=== PATIENT | male | born 1955 | race Caucasian/White ===

== ENCOUNTER 2023-09-04 07:28 | Emergency (ER) | payer MEDICARE, SELFPAY ==
[2023-09-04] VITALS (7 sets, daily range): BP systolic 115–150; BP diastolic 62–113; PULSE 90–97; RESP 18–28; TEMP 35.6; O2SAT 94–97; BMI 39.8
--- NOTE | 2023-09-04 08:07 | CRLHL7_ITS ---
For Patients: As a result of the Century Cures Act, medical imaging exams and procedure reports are released immediately into your electronic medical record. You may view this report before your referring provider. If you have questions, please contact your health care provider. Indication: Urine and bowel frequency Technique: Volumetric multidetector CT images of the abdomen and pelvis were obtained after the administration of intravenous contrast. 126 cc Isovue 370 low osmolar intravenous contrast Comparison: CT abdomen and pelvis August 05, 2021 Findings: The lung bases are clear. The liver is enlarged with cystic changes similar to previous exam. There is moderate hepatic steatosis. The portal vein is patent. There are calcified gallstones again seen within the gallbladder. There is no pericholecystic fluid or gallbladder wall thickening. There is no significant common biliary ductal dilatation or abrupt cut off. The spleen is normal in enhancement and size. The stomach and duodenum are grossly unremarkable. The pancreas is normal in enhancement without significant atrophy. The adrenal glands are unremarkable. The kidneys demonstrate preserved corticomedullary differentiation without evidence of obstructive uropathy. There is a mild amount of stool seen throughout the colon. There is mild distal colonic diverticulosis. The appendix is unremarkable. Again seen are reactive retroperitoneal and pelvic sidewall lymph nodes slightly increasing in conspicuity from comparison with prominence of the right greater than left pelvic sidewall lymph nodes. No evidence of mesenteric adenopathy. The aorta is nonaneurysmal. There is no significant atherosclerotic disease appreciated. The solid pelvic viscera are grossly unremarkable. There is no free fluid or free air. The anterior abdominal wall is intact without significant hernias. The lumbar vertebral body heights are grossly maintained with minimal endplate Schmorl`s defects and subchondral cystic changes. There is moderate to severe facet arthrosis. Impression: There is again seen a calculus in the distal left ureter measuring 2.3 millimeters just above the ureteropelvic junction similar to previous exam without evidence of definite obstructive uropathy. This finding was present on remote comparison. Stable hepatomegaly and hepatic steatosis with stable cystic changes of the liver. Incidental note made of mildly increased prominence of the right greater than left pelvic sidewall lymph nodes present on prior exam, slightly increased in size which may represent reactive changes. Correlate with history of increased WBC/lymphocyte count if there is persistent clinical concern. No other acute intra-abdominal abnormalities are identified. Please note that all CT scans at this facility use dose modulation, iterative reconstruction, and/or weight-based dosing when appropriate to reduce radiation dose to as low as reasonably achievable. Dictated by Chapin Coles MD @ 09/04/2023 10:23:22 AM (Electronically Signed)
--- NOTE | 2023-09-04 08:08 | ED_ITS ---
HPI - General Adult General Chief complaint: Urogenital Problems, Male Stated complaint: trouble urinating,bowel incontinence Time Seen by Provider: 09/04/23 07:55 History of Present Illness HPI narrative: This 68-year-old male comes in reporting urinary frequency with small amounts over the past couple days. He also has small bowel movements frequently. He does not report any particular abdominal pain. He does not indicate any fevers. A bladder scan was performed soon after arrival here and showed evidence of 31 mL of urine in his bladder. Related Data Home Medications Medication Instructions Recorded Confirmed Victoza 2-Isaac 09/04/23 hydrochlorothiazide 25 mg tablet 25 mg PO BID 09/04/23 09/04/23 insulin glargine 100 unit/mL (3 unit subcut 09/04/23 mL) subcutaneous pen (Lantus Solostar U-100 Insulin) lisinopril 40 mg tablet 40 mg PO DAILY 09/04/23 09/04/23 metformin 500 mg tablet,extended 1,000 mg PO BID 09/04/23 09/04/23 release 24 hr metoprolol tartrate 100 mg tablet 100 mg PO BID 09/04/23 09/04/23 potassium chloride 20 mEq 20 meq PO DAILY 09/04/23 09/04/23 tablet,extended release rosuvastatin 20 mg tablet 20 mg PO QPM 09/04/23 09/04/23 spironolactone 50 mg tablet 50 mg PO DAILY 09/04/23 09/04/23 warfarin 3 mg tablet PO 09/04/23 Previous Rx's Medication Instructions Recorded cephalexin 500 mg capsule 500 mg PO TID 10 days #30 caps 09/04/23 Allergies Allergy/AdvReac Type Severity Reaction Status Date / Time No Known Drug Allergies Allergy Verified 09/04/23 07:41 Review of Systems Status of ROS: Reports: 10 or more systems reviewed and unremarkable except as noted in History and below Narrative: Constitutional: No fevers, no weight gain or loss. Eyes: No discharge. No vision changes. HENT: No congestion, no sore throat, no ear pain. Cardiovascular: No chest pain, no palpitations. Respiratory: No shortness of breath, no wheezes, no cough. Gastrointestinal: No abdominal pain, no vomiting, no diarrhea. Genitourinary: No hematuria. Urinary frequency as described above. Musculoskeletal: Normal range of motion. Skin: No rashes, no pruritis. Neurological: No dizziness, weakness, sensory change, speech change. Endo/Heme/Allergies: No bruising or bleeding. No polydipsia. Pysch: no suicidality, no anxiety, no insomnia. All other systems reviewed and are negative. PFSH PFSH Social History Smoking Status: Former smoker How often do you have a drink containing alcohol: monthly or less How often do you have six or more drinks on one occasion: Never AUDIT-C Alcohol total score: 1 Non-prescribed substance use: denies use Exam Narrative: Exam Narrative: Constitutional: Well-developed, well-nourished, no acute distress. HEENT: Normocephalic, atraumatic. Neck: Normal range of motion. Nontender. Supple. Heart: Regular. No murmurs. Normal rate. Intact distal pulses. Lungs: Clear to auscultation. No chest discomfort. No wheezes, rhonchi, or rales. Abdomen: Normal bowel sounds. Mild diffuse tenderness. No rebound tenderness. Genitalia: Deferred. Back: No midline tenderness. Normal range of motion. Extremities: Normal range of motion. No injury. Skin: Intact. No rash. Warm. No erythema or pallor. Neurologic: No altered sensation. No weakness. Alert and oriented. Psychiatric: No suicidality. No anxiety or depression. No insomnia. Nursing notes and vitals signs are reviewed. Const: Vital Signs, click to edit/add: Vital Signs - 24 hr 09/04/23 07:39 09/04/23 08:53 09/04/23 09:00 Temperature 96.1 F L Pulse Rate Pulse Rate [Pulse Oximeter] 93 97 92 Respiratory Rate 18 28 H 24 Blood Pressure Blood Pressure [Le ft Upper Arm] 150/113 H 136/67 Blood Pressure [Ri ght Upper Arm] 115/68 Pulse Oximetry 96 96 94 Oxygen Delivery Me thod Room Air Room Air Room Air 09/04/23 10:04 09/04/23 10:19 09/04/23 10:30 Temperature Pulse Rate 96 90 Pulse Rate [Pulse Oximeter] 94 Respiratory Rate 20 Blood Pressure Blood Pressure [Le ft Upper Arm] Blood Pressure [Ri ght Upper Arm] 133/62 Pulse Oximetry 95 95 97 Oxygen Delivery Me thod Room Air 09/04/23 10:32 Temperature Pulse Rate 96 Pulse Rate [Pulse Oximeter] Respiratory Rate Blood Pressure 134/73 Blood Pressure [Le ft Upper Arm] Blood Pressure [Ri ght Upper Arm] Pulse Oximetry 96 Oxygen Delivery Me thod Course Vital Signs Vital signs: Initial Vital Signs Temperature 96.1 F L 09/04/23 07:39 Temperature Source Temporal Artery Scan 09/04/23 07:39 Pulse Rate 93 09/04/23 07:39 Respiratory Rate 18 09/04/23 07:39 Blood Pressure 115/68 09/04/23 07:39 Blood Pressure Mean 83 09/04/23 07:39 Blood Pressure Position Sitting 09/04/23 07:39 Pulse Oximetry 96 09/04/23 07:39 Oxygen Delivery Method Room Air 09/04/23 07:39 Vital Signs Temperature 96.1 F L 09/04/23 07:39 Pulse Rate 93 09/04/23 07:39 Respiratory Rate 18 09/04/23 07:39 Blood Pressure 115/68 09/04/23 07:39 Pulse Oximetry 96 09/04/23 07:39 Oxygen Delivery Method Room Air 09/04/23 07:39 Temperature 96.1 F L 09/04/23 07:39 Pulse Rate 96 09/04/23 10:32 Respiratory Rate 20 09/04/23 10:04 Blood Pressure 134/73 09/04/23 10:32 Pulse Oximetry 96 09/04/23 10:32 Oxygen Delivery Method Room Air 09/04/23 10:04 Medications Administered Medications: Discontinued Medications Generic Name Dose Route Start Last Admin Trade Name Freq PRN Reason Stop Dose Admin Sodium Chloride 500 mls @ 500 mls/hr 09/04/23 08:08 09/04/23 10:41 0.9 % Sodium Chloride 500 Ml IV 09/04/23 09:07 Infused .Q1H ONE Infusion Ceftriaxone Sodium 1 gm/ 100 mls @ 200 mls/hr 09/04/23 09:37 09/04/23 10:32 Sodium Chloride IVPB 09/04/23 09:38 Infused ONCE ONE Infusion Phenazopyridine HCl 200 mg 09/04/23 10:40 09/04/23 10:50 Phenazopyridine Hcl 200 Mg Tablet PO 09/04/23 10:41 200 mg ONCE ONE Administration Medical Decision Making MDM Narrative Medical decision making narrative: This patient comes in with frequent urges to void urine occurring about every 5 or 10 minutes. He has just a very small amount that comes out. Urinalysis today shows evidence of infection. CT imaging is also obtained of the abdomen and pelvis. This returns with reassuring findings. The patient did receive an IV dose of Rocephin 1 g and an oral dose of Pyridium for symptomatic relief. He is okay to be discharged home and received a prescription for Keflex 500 mg 3 times daily for 10 days. Lab Data Labs: Lab Results 09/04/23 09/04/23 Range/Units 08:06 08:25 WBC 10.31 (4.50-11.00) K/uL RBC 4.36 (4.30-5.90) m/uL Hgb 12.7 L (13.5-17.5) gm/dL Hct 37.2 (37.0-53.0) % MCV 85 (80-100) fL MCH 29 (26-34) pg MCHC 34 (32-36) gm/dL RDW Coeff of Yunior 15.2 (11.5-15.5) % Plt Count 200 (140-440) K/uL Neut % (Auto) 75.0 H (42.0-72.0) % Lymph % (Auto) 12.1 L (20-44) % [place] % (Auto) 10.8 (0.0-11.0) % Eos % (Auto) 1.1 (0.0-7.0) % Baso % (Auto) 0.5 (0.0-3.0) % Neut # (Auto) 7.70 H (1.7-7.0) K/uL Lymph # (Auto) 1.20 (0.90-2.90) K/uL Assumption # (Auto) 1.10 H (0.00-0.90) K/UL Eos # (Auto) 0.11 (0.00-0.50) K/uL Baso # (Auto) 0.05 (0.00-0.30) K/uL Abs Immat Gran (auto) 0.05 (0.00-0.30) K/uL Imm/Tot Granulo (auto) 0.5 % Sodium 132 L (135-149) mmol/L Potassium 4.7 (3.6-5.1) mmol/L Chloride 101 (96-114) mmol/L Carbon Dioxide 15 L (20-32) mmol/L Anion Gap 16 H (7-15) mEq/L BUN 29 (7-30) mg/dL Creatinine 1.0 (0.5-1.5) mg/dL Estimated Creat Clear 67.94 Estimated GFR 83 ml/min Glucose 477 H* (60-115) mg/dL Calcium 9.7 (8.4-10.6) mg/dL Urine Color Yellow (Yellow) Urine Appearance Cloudy A (Clear) Urine pH 5.5 (5.0-8.5) Ur Specific Carver 1.015 (1.000-1.030) Urine Protein Trace A (Negative) Urine Glucose (UA) 2+ A (Negative) Urine Ketones Negative (Negative) Urine Blood 1+ A (Negative) Urine Nitrite Negative (Negative) Urine Bilirubin Negative (Negative) Urine Urobilinogen 0.2 (0.2-1.0) Ur Leukocyte Esterase Negative (Negative) Urine RBC 0-2 (0-2) Urine WBC >100 A (0-5) Ur Squamous Epith Cells None (None-Few) Urine Bacteria Few A (None) Imaging Data CT scan - abdomen: Radiologist's impression: There is again seen a calculus in the distal left ureter measuring 2.3 millimeters just above the ureteropelvic junction similar to previous exam without evidence of definite obstructive uropathy. This finding was present on remote comparison. Stable hepatomegaly and hepatic steatosis with stable cystic changes of the liver. Incidental note made of mildly increased prominence of the right greater than left pelvic sidewall lymph nodes present on prior exam, slightly increased in size which may represent reactive changes. Correlate with history of increased WBC/lymphocyte count if there is persistent clinical concern. No other acute intra-abdominal abnormalities are identified. Discharge Plan Discharge Clinical Impression: Urinary tract infection Patient Disposition: Home, Self-Care Condition: Stable Additional Instructions: Take medication as prescribed. Use [id number] pyridium (Azo, Uristat, Sandra) also as needed and directed for symptomatic relief. Return if worsening. Prescriptions: New cephalexin 500 mg capsule 500 mg PO TID 10 Days Qty: 30 0RF No Action metoprolol tartrate 100 mg tablet 100 mg PO BID warfarin 3 mg tablet PO hydrochlorothiazide 25 mg tablet 25 mg PO BID lisinopril 40 mg tablet 40 mg PO DAILY metformin 500 mg tablet extended release 24 hr 1,000 mg PO BID spironolactone 50 mg tablet 50 mg PO DAILY rosuvastatin 20 mg tablet 20 mg PO QPM insulin glargine [Lantus Solostar U-100 Insulin] 100 unit/mL (3 mL) insulin pen subcut potassium chloride 20 mEq tablet extended release 20 meq PO DAILY Victoza 2-Isaac Follow Up/Referrals: Opal Richards DO [Primary Care Provider] - Stand [facility]one [facility] Info Inst[facility]
[2023-09-04 08:14] LABS: Appearance Urine Cloudy (Clear); Bilirubin Urine Negative (Negative); Blood Urine 1+ (Negative); Color Urine Yellow (Yellow); Glucose Urine 2+ (Negative); Ketones Urine Negative (Negative); Leukocyte Esterase Urine Negative (Negative); Nitrite Urine Negative (Negative); Protein Urine Trace (Negative); Specific Gravity Urine 1.015 (1.000-1.030); Urobilinogen Urine 0.2 (0.2-1.0); pH Urine 5.5 (5.0-8.5)
[2023-09-04] MEDS: 0.9 % SODIUM CHLORIDE 500 ML 500 ML IV (08:35)
[2023-09-04 08:37] LABS: Basophils Absolute Auto 0.05 K/uL (0.00-0.30); Basophils Percent Auto 0.5 % (0.0-3.0); Eosinophils Absolute Auto 0.11 K/uL (0.00-0.50); Eosinophils Percent Auto 1.1 % (0.0-7.0); Hematocrit 37.2 % (37.0-53.0); Hemoglobin* 12.7 gm/dL (13.5-17.5); Immature Granulocytes Abs Auto 0.05 K/uL (0.00-0.30); Immature Granulocytes Pct Auto 0.5 %; Lymphocytes Percent Auto 12.1 % (20-44); Mean Corpuscular HGB Conc 34 gm/dL (32-36); Mean Corpuscular Hemoglobin 29 pg (26-34); Mean Corpuscular Volume 85 fL (80-100); Monocytes Percent Auto 10.8 % (0.0-11.0); Platelet Count* 200 K/uL (140-440); RDW Coefficient of Variation % 15.2 % (11.5-15.5); Red Blood Count 4.36 m/uL (4.30-5.90); White Blood Count* 10.31 K/uL (4.50-11.00)
[2023-09-04 08:40] LABS: Slide Review Reflex No
[2023-09-04 08:49] LABS: Chloride* 101 mmol/L (96-114)
[2023-09-04 08:50] LABS: Potassium* 4.7 mmol/L (3.6-5.1); Sodium* 132 mmol/L (135-149)
[2023-09-04 08:52] LABS: Est. Creatinine Clearance* 67.94; Estimated Glomerular Filt Rate 83 ml/min
[2023-09-04 08:53] LABS: Anion Gap 16 mEq/L (7-15); Blood Urea Nitrogen* 29 mg/dL (7-30); Calcium* 9.7 mg/dL (8.4-10.6); Carbon Dioxide* 15 mmol/L (20-32)
[2023-09-04 08:54] LABS: Bacteria Urine Few; RBC Urine 0-2 (0-2); WBC Urine >100 (0-5)
[2023-09-04 08:56] LABS: Glucose* 477 mg/dL (60-115)
--- NOTE | 2023-09-04 08:56 | ED.NURSE ---
Pt up to the restroom to urinate. Pt requested assistance while in the restroom due to feeling weak and shaky after urinating, pt needed assist of 1 to walk back to his room. Pt very SOB and shaky with exertion of walking. Vitals rechecked, notified.
--- NOTE | 2023-09-04 09:11 | ED.NURSE ---
Per administrative tech, pt needs IV access higher on arm due to speed of contrast bolus for CT scan. Pt agreeable to 2nd IV start for CT scan to be completed. 2nd IV started in pt L AC.
[2023-09-04] MEDS: cefTRIAXone 1 GM in 0.9 % SODIUM CHLORIDE Mini-bag 100 ML IVPB (10:04)
--- NOTE | 2023-09-04 10:34 | ED.NURSE ---
Pt continues to have urinary frequency and urgency, has been up to the bathroom several times. aware.
[2023-09-04] MEDS: PHENAZOPYRIDINE HCL 200 MG TABLET PO (10:50)
== END 2023-09-04 11:33 | disposition home or self-care (01) ==
PROVIDERS: Emergency Provider Emergency Medicine Emergency Medical Services; PCP Family Medicine
DX: N39.0 Urinary tract infection, site not specified (principal)
CPT/HCPCS: 36415; 51798; 74177; 80048; 81001; 85025; 87086; 87186; 96365; 99283; 99284; 99285; A9270; J0696; J7120; Q9967

== ENCOUNTER 2024-01-16 22:45 | Emergency (ER) | payer MEDICARE, SELFPAY ==
[2024-01-16 22:56] VITALS: BP 114/69; PULSE 81; RESP 28; TEMP 36.4; O2SAT 98
--- NOTE | 2024-01-16 23:07 | ED_ITS ---
HPI - General Adult General Chief complaint: Constipation Stated complaint: stomach pain Time Seen by Provider: 01/16/24 23:06 History of Present Illness HPI narrative: Pt states he can't have a BM , has felt impacted for about a week. Feels weaker than usual. Is also now having trouble urinating. Pt is having substantial pain in his anus. Pt is tachypneic in triage. 68-year-old man presenting to the emergency department with concern of increasing abdominal pain. Feels like he needs to have a bowel movement but can not really accomplish this though he does acknowledge diarrheal stools. Has been experiencing explosive diarrhea over the last week or so aided by stool softeners. Actually had 2 diarrheal bowel movements today. He says feeling though lot of pressure in the anal rectal area he says. Now feeling more weak. No fever. Doesn't feeling like he has been emptying urine now. In later questioning he does acknowledge a history of prostatic abscess Related Data Home Medications ?Medication ?Instructions ?Recorded ?Confirmed Victoza 2-Isaac 1.8 mg SUBQ-VAC DAILY 09/04/23 02/05/24 hydrochlorothiazide 25 mg tablet 50 mg PO DAILY 09/04/23 02/06/24 insulin glargine 100 unit/mL (3 80 unit subcut Q24H 09/04/23 02/06/24 mL) subcutaneous pen (Lantus Solostar U-100 Insulin) lisinopril 40 mg tablet 40 mg PO DAILY 09/04/23 02/05/24 metformin 500 mg tablet,extended 1,000 mg PO BID 09/04/23 02/05/24 release 24 hr metoprolol tartrate 100 mg tablet 100 mg PO BID 09/04/23 02/05/24 potassium chloride 20 mEq 20 meq PO DAILY 09/04/23 02/05/24 tablet,extended release rosuvastatin 20 mg tablet 20 mg PO QPM 09/04/23 02/05/24 spironolactone 50 mg tablet 50 mg PO DAILY 09/04/23 02/05/24 warfarin 3 mg tablet See Rx Instructions PO .COMPLEX 09/04/23 02/06/24 cetirizine 10 mg tablet 10 mg PO DAILY 02/06/24 02/06/24 ferrous sulfate 325 mg (65 mg 325 mg PO DAILY 02/06/24 02/06/24 iron) tablet,delayed release liraglutide 0.6 mg/0.1 mL (18 mg/3 1.8 mg subcut DAILY 02/06/24 02/06/24 mL) subcutaneous pen injector sulfamethoxazole 800 1 tab PO BID 02/06/24 02/06/24 mg-trimethoprim 160 mg tablet (Bactrim DS) Allergies Allergy/AdvReac Type Severity Reaction Status Date / Time No Known Drug Allergies Allergy Verified 02/05/24 21:09 Review of Systems Status of ROS: Reports: 6 or more systems reviewed and unremarkable except as noted in History and below [facility] Medical History (Updated 02/06/24 @ 14:56 by Breezy Gomez MD) Abscess of prostate ?N41.2 - Abscess of prostate (ICD-10) MRSA (methicillin resistant Staphylococcus aureus) ?A49.02 - Methicillin resistant Staphylococcus aureus infection, unspecified site (ICD-10) CKD (chronic kidney disease) stage 2, GFR 60-89 ml/min (01/17/24) ?N18.2 - Chronic kidney disease, stage 2 (mild) (ICD-10) Sleep apnea (03/30/16) ?G47.30 - Sleep apnea, unspecified (ICD-10) Right atrial thrombus (10/08/19) ?I51.3 - Intracardiac thrombosis, not elsewhere classified (ICD-10) Polyp of colon (12/31/17) ?K63.5 - Polyp of colon (ICD-10) Patent foramen ovale (10/09/16) ?Q21.12 - Patent foramen ovale (ICD-10) Obesity, morbid (03/07/23) ?E66.01 - Morbid (severe) obesity due to excess calories (ICD-10) Mixed hyperlipidemia (03/19/17) ?E78.2 - Mixed hyperlipidemia (ICD-10) Melena (12/10/17) ?K92.1 - Melena (ICD-10) Hypertensive urgency (10/16/17) ?I16.0 - Hypertensive urgency (ICD-10) Hypertension (03/30/16) ?I10 - Essential (primary) hypertension (ICD-10) H/O bacterial endocarditis (06/21/18) ?Z86.79 - Personal history of other diseases of the circulatory system (ICD- 10) Fatigue (11/21/18) ?R53.83 - Other fatigue (ICD-10) Edema of lower extremity (11/21/18) ?R60.0 - Localized edema (ICD-10) Type 2 diabetes mellitus (03/03/11) ?E11.9 - Type 2 diabetes mellitus without complications (ICD-10) Cardiomyopathy (07/10/18) ?I42.9 - Cardiomyopathy, unspecified (ICD-10) Ascending aorta dilation (07/02/23) ?I77.810 - Thoracic aortic ectasia (ICD-10) Anticoagulation monitoring, INR range 2-3 (10/09/19) ?Z79.01 - detention (current) use of anticoagulants (ICD-10) Adenomatous colon polyp (01/01/18) ?D12.6 - Benign neoplasm of colon, unspecified (ICD-10) Surgical History (Updated 02/06/24 @ 00:16 by Tyra Brenner MD) H/O cystoscopy ?Z98.890 - Other specified postprocedural states (ICD-10) H/O colonoscopy ?Z98.890 - Other specified postprocedural states (ICD-10) Social History (Updated 02/06/24 @ 00:18 by Tyra Brenner MD) Narrative: Denies tobacco or alcohol use. Wishes to be FULL CODE. What is your current living situation?: I presently have a place to live Problems where you live: no known problems Problems where you live details: no known problem In the past 12 months, utilities in danger of being shut off: no In past 12 months, lack of transportation kept you from medical appts, meetings, work, or getting things needed for daily living: no In the past 12 mos, have been you worried that your food would run out before you had money to buy more?: never true In the past 12 mos, the food you bought just didn't last and you didn't have money to buy more?: never true Smoking Status: Former smoker Do you use any of these nicotine containing products: None Second hand tobacco smoke exposure: No How often do you have a drink containing alcohol: monthly or less How often do you have six or more drinks on one occasion: Never AUDIT-C Alcohol total score: 1 Non-prescribed substance use: denies use Caffeine: Yes (Coffee) How often does anyone, including family, friends and others, physically hurt you : never How often does anyone, including family, friends and others, insult or talk down to you: never How often does anyone, including family, friends and others, threaten you with harm: never How often does anyone, including family, friends and others, scream or curse at you: never service: No Exam Narrative: Exam Narrative: Lying on his left side nearly flat in the bed. Seems generally uncomfortable. Lightly labored in breathing. Lungs are clear. Heart in regular rate and rhythm without murmur or gallop. Abdomen is overweight soft and generally tender will more so with lower abdomen. No peritoneal signs. Digital rectal exam does not reveal any significant stool but is initially tender although palpation of the prostate does not elicit much in the way of a pain response. Is well-perfused. Extremities are without edema. Genitourinary exam noting very small urethral meatus. No inflammatory changes noted. Const: Vital Signs, click to edit/add: Vital Signs - 24 hr 01/16/24 22:56 01/17/24 00:38 01/17/24 01:50 Temperature 97.6 F Pulse Rate 74 Pulse Rate [Pulse Oximeter] 81 73 Respiratory Rate 28 H Blood Pressure 109/67 Blood Pressure [Ri ght Upper Arm] 114/69 Pulse Oximetry 98 95 99 Oxygen Delivery Me thod Room Air Room Air 01/17/24 01:51 01/17/24 02:02 01/17/24 02:20 Temperature Pulse Rate 80 Pulse Rate [Pulse Oximeter] 75 Respiratory Rate 18 16 Blood Pressure 98/54 L Blood Pressure [Ri ght Upper Arm] 109/63 110/68 Pulse Oximetry 97 97 Oxygen Delivery Me thod Room Air 01/17/24 02:20 01/17/24 03:02 01/17/24 03:15 Temperature 98.4 F Pulse Rate 77 83 74 Pulse Rate [Pulse Oximeter] Respiratory Rate 16 Blood Pressure 110/68 123/79 Blood Pressure [Ri ght Upper Arm] Pulse Oximetry 91 97 90 Oxygen Delivery Me thod 01/17/24 03:16 Temperature Pulse Rate Pulse Rate [Pulse Oximeter] Respiratory Rate Blood Pressure Blood Pressure [Ri ght Upper Arm] Pulse Oximetry 96 Oxygen Delivery Me thod Documenting provider has reviewed patient's vital signs: yes Course Vital Signs Vital signs: Initial Vital Signs Temperature 97.6 F 01/16/24 22:56 Temperature Source Oral 01/16/24 22:56 Pulse Rate 81 01/16/24 22:56 Respiratory Rate 28 H 01/16/24 22:56 Blood Pressure 114/69 01/16/24 22:56 Blood Pressure Mean 84 01/16/24 22:56 Blood Pressure Position Standing 01/16/24 22:56 Pulse Oximetry 98 01/16/24 22:56 Oxygen Delivery Method Room Air 01/16/24 22:56 Vital Signs Temperature 97.6 F 01/16/24 22:56 Pulse Rate 81 01/16/24 22:56 Respiratory Rate 28 H 01/16/24 22:56 Blood Pressure 114/69 01/16/24 22:56 Pulse Oximetry 98 01/16/24 22:56 Oxygen Delivery Method Room Air 01/16/24 22:56 Temperature 98.4 F 01/17/24 03:02 Pulse Rate 74 01/17/24 03:15 Respiratory Rate 16 01/17/24 03:02 Blood Pressure 123/79 01/17/24 03:02 Pulse Oximetry 96 01/17/24 03:16 Oxygen Delivery Method Room Air 01/17/24 01:51 Medications Administered Medications: Discontinued Medications Generic Name Dose Route Start Last Admin Trade Name Freq PRN Reason Stop Dose Admin Hydromorphone HCl 0.5 mg 01/17/24 03:15 01/17/24 04:14 Hydromorphone 0.5 Mg/0.5 Ml Inj IVP 0.5 mg ONCE PRN Administration pain Hyoscyamine 0.25 mg 01/17/24 01:11 01/17/24 01:36 Hyoscyamine Sulfate 0.125 Mg Tab SUBLINGUAL 01/17/24 01:12 0.25 mg ONCE ONE Administration Sodium Chloride 500 mls @ 500 mls/hr 01/16/24 23:19 01/17/24 01:08 0.9 % Sodium Chloride 500 Ml IV 01/17/24 00:18 Infused .Q1H ONE Infusion Piperacillin Sod/Tazobactam 100 mls @ 200 mls/hr 01/17/24 02:19 01/17/24 03:12 Sod 3.375 gm/ Sodium Chloride IVPB 01/17/24 02:20 Infused ONCE ONE Infusion Vancomycin HCl 2,000 mg/ 520 mls @ 260 mls/hr 01/17/24 02:19 01/17/24 03:04 Sodium Chloride IVPB 01/17/24 02:20 260 mls/hr ONCE ONE Administration Protocol Sodium Chloride 1,000 mls @ 1,000 mls/hr 01/17/24 02:19 01/17/24 02:41 0.9 % Sodium Chloride 1000 Ml IV 01/17/24 03:18 1,000 mls/hr .Q1H ONE Administration Lidocaine HCl 6 ml 01/17/24 03:12 01/17/24 00:45 Lidocaine Hcl 2 % Jelly (Top) Sterile UR 6 ml ONCE PRN Administration Morphine Sulfate 4 mg 01/17/24 01:11 01/17/24 01:16 Morphine 4 Mg/Ml Inj IVP 01/17/24 01:12 4 mg ONCE ONE Administration Medical Decision Making MDM Narrative Medical decision making narrative: At the same time feels like he does not need anything for pain or nausea I would have concern of recurrence of this prostatic issue/abscess or possibly diverticulitis plus or minus associated abscess. Do not think that he is actually constipated. Probably having some urinary retention. Concern infection is also in the setting of diabetes. Will be imaging abdomen and pelvis. IV fluid bolus. Labs show white count of over 16,000 with a CRP also elevated at 3.5. INR is 2.9. Reviewed events of 2017. Apparently did have admission for sepsis at this time with prostatic abscess and had in endocarditis with atrial? thrombus as well as what sounds like seeding of his spine. Anticoagulated with Coumadin since. He also notes a history of MRSA in this process. Bladder scanned for 300 mL which historically here means more like 450 mL. We did attempt to catheterize but very small urethral meatus it made this difficult and unable to accomplish. CT imaging does not look to show a significantly large bladder but probably in the 400 mL range. By my read looks to have abscessing multiloculated structure in the area of the prostate. There is rim enhancement. Radiology over-read as below Study:?CT-Abdomen/Pelvis w/ 123cc [id number]/8/2024 11:54:12 PM Ordering Physician:?Breezy Gomez Final Report: INDICATION: Abdominal pain, rectal pressure. TECHNIQUE: CT abdomen and pelvis acquired with 123 mL Isovue 370 contrast. COMPARISON: CT abdomen/pelvis dated 09/04/2023. FINDINGS: Lower chest: No focal consolidation. Liver: Multiple cysts and to small to characterize hypodense lesions, not significantly changed. Gallbladder and bile ducts: Cholelithiasis. No secondary signs of acute cholecystitis. Pancreas: Unremarkable. Spleen: Unremarkable. Adrenal glands: Unremarkable. Kidneys: Kidneys enhance symmetrically, without hydronephrosis. Stable punctate nonobstructing calculus in the distal left ureter. Retroperitoneum: Again seen are prominent but subcentimeter retroperitoneal lymph nodes. Bowel and mesentery: Bowel is not obstructed. No significant ascites, no pneumoperitoneum. Bladder: Unremarkable for degree of distention. Reproductive organs: Complex multi-septated collection in the prostate measuring 5.3 x 6.6 x 5.0 cm with peripheral enhancement, likely reflective of a large prostatic abscess. Penile calcifications are noted, unchanged, may reflect component of Peyronie`s disease. Pelvic lymph nodes: Slight interval increase in size of a left pelvic sidewall lymph node, now measuring 1.1 x 1.8 cm. Vessels: Scattered atherosclerotic calcifications. Abdominal wall: No acute abdominal wall abnormality. Bones: Multilevel degenerative changes of the spine. Bones are osteopenic. IMPRESSION: 1. Complex multi-septated collection in the prostate measuring 5.3 x 6.6 x 5.0 cm with peripheral enhancement, worrisome for a large prostatic abscess. 2. Slight interval increase in size of a left pelvic sidewall lymph node. Underlying prostatic neoplasm would be difficult to exclude, recommend correlation with PSA. 3. Additional incidental findings as above. I did initially call to [facility] but they would not consider Mr. [place] active patient. I had hoped to speak with urology. Call to [facility] as he is an [facility] patient and they did have some bed availability. Briefly spoke with Urology on- call who would be happy to consult but beyond that without advice. Spoke with Dr. MONTOYA who is thankfully acccepting pending bed availability; on a wait. With inability to catheterize, I am encouraging small frequent tabs at urination. Is actually able to void. I will be initiating antibiotics. Zosyn and vancomycin. There is this MRSA history that needs to be considered. Blood cultures have been obtained. Does not appear to be septic but I think this has strong possibility of evolving. Urinalysis looks to be infected. Blood pressure is low but stable at around 108 systolic generally. Will be bolusing a L of fluids. Has already received 500 mL. Medical Records Medical records reviewed: Yes I reviewed the patient's medical records Lab Data Lab results reviewed: Yes I reviewed the patient's lab results Labs: Lab Results 01/16/24 01/16/24 01/17/24 Range/Units 23:08 23:26 01:40 WBC 16.02 H (4.50-11.00) K/uL RBC 4.68 (4.30-5.90) m/uL Hgb 13.0 L (13.5-17.5) gm/dL Hct 39.8 (37.0-53.0) % MCV 85 (80-100) fL MCH 28 (26-34) pg MCHC 33 (32-36) gm/dL RDW Coeff of Yunior 13.6 (11.5-15.5) % Plt Count 367 (140-440) K/uL Neut % (Auto) 73.0 H (42.0-72.0) % Lymph % (Auto) 13.1 L (20-44) % [place] % (Auto) 10.1 (0.0-11.0) % Eos % (Auto) 2.0 (0.0-7.0) % Baso % (Auto) 0.2 (0.0-3.0) % Neut # (Auto) 11.70 H (1.7-7.0) K/uL Lymph # (Auto) 2.10 (0.90-2.90) K/uL [place] # (Auto) 1.60 H (0.00-0.90) K/UL Eos # (Auto) 0.30 (0.00-0.50) K/uL Baso # (Auto) 0.00 (0.00-0.30) K/uL Abs Immat Gran (auto) 0.30 (0.00-0.30) K/uL Imm/Tot Granulo (auto) 1.6 % INR 2.90 H (0.91-1.10) Sodium 136 (135-149) mmol/L Potassium 5.4 H (3.6-5.1) mmol/L Chloride 107 (96-114) mmol/L Carbon Dioxide 19 L (20-32) mmol/L Anion Gap 10 (7-15) mEq/L BUN 28 (7-30) mg/dL Creatinine 1.4 (0.5-1.5) mg/dL Estimated GFR 55 ml/min Glucose 161 H (60-115) mg/dL Calcium 10.5 (8.4-10.6) mg/dL Total Bilirubin 0.5 (0.1-1.5) mg/dL Direct Bilirubin 0.2 (0.0-0.5) mg/dL AST 25 (12-35) U/L ALT 27 (4-50) U/L Alkaline Phosphatase 76 (40-150) U/L C-Reactive Protein 3.5 H (0.5-1.0) mg/dL Total Protein 9.5 H (6.0-8.3) g/dL Albumin 4.5 (3.3-5.0) g/dL Urine Color Yellow (Yellow) Urine Appearance Cloudy A (Clear) Urine pH 5.5 (5.0-8.5) Ur Specific [place] <= 1.005 (1.000-1.030) Urine Protein Negative (Negative) Urine Glucose (UA) Negative (Negative) Urine Ketones Negative (Negative) Urine Blood 1+ A (Negative) Urine Nitrite Negative (Negative) Urine Bilirubin Negative (Negative) Urine Urobilinogen 0.2 (0.2-1.0) Ur Leukocyte Esterase 1+ A (Negative) Urine RBC 2-5 A (0-2) Urine WBC 10-25 A (0-5) Ur Squamous Epith Cells Few (None-Few) Amorphous Sediment Few A (None) Urine Bacteria Moderate A (None) POC Creatinine 1.7 H (0.6-1.3) mg/dl ECG Data Attestation: I personally reviewed and interpreted this ECG as follows: (Sinus rhythm. First-degree AV block. Generally low voltage) Discharge Plan Discharge Clinical Impression: Abscess of prostate Patient Disposition: [facility] Condition: Stable Prescriptions: No Action metoprolol tartrate 100 mg tablet 100 mg PO BID warfarin 3 mg tablet See Rx Instructions PO .COMPLEX Rx Instructions: 9 mg every Mon, 6 mg all other days hydrochlorothiazide 25 mg tablet 50 mg PO DAILY lisinopril 40 mg tablet 40 mg PO DAILY metformin 500 mg tablet extended release 24 hr 1,000 mg PO BID spironolactone 50 mg tablet 50 mg PO DAILY rosuvastatin 20 mg tablet 20 mg PO QPM insulin glargine [Lantus Solostar U-100 Insulin] 100 unit/mL (3 mL) insulin pen 80 unit subcut Q24H potassium chloride 20 mEq tablet extended release 20 meq PO DAILY Victoza 2-Isaac 1.8 mg SUBQ-VAC DAILY cetirizine 10 mg tablet 10 mg PO DAILY Rx Instructions: Take 1 Tablet (10 mg) by mouth once daily. ferrous sulfate 325 mg (65 mg iron) tablet,delayed release (DR/EC) 325 mg PO DAILY Rx Instructions: Take 1 Tablet (325 mg) by mouth once daily with a meal. liraglutide 0.6 mg/0.1 mL (18 mg/3 mL) pen injector 1.8 mg SUBCUT DAILY Rx Instructions: Inject 1.8 mg subcutaneous once daily. sulfamethoxazole-trimethoprim [Bactrim DS] 800-160 mg tablet 1 tab PO BID
--- NOTE | 2024-01-16 23:19 | CT_ITS ---
Patient: KEVIN DUNLAP Facility:?[facility] Patient ID:?[id number] Site Patient ID:?[id number]. Site :?[id number] Study:?CT-Abdomen/Pelvis w/ 123cc [id number]/8/2024 11:54:12 PM Ordering Physician:?Breezy Gomez Final Report: INDICATION: Abdominal pain, rectal pressure. TECHNIQUE: CT abdomen and pelvis acquired with 123 mL Isovue 370 contrast. COMPARISON: CT abdomen/pelvis dated 09/04/2023. FINDINGS: Lower chest: No focal consolidation. Liver: Multiple cysts and to small to characterize hypodense lesions, not significantly changed. Gallbladder and bile ducts: Cholelithiasis. No secondary signs of acute cholecystitis. Pancreas: Unremarkable. Spleen: Unremarkable. Adrenal glands: Unremarkable. Kidneys: Kidneys enhance symmetrically, without hydronephrosis. Stable punctate nonobstructing calculus in the distal left ureter. Retroperitoneum: Again seen are prominent but subcentimeter retroperitoneal lymph nodes. Bowel and mesentery: Bowel is not obstructed. No significant ascites, no pneumoperitoneum. Bladder: Unremarkable for degree of distention. Reproductive organs: Complex multi-septated collection in the prostate measuring 5.3 x 6.6 x 5.0 cm with peripheral enhancement, likely reflective of a large prostatic abscess. Penile calcifications are noted, unchanged, may reflect component of Peyronie`s disease. Pelvic lymph nodes: Slight interval increase in size of a left pelvic sidewall lymph node, now measuring 1.1 x 1.8 cm. Vessels: Scattered atherosclerotic calcifications. Abdominal wall: No acute abdominal wall abnormality. Bones: Multilevel degenerative changes of the spine. Bones are osteopenic. IMPRESSION: 1. Complex multi-septated collection in the prostate measuring 5.3 x 6.6 x 5.0 cm with peripheral enhancement, worrisome for a large prostatic abscess. 2. Slight interval increase in size of a left pelvic sidewall lymph node. Underlying prostatic neoplasm would be difficult to exclude, recommend correlation with PSA. 3. Additional incidental findings as above. Please note that all CT scans at this facility use dose modulation, iterative reconstruction, and/or weight-based dosing when appropriate to reduce radiation dose to as low as reasonably achievable. Dictated by Morenita Jeffery MD @ 01/17/2024 12:53:39 AM ----- ADDENDUM ----- Report receipt confirmed with Dr. Gomez at 00:56 on 01/17/2024. Dictated by Morenita Jeffery MD @ Jan 17 2024 2:05AM Signed by:?Morenita Jeffery MD @01/17/2024 12:53:39 AM (Electronic Signature)
[2024-01-16 23:24] LABS: Basophils Percent Auto 0.2 % (0.0-3.0); Hematocrit 39.8 % (37.0-53.0); Immature Granulocytes Pct Auto 1.6 %; Lymphocytes Percent Auto 13.1 % (20-44); Mean Corpuscular HGB Conc 33 gm/dL (32-36); Mean Corpuscular Hemoglobin 28 pg (26-34); Mean Corpuscular Volume 85 fL (80-100); Monocytes Percent Auto 10.1 % (0.0-11.0); Platelet Count* 367 K/uL (140-440); RDW Coefficient of Variation % 13.6 % (11.5-15.5); Red Blood Count 4.68 m/uL (4.30-5.90); White Blood Count* 16.02 K/uL (4.50-11.00)
[2024-01-16 23:29] LABS: Creatinine, Point-of-Care* 1.7 mg/dl (0.6-1.3)
[2024-01-16 23:34] LABS: Slide Review Reflex No
--- OUTSIDE RECORDS SUMMARY | 2024-01-16 23:34 | XMS_ITS | Clinical Summary ---
Author Name Unknown Organization [employer] [facility] [employer] [facility] Address [place], [place] [address] Care Team Providers Care Attendant Sales Name Role Phone Opal Richards DO Primary Care Provider [phone] Allergies Active Allergy Reactions Criticality Noted Date Comments Iodine Hives 10/08/2019 Medications Medication Sig Dispensed Refills Start Date End Date Status aspirin 325 mg tablet Take 325 mg by mouth. Active Vit B Comp & C-Vit E-FA-Kaitlin-Zn 0.4 mg tab Take 1 Tab by mouth. Active Agyze-1-WJL-EPA-Fi sh Oil 1,000 mg (120 mg-180 mg) capIndications:Hyp erlipidemia, unspecified hyperlipidemia type Take 1 capsule by mouth once daily. 90 capsule 3 0 Active bd insulin pen needle uf mini 31 gauge x 11/23Indications:U ncontrolled type 2 diabetes mellitus with hyperglycemia (HC) TO BE USED WITH VICTOZA ONCE DAILY 100 Each 3 2 Active Microlet LancetIndications: Uncontrolled type 2 diabetes mellitus with hyperglycemia (HC) USE TO TEST BLOOD GLUCOSE FOUR TIMES A DAY 400 Each 3 2 Active amLODIPine (NORVASC) 10 mg tabletIndications: Hypertension Take 1 Tablet (10 mg) by mouth once daily. 90 Tablet 3 3 Active blood-glucose meterIndications:U ncontrolled type 2 diabetes mellitus with hyperglycemia (HC) As directed. Dispense meter, test strips, lancets covered by pt ins. E11.65 NIDDM type II, uncontrolled - Test 4 times/day. Reason: High A1C 1 Each 3 Active hydroCHLOROthiazid e (HCTZ) 25 mg tabletIndications: Hypertension Take 2 Tablets (50 mg) by mouth once daily. 180 Tablet 3 3 Active lisinopriL (PRINIVIL; ZESTRIL) 40 mg tabletIndications: Hypertension Take 1 Tablet (40 mg) by mouth once daily. 90 Tablet 3 3 Active potassium chloride (K-TAB) 20 mEq extended-release tabletIndications: Hypokalemia Take 1 Tablet (20 mEq) by mouth once daily with a meal. 90 Tablet 3 3 Active metFORMIN (GLUCOPHAGE XR) 500 mg Extended-Release tabletIndications: Uncontrolled type 2 diabetes mellitus with hyperglycemia (HC) Take 2 Tablets (1,000 mg) by mouth two times daily with meals. 360 Tablet 3 3 Active icosapent ethyL (Vascepa) 1 gram capsuleIndications :Hypertriglyceride ellen Take 2 g by mouth two times daily with meals. 400 Capsule 3 3 Active spironolactone (ALDACTONE) 50 mg tabletIndications: HTN (hypertension) Take 1 Tablet (50 mg) by mouth every morning. 100 Tablet 3 3 Active polyethylene glycol-electrolyte (GOLYTELY) 236-22.74-6.74 -5.86 gram suspensionIndicati ons:Encounter for screening colonoscopy Drink 2 liters the day before the procedure and 2 liters 6 hours prior to procedure. 4000 mL 3 Active blood sugar diagnostic (Accu-Chek Guide test strips) stripIndications:U ncontrolled type 2 diabetes mellitus with hyperglycemia (HC) TEST 4 TIMES PER DAY DIRECTED 400 Each 3 3 Active Dexcom G7 Sensor for continuous blood glucose monitor (CGM)Indications:U ncontrolled type 2 diabetes mellitus with hyperglycemia (HC) To be used to read blood sugars, follow hurricane tracker directions. 9 Each 3 3 Active Dexcom G7 Physics Faculty Member for continuous blood glucose monitor (CGM)Indications:U ncontrolled type 2 diabetes mellitus with hyperglycemia (HC) To be used to read blood sugars follow hurricane tracker directions. 1 Each 3 Active acetaminophen (TylenoL) 325 mg tablet Take by mouth every 4 hours if needed. Max acetaminophen dose: 4000mg in 24 hrs. 0 3 Active rosuvastatin (CRESTOR) 20 mg tabletIndications: Hyperlipidemia, unspecified hyperlipidemia type Take 1 Tablet (20 mg) by mouth at bedtime. 90 Tablet 2 3 Active metoprolol tartrate (LOPRESSOR) 100 mg tabletIndications: Hypertension Take 1 Tablet (100 mg) by mouth two times daily. 180 Tablet 2 4 Active liraglutide (VICTOZA) 0.6 mg/0.1 mL (18 mg/3 mL) subcutaneous pen Inject 1.8 mg subcutaneous once daily. 36 mL 4 Active Insulin [place], Disposable, (Novofine 32) 32 gauge x 1/4 To be used once daily with Victoza 200 Each 2 4 Active ferrous sulfate 325 mg delayed release tabletIndications: Iron deficiency anemia, unspecified iron deficiency anemia type Take 1 Tablet (325 mg) by mouth once daily with a meal. 90 Tablet 4 Active Lantus Solostar U-100 Insulin 100 unit/mL (3 mL) penIndications:Unc ontrolled type 2 diabetes mellitus with hyperglycemia (HC) Inject 80 units subcutaneous before bedtime. 90 mL 4 Active warfarin (COUMADIN) 3 mg tabletIndications: Right atrial thrombus,Patent foramen ovale,Anticoagulat ion monitoring, INR range 2-3,Anticoagulant long-term use Take by mouth 5/6: 6 mg; 01/22: Hold; 01/23: Hold; 01/24: Hold; 01/25: Hold; 01/26: Hold; Otherwise 9 mg every Mon; 6 mg all other days in the evening OR as directed 4 Active enoxaparin (LOVENOX) 120 mg/0.8 mL injectionIndicatio ns:Pre-op examination,Right atrial thrombus,Patent foramen ovale,Anticoagulat ion monitoring, INR range 2-3 Inject 115 mg subcutaneous every 12 hours. Waste a small amount then Inject 115 mg (about 0.77 mL) subcutaneous every 12 hours. Begin the morning of 01-25-2024. Last dose of enoxaparin to be taken no later than 8am in the morning (otherwise hold the dose) of 01-27-2024 4 mL 4 Active enoxaparin (Lovenox) 120 mg/0.8 mL injectionIndicatio ns:Right atrial thrombus,Patent foramen ovale,Anticoagulat ion monitoring, INR range 2-3 Inject 120 mg subcutaneous every 12 hours. 8 mL 1 3 01/14/20 24 Discontinue d(*Medicati on adjustment) Lantus Solostar U-100 Insulin 100 unit/mL (3 mL) penIndications:Unc ontrolled type 2 diabetes mellitus with hyperglycemia (HC) Inject 72 units subcutaneous before bedtime. 90 mL 4 01/14/20 24 Discontinue d(*Medicati on adjustment) warfarin (COUMADIN) 3 mg tabletIndications: Right atrial thrombus,Patent foramen ovale,Anticoagulat ion monitoring, INR range 2-3,Anticoagulant long-term use Take by mouth 4/5: 3 mg; 4/6: 3 mg; 4/8: 6 mg; Otherwise 9 mg every Mon; 6 mg all other days in the evening OR as directed 4 12/20/19 24 Discontinue d(Other - add note to specify (E-cancel not sent)) warfarin (COUMADIN) 3 mg tabletIndications: Right atrial thrombus,Patent foramen ovale,Anticoagulat ion monitoring, INR range 2-3,Anticoagulant long-term use Take by mouth 9 mg (3 mg x 3) every Mon; 6 mg (3 mg x 2) all other days in the evening OR as directed 4 01/14/20 24 Discontinue d(Other - add note to specify (E-cancel not sent)) enoxaparin (LOVENOX) 100 mg/mL injectionIndicatio ns:Pre-op examination,Right atrial thrombus,Patent foramen ovale,Anticoagulat ion monitoring, INR range 2-3 Inject 100 mg subcutaneous every 12 hours. Begin enoxaparin 100 mg subcutaneously (under the skin) every 12 hours, the morning of 01-25-2024. Last dose of enoxaparin to be taken no later than 8am in the morning (otherwise hold the dose) of 01-27-2024 5 mL 4 01/15/20 24 Discontinue d(*Medicati on adjustment) enoxaparin (LOVENOX) 100 mg/mL injectionIndicatio ns:Pre-op examination,Right atrial thrombus,Patent foramen ovale,Anticoagulat ion monitoring, INR range 2-3 Inject 115 mg subcutaneous every 12 hours. Begin enoxaparin 115 mg subcutaneously (under the skin) every 12 hours, the morning of 01-25-2024. Last dose of enoxaparin to be taken no later than 8am in the morning (otherwise hold the dose) of 01-27-2024 7 mL 4 01/15/20 24 Discontinue d(*Medicati on adjustment) Active Problems Problem Noted Date Diagnosed Date Ascending aorta dilation 07/02/2023 Overview: US June 2023: 2.8 cm. Repeat imaging 5 years. Obesity, morbid 03/07/2023 Anticoagulation monitoring, INR range 2-3 2019 Right atrial thrombus 10/08/2019 Edema of lower extremity 11/21/2018 Fatigue 11/21/2018 Cardiomyopathy 07/10/2018 H/O bacterial endocarditis 06/21/2018 Adenomatous colon polyp 01/01/2018 Overview: Colonoscopy 12/2017 polyps, repeat in 3 years Polyp of colon 12/31/2017 Melena 12/10/2017 Hypertensive urgency 10/16/2017 Mixed hyperlipidemia 03/19/2017 Patent foramen ovale 10/09/2016 Hypertension 03/30/2016 Sleep apnea 03/30/2016 Diabetes mellitus, type 2 03/03/2011 Overview: Overview: Diabetes mellitus type II Resolved Problems Problem Noted Date Diagnosed Date Resolved Date Acute bacterial endocarditis 06/26/2019 12/05/2023 Anticoagulant long-term use 07/01/2018 08/07/2023 Obesity 03/19/2017 08/07/2023 Encounters Date Type Department Care Team Description 01/16/2024 Telephone [facility] [address] [place] [address] Opal Richards, DO GI update 01/15/2024 Telephone [facility] [address] [place] [address] Opal Richards, DO Anticoagulation (BPA-Lovenox) 01/15/2024 Telephone [facility] [address] [place] [address] Opal Richards, DO Medication Management (enoxaparin (LOVENOX) 100 mg/mL injection) 01/15/2024 Telephone [facility] [address] [facility] [address] Opal Richards, Medication Management (enoxaparin (LOVENOX) 100 mg/mL injection) 01/15/2024 Orders Only [facility] [address] [facility] [address] Opal Richards, DO <No scans attached> 01/15/2024 Telephone [facility] [address] [place] [address] Opal Richards, Anticoagulation (BPA- LOVENOX) 01/15/2024 Telephone [facility] [address] [place] [address] Opal Richards, Results 01/14/2024 10:25 AM CDT Preop Visit [address] [address] Opal Richards, Pre-Op Exam (Pre op, [facility], dr. lopez 01/27) 01/14/2024 Anticoagulation (warfarin) [address] [address] 1, [facility] Anticoagulation 01/14/[address] [address] Opal Richards, Follow Up 01/14/[address] [address] Opal Richards, Results 01/14/2024 Travel 01/04/2024 Orders Only [address] [address] Opal Richards, DO <No scans attached> 01/03/2024 11:00 AM CDT Orders Only [address] [address] Lab, [facility] Lab 01/03/2024 Anticoagulation (warfarin) [facility] [address] [facility] [address] [facility] 01/03/2024 Travel 12/20/2023 2:15 PM CDT Orders Only [facility] [address] [facility] [address] [facility], [place] [facility] 12/20/2023 Anticoagulation (warfarin) [facility] [address] [facility] [address] 1, [facility] Anticoagulation 12/20/2023 Travel 12/13/2023 11:00 AM CDT Orders Only [facility] [address] [facility] [address] Lab, [place] [facility] 12/13/2023 Anticoagulation (warfarin) [facility] [address] [facility] [address] 1, [facility] Anticoagulation 12/13/2023 Travel 12/06/2023 Telephone [facility] [address] [facility] [address] Opal Richards, DO Medication Management (warfarin (COUMADIN) 3 mg tablet) 12/05/2023 9:35 AM CDT Office Visit [facility] [address] [facility] [address] Opal Richards, DO Diabetes 12/05/2023 9:15 AM CDT Orders Only [facility] [address] [facility] [address] Lab, [place] [facility] 12/05/2023 Anticoagulation (warfarin) [facility] [address] [facility] [address] 1, [facility] Anticoagulation 12/05/2023 Travel 11/28/2023 Telephone [facility] [address] [facility] [address] Opal Richards, Diabetes 11/07/2023 Refill [facility] [address] [place] [address] Opal Richards, DO Refill Request (LANTUS SOLOSTAR 100UNIT/ML) 10/31/2023 9:00 AM PROPERTY MANAGEMENT ASSISTANT Orders Only [facility] [address] [place] [address] Lab, [place] [facility] 10/31/2023 Anticoagulation (warfarin) [facility] [address] [place] [address] 1, [facility] Anticoagulation 10/31/2023 Travel 10/30/2023 Telephone [facility] [address] [place] [address] Demetrio Lopez MD Appointment 10/30/2023 Telephone [facility] [address] [place] [address] Opal Richards, DO Anticoagulation (INR OVERDUE REMINDER #3) 10/25/2023 Telephone [facility] Pres[facility] Assistance [facility] [employer] [address] [place] [address] [id number] [place] [address] Zenaida Mcfadden, PharmD Medication Management ([facility] PRESCRIPTION ASSISTANCE DEPARTMENT- VICTOZA and pen needles/) from Last 3 Months Immunizations Name Administration Dates Next Due AMB Influenza, IIV4 PF (=>6 mos Flulaval,Fluzone Fluarix)(Flu Clinic Only) 06/15/2020 COVID-19 vaccine (Moderna 100mcg/0.5mL) PF, MDV 12/27/2021,11/03/2020,10/06/2020 COVID-19 vaccine (Pfizer-Bio NTech 30mcg/0.3mL) 12YO+ BIVALENT PF, MDV 07/03/2022 Influenza RIV4 (Age 18+ Year s) PRESERV FREE 07/22/2019 Influenza Virus, Unspecified 10/02/2016, 09/28/2016,05/26/2015,2012,06/24/2010 Influenza, High-dose Inactivated 10/02/2016 Influenza, IIV4 07/03/2022, 8,06/26/2017,2016 Influenza, IIV4 (=>6mos) MDV 07/04/2021,05/26/20 15 Pneumococcal Conj 20-valent (Prevnar 20) 04/23/2023 Pneumococcal Poly,23-Valent (Pneumovax) 03/15/2011 Pneumococcal conj 13-Valent (Prevnar 13) 04/07/2016 Td (Age >=7 Years) 12/20/2007 Td, Preservative Free (age > = 7 Years) 12/20/2007 Tdap 03/19/2017 Zoster (Shingrix-RZV, recombinant) 07/03/2022, Social History Tobacco Use Types Packs/Day Years Used Date Smoking Tobacco: Former Cigars Smokeless Tobacco: Never Tobacco Cessation:Counseling Given: No Comments:used to smoke a couple of cigars per week Alcohol Use Standard Drinks/Week Comments Yes 0 (1 standard drink = 0.6 oz pur e alcohol) less than 2 per week PHQ-2 Answer Date Recorded PHQ-2 TOTAL SCORE 1 04/23/2023 Social Connections Answer Date Recorded Frequency of Communication with Friends and Fami ly 0 06/21/2023 Financial Resource Strain Answer Date R ecorded Difficulty of Paying Living Expenses 3 06/21/2023 Difficulty of Paying Living Expenses Not on file 06/21/2023 Food Insecurity Answer Date Recorded Worried About Running Out of Food in the Last Ye ar 1 06/21/2023 Transportation Needs Answer Date Record ed Lack of Transportation (Medical) 1 06/21/2023 Housing Stability Answer Date Recorded Unable to Pay for Housing in the Last Year 1 06/21/2023 Sex and Gender Information Value Date Recorded Sex Assigned at Not on file Gender Identity Not on file Sexual Orientation Not on file Obstetrics History Last Filed Vital Signs Vital Sign Reading Time Taken Comments Blood Pressure 116/79 01/14/2024 10:50 AM CDT Pulse 98 01/14/2024 10:50 AM CDT Temperature 36.3 ??C (97.3 ??F) 01/14/2024 11:37 AM C DT Respiratory Rate - - Oxygen Saturation 98% 01/14/2024 10:50 AM CDT Inhaled Oxygen Concentration - - Weight 113.9 kg (251 lb) 01/14/2024 10:50 AM CDT Height 175.5 cm (5' 9.09) 01/14/2024 10:50 AM C DT Body Mass Index 36.97 01/14/2024 10:50 AM CDT Plan of Treatment Upcoming Encounters Date Type Department Care Team (Late st Contact Info) Description 01/18/2024 10:30 AM CDT Ancillary Procedure [facility] [address] [place] [address] 01/22/2024 1:45 PM CDT Orders Only [facility] [address] [place] [address] [place] 01/22/2024 2:05 PM CDT Office Visit [facility] [address] [place] [address] Arben Sheets DO [address] [place] [address] 01/28/2024 6:30 AM CDT Procedure Only [facility] at [facility] [address] [place] [address] Demetrio Lopez MD [address] [place] [address] Health Maintenance Due Date Last Done Comments Colonoscopy through age 75 12/31/2020 12/31/2017, COVID-19 vaccine series ( season) 2023 07/03/2022, 12/27/2021, 11/03/2020, Additional history exists Medicare Wellness for age 65+ 04/23/2024 04/23/2023 Depression screening for age 12+ 04/27/2024 04/27/2023, 04/24/2023, 04/23/2023, Additional history exists Influenza for age 65+ 05/11/2024 07/03/2022 , 07/04/2021, 06/15/2020, Additional history exists BMI (ht and wt on same day) for age 18+ 01/13/2025 01/14/2024, 04/23/2023, 03/07/2023, Additional history exists Tetanus booster 03/19/2027 03/19/2017, 12/09, 12/20/2007 Lipids for age 45-75 06/19/2028 06/19/2023, 06/19/2023, 03/07/2023, Additional history exists Tdap Completed 03/19/2017 Hepatitis C screening for ag e 18-79 Completed 02/27/2020 Zoster (shingles) series for age 50+ Completed 07/03/2022, 02/22/2022 Pneumococcal series for age 65+ Completed 04/23/2023, 04/07/2016, 03/15/2011 AAA screening age 65-74 Completed 07/02/2023 Procedures Procedure Name Priority Date/Time Associated Diagnosis Comments HEPATIC FUNCTION PANEL Add On 01/14/2024 11:52 AM CDT Abdominal pain, RLQ (right lower quadrant) C-REACTIVE PROTEIN Add On 01/14/2024 11 :52 AM CDT Abdominal pain, RLQ (right lower quadrant) CBC W PLT NO DIFF Routine 01/14/2024 11: 52 AM CDT Pre-op examination BASIC METABOLIC PANEL Add On 01/14/2024 10:40 AM CDT Pre-op examination MAGNESIUM Add On 01/14/2024 10:40 AM CDT Pre-op examination POTASSIUM Routine 01/14/2024 10:40 AM CDT Pre-op examination CREATININE Routine 01/14/2024 10:40 AM CDT Pre-op examination PROTIME-INR STAT 01/14/2024 10:40 AM CDT Right atrial thrombus Patent foramen ovale Anticoagulation monitoring, INR range 2-3 FERRITIN Add On 01/03/2024 11:04 AM CDT Anemia, unspecified type IRON PLUS IRON BINDING CAP Add On 01/03/2024 11:04 AM CDT Anemia, unspecified type CREATININE STAT 01/03/2024 11:04 AM CDT Right atrial thrombus Patent foramen ovale Anticoagulation monitoring, INR range 2-3 CBC W PLT NO DIFF STAT 01/03/2024 11: 04 AM CDT Right atrial thrombus Patent foramen ovale Anticoagulation monitoring, INR range 2-3 PROTIME-INR STAT 01/03/2024 11:04 AM CDT Right atrial thrombus Patent foramen ovale Anticoagulation monitoring, INR range 2-3 INR,POCT Routine 12/20/2023 2:25 PM CDT Right atrial thrombus Patent foramen ovale Anticoagulation monitoring, INR range 2-3 INR,POCT Routine 12/13/2023 11:11 AM CDT Right atrial thrombus Patent foramen ovale Anticoagulation monitoring, INR range 2-3 INR,POCT Routine 12/05/2023 9:22 AM CDT Right atrial thrombus Patent foramen ovale Anticoagulation monitoring, INR range 2-3 HEMOGLOBIN A1C Routine 12/05/2023 9:20 AM CDT Uncontrolled type 2 diabetes mellitus with hyperglycemia (HC) INR,POCT Routine 10/31/2023 9:04 AM PROPERTY MANAGEMENT ASSISTANT Right atrial thrombus Patent foramen ovale Anticoagulation monitoring, INR range 2-3 US ABD AORTA SCREENING Routine 07/02/2023 9:12 AM CDT Screening for AAA (aortic abdominal aneurysm) LIPID PANEL W REFLEX MEASURED LDL Routine 06/19/2023 11:13 AM CDT Hyperlipidemia, unspecified hyperlipidemia type ANTI HCV Routine 02/27/2020 2:02 PM CDT Encounter for hepatitis C screening test for low risk patient SCAN-COLONOSCOPY 12/31/2017 12:0 0 AM CDT from Last 3 Months or Most Recently Relevant to Health Maintenance Results * (ABNORMAL) CBC W PLT NO DIFF (01/14/2024 11:52 AM CDT) Only the most recent of2 resultswithin the time period is included. WHITE BLOOD COUNT 14.1(H) 4.5 - 11.0 thou/cu mm 01/14/2024 11:57 AM CDT [facility] RED BLOOD COUNT 4.71 4.30 - 5.90 mil/cu mm 01/14/2024 11:57 AM CDT [facility] HEMOGLOBIN 13.5 13.5 - 17.5 g/dL 01/14/2024 11:57 AM CDT [facility] HEMATOCRIT 39.4 37.0 - 53.0 % 01/14/2024 11:57 AM CDT [facility] MCV 84 80 - 100 fL 01/14/2024 11:57 AM CDT [facility] MCH 28.7 26.0 - 34.0 pg 01/14/2024 11:57 AM CDT [facility] MCHC 34.3 32.0 - 36.0 g/dL 01/14/2024 11:57 AM CDT [facility] RDW 14.5 11.5 - 15.5 % 01/14/2024 11:57 AM CDT [facility] PLATELET COUNT 344 140 - 440 thou/cu mm 01/14/2024 11:57 AM CDT [facility] MPV 10.3 6.5 - 11.0 fL 01/14/2024 11:57 AM CDT [facility] Blood BLOOD SPECIMEN / Unknown Butterfly / Unknown 01/14/2024 11:52 AM CDT 01/14/2024 11:53 AM CDT Opal Richards DO HEMATOLOGY [facility] [address] [place] [address], * (ABNORMAL) C-REACTIVE PROTEIN (01/14/2024 11:52 AM CDT) Pathologist [facility] C-REACTIVE PROTEIN 3.5(H) <0.5 mg/dL 01/14/2024 10:44 PM CDT [facility] Blood BLOOD SPECIMEN / Unknown Butterfly / Unknown 01/14/2024 11:52 AM CDT 01/14/2024 11:53 AM CDT Opal Richards DO CHEMISTRY Performing Organization Address City/[facility]/ZIP Co de Phone Number [facility] [address] [place] [address], * (ABNORMAL) LIVER PANEL (HEPATIC FUNCTION PANEL) (01/14/2024 11:52 AM CDT) ALBUMIN 4.4 4.0 - 4.9 g/dL 01/14/2024 10:44 PM CDT [facility] PROTEIN,TOTAL 8.7(H) 6.0 - 8.0 g/dL 01/14/2024 10:44 PM CDT [facility] BILIRUBIN,TOTAL 0.4 0.0 - 1.2 mg/dL 01/14/2024 10:44 PM CDT [facility] BILIRUBIN,DIRECT <0.2 0.0 - 0.3 mg/dL 01/14/2024 10:44 PM CDT [facility] BILIRUBIN,INDIRE CT 01/14/2024 10:44 PM CDT [facility] Comment:Unable to calculate, Direct Bili <0.2 ALK PHOSPHATASE 76 40 - 129 IU/L 01/14/2024 10:44 PM CDT [facility] ALT (SGPT) 31 10 - 50 IU/L 01/14/2024 10:44 PM CDT [facility] AST (SGOT) 35 10 - 50 IU/L 01/14/2024 10:44 PM CDT [facility] Blood BLOOD SPECIMEN / Unknown Butterfly / Unknown 01/14/2024 11:52 AM CDT 01/14/2024 11:53 AM CDT Opal Richards DO CHEMISTRY [facility] [address] [place] [address], * (ABNORMAL) POTASSIUM (01/14/2024 10:40 AM CDT) POTASSIUM 5.3(H) 3.5 - 5.1 mmol/L 01/14/2024 6:22 PM CDT [facility] Blood BLOOD SPECIMEN / Unknown Venipuncture / Unknown 01/14/2024 10:40 AM CDT 01/14/2024 10:40 AM CDT Opal Richards DO CHEMISTRY Performing Organization Address [facility] Co de Phone Number [facility] [address] * (ABNORMAL) CREATININE (01/14/2024 10:40 AM CDT) Only the most recent of2 resultswithin the time period is included. eGFR 49(L) >90 mL/min/1.7 3m2 01/14/2024 6:22 PM CDT [facility] Comment:As of 2021, eG FR is calculated by the CKD-EPI creatinine equation without race adjustment. ??eGFR can be influenced by muscle mass, exercise, and diet. ??The reported eGFR is an estimation only and is only applicable if the renal function is stable. CREATININE 1.54(H) 0.70 - 1.20 mg/dL 01/14/2024 6:22 PM CDT [facility] Blood BLOOD SPECIMEN / Unknown Venipuncture / Unknown 01/14/2024 10:40 AM CDT 01/14/2024 10:40 AM CDT Opal Richards DO CHEMISTRY Performing Organization Address [facility]/ZIP Co de Phone Number [facility] [address] [place] [address], * (ABNORMAL) PROTIME-INR (01/14/2024 10:40 AM CDT) Only the most recent of2 resultswithin the time period is included. INR 3.3(H) <1.3 01/14/2024 3:26 PM CDT [facility] PROTIME 35.7(H) 10.3 - 12.3 sec 01/14/2024 3:26 PM CDT [facility] Blood BLOOD SPECIMEN / Unknown Venipuncture / Unknown 01/14/2024 10:40 AM CDT 01/14/2024 10:40 AM CDT Narrative [facility] - 01/14/2024 3:26 PM CDT ?Therapeutic Range 2.0-3.0 for most anticoagulated patients 2.5-3.5 or 4.0 for high risk patients The INR is only used for patients on stable oral anticoagulant therapy. It makes no significant contribution to the diagnosis or treatment of patients whose Protime is prolonged for other reasons. INR results are increased when heparin levels exceed 1.0 U/mL, which corresponds to an aPTT >125 seconds if the patient is on UFH. Opal Richards DO HEMATOLOGY Performing Organization Address [facility] Co de Phone Number [facility] [address] [place] [address], * MAGNESIUM (01/14/2024 10:40 AM CDT) [facility] MAGNESIUM 1.6 1.6 - 2.4 mg/dL 01/14/2024 6:22 PM CDT [facility] Blood BLOOD SPECIMEN / Unknown Venipuncture / Unknown 01/14/2024 10:40 AM CDT 01/14/2024 10:40 AM CDT Opal Richards DO CHEMISTRY Performing Organization Address [facility]/ZIP Co de Phone Number [facility] [address] [place] [address], * (ABNORMAL) BASIC METABOLIC PANEL (01/14/2024 10:40 AM CDT) Pathologist [facility] SODIUM 133(L) 136 - 145 mmol/L 01/14/2024 6:22 PM CDT [facility] POTASSIUM 5.3(H) 3.5 - 5.1 mmol/L 01/14/2024 6:22 PM T [facility] CHLORIDE 99 98 - 107 mmol/L 01/14/2024 6:22 PM T [facility] CO2,TOTAL 18(L) 22 - 29 mmol/L 01/14/2024 6:22 PM T [facility] ANION GAP 16 5 - 18 01/14/2024 6:22 PM T [facility] GLUCOSE 202(H) 70 - 99 mg/dL 01/14/2024 6:22 PM T [facility] CALCIUM 9.7 8.8 - 10.2 mg/dL 01/14/2024 6:22 PM [facility] BUN 27(H) 8 - 23 mg/dL 01/14/2024 6:22 PM [facility] CREATININE 1.54(H) 0.70 - 1.20 mg/dL 01/14/2024 6:22 PM [facility] BUN/CREAT RATIO 18 10 - 20 6:22 PM [facility] eGFR 49(L) >90 mL/min/1.7 3m2 01/14/2024 6:22 PM [facility] Comment:As of 2021, eG FR is calculated by the CKD-EPI creatinine equation without race adjustment. ??eGFR can be influenced by muscle mass, exercise, and diet. ??The reported eGFR is an estimation only and is only applicable if the renal function is stable. Blood BLOOD SPECIMEN / Unknown Venipuncture / Unknown 01/14/2024 10:40 AM CDT 01/14/2024 10:40 AM CDT Opal Richards DO CHEMISTRY [facility] [address] [place] [address], [place] * (ABNORMAL) IRON PLUS IRON BINDING CAP (01/03/2024 11:04 AM CDT) IRON 48(L) 61 - 157 ug/dL 01/03/2024 10:03 PM CDT [facility] UIBC (UNSATURATED) 302 112 - 347 ug/dL 01/03/2024 10:03 PM CDT [facility] IRON BINDING CAPACITY 350 250 - 400 ug/dL 01/03/2024 10:03 PM CDT [facility] IRON,% SATURATION 14 14 - 50 % 01/03/2024 10:03 PM CDT [facility] Blood BLOOD SPECIMEN / Unknown Butterfly / Unknown 01/03/2024 11:04 AM CDT 01/03/2024 11:04 AM CDT Opal Richards CHEMISTRY Performing Organization Address City/[facility]/ZIP Co de Phone Number [facility] [address] [address], [place] * FERRITIN (01/03/2024 11:04 AM CDT) FERRITIN 311.0 30.0 - 400.0 ng/mL 01/03/2024 10:03 PM CDT [facility] Blood BLOOD SPECIMEN / Unknown Butterfly / Unknown 01/03/2024 11:04 AM CDT 01/03/2024 11:04 AM CDT Opal Richards DO CHEMISTRY Performing Organization Address City/[facility]/ZIP Co de Phone Number [facility] [address] [address], [place] * (ABNORMAL) INR,POCT (12/20/2023 2:25 PM CDT) Only the most recent of4 resultswithin the time period is included. INR 2.2(H) <1.3 12/20/2023 2:28 PM CDT [facility] Blood BLOOD SPECIMEN / Unknown 12/20/2023 2:25 PM CDT 12/20/2023 2:28 PM CDT Narrative [facility] - 12/20/2023 2:28 PM CDT ?Therapeutic Range 2.0-3.0 for most anticoagulated patients 2.5-3.5 or 4.0 for high risk patients Opal Richards DO LABORATORY Performing Organization Address [facility] Co de Phone Number [facility] [address] [place] [address], * (ABNORMAL) HEMOGLOBIN A1C MONITORING (POCT) (12/05/2023 9:20 AM CDT) HEMOGLOBIN A1C MONITORING (POCT) 12.5(H) <=6.4 % 12/05/2023 9:46 AM CDT [facility] Blood BLOOD SPECIMEN / Unknown Capillary / Unknown 12/05/2023 9:20 AM CDT 12/05/2023 9:24 AM CDT Narrative [facility] - 12/05/2023 9:46 AM CDT ? (<=6.9%) ? Indicates good control ? (7.0% to 7.9%) ? Indicates fair control ? (>=8.0%) ? Indicates poor control ?? NOTE: ??These thresholds are guidelines and ?individual targets may vary. Falsely low levels may be seen with: Recent Transfusion, Recent Significant Blood Loss, Hemolytic Diseases, or Falsely elevated levels may be seen with: Untreated Anemias, Splenectomy ? Opal Richards DO CHEMISTRY Performing Organization Address [facility] Co de Phone Number [facility] [address] [place] [address], [place] [phone] * US ABD AORTA SCREENING [[id number]] (07/02/2023 9:12 AM CDT) Anatomical Region Laterality Modality Abdomen, AORTA Ultrasound 07/02/2023 10:0 6 AM CDT Narrative 07/02/2023 10:06 AM CDT For Patients: ??As a result of the Cures Act, medical imaging exams and procedure reports are released immediately into your electronic medical record. ??You may view this report before your referring provider. ??If you have questions, please contact your health care provider. Examination: US abdominal aorta Indication: Abdominal aortic aneurysm screening. Technique: Young scale and color Doppler images of the aorta and common iliac arteries are obtained. Comparison: None Findings: Proximal aorta: 2.8 x 2.8 cm Mid aorta: 2.4 x 2.3 cm Distal aorta: 2.4 x 1.9 cm Right common iliac artery: 1.4 x 1.6 cm Left common iliac artery: 1.4 x 1.4 cm Recommended imaging interval for ectatic aorta: 2.5-2.9 cm: 5 years Impression: No abdominal aortic aneurysm. Dictated by Breezy Hooper MD @ Jul 02 2023 10:06AM (Electronically Signed) ?? Procedure Note Breezy Hooper MD - 07/02/2023 For Patients: As a result of the Cures Act, medical imagingexams and procedure reports are released immediately into your electronicmedical record. You may view this report before your referring provider.If you have questions, please contact your health care provider. Examination: US abdominal aorta Indication: Abdominal aortic aneurysm screening. Technique: Young scale and color Doppler images of the aorta and common iliac arteriesare obtained. Comparison: None Findings: Proximal aorta: 2.8 x 2.8 cm Mid aorta: 2.4 x 2.3 cm Distal aorta: 2.4 x 1.9 cm Right common iliac artery: 1.4 x 1.6 cm Left common iliac artery: 1.4 x 1.4 cm Recommended imaging interval for ectatic aorta: 2.5-2.9 cm: 5 years Impression: No abdominal aortic aneurysm. Dictated by Breezy Hooper MD @ Jul 02 2023 10:06AM (Electronically Signed) Radha Prieto MD [place] * (ABNORMAL) LIPID PANEL W REFLEX MEASURED LDL (06/19/2023 11:13 AM CDT) CHOLESTEROL,TOTAL 159 100 - 199 mg/dL 06/20/2023 7:00 AM CDT [facility] Comment: Cholesterol, Total Reference Ranges Desirable <200 mg/dL Borderline 200-239 mg/dL High >=240 mg/dL TRIGLYCERIDES 530(H) <150 mg/dL 06/20/2023 7:00 AM CDT [facility] HDL CHOLESTEROL 30(L) >40 mg/dL 7:00 AM CDT [facility] NON-HDL CHOLESTEROL 129 <145 mg/dl 06/20/2023 7:00 AM CDT [facility] CHOL/HDL RATIO 5.30(H) <4.50 06/20/2023 7:00 AM CDT [facility] LDL CHOLESTEROL 3 7:00 AM T [facility] Comment:Invalid LDL when Tri g >400. VLDL CHOLESTEROL COMMENT 06/20/2023 7:00 AM CDT [facility] Comment:Unable to calculate VLDL. PROVIDER ORDERED STATUS RANDOM 06/20/2023 7:00 AM T [facility] Blood BLOOD SPECIMEN / Unknown Venipuncture / Unknown 06/19/2023 11:13 AM CDT 06/19/2023 11:15 AM CDT Opal Rihcards DO CHEMISTRY [facility] [address] [place] [address], * ANTI HCV (02/27/2020 2:02 PM CDT) HEPATITIS C ANTIBODY Non-React gennaro Non-React gennaro 02/27/2020 8:36 PM CDT [facility] Comment:Antibodies to HCV no t detected; does not exclude the possibility of exposure to HCV. Blood BLOOD SPECIMEN / Unknown Butterfly / Unknown 02/27/2020 2:02 PM CDT 02/27/2020 2:03 PM CDT Radha Prieto MD [facility] [address] [place] [address], [place] * SCAN-COLONOSCOPY (12/31/2017 12:00 AM CDT) Scanner OTHER from Last 3 Months or Most Recently Relevant to Health Maintenance Care Teams Attendant Sales Relationship Specialty Start Date End Date Opal Richards DO [address] [place] [address] PCP - General Family Practice 06/21/23
[2024-01-16 23:40] LABS: Prothrombin Time 32.6 Seconds
[2024-01-16 23:46] LABS: Chloride* 107 mmol/L (96-114); Potassium* 5.4 mmol/L (3.6-5.1); Sodium* 136 mmol/L (135-149)
[2024-01-16 23:47] LABS: Albumin* 4.5 g/dL (3.3-5.0)
[2024-01-16 23:49] LABS: Anion Gap 10 mEq/L (7-15); Blood Urea Nitrogen* 28 mg/dL (7-30); Carbon Dioxide* 19 mmol/L (20-32); Creatinine* 1.4 mg/dL (0.5-1.5); Estimated Glomerular Filt Rate 55 ml/min
[2024-01-16 23:50] LABS: Alkaline Phosphatase* 76 U/L (40-150); Aspartate Amino Transferase* 25 U/L (12-35); Bilirubin Direct* 0.2 mg/dL (0.0-0.5); Bilirubin Total* 0.5 mg/dL (0.1-1.5); Calcium* 10.5 mg/dL (8.4-10.6); Glucose* 161 mg/dL (60-115); Total Protein* 9.5 g/dL (6.0-8.3)
[2024-01-16 23:51] LABS: Alanine Aminotransferase* 27 U/L (4-50)
[2024-01-16 23:53] LABS: C Reactive Protein* 3.5 mg/dL (0.5-1.0)
[2024-01-17] VITALS (8 sets, daily range): BP systolic 98–123; BP diastolic 54–79; PULSE 73–83; RESP 16–18; TEMP 36.9; O2SAT 90–99
[2024-01-17] MEDS: 0.9 % SODIUM CHLORIDE 500 ML 500 ML IV
[2024-01-17] MEDS: lidocaine HCL 2 % JELLY (TOP) STERILE 6 ML UR (00:45)
[2024-01-17] MEDS: MORPHINE 4 MG/ML INJ IVP (01:16)
[2024-01-17] MEDS: HYOSCYAMINE SULFATE 0.125 MG TAB 0.25 MG SUBLINGUAL (01:36)
[2024-01-17 01:47] LABS: Appearance Urine Cloudy (Clear); Bilirubin Urine Negative (Negative); Blood Urine 1+ (Negative); Color Urine Yellow (Yellow); Glucose Urine Negative (Negative); Ketones Urine Negative (Negative); Leukocyte Esterase Urine 1+ (Negative); Nitrite Urine Negative (Negative); Protein Urine Negative (Negative); Specific Gravity Urine <= 1.005 (1.000-1.030); Urobilinogen Urine 0.2 (0.2-1.0); pH Urine 5.5 (5.0-8.5)
[2024-01-17 01:54] LABS: Amorphous Sediment Urine Few; Bacteria Urine Moderate; Squamous Epithelial Cell Urine Few (None-Few)
[2024-01-17] MEDS: PIPERACILLIN/TAZOBACTAM 3.375 GM in 0.9 % SODIUM CHLORIDE Mini-bag 100 ML IVPB (02:41)
[2024-01-17] MEDS: 0.9 % SODIUM CHLORIDE 1000 ml 1,000 ML IV (02:41)
[2024-01-17] MEDS: HYDROmorphone 0.5 mg/0.5 ml inj IVP (04:14)
== END 2024-01-17 04:20 | disposition short-term general hospital (02) ==
PROVIDERS: Emergency Provider Family Medicine; PCP Family Medicine
DX: N41.2 Abscess of prostate (principal)
CPT/HCPCS: 36415; 51798; 74177; 80048; 80076; 81001; 82565; 85025; 85610; 86140; 87040; 87086; 87186; 93005; 94761; 96365; 96366; 96375; 99284; 99285; A9270; J1170; J2270; J2543; J3370; J7030; Q9967

== ENCOUNTER 2024-01-17 04:08 | Outpatient (CLI) | payer MEDICARE, SELFPAY ==
--- OUTSIDE RECORDS SUMMARY | 2024-01-18 14:08 | XMS_ITS | Clinical Summary ---
Author Name Unknown Organization [employer] [facility] Address [place], [place] [address] Care Team Providers Care Sales And Marketing Associate Name Role Phone Opal Richards DO Primary Care Provider [phone] Allergies Active Allergy Reactions Criticality Noted Date Comments Iodine Hives 10/08/2019 Medications Medication Sig Dispensed Refills Start Date End Date Status aspirin 325 mg tablet Take 325 mg by mouth. 024 Discontinued( Pharmacist change per medication history (E-cancel not sent)) Vit B Comp & C-Vit E-FA-Kaitlin-Zn 0.4 mg tab Take 1 Tablet by mouth once daily. 024 Discontinued( Pharmacist change per medication history (E-cancel not sent)) Qbmow-5-ESJ-EPA-Fi sh Oil 1,000 mg (120 mg-180 mg) capIndications:Hyp erlipidemia, unspecified hyperlipidemia type Take 1 capsule by mouth once daily. 90 capsule 3 10/08/19 Suspended Additional Information bd insulin pen needle uf mini 31 gauge x 11/23Indications:U ncontrolled type 2 diabetes mellitus with hyperglycemia (HC) TO BE USED WITH VICTOZA ONCE DAILY 100 Each 3 06/01/20 22 024 Discontinued( Pharmacist change per medication history (E-cancel not sent)) Microlet LancetIndications: Uncontrolled type 2 diabetes mellitus with hyperglycemia (HC) USE TO TEST BLOOD GLUCOSE FOUR TIMES A DAY 400 Each 3 06/09/20 22 Suspended Additional Information amLODIPine (NORVASC) 10 mg tabletIndications: Hypertension Take 1 Tablet (10 mg) by mouth once daily. 90 Tablet 3 03/07/20 23 Suspended Additional Information blood-glucose meterIndications:U ncontrolled type 2 diabetes mellitus with hyperglycemia (HC) As directed. Dispense meter, test strips, lancets covered by pt ins. E11.65 NIDDM type II, uncontrolled - Test 4 times/day. Reason: High A1C 1 Each 03/07/20 Suspended Additional Information hydroCHLOROthiazid e (HCTZ) 25 mg tabletIndications: Hypertension Take 2 Tablets (50 mg) by mouth once daily. 180 Tablet 3 03/07/20 Suspended Additional Information lisinopriL (PRINIVIL; ZESTRIL) 40 mg tabletIndications: Hypertension Take 1 Tablet (40 mg) by mouth once daily. 90 Tablet 3 03/07/20 Suspended Additional Information potassium chloride (K-TAB) 20 mEq extended-release tabletIndications: Hypokalemia Take 1 Tablet (20 mEq) by mouth once daily with a meal. 90 Tablet 3 03/07/20 Suspended Additional Information metFORMIN (GLUCOPHAGE XR) 500 mg Extended-Release tabletIndications: Uncontrolled type 2 diabetes mellitus with hyperglycemia (HC) Take 2 Tablets (1,000 mg) by mouth two times daily with meals. 360 Tablet 3 03/08/20 Suspended Additional Information icosapent ethyL (Vascepa) 1 gram capsuleIndications :Hypertriglyceride ellen Take 2 g by mouth two times daily with meals. 400 Capsule 3 03/08/20 024 Discontinued( Pharmacist change per medication history (E-cancel not sent)) spironolactone (ALDACTONE) 50 mg tabletIndications: HTN (hypertension) Take 1 Tablet (50 mg) by mouth every morning. 100 Tablet 3 04/23/20 Suspended Additional Information polyethylene glycol-electrolyte (GOLYTELY) 236-22.74-6.74 -5.86 gram suspensionIndicati ons:Encounter for screening colonoscopy Drink 2 liters the day before the procedure and 2 liters 6 hours prior to procedure. 4000 mL 04/25/20 024 Discontinued( Pharmacist change per medication history (E-cancel not sent)) blood sugar diagnostic (Accu-Chek Guide test strips) stripIndications:U ncontrolled type 2 diabetes mellitus with hyperglycemia (HC) TEST 4 TIMES PER DAY DIRECTED 400 Each 3 05/22/20 Suspended Additional Information [employer] G7 Sensor for continuous blood glucose monitor (CGM)Indications:U ncontrolled type 2 diabetes mellitus with hyperglycemia (HC) To be used to read blood sugars, follow buckle frame shaper directions. 9 Each 3 06/21/20 Suspended Additional Information [employer] G7 Quill Machine Operator for continuous blood glucose monitor (CGM)Indications:U ncontrolled type 2 diabetes mellitus with hyperglycemia (HC) To be used to read blood sugars follow buckle frame shaper directions. 1 Each 06/21/20 Suspended Additional Information enoxaparin (Lovenox) 120 mg/0.8 mL injectionIndicatio ns:Right atrial thrombus,Patent foramen ovale,Anticoagulat ion monitoring, INR range 2-3 Inject 120 mg subcutaneous every 12 hours. 8 mL 1 07/19/20 23 024 Discontinued( *Medication adjustment) acetaminophen (TYLENOL EXTRA STRGTH) 500 mg tablet Take 500-1,000 mg by mouth every 6 hours if needed for Pain. Max acetaminophen dose: 4000mg in 24 hrs. 0 07/19/20 Suspended rosuvastatin (CRESTOR) 20 mg tabletIndications: Hyperlipidemia, unspecified hyperlipidemia type Take 1 Tablet (20 mg) by mouth at bedtime. 90 Tablet 2 08/10/20 Suspended Additional Information metoprolol tartrate (LOPRESSOR) 100 mg tabletIndications: Hypertension Take 1 Tablet (100 mg) by mouth two times daily. 180 Tablet 2 09/13/19 Suspended Additional Information liraglutide (VICTOZA) 0.6 mg/0.1 mL (18 mg/3 mL) subcutaneous pen Inject 1.8 mg subcutaneous once daily. 36 mL 10/25/19 Suspended Additional Information Insulin [place], Disposable, (Novofine 32) 32 gauge x 1/4 To be used once daily with Victoza 200 Each 2 10/25/19 24 Suspended Additional Information Lantus Solostar U-100 Insulin 100 unit/mL (3 mL) penIndications:Unc ontrolled type 2 diabetes mellitus with hyperglycemia (HC) Inject 72 units subcutaneous before bedtime. 90 mL 12/05/19 24 024 Discontinued( *Medication adjustment) warfarin (COUMADIN) 3 mg tabletIndications: Right atrial thrombus,Patent foramen ovale,Anticoagulat ion monitoring, INR range 2-3,Anticoagulant long-term use Take by mouth 4/5: 3 mg; 4/6: 3 mg; 4/8: 6 mg; Otherwise 9 mg every Mon; 6 mg all other days in the evening OR as directed 12/13/19 24 024 Discontinued( Other - add note to specify (E-cancel not sent)) warfarin (COUMADIN) 3 mg tabletIndications: Right atrial thrombus,Patent foramen ovale,Anticoagulat ion monitoring, INR range 2-3,Anticoagulant long-term use Take by mouth 9 mg (3 mg x 3) every Mon; 6 mg (3 mg x 2) all other days in the evening OR as directed 12/20/19 24 024 Discontinued( Other - add note to specify (E-cancel not sent)) ferrous sulfate 325 mg delayed release tabletIndications: Iron deficiency anemia, unspecified iron deficiency anemia type Take 1 Tablet (325 mg) by mouth once daily with a meal. 90 Tablet 01/04/20 Suspended Additional Information Lantus Solostar U-100 Insulin 100 unit/mL (3 mL) penIndications:Unc ontrolled type 2 diabetes mellitus with hyperglycemia (HC) Inject 80 units subcutaneous before bedtime. 90 mL 01/14/20 Suspended Additional Information warfarin (COUMADIN) 3 mg tabletIndications: Right atrial thrombus,Patent foramen ovale,Anticoagulat ion monitoring, INR range 2-3,Anticoagulant long-term use Take by mouth 5/6: 6 mg; 01/22: Hold; 01/23: Hold; 01/24: Hold; 01/25: Hold; 01/26: Hold; Otherwise 9 mg every Mon; 6 mg all other days in the evening OR as directed 01/14/20 Suspended Additional Information Patient taking differently: Take 3 tablets (9 mg) by mouth on Mondays. Take 2 tablets (6 mg) Tuesdays, Wednesdays, , Fridays, Saturdays, and Sundays.Hold starting 01/22-01/26 for colonoscopy OR as directed., Informant: Patient's Recall, Reported on 01/17/2024 enoxaparin (LOVENOX) 100 mg/mL injectionIndicatio ns:Pre-op examination,Right atrial thrombus,Patent foramen ovale,Anticoagulat ion monitoring, INR range 2-3 Inject 100 mg subcutaneous every 12 hours. Begin enoxaparin 100 mg subcutaneously (under the skin) every 12 hours, the morning of 01-25-2024. Last dose of enoxaparin to be taken no later than 8am in the morning (otherwise hold the dose) of 01-27-2024 5 mL 01/25/20 24 024 Discontinued( *Medication adjustment) enoxaparin (LOVENOX) 100 mg/mL injectionIndicatio ns:Pre-op examination,Right atrial thrombus,Patent foramen ovale,Anticoagulat ion monitoring, INR range 2-3 Inject 115 mg subcutaneous every 12 hours. Begin enoxaparin 115 mg subcutaneously (under the skin) every 12 hours, the morning of 01-25-2024. Last dose of enoxaparin to be taken no later than 8am in the morning (otherwise hold the dose) of 01-27-2024 7 mL 01/25/20 24 024 Discontinued( *Medication adjustment) enoxaparin (LOVENOX) 120 mg/0.8 mL injectionIndicatio ns:Pre-op [...] hold the dose) of 01-27-2024 4 mL 01/25/20 Suspended Additional Information aspirin 325 mg tablet Take 325 mg by mouth once daily with a meal. Suspended multivitamins-mine rals-lutein (Multivitamin 50 Plus) tab tablet Take 1 Tablet by mouth once daily. Suspended Active Problems Problem Noted Date Diagnosed Date Prostate abscess 01/17/2024 Type 2 diabetes mellitus wit h stage 2 chronic kidney disease, with long-term current use of insulin 01/17/2024 Ascending aorta dilation 07/02/2023 Overview: US June [...] Encounters Date Type Department Care Team Description 01/18/2024 10:38 AM CDT Anesthesia Event [facility] [address] [place] [address] Pradeep Tai MD 01/17/2024 5:08 AM CDT - Present Hospital Encounter [facility] [address] [place] [address] [facility], MD [address] Ashley Diane, 01/16/2024 Telephone [facility] [address] [place] [address] Opal Richards, DO GI update 01/15/2024 Telephone [facility] [address] [place] [address] Opal Richards, DO Anticoagulation (BPA-Lovenox) 01/15/2024 Telephone [facility] [address] [place] [address] Opal Richards, DO Medication Management (enoxaparin (LOVENOX) 100 mg/mL injection) 01/15/2024 Telephone [facility] [address] [place] [address] Opal Richards, DO Medication Management (enoxaparin (LOVENOX) 100 mg/mL injection) 01/15/2024 Orders Only [facility] [address] [facility] [id number] Opal Richards, DO <No scans attached> 01/15/2024 Telephone [facility] [address] Opal Richards, DO Anticoagulation (BPA- LOVENOX) 01/15/2024 Telephone [facility] [address] [facility] [address] Opal Richards, DO Results 01/14/2024 10:25 AM CDT [facility] [address] Opal Richards, DO Pre-Op Exam (Pre op, [facility], dr. lopez 01/27) 01/14/2024 Anticoagulation (warfarin) [address] [place] [address] 1, [facility] Anticoagulation 01/14/2024 Telephone [facility] [address] [facility] [place] [address] Opal Richards, DO Follow Up 01/14/2024 Telephone [facility] [address] Opal Richards, DO Results 01/14/2024 Travel 01/04/2024 Orders Only [facility] [place] [address] Opal Richards, DO <No scans attached> 01/03/2024 11:00 AM CDT Orders [place] [address] [place] [address] Lab, [facility] Lab 01/03/2024 Anticoagulation (warfarin) [address] [place] [address] 1, [facility] Anticoagulation 01/03/2024 Travel 12/20/2023 2:15 PM CDT Orders Only [facility] Mary [facility] [place] [address] Lab, [place] [facility] 12/20/2023 Anticoagulation (warfarin) [facility] [address] [facility] [address] [facility], [place] [facility] 12/20/2023 Travel 12/13/2023 11:00 AM CDT Orders Only [facility] [address] [facility] [address] Lab, [place] [facility] 12/13/2023 Anticoagulation (warfarin) [facility] [address] [facility] [place] [address] 1, [place] [facility] Anticoagulation 12/13/2023 Travel 12/06/2023 Telephone [facility] [address] [facility] [place] [address] Opal Richards, Medication Management (warfarin (COUMADIN) 3 mg tablet) 12/05/2023 9:35 AM CDT Office Visit [facility] [address] [facility] [place] [address] Opal Richards, Diabetes 12/05/2023 9:15 AM CDT Orders Only [facility] [address] [facility] [place] [address] Lab, [place] [facility] 12/05/2023 Anticoagulation (warfarin) [facility] [address] [facility] [address] 1, [place] [facility] Anticoagulation 12/05/2023 Travel 11/28/2023 Telephone [facility] [address] [facility] [address] Opal Richards DO Diabetes 11/07/2023 Refill [facility] [address] [facility] [place] [address] Opal Richards, Refill Request (LANTUS SOLOSTAR 100UNIT/ML) 10/31/2023 9:00 AM 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 Orders Only [facility] [address] [facility] [address] [facility], [place] [facility] 10/31/2023 Anticoagulation (warfarin) [facility] [address] [facility] [place] [address] 1, [place] [facility] Anticoagulation 10/31/2023 Travel 10/30/2023 Telephone [facility] [address] [place] [address] Demetrio Lopez MD Appointment 10/30/2023 Telephone [facility] [address] [place] [address] Opal Richards, DO Anticoagulation (INR OVERDUE REMINDER #3) 10/25/2023 Telephone [facility] [employer] Prescription Assistance Program [employer] [address] [place] [address] [id number] [place] [address] Zenaida Mcfadden, PharmD Medication Management ([facility]- VICTOZA and pen needles/) [...] Sign Reading Time Taken Comments Blood Pressure 120/71 01/18/2024 9:17 AM CDT Pulse 85 01/18/2024 9:17 AM CDT Temperature 36 ??C (96.8 ??F) 01/18/2024 9:17 AM CDT Respiratory Rate 18 01/18/2024 9:17 AM CDT Oxygen Saturation 94% 01/18/2024 9:17 AM CDT Inhaled Oxygen Concentration - - Weight 112.9 kg (248 lb 14.4 oz) 01/18/2024 6:39 AM CDT Height 170.2 cm (5' 7) 01/18/2024 9:17 AM CDT Body Mass Index 38.98 01/18/2024 6:39 AM CDT Plan of Treatment Upcoming Encounters Date Type Department Care Team (Late st Contact Info) Description 01/22/2024 1:45 PM CDT Orders Only [facility] [address] [place] [address] [place] 01/22/2024 2:05 PM CDT Office Visit [facility] [address] [place] [address] Arben Sheets DO [address] [place] [address] 01/28/2024 6:30 AM CDT Procedure Only [facility] at [facility] [address] [place] [phone] Demetrio Lopez MD [address] [place] [address] Health Maintenance Due Date Last Done Comments [...] AAA screening age 65-74 Completed 07/02/2023 Procedures The patient is currently admitted. The information in this section might not be complete until the patient is discharged. Procedure Name Priority Date/Time Associated Diagnosis Comments GLUCOSE METER Timed 01/18/2024 11:14 AM CDT GLUCOSE METER Timed 01/18/2024 8:50 AM CDT BASIC METABOLIC PANEL Early AM 01/18/2024 6:16 AM CDT CBC W PLT NO DIFF Early AM 01/18/2024 6:1 6 AM CDT PROTIME-INR Early AM 01/18/2024 6:16 AM CDT GLUCOSE METER Timed 01/17/2024 10:50 PM CDT MRSA/SA PCR Today 01/17/2024 7:28 PM CDT GLUCOSE METER Timed 01/17/2024 5:45 PM CDT WHITE BLOOD COUNT MARIANELA 01/17/2024 1:1 8 PM CDT HEMOGLOBIN STAT 01/17/2024 1:18 PM CDT GLUCOSE METER Timed 01/17/2024 11:34 AM CDT BASIC METABOLIC PANEL MARIANELA 01/17/2024 11:19 AM CDT PROTIME-INR STAT 01/17/2024 11:19 AM CDT GLUCOSE METER Timed 01/17/2024 9:24 AM CDT GLUCOSE METER Timed 01/17/2024 6:48 AM CDT HEPATIC FUNCTION PANEL Add On 01/14/2024 11:52 [...] hyperglycemia (HC) INR,POCT Routine 10/31/2023 9:04 AM 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 GLUCOSE METER 173(H) 65 - 100 mg/dL 01/18/2024 11:15 AM CDT [facility] Blood BLOOD SPECIMEN / Unknown 01/18/2024 11:14 AM CDT 01/18/2024 11:15 AM CDT Michelle Turner DO [facility] [address] [place] [address], * (ABNORMAL) CBC no diff AM (01/18/2024 6:16 AM CDT) Only the most recent of3 resultswithin the time period is included. WHITE BLOOD COUNT 11.2(H) 4.5 - 11.0 thou/cu mm 01/18/2024 6:47 AM CDT [facility] RED BLOOD COUNT 3.91(L) 4.30 - 5.90 mil/cu mm 01/18/2024 6:47 AM CDT [facility] HEMOGLOBIN 11.0(L) 13.5 - 17.5 g/dL 01/18/2024 6:47 AM CDT [facility] HEMATOCRIT 33.5(L) 37.0 - 53.0 % 01/18/2024 6:47 AM CDT [facility] MCV 86 80 - 100 fL 01/18/2024 6:47 AM CDT [facility] MCH 28.1 26.0 - 34.0 pg 01/18/2024 6:47 AM CDT [facility] MCHC 32.8 32.0 - 36.0 g/dL 01/18/2024 6:47 AM CDT [facility] RDW 13.7 11.5 - 15.5 % 01/18/2024 6:47 AM CDT [facility] PLATELET COUNT 228 140 - 440 thou/cu mm 01/18/2024 6:47 AM CDT [facility] MPV 10.0 6.5 - 11.0 fL 01/18/2024 6:47 AM CDT [facility] NRBC 0.0 % 01/18/2024 6:47 AM CDT [facility] ABS NRBC 0.0 thou /cu mm 01/18/2024 6:47 AM T [facility] Blood BLOOD SPECIMEN / Unknown Venipuncture / Unknown 01/18/2024 6:16 AM CDT 01/18/2024 6:32 AM CDT Michelle Turner DO HEMATOLOGY [facility] [address] [address], * (ABNORMAL) Protime - INR (01/18/2024 6:16 AM CDT) Only the most recent of4 resultswithin the time period is included. INR 1.9(H) <1.3 01/18/2024 6:49 AM CDT [facility] PROTIME 21.3(H) 10.3 - 12.3 sec 01/18/2024 6:49 AM CDT [facility] Blood BLOOD SPECIMEN / Unknown Venipuncture / Unknown 01/18/2024 6:16 AM CDT 01/18/2024 6:[address] [facility] - 01/18/2024 6:49 AM CDT ?Therapeutic Range 2.0-3.0 for most anticoagulated [...] seconds if the patient is on UFH. Michelle Turner DO HEMATOLOGY [facility] [address] [address], * (ABNORMAL) BASIC METABOLIC PANEL (01/18/2024 6:16 AM CDT) Only the most recent of3 resultswithin the time period is included. SODIUM 136 136 - 145 mmol/L 01/18/2024 7:23 AM CDT [facility] POTASSIUM 4.7 3.5 - 5.1 mmol/L 01/18/2024 7:23 AM CDT [facility] CHLORIDE 105 98 - 107 mmol/L 01/18/2024 7:23 AM CDT [facility] CO2,TOTAL 21(L) 22 - 29 mmol/L 01/18/2024 7:23 AM T [facility] ANION GAP 10 5 - 18 01/18/2024 7:23 AM T [facility] GLUCOSE 183(H) 70 - 99 mg/dL 01/18/2024 7:23 AM T [facility] CALCIUM 9.4 8.8 - 10.2 mg/dL 01/18/2024 7:23 AM T [facility] BUN 19 8 - 23 mg/dL 01/18/2024 7:23 AM [facility] CREATININE 1.14 0.70 - 1.20 mg/dL 01/18/2024 7:23 AM [facility] BUN/CREAT RATIO 17 10 - 20 7:23 AM [facility] eGFR 71(L) >90 mL/min/1.7 3m2 01/18/2024 7:23 AM T [facility] Comment:As of 2021, eG FR is calculated by the CKD-EPI creatinine equation without race adjustment. ??eGFR can be influenced by muscle mass, exercise, and diet. ??The reported eGFR is an estimation only and is only applicable if the renal function is stable. Blood BLOOD SPECIMEN / Unknown Venipuncture / Unknown 01/18/2024 6:16 AM CDT 01/18/2024 6:32 AM CDT Michelle Turner DO [facility] [address] [place] [address], * (ABNORMAL) MRSA/SA PCR (01/17/2024 7:28 PM CDT) MRSA DNA PCR Positive( A) Negative 01/17/2024 10:52 PM CDT [facility] STAPHYLOCOCCUS AUREUS PCR Positive( A) Negative 01/17/2024 10:52 PM CDT [facility] Other SPECIMEN FROM INTERNAL NOSE / Unknown Non-Blood / Unknown 01/17/2024 7:28 PM CDT 01/17/2024 7:41 PM CDT Narrative [facility] - 01/17/2024 10:52 PM CDT A positive test result does not necessarily indicate the presence of viable organisms. It is, however, presumptive for the presence of Methicillin Resistant Staphylococcus aureus (MRSA) or Staphylococcus aureus. Michelle Turner DO MICROBIOLOGY Performing Organization Address [facility] de Phone Number [facility] [address] [address], * (ABNORMAL) WHITE BLOOD COUNT (01/17/2024 1:18 PM CDT) WHITE BLOOD COUNT 17.8(H) 4.5 - 11.0 thou/cu mm 01/17/2024 1:50 PM CDT [facility] NRBC 0.0 % 01/17/2024 1:50 PM CDT [facility] ABS NRBC 0.0 thou /cu mm 01/17/2024 1:50 PM CDT [facility] Blood BLOOD SPECIMEN / Unknown Butterfly / Unknown 01/17/2024 1:18 PM CDT 01/17/2024 1:30 PM CDT Michelle Turner DO HEMATOLOGY Performing Organization Address [facility] Co de Phone Number [facility] [address] [place] [address], * (ABNORMAL) Hemoglobin AM (01/17/2024 1:18 PM CDT) HEMOGLOBIN 12.2(L) 13.5 - 17.5 g/dL 01/17/2024 1:50 PM CDT [facility] MCV 85 80 - 100 fL 01/17/2024 1:50 PM CDT [facility] Blood BLOOD SPECIMEN / Unknown Butterfly / Unknown 01/17/2024 1:18 PM CDT 01/17/2024 1:30 PM CDT Michelle Turner DO HEMATOLOGY Performing Organization Address City/[facility]/ZIP Co de Phone Number [facility] [address] [place] [address], * (ABNORMAL) C-REACTIVE PROTEIN (01/14/2024 11:52 AM CDT) C-REACTIVE PROTEIN 3.5(H) <0.5 mg/dL 01/14/2024 10:44 PM CDT [facility] Blood BLOOD SPECIMEN / Unknown Butterfly / Unknown 01/14/2024 11:52 AM CDT 01/14/2024 11:53 AM CDT Opal Richards DO CHEMISTRY Performing Organization Address [facility] Co de Phone Number [facility] [address] [place] [address], * (ABNORMAL) LIVER PANEL (HEPATIC FUNCTION PANEL) (01/14/2024 11:52 AM CDT) ALBUMIN 4.4 4.0 - 4.9 g/dL 01/14/2024 10:44 PM CDT [facility] PROTEIN,TOTAL 8.7(H) 6.0 - 8.0 g/dL 01/14/2024 10:44 PM CDT [facility] BILIRUBIN,TOTAL 0.4 0.0 - 1.2 mg/dL 01/14/2024 10:44 PM CDT [facility] BILIRUBIN,DIRECT <0.2 0.0 - 0.3 mg/dL 01/14/2024 10:44 PM CDT [facility] BILIRUBIN,INDIRE CT 01/14/2024 10:44 PM CDT [facility] Comment:Unable to calculate, Direct Bili <0.2 ALK PHOSPHATASE 76 40 - 129 IU/L 01/14/2024 10:44 PM CDT [facility] ALT (SGPT) 31 10 - 50 IU/L 01/14/2024 10:44 PM CDT [facility] AST (SGOT) 35 10 - 50 IU/L 01/14/2024 10:44 PM CDT [facility] Blood BLOOD SPECIMEN / Unknown Butterfly / Unknown 01/14/2024 11:52 AM CDT 01/14/2024 11:53 AM CDT Opal Tavera Maurice MARROQUIN CHEMISTRY Performing Organization Address City/[facility]/ZIP Co de Phone Number [facility] [address] [place] [address], * (ABNORMAL) POTASSIUM (01/14/2024 10:40 AM CDT) POTASSIUM 5.3(H) 3.5 - 5.1 mmol/L 01/14/2024 6:22 PM CDT [facility] Blood BLOOD SPECIMEN / Unknown Venipuncture / Unknown 01/14/2024 10:40 AM CDT 01/14/2024 10:40 AM CDT Opal Lawsonlisseth MARROQUIN CHEMISTRY Performing Organization Address City/[facility]/ZIP Co de Phone Number [facility] LABORATORY [address] [place] [address], * (ABNORMAL) CREATININE (01/14/2024 10:40 AM CDT) Only the most recent of2 resultswithin the time period is included. eGFR 49(L) >90 mL/min/1.7 3m2 01/14/2024 6:22 PM CDT [facility] Comment:As of 2021, eG FR is calculated by the CKD-EPI creatinine equation without race adjustment. ??eGFR can be influenced by muscle mass, exercise, and diet. ??The reported eGFR is an estimation only and is only applicable if the renal function is stable. CREATININE 1.54(H) 0.70 - 1.20 mg/dL 01/14/2024 6:22 PM CDT [facility] Blood BLOOD SPECIMEN / Unknown Venipuncture / Unknown 01/14/2024 10:40 AM CDT 01/14/2024 10:40 AM CDT Opal Richards DO CHEMISTRY Performing Organization Address City/[facility]/ZIP Co de Phone Number [facility] [address] [place] [address], [place] * MAGNESIUM (01/14/2024 10:40 AM CDT) MAGNESIUM 1.6 1.6 - 2.4 mg/dL 01/14/2024 6:22 PM CDT [facility] Blood BLOOD SPECIMEN / Unknown Venipuncture / Unknown 01/14/2024 10:40 AM CDT 01/14/2024 10:40 AM CDT Opal Richards DO CHEMISTRY Performing Organization Address City/[facility]/ZIP Co de Phone Number [facility] [address] [place] [address], [place] * (ABNORMAL) IRON PLUS IRON BINDING CAP (01/03/2024 11:04 AM CDT) IRON 48(L) 61 - 157 ug/dL 01/03/2024 10:03 PM CDT [facility] UIBC (UNSATURATED) 302 112 - 347 ug/dL 01/03/2024 10:03 PM CDT [facility] IRON BINDING CAPACITY 350 250 - 400 ug/dL 01/03/2024 10:03 PM CDT [facility] IRON,% SATURATION 14 14 - 50 % 01/03/2024 10:03 PM CDT [facility] Blood BLOOD SPECIMEN / Unknown Butterfly / Unknown 01/03/2024 11:04 AM CDT 01/03/2024 11:04 AM CDT Opal Richards DO CHEMISTRY [facility] [address] [address], [place] * FERRITIN (01/03/2024 11:04 AM CDT) FERRITIN 311.0 30.0 - 400.0 ng/mL 01/03/2024 10:03 PM CDT [facility] Blood BLOOD SPECIMEN / Unknown Butterfly / Unknown 01/03/2024 11:04 AM CDT 01/03/2024 11:04 AM CDT Opal Richards DO CHEMISTRY [facility] [address] [address], [place] * (ABNORMAL) INR,POCT (12/20/2023 2:25 PM CDT) Only the most recent of4 resultswithin the time period is included. INR 2.2(H) <1.3 12/20/2023 2:28 PM CDT [facility] Blood BLOOD SPECIMEN / Unknown 12/20/2023 2:25 PM CDT 12/20/2023 2:28 PM CDT Narrative [facility] - 12/20/2023 2:28 PM CDT ?Therapeutic Range 2.0-3.0 for most anticoagulated patients 2.5-3.5 or 4.0 for high risk patients Opal Richards DO LABORATORY [facility] [address] [place] [address], [place] [phone] * (ABNORMAL) HEMOGLOBIN A1C MONITORING (POCT) (12/05/2023 9:20 AM CDT) HEMOGLOBIN A1C MONITORING (POCT) 12.5(H) <=6.4 % 12/05/2023 9:46 AM CDT [facility] Blood BLOOD SPECIMEN / Unknown Capillary / Unknown 12/05/2023 9:20 AM CDT 12/05/2023 9:24 AM CDT Narrative [facility] - 12/05/2023 9:46 AM CDT ? (<=6.9%) [...] Anemias, Splenectomy ? Opal Richards DO CHEMISTRY [facility] [address] [place] [address], * [place] ABD AORTA SCREENING [[id number]] (07/02/2023 9:12 AM CDT) Anatomical Region Laterality [...] 100 - 199 mg/dL 06/20/2023 7:00 AM T [facility] [employer] [facility] Comment: Cholesterol, Total Reference Ranges Desirable <200 mg/dL Borderline 200-239 mg/dL High >=240 mg/dL TRIGLYCERIDES 530(H) <150 mg/dL 06/20/2023 7:00 AM T [facility] HDL CHOLESTEROL 30(L) >40 mg/dL 3 7:00 AM T [facility] LAB[facility] NON-HDL CHOLESTEROL 129 <145 mg/dl 06/20/2023 7:00 AM T [facility] CHOL/HDL RATIO 5.30(H) <4.50 06/20/2023 7:00 AM T [facility] LABOR[facility] LDL CHOLESTEROL 3 7:00 AM CDT [facility] Comment:Invalid LDL when Tri g >400. VLDL CHOLESTEROL COMMENT 06/20/2023 7:00 AM CDT [facility] Comment:Unable to calculate VLDL. PROVIDER ORDERED STATUS RANDOM 06/20/2023 7:00 AM CDT [facility] Blood BLOOD SPECIMEN / Unknown Venipuncture / Unknown 06/19/2023 11:13 AM CDT 06/19/2023 11:15 AM CDT Opal Richards DO CHEMISTRY [facility] [address] [place] [address], * ANTI HCV (02/27/2020 2:02 PM CDT) HEPATITIS C ANTIBODY Non-React gennaro Non-React gennaro 02/27/2020 8:36 PM CDT [facility] Comment:Antibodies to HCV no t detected; does not exclude the possibility of exposure to HCV. Blood BLOOD SPECIMEN / Unknown Butterfly / Unknown 02/27/2020 2:02 PM CDT 02/27/2020 2:03 PM CDT Radha Prieto MD SEND OUTS Performing Organization Address City/[facility]/ZIP Co de Phone Number [facility] [address] [place] [address], * SCAN-COLONOSCOPY (12/31/2017 12:00 AM CDT) Scanner OTHER from Last 3 Months or Most Recently Relevant to Health Maintenance Additional Health Concerns Infection Onset Date Last Indicated Resolved Time MRSA Comment:Order Contact Precautions. Nares surveillance cultures needed to clear patient if <12 months since positive culture. If >12 months since positive culture, precautions can be discontinued if patient has no MRSA risk factors. #1 +MRSA 01/17/24 nares; 2017 blood exclusions for contact precaution discontinuation (if > 12 months since positive culture): resides in [place] [facility] care, receiving hemodialysis, has chronic open wounds/skin damage, has long-term percutaneous indwelling medical devices Exclusions for nares collection (if <12 months since positive culture) include all of the previous exclusions plus patients on antibiotics 7 days prior to collection 01/17/2024 01/17/2024 Advance Directives * Full Code (Latest Code Status on File) Date Activated Date Inactivated Comments 01/17/2024 5:28 AM Question Answer Comments Code Status Discussion: Reviewed Preferences Care Teams Sales And Marketing Associate Relationship Specialty Start Date End Date [place] [address] PCP - General Family Practice 06/21/23
== END 2024-01-17 04:09 | disposition home or self-care (01) ==
LOC: AMB 01-18 14:06
PROVIDERS: PCP Family Medicine; Visit Provider Family Medicine
DX: N41.2 Abscess of prostate (principal)
CPT/HCPCS: A0425; A0429

== ENCOUNTER 2024-01-28 14:18 | Emergency (ER) | payer MEDICARE, SELFPAY ==
[2024-01-28 14:29] VITALS: BP 96/61; PULSE 91; RESP 20; TEMP 36.2; O2SAT 95; BMI 39.2
--- NOTE | 2024-01-28 16:34 | ED.NURSE ---
25cc saline drained from breaux balloon. Breaux catheter pulled out w/o difficulty. Balloon intact. Some purulent drainage noted at meatus.
--- OUTSIDE RECORDS SUMMARY | 2024-01-28 16:35 | XMS_ITS | Clinical Summary ---
Author Name Unknown Organization [facility] Address [place], [place] [address] Care Team Providers Care Buffing Wheel Former Machine Name Role Phone Opal Richards DO Primary Care Provider [phone] Allergies Active Allergy Reactions Criticality Noted Date Comments Iodine Hives 10/08/2019 Medications Medication Sig Dispensed Refills Start Date End Date Status Zujec-1-BBM-EPA-Fi sh Oil 1,000 mg (120 mg-180 mg) capIndications:Hyp erlipidemia, unspecified hyperlipidemia type Take 1 capsule by mouth once daily. 90 capsule 3 10/08/19 20 Active Microlet LancetIndications: Uncontrolled type 2 diabetes mellitus with hyperglycemia (HC) USE TO TEST BLOOD GLUCOSE FOUR TIMES A DAY 400 Each 3 06/09/20 22 Active amLODIPine (NORVASC) 10 mg tabletIndications: Hypertension Take 1 Tablet (10 mg) by mouth once daily. 90 Tablet 3 03/07/20 23 Active blood-glucose meterIndications:U ncontrolled type 2 diabetes mellitus with hyperglycemia (HC) As directed. Dispense meter, test strips, lancets covered by pt ins. E11.65 NIDDM type II, uncontrolled - Test 4 times/day. Reason: High A1C 1 Each 03/07/20 23 Active hydroCHLOROthiazid e (HCTZ) 25 mg tabletIndications: Hypertension Take 2 Tablets (50 mg) by mouth once daily. 180 Tablet 3 03/07/20 23 Active lisinopriL (PRINIVIL; ZESTRIL) 40 mg tabletIndications: Hypertension Take 1 Tablet (40 mg) by mouth once daily. 90 Tablet 3 03/07/20 23 Active potassium chloride (K-TAB) 20 mEq extended-release tabletIndications: Hypokalemia Take 1 Tablet (20 mEq) by mouth once daily with a meal. 90 Tablet 3 03/07/20 23 Active metFORMIN (GLUCOPHAGE XR) 500 mg Extended-Release tabletIndications: Uncontrolled type 2 diabetes mellitus with hyperglycemia (HC) Take 2 Tablets (1,000 mg) by mouth two times daily with meals. 360 Tablet 3 03/08/20 23 Active spironolactone (ALDACTONE) 50 mg tabletIndications: HTN (hypertension) Take 1 Tablet (50 mg) by mouth every morning. 100 Tablet 3 04/23/20 23 Active blood sugar diagnostic (Accu-Chek Guide test strips) stripIndications:U ncontrolled type 2 diabetes mellitus with hyperglycemia (HC) TEST 4 TIMES PER DAY DIRECTED 400 Each 3 05/22/20 Active Dexcom G7 Sensor for continuous blood glucose monitor (CGM)Indications:U ncontrolled type 2 diabetes mellitus with hyperglycemia (HC) To be used to read blood sugars, follow bat boy/girl directions. 9 Each 3 06/21/20 Active Dexcom G7 Marketing Community Liaison for continuous blood glucose monitor (CGM)Indications:U ncontrolled type 2 diabetes mellitus with hyperglycemia (HC) To be used to read blood sugars follow bat boy/girl directions. 1 Each 06/21/20 23 Active acetaminophen (TYLENOL EXTRA STRGTH) 500 mg tablet Take 500-1,000 mg by mouth every 6 hours if needed for Pain. Max acetaminophen dose: 4000mg in 24 hrs. 0 07/19/20 23 Active rosuvastatin (CRESTOR) 20 mg tabletIndications: Hyperlipidemia, unspecified hyperlipidemia type Take 1 Tablet (20 mg) by mouth at bedtime. 90 Tablet 2 08/10/20 23 Active metoprolol tartrate (LOPRESSOR) 100 mg tabletIndications: Hypertension Take 1 Tablet (100 mg) by mouth two times daily. 180 Tablet 2 09/13/19 24 Active liraglutide (VICTOZA) 0.6 mg/0.1 mL (18 mg/3 mL) subcutaneous pen Inject 1.8 mg subcutaneous once daily. 36 mL 10/25/19 24 Active Insulin Moseley, Disposable, (Novofine 32) 32 gauge x 1/4 To be used once daily with Victoza 200 Each 2 10/25/19 24 Active ferrous sulfate 325 mg delayed release tabletIndications: Iron deficiency anemia, unspecified iron deficiency anemia type Take 1 Tablet (325 mg) by mouth once daily with a meal. 90 Tablet 01/04/20 24 Active Lantus Solostar U-100 Insulin 100 unit/mL (3 mL) penIndications:Unc ontrolled type 2 diabetes mellitus with hyperglycemia (HC) Inject 80 units subcutaneous before bedtime. 90 mL 01/14/20 24 Active multivitamins-mine rals-lutein (Multivitamin 50 Plus) tab tablet Take 1 Tablet by mouth once daily. Active oxygen-air delivery systems (HOME OXYGEN)Indications :Sleep apnea, unspecified type Oxygen for home use. Liters per minute: 2-3 per nasal cannula. Frequency of use: Nocturnal;. Length of need: 999 Months. 1 Each 01/22/20 24 Active trimethoprim-sulfa methoxazole, 160-800 mg, (BACTRIM DS, SEPTRA DS) tabIndications:Pro state abscess Take 1 Tablet by mouth two times daily. 80 Tablet 01/23/20 24 Active enoxaparin (LOVENOX) 120 mg/0.8 mL injectionIndicatio ns:Pre-op examination,Right atrial thrombus,Patent foramen ovale,Anticoagulat ion monitoring, INR range 2-3 Inject 115 mg subcutaneous every 12 hours. Waste a small amount then Inject 115 mg (about 0.77 mL) subcutaneous every 12 hours until your INR is in therapeutic range. 11.2 mL 01/25/20 24 Active warfarin (COUMADIN) 3 mg tabletIndications: Right atrial thrombus,Patent foramen ovale,Anticoagulat ion monitoring, INR range 2-3,Anticoagulant long-term use Take 6mg daily until your next INR check on 01/24, then take per further instructions based on INR. 01/23/20 24 Active gabapentin (NEURONTIN) 300 mg capsuleIndications :Urethral pain Take 1 Capsule (300 mg) by mouth two times daily for 15 days. 30 Capsule 01/25/20 24 024 Active cetirizine (ZYRTEC) 10 mg tabletIndications: Environmental allergies Take 1 Tablet (10 mg) by mouth once daily. 30 Tablet 01/25/20 24 Active aspirin 325 mg tablet Take 325 mg by mouth. 024 Discontinued(Ph armacist change per medication history (E-cancel not sent)) Vit B Comp & C-Vit E-FA-Kaitlin-Zn 0.4 mg tab Take 1 Tablet by mouth once daily. 024 Discontinued(Ph armacist change per medication history (E-cancel not sent)) bd insulin pen needle uf mini 31 gauge x 11/23Indications:U ncontrolled type 2 diabetes mellitus with hyperglycemia (HC) TO BE USED WITH VICTOZA ONCE DAILY 100 Each 3 06/01/20 22 024 Discontinued(Ph armacist change per medication history (E-cancel not sent)) icosapent ethyL (Vascepa) 1 gram capsuleIndications :Hypertriglyceride ellen Take 2 g by mouth two times daily with meals. 400 Capsule 3 03/08/20 23 024 Discontinued(Ph armacist change per medication history (E-cancel not sent)) polyethylene glycol-electrolyte (GOLYTELY) 236-22.74-6.74 -5.86 gram suspensionIndicati ons:Encounter for screening colonoscopy Drink 2 liters the day before the procedure and 2 liters 6 hours prior to procedure. 4000 mL 04/25/20 23 024 Discontinued(Ph armacist change per medication history (E-cancel not sent)) enoxaparin (Lovenox) 120 mg/0.8 mL injectionIndicatio ns:Right atrial thrombus,Patent foramen ovale,Anticoagulat ion monitoring, INR range 2-3 Inject 120 mg subcutaneous every 12 hours. 8 mL 1 07/19/20 23 024 Discontinued(*M edication adjustment) Lantus Solostar U-100 Insulin 100 unit/mL (3 mL) penIndications:Unc ontrolled type 2 diabetes mellitus with hyperglycemia (HC) Inject 72 units subcutaneous before bedtime. 90 mL 12/05/19 24 024 Discontinued(*M edication adjustment) warfarin (COUMADIN) 3 mg tabletIndications: Right atrial thrombus,Patent foramen ovale,Anticoagulat ion monitoring, INR range 2-3,Anticoagulant long-term use Take by mouth 9 mg (3 mg x 3) every Mon; 6 mg (3 mg x 2) all other days in the evening OR as directed 12/20/19 24 024 Discontinued(Ot her - add note to specify (E-cancel not sent)) warfarin (COUMADIN) 3 mg tabletIndications: Right atrial thrombus,Patent foramen ovale,Anticoagulat ion monitoring, INR range 2-3,Anticoagulant long-term use Take by mouth 5: 6 mg; 01/22: Hold; 01/23: Hold; 01/24: Hold; 01/25: Hold; 01/26: Hold; Otherwise 9 mg every Mon; 6 mg all other days in the evening OR as directed 01/14/20 24 Discontinued enoxaparin (LOVENOX) 100 mg/mL injectionIndicatio ns:Pre-op examination,Right atrial thrombus,Patent foramen ovale,Anticoagulat ion monitoring, INR range 2-3 Inject 100 mg subcutaneous every 12 hours. Begin enoxaparin 100 mg subcutaneously (under the skin) every 12 hours, the morning of 01-25-2024. Last dose of enoxaparin to be taken no later than 8am in the morning (otherwise hold the dose) of 01-27-2024 5 mL 01/25/20 24 024 Discontinued(*M edication adjustment) enoxaparin (LOVENOX) 100 mg/mL injectionIndicatio ns:Pre-op [...] of 01-27-2024 7 mL 01/25/20 24 024 Discontinued(*M edication adjustment) enoxaparin (LOVENOX) 120 mg/0.8 mL injectionIndicatio [...] the dose) of 01-27-2024 4 mL 01/25/20 24 024 Discontinued aspirin 325 mg tablet Take 325 mg by mouth once daily with a meal. 024 Discontinued(*I P Discontinued) trimethoprim-sulfa methoxazole, 160-800 mg, (BACTRIM DS, SEPTRA DS) tabIndications:Pro state abscess Take 1 Tablet by mouth two times daily. 60 Tablet 1 01/22/20 24 024 Discontinued Active Problems Problem Noted Date Diagnosed Date [...] Encounters Date Type Department Care Team Description 01/26/2024 Telephone [facility] [address] [phone] Opal Richards DO Anticoagulation (Unable to contact) 01/25/2024 11:25 AM CDT Office Visit [facility] [address] [place] [address] Arben Sheets DO Hospital F/U (DOD 01/22/2024 - catheter is giving him pain ) 01/25/2024 Travel 01/24/2024 Anticoagulation (warfarin) [facility] [address] [place] [address] 1, [facility] Anticoagulation (Chart update - Colonoscopy cancelled - Post hospital) 01/24/2024 Patient Outreach [facility] [address] [place] [address] Rabia Rodrigues, RN Primary RN Care Management; Hospital F/U (LACE 56) 01/23/2024 Orders Only [facility] [address] [place] [phone] Rony Larson MD <No scans attached> 01/22/2024 Telephone [facility] [address] [place] [address] Demetrio Lopez MD Appointment 01/19/2024 11:10 AM CDT Anesthesia Event [facility] [address] [place] [address] Robi White MD [facility], [facility], [facility] 01/19/2024 10:45 AM CDT - 01/19/2024 12:49 PM CDT Surgery [facility] [address] [place] [address] Glen Chavez MD CYSTOSCOPY, TRANSURETHRAL resection of prostate, UNROOFING OF PROSTATE ABSCESS, dilation of uretheral stricture 01/18/2024 10:38 AM CDT Anesthesia Event [facility] [address] [place] [address] Pradeep Tai MD 01/17/2024 5:08 AM CDT - 01/23/2024 1:39 PM CDT Hospital Encounter [facility] [address] [place] [address] [facility], MD Johnny Lane, DO Amparo Bird Kathryn Ann, MD Sleep apnea, unspecified type (Primary Dx); Prostate abscess; Pre-op examination; Right atrial thrombus; Patent foramen ovale; Anticoagulation monitoring, INR range 2-3; Anticoagulant long-term use Discharge Disposition: Home Self Care 01/16/2024 Telephone [facility] [address] [place] [address] Opal Richards, GI update 01/15/2024 Telephone [facility] [address] [place] [address] Opal Richards, Anticoagulation (BPA-Lovenox) 01/15/2024 Telephone [facility] [address] [place] [address] Opal Richards, Medication Management (enoxaparin (LOVENOX) 100 mg/mL injection) 01/15/[address] [address] Opal Richards, Medication Management (enoxaparin (LOVENOX) 100 mg/mL injection) 01/15/2024 Orders Only [address] [phone] Opal Richards, <No scans attached> 01/15/[address] [address] Opal Richards, Anticoagulation (BPA- LOVENOX) 01/15/[address] [address] Opal Richards, Results 01/14/2024 10:25 AM CDT Preop Visit [address] [address] Opal Richards, Pre-Op Exam (Pre op, [facility], dr. lopez 01/27) 01/14/2024 Anticoagulation (warfarin) [address] [address], [facility] Anticoagulation 01/14/[address] [address] Opal Richards, DO Follow Up 01/14/2024 Telephone [facility] [address] [facility] [address] Opal Richards, DO Results 01/14/2024 Travel 01/04/2024 Orders Only [facility] [address] [place] [address] [address] Opal Richards, DO <No scans attached> 01/03/2024 11:00 AM CDT Orders Only [facility] [address] [facility] [address] Lab, [facility] 01/03/2024 Anticoagulation (warfarin) [facility] [address] [facility] [address] 1, [facility] Anticoagulation 01/03/2024 Travel 12/20/2023 2:15 PM CDT Orders Only [facility] [address] [facility] [address] Lab[facility] [place] 12/20/2023 Anticoagulation (warfarin) [facility] [address] [facility] [address], [facility] Anticoagulation 12/20/2023 Travel 12/13/2023 11:00 AM CDT Orders Only [facility] [address] [place] [address] [address] Lab, [place] 12/13/2023 Anticoagulation (warfarin) [facility] [address] [facility] [address] 1, [facility] Antico[facility] 12/13/2023 Travel 12/06/2023 Telephone [facility] [address] [facility] [address] Opal Richards, DO Medication Management (warfarin (COUMADIN) 3 mg tablet) 12/05/2023 9:35 AM CDT Office Visit [facility] [address] [facility] [address] Opal Richards, DO Diabetes 12/05/2023 9:15 AM CDT Orders Only [facility] [address] [place] [address] Lab, [place] 12/05/2023 Anticoagulation (warfarin) [facility] [address] [place] [address] 1, [facility] Anticoagulation 12/05/2023 Travel 11/28/2023 Telephone [facility] [address] [place] [address] Opal Richards, Diabetes 11/07/2023 Refill [facility] [address] [place] [address] Opal Richards, Refill Request (LANTUS SOLOSTAR 100UNIT/ML) 10/31/2023 9:00 AM DIRECTOR MEDICAL AFFAIRS Orders Only [facility] [address] [place] [address] Lab, [place] 10/31/2023 Anticoagulation (warfarin) [facility] [address] [place] [address] 1, [facility] Anticoagulation 10/31/2023 Travel 10/30/2023 Telephone [facility] [address] [place] [address] Demetrio Lopez MD Appointment 10/30/2023 Telephone [facility] [address] [place] [address] Opal Richards, Anticoagulation (INR OVERDUE REMINDER #3) from Last 3 Months Immunizations Name Administration [...] Cigars Smokeless Tobacco: Never Tobacco Cessation:Counseling Given: Yes Comments:used to smoke a couple of cigars [...] Sign Reading Time Taken Comments Blood Pressure 119/77 01/25/2024 11:35 AM CDT Pulse 85 01/25/2024 11:35 AM CDT Temperature 36.9 ??C (98.4 ??F) 01/23/2024 8:00 AM CD T Respiratory Rate 16 01/23/2024 8:00 AM CDT Oxygen Saturation 97% 01/25/2024 11: 35 AM CDT Inhaled Oxygen Concentration - - Weight 112.9 kg (248 lb 14.4 oz) 01/18/2024 6:39 AM CDT Height 170.2 cm (5' 7) 01/18/2024 9:17 AM CDT Body Mass Index 38.98 01/18/2024 6:39 AM CDT Plan of Treatment Upcoming Encounters Date Type Department Care Team (Late st Contact Info) Description 01/29/2024 11:30 AM CDT Orders Only [facility] [address] [place] [address] [place] 02/26/2024 11:00 AM CDT Office Visit [facility] [address] [facility] [address] [place], [place] [phone] Rony Larson MD [address] [id number] Health Maintenance Due Date Last Done Comments [...] Procedure Name Priority Date/Time Associated Diagnosis Comments SCAN CORRESP-EKG RESULTS 01/23/2024 2:27 PM CDT SCAN CORRESP-LABORATORY RESULTS 01/23/2024 2:27 PM CDT SCAN CORRESP-IMAGING 01/23/2024 2:27 PM CDT GLUCOSE METER Timed 01/23/2024 7:01 AM CDT PROTIME-INR Early AM 01/23/2024 4:35 AM CDT HEMATOCRIT Early AM 01/23/2024 4:31 AM CDT HEMOGLOBIN Early AM 01/23/2024 4:31 AM CDT PLATELET COUNT Early AM 01/23/2024 4:31 AM CDT GLUCOSE METER Timed 01/22/2024 9:27 PM CDT GLUCOSE METER Timed 01/22/2024 5:21 PM CDT GLUCOSE METER Timed 01/22/2024 11:39 AM CDT GLUCOSE METER Timed 01/22/2024 7:12 AM CDT CREATININE Early AM 01/22/2024 5:46 AM CDT POTASSIUM Early AM 01/22/2024 5:46 AM CDT SODIUM Early AM 01/22/2024 5:46 AM CDT PROTIME-INR Early AM 01/22/2024 5:46 AM CDT HEMATOCRIT Early AM 01/22/2024 5:46 AM CDT HEMOGLOBIN Early AM 01/22/2024 5:46 AM CDT PLATELET COUNT Early AM 01/22/2024 5:46 AM CDT GLUCOSE METER Timed 01/21/2024 10:08 PM CDT GLUCOSE METER Timed 01/21/2024 6:08 PM CDT VANCOMYCIN TROUGH Timed 01/21/2024 4:0 9 PM CDT GLUCOSE METER Timed 01/21/2024 11:50 AM CDT SCAN CORRESP-LABORATORY RESULTS 01/21/2024 10:34 AM CDT GLUCOSE METER Timed 01/21/2024 7:04 AM CDT CREATININE Early AM 01/21/2024 6:21 AM CDT ELECTROLYTE PANEL Early AM 01/21/2024 6:2 1 AM CDT PROTIME-INR Early AM 01/21/2024 6:21 AM CDT HEMATOCRIT Early AM 01/21/2024 6:21 AM CDT HEMOGLOBIN Early AM 01/21/2024 6:21 AM CDT PLATELET COUNT Early AM 01/21/2024 6:21 AM CDT SCAN-SLEEP STUDY 01/21/2024 12:00 AM CDT APTT Timed 01/20/2024 9:50 PM CDT GLUCOSE METER Timed 01/20/2024 9:20 PM CDT GLUCOSE METER Timed 01/20/2024 5:16 PM CDT CREATININE MARIANELA 01/20/2024 11:39 AM CDT BUN MARIANELA 01/20/2024 11:39 AM CDT HEMATOCRIT MARIANELA 01/20/2024 11:39 AM CDT HEMOGLOBIN MARIANELA 01/20/2024 11:39 AM CDT PLATELET COUNT MARIANELA 01/20/2024 11:39 AM CDT APTT MARIANELA 01/20/2024 11:39 AM CDT PROTIME-INR MARIANELA 01/20/2024 11:39 AM CDT GLUCOSE METER Timed 01/20/2024 11:29 AM CDT GLUCOSE METER Timed 01/20/2024 6:21 AM CDT HEMOGLOBIN Early AM 01/20/2024 3:00 AM CDT BASIC METABOLIC PANEL Early AM 01/20/2024 3:00 AM CDT PROTIME-INR Early AM 01/20/2024 3:00 AM CDT VANCOMYCIN TROUGH Timed 01/20/2024 3:0 0 AM CDT GLUCOSE METER Timed 01/19/2024 9:12 PM CDT GLUCOSE METER Timed 01/19/2024 4:45 PM CDT GLUCOSE METER Timed 01/19/2024 12:55 PM CDT GLUCOSE METER Timed 01/19/2024 11:51 AM CDT ENDOTRACHEAL TUBE Routine 01/19/2024 11:32 AM CDT ENDOTRACHEAL TUBE Routine 01/19/2024 11:32 AM CDT ENDOTRACHEAL TUBE Routine 01/19/2024 11:32 AM CDT ENDOTRACHEAL TUBE Routine 01/19/2024 11:32 AM CDT CYSTOSCOPY DILATION URETHRA Class E Urgent 01/19/2024 10:53 AM CDT Prostate abscess, urethral stricture Case Notes TUR SET BIPOLAR CYSTOSCOPY RESECTION TRANSURETHRA PROSTATE Class E Urgent 01/19/2024 10:53 AM CDT Prostate abscess, urethral stricture Case Notes TUR SET BIPOLAR GLUCOSE METER Timed 01/19/2024 10:06 AM CDT PROTIME-INR Early AM 01/19/2024 9:19 AM CDT HEMOGLOBIN Early AM 01/19/2024 9:19 AM CDT POTASSIUM Early AM 01/19/2024 9:19 AM CDT GLUCOSE METER Timed 01/19/2024 7:20 AM CDT GLUCOSE METER Timed 01/18/2024 9:35 PM CDT GLUCOSE METER Timed 01/18/2024 5:22 PM CDT SCAN CORRESP-LABORATORY RESULTS 01/18/2024 3:04 PM CDT GLUCOSE METER Timed 01/18/2024 11:14 AM CDT [...] GLUCOSE METER Timed 01/17/2024 6:48 AM CDT SCAN-CARDIAC STRIP 01/17/2024 12:00 AM CDT HEPATIC FUNCTION PANEL Add On 01/14/2024 11:52 AM CDT Abdominal pain, RLQ (right lower quadrant) C-REACTIVE PROTEIN Add On 01/14/2024 11:52 AM CDT Abdominal pain, RLQ (right lower quadrant) CBC W PLT NO DIFF Routine 01/14/2024 11:52 AM CDT Pre-op examination BASIC METABOLIC PANEL [...] CBC W PLT NO DIFF STAT 01/03/2024 11:04 AM CDT Right atrial [...] hyperglycemia (HC) INR,POCT Routine 10/31/2023 9:04 AM DIRECTOR MEDICAL AFFAIRS Right atrial thrombus Patent foramen ovale Anticoagulation monitoring, INR range 2-3 US ABD AORTA SCREENING Routine 07/02/2023 9:12 AM CDT Screening for AAA (aortic abdominal aneurysm) LIPID PANEL W REFLEX MEASURED LDL Routine 06/19/2023 11:13 AM CDT Hyperlipidemia, unspecified hyperlipidemia type ANTI HCV Routine 02/27/2020 2:02 PM CDT Encounter for hepatitis C screening test for low risk patient SCAN-COLONOSCOPY 12/31/2017 12:00 AM CDT from Last 3 Months or Most Recently Relevant to Health Maintenance Results * SCAN CORRESP-LABORATORY RESULTS (01/23/2024 2:27 PM CDT) Only the most recent of3 resultswithin the time period is included. Narrative 01/23/2024 2:27 PM CDT Ordered by an unspecified provider. Other Clinical Staff OTHER * SCAN CORRESP-EKG RESULTS (01/23/2024 2:27 PM CDT) Narrative 01/23/2024 2:27 PM CDT Ordered by an unspecified provider. Other Clinical Staff OTHER * SCAN CORRESP-IMAGING (01/23/2024 2:27 PM CDT) Anatomical Region Laterality Modality Other Narrative 01/23/2024 2:27 PM CDT Ordered by an unspecified provider. Other Clinical Staff OTHER * (ABNORMAL) GLUCOSE METER (01/23/2024 7:01 AM CDT) Only the most recent of28 resultswithin the time period is included. GLUCOSE METER 280(H) 65 - 100 mg/dL 01/23/2024 7:02 AM CDT [facility] Blood BLOOD SPECIMEN / Unknown 01/23/2024 7:01 AM CDT 01/23/2024 7:02 AM CDT Sunni Christensen MD CHEMISTRY Performing Organization Address [facility] Co de Phone Number [facility] [address] [place] [address], * (ABNORMAL) PROTIME-INR (01/23/2024 4:35 AM CDT) Only the most recent of10 resultswithin the time period is included. INR 1.3(H) <1.3 01/23/2024 5:31 AM CDT [facility] PROTIME 14.0(H) 10.3 - 12.3 sec 01/23/2024 5:31 AM CDT [facility] Blood BLOOD SPECIMEN / Unknown Venipuncture / Unknown 01/23/2024 4:35 AM CDT 01/23/2024 5:05 AM CDT Narrative [facility] - 01/23/2024 5:31 AM CDT ?Therapeutic Range 2.0-3.0 for most [...] is on UFH. Michelle Turner DO HEMATOLOGY Performing Organization Address [facility] Co de Phone Number [facility] [address] [place] [address], * PLATELET COUNT (01/23/2024 4:31 AM CDT) Only the most recent of4 resultswithin the time period is included. PLATELET COUNT 234 140 - 440 thou/cu mm 01/23/2024 5:10 AM CDT [facility] MPV 10.2 6.5 - 11.0 fL 01/23/2024 5:10 AM CDT [facility] Blood BLOOD SPECIMEN / Unknown Venipuncture / Unknown 01/23/2024 4:31 AM CDT 01/23/2024 5:05 AM CDT [facility] - 01/23/2024 5:10 AM CDT Every morning while on IV heparin. Every morning while on IV heparin. Necessary every morning while on IV heparin. Michelle Turner DO HEMATOLOGY Performing Organization Address City/[facility]/ZIP Co de Phone Number [facility] [address] [place] [id number], * (ABNORMAL) HEMOGLOBIN (01/23/2024 4:31 AM CDT) Only the most recent of7 resultswithin the time period is included. HEMOGLOBIN 10.3(L) 13.5 - 17.5 g/dL 01/23/2024 5:10 AM CDT [facility] MCV 84 80 - 100 fL 01/23/2024 5:10 AM CDT [facility] Blood BLOOD SPECIMEN / Unknown Venipuncture / Unknown 01/23/2024 4:31 AM CDT 01/23/2024 5:05 AM CDT [facility] - 01/23/2024 5:10 AM CDT Every morning while on IV heparin. Every morning while on IV heparin. Necessary every morning while on IV heparin. Michelle Turner DO HEMATOLOGY Performing Organization Address City/[facility]/ZIP Co de Phone Number [facility] [address] [place] [phone], * (ABNORMAL) HEMATOCRIT (01/23/2024 4:31 AM CDT) Only the most recent of4 resultswithin the time period is included. HEMATOCRIT 31.9(L) 37.0 - 53.0 % 01/23/2024 5:10 AM CDT [facility] Blood BLOOD SPECIMEN / Unknown Venipuncture / Unknown 01/23/2024 4:31 AM CDT 01/23/2024 5:05 AM CDT Narrative [facility] - 01/23/2024 5:10 AM CDT Every morning while on IV heparin. Every morning while on IV heparin. Necessary every morning while on IV heparin. Michelle Turner DO HEMATOLOGY Performing Organization Address City/[facility] Co de Phone Number [facility] [address] [phone], [place] * Sodium AM (01/22/2024 5:46 AM CDT) SODIUM 137 136 - 145 mmol/L 01/22/2024 6:27 AM CDT [facility] LABORATORY Blood BLOOD SPECIMEN / Unknown Venipuncture / Unknown 01/22/2024 5:46 AM CDT 01/22/2024 5:58 AM CDT Sunni Christensen MD CHEMISTRY Performing Organization Address [facility] de Phone Number [facility] [address] [place] [address], [place] * Potassium AM (01/22/2024 5:46 AM CDT) Only the most recent of3 resultswithin the time period is included. POTASSIUM 4.1 3.5 - 5.1 mmol/L 01/22/2024 6:27 AM CDT [facility] Blood BLOOD SPECIMEN / Unknown Venipuncture / Unknown 01/22/2024 5:46 AM CDT 01/22/2024 5:58 AM CDT Sunni Christensen MD CHEMISTRY Performing Organization Address City/[facility] Co de Phone Number [facility] [address] [address], [place] * Creatinine AM (01/22/2024 5:46 AM CDT) Only the most recent of5 resultswithin the time period is included. eGFR >90 >90 mL/min/1.7 3m2 01/22/2024 6:27 AM CDT [facility] Comment:As of 2021, eG FR is calculated by the CKD-EPI creatinine equation without race adjustment. ??eGFR can be influenced by muscle mass, exercise, and diet. ??The reported eGFR is an estimation only and is only applicable if the renal function is stable. CREATININE 0.84 0.70 - 1.20 mg/dL 01/22/2024 6:27 AM CDT [facility] Blood BLOOD SPECIMEN / Unknown Venipuncture / Unknown 01/22/2024 5:46 AM CDT 01/22/2024 5:58 AM CDT Sunni Christensen MD CHEMISTRY Performing Organization Address [facility] de Phone Number [facility] [address] [place] [address], [place] * VANCOMYCIN TROUGH (01/21/2024 4:09 PM CDT) Only the most recent of2 resultswithin the time period is included. VANCOMYCIN,TRO UGH 12.1 7.0 - 20.0 ug/mL 01/21/2024 4:54 PM CDT [facility] LABORATORY DATE OF LAST DOSE,TROUGH 01/21/2024 01/21/2024 4:54 PM CDT [facility] TRAL LAB[facility] TIME OF LAST DOSE,TROUGH 4:08 AM 01/21/2024 4:54 PM CDT [facility] Blood BLOOD SPECIMEN / Unknown Venipuncture / Unknown 01/21/2024 4:09 PM CDT 01/21/2024 4:16 PM CDT Sunni Christensen MD CHEMISTRY Performing Organization Address [facility] Co de Phone Number [facility] [address] [address], [place] * (ABNORMAL) Electrolyte panel AM (01/21/2024 6:21 AM CDT) SODIUM 136 136 - 145 mmol/L 01/21/2024 7:06 AM CDT [facility] POTASSIUM 3.8 3.5 - 5.1 mmol/L 01/21/2024 7:06 AM CDT [facility] CHLORIDE 106 98 - 107 mmol/L 01/21/2024 7:06 AM CDT [facility] CO2,TOTAL 20(L) 22 - 29 mmol/L 01/21/2024 7:06 AM CDT [facility] ANION GAP 10 5 - 18 01/21/2024 7:06 AM CDT [facility] Blood BLOOD SPECIMEN / Unknown Venipuncture / Unknown 01/21/2024 6:21 AM CDT 01/21/2024 6:38 AM CDT Michelle Turner DO CHEMISTRY Performing Organization Address [facility]/ZIP Co de Phone Number [facility] [address] [place] [address], * SCAN-SLEEP STUDY (01/21/2024 12:00 AM CDT) Narrative 01/21/2024 12:00 AM CDT Ordered by an unspecified provider. Other Clinical Staff OTHER * APTT (01/20/2024 9:50 PM CDT) Only the most recent of2 resultswithin the time period is included. APTT 31 28 - 36 sec 01/20/2024 10:14 PM CDT [facility] Blood BLOOD SPECIMEN / Unknown Venipuncture / Unknown 01/20/2024 9:50 PM CDT 01/20/2024 10:02 PM CDT Narrative [facility] - 01/20/2024 10:14 PM CDT Therapeutic Range: 57-87 seconds Sunni Christensen MD HEMATOLOGY Performing Organization Address City/[facility]/ZIP Co de Phone Number [facility] [address] [place] [address], [place] * BUN (01/20/2024 11:39 AM CDT) BUN 16 8 - 23 mg/dL 01/20/2024 1:13 PM CDT [facility] Blood BLOOD SPECIMEN / Unknown Venipuncture / Unknown 01/20/2024 11:39 AM CDT 01/20/2024 12:24 PM CDT Michelle Turner DO CHEMISTRY [facility] [address] [place] [address], * (ABNORMAL) BASIC METABOLIC PANEL (01/20/2024 3:00 AM CDT) Only the most recent of4 resultswithin the time period is included. SODIUM 136 136 - 145 mmol/L 01/20/2024 3:53 AM CDT [facility] TRAL LAB[facility]ATORY POTASSIUM 4.4 3.5 - 5.1 mmol/L 01/20/2024 3:53 AM T [facility] TRAL LAB[facility]ORY CHLORIDE 102 98 - 107 mmol/L 01/20/2024 3:53 AM T [facility] CO2,TOTAL 22 22 - 29 mmol/L 01/20/2024 3:53 AM T [facility] TR[facility] ANION GAP 12 5 - 18 01/20/2024 3:53 AM T [facility] GLUCOSE 244(H) 70 - 99 mg/dL 01/20/2024 3:53 AM T [facility] TR[facility] CALCIUM 9.1 8.8 - 10.2 mg/dL 01/20/2024 3:53 AM CDT [facility] BUN 16 8 - 23 mg/dL 01/20/2024 3:53 AM T [facility] CREATININE 1.21(H) 0.70 - 1.20 mg/dL 01/20/2024 3:53 AM T [facility] TRAL LAB[facility] BUN/CREAT RATIO 13 10 - 20 3:53 AM CDT [facility] TRAL LABORATORY eGFR 66(L) >90 mL/min/1.7 3m2 01/20/2024 3:53 AM CDT [facility] Comment:As of 2021, eG FR is calculated by the CKD-EPI creatinine equation without race adjustment. ??eGFR can be influenced by muscle mass, exercise, and diet. ??The reported eGFR is an estimation only and is only applicable if the renal function is stable. Blood BLOOD SPECIMEN / Unknown Butterfly / Unknown 01/20/2024 3:00 AM CDT 01/20/2024 3:24 AM CDT Michelle Turner DO CHEMISTRY [facility] [address] [place], [place] [id number], * HCHG TUBE PR1, HCHG INSTRUMENT DISP PR10, HCHG STYLET PR1, HCHG MOUTHPIECE PR1 (01/19/2024 11:32 AMCDT) Narrative Arvin Castro CRNA - 01/19/2024 11:32 AM CDT Arvin Castro CRNA ? 01/19/2024 11:33 AM Procedure: ETT Patient location during procedure: OR ETT Properties Mask Ventilation: not attempted Final Technique: video laryngoscopy Type: straight Location: oral Tube Size: 7.5 mm Stylet: yes Laryngoscope Blade: Glidescope Insertion Attempts: 1 Placement Verification: auscultation, end tidal CO2 and symmetrical chest wall movement Assessment: pharynx clear Secured at: 23 Measured From: teeth Tooth guard used and removed: yes Bite Block: oral airway Difficulty: 0 (not difficult) Robi White MD ANESTHESIA PX N OTE ORDERABLES * (ABNORMAL) CBC no diff AM (01/18/2024 6:16 AM CDT) Only the most recent of3 resultswithin the time period is included. WHITE BLOOD COUNT 11.2(H) 4.5 - 11.0 thou/cu mm 01/18/2024 6:47 AM CDT [facility] TRAL LAB[facility] RED BLOOD COUNT 3.91(L) 4.30 - 5.90 mil/cu mm 01/18/2024 6:47 AM CDT [facility] HEMOGLOBIN 11.0(L) 13.5 - 17.5 g/dL 01/18/2024 6:47 AM CDT [facility] HEMATOCRIT 33.5(L) 37.0 - 53.0 % 01/18/2024 6:47 AM CDT [facility] MCV 86 80 - 100 fL 01/18/2024 6:47 AM CDT [facility] MCH 28.1 26.0 - 34.0 pg 01/18/2024 6:47 AM CDT [facility] MCHC 32.8 32.0 - 36.0 g/dL 01/18/2024 6:47 AM CDT [facility] RDW 13.7 11.5 - 15.5 % 01/18/2024 6:47 AM CDT [facility] PLATELET COUNT 228 140 - 440 thou/cu mm 01/18/2024 6:47 AM CDT [facility] MPV 10.0 6.5 - 11.0 fL 01/18/2024 6:47 AM CDT [facility] NRBC 0.0 % 01/18/2024 6:47 AM CDT [facility] ABS NRBC 0.0 thou /cu mm 01/18/2024 6:47 AM T [facility] Blood BLOOD SPECIMEN / Unknown Venipuncture / Unknown 01/18/2024 6:16 AM CDT 01/18/2024 6:32 AM CDT Michelle Turner DO HEMATOLOGY [facility] [address] [place] [address], * (ABNORMAL) MRSA/SA PCR (01/17/2024 7:28 PM CDT) MRSA DNA PCR Positive( A) Negative 01/17/2024 10:[address] [facility] STAPHYLOCOCCUS AUREUS PCR Positive( A) Negative 01/17/2024 10:[address] [facility] Other SPECIMEN FROM INTERNAL NOSE / Unknown Non-Blood / Unknown 01/17/2024 7:28 PM CDT 01/17/2024 7:41 PM CDT Narrative [facility] - 01/17/2024 10:52 PM CDT A positive test result does not necessarily indicate the presence of viable organisms. It is, however, presumptive for the presence of Methicillin Resistant Staphylococcus aureus (MRSA) or Staphylococcus aureus. Michelle Turner DO MICROBIOLOGY Performing Organization Address City/[facility]/ZIP Co de Phone Number [facility] [address] [place] [address], [place] * (ABNORMAL) WHITE BLOOD COUNT (01/17/2024 1:18 PM CDT) WHITE BLOOD COUNT 17.8(H) 4.5 - 11.0 thou/cu mm 01/17/2024 1:50 PM CDT [facility] NRBC 0.0 % 01/17/2024 1:50 PM CDT [facility] ABS NRBC 0.0 thou /cu mm 01/17/2024 1:50 PM CDT [facility] Blood BLOOD SPECIMEN / Unknown Butterfly / Unknown 01/17/2024 1:18 PM CDT 01/17/2024 1:30 PM CDT Michelle Turner DO HEMATOLOGY Performing Organization Address City/[facility]/ZIP Co de Phone Number [facility] [address] [place] [address], [place] * SCAN-CARDIAC STRIP (01/17/2024 12:00 AM CDT) Narrative 01/17/2024 12:00 AM CDT Ordered by an unspecified provider. Other Clinical Staff OTHER * (ABNORMAL) C-REACTIVE PROTEIN (01/14/2024 11:52 AM CDT) C-REACTIVE PROTEIN 3.5(H) <0.5 mg/dL 01/14/2024 10:44 PM CDT [facility] Blood BLOOD SPECIMEN / Unknown Butterfly / Unknown 01/14/2024 11:52 AM CDT 01/14/2024 11:53 AM CDT Opal Richards DO CHEMISTRY [facility] [address] [place] [address], * (ABNORMAL) LIVER PANEL (HEPATIC FUNCTION PANEL) (01/14/2024 11:52 AM CDT) ALBUMIN 4.4 4.0 - 4.9 g/dL 01/14/2024 10:44 PM CDT [facility] PROTEIN,TOTAL 8.7(H) 6.0 - 8.0 g/dL 01/14/2024 10:44 PM CDT [facility] BILIRUBIN,TOTAL 0.4 0.0 - 1.2 mg/dL 01/14/2024 10:44 PM CDT [facility] BILIRUBIN,DIRECT <0.2 0.0 - 0.3 mg/dL 01/14/2024 10:44 PM CDT [facility] BILIRUBIN,INDIRE CT 01/14/2024 10:44 PM CDT [facility] Comment:Unable to calculate, Direct Bili <0.2 ALK PHOSPHATASE 76 40 - 129 IU/L 01/14/2024 10:44 PM CDT [facility] ALT (SGPT) 31 10 - 50 IU/L 01/14/2024 10:44 PM CDT [facility] AST (SGOT) 35 10 - 50 IU/L 01/14/2024 10:44 PM CDT [facility] Blood BLOOD SPECIMEN / Unknown Butterfly / Unknown 01/14/2024 11:52 AM CDT 01/14/2024 11:53 AM CDT Opal Richards DO CHEMISTRY Performing Organization Address City/[facility]/ZIP Co de Phone Number [facility] [address] [place] [address], [place] * MAGNESIUM (01/14/2024 10:40 AM CDT) MAGNESIUM 1.6 1.6 - 2.4 mg/dL 01/14/2024 6:22 PM CDT [facility] Blood BLOOD SPECIMEN / Unknown Venipuncture / Unknown 01/14/2024 10:40 AM CDT 01/14/2024 10:40 AM CDT Opal Richards DO CHEMISTRY Performing Organization Address [facility]/ZIP Co de Phone Number [facility] [address] [place] [address], [place] * (ABNORMAL) IRON PLUS IRON BINDING CAP (01/03/2024 11:04 AM CDT) IRON 48(L) 61 - 157 ug/dL 01/03/2024 10:03 PM CDT [facility] UIBC (UNSATURATED) 302 112 - 347 ug/dL 01/03/2024 10:03 PM CDT [facility] IRON BINDING CAPACITY 350 250 - 400 ug/dL 01/03/2024 10:03 PM CDT [facility] IRON,% SATURATION 14 14 - 50 % 01/03/2024 10:03 PM CDT [facility] Blood BLOOD SPECIMEN / Unknown Butterfly / Unknown 01/03/2024 11:04 AM CDT 01/03/2024 11:04 AM CDT Opal Richards DO CHEMISTRY Performing Organization Address City/[facility]/ZIP Co de Phone Number [facility] [address] [place] [address], [place] * FERRITIN (01/03/2024 11:04 AM CDT) FERRITIN 311.0 30.0 - 400.0 ng/mL 01/03/2024 10:03 PM CDT [facility] Blood BLOOD SPECIMEN / Unknown Butterfly / Unknown 01/03/2024 11:04 AM CDT 01/03/2024 11:04 AM CDT Opal Richards DO CHEMISTRY [facility] [address] [address], [place] * (ABNORMAL) INR,POCT (12/20/2023 2:25 PM CDT) Only the most recent of4 resultswithin the time period is included. INR 2.2(H) <1.3 12/20/2023 2:28 PM CDT [facility] Blood BLOOD SPECIMEN / Unknown 12/20/2023 2:25 PM CDT 12/20/2023 2:28 PM CDT Narrative [facility] - 12/20/2023 2:28 PM CDT ?Therapeutic Range 2.0-3.0 for most anticoagulated patients 2.5-3.5 or 4.0 for high risk patients Opal Richards DO LABORATORY [facility] [address] [place] [address], [place] [phone] * (ABNORMAL) HEMOGLOBIN A1C MONITORING (POCT) (12/05/2023 9:20 AM CDT) HEMOGLOBIN A1C MONITORING (POCT) 12.5(H) <=6.4 % 12/05/2023 9:46 AM CDT [facility] Blood BLOOD SPECIMEN / Unknown Capillary / Unknown 12/05/2023 9:20 AM CDT 12/05/2023 9:24 AM CDT Narrative [facility] - 12/05/2023 9:46 AM CDT ? [...] Anemias, Splenectomy ? Opal Richards DO CHEMISTRY [facility] [address] [place] [address], * [place] ABD AORTA SCREENING [[id number]] (07/02/2023 9:12 AM CDT) Anatomical Region Laterality [...] - 199 mg/dL 06/20/2023 7:00 AM T [facility] LAB[facility]ATORY Comment: Cholesterol, Total Reference Ranges Desirable <200 mg/dL Borderline 200-239 mg/dL High >=240 mg/dL TRIGLYCERIDES 530(H) <150 mg/dL 06/20/2023 7:00 AM T [facility] TR[facility] LAB[facility] HDL CHOLESTEROL 30(L) >40 mg/dL 3 7:00 AM T [facility] TRAL LABORATORY NON-HDL CHOLESTEROL 129 <145 mg/dl 06/20/2023 7:00 AM T [facility] TR[facility] LAB[facility] CHOL/HDL RATIO 5.30(H) <4.50 06/20/2023 7:00 AM T [facility] LDL CHOLESTEROL 3 7:00 AM CDT [facility] Comment:Invalid LDL when Tri g >400. VLDL CHOLESTEROL COMMENT 06/20/2023 7:00 AM CDT [facility] Comment:Unable to calculate VLDL. PROVIDER ORDERED STATUS RANDOM 06/20/2023 7:00 AM CDT [facility] Blood BLOOD SPECIMEN / Unknown Venipuncture / Unknown 06/19/2023 11:13 AM CDT 06/19/2023 11:15 AM CDT Opal Richards DO CHEMISTRY [facility] [address] [place] [address], * ANTI HCV (02/27/2020 2:02 PM CDT) HEPATITIS C ANTIBODY Non-React gennaro Non-React gennaro 02/27/2020 8:36 PM CDT [facility] Comment:Antibodies to HCV no t detected; does not exclude the possibility of exposure to HCV. Blood BLOOD SPECIMEN / Unknown Butterfly / Unknown 02/27/2020 2:02 PM CDT 02/27/2020 2:03 PM CDT Radha Prieto MD SEND OUTS Performing Organization Address City/[facility]/ZIP Co de Phone Number [facility] [address] [place] [address], * SCAN-COLONOSCOPY (12/31/2017 12:00 AM CDT) Scanner OTHER from Last 3 Months or Most Recently Relevant to Health Maintenance Additional Health Concerns Infection Onset Date Last Indicated MRSA Comment:Order Contact Precautions. Nares surveillance cultures needed to clear patient if <12 months since positive culture. If >12 months since positive culture, precautions can be discontinued if patient has no MRSA risk factors. #1 +MRSA 01/17/24 nares; 2017 blood exclusions for contact precaution discontinuation (if > 12 months since positive culture): resides in acute/nursing home care, receiving hemodialysis, has chronic open wounds/skin damage, has long-term percutaneous indwelling medical devices Exclusions for nares collection (if <12 months since positive culture) include all of the previous exclusions plus patients on antibiotics 7 days prior to collection 01/17/2024 01/17/2024 Advance Directives * Full Code (Latest Code Status on File) Date Activated Date Inactivated Comments 01/17/2024 5:28 AM 01/23/2024 3:44 PM Question Answer Comments Code Status Discussion: Reviewed Preferences Care Teams Buffing Wheel Former Machine Relationship Specialty Start Date End Date [place] [address] [address] PCP - General Family Practice 06/21/23
[2024-01-28 16:57] VITALS: BP 96/61; PULSE 91; RESP 20; TEMP 36.2
--- NOTE | 2024-01-28 17:24 | ED_ITS ---
HPI - General Adult General Date Seen: 01/28/24 Chief complaint: Unspecified Complaint, Adult Stated complaint: Needs catheter removed Time Seen by Provider: 01/28/24 16:13 Source: patient, RN notes reviewed and old records reviewed Mode of arrival: ambulatory Limitations: no limitations History of Present Illness HPI narrative: Patient is a 68-year-old man who was seen here recently with a prostatic abscess, was transferred to [place] and this was treated there. He says that he was supposed to go up to [place] today to have his catheter removed but he did have a ride so he came here instead. He tells me has an appointment tomorrow for lab draw and then has to see urology again at the beginning of February. He also notes that he thinks he sprained his elbow while he was in the hospital trying to get out of bed. It has been kind of sore. He has not had any swelling, redness, fevers. He says when he takes Tylenol feels better, does not think he needs any evaluation just mentioned it to the nurse. Otherwise pain is been controlled, no fevers, chills, vomiting or other complaints. Related Data Home Medications Medication Instructions Recorded Confirmed Victoza 2-Isaac 1.8 mg SUBQ-VAC DAILY 09/04/23 01/28/24 hydrochlorothiazide 25 mg tablet 25 mg PO BID 09/04/23 01/28/24 insulin glargine 100 unit/mL (3 unit subcut 09/04/23 mL) subcutaneous pen (Lantus Solostar U-100 Insulin) lisinopril 40 mg tablet 40 mg PO DAILY 09/04/23 01/28/24 metformin 500 mg tablet,extended 1,000 mg PO BID 09/04/23 01/28/24 release 24 hr metoprolol tartrate 100 mg tablet 100 mg PO BID 09/04/23 01/28/24 potassium chloride 20 mEq 20 meq PO DAILY 09/04/23 01/28/24 tablet,extended release rosuvastatin 20 mg tablet 20 mg PO QPM 09/04/23 01/28/24 spironolactone 50 mg tablet 50 mg PO DAILY 09/04/23 01/28/24 warfarin 3 mg tablet PO 09/04/23 Previous Rx's Medication Instructions Recorded cephalexin 500 mg capsule 500 mg PO TID 10 days #30 caps 09/04/23 Allergies Allergy/AdvReac Type Severity Reaction Status Date / Time No Known Drug Allergies [facility] Social History Smoking Status: Former smoker How often do you have a drink containing alcohol: monthly or less How often do you have six or more drinks on one occasion: Never AUDIT-C Alcohol total score: 1 Non-prescribed substance use: denies use Exam Narrative: Exam Narrative: Vital signs reviewed. In general, alert, well-appearing man. Abdomen: Soft nontender. Extremities: The left elbow is normal in appearance, there is no erythema, effusion, warmth. Full range of motion. Nontender to palpation. No deformity. Distal CMS normal. Skin: Warm dry well perfused. Const: Vital Signs, click to edit/add: Vital Signs - 24 hr 01/28/24 14:29 01/28/24 16:57 Temperature 97.2 F L 97.2 F L Pulse Rate [Pulse Oximeter] 91 91 Respiratory Rate 20 20 Blood Pressure [Ri ght Upper Arm] 96/61 96/61 Pulse Oximetry 95 Oxygen Delivery Me thod Room Air Documenting provider has reviewed patient's vital signs: yes Course Course ED Course: In the absence of trauma, fever, or findings on exam I did not feel we needed to pursue the elbow pain. This can be recheck with primary care if not improving. Patient reports catheter was due to be discontinued today so we will take that out for him. If he has difficulty with voiding, return at any time. Otherwise follow up as planned with Urology. Vital Signs Vital signs: Initial Vital Signs Temperature 97.2 F L 01/28/24 14:29 Temperature Source Temporal Artery Scan 01/28/24 14:29 Pulse Rate 91 01/28/24 14:29 Respiratory Rate 20 01/28/24 14:29 Blood Pressure 96/61 01/28/24 14:29 Blood Pressure Mean 72 01/28/24 14:29 Blood Pressure Position Sitting 01/28/24 14:29 Pulse Oximetry 95 01/28/24 14:29 Oxygen Delivery Method Room Air 01/28/24 14:29 Vital Signs Temperature 97.2 F L 01/28/24 14:29 Pulse Rate 91 01/28/24 14:29 Respiratory Rate 20 01/28/24 14:29 Blood Pressure 96/61 01/28/24 14:29 Pulse Oximetry 95 01/28/24 14:29 Oxygen Delivery Method Room Air 01/28/24 14:29 Temperature 97.2 F L 01/28/24 16:57 Pulse Rate 91 01/28/24 16:57 Respiratory Rate 20 01/28/24 16:57 Blood Pressure 96/61 01/28/24 16:57 Pulse Oximetry 95 01/28/24 14:29 Oxygen Delivery Method Room Air 01/28/24 14:29 Discharge Plan Discharge Clinical Impression: Encounter for Rodriguez catheter removal Patient Disposition: Home, Self-Care Condition: Stable Additional Instructions: Follow-up with urology as planned. Return if unable to void, fever, other significant symptoms. Prescriptions: No Action metoprolol tartrate 100 mg tablet 100 mg PO BID warfarin 3 mg tablet PO hydrochlorothiazide 25 mg tablet 25 mg PO BID lisinopril 40 mg tablet 40 mg PO DAILY metformin 500 mg tablet extended release 24 hr 1,000 mg PO BID spironolactone 50 mg tablet 50 mg PO DAILY rosuvastatin 20 mg tablet 20 mg PO QPM insulin glargine [Lantus Solostar U-100 Insulin] 100 unit/mL (3 mL) insulin pen subcut potassium chloride 20 mEq tablet extended release 20 meq PO DAILY Victoza 2-Isaac 1.8 mg SUBQ-VAC DAILY cephalexin 500 mg capsule 500 mg PO TID 10 Days Qty: 30 0RF Follow Up/Referrals: Opal Richards DO [Primary Care Provider] - Stand Alone Forms: [facility] Info Instructions
== END 2024-01-28 16:58 | disposition home or self-care (01) ==
PROVIDERS: Emergency Provider Emergency Medicine; PCP Family Medicine
DX: Z46.6 Encounter for fitting and adjustment of urinary device (principal)
CPT/HCPCS: 99282; 99283

== ENCOUNTER 2024-02-05 19:23 | Observation (INO) | payer MEDICARE, SELFPAY ==
[2024-02-05 19:35] VITALS: BP 111/75; PULSE 84; RESP 16; TEMP 36.4; O2SAT 98; BMI 39.5
--- NOTE | 2024-02-05 19:51 | CRLHL7_ITS ---
For Patients: As a result of the Century Cures Act, medical imaging exams and procedure reports are released immediately into your electronic medical record. You may view this report before your referring provider. If you have questions, please contact your health care provider. INDICATION: Abdominal pain. TECHNIQUE: Multiplanar CT examination of the abdomen and pelvis was performed after the administration of 100 mL Omnipaque 350 intravenous contrast. COMPARISON: CT abdomen pelvis 01/16/2024. FINDINGS: Lower chest: No focal consolidation. Normal heart size. No pleural effusions or pneumothorax. Dependent atelectasis. Linear band like opacification of the lungs, likely subsegmental atelectasis. Liver: There are scattered hepatic hypodensities, likely simple hepatic cysts. Gallbladder: Cholelithiasis without gallbladder distention or wall thickening. Biliary: Unremarkable. Pancreas: Within normal limits. Spleen: Unremarkable. Adrenal glands: Unremarkable. Renal/ureters/bladder: Normal in size and symmetrically enhancing. Stable nonobstructing 3 mm urinary calculus within the distal left ureter. No suspicious renal masses. The ureters appear unremarkable. The bladder is within normal limits. Pelvis: Interval decrease in the size of a complex, heterogeneously enhancing multi-septated collection in the prostate now measuring approximately 1.4 x 1.3 x 3.9 cm, previously 5.3 x 6.6 x 5.0 cm. Gastrointestinal: No bowel wall thickening or bowel obstruction. Nonvisualized appendix. No significant colonic diverticulosis. Mild colonic stool burden. Vasculature: No aortic aneurysm. The portal vein remains patent. Mild atherosclerotic calcifications. Lymph nodes: Stable enlarged left pelvic sidewall lymph node measuring 1.7 x 1.1 cm. Peritoneum: No free fluid or pneumoperitoneum. No drainable fluid collections. Abdominal wall/soft tissues: Unremarkable. Bones: No acute osseous abnormalities. Mild multilevel degenerative changes of the thoracolumbar spine. IMPRESSION: 1. Interval decrease in the size of a complex multi-septated collection in the prostate, now measuring 1.4 x 1.3 x 3.9 cm, previously 5.3 x 6.6 x 5.0 cm. This is again compatible with a prostatic abscess. 2. Stable left pelvic sidewall lymph node. Underlying prostate neoplasm is again difficult to exclude. Correlation with PSA is again advised. 3. Stable nonobstructing urinary calculus measuring 3 mm within the distal left ureter. 4. Cholelithiasis without evidence of acute cholecystitis. Please note that all CT scans at this facility use dose modulation, iterative reconstruction, and/or weight-based dosing when appropriate to reduce radiation dose to as low as reasonably achievable. Dictated by Kevin Yates MD @ 02/05/2024 9:55:10 PM (Electronically Signed)
--- OUTSIDE RECORDS SUMMARY | 2024-02-05 19:55 | XMS_ITS | Clinical Summary ---
Author Organization [facility] [facility] Address [place], [place] [address] Care Team Providers Care Paper Feeder Name Role Phone Opal Richards DO Primary Care Provider [phone] Allergies Active Allergy Reactions Criticality Noted Date Comments Iodine Hives 10/08/2019 Medications Medication Sig Dispensed Refills Start Date End Date Status Silgy-7-PSD-EPA-Fi sh Oil 1,000 mg (120 mg-180 mg) [...] with a meal. 90 Tablet 3 03/07/20 Active spironolactone (ALDACTONE) 50 mg tabletIndications: HTN (hypertension) Take 1 Tablet (50 mg) by mouth every morning. 100 Tablet 3 04/23/20 Active blood sugar diagnostic (Accu-Chek Guide test strips) stripIndications:U ncontrolled type 2 diabetes mellitus with hyperglycemia (HC) TEST 4 TIMES PER DAY DIRECTED 400 Each 3 05/22/20 23 Active Dexcom G7 Sensor for continuous blood glucose monitor (CGM)Indications:U ncontrolled type 2 diabetes mellitus with hyperglycemia (HC) To be used to read blood sugars, follow purchaser directions. 9 Each 3 06/21/20 Active Dexcom G7 Plant Protection Supervisor for continuous blood glucose monitor (CGM)Indications:U ncontrolled type 2 diabetes mellitus with hyperglycemia (HC) To be used to read blood sugars follow purchaser directions. 1 Each 06/21/20 23 Active acetaminophen [...] daily. 36 mL 10/25/19 24 Active Insulin [place], Disposable, (Novofine 32) 32 gauge x 1/4 [...] times daily. 80 Tablet 01/23/20 24 Active gabapentin (NEURONTIN) 300 mg capsuleIndications :Urethral pain Take 1 Capsule (300 mg) by mouth two times daily for 15 days. 30 Capsule 01/25/20 24 024 Active cetirizine (ZYRTEC) 10 mg tabletIndications: Environmental allergies Take 1 Tablet (10 mg) by mouth once daily. 30 Tablet 01/25/20 24 Active warfarin (COUMADIN) 3 mg tabletIndications: Right atrial thrombus,Patent foramen ovale,Anticoagulat ion monitoring, INR range 2-3,Anticoagulant long-term use Take by mouth 9 mg (3 mg x 3) every Mon; 6 mg (3 mg x 2) all other days in the evening OR as directed 01/30/20 24 Active metFORMIN (GLUCOPHAGE XR) 500 mg Extended-Release tabletIndications: Uncontrolled type 2 diabetes mellitus with hyperglycemia (HC) Take 2 Tablets (1,000 mg) by mouth two times daily with meals. 120 Tablet 02/02/20 24 Active aspirin 325 mg tablet Take 325 mg by mouth. 024 Discontinued(Ph armacist change per medication history (E-cancel not sent)) Vit B Comp & C-Vit E-FA-Kaitlin-Zn 0.4 mg tab Take 1 Tablet by mouth once daily. 024 Discontinued(Ph armacist change per medication history (E-cancel not sent)) bd insulin pen needle uf mini 31 gauge x /16Indications:U ncontrolled type 2 diabetes mellitus with hyperglycemia (HC) TO BE USED WITH VICTOZA ONCE DAILY 100 Each 3 06/01/20 22 024 Discontinued(Ph armacist change per medication history (E-cancel not sent)) metFORMIN (GLUCOPHAGE XR) 500 mg Extended-Release tabletIndications: Uncontrolled type 2 diabetes mellitus with hyperglycemia (HC) Take 2 Tablets (1,000 mg) by mouth two times daily with meals. 360 Tablet 3 03/08/20 23 024 Discontinued(*A vailability/For mulary change/Cost of medication) icosapent ethyL (Vascepa) 1 gram capsuleIndications :Hypertriglyceride [...] every 12 hours. 8 mL 1 07/19/20 024 Discontinued(*M edication adjustment) Lantus Solostar U-100 Insulin 100 unit/mL (3 mL) penIndications:Unc ontrolled type 2 diabetes mellitus with hyperglycemia (HC) Inject 72 units subcutaneous before bedtime. 90 mL 12/05/19 024 Discontinued(*M edication adjustment) warfarin (COUMADIN) 3 [...] range 2-3,Anticoagulant long-term use Take by mouth 01/13: 6 mg; 01/22: Hold; 01/23: Hold; 01/24: [...] dose) of 01-27-2024 5 mL 01/25/20 24 Discontinued(*M edication adjustment) enoxaparin (LOVENOX) 100 mg/mL [...] dose) of 01-27-2024 7 mL 01/25/20 24 Discontinued(*M edication adjustment) enoxaparin (LOVENOX) 120 mg/0.8 [...] 60 Tablet 1 01/22/20 24 024 Discontinued enoxaparin (LOVENOX) 120 mg/0.8 mL injectionIndicatio ns:Pre-op examination,Right atrial thrombus,Patent foramen ovale,Anticoagulat ion monitoring, INR range 2-3 Inject 115 mg subcutaneous every 12 hours. Waste a small amount then Inject 115 mg (about 0.77 mL) subcutaneous every 12 hours until your INR is in therapeutic range. 11.2 mL 01/25/20 24 024 Discontinued(Ot her - add note to specify (E-cancel not sent)) warfarin (COUMADIN) 3 mg tabletIndications: Right atrial thrombus,Patent foramen ovale,Anticoagulat ion monitoring, INR range 2-3,Anticoagulant long-term use Take 6mg daily until your next INR check on 01/24, then take per further instructions based on INR. 01/23/20 24 024 Discontinued(Re order (E-cancel not sent)) Active Problems Problem Noted Date Diagnosed Date [...] Encounters Date Type Department Care Team Description 02/01/[address] [address] Radha Prieto MD Refill Request (Metformin) 01/31/[address] [address] Opal Richards, DO Results 01/30/[address] [address] Opal Richards, Anticoagulation (Provider review) 01/30/2024 Anticoagulation (warfarin) [address] [address] 1, [facility]ticoagulation 01/29/2024 11:30 AM CDT Orders Only [address] [address] Lab[facility] 01/29/2024 Travel 01/26/[address] [address] Opal Richards, DO Anticoagulation (Unable to contact) 01/25/2024 11:25 AM CDT Office Visit [address] [address] Arben Sheets DO Hospital F/U (DOD 01/22/2024 - catheter is giving him pain ) 01/25/2024 Travel 01/24/2024 Anticoagulation (warfarin) [address] [address] 1, [facility] Anticoagulation (Chart update - Colonoscopy cancelled - Post hospital) 01/24/2024 Patient Outreach [address] [address] Rabia Rodrigues, RN Primary RN Care Management; Hospital F/U (LACE 56) 01/23/2024 Orders Only [facility] [address] [place] [phone] Rony Larson MD <No scans attached> 01/22/2024 Telephone [facility] [[email or web address] [address] [place] [address] Demetrio Lopez MD Appointment 01/19/2024 11:10 AM CDT Anesthesia Event [facility] [address] [place] [address] Robi White MD PascoeArvin Ortez, [facility] 01/19/2024 10:45 AM CDT - 01/19/2024 12:49 PM CDT Surgery [facility] [address] [place] [address] Glen Chavez MD CYSTOSCOPY, TRANSURETHRAL resection of prostate, UNROOFING OF PROSTATE ABSCESS, dilation of uretheral stricture 01/17/2024 5:08 AM CDT - 01/23/2024 1:39 PM CDT Hospital Encounter [facility] [address] [place] [address] [facility], [facility] Hospitalists [facility], MD Johnny Lane, DO Amparo Bird, Sunni Young MD Sleep apnea, unspecified type (Primary Dx); Prostate abscess; Pre-op examination; Right atrial thrombus; Patent foramen ovale; Anticoagulation monitoring, INR range 2-3; Anticoagulant long-term use Discharge Disposition: Home Self Care 01/16/2024 Telephone [facility] [[email or web address]] [address] [place] [address] Opal Richards, GI update 01/15/2024 Telephone [facility] [[email or web address]] [address] [place] [address] Opal Richards, Anticoagulation (BPA-Lovenox) 01/15/2024 Telephone [facility] [[email or web address]] [address] [place] [address] Opal Richards, Medication Management (enoxaparin (LOVENOX) 100 mg/mL injection) 01/15/2024 Telephone [facility] [[email or web address]] [address] [facility] [place] [address] Opal Richards, Medication Management (enoxaparin (LOVENOX) 100 mg/mL injection) 01/15/2024 Orders Only [facility] [address] [facility] [place] [address] Opal Richards, DO <No scans attached> 01/15/2024 Telephone [facility] [[email or web address]] [address] [place] [address] Opal Richards, Anticoagulation (BPA- LOVENOX) 01/15/2024 Telephone [facility] [[email or web address]] [address] [place] [address] Opal Richards, Results 01/14/2024 10:25 AM CDT Preop Visit [facility] [[email or web address]] [address] [place] [address] Opal Richards, Pre-Op Exam (Pre op, [facility], dr. lopez 01/27) 01/14/2024 Anticoagulation (warfarin) [facility] [[email or web address]] [address] [place] [address] , [facility] Anticoagulation 01/14/[address] [address] Opal Richards, Follow Up 01/14/[address] [address] Opal Richards, Results 01/14/2024 Travel 01/04/2024 Orders Only [facility] [[email or web address]] [address] [place] [address] Opal Richards, DO <No scans attached> 01/03/2024 11:00 AM CDT Orders Only [address] [address] [facility] 01/03/2024 Anticoagulation (warfarin) [facility] [[email or web address] [address] [facility] [address] [facility], [facility] 01/03/2024 Travel 12/20/2023 2:15 PM CDT Orders Only [facility] [[email or web address]] [address] [facility] [address] [facility] 12/20/2023 Anticoagulation (warfarin) [facility] [[email or web address]] [address] [facility] [place] [place] [address] 1, [facility] 12/20/2023 Travel 12/13/2023 11:00 AM CDT Orders Only [facility] [[email or web address]] [address] [facility] [address] [facility] 12/13/2023 Anticoagulation (warfarin) [facility] [[email or web address]] [address] [facility] [address] 1, [facility] 12/13/2023 Travel 12/06/2023 Telephone [facility] [[email or web address]] [address] [facility] [place] [address] Opal Richards, Medication Management (warfarin (COUMADIN) 3 mg tablet) 12/05/2023 9:35 AM CDT Office Visit [facility] [[email or web address]] [address] [facility] [place] [address] Opal Richards, Diabetes 12/05/2023 9:15 AM CDT Orders Only [facility] [[email or web address]] [address] [facility] [place] [place] [address] Lab[facility] 12/05/2023 Anticoagulation (warfarin) [facility] [[email or web address]] [address] [facility] [place] [address] 1, [facility] 12/05/2023 Travel 11/28/2023 Telephone [facility] [[email or web address]] [address] [facility] [place] [address] Opal Richards, Diabetes 11/07/2023 Refill [facility] [[email or web address]] [address] [facility] [address] Opal Richards DO Refill Request (LANTUS SOLOSTAR 100UNIT/ML) from Last 3 Months Immunizations Name Administration [...] Care Team (Late st Contact Info) Description 02/26/2024 11:00 AM CDT Office Visit [facility] [address] [address] [place] [address] [place] [address] Health Maintenance Due Date Last Done Comments [...] Procedure Name Priority Date/Time Associated Diagnosis Comments PLATELET COUNT STAT 01/29/2024 11:47 AM CDT Right atrial thrombus Patent foramen ovale Anticoagulation monitoring, INR range 2-3 CREATININE Routine 01/29/2024 11:47 AM CDT Prostate abscess C-REACTIVE PROTEIN Routine 01/29/2024 11:47 AM CDT CRP elevated POTASSIUM Routine 01/29/2024 11:47 AM CDT Serum potassium elevated PROTIME-INR STAT 01/29/2024 11:47 AM CDT Right atrial thrombus Patent foramen ovale Anticoagulation monitoring, INR range 2-3 SCAN CORRESP-EKG RESULTS 01/23/2024 2:27 PM CDT [...] GLUCOSE METER Timed 01/19/2024 12:55 PM CDT PATH TISSUE EXAM Today 01/19/2024 12:13 PM CDT GLUCOSE METER Timed 01/19/2024 11:51 [...] type 2 diabetes mellitus with hyperglycemia (HC) US ABD AORTA SCREENING Routine 07/02/2023 9:12 [...] Recently Relevant to Health Maintenance Results * PLATELET COUNT (01/29/2024 11:47 AM CDT) Only the most recent of5 resultswithin the time period is included. [facility] PLATELET COUNT 324 140 - 440 thou/cu mm 01/29/2024 11:56 AM CDT [facility] MPV 10.6 6.5 - 11.0 fL 01/29/2024 11:56 AM CDT [facility] Blood BLOOD SPECIMEN / Unknown Butterfly / Unknown 01/29/2024 11:47 AM CDT 01/29/2024 11:48 AM CDT Narrative [facility] - 01/29/2024 11:56 AM CDT MD to monitor if out of range, to monitor for Heparin-Induced Thrombocytopenia while on lovenox. Opal Richards DO HEMATOLOGY Performing Organization Address City/[facility]/ZIP Co de Phone Number [facility] [address] [place] [address], [place] [phone] * (ABNORMAL) POTASSIUM (01/29/2024 11:47 AM CDT) Only the most recent of4 resultswithin the time period is included. [facility] POTASSIUM 5.4(H) 3.5 - 5.1 mmol/L 01/30/2024 2:11 AM CDT [facility] Blood BLOOD SPECIMEN / Unknown Butterfly / Unknown 01/29/2024 11:47 AM CDT 01/29/2024 11:48 AM CDT Opal Richards DO CHEMISTRY Performing Organization Address City/[facility]/ZIP Co de Phone Number [facility] [address] [place] [address], * (ABNORMAL) CREATININE (01/29/2024 11:47 AM CDT) Only the most recent of6 resultswithin the time period is included. [facility] eGFR 56(L) >90 mL/min/1.7 3m2 01/30/2024 2:11 AM CDT [facility] Comment:As of 2021, eG FR is calculated by the CKD-EPI creatinine equation without race adjustment. ??eGFR can be influenced by muscle mass, exercise, and diet. ??The reported eGFR is an estimation only and is only applicable if the renal function is stable. CREATININE 1.38(H) 0.70 - 1.20 mg/dL 01/30/2024 2:11 AM CDT [facility] Blood BLOOD SPECIMEN / Unknown Butterfly / Unknown 01/29/2024 11:47 AM CDT 01/29/2024 11:48 AM CDT Rony Larson MD CHEMISTRY Performing Organization Address [facility] Co de Phone Number [facility] [address] [address], [place] * (ABNORMAL) C-REACTIVE PROTEIN (01/29/2024 11:47 AM CDT) Only the most recent of2 resultswithin the time period is included. C-REACTIVE PROTEIN 0.5(H) <0.5 mg/dL 01/30/2024 2:11 AM CDT [facility] Blood BLOOD SPECIMEN / Unknown Butterfly / Unknown 01/29/2024 11:47 AM CDT 01/29/2024 11:48 AM CDT Opal Richards DO CHEMISTRY Performing Organization Address [facility]/ZIP Co de Phone Number [facility] [address] [place] [address], [place] * (ABNORMAL) PROTIME-INR (01/29/2024 11:47 AM CDT) Only the most recent of11 resultswithin the time period is included. INR 1.9(H) <1.3 01/29/2024 9:35 PM CDT [facility] PROTIME 21.3(H) 10.3 - 12.3 sec 01/29/2024 9:35 PM CDT [facility] Blood BLOOD SPECIMEN / Unknown Butterfly / Unknown 01/29/2024 11:47 AM CDT 01/29/2024 11:48 AM CDT Narrative [facility] - 01/29/2024 9:35 PM CDT ?Therapeutic Range 2.0-3.0 for most [...] is on UFH. Opal Richards DO HEMATOLOGY [facility] [address] [place] [address], * SCAN CORRESP-LABORATORY RESULTS (01/23/2024 2:27 PM [...] of28 resultswithin the time period is included. [facility] Signature GLUCOSE METER 280(H) 65 - 100 mg/dL 01/23/2024 7:02 AM CDT [facility] Blood BLOOD SPECIMEN / Unknown 01/23/2024 7:01 AM CDT 01/23/2024 7:02 AM CDT Sunni Christensen MD CHEMISTRY Performing Organization Address [facility] Co de Phone Number [facility] [address] [place] [address], * (ABNORMAL) HEMOGLOBIN (01/23/2024 4:31 AM CDT) Only the most recent of7 resultswithin the time period is included. HEMOGLOBIN 10.3(L) 13.5 - 17.5 g/dL 01/23/2024 5:10 AM CDT [facility] MCV 84 80 - 100 fL 01/23/2024 5:10 AM CDT [facility] Blood BLOOD SPECIMEN / Unknown Venipuncture / Unknown 01/23/2024 4:31 AM CDT 01/23/2024 5:05 AM CDT Narrative [facility] - 01/23/2024 5:10 AM CDT Every morning while on IV heparin. Every morning while on IV heparin. Necessary every morning while on IV heparin. Michelle Turner DO HEMATOLOGY Performing Organization Address [facility] de Phone Number [facility] [address] [place] [address], [place] * (ABNORMAL) HEMATOCRIT (01/23/2024 4:31 AM CDT) Only the most recent of4 resultswithin the time period is included. HEMATOCRIT 31.9(L) 37.0 - 53.0 % 01/23/2024 5:10 AM CDT [facility] Blood BLOOD SPECIMEN / Unknown Venipuncture / Unknown 01/23/2024 4:31 AM CDT 01/23/2024 5:05 AM CDT Narrative [facility] - 01/23/2024 5:10 AM CDT Every morning while on IV heparin. Every morning while on IV heparin. Necessary every morning while on IV heparin. Michelle Turner DO HEMATOLOGY Performing Organization Address City/[facility]/ZIP Co de Phone Number [facility] [address] [place] [address], [place] * Sodium AM (01/22/2024 5:46 AM CDT) SODIUM 137 136 - 145 mmol/L 01/22/2024 6:27 AM CDT [facility] Blood BLOOD SPECIMEN / Unknown Venipuncture / Unknown 01/22/2024 5:46 AM CDT 01/22/2024 5:58 AM CDT Sunni Christensen MD CHEMISTRY Performing Organization Address [facility] Phone Number [facility] [address] [place] [address], [place] * VANCOMYCIN TROUGH (01/21/2024 4:09 PM CDT) Only the most recent of2 resultswithin the time period is included. VANCOMYCIN,TRO UGH 12.1 7.0 - 20.0 ug/mL 01/21/2024 4:54 PM CDT [facility] DATE OF LAST DOSE,TROUGH 01/21/2024 01/21/2024 4:54 PM CDT [facility] TIME OF LAST DOSE,TROUGH 4:08 AM 01/21/2024 4:54 PM CDT [facility] Blood BLOOD SPECIMEN / Unknown Venipuncture / Unknown 01/21/2024 4:09 PM CDT 01/21/2024 4:16 PM CDT Sunni Christensen MD CHEMISTRY Performing Organization Address [facility] Co de Phone Number [facility] [address] [address], [place] * (ABNORMAL) Electrolyte panel AM (01/21/2024 6:21 AM CDT) SODIUM 136 136 - 145 mmol/L 01/21/2024 7:06 AM CDT [facility] POTASSIUM 3.8 3.5 - 5.1 mmol/L 01/21/2024 7:06 AM CDT [facility] CHLORIDE 106 98 - 107 mmol/L 01/21/2024 7:06 AM CDT [facility] CO2,TOTAL 20(L) 22 - 29 mmol/L 01/21/2024 7:06 AM CDT [facility] ANION GAP 10 5 - 18 01/21/2024 7:06 AM CDT [facility] Blood BLOOD SPECIMEN / Unknown Venipuncture / Unknown 01/21/2024 6:21 AM CDT 01/21/2024 6:38 AM CDT Michelle Turner DO CHEMISTRY Performing Organization Address [facility] Co de Phone Number [facility] [address] [place] [address], * SCAN-SLEEP STUDY (01/21/2024 12:00 AM CDT) Narrative 01/21/2024 12:00 AM CDT Ordered by an unspecified provider. Other Clinical Staff OTHER * APTT (01/20/2024 9:50 PM CDT) Only the most recent of2 resultswithin the time period is included. APTT 31 28 - 36 sec 01/20/2024 10:14 PM CDT [facility] Blood BLOOD SPECIMEN / Unknown Venipuncture / Unknown 01/20/2024 9:50 PM CDT 01/20/2024 10:02 PM CDT Narrative [facility] - 01/20/2024 10:14 PM CDT Therapeutic Range: 57-87 seconds Sunni Christensen MD HEMATOLOGY Performing Organization Address [facility]/ZIP Co de Phone Number [facility] [address] [place] [address], * BUN (01/20/2024 11:39 AM CDT) BUN 16 8 - 23 mg/dL 01/20/2024 1:13 PM CDT [facility] Blood BLOOD SPECIMEN / Unknown Venipuncture / Unknown 01/20/2024 11:39 AM CDT 01/20/2024 12:24 PM CDT Michelle Turner DO CHEMISTRY [facility] [address] [place] [address], * (ABNORMAL) BASIC METABOLIC PANEL (01/20/2024 3:00 AM CDT) Only the most recent of4 resultswithin the time period is included. SODIUM 136 136 - 145 mmol/L 01/20/2024 3:53 AM CDT [facility] POTASSIUM 4.4 3.5 - 5.1 mmol/L 01/20/2024 3:53 AM T [facility] CHLORIDE 102 98 - 107 mmol/L 01/20/2024 3:53 AM CDT [facility] CO2,TOTAL 22 22 - 29 mmol/L 01/20/2024 3:53 AM T [facility] ANION GAP 12 5 - 18 01/20/2024 3:53 AM T [facility] GLUCOSE 244(H) 70 - 99 mg/dL 01/20/2024 3:53 AM T [facility] CALCIUM 9.1 8.8 - 10.2 mg/dL 01/20/2024 3:53 AM CDT [facility] BUN 16 8 - 23 mg/dL 01/20/2024 3:53 AM T [facility] CREATININE 1.21(H) 0.70 - 1.20 mg/dL 01/20/2024 3:53 AM T [facility] BUN/CREAT RATIO 13 10 - 20 3:53 [address] [facility] eGFR 66(L) >90 mL/min/1.7 3m2 01/20/2024 3:53 AM CDT [facility] Comment:As of 2021, eG FR is calculated by the CKD-EPI creatinine equation without race adjustment. ??eGFR can be influenced by muscle mass, exercise, and diet. ??The reported eGFR is an estimation only and is only applicable if the renal function is stable. Blood BLOOD SPECIMEN / Unknown Butterfly / Unknown 01/20/2024 3:00 AM CDT 01/20/2024 3:24 AM CDT Michelle Turner DO CHEMISTRY [facility] [address] [place] [address], * PATH TISSUE EXAM (01/19/2024 12:13 PM CDT) Case Report Pathology Report ?Case: [id number] ? Authorizing Provider: ??Glen Chavez ? Collected: ? 01/19/2024 1213 ? MD Alex ? Ordering Location: ? [facility] ?Received: ?01/21/2024 0754 ? Hospital ? Pathologist: ? Silvio Sandoval MD ? Specimen: ?Prostate, Prostate chips ? 01/31/2024 3:16 PM CDT [facility] Final Diagnosis PROSTATE, TRANSURETHRAL RESECTION: 1. Nodular hyperplasia 2. Marked focal chronic active prostatitis 3. Rare foci of dense B-cell aggregates; not conclusive for B-cell lymphoma in this sampling 4. See comment 01/31/2024 3:16 PM CDT [facility] Comment Focal marked chronic active inflammation is notable in this case which prompted us to carefully consider the possibility of focal involvement by B-cell lymphoma. ??As no fresh tissue was available for flow cytometry, an extensive panel of immunostains was performed, which highlights a mixed chronic active inflammatory population. In addition, rare foci of densely packed B cells are seen which are atypical but not conclusive for lymphoma. One particular suspicious lymphoid focus in paraffin block A5 will be excised from the paraffin block and submitted for molecular analysis for B-cell gene rearrangements. ??Amended report to follow. ??In the meantime, careful clinical correlation is advised, in particular as to whether the patient has any suspicious regional lymphadenopathy, which might prompt additional biopsy investigation. Dr. Rachael Barajas discussed preliminary result with Dr. Glen Chavez on 01/24/24. Dr. Sandoval discussed the final results with Dr. Glen Chavez on 01/30/24. Case seen in consultation Suleiman Lazar, and Karl. 01/31/2024 3:16 PM CDT [email or web address] Clinical Information Prostate abscess 01/31/2024 3:16 PM CDT [facility] Gross Description A) Received in formalin, labeled with the patient's name and prostate chips, is a 6 g, 5.5 x 4 x 1.5 cm aggregate of alvarez-pink rubbery cauterized tissues. ?? Specimen is entirely submitted in 6 cassettes. Tissue is placed in formalin at 08: 00 on 01/21/2024. MIGUELITO 01/21/2024 01/31/2024 3:[address] [facility] Microscopic Description The final diagnosis is based on microscopic examination of appropriate sections of all specimens. Immunostains were performed on block A2 and results follow: ??CD3: ?Multifocal dense positive T-cell population ??CD20: ?? Highlights multifocal dense B-cell clusters ??CD79a: Highlights plasma cells and scattered dense B cell foci ??CD5: ?No aberrant staining ??CD10: ?? No conclusive aberrant staining ??CD21: ?? No follicle formation ??CD30: ?? Consistent with chronic inflammation ??BCL1: ?? Negative ??BCL2: ?? Highlights plasma cells and T cells ??BCL6: ?? No aberrant staining ??MUM1: ?? Predominantly stains plasma cells ??CD79a: Predominantly stains plasma cells ??PAX5: ?? Minimal staining ??ALK1: Negative ??TP53: ?? No aberrant overexpression seen ??CD138: Highlights abundant plasma cells ??Ki67: Predominantly highlights areas of active inflammation ??EBV in situ: Negative ??[place]: Obscured due to high background ??Lambda: Unobscured due to high background Additional IHC stains on block A5: CD3: Highlights abundant T lymphocytes CD20: Highlights dense foci of B cells, with one in particular which will be dissected from the paraffin block and submitted for B-cell gene rearrangement analysis CD138: Highlights foci of dense plasmacytic inflammation Cytokeratin cocktail: Highlights normal epithelial structures [place]: Stains majority of plasma cells (polytypic pattern) Lambda: Stains a minority of plasma cells (polytypic pattern) 01/31/2024 3:[address] [facility]- ENTRAL LABORATORY Additional Information Interpreted at [facility] [address] [facility] [address] [address] 01/31/2024 3:16 PM CDT [facility]- ENTRAL LABORATORY Tissue SPECIMEN FROM PROSTATE / Unknown 01/19/2024 12:13 PM CDT 01/21/2024 7:54 AM CDT Glen Chavez MD PATHOLOGY/ CYTOLOGY [facility]-CENTRAL LAB[facility]ORY [address] [place] [address], * HCHG TUBE PR1, HCHG INSTRUMENT DISP [...] 11.0 thou/cu mm 01/18/2024 6:47 AM CDT [facility] TR[facility] RED BLOOD COUNT 3.91(L) 4.30 - 5.90 mil/cu mm 01/18/2024 6:47 AM CDT [facility] HEMOGLOBIN 11.0(L) 13.5 - 17.5 g/dL 01/18/2024 6:47 AM CDT [facility] HEMATOCRIT 33.5(L) 37.0 - 53.0 % 01/18/2024 6:47 AM CDT [facility] MCV 86 80 - 100 fL 01/18/2024 6:47 AM CDT [facility] MCH 28.1 26.0 - 34.0 pg 01/18/2024 6:47 AM CDT [facility] MCHC 32.8 32.0 - 36.0 g/dL 01/18/2024 6:47 AM CDT [facility] RDW 13.7 11.5 - 15.5 % 01/18/2024 6:47 AM CDT [facility] PLATELET COUNT 228 140 - 440 thou/cu mm 01/18/2024 6:47 AM CDT [facility] MPV 10.0 6.5 - 11.0 fL 01/18/2024 6:47 AM CDT [facility] NRBC 0.0 % 01/18/2024 6:47 AM CDT [facility] ABS NRBC 0.0 thou /cu mm 01/18/2024 6:47 AM CDT [facility] Blood BLOOD SPECIMEN / Unknown Venipuncture / Unknown 01/18/2024 6:16 AM CDT 01/18/2024 6:32 AM CDT Michelle Turner DO HEMATOLOGY [facility] [address] [place] [address], [place] * (ABNORMAL) MRSA/SA PCR (01/17/2024 7:28 PM CDT) MRSA DNA PCR Positive( A) Negative 01/17/2024 10:52 PM CDT [facility] STAPHYLOCOCCUS AUREUS PCR Positive( A) Negative 01/17/2024 10:52 PM CDT [facility] Other SPECIMEN FROM INTERNAL NOSE / Unknown Non-Blood / Unknown 01/17/2024 7:28 PM CDT 01/17/2024 7:41 PM CDT Narrative [facility] - 01/17/2024 10:52 PM CDT A positive test result does not necessarily indicate the presence of viable organisms. It is, however, presumptive for the presence of Methicillin Resistant Staphylococcus aureus (MRSA) or Staphylococcus aureus. Michelle Turner DO MICROBIOLOGY Performing Organization Address [facility] Co de Phone Number [facility] [address] [place] [address], * (ABNORMAL) WHITE BLOOD COUNT (01/17/2024 1:18 PM CDT) WHITE BLOOD COUNT 17.8(H) 4.5 - 11.0 thou/cu mm 01/17/2024 1:50 PM CDT [facility] NRBC 0.0 % 01/17/2024 1:50 PM CDT [facility] ABS NRBC 0.0 thou /cu mm 01/17/2024 1:50 PM CDT [facility] Blood BLOOD SPECIMEN / Unknown Butterfly / Unknown 01/17/2024 1:18 PM CDT 01/17/2024 1:30 PM CDT Michelle Turner DO HEMATOLOGY Performing Organization Address City/[facility] Co de Phone Number [facility] [address] [address], * SCAN-CARDIAC STRIP (01/17/2024 12:00 AM CDT) Narrative 01/17/2024 12:00 AM CDT Ordered by an unspecified provider. Other Clinical Staff OTHER * (ABNORMAL) LIVER PANEL (HEPATIC FUNCTION PANEL) (01/14/2024 11:52 AM CDT) ALBUMIN 4.4 4.0 - 4.9 g/dL 01/14/2024 10:44 PM CDT [facility] PROTEIN,TOTAL 8.7(H) 6.0 - 8.0 g/dL 01/14/2024 10:44 PM CDT [facility] BILIRUBIN,TOTAL 0.4 0.0 - 1.2 mg/dL 01/14/2024 10:44 PM CDT [facility] BILIRUBIN,DIRECT <0.2 0.0 - 0.3 mg/dL 01/14/2024 10:44 PM CDT [facility] BILIRUBIN,INDIRE CT 01/14/2024 10:44 PM CDT [facility] Comment:Unable to calculate, Direct Bili <0.2 ALK PHOSPHATASE 76 40 - 129 IU/L 01/14/2024 10:44 PM CDT [facility] ALT (SGPT) 31 10 - 50 IU/L 01/14/2024 10:44 PM CDT [facility] AST (SGOT) 35 10 - 50 IU/L 01/14/2024 10:44 PM CDT [facility] Blood BLOOD SPECIMEN / Unknown Butterfly / Unknown 01/14/2024 11:52 AM CDT 01/14/2024 11:53 AM CDT Opal Richards DO CHEMISTRY [facility] [address] [place] [address], * MAGNESIUM (01/14/2024 10:40 AM CDT) MAGNESIUM 1.6 1.6 - 2.4 mg/dL 01/14/2024 6:22 PM CDT [facility] Blood BLOOD SPECIMEN / Unknown Venipuncture / Unknown 01/14/2024 10:40 AM CDT 01/14/2024 10:40 AM CDT Opal Richards DO CHEMISTRY Performing Organization Address City/[facility]/ZIP Co de Phone Number [facility] [address] [place] [address], [place] * (ABNORMAL) IRON PLUS IRON BINDING CAP (01/03/2024 11:04 AM CDT) IRON 48(L) 61 - 157 ug/dL 01/03/2024 10:03 PM CDT [facility] UIBC (UNSATURATED) 302 112 - 347 ug/dL 01/03/2024 10:03 PM CDT [facility] IRON BINDING CAPACITY 350 250 - 400 ug/dL 01/03/2024 10:03 PM CDT [facility] IRON,% SATURATION 14 14 - 50 % 01/03/2024 10:03 PM CDT [facility] Blood BLOOD SPECIMEN / Unknown Butterfly / Unknown 01/03/2024 11:04 AM CDT 01/03/2024 11:04 AM CDT Opal Richards DO CHEMISTRY Performing Organization Address [facility] Co de Phone Number [facility] [address] [place] [address], [place] * FERRITIN (01/03/2024 11:04 AM CDT) FERRITIN 311.0 30.0 - 400.0 ng/mL 01/03/2024 10:03 PM CDT [facility] Blood BLOOD SPECIMEN / Unknown Butterfly / Unknown 01/03/2024 11:04 AM CDT 01/03/2024 11:04 AM CDT Opal Richards DO CHEMISTRY Performing Organization Address City/[facility]/ZIP Co de Phone Number [facility] [address] [place] [address], [place] * (ABNORMAL) INR,POCT (12/20/2023 2:25 PM CDT) Only the most recent of3 resultswithin the time period is included. INR 2.2(H) <1.3 12/20/2023 2:28 PM CDT [facility] Blood BLOOD SPECIMEN / Unknown 12/20/2023 2:25 PM CDT 12/20/2023 2:28 PM CDT Narrative [facility] - 12/20/2023 2:28 PM CDT ?Therapeutic Range 2.0-3.0 for most anticoagulated patients 2.5-3.5 or 4.0 for high risk patients Opal Richards DO LABORATORY Performing Organization Address City/State/[facility] Co de Phone Number [facility] [address] [place] [address], * (ABNORMAL) HEMOGLOBIN A1C MONITORING (POCT) (12/05/2023 9:20 AM CDT) HEMOGLOBIN A1C MONITORING (POCT) 12.5(H) <=6.4 % 12/05/2023 9:46 AM CDT [facility] Blood BLOOD SPECIMEN / Unknown Capillary / Unknown 12/05/2023 9:20 AM CDT 12/05/2023 9:24 AM CDT Narrative [facility] - 12/05/2023 9:46 AM CDT [...] Anemias, Splenectomy ? Opal Richards DO CHEMISTRY [facility] [place] [address], * US ABD AORTA SCREENING [[id number]] (07/02/2023 9:12 AM CDT) Anatomical Region Laterality [...] - 199 mg/dL 06/20/2023 7:00 AM CDT [facility] Comment: Cholesterol, Total Reference Ranges Desirable <200 mg/dL Borderline 200-239 mg/dL High >=240 mg/dL TRIGLYCERIDES 530(H) <150 mg/dL 06/20/2023 7:[address] [facility] HDL CHOLESTEROL 30(L) >40 mg/dL 3 7:00 AM T [facility] NON-HDL CHOLESTEROL 129 <145 mg/dl 06/20/2023 7:00 AM CDT [facility] CHOL/HDL RATIO 5.30(H) <4.50 06/20/2023 7:00 AM CDT [facility] LDL CHOLESTEROL 3 7:00 AM T [facility] Comment:Invalid LDL when Tri g >400. VLDL CHOLESTEROL COMMENT 06/20/2023 7:00 AM T [facility] Comment:Unable to calculate VLDL. PROVIDER ORDERED STATUS RANDOM 06/20/2023 7:00 AM T [facility] Blood BLOOD SPECIMEN / Unknown Venipuncture / Unknown 06/19/2023 11:13 AM CDT 06/19/2023 11:15 AM CDT Opal Richards DO CHEMISTRY [facility]-C[facility]AL LABORATORY [address] [place] [address], * ANTI HCV (02/27/2020 2:02 PM CDT) HEPATITIS C ANTIBODY Non-React gennaro Non-React gennaro 02/27/2020 8:[address] [facility] Comment:Antibodies to HCV no t detected; does not exclude the possibility of exposure to HCV. Blood BLOOD SPECIMEN / Unknown Butterfly / Unknown 02/27/2020 2:02 PM CDT 02/27/2020 2:03 PM CDT Radha Prieto MD SEND OUTS [facility]AL LAB[facility]ATORY 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
--- NOTE | 2024-02-05 20:13 | ED_ITS ---
HPI - General Adult General Chief complaint: Unspecified Complaint, Adult Stated complaint: Blood in urine, weak Time Seen by Provider: 02/05/24 19:27 Source: patient Mode of arrival: ambulatory Limitations: no limitations History of Present Illness HPI narrative: 68-year-old male coming in today complaining of generalized not feeling well. Patient states that on 01/18 he had a prostate abscess drained at [facility]. Approximately One week ago he had his Rodriguez removed and he has been doing well except for today woke up but he did not feel good. He states that he feels weak, fatigued, shaky. He had chills earlier today. He denies any measured fevers. He denies vomiting but does feel slightly nauseated. He had an episode of diarrhea earlier today. He also states that he has been leaking urine ever since the Rodriguez was removed but he feels like it is getting worse. He wears a depends that he switches every 2 hours or so. When he switches his depends he does try to urinate and generally he has good urine output, however, in the last half day he states that his urine output when he goes to urinate is minimal. He states that he had an episode where he saw blood in his urine but that has since cleared up. Patient is taking lisinopril, spironolactone and daily potassium supplements among his other medications. He is also on Bactrim for his prostate infection Related Data Home Medications ?Medication ?Instructions ?Recorded ?Confirmed Victoza 2-Isaac 1.8 mg SUBQ-VAC DAILY 09/04/23 02/05/24 hydrochlorothiazide 25 mg tablet 25 mg PO BID 09/04/23 02/05/24 insulin glargine 100 unit/mL (3 unit subcut 09/04/23 mL) subcutaneous pen (Lantus Solostar U-100 Insulin) lisinopril 40 mg tablet 40 mg PO DAILY 09/04/23 02/05/24 metformin 500 mg tablet,extended 1,000 mg PO BID 09/04/23 02/05/24 release 24 hr metoprolol tartrate 100 mg tablet 100 mg PO BID 09/04/23 02/05/24 potassium chloride 20 mEq 20 meq PO DAILY 09/04/23 02/05/24 tablet,extended release rosuvastatin 20 mg tablet 20 mg PO QPM 09/04/23 02/05/24 spironolactone 50 mg tablet 50 mg PO DAILY 09/04/23 02/05/24 warfarin 3 mg tablet PO 09/04/23 Allergies Allergy/AdvReac Type Severity Reaction Status Date / Time No Known Drug Allergies Allergy Verified 02/05/24 21:09 Review of Systems Status of ROS: Reports: 10 or more systems reviewed and unremarkable except as noted in History and below [facility] Social History Smoking Status: Former smoker Do you use any of these nicotine containing products: None Second hand tobacco smoke exposure: No How often do you have a drink containing alcohol: monthly or less How often do you have six or more drinks on one occasion: Never AUDIT-C Alcohol total score: 1 Non-prescribed substance use: denies use service: No Exam Narrative: Exam Narrative: Overweight, well-developed patient in no acute distress. Alert and oriented. A nswers questions appropriately. Mood and affect are appropriate. Thoughts are goal oriented and rational. No tangential or magical thinking noted. Patient speaks in full sentences without needing to catch his breath. HEENT: Normocephalic atraumatic. Pupils are equally round reactive to light. Extraocular muscles are intact. Conjunctivae are moist without any icterus noted. Slightly dry mucous membranes. Posterior pharynx is normal. Neck is soft with no lymphadenopathy. Cardiovascular: Heart is regular rate and rhythm S1 and S2 are present without any murmurs. Lungs: Clear to auscultation bilaterally no wheezes rhonchi or rales are appreciated. Patient takes deep breaths without any discomfort. Abdomen: Protuberant and soft, he has mild suprapubic discomfort. Normal bowel sounds. Extremities: Bilateral lower extremities are without edema. Skin: Well perfused without any obvious rashes. Const: Vital Signs, click to edit/add: Vital Signs - 24 hr 02/05/24 19:35 Temperature 97.5 F L Pulse Rate [Pulse Oximeter] 84 Respiratory Rate 16 Blood Pressure [Ri ght Upper Arm] 111/75 Pulse Oximetry 98 Oxygen Delivery Me thod Room Air Course Course ED Course: IV is established patient started a L of normal saline. Labs were drawn: CBC shows slight anemia with a hemoglobin 12.2, normal white blood cell count. Potassium was elevated at 5.9, remainder of electrolytes unremarkable. Normal lactate. LFTs unremarkable. Total protein elevated at 9.2. Lipase elevated at 626. Urinalysis shows 2+ blood, 2-5 RBCs, trace leukocyte esterase. Repeat potassium after fluids was 5.8. EKG, read by me, does not show concerning changes thought to be secondary to elevated potassium. He does have a first-degree AV block and left axis deviation, pulse 78. Patient was only able to give a very small amount urine for his urine sample. Abdominal CT scan shows an interval decrease in the size of the complex multi septated collection in the prostate now measuring 1.4 x 1.3 x 3.9 cm, this was previously 5.3 x 6.6 x 5.0 cm. Discuss[address] patient with Dr. Brenner who has graciously accepted the patient for admission. Vital Signs Vital signs: Initial Vital Signs Temperature 97.5 F L 02/05/24 19:35 Temperature Source Temporal Artery Scan 02/05/24 19:35 Pulse Rate 84 02/05/24 19:35 Respiratory Rate 16 02/05/24 19:35 Blood Pressure 111/75 02/05/24 19:35 Blood Pressure Mean 87 02/05/24 19:35 Blood Pressure Position Sitting 02/05/24 19:35 Pulse Oximetry 98 02/05/24 19:35 Oxygen Delivery Method Room Air 02/05/24 19:35 Vital Signs Temperature 97.5 F L 02/05/24 19:35 Pulse Rate 84 02/05/24 19:35 Respiratory Rate 16 02/05/24 19:35 Blood Pressure 111/75 02/05/24 19:35 Pulse Oximetry 98 02/05/24 19:35 Oxygen Delivery Method Room Air 02/05/24 19:35 Temperature 97.5 F L 02/05/24 19:35 Pulse Rate 84 02/05/24 19:35 Respiratory Rate 16 02/05/24 19:35 Blood Pressure 111/75 02/05/24 19:35 Pulse Oximetry 98 02/05/24 19:35 Oxygen Delivery Method Room Air 02/05/24 19:35 Medications Administered Medications: Discontinued Medications Generic Name Dose Route Start Last Admin Trade Name Freq PRN Reason Stop Dose Admin Sodium Chloride 1,000 mls @ 1,000 mls/hr 02/05/24 20:00 02/05/24 21:16 0.9 % Sodium Chloride 1000 Ml IV 02/05/24 20:59 Infused .Q1H BILLIE Infusion Medical Decision Making MDM Narrative Medical decision making narrative: 68-year-old male presenting with weakness after a prostate abscess was diagnosed and treated at [facility]. He also presents with hyperkalemia and decreased urine output. Patient will be admitted for further management. Lab Data Lab results reviewed: Yes I reviewed the patient's lab results Labs: Lab Results 02/05/24 02/05/24 02/05/24 Range/Units 20:24 20:25 21:44 WBC 6.41 (4.50-11.00) K/uL RBC 4.31 (4.30-5.90) m/uL Hgb 12.2 L (13.5-17.5) gm/dL Hct 36.9 L (37.0-53.0) % MCV 86 (80-100) fL MCH 28 (26-34) pg MCHC 33 (32-36) gm/dL RDW Coeff of Yunior 14.8 (11.5-15.5) % Plt Count 288 (140-440) K/uL Neut % (Auto) 50.7 (42.0-72.0) % Lymph % (Auto) 29.0 (20-44) % [place] % (Auto) 13.7 H (0.0-11.0) % Eos % (Auto) 5.6 (0.0-7.0) % Baso % (Auto) 0.5 (0.0-3.0) % Neut # (Auto) 3.25 (1.7-7.0) K/uL Lymph # (Auto) 1.86 (0.90-2.90) K/uL [place] # (Auto) 0.90 (0.00-0.90) K/UL Eos # (Auto) 0.36 (0.00-0.50) K/uL Baso # (Auto) 0.03 (0.00-0.30) K/uL Abs Immat Gran (auto) 0.03 (0.00-0.30) K/uL Imm/Tot Granulo (auto) 0.5 % Sodium 135 (135-149) mmol/L Potassium 5.9 H (3.6-5.1) mmol/L Chloride 109 (96-114) mmol/L Carbon Dioxide 16 L (20-32) mmol/L Anion Gap 10 (7-15) mEq/L BUN 25 (7-30) mg/dL Creatinine 1.3 (0.5-1.5) mg/dL Estimated Creat Clear 52.26 Estimated GFR 61 ml/min Glucose 174 H (60-115) mg/dL Lactate 1.9 (0.5-1.9) mmol/L Calcium 10.0 (8.4-10.6) mg/dL Total Bilirubin 0.6 (0.1-1.5) mg/dL Direct Bilirubin 0.5 (0.0-0.5) mg/dL AST 38 H (12-35) U/L ALT 47 (4-50) U/L Alkaline Phosphatase 71 (40-150) U/L C-Reactive Protein 0.6 (0.5-1.0) mg/dL Total Protein 9.2 H (6.0-8.3) g/dL Albumin 4.6 (3.3-5.0) g/dL Lipase 626 H (23-300) U/L Urine Color Yellow (Yellow) Urine Appearance Clear (Clear) Urine pH 5.5 (5.0-8.5) Ur Specific [place] 1.015 (1.000-1.030) Urine Protein Trace A (Negative) Urine Glucose (UA) Negative (Negative) Urine Ketones Negative (Negative) Urine Blood 2+ A (Negative) Urine Nitrite Negative (Negative) Urine Bilirubin Negative (Negative) Urine Urobilinogen 0.2 (0.2-1.0) Ur Leukocyte Esterase Trace A (Negative) Urine RBC 2-5 A (0-2) Urine WBC 2-5 (0-5) Ur Squamous Epith Cells None (None-Few) Urine Bacteria None (None) POC Creatinine 1.5 H (0.6-1.3) mg/dl 02/05/24 Range/Units 22:03 WBC (4.50-11.00) K/uL RBC (4.30-5.90) m/uL Hgb (13.5-17.5) gm/dL Hct (37.0-53.0) % MCV (80-100) fL MCH (26-34) pg MCHC (32-36) gm/dL RDW Coeff of Yunior (11.5-15.5) % Plt Count (140-440) K/uL Neut % (Auto) (42.0-72.0) % Lymph % (Auto) (20-44) % [place] % (Auto) (0.0-11.0) % Eos % (Auto) (0.0-7.0) % Baso % (Auto) (0.0-3.0) % Neut # (Auto) (1.7-7.0) K/uL Lymph # (Auto) (0.90-2.90) K/uL [place] # (Auto) (0.00-0.90) K/UL Eos # (Auto) (0.00-0.50) K/uL Baso # (Auto) (0.00-0.30) K/uL Abs Immat Gran (auto) (0.00-0.30) K/uL Imm/Tot Granulo (auto) % Sodium (135-149) mmol/L Potassium 5.8 H (3.6-5.1) mmol/L Chloride (96-114) mmol/L Carbon Dioxide (20-32) mmol/L Anion Gap (7-15) mEq/L BUN (7-30) mg/dL Creatinine (0.5-1.5) mg/dL Estimated Creat Clear Estimated GFR ml/min Glucose (60-115) mg/dL Lactate (0.5-1.9) mmol/L Calcium (8.4-10.6) mg/dL Total Bilirubin (0.1-1.5) mg/dL Direct Bilirubin (0.0-0.5) mg/dL AST (12-35) U/L ALT (4-50) U/L Alkaline Phosphatase (40-150) U/L C-Reactive Protein (0.5-1.0) mg/dL Total Protein (6.0-8.3) g/dL Albumin (3.3-5.0) g/dL Lipase (23-300) U/L Urine Color (Yellow) Urine Appearance (Clear) Urine pH (5.0-8.5) Ur Specific [place] (1.000-1.030) Urine Protein (Negative) Urine Glucose (UA) (Negative) Urine Ketones (Negative) Urine Blood (Negative) Urine Nitrite (Negative) Urine Bilirubin (Negative) Urine Urobilinogen (0.2-1.0) Ur Leukocyte Esterase (Negative) Urine RBC (0-2) Urine WBC (0-5) Ur Squamous Epith Cells (None-Few) Urine Bacteria (None) POC Creatinine (0.6-1.3) mg/dl Imaging Data CT scan - abdomen: Attestation: I have reviewed the pertinent imaging results. Radiologist's impression: Procedure(s): CT abdomen pelvis w con Accession Number(s): [id number] cc: Marah Fajardo M.D.; Opal Richards, DO~ For Patients: As a result of the Cures Act, medical imaging exams and procedure reports are released immediately into your electronic medical record. You may view this report before your referring provider. If you have questions, please contact your health care provider. INDICATION: Abdominal pain. TECHNIQUE: Multiplanar CT examination of the abdomen and pelvis was performed after the administration of 100 mL Omnipaque 350 intravenous contrast. COMPARISON: CT abdomen pelvis 01/16/2024. FINDINGS: Lower chest: No focal consolidation. Normal heart size. No pleural effusions or pneumothorax. Dependent atelectasis. Linear band like opacification of the lungs, likely subsegmental atelectasis. Liver: There are scattered hepatic hypodensities, likely simple hepatic cysts. Gallbladder: Cholelithiasis without gallbladder distention or wall thickening. Biliary: Unremarkable. Pancreas: Within normal limits. Spleen: Unremarkable. Adrenal glands: Unremarkable. Renal/ureters/bladder: Normal in size and symmetrically enhancing. Stable nonobstructing 3 mm urinary calculus within the distal left ureter. No suspicious renal masses. The ureters appear unremarkable. The bladder is within normal limits. Pelvis: Interval decrease in the size of a complex, heterogeneously enhancing multi-septated collection in the prostate now measuring approximately 1.4 x 1.3 x 3.9 cm, previously 5.3 x 6.6 x 5.0 cm. Gastrointestinal: No bowel wall thickening or bowel obstruction. Nonvisualized appendix. No significant colonic diverticulosis. Mild colonic stool burden. Vasculature: No aortic aneurysm. The portal vein remains patent. Mild atherosclerotic calcifications. Lymph nodes: Stable enlarged left pelvic sidewall lymph node measuring 1.7 x 1.1 cm. Peritoneum: No free fluid or pneumoperitoneum. No drainable fluid collections. Abdominal wall/soft tissues: Unremarkable. Bones: No acute osseous abnormalities. Mild multilevel degenerative changes of the thoracolumbar spine. IMPRESSION: 1. Interval decrease in the size of a complex multi-septated collection in the prostate, now measuring 1.4 x 1.3 x 3.9 cm, previously 5.3 x 6.6 x 5.0 cm. This is again compatible with a prostatic abscess. 2. Stable left pelvic sidewall lymph node. Underlying prostate neoplasm is again difficult to exclude. Correlation with PSA is again advised. 3. Stable nonobstructing urinary calculus measuring 3 mm within the distal left ureter. 4. Cholelithiasis without evidence of acute cholecystitis. ECG Data Attestation: I personally reviewed and interpreted this ECG as follows: Discharge Plan Discharge Clinical Impression: Decreased urine output, Abscess of prostate, Weakness, Hyperkalemia Patient Disposition: Admitted As Observation Prescriptions: No Action metoprolol tartrate 100 mg tablet 100 mg PO BID warfarin 3 mg tablet PO hydrochlorothiazide 25 mg tablet 25 mg PO BID lisinopril 40 mg tablet 40 mg PO DAILY metformin 500 mg tablet extended release 24 hr 1,000 mg PO BID spironolactone 50 mg tablet 50 mg PO DAILY rosuvastatin 20 mg tablet 20 mg PO QPM insulin glargine [Lantus Solostar U-100 Insulin] 100 unit/mL (3 mL) insulin pen subcut potassium chloride 20 mEq tablet extended release 20 meq PO DAILY Victoza 2-Isaac 1.8 mg SUBQ-VAC DAILY Follow Up/Referrals: Opal Richards DO [Primary Care Provider] -
[2024-02-05] MEDS: 0.9 % SODIUM CHLORIDE 1000 ml 1,000 ML IV (20:15)
[2024-02-05 20:32] LABS: Lactate* 1.9 mmol/L (0.5-1.9)
[2024-02-05 20:38] LABS: Basophils Absolute Auto 0.03 K/uL (0.00-0.30); Basophils Percent Auto 0.5 % (0.0-3.0); Eosinophils Absolute Auto 0.36 K/uL (0.00-0.50); Eosinophils Percent Auto 5.6 % (0.0-7.0); Hematocrit 36.9 % (37.0-53.0); Hemoglobin* 12.2 gm/dL (13.5-17.5); Immature Granulocytes Abs Auto 0.03 K/uL (0.00-0.30); Immature Granulocytes Pct Auto 0.5 %; Lymphocytes Absolute Auto 1.86 K/uL (0.90-2.90); Mean Corpuscular HGB Conc 33 gm/dL (32-36); Mean Corpuscular Hemoglobin 28 pg (26-34); Mean Corpuscular Volume 86 fL (80-100); Monocytes Percent Auto 13.7 % (0.0-11.0); Neutrophils Absolute Auto 3.25 K/uL (1.7-7.0); Neutrophils Percent Auto 50.7 % (42.0-72.0); Platelet Count* 288 K/uL (140-440); RDW Coefficient of Variation % 14.8 % (11.5-15.5); Red Blood Count 4.31 m/uL (4.30-5.90); White Blood Count* 6.41 K/uL (4.50-11.00)
[2024-02-05 20:57] LABS: Slide Review Reflex No
[2024-02-05 21:27] LABS: Chloride* 109 mmol/L (96-114)
[2024-02-05 21:28] LABS: Albumin* 4.6 g/dL (3.3-5.0); Sodium* 135 mmol/L (135-149)
[2024-02-05 21:29] LABS: Potassium* 5.9 mmol/L (3.6-5.1)
[2024-02-05 21:30] LABS: Creatinine* 1.3 mg/dL (0.5-1.5); Est. Creatinine Clearance* 52.26; Estimated Glomerular Filt Rate 61 ml/min
[2024-02-05 21:31] LABS: Alkaline Phosphatase* 71 U/L (40-150); Anion Gap 10 mEq/L (7-15); Aspartate Amino Transferase* 38 U/L (12-35); Bilirubin Direct* 0.5 mg/dL (0.0-0.5); Bilirubin Total* 0.6 mg/dL (0.1-1.5); Blood Urea Nitrogen* 25 mg/dL (7-30); Carbon Dioxide* 16 mmol/L (20-32); Lipase* 626 U/L (23-300); Total Protein* 9.2 g/dL (6.0-8.3)
[2024-02-05 21:32] LABS: Alanine Aminotransferase* 47 U/L (4-50); Glucose* 174 mg/dL (60-115)
[2024-02-05 21:34] LABS: C Reactive Protein* 0.6 mg/dL (0.5-1.0)
[2024-02-05 21:52] LABS: Creatinine, Point-of-Care* 1.5 mg/dl (0.6-1.3)
[2024-02-05 21:54] LABS: Appearance Urine Clear (Clear); Bilirubin Urine Negative (Negative); Blood Urine 2+ (Negative); Color Urine Yellow (Yellow); Glucose Urine Negative (Negative); Ketones Urine Negative (Negative); Leukocyte Esterase Urine Trace (Negative); Nitrite Urine Negative (Negative); Protein Urine Trace (Negative); Specific Gravity Urine 1.015 (1.000-1.030); Urobilinogen Urine 0.2 (0.2-1.0); pH Urine 5.5 (5.0-8.5)
[2024-02-05 22:16] LABS: Potassium* 5.8 mmol/L (3.6-5.1)
[2024-02-05 23:26] VITALS: BP 136/77; PULSE 80; RESP 18; TEMP 36.5; O2SAT 98; BMI 39.7
[2024-02-06] VITALS (8 sets, daily range): BP systolic 119–137; BP diastolic 65–71; PULSE 76–89; RESP 18–20; TEMP 36.4–37.1; O2SAT 93–98
--- NOTE | 2024-02-06 00:06 | P.IMHP_ITS ---
Hospitalist- H&P: HPI History of Present Illness Time Seen by Provider: 23:45 Date Seen: 02/05/24 Chief complaint: Blood in urine, weak Narrative: Juma South is a 68 year old male with a history of right mural thrombus, patent foramen ovale, CKD, hypertension, hyperlipidemia, history of MRSA bacterial endocarditis, type 2 diabetes mellitus, chronic anticoagulation with Coumadin, and obstructive sleep apnea who had an abscess of his prostate on 01/16/2024 for which he was sent up to [facility] and had an unroofing via cystoscopy. Urine culture around that time grew out MRSA that was sensitive to Bactrim. After being on antibiotics in the hospital, he was transitioned over to oral Bactrim DS for home going. He is supposed to take this for 6 weeks. He had follow-up labs a week from discharge along with a plan to discontinue the Breaux at that time, however he was unable to secure a ride up to [facility] and so came to our emergency department where he had the Breaux taken out. He therefore missed getting the labs drawn. In the last few days he has felt fatigue and complains of cramps in his legs and hands, mostly is hands. He notes that overall he had been feeling better each day since his surgery until the last 3 days when he seemed to be getting worse again. He denies any fevers or chills. Abdominal pain has continued to improve; there is no worsening of that. Rectal pressure that he had was gone after the unroofing and has not returned. He denies any shortness of breath or chest pain. He has had no melena or hematochezia. His appetite has been a little poor over the last day and he did not take much fluid in before coming to the ER. He also noticed some lower urine output. He has been somewhat incontinent of urine since the procedure and has been wearing depends which is how he knows that he is having less urine output. Review of Systems Status of ROS: Reports: 10 or more systems reviewed and unremarkable except as noted in History and below [facility] Medical History (Updated 02/06/24 @ 01:14 by Tyra Brenner MD) Abscess of prostate ?N41.2 - Abscess of prostate (ICD-10) MRSA (methicillin resistant Staphylococcus aureus) ?A49.02 - Methicillin resistant Staphylococcus aureus infection, unspecified site (ICD-10) CKD (chronic kidney disease) stage 2, GFR 60-89 ml/min (01/17/24) ?N18.2 - Chronic kidney disease, stage 2 (mild) (ICD-10) Sleep apnea (03/30/16) ?G47.30 - Sleep apnea, unspecified (ICD-10) Right atrial thrombus (10/08/19) ?I51.3 - Intracardiac thrombosis, not elsewhere classified (ICD-10) Polyp of colon (12/31/17) ?K63.5 - Polyp of colon (ICD-10) Patent foramen ovale (10/09/16) ?Q21.12 - Patent foramen ovale (ICD-10) Obesity, morbid (03/07/23) ?E66.01 - Morbid (severe) obesity due to excess calories (ICD-10) Mixed hyperlipidemia (03/19/17) ?E78.2 - Mixed hyperlipidemia (ICD-10) Melena (12/10/17) ?K92.1 - Melena (ICD-10) Hypertensive urgency (10/16/17) ?I16.0 - Hypertensive urgency (ICD-10) Hypertension (03/30/16) ?I10 - Essential (primary) hypertension (ICD-10) H/O bacterial endocarditis (06/21/18) ?Z86.79 - Personal history of other diseases of the circulatory system (ICD- 10) Fatigue (11/21/18) ?R53.83 - Other fatigue (ICD-10) Edema of lower extremity (11/21/18) ?R60.0 - Localized edema (ICD-10) Type 2 diabetes mellitus (03/03/11) ?E11.9 - Type 2 diabetes mellitus without complications (ICD-10) Cardiomyopathy (07/10/18) ?I42.9 - Cardiomyopathy, unspecified (ICD-10) Ascending aorta dilation (07/02/23) ?I77.810 - Thoracic aortic ectasia (ICD-10) Anticoagulation monitoring, INR range 2-3 (10/09/19) ?Z79.01 - [facility] (current) use of anticoagulants (ICD-10) Adenomatous colon polyp (01/01/18) ?D12.6 - Benign neoplasm of colon, unspecified (ICD-10) Surgical History (Updated 02/06/24 @ 00:16 by Tyra Brenner MD) H/O cystoscopy ?Z98.890 - Other specified postprocedural states (ICD-10) H/O colonoscopy ?Z98.890 - Other specified postprocedural states (ICD-10) Social History (Updated 02/06/24 @ 00:18 by Tyra Brenner MD) Narrative: Denies tobacco or alcohol use. Wishes to be FULL CODE. Smoking Status: Former smoker Do you use any of these nicotine containing products: None Second hand tobacco smoke exposure: No How often do you have a drink containing alcohol: monthly or less How often do you have six or more drinks on one occasion: Never AUDIT-C Alcohol total score: 1 Non-prescribed substance use: denies use service: No Meds Home Medications and Allergies Home Medications ?Medication ?Instructions ?Recorded ?Confirmed ?Type Victoza 2-Isaac 1.8 mg SUBQ-VAC DAILY 09/04/23 02/05/24 History hydrochlorothiazide 25 mg tablet 50 mg PO DAILY 09/04/23 02/06/24 History insulin glargine 100 unit/mL (3 80 unit subcut Q24H 09/04/23 02/06/24 History mL) subcutaneous pen (Lantus Solostar U-100 Insulin) lisinopril 40 mg tablet 40 mg PO DAILY 09/04/23 02/05/24 History metformin 500 mg tablet,extended 1,000 mg PO BID 09/04/23 02/05/24 History release 24 hr metoprolol tartrate 100 mg tablet 100 mg PO BID 09/04/23 02/05/24 History potassium chloride 20 mEq 20 meq PO DAILY 09/04/23 02/05/24 History tablet,extended release rosuvastatin 20 mg tablet 20 mg PO QPM 09/04/23 02/05/24 History spironolactone 50 mg tablet 50 mg PO DAILY 09/04/23 02/05/24 History warfarin 3 mg tablet See Rx Instructions PO .COMPLEX 09/04/23 02/06/24 History cetirizine 10 mg tablet 10 mg PO DAILY 02/06/24 02/06/24 History ferrous sulfate 325 mg (65 mg 325 mg PO DAILY 02/06/24 02/06/24 History iron) tablet,delayed release liraglutide 0.6 mg/0.1 mL (18 mg/3 1.8 mg subcut DAILY 02/06/24 02/06/24 History mL) subcutaneous pen injector sulfamethoxazole 800 1 tab PO BID 02/06/24 02/06/24 History mg-trimethoprim 160 mg tablet (Bactrim DS) Allergies Allergy/AdvReac Type Severity Reaction Status Date / Time No Known Drug Allergies Allergy Verified 02/05/24 21:09 Exam Narrative: Exam Narrative: General: No acute distress. Awake alert oriented x3. Obese. HEENT: Normocephalic atraumatic, pupils equally round and reactive to light and accommodation. Oropharynx clear. Mucous membranes are slightly dry. No cervical lymphadenopathy, thyromegaly or carotid bruits. No JVD. Cardiovascular: Regular rate and rhythm. No murmurs, gallops, or rubs. Chest: No increased work of breathing. Clear to auscultation bilaterally. No crackles or wheezes. Abdomen: Bowel sounds present. Soft, nondistended, nontender. No hepatosplenomegaly or masses. Extremities: No edema, no cyanosis or clubbing. Skin: No jaundice, no pallor, no rashes. Neuro: Grossly intact. No focal deficits. Strength is 5/5 in all 4 extremities. Const: Vital Signs, click to edit/add: Vital Signs - 24 hr 02/05/24 19:35 02/05/24 23:26 Temperature 97.5 F L 97.7 F Pulse Rate [Pulse Oximeter] 84 80 Respiratory Rate 16 18 Blood Pressure [Ri ght Arm] 136/77 Blood Pressure [Ri ght Upper Arm] 111/75 Pulse Oximetry 98 98 Oxygen Delivery Me thod Room Air Room Air Hospitalist - H&P: Result Labs Labs: Short CBC 02/05/24 Range/Units 20:25 WBC 6.41 (4.50-11.00) K/uL Hgb 12.2 L (13.5-17.5) gm/dL Hct 36.9 L (37.0-53.0) % Plt Count 288 (140-440) K/uL BMP 02/05/24 02/05/24 20:25 22:03 Sodium 135 Potassium 5.9 H 5.8 H Chloride 109 Carbon Dioxide 16 L BUN 25 Creatinine 1.3 Glucose 174 H Calcium 10.0 Liver Function 02/05/24 Range/Units 20:25 Total Bilirubin 0.6 (0.1-1.5) mg/dL Direct Bilirubin 0.5 (0.0-0.5) mg/dL AST 38 H (12-35) U/L ALT 47 (4-50) U/L Alkaline Phosphatase 71 (40-150) U/L Albumin 4.6 (3.3-5.0) g/dL Urine 02/05/24 Range/Units 21:44 Urine Color Yellow (Yellow) Urine Appearance Clear (Clear) Urine pH 5.5 (5.0-8.5) Ur Specific [place] 1.015 (1.000-1.030) Urine Protein Trace A (Negative) Urine Glucose (UA) Negative (Negative) Procedure(s): CT abdomen pelvis w con Accession Number(s): [id number] cc: Marah Fajardo M.D.; Opal Richards, DO~ For Patients: As a result of the Cures Act, medical imaging exams and procedure reports are released immediately into your electronic medical record. You may view this report before your referring provider. If you have questions, please contact your health care provider. INDICATION: Abdominal pain. TECHNIQUE: Multiplanar CT examination of the abdomen and pelvis was performed after the administration of 100 mL Omnipaque 350 intravenous contrast. COMPARISON: CT abdomen pelvis 01/16/2024. FINDINGS: Lower chest: No focal consolidation. Normal heart size. No pleural effusions or pneumothorax. Dependent atelectasis. Linear band like opacification of the lungs, likely subsegmental atelectasis. Liver: There are scattered hepatic hypodensities, likely simple hepatic cysts. Gallbladder: Cholelithiasis without gallbladder distention or wall thickening. Biliary: Unremarkable. Pancreas: Within normal limits. Spleen: Unremarkable. Adrenal glands: Unremarkable. Renal/ureters/bladder: Normal in size and symmetrically enhancing. Stable nonobstructing 3 mm urinary calculus within the distal left ureter. No suspicious renal masses. The ureters appear unremarkable. The bladder is within normal limits. Pelvis: Interval decrease in the size of a complex, heterogeneously enhancing multi-septated collection in the prostate now measuring approximately 1.4 x 1.3 x 3.9 cm, previously 5.3 x 6.6 x 5.0 cm. Gastrointestinal: No bowel wall thickening or bowel obstruction. Nonvisualized appendix. No significant colonic diverticulosis. Mild colonic stool burden. Vasculature: No aortic aneurysm. The portal vein remains patent. Mild atherosclerotic calcifications. Lymph nodes: Stable enlarged left pelvic sidewall lymph node measuring 1.7 x 1.1 cm. Peritoneum: No free fluid or pneumoperitoneum. No drainable fluid collections. Abdominal wall/soft tissues: Unremarkable. Bones: No acute osseous abnormalities. Mild multilevel degenerative changes of the thoracolumbar spine. IMPRESSION: 1. Interval decrease in the size of a complex multi-septated collection in the prostate, now measuring 1.4 x 1.3 x 3.9 cm, previously 5.3 x 6.6 x 5.0 cm. This is again compatible with a prostatic abscess. 2. Stable left pelvic sidewall lymph node. Underlying prostate neoplasm is again difficult to exclude. Correlation with PSA is again advised. 3. Stable nonobstructing urinary calculus measuring 3 mm within the distal left ureter. 4. Cholelithiasis without evidence of acute cholecystitis. Please note that all CT scans at this facility use dose modulation, iterative reconstruction, and/or weight-based dosing when appropriate to reduce radiation dose to as low as reasonably achievable. Dictated by Kevin Yates MD @ 02/05/2024 9:55:10 PM (Electronically Signed) Assessment and Plan Assessment and plan (1) Hyperkalemia: Problem comment: - He was started on bactrim DS at discharge from [facility] for prostate abscess (MRSA, bactrim sensitive). He was scheduled to have labs 1 week after discharge, but had trouble getting a ride to [facility], so these were not done. - 01/22/24 K was 4.1 - K is 5.9 today, now down to 5.8 after IVF in ER. I note Cr was 0.84 on 01/21 and is 1.5 today, although looking back through his records, his baseline fluctuates, but appears to be about 1.3 - I suspect recent addition of bactrim likely interacted with spironolactone and KCl supplements to cause hyperkalemia. - admit for treatment of hyperkalemia, monitor on telemetry, give calcium gluconate IV for cardiac membrane stabilization, albuterol neb, dextrose and insulin, furosemide. Hold spironolactone, potassium supplements and lisinopril. I suspect volume depletion is also a contributing factor for which I will give him another liter of NS over 2 hours and hold his HCTZ. Since he complains of w eakness, will give lokelma. Recheck potassium in a few hours with morning labs. Status: Acute (2) CKD (chronic kidney disease) stage 2, GFR 60-89 ml/min: Problem comment: baseline Cr is about 1.3. In the last month, Cr has been 0.8-1.5. Status: Chronic (3) Anticoagulation monitoring, INR range 2-3: Problem comment: - for h/o R mural thrombus and PFO, goal 2-3. Continue current warfarin dosing. Monitor daily INR. Status: Chronic (4) MRSA (methicillin resistant Staphylococcus aureus): Problem comment: h/o MRSA bacteremia in 2017 and Urine culture, septra sensitive, 01/17/24 Status: Acute (5) Abscess of prostate: Problem comment: - Transurethral unroofing on 01/19/24, breaux catheter removed 01/28/24 - [facility] ID recommends 6 weeks of bactrim - Continue bactrim DS Status: Acute (6) Type 2 diabetes mellitus: Problem comment: Continue home dosing of LA insulin and add ISS for hospitalization Status: Acute
[2024-02-06 00:54] LABS: INR 3.17 (0.91-1.10)
[2024-02-06 00:58] LABS: Potassium* 5.8 mmol/L (3.6-5.1)
[2024-02-06] MEDS: ALBUTEROL SULFATE 2.5 MG/3 ML VIAL.NEB NEB (01:24)
[2024-02-06] MEDS: FUROSEMIDE 10 MG/ML inj 40 MG IVP ×2 (01:25→17:47)
[2024-02-06] MEDS: CALCIUM GLUC 1,000MG/50 ML 1,000 MG/50 ML BAG 100 MG IVPB (01:27)
[2024-02-06] MEDS: 0.9 % SODIUM CHLORIDE 1000 ml 1,000 ML 500 ML IV (01:28)
[2024-02-06] MEDS: DEXTROSE 50 % SYRINGE IVP (01:46)
[2024-02-06] MEDS: SODIUM ZIRCONIUM CYCLOSILICATE 10 GM PO (02:33)
--- NOTE | 2024-02-06 06:30 | PC.NURSE ---
Pt is alert and oriented x3. Afebrile. Pt reports 4/10 pain in abdomen, pain managed with PRN medication. Pt is up SBA with IV pole. Pt is voiding no blood noted in urine, and no BM overnight. VSS. Pt is tolerating regular diet and slept intermittently throughout night. ?
[2024-02-06 06:47] LABS: Chloride* 110 mmol/L (96-114)
[2024-02-06 06:48] LABS: Potassium* 5.2 mmol/L (3.6-5.1); Sodium* 137 mmol/L (135-149)
[2024-02-06 06:50] LABS: Creatinine* 1.2 mg/dL (0.5-1.5); Est. Creatinine Clearance* 56.61; Estimated Glomerular Filt Rate 67 ml/min
[2024-02-06 06:51] LABS: Anion Gap 13 mEq/L (7-15); Blood Urea Nitrogen* 20 mg/dL (7-30); Calcium* 9.8 mg/dL (8.4-10.6); Carbon Dioxide* 14 mmol/L (20-32); Glucose* 164 mg/dL (60-115)
[2024-02-06] MEDS: INSULIN ASPART 100 UNIT/ML SUBCUT ×4 (08:06→20:43)
[2024-02-06] MEDS: METFORMIN ER 500 MG 1000 MG PO ×2 (08:07→17:47)
[2024-02-06] MEDS: hydroCHLOROthiazide 25 MG TABLET 50 MG PO (09:49)
[2024-02-06] MEDS: METOPROLOL TARTRATE 100 MG TABLET PO ×2 (09:49→20:44)
[2024-02-06] MEDS: FERROUS SULFATE 325 MG TABLET PO (09:49)
[2024-02-06] MEDS: CETIRIZINE HCL 10 MG TABLET PO (09:49)
[2024-02-06 10:09] LABS: Magnesium* 1.6 mg/dL (1.5-2.6); Phosphorus* 4.3 mg/dL (2.5-4.5)
--- NOTE | 2024-02-06 11:09 | NUTR.NU ---
RDN with nutrition screen for renal diet. Past medical history including, but not limited to CKD stage 2, MRSA, Type 2 diabetes mellitus, and recent admission at [facility] for prostate abscess. Patient admitted with hyperkalemia. Per MD note, recent addition of Bactrim likely interacted with spironolactone and KCL supplements to cause hyperkalemia. Patient reports a fair appetite today and consumed 100% of breakfast consisting of scrambled eggs, cheese, turkey sausage, bulgarian muffin, and diet cranberry juice. Patient notes appetite and oral intake fluctuate based on how he is feeling. Current weight is at 251lbs (02/06/24), BMI 39.4kg/m2. Weight hx: 251lbs 01/16/24 and 258lbs 09/04/23. Weight fluctuations not significant. Patient in agreement with weight hx. RDN provided education on potassium containing foods, foods lower and higher in potassium d/t hyperkalemia. Handouts provided to support discussion. Patient to follow per MD recommendation. Patient declined verbal education for designated caregiver and will pass along the handout provided. Diabetic diet education provided d/t diagnosis of type 2 diabetes mellitus. Discussed basics of carbohydrate counting including sources of carbohydrates, serving sizes, and label reading. Discussed using the plate method for carbohydrate-controlled, balanced meals that include ? plate non-starchy vegetables, ? plate protein, and 3-4 servings of carbohydrates per meal (fruit, whole grains, legumes, milk, yogurt) and 1-2 per snack. Handouts provided to support discussion. RDN contact information provided and encouraged patient to call with questions. RDN to follow up as needed.
--- NOTE | 2024-02-06 14:23 | PM.IMPN1 ---
Progress Note: A&P Assessment and plan (1) Hyperkalemia: Problem details: Likely caused by Bactrim. Bactrim is a good choice for his MRSA prostate infection so I would like to continue it. Will monitor to see if he can tolerate continue and Bactrim but withholding medications that are raising his potassium, lisinopril, spironolactone, potassium. In the absence of acute kidney injury or other metabolic disorders may be able to tolerate Bactrim. Status: Acute (2) Abscess of prostate: Problem details: - Transurethral unroofing on 01/19/24, breaux catheter removed 01/28/24 - [facility] ID recommends 6 weeks of bactrim - Continue bactrim DS Status: Acute (3) MRSA (methicillin resistant Staphylococcus aureus): Problem details: h/o MRSA bacteremia in 2017 and Urine culture, septra sensitive, 01/17/24 Status: Acute (4) Type 2 diabetes mellitus: Problem details: Continue home dosing of LA insulin and add ISS for hospitalization. Question of recent problems with blood sugar control. Patient has recently stopped using his continuous glucose monitor Status: Acute (5) CKD (chronic kidney disease) stage 2, GFR 60-89 ml/min: Problem details: baseline Cr is about 1.3. In the last month, Cr has been 0.8-1.5. Status: Chronic (6) Sleep apnea: Status: Chronic (7) Urinary incontinence: Problem details: Check bladder scan for you incomplete emptying. Follow-up with Urology. Status: Acute (8) Metabolic acidosis: Problem details: Probably related to the Bactrim. Monitor. Status: Acute Plan Continue in-hospital for monitoring of fluid and electrolyte status. Will need to decide if he will continue on Bactrim with close monitoring of electrolytes, renal function, INR, CBC or switch to alternative antibiotic. Time Spent With Patient Total time spent: Total time spent today is 60 minutes, 40 minutes in coordination of care discussing with patient other providers ongoing evaluation management of prostate infection, hyperkalemia, hypertension Subjective Date Seen: 02/06/24 Interval history: Juma South is a 68 year old male with a history of right mural thrombus, patent foramen ovale, CKD, hypertension, hyperlipidemia, history of MRSA bacterial endocarditis, type 2 diabetes mellitus, chronic anticoagulation with Coumadin, and obstructive sleep apnea who had an abscess of his prostate on 01/16/2024 for which he was sent up to [facility] and had an unroofing via cystoscopy. Urine culture around that time grew out MRSA that was sensitive to Bactrim. After being on antibiotics in the hospital, he was transitioned over to oral Bactrim DS for home going. He is supposed to take this for 6 weeks after discharge from the hospital. He had follow-up labs a week from discharge along with a plan to discontinue the Breaux at that time, however he was unable to secure a ride up to [facility] and so came to our emergency department where he had the Breaux taken out. He therefore missed getting the labs drawn. In the last few days he has felt fatigue and complains of cramps in his legs and hands, mostly is hands. He notes that overall he had been feeling better each day since his surgery until the last 3 days when he seemed to be getting worse again. He denies any fevers or chills. Abdominal pain has continued to improve; there is no worsening of that. Rectal pressure that he had was gone after the unroofing and has not returned. He denies any shortness of breath or chest pain. He has had no melena or hematochezia. His appetite has been a little poor over the last day and he did not take much fluid in before coming to the ER. He also noticed some lower urine output. He has been somewhat incontinent of urine since the procedure and has been wearing depends which is how he knows that he is having less urine output. He is pending outpatient appointment with infectious disease and urology. In clinic last week he had an elevated potassium of 5.4. He reports no changes in his medications. He reports good compliance with his medications. February 05: He reports feeling better today. His appetite is improved. Still having urinary symptoms. No other symptoms of illness. He did have nocturia prior to his prostate infection and prostate surgery. He reports he get up every 2 to 2-1/2 hours at night to void. No other lower urinary symptoms however. No urgency, incontinence, dysuria or poor urinary stream or sense of incomplete emptying before his prostate infection. Exam Narrative: Exam Narrative: He is alert and appears in no distress. Respirations are clear to auscultation. Cardiovascular: S1, S2, regular rate and rhythm. Abdomen: Bowel sounds active. Abdomen is soft without tenderness or mass. Extremities without significant edema. Const: Vital Signs, click to edit/add: Vital Signs - 24 hr 02/05/24 19:35 02/05/24 23:26 02/05/24 23:26 Temperature 97.5 F L 97.7 F Pulse Rate Pulse Rate [Pulse Oximeter] 84 80 Respiratory Rate 16 18 18 Blood Pressure [Ri ght Arm] 136/77 Blood Pressure [Ri ght Upper Arm] 111/75 Pulse Oximetry 98 98 Oxygen Delivery Me thod Room Air Room Air 02/06/24 02:30 02/06/24 03:32 02/06/24 07:00 Temperature 97.8 F Pulse Rate 79 82 Pulse Rate [Pulse Oximeter] 89 Respiratory Rate 18 Blood Pressure [Ri ght Arm] 137/70 Blood Pressure [Ri ght Upper Arm] Pulse Oximetry 98 Oxygen Delivery Me thod Room Air 02/06/24 07:00 02/06/24 07:00 02/06/24 07:00 Temperature 97.6 F Pulse Rate Pulse Rate [Pulse Oximeter] 88 88 Respiratory Rate 18 18 18 Blood Pressure [Ri ght Arm] 121/71 Blood Pressure [Ri ght Upper Arm] Pulse Oximetry 95 95 Oxygen Delivery Me thod Room Air Room Air 02/06/24 10:49 Temperature 97.6 F Pulse Rate Pulse Rate [Pulse Oximeter] 88 Respiratory Rate 18 Blood Pressure [Ri ght Arm] 136/69 Blood Pressure [Ri ght Upper Arm] Pulse Oximetry 93 Oxygen Delivery Me thod Room Air Documenting provider has reviewed patient's vital signs: yes Labs Labs: Laboratory Results - last 24 hr 02/05/24 02/05/24 02/05/24 20:24 20:25 21:44 WBC 6.41 RBC 4.31 Hgb 12.2 L Hct 36.9 L MCV 86 MCH 28 MCHC 33 RDW Coeff of Yunior 14.8 Plt Count 288 Neut % (Auto) 50.7 Lymph % (Auto) 29.0 [place] % (Auto) 13.7 H Eos % (Auto) 5.6 Baso % (Auto) 0.5 Neut # (Auto) 3.25 Lymph # (Auto) 1.86 [place] # (Auto) 0.90 Eos # (Auto) 0.36 Baso # (Auto) 0.03 Abs Immat Gran (auto) 0.03 Imm/Tot Granulo (auto) 0.5 INR 3.17 H Sodium 135 Potassium 5.9 H Chloride 109 Carbon Dioxide 16 L Anion Gap 10 BUN 25 Creatinine 1.3 Estimated Creat Clear 52.26 Estimated GFR 61 Glucose 174 H Lactate 1.9 Calcium 10.0 Phosphorus Magnesium Total Bilirubin 0.6 Direct Bilirubin 0.5 AST 38 H ALT 47 Alkaline Phosphatase 71 C-Reactive Protein 0.6 Total Protein 9.2 H Albumin 4.6 Lipase 626 H Urine Color Yellow Urine Appearance Clear Urine pH 5.5 Ur Specific [place] 1.015 Urine Protein Trace A Urine Glucose (UA) Negative Urine Ketones Negative Urine Blood 2+ A Urine Nitrite Negative Urine Bilirubin Negative Urine Urobilinogen 0.2 Ur Leukocyte Esterase Trace A Urine RBC 2-5 A Urine WBC 2-5 Ur Squamous Epith Cells None Urine Bacteria None Lab Acknowledgement POC Creatinine 1.5 H 02/05/24 02/06/24 02/06/24 22:03 00:30 06:14 WBC RBC Hgb Hct MCV MCH MCHC RDW Coeff of Yunior Plt Count Neut % (Auto) Lymph % (Auto) [place] % (Auto) Eos % (Auto) Baso % (Auto) Neut # (Auto) Lymph # (Auto) [place] # (Auto) Eos # (Auto) Baso # (Auto) Abs Immat Gran (auto) Imm/Tot Granulo (auto) INR Sodium 137 Potassium 5.8 H 5.8 H 5.2 H Chloride 110 Carbon Dioxide 14 L Anion Gap 13 BUN 20 Creatinine 1.2 Estimated Creat Clear 56.61 Estimated GFR 67 Glucose 164 H Lactate Calcium 9.8 Phosphorus 4.3 Magnesium 1.6 Total Bilirubin Direct Bilirubin AST ALT Alkaline Phosphatase C-Reactive Protein Total Protein Albumin Lipase Urine Color Urine Appearance Urine pH Ur Specific [place] Urine Protein Urine Glucose (UA) Urine Ketones Urine Blood Urine Nitrite Urine Bilirubin Urine Urobilinogen Ur Leukocyte Esterase Urine RBC Urine WBC Ur Squamous Epith Cells Urine Bacteria Lab Acknowledgement POC Creatinine 02/06/24 07:25 WBC RBC Hgb Hct MCV MCH MCHC RDW Coeff of Yunior Plt Count Neut % (Auto) Lymph % (Auto) [place] % (Auto) Eos % (Auto) Baso % (Auto) Neut # (Auto) Lymph # (Auto) [place] # (Auto) Eos # (Auto) Baso # (Auto) Abs Immat Gran (auto) Imm/Tot Granulo (auto) INR Sodium Potassium Chloride Carbon Dioxide Anion Gap BUN Creatinine Estimated Creat Clear Estimated GFR Glucose Lactate Calcium Phosphorus Magnesium Total Bilirubin Direct Bilirubin AST ALT Alkaline Phosphatase C-Reactive Protein Total Protein Albumin Lipase Urine Color Urine Appearance Urine pH Ur Specific [place] Urine Protein Urine Glucose (UA) Urine Ketones Urine Blood Urine Nitrite Urine Bilirubin Urine Urobilinogen Ur Leukocyte Esterase Urine RBC Urine WBC Ur Squamous Epith Cells Urine Bacteria Lab Acknowledgement Test Added POC Creatinine
[2024-02-06 15:25] LABS: Chloride* 108 mmol/L (96-114); Potassium* 5.5 mmol/L (3.6-5.1); Sodium* 135 mmol/L (135-149)
[2024-02-06 15:28] LABS: Anion Gap 9 mEq/L (7-15); Blood Urea Nitrogen* 23 mg/dL (7-30); Carbon Dioxide* 18 mmol/L (20-32); Creatinine* 1.4 mg/dL (0.5-1.5); Est. Creatinine Clearance* 48.53; Estimated Glomerular Filt Rate 55 ml/min; Glucose* 193 mg/dL (60-115)
[2024-02-06 15:29] LABS: Calcium* 9.6 mg/dL (8.4-10.6)
[2024-02-06] MEDS: ROSUVASTATIN CALCIUM 10 MG TABLET 20 MG PO (17:47)
[2024-02-06] MEDS: WARFARIN 5 MG TABLET PO (17:47)
--- NOTE | 2024-02-06 19:10 | PC.NURSE ---
End of shift: Pt is alert and oriented x3. Afebrile this shift, pleasant and cooperative. Patient is independent in RM and to BR. Pt is voiding, clear yellow urine. VSS and patient on RA. Pt. is tolerating a reg. diet.
[2024-02-07 00:15] VITALS: BP 133/66; PULSE 71; RESP 18; O2SAT 94
[2024-02-07 00:21] VITALS: RESP 18; O2SAT 94
[2024-02-07 03:01] VITALS: BP 139/71; PULSE 75; RESP 18; O2SAT 98
--- NOTE | 2024-02-07 06:28 | PC.NURSE ---
End of shift [id number]: A&O pleasant and cooperative. VSS. Pt sleepy throughout shift. SBA to bathroom. x1 episode of small amount of blood in brief. ?Pt voiding adequate amounts. Denies pain and n/v. Using call light appropriately.?
[2024-02-07 07:00] VITALS: BP 129/65; PULSE 77; RESP 18; TEMP 36.8; O2SAT 98
[2024-02-07] MEDS: INSULIN ASPART 100 UNIT/ML SUBCUT (07:36)
[2024-02-07] MEDS: METFORMIN ER 500 MG 1000 MG PO (07:37)
[2024-02-07 07:42] LABS: Chloride* 108 mmol/L (96-114); Sodium* 134 mmol/L (135-149)
[2024-02-07 07:42] LABS: Prothrombin Time 33.4 Seconds
[2024-02-07 07:43] LABS: Potassium* 5.2 mmol/L (3.6-5.1)
[2024-02-07 07:45] LABS: Anion Gap 7 mEq/L (7-15); Blood Urea Nitrogen* 26 mg/dL (7-30); Carbon Dioxide* 19 mmol/L (20-32); Creatinine* 1.3 mg/dL (0.5-1.5); Est. Creatinine Clearance* 52.26; Estimated Glomerular Filt Rate 61 ml/min
[2024-02-07 07:46] LABS: Calcium* 9.6 mg/dL (8.4-10.6); Glucose* 177 mg/dL (60-115)
[2024-02-07] MEDS: METOPROLOL TARTRATE 100 MG TABLET PO (09:05)
[2024-02-07] MEDS: hydroCHLOROthiazide 25 MG TABLET 50 MG PO (09:05)
[2024-02-07] MEDS: CETIRIZINE HCL 10 MG TABLET PO (09:05)
[2024-02-07] MEDS: FERROUS SULFATE 325 MG TABLET PO (09:05)
[2024-02-07] MEDS: TORSEMIDE 20 MG TABLET PO (10:11)
--- NOTE | 2024-02-07 12:40 | PC.NURSE ---
Discharge: patient alert and oriented x4, independ. in RA and BR. Voiding and tolerating a reg. diet. VSS. afebrile, denies N/V/SOB or pain. Patient discharged to home today at 1222. Discharge instructions given and patient verbalized understanding, belongings sheet signed. IV removed intact. Lab appointments made.
--- NOTE | 2024-02-07 12:51 | PM.DS1 ---
DS: Providers Provider Date Seen: 02/07/24 Date of admission: 02/05/24 22:45 Primary care physician: Opal Richards DO Admitting Clinician: Tyra Brenner MD Attending Physician on discharge: Jose Stevens MD Date of Discharge: 02/07/24 DS: Diagnosis Discharge Diagnosis (1) Hyperkalemia: Status: Acute Problem details: Likely caused by Bactrim. Bactrim is the optimal choice for his MRSA prostate infection so we should try to make this work. Will monitor to see if he can tolerate continue and Bactrim but withholding medications that are raising his potassium: lisinopril, spironolactone, potassium. Also added torsemide to his hydrochlorothiazide to help with potassium excretion. In the absence of acute kidney injury or other metabolic disorders he may be able to tolerate Bactrim. Very close followup of electrolytes and renal function. Check basic metabolic panel tomorrow. (2) Abscess of prostate: Status: Acute Problem details: - Transurethral unroofing on 01/19/24, breaux catheter removed 01/28/24 - Figueroa ID recommends 6 weeks of bactrim - Continue bactrim DS. I spoke with Dr. Larson, ID, pager [phone] who recommends follow-up with him before completing the course of Bactrim. 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 Question of recent problems with blood sugar control. Patient has recently stopped using his continuous glucose monitor (5) CKD (chronic kidney disease) stage 2, GFR 60-89 ml/min: Status: Chronic Problem details: baseline Cr is about 1.3. In the last month, Cr has been 0.8-1.5. (6) Sleep apnea: Status: Chronic (7) Urinary incontinence: Status: Acute Problem details: Check bladder scan for you incomplete emptying. Follow-up with Urology in the next month. (8) Metabolic acidosis: Status: Acute Problem details: Probably related to the Bactrim. Improved. Monitor. (9) Anticoagulation monitoring, INR range 2-3: Status: Chronic Problem details: - for h/o R mural thrombus and PFO, goal 2-3. Slight reduction in warfarin dosing to 6 mg every day. Outpatient close follow-up due to Bactrim therapy DS: Summary Hospital Course Hospital Course: Juma South is a 68 year old male with a history of right mural thrombus, patent foramen ovale, CKD, hypertension, hyperlipidemia, history of MRSA bacterial endocarditis, type 2 diabetes mellitus, chronic anticoagulation with Coumadin, and obstructive sleep apnea who had an abscess of his prostate on 01/16/2024 for which he was sent up to [facility] and had an unroofing via cystoscopy. Urine culture around that time grew out MRSA that was sensitive to Bactrim. After being on antibiotics in the hospital, he was transitioned over to oral Bactrim DS for home going. He is supposed to take this for 6 weeks after discharge from the hospital. He had follow-up labs a week from discharge along with a plan to discontinue the Breaux at that time, however he was unable to secure a ride up to [facility] and so came to our emergency department where he had the Breaux taken out. He therefore missed getting the labs drawn. In the last few days he has felt fatigue and complains of cramps in his legs and hands, mostly is hands. He notes that overall he had been feeling better each day since his surgery until the last 3 days when he seemed to be getting worse again. He denies any fevers or chills. Abdominal pain has continued to improve; there is no worsening of that. Rectal pressure that he had was gone after the unroofing and has not returned. He denies any shortness of breath or chest pain. He has had no melena or hematochezia. His appetite has been a little poor over the last day and he did not take much fluid in before coming to the ER. He also noticed some lower urine output. He has been somewhat incontinent of urine since the procedure and has been wearing depends which is how he knows that he is having less urine output. He is pending outpatient appointment with infectious disease and urology. In clinic last week he had an elevated potassium of 5.4. He reports no changes in his medications. He reports good compliance with his medications. February 05: He reports feeling better today. His appetite is improved. Still having urinary symptoms. No other symptoms of illness. He did have nocturia prior to his prostate infection and prostate surgery. He reports he get up every 2 to 2-1/2 hours at night to void. No other lower urinary symptoms however. No urgency, incontinence, dysuria or poor urinary stream or sense of incomplete emptying before his prostate infection. February 06: Patient continues to feel well. Labs are improving. Discharge to home with follow-up at [facility] for labs tomorrow and at [facility] in 5 days. Status at Discharge Functional status at discharge: independent ambulation Overall status at discharge: patient is back to baseline Time Spent with Patient Time attestation: Total time spent providing and/or coordinating discharge services: 45 minutes Time spent: Greater than 30 minutes Exam Narrative: Exam Narrative: He is alert and appears in no distress. Breathing is unlabored. No significant edema. Const: Vital Signs, click to edit/add: Vital Signs - 24 hr 02/06/24 14:45 02/06/24 14:45 02/06/24 14:45 Temperature 98.7 F Pulse Rate Pulse Rate [Pulse Oximeter] 88 88 Respiratory Rate 18 18 18 Blood Pressure [Ri ght Arm] 133/65 Pulse Oximetry 98 98 Oxygen Delivery Me thod Room Air Room Air 02/06/24 15:00 02/06/24 19:44 02/06/24 22:07 Temperature 98.3 F Pulse Rate 79 76 Pulse Rate [Pulse Oximeter] 86 Respiratory Rate 20 Blood Pressure [Ri ght Arm] 119/65 Pulse Oximetry 94 Oxygen Delivery Me thod Room Air 02/07/24 00:15 02/07/24 00:21 02/07/24 03:01 Temperature Pulse Rate Pulse Rate [Pulse Oximeter] 71 75 Respiratory Rate 18 18 18 Blood Pressure [Ri ght Arm] 133/66 139/71 Pulse Oximetry 94 94 98 Oxygen Delivery Me thod Room Air Room Air Room Air 02/07/24 07:00 02/07/24 07:00 02/07/24 07:00 Temperature Pulse Rate 77 Pulse Rate [Pulse Oximeter] 77 Respiratory Rate 18 18 Blood Pressure [Ri ght Arm] Pulse Oximetry 98 Oxygen Delivery Me thod Room Air 02/07/24 07:00 Temperature 98.3 F Pulse Rate Pulse Rate [Pulse Oximeter] 77 Respiratory Rate 18 Blood Pressure [Ri ght Arm] 129/65 Pulse Oximetry 98 Oxygen Delivery Me thod Room Air Documenting provider has reviewed patient's vital signs: yes DS: Data Data Completed and Pending Labs on day of discharge: Labs from last 24 hours 02/07/24 02/07/24 02/06/24 07:19 06:35 15:04 INR 3.00 H Sodium 134 L 135 Potassium 5.2 H 5.5 H Chloride 108 108 Carbon Dioxide 19 L 18 L Anion Gap 7 9 BUN 26 23 Creatinine 1.3 1.4 Estimated Creat Clear 52.26 48.53 Estimated GFR 61 55 Glucose 177 H 193 H Calcium 9.6 9.6 Preliminary micro results at discharge 02/05/24 21:44 Urine Culture - Preliminary Urine,Clean Catch < 10,000 COL/ML GRAM NEGATIVE RODS ISOLATED NO FURTHER WORKUP Imaging CT scan - abdomen: Radiologist's impression: INDICATION: Abdominal pain. TECHNIQUE: Multiplanar CT examination of the abdomen and pelvis was performed after the administration of 100 mL Omnipaque 350 intravenous contrast. COMPARISON: CT abdomen pelvis 01/16/2024. FINDINGS: Lower chest: No focal consolidation. Normal heart size. No pleural effusions or pneumothorax. Dependent atelectasis. Linear band like opacification of the lungs, likely subsegmental atelectasis. Liver: There are scattered hepatic hypodensities, likely simple hepatic cysts. Gallbladder: Cholelithiasis without gallbladder distention or wall thickening. Biliary: Unremarkable. Pancreas: Within normal limits. Spleen: Unremarkable. Adrenal glands: Unremarkable. Renal/ureters/bladder: Normal in size and symmetrically enhancing. Stable nonobstructing 3 mm urinary calculus within the distal left ureter. No suspicious renal masses. The ureters appear unremarkable. The bladder is within normal limits. Pelvis: Interval decrease in the size of a complex, heterogeneously enhancing multi-septated collection in the prostate now measuring approximately 1.4 x 1.3 x 3.9 cm, previously 5.3 x 6.6 x 5.0 cm. Gastrointestinal: No bowel wall thickening or bowel obstruction. Nonvisualized appendix. No significant colonic diverticulosis. Mild colonic stool burden. Vasculature: No aortic aneurysm. The portal vein remains patent. Mild atherosclerotic calcifications. Lymph nodes: Stable enlarged left pelvic sidewall lymph node measuring 1.7 x 1.1 cm. Peritoneum: No free fluid or pneumoperitoneum. No drainable fluid collections. Abdominal wall/soft tissues: Unremarkable. Bones: No acute osseous abnormalities. Mild multilevel degenerative changes of the thoracolumbar spine. IMPRESSION: 1. Interval decrease in the size of a complex multi-septated collection in the prostate, now measuring 1.4 x 1.3 x 3.9 cm, previously 5.3 x 6.6 x 5.0 cm. This is again compatible with a prostatic abscess. 2. Stable left pelvic sidewall lymph node. Underlying prostate neoplasm is again difficult to exclude. Correlation with PSA is again advised. 3. Stable nonobstructing urinary calculus measuring 3 mm within the distal left ureter. 4. Cholelithiasis without evidence of acute cholecystitis. Discharge Plan Discharge Disposition: Home, Self-Care Date of Admission: 02/05/24 22:45 Primary Care Provider: Opal Richards Condition: Improved Anticipated Discharge Date/Time: 02/07/24 11:09 Discharge Medications: New torsemide 20 mg tablet 20 mg PO DAILY Qty: 30 0RF Continued metoprolol tartrate 100 mg tablet 100 mg PO BID hydrochlorothiazide 25 mg tablet 50 mg PO DAILY metformin 500 mg tablet extended release 24 hr 1,000 mg PO BID rosuvastatin 20 mg tablet 20 mg PO QPM insulin glargine [Lantus Solostar U-100 Insulin] 100 unit/mL (3 mL) insulin pen 80 unit subcut Q24H cetirizine 10 mg tablet 10 mg PO DAILY Rx Instructions: Take 1 Tablet (10 mg) by mouth once daily. ferrous sulfate 325 mg (65 mg iron) tablet,delayed release (DR/EC) 325 mg PO DAILY Rx Instructions: Take 1 Tablet (325 mg) by mouth once daily with a meal. liraglutide 0.6 mg/0.1 mL (18 mg/3 mL) pen injector 1.8 mg SUBCUT DAILY Rx Instructions: Inject 1.8 mg subcutaneous once daily. sulfamethoxazole-trimethoprim [Bactrim DS] 800-160 mg tablet 1 tab PO BID Changed warfarin 3 mg tablet 6 mg PO DAILY Qty: 60 0RF Discontinued lisinopril 40 mg tablet 40 mg PO DAILY spironolactone 50 mg tablet 50 mg PO DAILY potassium chloride 20 mEq tablet extended release 20 meq PO DAILY Victoza 2-Isaac 1.8 mg SUBQ-VAC DAILY Discharge Orders: Discharge Order (Routine); Ordered 02/07/24 Ordered By: Dayton Stevens Patient Education: Torsemide (By mouth), Prostatitis (DC), Chronic Kidney Disease (DC) Additional Instructions: Return to [facility] lab tomorrow morning for a blood test. Activity Level: No Restrictions Discharge Diet: Heart Healthy (2 gm sodium, low fat) Follow Up Appointments: Opal Richards DO [Primary Care Provider] - 02/13/24 2:00 pm ([facility] for postop with Dr. Richards. [facility] for labs February 08, 2024. Second lab appointment at [facility] February 12, 2024 @8:45am.) Forms: [employer] Info Instructions
== END 2024-02-07 12:22 | disposition home or self-care (01) ==
LOC: ED 22:39 → MEDSURG 22:46
PROVIDERS: Family Medicine; Admitting Provider Family Medicine; Emergency Provider Family Medicine; PCP Family Medicine; Visit Provider Family Medicine
DX: E87.5 Hyperkalemia (principal); R34 Anuria and oliguria; R53.1 Weakness; N41.2 Abscess of prostate; E87.21 Acute metabolic acidosis; R32 Unspecified urinary incontinence; A49.02 Methicillin resistant Staphylococcus aureus infection, unspecified site; K80.20 Calculus of gallbladder without cholecystitis without obstruction; R79.82 Elevated C-reactive protein (CRP); R74.8 Abnormal levels of other serum enzymes; D64.9 Anemia, unspecified; I12.9 Hypertensive chronic kidney disease with stage 1 through stage 4 chronic kidney disease, or unspecified chronic kidney disease; E11.22 Type 2 diabetes mellitus with diabetic chronic kidney disease; N18.2 Chronic kidney disease, stage 2 (mild); E78.5 Hyperlipidemia, unspecified; R33.9 Retention of urine, unspecified; R11.0 Nausea; R53.83 Other fatigue; R53.81 Other malaise; D12.6 Benign neoplasm of colon, unspecified; G47.30 Sleep apnea, unspecified; Z51.81 Encounter for therapeutic drug level monitoring; I44.0 Atrioventricular block, first degree; Z79.84 Long term (current) use of oral hypoglycemic drugs; Z79.01 Long term (current) use of anticoagulants; Z79.4 Long term (current) use of insulin; Z87.891 Personal history of nicotine dependence; Z86.79 Personal history of other diseases of the circulatory system
CPT/HCPCS: 36415; 51798; 74177; 80048; 80076; 81001; 82565; 82962; 83605; 83690; 83735; 84100; 84132; 85025; 85610; 86140; 87086; 93005; 94640; 96361; 96365; 96366; 96372; 96375; 99284; 99285; G0378; A9270; J0613; J1940; J7030; Q9967

== ENCOUNTER 2024-02-08 09:26 | Outpatient (CLI) | payer MEDICARE, SELFPAY ==
--- OUTSIDE RECORDS SUMMARY | 2024-02-08 09:30 | XMS_ITS | Clinical Summary ---
Author Organization [employer] Address [place], [place] [address] Care Team Providers Care Retail Property Manager Name Role Phone Opal Richards DO Primary Care Provider [phone] Allergies Active Allergy Reactions Criticality Noted Date Comments Iodine Hives 10/08/2019 Medications Medication Sig Dispensed Refills Start Date End Date Status Yuhek-4-BPF-EPA-Fi sh Oil 1,000 mg (120 mg-180 mg) [...] be used to read blood sugars, follow bulldozer mechanic directions. 9 Each 3 06/21/20 Active Dexcom G7 Call Center Rn for continuous blood glucose monitor (CGM)Indications:U ncontrolled type 2 diabetes mellitus with hyperglycemia (HC) To be used to read blood sugars follow bulldozer mechanic directions. 1 Each 06/21/20 23 Active acetaminophen [...] daily. 36 mL 10/25/19 24 Active Insulin Sheridan, Disposable, (Novofine 32) 32 gauge x 1/4 [...] Type Department Care Team Description 02/01/[address] [address] Radha Prieto MD Refill Request (Metformin) 01/31/[address] [address] Opal Richards, DO Results 01/30/[address] [address] Opal Richards, Anticoagulation (Provider review) 01/30/2024 Anticoagulation (warfarin) [address] [address] 1, [facility] Anticoagulation 01/29/2024 11:30 AM CDT Orders Only [address] [address] Lab[facility] 01/29/2024 Travel 01/26/[address] [address] Opal Richards, DO Anticoagulation (Unable to contact) 01/25/2024 11:25 AM CDT Office Visit [address] [address] Arben Sheets DO Hospital F/U (DOD 01/22/2024 - catheter is giving him pain ) 01/25/2024 Travel 01/24/2024 Anticoagulation (warfarin) [address] [address] 1, [facility] Anticoagulation (Chart update - Colonoscopy cancelled - Post hospital) 01/24/2024 Patient Outreach [address] [address] Rabia Rodrigues, RN Primary RN Care Management; Hospital F/U (LACE 56) 01/23/2024 Orders Only [facility] [address] [place] [address] [phone] Rony Larson MD <No scans attached> 01/22/2024 Telephone [facility] [address] [place] [address] Demetrio Lopez MD Appointment 01/19/2024 11:10 AM CDT Anesthesia Event [facility] [address] [place] [address] Robi White MD PascoeArvin Ortez, [facility] 01/19/2024 10:45 AM CDT - 01/19/2024 12:49 PM CDT Surgery [facility] [address] [place] [address] Glen Chavez MD CYSTOSCOPY, TRANSURETHRAL resection of prostate, UNROOFING OF PROSTATE ABSCESS, dilation of uretheral stricture 01/17/2024 5:08 AM CDT - 01/23/2024 1:39 PM CDT Hospital Encounter [facility] [address] [place] [address] [facility], [facility] Hospitalists [facility], MD Johnny Lane, DO Amparo Bird, Sunni Young MD Sleep apnea, unspecified type (Primary Dx); Prostate abscess; Pre-op examination; Right atrial thrombus; Patent foramen ovale; Anticoagulation monitoring, INR range 2-3; Anticoagulant long-term use Discharge Disposition: Home Self Care 01/16/2024 Telephone [facility] [address] [place] [address] Opal Richards, GI update 01/15/2024 Telephone [facility] [address] [place] [address] Opal Richards, Anticoagulation (BPA-Lovenox) 01/15/2024 Telephone [facility] [address] [place] [address] Opal Richards, Medication Management (enoxaparin (LOVENOX) 100 mg/mL injection) 01/15/2024 Telephone [facility] [address] [place] [address] Opal Richards, Medication Management (enoxaparin (LOVENOX) 100 mg/mL injection) 01/15/2024 Orders Only [facility] [address] [facility] [place] [address] Opal Richards, DO <No scans attached> 01/15/2024 Telephone [facility] [address] [place] [address] Opal Richards, Anticoagulation (BPA- LOVENOX) 01/15/2024 Telephone [facility] [address] [place] [address] Opal Richards, Results 01/14/2024 10:25 AM CDT Preop Visit [facility] [address] [place] [address] Opal Richards, Pre-Op Exam (Pre op, [facility], dr. lopez 01/27) 01/14/2024 Anticoagulation (warfarin) [facility] [address] [place] [address] , [facility] Anticoagulation 01/14/[address] [address] Opal Richards, Follow Up 01/14/[address] [address] Opal Richards, Results 01/14/2024 Travel 01/04/2024 Orders Only [facility] [address] [place] [address] Opal Richards, DO <No scans attached> 01/03/2024 11:00 AM CDT Orders Only [address] [address] Lab[facility] 01/03/2024 Anticoagulation (warfarin) [facility] [address] [place] [address] 1, [facility] Anticoagulation 01/03/2024 Travel 12/20/2023 2:15 PM CDT Orders Only [facility] [address] [place] [address] Lab[facility] 12/20/2023 Anticoagulation (warfarin) [facility] [address] [place] [address] 1, [facility] Anticoagulation 12/20/2023 Travel 12/13/2023 11:00 AM CDT Orders Only [facility] 1400 [facility] [place] [address] Lab[facility] 12/13/2023 Anticoagulation (warfarin) [facility] [address] [place] [address] 1, [facility] Anticoagulation 12/13/2023 Travel 12/06/2023 Telephone [facility] [address] [place] [address] Opal Richards, Medication Management (warfarin (COUMADIN) 3 mg tablet) 12/05/2023 9:35 AM CDT Office Visit [facility] [address] [place] [address] Opal Richards, Diabetes 12/05/2023 9:15 AM CDT Orders Only [address] [place] [address] Lab, [facility] 12/05/2023 Anticoagulation (warfarin) [facility] [address] [place] [address] 1, [facility] Anticoagulation 12/05/2023 Travel 11/28/2023 Telephone [facility] [address] [place] [address] Opal Richards, Diabetes from Last 3 Months Immunizations Name Administration [...] Care Team (Late st Contact Info) Description 02/12/2024 8:45 AM CDT Orders Only [facility] [address] [place] [address] [facility] [place] 02/13/2024 2:00 PM CDT Office Visit [facility] [address] [place] [address] Opal Richards DO [address] [place] [address] 02/26/2024 11:00 AM CDT Office Visit [facility] [address] [facility] [address] [place] [address] Rony Larson MD [address] [phone] Health Maintenance Due Date Last Done Comments [...] COUNT MARIANELA 01/20/2024 11:39 AM CDT APTT MARINAELA 01/20/2024 11:39 AM CDT PROTIME-INR MARIANELA 01/20/2024 [...] of5 resultswithin the time period is included. PLATELET COUNT 324 140 - 440 thou/cu mm 01/29/2024 11:56 AM CDT [facility] MPV 10.6 6.5 - 11.0 fL 01/29/2024 11:56 AM CDT [facility] Blood BLOOD SPECIMEN / Unknown Butterfly / Unknown 01/29/2024 11:47 AM CDT 01/29/2024 11:48 AM CDT Narrative [facility] - 01/29/2024 11:56 AM CDT MD to monitor if out of range, to monitor for Heparin-Induced Thrombocytopenia while on lovenox. Opal Richards DO HEMATOLOGY [facility] [address] [place] [address], [place] [phone] * (ABNORMAL) POTASSIUM (01/29/2024 11:47 AM CDT) Only the most recent of4 resultswithin the time period is included. POTASSIUM 5.4(H) 3.5 - 5.1 mmol/L 01/30/2024 2:11 AM CDT [facility] Blood BLOOD SPECIMEN / Unknown Butterfly / Unknown 01/29/2024 11:47 AM CDT 01/29/2024 11:48 AM CDT Opal Richards DO [facility]STRY [facility] [address] [place] [address], [place] * (ABNORMAL) CREATININE (01/29/2024 11:47 AM CDT) Only the most recent of6 resultswithin the time period is included. eGFR 56(L) >90 mL/min/1.7 3m2 01/30/2024 2:11 AM CDT [facility] Comment:As of 2021, eG FR is calculated by the CKD-EPI creatinine equation without race adjustment. ??eGFR can be influenced by muscle mass, exercise, and diet. ??The reported eGFR is an estimation only and is only applicable if the renal function is stable. CREATININE 1.38(H) 0.70 - 1.20 mg/dL 01/30/2024 2:11 AM CDT [facility] Blood BLOOD SPECIMEN / Unknown Butterfly / Unknown 01/29/2024 11:47 AM CDT 01/29/2024 11:48 AM CDT Royn Larson MD CHEMISTRY Performing Organization Address City/[facility] Co de Phone Number [facility] [address] [place] [address], * (ABNORMAL) C-REACTIVE PROTEIN (01/29/2024 11:47 AM CDT) Only the most recent of2 resultswithin the time period is included. Pathologist [facility] C-REACTIVE PROTEIN 0.5(H) <0.5 mg/dL 01/30/2024 2:11 AM CDT [facility] Blood BLOOD SPECIMEN / Unknown Butterfly / Unknown 01/29/2024 11:47 AM CDT 01/29/2024 11:48 AM CDT Opal Richards DO CHEMISTRY Performing Organization Address [facility]/ZIP Co de Phone Number [facility] [address] [place] [address], * (ABNORMAL) PROTIME-INR (01/29/2024 11:47 AM CDT) Only the most recent of11 resultswithin the time period is included. Pathologist [facility] INR 1.9(H) <1.3 01/29/2024 9:35 PM CDT [facility] PROTIME 21.3(H) 10.3 - 12.3 sec 01/29/2024 9:35 PM CDT [facility] Blood BLOOD SPECIMEN / Unknown Butterfly / Unknown 01/29/2024 11:47 AM CDT 01/29/2024 11:48 AM CDT Narrative [facility] - 01/29/2024 9:35 PM CDT ?Therapeutic Range [...] is on UFH. Opal Richards DO HEMATOLOGY [facility] [address] [place] [address], * SCAN CORRESP-LABORATORY RESULTS (01/23/2024 2:27 PM [...] - 100 mg/dL 01/23/2024 7:02 AM CDT [facility] Blood BLOOD SPECIMEN / Unknown 01/23/2024 7:01 AM CDT 01/23/2024 7:02 AM CDT Sunni Christensen MD CHEMISTRY Performing Organization Address [facility] de Phone Number [facility] [address] [address], [place] * (ABNORMAL) HEMOGLOBIN (01/23/2024 4:31 AM CDT) Only the most recent of7 resultswithin the time period is included. [facility] HEMOGLOBIN 10.3(L) 13.5 - 17.5 g/dL 01/23/2024 5:10 AM CDT [facility] MCV 84 80 - 100 fL 01/23/2024 5:10 AM CDT [facility] Blood BLOOD SPECIMEN / Unknown Venipuncture / Unknown 01/23/2024 4:31 AM CDT 01/23/2024 5:05 AM CDT Narrative [facility] - 01/23/2024 5:10 AM CDT Every morning while on IV heparin. Every morning while on IV heparin. Necessary every morning while on IV heparin. Michelle Turner DO HEMATOLOGY Performing Organization Address [facility] de Phone Number [facility] [address] [address], [place] * (ABNORMAL) HEMATOCRIT (01/23/2024 4:31 AM CDT) Only the most recent of4 resultswithin the time period is included. HEMATOCRIT 31.9(L) 37.0 - 53.0 % 01/23/2024 5:10 AM CDT [facility] Blood BLOOD SPECIMEN / Unknown Venipuncture / Unknown 01/23/2024 4:31 AM CDT 01/23/2024 5:05 AM CDT Narrative [facility] - 01/23/2024 5:10 AM CDT Every morning while on IV heparin. Every morning while on IV heparin. Necessary every morning while on IV heparin. Michelle Turner DO HEMATOLOGY Performing Organization Address [facility] Co de Phone Number [facility] [address] [place] [address], * Sodium AM (01/22/2024 5:46 AM CDT) SODIUM 137 136 - 145 mmol/L 01/22/2024 6:27 AM CDT [facility] Blood BLOOD SPECIMEN / Unknown Venipuncture / Unknown 01/22/2024 5:46 AM CDT 01/22/2024 5:58 AM CDT Sunni Christensen MD CHEMISTRY Performing Organization Address [facility] Phone Number [facility] [address] [place] [address], [place] * VANCOMYCIN TROUGH (01/21/2024 4:09 PM CDT) Only the most recent of2 resultswithin the time period is included. VANCOMYCIN,TRO UGH 12.1 7.0 - 20.0 ug/mL 01/21/2024 4:54 PM CDT [facility] DATE OF LAST DOSE,TROUGH 01/21/2024 01/21/2024 4:54 PM CDT [facility] TIME OF LAST DOSE,TROUGH 4:08 AM 01/21/2024 4:54 PM CDT [facility] Blood BLOOD SPECIMEN / Unknown Venipuncture / Unknown 01/21/2024 4:09 PM CDT 01/21/2024 4:16 PM CDT Sunni Christensen MD CHEMISTRY Performing Organization Address [facility] Co de Phone Number [facility] [address] * (ABNORMAL) Electrolyte panel AM (01/21/2024 6:21 AM CDT) SODIUM 136 136 - 145 mmol/L 01/21/2024 7:06 AM CDT [facility] POTASSIUM 3.8 3.5 - 5.1 mmol/L 01/21/2024 7:06 AM CDT [facility] CHLORIDE 106 98 - 107 mmol/L 01/21/2024 7:06 AM CDT [facility] CO2,TOTAL 20(L) 22 - 29 mmol/L 01/21/2024 7:06 AM CDT [facility] ANION GAP 10 5 - 18 01/21/2024 7:06 AM CDT [facility] Blood BLOOD SPECIMEN / Unknown Venipuncture / Unknown 01/21/2024 6:21 AM CDT 01/21/2024 6:38 AM CDT Michelle Turner DO CHEMISTRY [facility] [address] * SCAN-SLEEP STUDY (01/21/2024 12:00 AM CDT) Narrative 01/21/2024 12:00 AM CDT Ordered by an unspecified provider. Other Clinical Staff OTHER * APTT (01/20/2024 9:50 PM CDT) Only the most recent of2 resultswithin the time period is included. APTT 31 28 - 36 sec 01/20/2024 10:14 PM CDT [facility] Blood BLOOD SPECIMEN / Unknown Venipuncture / Unknown 01/20/2024 9:50 PM CDT 01/20/2024 10:02 PM CDT Narrative [facility] - 01/20/2024 10:14 PM CDT Therapeutic Range: 57-87 seconds Sunni Christensen MD HEMATOLOGY Performing Organization Address City/[facility]/ZIP Co de Phone Number [facility] [address] [place] [address], * BUN (01/20/2024 11:39 AM CDT) BUN 16 8 - 23 mg/dL 01/20/2024 1:13 PM CDT [facility] Blood BLOOD SPECIMEN / Unknown Venipuncture / Unknown 01/20/2024 11:39 AM CDT 01/20/2024 12:24 PM CDT Michelle Turner DO CHEMISTRY Performing Organization Address [facility]/ZIP Co de Phone Number [facility] [address] [place] [address], * (ABNORMAL) BASIC METABOLIC PANEL (01/20/2024 3:00 AM CDT) Only the most recent of4 resultswithin the time period is included. SODIUM 136 136 - 145 mmol/L 01/20/2024 3:53 AM CDT [facility] POTASSIUM 4.4 3.5 - 5.1 mmol/L 01/20/2024 3:53 AM CDT [facility] CHLORIDE 102 98 - 107 mmol/L 01/20/2024 3:53 AM CDT [facility] CO2,TOTAL 22 22 - 29 mmol/L 01/20/2024 3:53 AM CDT [facility] ANION GAP 12 5 - 18 01/20/2024 3:53 AM CDT [facility] GLUCOSE 244(H) 70 - 99 mg/dL 01/20/2024 3:53 AM CDT [facility] CALCIUM 9.1 8.8 - 10.2 mg/dL 01/20/2024 3:53 AM CDT [facility] BUN 16 8 - 23 mg/dL 01/20/2024 3:53 AM T [facility] CREATININE 1.21(H) 0.70 - 1.20 mg/dL 01/20/2024 3:53 AM CDT [facility] BUN/CREAT RATIO 13 10 - 20 3:53 AM CDT [facility] eGFR 66(L) >90 mL/min/1.7 3m2 01/20/2024 3:53 AM CDT [facility] Comment:As of 2021, eG [...] 3:24 AM CDT Michelle Turner DO CHEMISTRY [facility] [address] [place], [place] [id number], * HCHG TUBE PR1, HCHG INSTRUMENT DISP [...] of3 resultswithin the time period is included. [facility] WHITE BLOOD COUNT 11.2(H) 4.5 - 11.0 thou/cu mm 01/18/2024 6:47 AM CDT [facility] RED BLOOD COUNT 3.91(L) 4.30 - 5.90 mil/cu mm 01/18/2024 6:47 AM CDT [facility] HEMOGLOBIN 11.0(L) 13.5 - 17.5 g/dL 01/18/2024 6:47 AM CDT [facility] HEMATOCRIT 33.5(L) 37.0 - 53.0 % 01/18/2024 6:47 AM CDT [facility] MCV 86 80 - 100 fL 01/18/2024 6:47 AM CDT [facility] MCH 28.1 26.0 - 34.0 pg 01/18/2024 6:47 AM CDT [facility] MCHC 32.8 32.0 - 36.0 g/dL 01/18/2024 6:47 AM CDT [facility] RDW 13.7 11.5 - 15.5 % 01/18/2024 6:47 AM CDT [facility] PLATELET COUNT 228 140 - 440 thou/cu mm 01/18/2024 6:47 AM CDT [facility] MPV 10.0 6.5 - 11.0 fL 01/18/2024 6:47 AM CDT [facility] NRBC 0.0 % 01/18/2024 6:47 AM CDT [facility] ABS NRBC 0.0 thou /cu mm 01/18/2024 6:47 AM T [facility] Blood BLOOD SPECIMEN / Unknown Venipuncture / Unknown 01/18/2024 6:16 AM CDT 01/18/2024 6:32 AM CDT Michelle Turner DO HEMATOLOGY [facility] [address] [address], [place] * (ABNORMAL) MRSA/SA PCR (01/17/2024 7:28 PM CDT) MRSA DNA PCR Positive( A) Negative 01/17/2024 10:52 PM CDT [facility] STAPHYLOCOCCUS AUREUS PCR Positive( A) Negative 01/17/2024 10:52 PM CDT [facility] Other SPECIMEN FROM INTERNAL NOSE / Unknown Non-Blood / Unknown 01/17/2024 7:28 PM CDT 01/17/2024 7:41 PM CDT Narrative [facility] - 01/17/2024 10:52 PM CDT A positive test result does not necessarily indicate the presence of viable organisms. It is, however, presumptive for the presence of Methicillin Resistant Staphylococcus aureus (MRSA) or Staphylococcus aureus. Michelle Turner DO MICROBIOLOGY Performing Organization Address City/[facility]/ZIP Co de Phone Number [facility] [address] [address], [place] * (ABNORMAL) WHITE BLOOD COUNT (01/17/2024 1:18 PM CDT) WHITE BLOOD COUNT 17.8(H) 4.5 - 11.0 thou/cu mm 01/17/2024 1:50 PM CDT [facility] NRBC 0.0 % 01/17/2024 1:50 PM CDT [facility] ABS NRBC 0.0 thou /cu mm 01/17/2024 1:50 PM CDT [facility] Blood BLOOD SPECIMEN / Unknown Butterfly / Unknown 01/17/2024 1:18 PM CDT 01/17/2024 1:30 PM CDT Michelle Turner DO HEMATOLOGY Performing Organization Address City/[facility]/ZIP Co de Phone Number [facility] [address] [address], [place] * SCAN-CARDIAC STRIP (01/17/2024 12:00 AM CDT) Narrative 01/17/2024 12:00 AM CDT Ordered by an unspecified provider. Other Clinical Staff OTHER * (ABNORMAL) LIVER PANEL (HEPATIC FUNCTION PANEL) (01/14/2024 11:52 AM CDT) ALBUMIN 4.4 4.0 - 4.9 g/dL 01/14/2024 10:44 PM CDT [facility] PROTEIN,TOTAL 8.7(H) 6.0 - 8.0 g/dL 01/14/2024 10:44 PM CDT [facility] BILIRUBIN,TOTAL 0.4 0.0 - 1.2 mg/dL 01/14/2024 10:44 PM CDT [facility] BILIRUBIN,DIRECT <0.2 0.0 - 0.3 mg/dL 01/14/2024 10:44 PM CDT [facility] BILIRUBIN,INDIRE CT 01/14/2024 10:44 PM CDT [facility] Comment:Unable to calculate, Direct Bili <0.2 ALK PHOSPHATASE 76 40 - 129 IU/L 01/14/2024 10:44 PM CDT [facility] ALT (SGPT) 31 10 - 50 IU/L 01/14/2024 10:44 PM CDT [facility] AST (SGOT) 35 10 - 50 IU/L 01/14/2024 10:44 PM CDT [facility] Blood BLOOD SPECIMEN / Unknown Butterfly / Unknown 01/14/2024 11:52 AM CDT 01/14/2024 11:53 AM CDT Opal Richards DO CHEMISTRY [facility] [address] [place] [address], * MAGNESIUM (01/14/2024 10:40 AM CDT) MAGNESIUM 1.6 1.6 - 2.4 mg/dL 01/14/2024 6:22 PM CDT [facility] Blood BLOOD SPECIMEN / Unknown Venipuncture / Unknown 01/14/2024 10:40 AM CDT 01/14/2024 10:40 AM CDT Opal Richards DO CHEMISTRY Performing Organization Address City/[facility] Co de Phone Number [facility] [address] [place] [address], * (ABNORMAL) IRON PLUS IRON BINDING CAP (01/03/2024 11:04 AM CDT) IRON 48(L) 61 - 157 ug/dL 01/03/2024 10:03 PM CDT [facility] UIBC (UNSATURATED) 302 112 - 347 ug/dL 01/03/2024 10:03 PM CDT [facility] IRON BINDING CAPACITY 350 250 - 400 ug/dL 01/03/2024 10:03 PM CDT [facility] IRON,% SATURATION 14 14 - 50 % 01/03/2024 10:03 PM CDT [facility] Blood BLOOD SPECIMEN / Unknown Butterfly / Unknown 01/03/2024 11:04 AM CDT 01/03/2024 11:04 AM CDT Opal Richards DO CHEMISTRY Performing Organization Address City/[facility]/ZIP Co de Phone Number [facility] [address] [address], [place] * FERRITIN (01/03/2024 11:04 AM CDT) FERRITIN 311.0 30.0 - 400.0 ng/mL 01/03/2024 10:03 PM CDT [facility] Blood BLOOD SPECIMEN / Unknown Butterfly / Unknown 01/03/2024 11:04 AM CDT 01/03/2024 11:04 AM CDT Opal Richards DO CHEMISTRY Performing Organization Address City/[facility]/ZIP Co de Phone Number [facility] [address] [place] [address], [place] * (ABNORMAL) INR,POCT (12/20/2023 2:25 PM CDT) Only the most recent of3 resultswithin the time period is included. INR 2.2(H) <1.3 12/20/2023 2:28 PM CDT [facility] Blood BLOOD SPECIMEN / Unknown 12/20/2023 2:25 PM CDT 12/20/2023 2:28 PM CDT Narrative [facility] - 12/20/2023 2:28 PM CDT ?Therapeutic Range 2.0-3.0 for most anticoagulated patients 2.5-3.5 or 4.0 for high risk patients Opal Richards DO LABORATORY Performing Organization Address [facility]/ZIP Co de Phone Number [facility] [address] [place] [address], [place] [phone] * (ABNORMAL) HEMOGLOBIN A1C MONITORING (POCT) (12/05/2023 9:20 AM CDT) HEMOGLOBIN A1C MONITORING (POCT) 12.5(H) <=6.4 % 12/05/2023 9:46 AM CDT [facility] Blood BLOOD SPECIMEN / Unknown Capillary / Unknown 12/05/2023 9:20 AM CDT 12/05/2023 9:24 AM CDT Narrative [facility] - 12/05/2023 9:46 AM CDT [...] Anemias, Splenectomy ? Opal Richards DO CHEMISTRY [facility] [address] [place] [address], * US ABD AORTA SCREENING [[id number]] (07/02/2023 9:12 AM CDT) Anatomical Region Laterality [...] 2023 10:06AM (Electronically Signed) Radha Prieto MD * (ABNORMAL) LIPID PANEL W REFLEX MEASURED LDL (06/19/2023 11:13 AM CDT) CHOLESTEROL,TOTAL 159 100 - 199 mg/dL 06/20/2023 7:00 AM CDT [facility] Comment: Cholesterol, Total Reference Ranges Desirable <200 mg/dL Borderline 200-239 mg/dL High >=240 mg/dL TRIGLYCERIDES 530(H) <150 mg/dL 06/20/2023 7:00 AM CDT [facility] [facility] HDL CHOLESTEROL 30(L) >40 mg/dL 3 7:00 AM CDT [facility] [employer] NON-HDL CHOLESTEROL 129 <145 mg/dl 06/20/2023 7:00 AM CDT [facility] CHOL/HDL RATIO 5.30(H) <4.50 06/20/2023 7:00 AM CDT [facility] [employer] LDL CHOLESTEROL 3 7:00 AM T [facility] Comment:Invalid LDL when Tri g >400. VLDL CHOLESTEROL COMMENT 06/20/2023 7:00 AM CDT [facility] [facility] Comment:Unable to calculate VLDL. PROVIDER ORDERED STATUS RANDOM 06/20/2023 7:00 AM T [facility] Blood BLOOD SPECIMEN / Unknown Venipuncture / Unknown 06/19/2023 11:13 AM CDT 06/19/2023 11:15 AM CDT Opal Richards DO CHEMISTRY [facility] [facility] [address] [place] [address], * ANTI HCV (02/27/2020 2:02 PM CDT) HEPATITIS C ANTIBODY Non-React gennaro Non-React gennaro 02/27/2020 8:36 PM CDT [facility] [employer] [facility] Comment:Antibodies to HCV no t detected; does not exclude the possibility of exposure to HCV. Blood BLOOD SPECIMEN / Unknown Butterfly / Unknown 02/27/2020 2:02 PM CDT 02/27/2020 2:03 PM CDT Radha Prieto MD SEND OUTS Performing Organization Address [facility] Co de Phone Number [facility] [employer] [facility] 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
[2024-02-08 09:44] LABS: HCO3 VBG 18 mmol/L (21-28); PCO2 VBG 32 mmHG (40-50); PO2 VBG 63.1 mmHG (25-47); pH VBG 7.364 (7.32-7.43)
[2024-02-08 10:00] LABS: Chloride* 106 mmol/L (96-114)
[2024-02-08 10:01] LABS: Potassium* 4.6 mmol/L (3.6-5.1); Sodium* 135 mmol/L (135-149)
[2024-02-08 10:03] LABS: Creatinine* 1.6 mg/dL (0.5-1.5); Estimated Glomerular Filt Rate 47 ml/min
[2024-02-08 10:04] LABS: Anion Gap 12 mEq/L (7-15); Blood Urea Nitrogen* 31 mg/dL (7-30); Calcium* 9.4 mg/dL (8.4-10.6); Carbon Dioxide* 17 mmol/L (20-32); Glucose* 275 mg/dL (60-115)
== END 2024-02-08 09:27 | disposition home or self-care (01) ==
LOC: LAB 09:28
PROVIDERS: PCP Family Medicine; Visit Provider Family Medicine
DX: E87.5 Hyperkalemia (principal); I12.9 Hypertensive chronic kidney disease with stage 1 through stage 4 chronic kidney disease, or unspecified chronic kidney disease; E11.22 Type 2 diabetes mellitus with diabetic chronic kidney disease; N18.9 Chronic kidney disease, unspecified; E87.21 Acute metabolic acidosis
CPT/HCPCS: 36415; 80048; 82803

== ENCOUNTER 2024-02-12 13:52 | Emergency (ER) | payer MEDICARE, SELFPAY ==
[2024-02-12 14:01] VITALS: BP 112/73; PULSE 72; RESP 18; TEMP 36.5; O2SAT 97; BMI 38.8
[2024-02-12 14:33] LABS: Bilirubin Urine Negative (Negative); Blood Urine 3+ (Negative); Glucose Urine Negative (Negative); Ketones Urine Negative (Negative); Leukocyte Esterase Urine Trace (Negative); Nitrite Urine Negative (Negative); Protein Urine 3+ (Negative); Specific Gravity Urine 1.025 (1.000-1.030); Urobilinogen Urine 0.2 (0.2-1.0); pH Urine 5.5 (5.0-8.5)
[2024-02-12 14:39] LABS: Appearance Urine Turbid (Clear); Bacteria Urine Many; RBC Urine >100 (0-2); Squamous Epithelial Cell Urine Few (None-Few); WBC Urine 25-50 (0-5)
[2024-02-12 14:40] LABS: Color Urine Red (Yellow)
--- NOTE | 2024-02-12 14:48 | ED_ITS ---
HPI - General Adult General Chief complaint: Urogenital Problems, Male Stated complaint: blood in urine Time Seen by Provider: 02/12/24 14:00 History of Present Illness HPI narrative: Patient here today with blood in urine since Sunday. He states it is pink colored and gush of blood at the end of urination. Set to see a urologist next Sunday. Patient had recent abscess drainage on prostate done about 3 weeks ago at [facility]. Also had recent hospitalization and NF for high potassium. Had INR done this morning, no call back yet from his clinic. On coumadin and recently started Bactrim 68-year-old man presenting to the emergency department with concern of h ematuria. I took care of Mr. South sometime back with recurrence of a prostatic abscess. Ultimately was transferred out. Had surgical intervention. Returned to this department, admitted and discharged after hospitalization 6 days ago. See below for partial summary of visit. On arrival here pending are repeat labs. Has continued on Coumadin and Bactrim. Has continued to be generally fatigued. Underlying history also of diabetes managed with insulin. Does have some postvoid dysuria and continued hematuria with some clots, hematuria which had been intermittent over the last week or so. He is not having increased abdominal pain or apparent retention of urine. No fever. Discharge Diagnosis (1) Hyperkalemia: Status: Acute Problem details: Likely caused by Bactrim. Bactrim is the optimal choice for his MRSA prostate infection so we should try to make this work. Will monitor to see if he can to lerate continue and Bactrim but withholding medications that are raising his potassium: lisinopril, spironolactone, potassium. Also added torsemide to his hydrochlorothiazide to help with potassium excretion. In the absence of acute kidney injury or other metabolic disorders he may be able to tolerate Bactrim. Very close followup of electrolytes and renal function. Check basic metabolic panel tomorrow. (2) Abscess of prostate: Status: Acute Problem details: - Transurethral unroofing on 01/19/24, breaux catheter removed 01/28/24 - Figueroa ID recommends 6 weeks of bactrim - Continue bactrim DS. I spoke with Dr. Larson, ID, pager [phone] who recommends follow-up with him before completing the course of Bactrim. 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 Question of recent problems with blood sugar control. Patient has recently stopped using his continuous glucose monitor (5) CKD (chronic kidney disease) stage 2, GFR 60-89 ml/min: Status: Chronic Problem details: baseline Cr is about 1.3. In the last month, Cr has been 0.8-1.5. Urine Culture* Final ML Organism 1 Staphylococcus aureus Ur [place] Count >100,000 CFU/ml S aureus LITO RX --------- --- Ciprofloxacin <=0.5 S Daptomycin 0.25 S Doxycycline <=0.5 S Gentamicin <=0.5 S Levofloxacin <=0.12 S Linezolid 2 S Nitrofurantoin <=16 S * Oxacillin Lito >=4 R Rifampin <=0.5 S Tetracycline <=1 S Tigecycline <=0.12 S Trimethoprim/Sulfamethoxazole <=10 S Vancomycin 1 S Related Data Home Medications ?Medication ?Instructions ?Recorded ?Confirmed hydrochlorothiazide 25 mg tablet 50 mg PO DAILY 09/04/23 02/06/24 insulin glargine 100 unit/mL (3 80 unit subcut Q24H 09/04/23 02/06/24 mL) subcutaneous pen (Lantus Solostar U-100 Insulin) metformin 500 mg tablet,extended 1,000 mg PO BID 09/04/23 02/05/24 release 24 hr metoprolol tartrate 100 mg tablet 100 mg PO BID 09/04/23 02/05/24 rosuvastatin 20 mg tablet 20 mg PO QPM 09/04/23 02/05/24 cetirizine 10 mg tablet 10 mg PO DAILY 02/06/24 02/06/24 ferrous sulfate 325 mg (65 mg 325 mg PO DAILY 02/06/24 02/06/24 iron) tablet,delayed release liraglutide 0.6 mg/0.1 mL (18 mg/3 1.8 mg subcut DAILY 02/06/24 02/06/24 mL) subcutaneous pen injector sulfamethoxazole 800 1 tab PO BID 02/06/24 02/06/24 mg-trimethoprim 160 mg tablet (Bactrim DS) Previous Rx's ?Medication ?Instructions ?Recorded torsemide 20 mg tablet 20 mg PO DAILY #30 tabs 02/07/24 warfarin 3 mg tablet 6 mg (2 x 3 mg) PO DAILY #60 tabs 02/07/24 Allergies Allergy/AdvReac Type Severity Reaction Status Date / Time No Known Drug Allergies Allergy Verified 02/05/24 21:09 Review of Systems Status of ROS: Reports: 6 or more systems reviewed and unremarkable except as noted in History and below [facility] Medical History Abscess of prostate ?N41.2 - Abscess of prostate (ICD-10) MRSA (methicillin resistant Staphylococcus aureus) ?A49.02 - Methicillin resistant Staphylococcus aureus infection, unspecified site (ICD-10) CKD (chronic kidney disease) stage 2, GFR 60-89 ml/min (01/17/24) ?N18.2 - Chronic kidney disease, stage 2 (mild) (ICD-10) Sleep apnea (03/30/16) ?G47.30 - Sleep apnea, unspecified (ICD-10) Right atrial thrombus (10/08/19) ?I51.3 - Intracardiac thrombosis, not elsewhere classified (ICD-10) Polyp of colon (12/31/17) ?K63.5 - Polyp of colon (ICD-10) Patent foramen ovale (10/09/16) ?Q21.12 - Patent foramen ovale (ICD-10) Obesity, morbid (03/07/23) ?E66.01 - Morbid (severe) obesity due to excess calories (ICD-10) Mixed hyperlipidemia (03/19/17) ?E78.2 - Mixed hyperlipidemia (ICD-10) Melena (12/10/17) ?K92.1 - Melena (ICD-10) Hypertensive urgency (10/16/17) ?I16.0 - Hypertensive urgency (ICD-10) Hypertension (03/30/16) ?I10 - Essential (primary) hypertension (ICD-10) H/O bacterial endocarditis (06/21/18) ?Z86.79 - Personal history of other diseases of the circulatory system (ICD- 10) Fatigue (11/21/18) ?R53.83 - Other fatigue (ICD-10) Edema of lower extremity (11/21/18) ?R60.0 - Localized edema (ICD-10) Type 2 diabetes mellitus (03/03/11) ?E11.9 - Type 2 diabetes mellitus without complications (ICD-10) Cardiomyopathy (07/10/18) ?I42.9 - Cardiomyopathy, unspecified (ICD-10) Ascending aorta dilation (07/02/23) ?I77.810 - Thoracic aortic ectasia (ICD-10) Anticoagulation monitoring, INR range 2-3 (10/09/19) ?Z79.01 - skilled nursing (current) use of anticoagulants (ICD-10) Adenomatous colon polyp (01/01/18) ?D12.6 - Benign neoplasm of colon, unspecified (ICD-10) Surgical History H/O cystoscopy ?Z98.890 - Other specified postprocedural states (ICD-10) H/O colonoscopy ?Z98.890 - Other specified postprocedural states (ICD-10) Social History Narrative: Denies tobacco or alcohol use. Wishes to be FULL CODE. What is your current living situation?: I presently have a place to live Problems where you live: no known problems Problems where you live details: no known problem In the past 12 months, utilities in danger of being shut off: no In past 12 months, lack of transportation kept you from medical appts, meetings, work, or getting things needed for daily living: no In the past 12 mos, have been you worried that your food would run out before you had money to buy more?: never true In the past 12 mos, the food you bought just didn't last and you didn't have money to buy more?: never true Smoking Status: Former smoker Do you use any of these nicotine containing products: None Second hand tobacco smoke exposure: No How often do you have a drink containing alcohol: monthly or less How often do you have six or more drinks on one occasion: Never AUDIT-C Alcohol total score: 1 Non-prescribed substance use: denies use Caffeine: Yes (Coffee) How often does anyone, including family, friends and others, physically hurt you : never How often does anyone, including family, friends and others, insult or talk down to you: never How often does anyone, including family, friends and others, threaten you with harm: never How often does anyone, including family, friends and others, scream or curse at you: never service: No Exam Narrative: Exam Narrative: Pleasant. NAD. Breathing easily. Heart in regular rate and rhythm. Abdomen is soft and mildly tender across the pelvis. Well-healing surgical incisions without inflammatory changes. Normal bowel sounds. Lower extremities without edema. From my well-perfused. No flank pain. Mild erythema secondary to moisture as he has been using Attends. There are light/traces of blood in the attends. He is tender chronically apparently to to manipulation of the right testicle in particular he says. No induration to suggest a secondary cellulitis here. Const: Vital Signs, click to edit/add: Vital Signs - 24 hr 02/12/24 14:01 02/12/24 15:55 Temperature 97.7 F Pulse Rate [Pulse Oximeter] 72 79 Respiratory Rate 18 16 Blood Pressure [Ri ght Upper Arm] 112/73 127/74 Pulse Oximetry 97 96 Oxygen Delivery Me thod Room Air Room Air Documenting provider has reviewed patient's vital signs: yes Course Vital Signs Vital signs: Initial Vital Signs Temperature 97.7 F 02/12/24 14:01 Temperature Source Temporal Artery Scan 02/12/24 14:01 Pulse Rate 72 02/12/24 14:01 Respiratory Rate 18 02/12/24 14:01 Blood Pressure 112/73 02/12/24 14:01 Blood Pressure Mean 86 02/12/24 14:01 Blood Pressure Position Sitting 02/12/24 14:01 Pulse Oximetry 97 02/12/24 14:01 Oxygen Delivery Method Room Air 02/12/24 14:01 Vital Signs Temperature 97.7 F 02/12/24 14:01 Pulse Rate 72 02/12/24 14:01 Respiratory Rate 18 02/12/24 14:01 Blood Pressure 112/73 02/12/24 14:01 Pulse Oximetry 97 02/12/24 14:01 Oxygen Delivery Method Room Air 02/12/24 14:01 Temperature 97.7 F 02/12/24 14:01 Pulse Rate 79 02/12/24 15:55 Respiratory Rate 16 02/12/24 15:55 Blood Pressure 127/74 02/12/24 15:55 Pulse Oximetry 96 02/12/24 15:55 Oxygen Delivery Method Room Air 02/12/24 15:55 Medical Decision Making MDM Narrative Medical decision making narrative: Would certainly recheck labs. Given procedures as noted in the HPI would have concerns about INR going too high and leading to bleeding. He does report that this has happened to him historically. Possible infection as well contributing. Would want to see though culture positive urine before making a switch given complicated nature of his history. Bactrim admittedly will continue to contribute to a potential challenge with regard to managing his INR as well. Hemoglobin is essentially stable. White count is not elevated. INR while elevated is not way out of bounds but at about 3.3. Will need close management in continuity of care. He has been in close contact with the clinic. No increased bleeding over time in the emergency department. Urinalysis with blood and white cells but I would wait to change therapy/antibiotics pending culture results. See patient discharge plan for further discussion/plan Medical Records Medical records reviewed: Yes I reviewed the patient's medical records Lab Data Lab results reviewed: Yes I reviewed the patient's lab results Labs: Lab Results 02/12/24 02/12/24 02/12/24 Range/Units 14:10 14:40 15:06 WBC 8.04 (4.50-11.00) K/uL RBC 4.27 L (4.30-5.90) m/uL Hgb 11.9 L (13.5-17.5) gm/dL Hct 35.2 L (37.0-53.0) % MCV 82 (80-100) fL MCH 28 (26-34) pg MCHC 34 (32-36) gm/dL RDW Coeff of Yunior 14.3 (11.5-15.5) % Plt Count 221 (140-440) K/uL Neut % (Auto) 59.2 (42.0-72.0) % Lymph % (Auto) 23.5 (20-44) % [place] % (Auto) 12.4 H (0.0-11.0) % Eos % (Auto) 2.9 (0.0-7.0) % Baso % (Auto) 0.6 (0.0-3.0) % Neut # (Auto) 4.76 (1.7-7.0) K/uL Lymph # (Auto) 1.89 (0.90-2.90) K/uL [place] # (Auto) 1.00 H (0.00-0.90) K/UL Eos # (Auto) 0.23 (0.00-0.50) K/uL Baso # (Auto) 0.05 (0.00-0.30) K/uL Abs Immat Gran (auto) 0.11 (0.00-0.30) K/uL Imm/Tot Granulo (auto) 1.4 % INR 3.29 H (0.91-1.10) Sodium 133 L (135-149) mmol/L Potassium 3.8 (3.6-5.1) mmol/L Chloride 99 (96-114) mmol/L Carbon Dioxide 23 (20-32) mmol/L Anion Gap 11 (7-15) mEq/L BUN 43 H (7-30) mg/dL Creatinine 1.9 H (0.5-1.5) mg/dL Estimated Creat Clear 35.76 Estimated GFR 38 ml/min Glucose 217 H (60-115) mg/dL Calcium 9.6 (8.4-10.6) mg/dL C-Reactive Protein 0.6 (0.5-1.0) mg/dL Urine Color Red A (Yellow) Urine Appearance Turbid A (Clear) Urine pH 5.5 (5.0-8.5) Ur Specific [place] 1.025 (1.000-1.030) Urine Protein 3+ A (Negative) Urine Glucose (UA) Negative (Negative) Urine Ketones Negative (Negative) Urine Blood 3+ A (Negative) Urine Nitrite Negative (Negative) Urine Bilirubin Negative (Negative) Urine Urobilinogen 0.2 (0.2-1.0) Ur Leukocyte Esterase Trace A (Negative) Urine RBC >100 A (0-2) Urine WBC 25-50 A (0-5) Ur Squamous Epith Cells Few (None-Few) Urine Bacteria Many A (None) Lab Acknowledgement Test Added POC Glucose (60-115) mg/dl 02/12/24 Range/Units 15:55 WBC (4.50-11.00) K/uL RBC (4.30-5.90) m/uL Hgb (13.5-17.5) gm/dL Hct (37.0-53.0) % MCV (80-100) fL MCH (26-34) pg MCHC (32-36) gm/dL RDW Coeff of Yunior (11.5-15.5) % Plt Count (140-440) K/uL Neut % (Auto) (42.0-72.0) % Lymph % (Auto) (20-44) % [place] % (Auto) (0.0-11.0) % Eos % (Auto) (0.0-7.0) % Baso % (Auto) (0.0-3.0) % Neut # (Auto) (1.7-7.0) K/uL Lymph # (Auto) (0.90-2.90) K/uL [place] # (Auto) (0.00-0.90) K/UL Eos # (Auto) (0.00-0.50) K/uL Baso # (Auto) (0.00-0.30) K/uL Abs Immat Gran (auto) (0.00-0.30) K/uL Imm/Tot Granulo (auto) % INR (0.91-1.10) Sodium (135-149) mmol/L Potassium (3.6-5.1) mmol/L Chloride (96-114) mmol/L Carbon Dioxide (20-32) mmol/L Anion Gap (7-15) mEq/L BUN (7-30) mg/dL Creatinine (0.5-1.5) mg/dL Estimated Creat Clear Estimated GFR ml/min Glucose (60-115) mg/dL Calcium (8.4-10.6) mg/dL C-Reactive Protein (0.5-1.0) mg/dL Urine Color (Yellow) Urine Appearance (Clear) Urine pH (5.0-8.5) Ur Specific [place] (1.000-1.030) Urine Protein (Negative) Urine Glucose (UA) (Negative) Urine Ketones (Negative) Urine Blood (Negative) Urine Nitrite (Negative) Urine Bilirubin (Negative) Urine Urobilinogen (0.2-1.0) Ur Leukocyte Esterase (Negative) Urine RBC (0-2) Urine WBC (0-5) Ur Squamous Epith Cells (None-Few) Urine Bacteria (None) Lab Acknowledgement POC Glucose 178 H (60-115) mg/dl Discharge Plan Discharge Clinical Impression: Hematuria Patient Disposition: Home w/ Parent or Adult Additional Instructions: Please refer to these copies of your labs. I do think it is best to discuss with your clinic, the project manager retail of your INR, about where to go with your Coumadin dosing; the continuity is important. Please report results of today to them today or tomorrow morning as you have already taking your Coumadin for today. I think in your case it would be best to culture your urine before making further decisions on your Bactrim/antibiotic. You know this can be affecting your INR as well, but as you said there strong recommendations for you to continue on your Bactrim at this point. I think a follow-up as you have scheduled with Urology should be okay unless your bleeding markedly increases, you are having trouble urinating, developed a fever, marked increase in abdominal pain; all reasons to be seen sooner. Prescriptions: No Action metoprolol tartrate 100 mg tablet 100 mg PO BID hydrochlorothiazide 25 mg tablet 50 mg PO DAILY metformin 500 mg tablet extended release 24 hr 1,000 mg PO BID rosuvastatin 20 mg tablet 20 mg PO QPM insulin glargine [Lantus Solostar U-100 Insulin] 100 unit/mL (3 mL) insulin pen 80 unit subcut Q24H cetirizine 10 mg tablet 10 mg PO DAILY Rx Instructions: Take 1 Tablet (10 mg) by mouth once daily. ferrous sulfate 325 mg (65 mg iron) tablet,delayed release (DR/EC) 325 mg PO DAILY Rx Instructions: Take 1 Tablet (325 mg) by mouth once daily with a meal. liraglutide 0.6 mg/0.1 mL (18 mg/3 mL) pen injector 1.8 mg SUBCUT DAILY Rx Instructions: Inject 1.8 mg subcutaneous once daily. sulfamethoxazole-trimethoprim [Bactrim DS] 800-160 mg tablet 1 tab PO BID warfarin 3 mg tablet 6 mg PO DAILY Qty: 60 0RF torsemide 20 mg tablet 20 mg PO DAILY Qty: 30 0RF Follow Up/Referrals: Opal Richards DO [Primary Care Provider] - Stand Alone Forms: [facility] Info Instructions
[2024-02-12 14:56] LABS: Basophils Absolute Auto 0.05 K/uL (0.00-0.30); Basophils Percent Auto 0.6 % (0.0-3.0); Eosinophils Absolute Auto 0.23 K/uL (0.00-0.50); Eosinophils Percent Auto 2.9 % (0.0-7.0); Hematocrit 35.2 % (37.0-53.0); Hemoglobin* 11.9 gm/dL (13.5-17.5); Immature Granulocytes Abs Auto 0.11 K/uL (0.00-0.30); Immature Granulocytes Pct Auto 1.4 %; Lymphocytes Absolute Auto 1.89 K/uL (0.90-2.90); Lymphocytes Percent Auto 23.5 % (20-44); Mean Corpuscular HGB Conc 34 gm/dL (32-36); Mean Corpuscular Hemoglobin 28 pg (26-34); Mean Corpuscular Volume 82 fL (80-100); Monocytes Percent Auto 12.4 % (0.0-11.0); Neutrophils Absolute Auto 4.76 K/uL (1.7-7.0); Neutrophils Percent Auto 59.2 % (42.0-72.0); Platelet Count* 221 K/uL (140-440); RDW Coefficient of Variation % 14.3 % (11.5-15.5); Red Blood Count 4.27 m/uL (4.30-5.90); White Blood Count* 8.04 K/uL (4.50-11.00)
[2024-02-12 15:15] LABS: Slide Review Reflex No
[2024-02-12 15:16] LABS: Chloride* 99 mmol/L (96-114)
[2024-02-12 15:17] LABS: Potassium* 3.8 mmol/L (3.6-5.1); Sodium* 133 mmol/L (135-149)
[2024-02-12 15:19] LABS: Creatinine* 1.9 mg/dL (0.5-1.5); Est. Creatinine Clearance* 35.76; Estimated Glomerular Filt Rate 38 ml/min
[2024-02-12 15:20] LABS: Anion Gap 11 mEq/L (7-15); Blood Urea Nitrogen* 43 mg/dL (7-30); Calcium* 9.6 mg/dL (8.4-10.6); Carbon Dioxide* 23 mmol/L (20-32); Glucose* 217 mg/dL (60-115); INR 3.29 (0.91-1.10)
--- OUTSIDE RECORDS SUMMARY | 2024-02-12 15:20 | XMS_ITS | Clinical Summary ---
Author Organization [facility] Address [place], [place] [address] Care Team Providers Care Director Oracle Database Name Role Phone Opal Richards DO Primary Care Provider [phone] Allergies Active Allergy Reactions Criticality Noted Date Comments Iodine Hives 10/08/2019 Medications Medication Sig Dispensed Refills Start Date End Date Status Vwtua-7-WTH-EPA-Fi sh Oil 1,000 mg (120 mg-180 mg) [...] be used to read blood sugars, follow packing and final assembly supervisor directions. 9 Each 3 06/21/20 Active Dexcom G7 Office Administration for continuous blood glucose monitor (CGM)Indications:U ncontrolled type 2 diabetes mellitus with hyperglycemia (HC) To be used to read blood sugars follow packing and final assembly supervisor directions. 1 Each 06/21/20 23 Active acetaminophen [...] daily. 36 mL 10/25/19 24 Active Insulin [place], Disposable, (Novofine 32) 32 gauge x 1/4 [...] times daily. 80 Tablet 01/23/20 24 Active cetirizine (ZYRTEC) 10 mg tabletIndications: Environmental allergies Take 1 Tablet (10 mg) by mouth once daily. 30 Tablet 01/25/20 24 Active warfarin (COUMADIN) 3 mg tabletIndications: Right atrial thrombus,Patent foramen ovale,Anticoagulat ion monitoring, INR range 2-3,Anticoagulant long-term use Take by mouth 9 mg (3 mg x 3) every Sun; 6 mg (3 mg x 2) all [...] daily with meals. 360 Tablet 3 03/08/20 024 Discontinued(*A vailability/For mulary change/Cost of medication) [...] 9 mg (3 mg x 3) every Sun; 6 mg (3 mg x 2) all other days in the evening OR as directed 12/20/19 024 Discontinued(Ot her - add note to specify (E-cancel not sent)) warfarin (COUMADIN) 3 mg tabletIndications: Right atrial thrombus,Patent foramen ovale,Anticoagulat ion monitoring, INR range 2-3,Anticoagulant long-term use Take by mouth 5/6: 6 mg; 15: Hold; 16: Hold; 01/24: Hold; 5/18: Hold; 01/26: Hold; Otherwise 9 mg every [...] dose) of 01-27-2024 4 mL 01/25/20 24 Discontinued aspirin 325 mg tablet Take 325 mg by mouth once daily with a meal. Discontinued(*I P Discontinued) trimethoprim-sulfa methoxazole, 160-800 mg, [...] 24 024 Discontinued(Re order (E-cancel not sent)) gabapentin (NEURONTIN) 300 mg capsuleIndications :Urethral pain Take 1 Capsule (300 mg) by mouth two times daily for 15 days. 30 Capsule 01/25/20 24 024 Active Problems Problem Noted Date Diagnosed Date [...] Encounters Date Type Department Care Team Description 02/12/2024 8:45 AM CDT Orders Only [facility] [address] [place] [address] [place], [place] [facility] 02/12/2024 Telephone [facility] [address] [place] [address] Opal Richards, Lab 02/12/2024 Travel 02/11/2024 Orders Only [facility] Scanner 1 scan: (1-Ord) INCOMING RECORDS-EKG, [facility], 02/11/2024 02/11/2024 Orders Only [facility] Scanner 1 scan: (1-Ord) INCOMING RECORDS-CT, [facility], 02/11/2024 02/11/2024 Orders Only [facility] Scanner 1 scan: (1-Ord) INCOMING RECORDS-LABS, [facility], 02/11/2024 02/01/2024 Refill [facility] [address] [place] [address] Radha Prieto MD Refill Request (Metformin) 01/31/2024 Telephone [facility] [address] [place] [address] Opla Richards, Results 01/30/2024 Telephone [facility] [address] [place] [address] Opal Richards DO Anticoagulation (Provider review) 01/30/2024 Anticoagulation (warfarin) [facility] [address] [place] [address] 1, [facility] Anticoagulation 01/29/2024 11:30 AM CDT Orders Only [facility] [address] [place] [address] Lab, [place] [facility] 01/29/2024 Travel 01/26/2024 Telephone [facility] [address] [place] [address] Opal Richards DO Anticoagulation (Unable to contact) 01/25/2024 11:25 AM CDT Office Visit [facility] [address] [place] [address] Arben Sheets DO Hospital F/U (DOD 01/22/2024 - catheter is giving him pain ) 01/25/2024 Travel 01/24/2024 Anticoagulation (warfarin) [facility] [address] [place] [address] 1, [facility] Anticoagulation (Chart update - Colonoscopy cancelled - Post hospital) 01/24/2024 Patient Outreach [facility] [address] [place] [address] Rabia Rodrigues, MAVIS Primary RN Care Management; Hospital F/U (LACE 56) 01/23/2024 Orders Only [facility] [address] [place] [address] Rony Larson MD <No scans attached> 01/22/2024 Telephone [facility] [address] [place] [address] Demetrio Lopez MD Appointment 01/19/2024 11:10 AM CDT Anesthesia Event [facility] [address] [place] [address] Robi White MD Pascoe, Curtis Ortez, [employer] 01/19/2024 10:45 AM CDT - 01/19/2024 12:49 PM CDT Surgery [facility] [address] [place] [address] Glen Chavez MD CYSTOSCOPY, TRANSURETHRAL resection of prostate, UNROOFING OF PROSTATE ABSCESS, dilation of uretheral stricture 01/17/2024 5:08 AM CDT - 01/23/2024 1:39 PM CDT Hospital Encounter [facility] [address] [address] [facility] MD Draisey, DO Amparo Bird, Sunni Young MD Sleep apnea, unspecified type (Primary Dx); Prostate abscess; Pre-op examination; Right atrial thrombus; Patent foramen ovale; Anticoagulation monitoring, INR range 2-3; Anticoagulant long-term use Discharge Disposition: Home Self Care 01/16/[address] [address] Opal Richards, GI update 01/15/[address] [address] Opal Richards, Anticoagulation (BPA-Lovenox) 01/15/[address] [address] Opal Richards, Medication Management (enoxaparin (LOVENOX) 100 mg/mL injection) 01/15/[address] [address] Opal Richards, Medication Management (enoxaparin (LOVENOX) 100 mg/mL injection) 01/15/2024 Orders Only [facility] [address] [place] [address] Opal Richards, <No scans attached> 01/15/[address] [address] Opal Richards, Anticoagulation (BPA- LOVENOX) 01/15/[address] [address] Opal Richarsd, Results 01/14/2024 10:25 AM CDT Preop Visit [address] [address] Opal Richards, Pre-Op Exam ([facility] l[facility] 01/27) 01/14/2024 Anticoagulation (warfarin) [facility] [address] [facility] [address] [facility] 01/14/2024 Telephone [facility] [address] [place] [address] Opal Richards, DO Follow Up 01/14/2024 Telephone [facility] [address] [facility] [address] Opal Richards, DO Results 01/14/2024 Travel 01/04/2024 Orders Only [facility] [address] [facility] [address] Opal Richards, DO <No scans attached> 01/03/2024 11:00 AM CDT Orders Only [facility] [address] [place] [address] [address] Lab[facility] [place] [facility] 01/03/2024 Anticoagulation (warfarin) [facility] [address] [facility] [address] 1, [facility] Anticoagulation 01/03/2024 Travel 12/20/2023 2:15 PM CDT Orders Only [facility] [address] [facility] [address] Lab[facility] [place] [facility] 12/20/2023 Anticoagulation (warfarin) [facility] [address] [facility] [address] 1, [facility] Anticoagulation 12/20/2023 Travel 12/13/2023 11:00 AM CDT Orders Only [facility] [address] [facility] [address] Lab[facility] [place] [facility] 12/13/2023 Anticoagulation (warfarin) [facility] [address] [facility] [address] 1, [facility] Anticoagulation 12/13/2023 Travel 12/06/2023 Telephone [facility] [address] [facility] [address] Opal Richards, DO Medication Management (warfarin (COUMADIN) 3 mg tablet) 12/05/2023 9:35 AM CDT Office Visit [facility] [address] [facility] [address] Opal Richards, Diabetes 12/05/2023 9:15 AM CDT Orders Only [facility] [address] [place] [address] [address] Lab, [place] [facility] 12/05/2023 Anticoagulation (warfarin) [facility] [address] [facility] [address] 1, [facility] Anticoagulation 12/05/2023 Travel 11/28/2023 Telephone [facility] [address] [facility] [address] Opal Richards, DO Diabetes from Last 3 Months Immunizations Name [...] Care Team (Late st Contact Info) Description 02/13/2024 2:00 PM CDT Office Visit [facility] [address] [place] [address] Opal Richards DO [address] [place] [address] 02/26/2024 10:45 AM CDT Office Visit [facility] [address] [address] Rony Larson MD [address] [address] Health Maintenance Due Date Last Done Comments [...] Date/Time Associated Diagnosis Comments PLATELET COUNT STAT 02/12/2024 8:50 AM CDT Right atrial thrombus Patent foramen ovale Anticoagulation monitoring, INR range 2-3 PROTIME-INR STAT 02/12/2024 8:50 AM CDT Right atrial thrombus Patent foramen ovale Anticoagulation monitoring, INR range 2-3 SCAN CORRESP-EKG RESULTS 02/11/2024 12:00 AM CDT SCAN CORRESP-LABORATORY RESULTS 02/11/2024 12:00 AM CDT SCAN CORRESP-IMAGING 02/11/2024 12:00 AM CDT PLATELET COUNT STAT 01/29/2024 11:47 AM CDT [...] to Health Maintenance Results * PLATELET COUNT (02/12/2024 8:50 AM CDT) Only the most recent of6 resultswithin the time period is included. PLATELET COUNT 235 140 - 440 thou/cu mm 02/12/2024 8:59 AM CDT [facility] MPV 10.8 6.5 - 11.0 fL 02/12/2024 8:59 AM CDT [facility] Blood BLOOD SPECIMEN / Unknown Venipuncture / Unknown 02/12/2024 8:50 AM CDT 02/12/2024 8:51 AM CDT Narrative [facility] - 02/12/2024 8:59 AM CDT MD to monitor if out of range, to monitor for Heparin-Induced Thrombocytopenia while on lovenox. Opal Richards DO HEMATOLOGY Performing Organization Address City/[facility]/ZIP Co de Phone Number [facility] [address] [place] [address], [place] [phone] * (ABNORMAL) PROTIME-INR (02/12/2024 8:50 AM CDT) Only the most recent of12 resultswithin the time period is included. INR 4.1(H) <1.3 02/12/2024 3:14 PM CDT [facility] PROTIME 43.4(H) 10.3 - 12.3 sec 02/12/2024 3:14 PM CDT [facility] Blood BLOOD SPECIMEN / Unknown Venipuncture / Unknown 02/12/2024 8:50 AM CDT 02/12/2024 8:51 AM CDT [facility] - 02/12/2024 3:14 PM CDT ?Therapeutic Range 2.0-3.0 for most [...] is on UFH. Opal Richards DO HEMATOLOGY [facility] [address] [place] [address], [place] * SCAN CORRESP-LABORATORY RESULTS (02/11/2024 12:00 AM CDT) Only the most recent of4 resultswithin the time period is included. Scanner OTHER * SCAN CORRESP-EKG RESULTS (02/11/2024 12:00 AM CDT) Only the most recent of2 resultswithin the time period is included. Scanner OTHER * SCAN CORRESP-IMAGING (02/11/2024 12:00 AM CDT) Only the most recent of2 resultswithin the time period is included. Anatomical Region Laterality Modality Other Scanner OTHER * (ABNORMAL) POTASSIUM (01/29/2024 11:47 AM CDT) Only the most recent of4 resultswithin the time period is included. Pathologist [facility] POTASSIUM 5.4(H) 3.5 - 5.1 mmol/L 01/30/2024 2:11 AM CDT [facility] Blood BLOOD SPECIMEN / Unknown Butterfly / Unknown 01/29/2024 11:47 AM CDT 01/29/2024 11:48 AM CDT Opal Richards DO CHEMISTRY [facility] [address] [place] [address], * (ABNORMAL) CREATININE (01/29/2024 11:47 AM CDT) Only the most recent of6 resultswithin the time period is included. Pathologist [facility] eGFR 56(L) >90 mL/min/1.7 3m2 01/30/2024 2:11 AM CDT [facility] [employer] [facility] Comment:As of 2021, eG FR is calculated by the CKD-EPI creatinine equation without race adjustment. ??eGFR can be influenced by muscle mass, exercise, and diet. ??The reported eGFR is an estimation only and is only applicable if the renal function is stable. CREATININE 1.38(H) 0.70 - 1.20 mg/dL 01/30/2024 2:11 AM CDT [facility] Blood BLOOD SPECIMEN / Unknown Butterfly / Unknown 01/29/2024 11:47 AM CDT 01/29/2024 11:48 AM CDT Rony Larson MD CHEMISTRY Performing Organization Address [facility]/ZIP Co de Phone Number [facility] [address] [address], [place] * (ABNORMAL) C-REACTIVE PROTEIN (01/29/2024 11:47 AM CDT) Only the most recent of2 resultswithin the time period is included. C-REACTIVE PROTEIN 0.5(H) <0.5 mg/dL 01/30/2024 2:11 AM CDT [facility] Blood BLOOD SPECIMEN / Unknown Butterfly / Unknown 01/29/2024 11:47 AM CDT 01/29/2024 11:48 AM CDT Opal Richards DO CHEMISTRY Performing Organization Address [facility] Co de Phone Number [facility] [address] [place] [address], [place] * (ABNORMAL) GLUCOSE METER (01/23/2024 7:01 AM CDT) Only the most recent of28 resultswithin the time period is included. GLUCOSE METER 280(H) 65 - 100 mg/dL 01/23/2024 7:02 AM CDT [facility] Blood BLOOD SPECIMEN / Unknown 01/23/2024 7:01 AM CDT 01/23/2024 7:02 AM CDT Sunni Christensen MD CHEMISTRY Performing Organization Address [facility]/ZIP Co de Phone Number [facility] [address] [place] [address], [place] * (ABNORMAL) HEMOGLOBIN (01/23/2024 4:31 AM CDT) Only the most recent of7 resultswithin the time period is included. HEMOGLOBIN 10.3(L) 13.5 - 17.5 g/dL 01/23/2024 5:10 AM CDT [facility] MCV 84 80 - 100 fL 01/23/2024 5:10 AM CDT [facility] Blood BLOOD SPECIMEN / Unknown Venipuncture / Unknown 01/23/2024 4:31 AM CDT 01/23/2024 5:05 AM CDT [facility] - 01/23/2024 5:10 AM CDT Every morning while on IV heparin. Every morning while on IV heparin. Necessary every morning while on IV heparin. Michelle Turner DO HEMATOLOGY Performing Organization Address City/[facility]/ZIP Co de Phone Number [facility] [address] [place] [address], * (ABNORMAL) HEMATOCRIT (01/23/2024 4:31 AM CDT) Only the most recent of4 resultswithin the time period is included. HEMATOCRIT 31.9(L) 37.0 - 53.0 % 01/23/2024 5:10 AM CDT [facility] Blood BLOOD SPECIMEN / Unknown Venipuncture / Unknown 01/23/2024 4:31 AM CDT 01/23/2024 5:05 AM CDT [facility] - 01/23/2024 5:10 AM CDT Every morning while on IV heparin. Every morning while on IV heparin. Necessary every morning while on IV heparin. Michelle Turner DO HEMATOLOGY [facility] [address] [place] [address], * Sodium AM (01/22/2024 5:46 AM CDT) SODIUM 137 136 - 145 mmol/L 01/22/2024 6:27 AM CDT [facility] Blood BLOOD SPECIMEN / Unknown Venipuncture / Unknown 01/22/2024 5:46 AM CDT 01/22/2024 5:58 AM CDT Sunni Christensen MD CHEMISTRY [facility] [address] [place] [address], * VANCOMYCIN TROUGH (01/21/2024 4:09 PM CDT) Only the most recent of2 resultswithin the time period is included. VANCOMYCIN,TRO UGH 12.1 7.0 - 20.0 ug/mL 01/21/2024 4:54 PM CDT [facility] DATE OF LAST DOSE,TROUGH 01/21/2024 01/21/2024 4:54 PM CDT [facility] TIME OF LAST DOSE,TROUGH 4:08 AM 01/21/2024 4:54 PM CDT [facility] Blood BLOOD SPECIMEN / Unknown Venipuncture / Unknown 01/21/2024 4:09 PM CDT 01/21/2024 4:16 PM CDT Sunni Christensen MD CHEMISTRY [facility] [address] [place] [address], * (ABNORMAL) Electrolyte panel AM (01/21/2024 6:21 AM CDT) SODIUM 136 136 - 145 mmol/L 01/21/2024 7:06 AM CDT [facility] POTASSIUM 3.8 3.5 - 5.1 mmol/L 01/21/2024 7:06 AM CDT [facility] CHLORIDE 106 98 - 107 mmol/L 01/21/2024 7:06 AM CDT [facility] CO2,TOTAL 20(L) 22 - 29 mmol/L 01/21/2024 7:06 AM CDT [facility] ANION GAP 10 5 - 18 01/21/2024 7:06 AM CDT [facility] Blood BLOOD SPECIMEN / Unknown Venipuncture / Unknown 01/21/2024 6:21 AM CDT 01/21/2024 6:38 AM CDT Michelle Turner DO CHEMISTRY Performing Organization Address City/[facility] Co de Phone Number [facility] [address] [place] [address], * SCAN-SLEEP STUDY (01/21/2024 12:00 AM CDT) Narrative 01/21/2024 12:00 AM CDT Ordered by an unspecified provider. Other Clinical Staff OTHER * APTT (01/20/2024 9:50 PM CDT) Only the most recent of2 resultswithin the time period is included. APTT 31 28 - 36 sec 01/20/2024 10:14 PM CDT [facility] Blood BLOOD SPECIMEN / Unknown Venipuncture / Unknown 01/20/2024 9:50 PM CDT 01/20/2024 10:02 PM CDT Narrative [facility] - 01/20/2024 10:14 PM CDT Therapeutic Range: 57-87 seconds Sunni Christensen MD HEMATOLOGY Performing Organization Address [facility] Co de Phone Number [facility] [address] [place] [address], * BUN (01/20/2024 11:39 AM CDT) BUN 16 8 - 23 mg/dL 01/20/2024 1:13 PM CDT [facility] Blood BLOOD SPECIMEN / Unknown Venipuncture / Unknown 01/20/2024 11:39 AM CDT 01/20/2024 12:24 PM CDT Michelle Turner DO CHEMISTRY Performing Organization Address [facility] Co de Phone Number [facility] [address] [place] [address], [place] * (ABNORMAL) BASIC METABOLIC PANEL (01/20/2024 3:00 AM CDT) Only the most recent of4 resultswithin the time period is included. SODIUM 136 136 - 145 mmol/L 01/20/2024 3:53 AM CDT [facility] POTASSIUM 4.4 3.5 - 5.1 mmol/L 01/20/2024 3:53 AM T [facility] CHLORIDE 102 98 - 107 mmol/L 01/20/2024 3:53 AM T [facility] CO2,TOTAL 22 22 - 29 mmol/L 01/20/2024 3:53 AM T [facility] ANION GAP 12 5 - 18 01/20/2024 3:53 AM T [facility] GLUCOSE 244(H) 70 - 99 mg/dL 01/20/2024 3:53 AM T [facility] CALCIUM 9.1 8.8 - 10.2 mg/dL 01/20/2024 3:53 AM T [facility] BUN 16 8 - 23 mg/dL 01/20/2024 3:53 AM T [facility] CREATININE 1.21(H) 0.70 - 1.20 mg/dL 01/20/2024 3:53 AM [facility] BUN/CREAT RATIO 13 10 - 20 3:53 AM [facility] eGFR 66(L) >90 mL/min/1.7 3m2 01/20/2024 3:53 AM [facility] Comment:As of 2021, eG FR [...] 3:24 AM CDT Michelle Turner DO CHEMISTRY [facility] [address] [place] [address], * HCHG TUBE PR1, HCHG INSTRUMENT DISP [...] 11.0 thou/cu mm 01/18/2024 6:47 AM CDT [facility] RED BLOOD COUNT 3.91(L) 4.30 - 5.90 mil/cu mm 01/18/2024 6:47 AM CDT [facility] HEMOGLOBIN 11.0(L) 13.5 - 17.5 g/dL 01/18/2024 6:47 AM CDT [facility] HEMATOCRIT 33.5(L) 37.0 - 53.0 % 01/18/2024 6:47 AM CDT [facility] MCV 86 80 - 100 fL 01/18/2024 6:47 AM CDT [facility] MCH 28.1 26.0 - 34.0 pg 01/18/2024 6:47 AM CDT [facility] MCHC 32.8 32.0 - 36.0 g/dL 01/18/2024 6:47 AM CDT [facility] RDW 13.7 11.5 - 15.5 % 01/18/2024 6:47 AM CDT [facility] PLATELET COUNT 228 140 - 440 thou/cu mm 01/18/2024 6:47 AM CDT [facility] MPV 10.0 6.5 - 11.0 fL 01/18/2024 6:47 AM CDT [facility] NRBC 0.0 % 01/18/2024 6:47 AM CDT [facility] ABS NRBC 0.0 thou /cu mm 01/18/2024 6:47 AM CDT [facility] Blood BLOOD SPECIMEN / Unknown Venipuncture / Unknown 01/18/2024 6:16 AM CDT 01/18/2024 6:32 AM CDT Michelle Turner DO HEMATOLOGY [facility] [address] [place] [address], * (ABNORMAL) MRSA/SA PCR (01/17/2024 7:28 PM CDT) Pathologist [facility] MRSA DNA PCR Positive( A) Negative 01/17/2024 10:52 PM CDT [facility] STAPHYLOCOCCUS AUREUS PCR Positive( A) Negative 01/17/2024 10:52 PM CDT [facility] Other SPECIMEN FROM INTERNAL NOSE / Unknown Non-Blood / Unknown 01/17/2024 7:28 PM CDT 01/17/2024 7:41 PM CDT Narrative [facility] - 01/17/2024 10:52 PM CDT A positive test result does not necessarily indicate the presence of viable organisms. It is, however, presumptive for the presence of Methicillin Resistant Staphylococcus aureus (MRSA) or Staphylococcus aureus. Michelle Turner DO MICROBIOLOGY Performing Organization Address [facility] Co de Phone Number [facility] [address] * (ABNORMAL) WHITE BLOOD COUNT (01/17/2024 1:18 PM CDT) WHITE BLOOD COUNT 17.8(H) 4.5 - 11.0 thou/cu mm 01/17/2024 1:50 PM CDT [facility] NRBC 0.0 % 01/17/2024 1:50 PM CDT [facility] ABS NRBC 0.0 thou /cu mm 01/17/2024 1:50 PM CDT [facility] Blood BLOOD SPECIMEN / Unknown Butterfly / Unknown 01/17/2024 1:18 PM CDT 01/17/2024 1:30 PM CDT Michelle Turner DO HEMATOLOGY Performing Organization Address [facility] Co de Phone Number [facility] [address] * SCAN-CARDIAC STRIP (01/17/2024 12:00 AM CDT) Narrative 01/17/2024 12:00 AM CDT Ordered by an unspecified provider. Other Clinical Staff OTHER * (ABNORMAL) LIVER PANEL (HEPATIC FUNCTION PANEL) (01/14/2024 11:52 AM CDT) ALBUMIN 4.4 4.0 - 4.9 g/dL 01/14/2024 10:44 PM CDT [facility] PROTEIN,TOTAL 8.7(H) 6.0 - 8.0 g/dL 01/14/2024 10:44 PM CDT [facility] BILIRUBIN,TOTAL 0.4 0.0 - 1.2 mg/dL 01/14/2024 10:44 PM CDT [facility] BILIRUBIN,DIRECT <0.2 0.0 - 0.3 mg/dL 01/14/2024 10:44 PM CDT [facility] BILIRUBIN,INDIRE CT 01/14/2024 10:44 PM CDT [facility] Comment:Unable to calculate, Direct Bili <0.2 ALK PHOSPHATASE 76 40 - 129 IU/L 01/14/2024 10:44 PM CDT [facility] ALT (SGPT) 31 10 - 50 IU/L 01/14/2024 10:44 PM CDT [facility] AST (SGOT) 35 10 - 50 IU/L 01/14/2024 10:44 PM CDT [facility] Blood BLOOD SPECIMEN / Unknown Butterfly / Unknown 01/14/2024 11:52 AM CDT 01/14/2024 11:53 AM CDT Opal Richards CHEMISTRY Performing Organization Address City/[facility]/ZIP Co de Phone Number [facility] [address] [place] [address], [place] * MAGNESIUM (01/14/2024 10:40 AM CDT) MAGNESIUM 1.6 1.6 - 2.4 mg/dL 01/14/2024 6:22 PM CDT [facility] Blood BLOOD SPECIMEN / Unknown Venipuncture / Unknown 01/14/2024 10:40 AM CDT 01/14/2024 10:40 AM CDT [employer] [email or web address] CHEMISTRY [facility] [address] [place] [address], [place] * (ABNORMAL) IRON PLUS IRON BINDING CAP (01/03/2024 11:04 AM CDT) IRON 48(L) 61 - 157 ug/dL 01/03/2024 10:03 PM CDT [facility] UIBC (UNSATURATED) 302 112 - 347 ug/dL 01/03/2024 10:03 PM CDT [facility] IRON BINDING CAPACITY 350 250 - 400 ug/dL 01/03/2024 10:03 PM CDT [facility] IRON,% SATURATION 14 14 - 50 % 01/03/2024 10:03 PM CDT [facility] Blood BLOOD SPECIMEN / Unknown Butterfly / Unknown 01/03/2024 11:04 AM CDT 01/03/2024 11:04 AM CDT Opal Richards DO CHEMISTRY Performing Organization Address City/[facility]/ZIP Co de Phone Number [facility] [address] [place] [address], [place] * FERRITIN (01/03/2024 11:04 AM CDT) FERRITIN 311.0 30.0 - 400.0 ng/mL 01/03/2024 10:03 PM CDT [facility] Blood BLOOD SPECIMEN / Unknown Butterfly / Unknown 01/03/2024 11:04 AM CDT 01/03/2024 11:04 AM CDT Opal Richards DO CHEMISTRY Performing Organization Address City/[facility]/ZIP Co de Phone Number [facility] [address] [place] [address], [place] * (ABNORMAL) INR,POCT (12/20/2023 2:25 PM CDT) Only the most recent of3 resultswithin the time period is included. INR 2.2(H) <1.3 12/20/2023 2:28 PM CDT [facility] Blood BLOOD SPECIMEN / Unknown 12/20/2023 2:25 PM CDT 12/20/2023 2:28 PM CDT Narrative [facility] - 12/20/2023 2:28 PM CDT ?Therapeutic Range 2.0-3.0 for most anticoagulated patients 2.5-3.5 or 4.0 for high risk patients Opal Richards DO LABORATORY Performing Organization Address [facility] Co de Phone Number [facility] [address] [place] [address], * (ABNORMAL) HEMOGLOBIN A1C MONITORING (POCT) (12/05/2023 9:20 AM CDT) HEMOGLOBIN A1C MONITORING (POCT) 12.5(H) <=6.4 % 12/05/2023 9:46 AM CDT [facility] Blood BLOOD SPECIMEN / Unknown Capillary / Unknown 12/05/2023 9:20 AM CDT 12/05/2023 9:24 AM CDT Narrative [facility] - 12/05/2023 9:46 AM CDT ? (<=6.9%) [...] Richards DO CHEMISTRY Performing Organization Address [facility]/ZIP Co de Phone Number [facility] [address] [place] [address], [place] [phone] * [place] ABD AORTA SCREENING [[id number]] (07/02/2023 9:12 AM CDT) Anatomical Region Laterality Modality Abdomen, AORTA Ultrasound 07/02/2023 10:0 6 AM CDT Narrative 07/02/2023 10:06 AM CDT For Patients: ??As a result of the 21st Century Cures Act, medical imaging exams and procedure [...] - 199 mg/dL 06/20/2023 7:00 AM CDT [facility] Comment: Cholesterol, Total Reference Ranges Desirable <200 mg/dL Borderline 200-239 mg/dL High >=240 mg/dL TRIGLYCERIDES 530(H) <150 mg/dL 06/20/2023 7:00 AM CDT [facility] HDL CHOLESTEROL 30(L) >40 mg/dL 3 7:00 AM CDT [facility] NON-HDL CHOLESTEROL 129 <145 mg/dl 06/20/2023 7:00 AM T [facility] CHOL/HDL RATIO 5.30(H) <4.50 06/20/2023 7:00 AM CDT [facility] LDL CHOLESTEROL 3 7:00 AM CDT [facility] Comment:Invalid LDL when Tri g >400. VLDL CHOLESTEROL COMMENT 06/20/2023 7:00 AM CDT [facility] Comment:Unable to calculate VLDL. PROVIDER ORDERED STATUS RANDOM 06/20/2023 7:00 AM CDT [facility] Blood BLOOD SPECIMEN / Unknown Venipuncture / Unknown 06/19/2023 11:13 AM CDT 06/19/2023 11:15 AM CDT Opal Richards DO CHEMISTRY [facility] [address] [place] [address], * ANTI HCV (02/27/2020 2:02 PM CDT) HEPATITIS C ANTIBODY Non-React gennaro Non-React gennaro 02/27/2020 8:36 PM CDT [facility] Comment:Antibodies to HCV no t detected; does not exclude the possibility of exposure to HCV. Blood BLOOD SPECIMEN / Unknown Butterfly / Unknown 02/27/2020 2:02 PM CDT 02/27/2020 2:03 PM CDT Radha Prieto MD SEND OUTS [facility] [address] [place] [address], [place] * SCAN-COLONOSCOPY (12/31/2017 12:00 AM CDT) [...] 12 months since positive culture): resides in acute/residential care, receiving hemodialysis, has chronic open wounds/skin [...] Code Status Discussion: Reviewed Preferences Care Teams Director Oracle Database Relationship Specialty Start Date End Date [place] [address] [address] PCP - General Family Practice 06/21/23
[2024-02-12 15:33] LABS: C Reactive Protein* 0.6 mg/dL (0.5-1.0)
[2024-02-12 15:55] VITALS: BP 127/74; PULSE 79; RESP 16; O2SAT 96
[2024-02-12 15:56] LABS: Glucose, Point-of-Care* 178 mg/dl (60-115)
--- NOTE | 2024-02-14 14:38 | W.ED.CHARTNO ---
ED Chart Note Chart Note Details Date: 02/14/24 Details: Nursing staff brought patient's urine culture as part of routine follow-up testing protocol in the ED. He had E coli greater than 100,000 colony-forming units. He reportedly was on Bactrim and there is resistance to this. When I reviewed his chart, this is a complex patient who and had a recent drainage of a prostate abscess, was on Bactrim for that for a duration of 6 weeks. He had seen ID through [facility]. We did page Henry and Dr. Castanon did get faxed his urine culture results. She did call us back and wanted the patient on Keflex 500 mg t.i.d. for 7 days and to continue the Bactrim for the prostate abscess. We will get this called in for the patient and he will be notified by nursing staff.
== END 2024-02-12 16:46 | disposition home or self-care (01) ==
PROVIDERS: Emergency Provider Family Medicine; PCP Family Medicine
DX: R31.9 Hematuria, unspecified (principal)
CPT/HCPCS: 36415; 80048; 81001; 82947; 85025; 85610; 86140; 87086; 87186; 99283; 99284

== ENCOUNTER 2024-03-17 11:21 | Emergency (ER) | payer MEDICARE, SELFPAY ==
[2024-03-17 11:30] VITALS: BP 153/83; PULSE 79; RESP 20; TEMP 35.9; O2SAT 94; BMI 41.5
--- NOTE | 2024-03-17 11:42 | ED_ITS ---
HPI - General Adult General Time Seen by Provider: 11:42 Date Seen: 03/17/24 Chief complaint: Headache/Migraine Stated complaint: Headache x4days, fluid retention, weight gain Time Seen by Provider: 03/17/24 11:41 Source: patient, RN notes reviewed and old records reviewed Mode of arrival: ambulatory Limitations: no limitations History of Present Illness HPI narrative: 68-year-old male who presents today with multiple complaint including fluid retention and weight gain, also headache with no history of trauma or injury. Patient notes 4 days of generalized headache with minimal improvement with Tylenol, no head injury, no nausea vomiting, no blurry vision. Also concerned about fatigue which is been going on about the same amount of time, decreased appetite, weight gain and abdominal bloating. Denies orthopnea, breathing difficulty, chest pain. Feels like he has some sinus congestion has not been using his CPAP due to the fact that this makes him feel like he is choking. Denies fevers or chills. Recently completed Bactrim. Related Data Home Medications ?Medication ?Instructions ?Recorded ?Confirmed hydrochlorothiazide 25 mg tablet 50 mg PO DAILY 09/04/23 03/17/24 insulin glargine 100 unit/mL (3 80 unit subcut Q24H 09/04/23 03/17/24 mL) subcutaneous pen (Lantus Solostar U-100 Insulin) metformin 500 mg tablet,extended 1,000 mg PO BID 09/04/23 03/17/24 release 24 hr metoprolol tartrate 100 mg tablet 100 mg PO BID 09/04/23 03/17/24 rosuvastatin 20 mg tablet 20 mg PO QPM 09/04/23 03/17/24 cetirizine 10 mg tablet 10 mg PO DAILY 02/06/24 03/17/24 ferrous sulfate 325 mg (65 mg 325 mg PO DAILY 02/06/24 03/17/24 iron) tablet,delayed release liraglutide 0.6 mg/0.1 mL (18 mg/3 1.8 mg subcut DAILY 02/06/24 03/17/24 mL) subcutaneous pen injector amlodipine 10 mg tablet mg 03/17/24 potassium chloride 20 mEq meq PO 03/17/24 tablet,extended release Previous Rx's ?Medication ?Instructions ?Recorded torsemide 20 mg tablet 20 mg PO DAILY #30 tabs 02/07/24 warfarin 3 mg tablet 6 mg (2 x 3 mg) PO DAILY #60 tabs 02/07/24 cefuroxime axetil 500 mg tablet 500 mg PO BID 7 days #14 tabs 03/17/24 sulfamethoxazole 800 1 tab PO BID #14 tabs 03/17/24 mg-trimethoprim 160 mg tablet (Bactrim DS) Allergies Allergy/AdvReac Type Severity Reaction Status Date / Time No Known Drug Allergies Allergy Verified 03/17/24 11:35 PFSH [facility] Medical History Abscess of prostate ?N41.2 - Abscess of prostate (ICD-10) MRSA (methicillin resistant Staphylococcus aureus) ?A49.02 - Methicillin resistant Staphylococcus aureus infection, unspecified site (ICD-10) CKD (chronic kidney disease) stage 2, GFR 60-89 ml/min (01/17/24) ?N18.2 - Chronic kidney disease, stage 2 (mild) (ICD-10) Sleep apnea (03/30/16) ?G47.30 - Sleep apnea, unspecified (ICD-10) Right atrial thrombus (10/08/19) ?I51.3 - Intracardiac thrombosis, not elsewhere classified (ICD-10) Polyp of colon (12/31/17) ?K63.5 - Polyp of colon (ICD-10) Patent foramen ovale (10/09/16) ?Q21.12 - Patent foramen ovale (ICD-10) Obesity, morbid (03/07/23) ?E66.01 - Morbid (severe) obesity due to excess calories (ICD-10) Mixed hyperlipidemia (03/19/17) ?E78.2 - Mixed hyperlipidemia (ICD-10) Melena (12/10/17) ?K92.1 - Melena (ICD-10) Hypertensive urgency (10/16/17) ?I16.0 - Hypertensive urgency (ICD-10) Hypertension (03/30/16) ?I10 - Essential (primary) hypertension (ICD-10) H/O bacterial endocarditis (06/21/18) ?Z86.79 - Personal history of other diseases of the circulatory system (ICD- 10) Fatigue (11/21/18) ?R53.83 - Other fatigue (ICD-10) Edema of lower extremity (03/14/19) ?R60.0 - Localized edema (ICD-10) Type 2 diabetes mellitus (03/03/11) ?E11.9 - Type 2 diabetes mellitus without complications (ICD-10) Cardiomyopathy (07/10/18) ?I42.9 - Cardiomyopathy, unspecified (ICD-10) Ascending aorta dilation (07/02/23) ?I77.810 - Thoracic aortic ectasia (ICD-10) Anticoagulation monitoring, INR range 2-3 (10/09/19) ?Z79.01 - senior living (current) use of anticoagulants (ICD-10) Adenomatous colon polyp (01/01/18) ?D12.6 - Benign neoplasm of colon, unspecified (ICD-10) Surgical History H/O cystoscopy ?Z98.890 - Other specified postprocedural states (ICD-10) H/O colonoscopy ?Z98.890 - Other specified postprocedural states (ICD-10) Social History Narrative: Denies tobacco or alcohol use. Wishes to be FULL CODE. What is your current living situation?: I presently have a place to live Problems where you live: no known problems Problems where you live details: no known problem In the past 12 months, utilities in danger of being shut off: no In past 12 months, lack of transportation kept you from medical appts, meetings, work, or getting things needed for daily living: no In the past 12 mos, have been you worried that your food would run out before you had money to buy more?: never true In the past 12 mos, the food you bought just didn't last and you didn't have money to buy more?: never true Smoking Status: Former smoker Do you use any of these nicotine containing products: None Second hand tobacco smoke exposure: No How often do you have a drink containing alcohol: monthly or less How often do you have six or more drinks on one occasion: Never AUDIT-C Alcohol total score: 1 Non-prescribed substance use: denies use Caffeine: Yes (Coffee) How often does anyone, including family, friends and others, physically hurt you : never How often does anyone, including family, friends and others, insult or talk down to you: never How often does anyone, including family, friends and others, threaten you with harm: never How often does anyone, including family, friends and others, scream or curse at you: never service: No Exam Narrative: Exam Narrative: General: Well-developed and well-nourished, no acute distress Head: Atraumatic and normocephalic Eyes: Pupils are equal reactive, extraocular motions intact, conjunctiva clear ENT: External nose and ears are normal, posterior pharynx without erythema or exudate Neck: No midline cervical tenderness, full spontaneous range of motion the neck, trachea midline, no adenopathy Heart: Regular rate and rhythm no murmurs or thrills Lungs: Clear to auscultation bilaterally without wheezes or crackles Abdomen: Soft, nontender, mild distension with active bowel sounds Musculoskeletal: No tenderness, deformity, or edema Neurologic: Awake, alert, and oriented x3, no gross focal neurologic deficits, cranial nerves intact as tested Psych: Mood and affect are appropriate Skin: No rashes Const: Vital Signs, click to edit/add: Vital Signs - 24 hr 03/17/24 11:30 03/17/24 14:07 Temperature 96.6 F L Pulse Rate [Pulse Oximeter] 79 79 Respiratory Rate 20 Blood Pressure [Ri ght Upper Arm] 153/83 H Pulse Oximetry 94 Oxygen Delivery Me thod Room Air Course Course ED Course: Reviewed most recent admission from January 2024 when patient had hyperkalemia likely related to Bactrim which he was taking for 6 weeks for a prostatic abscess, also known chronic kidney disease with baseline creatinine about 1.3, anticoagulation, known cardiomyopathy. Patient presents today with fatigue, decreased appetite, headache, and sensation of abdominal bloating. On exam here, lungs are clear, no tachycardia, no respiratory distress. Abdominal distension but no tenderness, question of fluid weight. Trace lower extremity edema bilaterally. No abdominal tenderness. Labs ordered along with CT scan of the chest, abdomen, pelvis to evaluate for fluid retention, pleural effusion, ascites, pneumonia, or other pathology to explain patient's generalized weakness Reevaluation(s) Time of Reevaluation #1: 12:40 Reevaluation #1: EKG independently interpreted by me performed at 12:29 p.m. demonstrates sinus rhythm first-degree AV block, no acute ischemic changes, rate 79, normal axis, ND 322, QTC 415. No change from prior of February 05 Time of Reevaluation #2: 12:48 Reevaluation #2: CT scan of the head independently interpreted by me does not demonstrate any acute intracranial findings. Labs independently interpreted by me with normal CBC, INR 1.05 sodium [address] scan of the chest independently interpreted by me does not demonstrate acute pleural effusion, pericardial effusion, or infiltrate. CT scan of the abdomen pelvis independently interpreted by me does not demonstrate any acute ascites, some hypodense lesions in the liver reviewed which may be hemangiomas. Time of Reevaluation #3: 13:48 Reevaluation #3: Labs ordered in panel interpreted by me with urinalysis with 2+ glucose, 1+ ketones, 50-100 white cells and 25-50 red cells with moderate bacteria, quite concerning and patient's recent prolonged treatment for a prostatic abscess. Will discuss with Infectious Disease. Additional Reevaluation(s): 13:55 Called [facility] to speak with ID. 14:25 Unable to speak with ID at [facility], patient accepted for transfer by Dr. Sandoval, hospitalist. 14:35 Message left with ANW ID [id number] Larson, FLAVIA who is familiar with the patient. Recommends restarting Bactrim as well as Ceftin both b.i.d. for 1 week with plan to tailor once cultures are done. He can be reached on his pager at [phone]. Did contact [facility] to cancel transfer. Vital Signs Vital signs: Initial Vital Signs Temperature 96.6 F L 03/17/24 11:30 Temperature Source Temporal Artery Scan 03/17/24 11:30 Pulse Rate 79 03/17/24 11:30 Respiratory Rate 20 03/17/24 11:30 Blood Pressure 153/83 H 03/17/24 11:30 Blood Pressure Mean 106 H 03/17/24 11:30 Blood Pressure Position Sitting 03/17/24 11:30 Pulse Oximetry 94 03/17/24 11:30 Oxygen Delivery Method Room Air 03/17/24 11:30 Vital Signs Temperature 96.6 F L 03/17/24 11:30 Pulse Rate 79 03/17/24 11:30 Respiratory Rate 20 03/17/24 11:30 Blood Pressure 153/83 H 03/17/24 11:30 Pulse Oximetry 94 03/17/24 11:30 Oxygen Delivery Method Room Air 03/17/24 11:30 Temperature 96.6 F L 03/17/24 11:30 Pulse Rate 79 03/17/24 14:07 Respiratory Rate 20 03/17/24 11:30 Blood Pressure 153/83 H 03/17/24 11:30 Pulse Oximetry 94 03/17/24 11:30 Oxygen Delivery Method Room Air 03/17/24 11:30 Medications Administered Medications: Discontinued Medications Generic Name Dose Route Start Last Admin Trade Name Parveen PRN Reason Stop Dose Admin Ketorolac Tromethamine 15 mg 03/17/24 13:46 03/17/24 13:52 Ketorolac 15 Mg/Ml Inj IVP 03/17/24 13:47 15 mg ONCE ONE Administration Medical Decision Making Lab Data Labs: Lab Results 03/17/24 03/17/24 03/17/24 Range/Units 12:03 12:15 13:00 WBC 5.83 (4.50-11.00) K/uL RBC 4.14 L (4.30-5.90) m/uL Hgb 12.0 L (13.5-17.5) gm/dL Hct 35.9 L (37.0-53.0) % MCV 87 (80-100) fL MCH 29 (26-34) pg MCHC 33 (32-36) gm/dL RDW Coeff of Yunior 16.8 H (11.5-15.5) % Plt Count 208 (140-440) K/uL Neut % (Auto) 62.4 (42.0-72.0) % Lymph % (Auto) 18.4 L (20-44) % [place] % (Auto) 13.2 H (0.0-11.0) % Eos % (Auto) 4.8 (0.0-7.0) % Baso % (Auto) 0.5 (0.0-3.0) % Neut # (Auto) 3.64 (1.7-7.0) K/uL Lymph # (Auto) 1.10 (0.90-2.90) K/uL [place] # (Auto) 0.80 (0.00-0.90) K/UL Eos # (Auto) 0.28 (0.00-0.50) K/uL Baso # (Auto) 0.03 (0.00-0.30) K/uL Abs Immat Gran (auto) 0.04 (0.00-0.30) K/uL Imm/Tot Granulo (auto) 0.7 % INR 1.05 (0.91-1.10) Sodium 138 (135-149) mmol/L Potassium 4.1 (3.6-5.1) mmol/L Chloride 104 (96-114) mmol/L Carbon Dioxide 24 (20-32) mmol/L Anion Gap 10 (7-15) mEq/L BUN 16 (7-30) mg/dL Creatinine 0.9 (0.5-1.5) mg/dL Estimated Creat Clear 67.94 Estimated GFR 94 ml/min Glucose 281 H (60-115) mg/dL Calcium 9.5 (8.4-10.6) mg/dL Magnesium 1.7 (1.5-2.6) mg/dL Total Bilirubin 0.4 (0.1-1.5) mg/dL Direct Bilirubin 0.2 (0.0-0.5) mg/dL AST 42 H (12-35) U/L ALT 39 (4-50) U/L Alkaline Phosphatase 68 (40-150) U/L NT-Pro-B Natriuret Pep 172 pg/mL Total Protein 7.2 (6.0-8.3) g/dL Albumin 4.3 (3.3-5.0) g/dL Urine Color Other A (Yellow) Urine Appearance Clear (Clear) Urine pH 6.0 (5.0-8.5) Ur Specific [place] 1.025 (1.000-1.030) Urine Protein 2+ A (Negative) Urine Glucose (UA) 2+ A (Negative) Urine Ketones 1+ A (Negative) Urine Blood 2+ A (Negative) Urine Nitrite Negative (Negative) Urine Bilirubin Negative (Negative) Urine Urobilinogen 1.0 (0.2-1.0) Ur Leukocyte Esterase 1+ A (Negative) Urine RBC 25-50 A (0-2) Urine WBC 50-100 A (0-5) Ur Squamous Epith Cells Few (None-Few) Urine Bacteria Moderate A (None) SARS-CoV-2 (PCR) Negative SARS-CoV-2 (Negative) Influenza Type A (PCR) Negative PCR FLU A (Negative) Influenza Type B (PCR) Negative PCR FLU B (Negative) RSV (PCR) Negative PCR RSV (Negative) POC Troponin I 0.01 (0.01-0.04) ng/ml Discharge Plan Discharge Clinical Impression: CKD (chronic kidney disease) stage 2, GFR 60-89 ml/min, Subtherapeutic international normalized ratio (INR), Abdominal bloating, Fatigue, Recurrent UTI Patient Disposition: Home, Self-Care Condition: Stable Instructions: Urinary Tract Infection in Men (DC), Chronic Kidney Disease Diet (DC), Fatigue (ED) Additional Instructions: Take Bactrim and Ceftin until urine cultures are resulted to better focus treatment Activity Level: Activity as Tolerated Discharge Diet: Diabetic and Heart Healthy (2 gm sodium, low fat) Prescriptions: New sulfamethoxazole-trimethoprim [Bactrim DS] 800-160 mg tablet 1 tab PO BID Qty: 14 0RF cefuroxime axetil 500 mg tablet 500 mg PO BID 7 Days Qty: 14 0RF No Action metoprolol tartrate 100 mg tablet 100 mg PO BID hydrochlorothiazide 25 mg tablet 50 mg PO DAILY Hold Instructions: held with high K- has not been told to restart it metformin 500 mg tablet extended release 24 hr 1,000 mg PO BID rosuvastatin 20 mg tablet 20 mg PO QPM insulin glargine [Lantus Solostar U-100 Insulin] 100 unit/mL (3 mL) insulin pen 80 unit subcut Q24H amlodipine 10 mg tablet Rx Instructions: Take 1 Tablet (10 mg) by mouth once daily. potassium chloride 20 mEq tablet extended release PO Rx Instructions: Take 1 Tablet (20 mEq) by mouth once daily with a meal. cetirizine 10 mg tablet 10 mg PO DAILY Hold Instructions: per aptient Rx Instructions: Take 1 Tablet (10 mg) by mouth once daily. ferrous sulfate 325 mg (65 mg iron) tablet,delayed release (DR/EC) 325 mg PO DAILY Hold Instructions: upsetting stomach per patient Rx Instructions: Take 1 Tablet (325 mg) by mouth once daily with a meal. liraglutide 0.6 mg/0.1 mL (18 mg/3 mL) pen injector 1.8 mg SUBCUT DAILY Rx Instructions: Inject 1.8 mg subcutaneous once daily. warfarin 3 mg tablet 6 mg PO DAILY Qty: 60 0RF torsemide 20 mg tablet 20 mg PO DAILY Qty: 30 0RF Follow Up/Referrals: Maurice,Opal K, DO [Primary Care Provider] - Stand Alone Forms: [employer] Info Instructions
--- NOTE | 2024-03-17 12:02 | CRLHL7_ITS ---
For Patients: As a result of the Century Cures Act, medical imaging exams and procedure reports are released immediately into your electronic medical record. You may view this report before your referring provider. If you have questions, please contact your health care provider. INDICATION: New headache. Anticoagulant, concern for bleed. TECHNIQUE: CT head without contrast. COMPARISON: None. FINDINGS: Mild volume loss. Calcifications in the bilateral basal ganglia. Mild ill-defined low-attenuation in the periventricular and subcortical white matter. Intracranial atherosclerosis. There is no mass effect or midline shift. No hydrocephalus. No CT evidence of acute hemorrhage or infarction. No abnormal extra-axial fluid collection. Bone windows show no acute calvarial fracture. Paranasal sinuses and orbits as imaged are unremarkable. IMPRESSION: No acute intracranial abnormality. Dictated by Guanaco Davila MD @ 03/17/2024 1:10:45 PM Please note that all CT scans at this facility use dose modulation, iterative reconstruction, and/or weight-based dosing when appropriate to reduce radiation dose to as low as reasonably achievable. Dictated by: Guanaco Davila MD @ 03/17/2024 13:11:02 (Electronically Signed)
--- NOTE | 2024-03-17 12:02 | CRLHL7_ITS ---
For Patients: As a result of the Century Cures Act, medical imaging exams and procedure reports are released immediately into your electronic medical record. You may view this report before your referring provider. If you have questions, please contact your health care provider. INDICATION: Abdominal distention, cough. TECHNIQUE: CT chest, abdomen and pelvis acquired without contrast. COMPARISON: CT abdomen/pelvis performed February 05, 2024. FINDINGS: CHEST: Cardiovascular structures: Heart size is normal. Coronary artery calcifications. Thoracic aorta and main pulmonary artery are normal in caliber. Mediastinum and katina: No mass or adenopathy. Lungs and pleura: Lungs and pleural spaces are clear. No suspicious nodules, infiltrates, or effusions. Chest wall and axilla: No mass or adenopathy. Bones: No suspicious bone lesions. Unremarkable for age. ABDOMEN AND PELVIS: Liver: Stable scattered hepatic cysts. Gallbladder and bile ducts: Cholelithiasis. Pancreas: Unremarkable. Spleen: Unremarkable. Adrenal glands: Unremarkable. Kidneys: No hydronephrosis. Stable 3 millimeter nonobstructing distal left ureteral stone.. GI tract: Moderate colonic stool burden. No bowel obstruction. Vascular structures: Aortoiliac arterial calcifications. Abdominal aorta is normal in caliber. Lymph nodes: Stable mildly prominent iliac chain and pelvic sidewall lymph nodes. Miscellaneous: Unremarkable. No free air or significant free fluid. Pelvic Organs: Mildly distended bladder. Bones: No suspicious bone lesions. Unremarkable for age. IMPRESSION: No acute intrathoracic or intra-abdominal/pelvic abnormality. No significant interval change of the abdomen/pelvis when compared to prior study performed February 05, 2024. Moderate colonic stool burden. Stable 3 millimeter nonobstructing distal left ureteral stone. Cholelithiasis without cholecystitis. Additional chronic findings as above. Please note that all CT scans at this facility use dose modulation, iterative reconstruction, and/or weight-based dosing when appropriate to reduce radiation dose to as low as reasonably achievable. Dictated by Alejandro Young MD @ 03/17/2024 1:16:35 PM (Electronically Signed)
--- OUTSIDE RECORDS SUMMARY | 2024-03-17 12:23 | XMS_ITS | Clinical Summary ---
Author Organization [facility] Address [place], [place] [address] Care Team Providers Care Paper Hanger Name Role Phone Opal Richards DO Primary Care Provider [phone] Allergies Active Allergy Reactions Criticality Noted Date Comments Iodine Hives 10/08/2019 Medications Medication Sig Dispensed Refills Start Date End Date Status Vswps-3-HTG-EPA-Fis h Oil 1,000 mg (120 mg-180 mg) capIndications:Hype rlipidemia, unspecified hyperlipidemia type Take 1 capsule by mouth once daily. 90 capsule 3 0 Active Microlet LancetIndications:U ncontrolled type 2 diabetes mellitus with hyperglycemia (HC) USE TO TEST BLOOD GLUCOSE FOUR TIMES A DAY 400 Each 3 2 Active amLODIPine (NORVASC) 10 mg tabletIndications:H ypertension Take 1 Tablet (10 mg) by mouth once daily. 90 Tablet 3 3 Active blood-glucose meterIndications:Un controlled type 2 diabetes mellitus with hyperglycemia (HC) As directed. Dispense meter, test strips, lancets covered by pt ins. E11.65 NIDDM type II, uncontrolled - Test 4 times/day. Reason: High A1C 1 Each 3 Active lisinopriL (PRINIVIL; ZESTRIL) 40 mg tabletIndications:H ypertension Take 1 Tablet (40 mg) by mouth once daily. 90 Tablet 3 3 Active potassium chloride (K-TAB) 20 mEq extended-release tabletIndications:H ypokalemia Take 1 Tablet (20 mEq) by mouth once daily with a meal. 90 Tablet 3 3 Active spironolactone (ALDACTONE) 50 mg tabletIndications:H TN (hypertension) Take 1 Tablet (50 mg) by mouth every morning. 100 Tablet 3 3 Active blood sugar diagnostic (Accu-Chek Guide test strips) stripIndications:Un controlled type 2 diabetes mellitus with hyperglycemia (HC) TEST 4 TIMES PER DAY DIRECTED 400 Each 3 3 Active Dexcom G7 Sensor for continuous blood glucose monitor (CGM)Indications:Un controlled type 2 diabetes mellitus with hyperglycemia (HC) To be used to read blood sugars, follow heat treating bluer directions. 9 Each 3 3 Active Dexcom G7 Blacktop Paver Operator for continuous blood glucose monitor (CGM)Indications:Un controlled type 2 diabetes mellitus with hyperglycemia (HC) To be used to read blood sugars follow heat treating bluer directions. 1 Each 3 Active acetaminophen (TYLENOL EXTRA STRGTH) 500 mg tablet Take 500-1,000 mg by mouth every 6 hours if needed for Pain. Max acetaminophen dose: 4000mg in 24 hrs. 0 3 Active rosuvastatin (CRESTOR) 20 mg tabletIndications:H yperlipidemia, unspecified hyperlipidemia type Take 1 Tablet (20 mg) by mouth at bedtime. 90 Tablet 2 3 Active metoprolol tartrate (LOPRESSOR) 100 mg tabletIndications:H ypertension Take 1 Tablet (100 mg) by mouth two times daily. 180 Tablet 2 4 Active liraglutide (VICTOZA) 0.6 mg/0.1 mL (18 mg/3 mL) subcutaneous pen Inject 1.8 mg subcutaneous once daily. 36 mL 4 Active Insulin [place], Disposable, (Novofine 32) 32 gauge x 1/4 To be used once daily with Victoza 200 Each 2 4 Active ferrous sulfate 325 mg delayed release tabletIndications:I lillie deficiency anemia, unspecified iron deficiency anemia type Take 1 Tablet (325 mg) by mouth once daily with a meal. 90 Tablet 4 Active multivitamins-data miner als-lutein (Multivitamin 50 Plus) tab tablet Take 1 Tablet by mouth once daily. Active oxygen-air delivery systems (HOME OXYGEN)Indications: Sleep apnea, unspecified type Oxygen for home use. Liters per minute: 2-3 per nasal cannula. Frequency of use: Nocturnal;. Length of need: 999 Months. 1 Each 4 Active trimethoprim-sulfam ethoxazole, 160-800 mg, (BACTRIM DS, SEPTRA DS) tabIndications:Pros yu abscess Take 1 Tablet by mouth two times daily. 80 Tablet 4 Active cetirizine (ZYRTEC) 10 mg tabletIndications:E nvironmental allergies Take 1 Tablet (10 mg) by mouth once daily. 30 Tablet 4 Active metFORMIN (GLUCOPHAGE XR) 500 mg Extended-Release tabletIndications:U ncontrolled type 2 diabetes mellitus with hyperglycemia (HC) Take 2 Tablets (1,000 mg) by mouth two times daily with meals. 120 Tablet 4 Active Lantus Solostar U-100 Insulin 100 unit/mL (3 mL) penIndications:Unco ntrolled type 2 diabetes mellitus with hyperglycemia (HC) Inject 88 units subcutaneous before bedtime. 90 mL 4 Active Diaper,Brief, Adult,DisposableInd ications:Urinary incontinence, unspecified type For home use. Size XL. 100 Each 4 Active warfarin (COUMADIN) 3 mg tabletIndications:R ight atrial thrombus,Patent foramen ovale,Anticoagulati on monitoring, INR range 2-3,Anticoagulant long-term use Take by mouth 3 mg (3 mg x 1) every Sun; 6 mg (3 mg x 2) all other day in the evening OR as directed 4 Active hydroCHLOROthiazide (HCTZ) 25 mg tabletIndications:H ypertension Take 2 Tablets (50 mg) by mouth once daily. 180 Tablet 3 3 02/21/20 24 Discontinu ed(*Medica tion adjustment ) Lantus Solostar U-100 Insulin 100 unit/mL (3 mL) penIndications:Unco ntrolled type 2 diabetes mellitus with hyperglycemia (HC) Inject 80 units subcutaneous before bedtime. 90 mL 4 02/27/20 24 Discontinu ed(*Medica tion adjustment ) torsemide (DEMADEX) 20 mg tablet Take 20 mg by mouth once daily. 4 03/05/20 24 Discontinu ed(*Patien t states no longer taking) warfarin (COUMADIN) 3 mg tabletIndications:R ight atrial thrombus,Patent foramen ovale,Anticoagulati on monitoring, INR range 2-3,Anticoagulant long-term use Take by mouth 02/12: Hold; Otherwise 3 mg every Sun, Paige; 6 mg all other days 4 03/06/20 Discontinu ed(Reorder (E-cancel not sent)) cephalexin (KEFLEX) 500 mg capsule Take 500 mg by mouth three times daily. 03/05/20 Discontinu ed(*Patien t states no longer taking) Active Problems Problem Noted Date Diagnosed Date [...] Encounters Date Type Department Care Team Description 03/06/[address] [address] Opal Richards, DO Medication Management (rosuvastatin (CRESTOR) 20 mg tablet) 03/06/[address] [place] [address] Opal Richards, DO Results 03/05/2024 10:50 AM CDT Office Visit [facility] [address] [place] [address] Opal Richards, DO Diabetes (Follow up ) 03/05/2024 Anticoagulation (warfarin) [facility] [address] [facility] [place] [address] 1, [facility] Anticoagulation 03/05/2024 Travel 02/26/2024 10:45 AM CDT Office Visit [facility] [address] [place] [address] Rony Larson MD Hospital F/U 02/26/2024 8:20 AM CDT Orders Only [facility] [address] [facility] [address] [place] [address] Only, [facility] Lab Lab 02/26/2024 Travel 02/25/2024 Telephone [facility] [address] [place] [address] Opal Richards, Anticoagulation (INR result) 02/21/2024 Telephone [facility] [address] [place] [address] Opal Richards, Results 02/21/2024 Telephone [facility] [address] [place] [address] Jonathan Salazar MD Abnormal Lab Results 02/20/2024 2:00 PM CDT Office Visit [facility] [address] [place] [address] Opal Richards, Follow Up (Has been to the ER several times this month. Is on antibiotics for both MRSA and E.Coli) 02/20/2024 Telephone [facility] [address] [place] [address] [facility] Cancer Referral (/Abnormal prostate biopsy [R89.7]/Lymphoma, unspecified body region, unspecified lymphoma type (HC) [C85.90]//) 02/20/2024 Travel 02/14/2024 Telephone [facility] [address] [facility] [address] [place] [address] Gio Castanon MD Results (UC+ e. coli) 02/13/2024 Telephone [facility] [address] [place] [address] Opal Richards, DO Results 02/12/2024 8:45 AM CDT Orders Only [facility] [address] [place] [address] Lab, [facility] 02/12/2024 Anticoagulation (warfarin) [facility] [address] [place] [address] 1, [facility] Anticoagulation 02/12/2024 Telephone [facility] [address] [place] [address] Opal Richards, Lab 02/12/2024 Travel 02/11/2024 Orders Only [facility] Scanner 1 scan: (1-Ord) INCOMING RECORDS-EKG, [facility], 02/11/2024 02/11/2024 Orders Only [facility] Scanner 1 scan: (1-Ord) INCOMING RECORDS-CT, [facility], 02/11/2024 02/11/2024 Orders Only [facility] Scanner 1 scan: (1-Ord) INCOMING RECORDS-LABS, [facility], 02/11/2024 02/01/2024 Refill [facility] [address] [place] [address] Radha Prieto MD Refill Request (Metformin) 01/31/2024 Telephone [facility] [address] [place] [address] Opal Richards, Results 01/30/2024 Telephone [facility] [address] [place] [address] Opal Richards, Anticoagulation (Provider review) 01/30/2024 Anticoagulation (warfarin) [facility] [address] [place] [address] 1, [facility]tico[facility] 01/29/2024 11:30 AM CDT Orders Only [facility] [address] [place] [address] Lab, [facility] 01/29/2024 Travel 01/26/2024 Telephone [facility] [address] [place] [address] Opal Richards DO Anticoagulation (Unable to contact) 01/25/2024 11:25 AM CDT Office Visit [facility] [address] [place] [address] Arben Sheets DO Hospital F/U (DOD 01/22/2024 - catheter is giving him pain ) 01/25/2024 Travel 01/24/2024 Anticoagulation (warfarin) [address] [address] 1, [facility] Anticoagulation (Chart update - Colonoscopy cancelled - Post hospital) 01/24/2024 Patient Outreach [facility] [address] [place] [address] Rabia Rodrigues, RN Primary RN Care Management; Hospital F/U (LACE 56) 01/23/2024 Orders Only [facility] [address] [place] [address] Rony Larson MD <No scans attached> 01/22/2024 Telephone [facility] [address] [place] [address] Demetrio Lopez MD Appointment 01/19/2024 11:10 AM CDT Anesthesia Event [facility] [address] [place] [address] Robi White MD Pas[place], Curtis Ward, METAL LOADER 01/19/2024 10:45 AM CDT - 01/19/2024 12:49 PM CDT Surgery [facility] [address] [place] [address] Glen Chavez MD CYSTOSCOPY, TRANSURETHRAL resection of prostate, UNROOFING OF PROSTATE ABSCESS, dilation of uretheral stricture 01/17/2024 5:08 AM CDT - 01/23/2024 1:39 PM CDT Hospital Encounter [facility] [address] [place] [address] [facility] Hospitalists Judith Delgado, MD Johnny [address] Ashley Diane, DO Bratko, Sunni Young MD Sleep apnea, unspecified type (Primary Dx); Prostate abscess; Pre-op examination; Right atrial thrombus; Patent foramen ovale; Anticoagulation monitoring, INR range 2-3; Anticoagulant long-term use Discharge Disposition: Home Self Care 01/16/[address] [address] Opal Richards, GI update 01/15/[address] [address] Opal Richards, Anticoagulation (BPA-Lovenox) 01/15/2024 Telephone [facility] [address] [place] [address] Opal Richards, Medication Management (enoxaparin (LOVENOX) 100 mg/mL injection) 01/15/[address] [address] Opal Richards, Medication Management (enoxaparin (LOVENOX) 100 mg/mL injection) 01/15/2024 Orders Only [address] [id number] Opal Richards, DO <No scans attached> 01/15/[address] [address] Opal Richards, Anticoagulation (BPA- LOVENOX) 01/15/[address] [address] Opal Richards, Results 01/14/2024 10:25 AM CDT Preop Visit [facility] [address] [facility] [place] [address] Opal Richards, Pre-Op Exam (Pre op, [facility], dr. lopez 01/27) 01/14/2024 Anticoagulation (warfarin) [facility] [address] [facility] [place] [address] 1, [facility] Antico[facility] 01/14/2024 Telephone [facility] [address] [place] [address] Opal Richards, DO Follow Up 01/14/2024 Telephone [facility] [address] [facility] [place] [address] Opal Richards, DO Results 01/14/2024 Travel 01/04/2024 Orders Only [facility] [address] [facility] [place] [address] Opal Richards, DO <No scans attached> 01/03/2024 11:00 AM CDT Orders Only [facility] [address] [place] [address] Lab, [facility] 01/03/2024 Anticoagulation (warfarin) [facility] [address] [place] [address] 1, [facility] Anticoagulation 01/03/2024 Travel 12/20/2023 2:15 PM CDT Orders Only [address] [address] Lab, [facility] 12/20/2023 Anticoagulation (warfarin) [facility] [address] [place] [address] 1, [facility] Anticoagulation 12/20/2023 Travel from Last 3 Months Immunizations Name Administration Dates Next Due AMB Influenza, IIV4 PF (=>6 mos Flulaval,Fluzone Fluarix)(Flu Clinic Only) 06/15/2020 COVID-19 vaccine (Moderna 100mcg/0.5mL) PF, MDV 12/27/2021,11/03/2020,10/06/2020 COVID-19 vaccine ([place] [employer] 30mcg/0.3mL) 12YO+ BIVALENT PF, MDV 07/03/2022 [...] per week Alcohol Use Standard Drinks/Week Comments Not Currently 0 (1 standard drink = 0.6 oz [...] Sign Reading Time Taken Comments Blood Pressure 136/72 03/05/2024 11:02 AM CDT Pulse 68 03/05/2024 11:02 AM CDT Temperature 36.4 ??C (97.5 ??F) 03/05/2024 11:02 AM C DT Respiratory Rate 16 01/23/2024 8:00 AM CDT Oxygen Saturation 96% 03/05/2024 11:02 AM CDT Inhaled Oxygen Concentration - - Weight 121.6 kg (268 lb) 03/05/2024 11:02 AM CDT Height 170.2 cm (5' 7) 01/18/2024 9:17 AM CDT Body Mass Index 41.97 01/18/2024 9:17 AM CDT Plan of Treatment Upcoming Encounters Date Type Department Care Team (Late st Contact Info) Description 04/04/2024 9:35 AM CDT Office Visit [facility] [address] [place] [address] Opal Richards DO [address] [place] [address] Health Maintenance Due Date Last Done Comments [...] Procedure Name Priority Date/Time Associated Diagnosis Comments PROTIME-INR STAT 03/05/2024 11:55 AM CDT Right atrial thrombus Patent foramen ovale Anticoagulation monitoring, INR range 2-3 CREATININE Routine 03/05/2024 11:55 AM CDT Elevated serum creatinine SODIUM Routine 03/05/2024 11:55 AM CDT Low serum sodium POTASSIUM Routine 03/05/2024 11:55 AM CDT Low serum potassium POTASSIUM Routine 02/26/2024 11:52 AM CDT Prostatitis, unspecified prostatitis type CREATININE Routine 02/26/2024 11:52 AM CDT Prostatitis, unspecified prostatitis type PROTIME-INR Routine 02/26/2024 11:52 AM CDT Prostatitis, unspecified prostatitis type Anticoagulation goal of INR 2 to 3 RED CELL MORPHOLOGY Routine 02/20/2024 2 :51 PM CDT Abnormal prostate biopsy PLATELET ESTIMATE Routine 02/20/2024 2:5 1 PM CDT Abnormal prostate biopsy MANUAL DIFFERENTIAL Routine 02/20/2024 2 :51 PM CDT Abnormal prostate biopsy CBC WITH AUTO DIFFERENTIAL Routine 02/20/2024 2:51 PM CDT Abnormal prostate biopsy CBC WITH AUTO DIFFERENTIAL Routine 02/20/2024 2:51 PM CDT Abnormal prostate biopsy BASIC METABOLIC PANEL Routine 02/20/2024 2:51 PM CDT Low serum sodium BASIC METABOLIC PANEL Add On 02/12/2024 8:50 AM CDT Hypertension PLATELET COUNT STAT 02/12/2024 8:50 AM CDT Right atrial thrombus Patent foramen ovale Anticoagulation monitoring, INR range 2-3 POTASSIUM Routine 02/12/2024 8:50 AM CDT Serum potassium elevated PROTIME-INR STAT 02/12/2024 8:50 AM CDT Right [...] TISSUE EXAM Today 01/19/2024 12:13 PM CDT GENE REARRANGEMENT Timed 01/19/2024 12:13 PM CDT GLUCOSE METER Timed [...] Recently Relevant to Health Maintenance Results * SODIUM (03/05/2024 11:55 AM CDT) Only the most recent of2 resultswithin the time period is included. SODIUM 136 136 - 145 mmol/L 03/06/2024 12:51 AM CDT [facility] Blood BLOOD SPECIMEN / Unknown Venipuncture / Unknown 03/05/2024 11:55 AM CDT 03/05/2024 11:58 AM CDT Opal Lawsonlisseth MARROQUIN CHEMISTRY Performing Organization Address [facility] Co de Phone Number [facility] [address] [place] [address], * POTASSIUM (03/05/2024 11:55 AM CDT) Only the most recent of7 resultswithin the time period is included. POTASSIUM 4.8 3.5 - 5.1 mmol/L 03/06/2024 12:51 AM CDT [facility] Blood BLOOD SPECIMEN / Unknown Venipuncture / Unknown 03/05/2024 11:55 AM CDT 03/05/2024 11:58 AM CDT Opalevin Lawsonlisseth MARROQUIN CHEMISTRY Performing Organization Address [facility] de Phone Number [facility] [address] [place] [address], * (ABNORMAL) CREATININE (03/05/2024 11:55 AM CDT) Only the most recent of8 resultswithin the time period is included. eGFR 71(L) >90 mL/min/1.7 3m2 03/06/2024 12:51 AM CDT [facility] Comment:As of 2021, eG FR is calculated by the CKD-EPI creatinine equation without race adjustment. ??eGFR can be influenced by muscle mass, exercise, and diet. ??The reported eGFR is an estimation only and is only applicable if the renal function is stable. CREATININE 1.14 0.70 - 1.20 mg/dL 03/06/2024 12:51 AM CDT [facility] Blood BLOOD SPECIMEN / Unknown Venipuncture / Unknown 03/05/2024 11:55 AM CDT 03/05/2024 11:58 AM CDT Opal Richards DO CHEMISTRY Performing Organization Address [facility] Co de Phone Number [facility] [address] [address], * (ABNORMAL) PROTIME-INR (03/05/2024 11:55 AM CDT) Only the most recent of14 resultswithin the time period is included. INR 1.7(H) <1.3 03/05/2024 4:05 PM CDT [facility] PROTIME 19.2(H) 10.3 - 12.3 sec 03/05/2024 4:05 PM CDT [facility] Blood BLOOD SPECIMEN / Unknown Venipuncture / Unknown 03/05/2024 11:55 AM CDT 03/05/2024 11:58 AM CDT Narrative [facility] - 03/05/2024 4:05 PM CDT ?Therapeutic Range 2.0-3.0 for most [...] Opal Richards DO HEMATOLOGY Performing Organization Address [facility]/ZIP Co de Phone Number [facility] [address] [address], [place] * (ABNORMAL) CBC WITH AUTO DIFFERENTIAL (02/20/2024 2:51 PM CDT) WHITE BLOOD COUNT 10.7 4.5 - 11.0 thou/cu mm 02/20/2024 3:39 PM CDT [facility] RED BLOOD COUNT 4.04(L) 4.30 - 5.90 mil/cu mm 02/20/2024 3:39 PM CDT [facility] HEMOGLOBIN 11.6(L) 13.5 - 17.5 g/dL 02/20/2024 3:39 PM CDT [facility] HEMATOCRIT 33.1(L) 37.0 - 53.0 % 02/20/2024 3:39 PM CDT [facility] MCV 82 80 - 100 fL 02/20/2024 3:39 PM CDT [facility] MCH 28.7 26.0 - 34.0 pg 02/20/2024 3:39 PM CDT [facility] MCHC 35.0 32.0 - 36.0 g/dL 02/20/2024 3:39 PM CDT [facility] RDW 14.5 11.5 - 15.5 % 02/20/2024 3:39 PM CDT [facility] PLATELET COUNT 238 140 - 440 thou/cu mm 02/20/2024 3:39 PM CDT [facility] MPV 10.5 6.5 - 11.0 fL 02/20/2024 3:39 PM CDT [facility] Blood BLOOD SPECIMEN / Unknown Venipuncture / Unknown 02/20/2024 2:51 PM CDT 02/20/2024 2:51 PM CDT Opal Richards DO HEMATOLOGY [facility] [address] [place] [address], * RED CELL MORPHOLOGY (02/20/2024 2:51 PM CDT) RBC COMMENT RBC morphology appears normal RBC morphology appears normal, RBC morphology within normal limits for newborns. 02/20/2024 3:38 PM CDT [facility] Blood BLOOD SPECIMEN / Unknown Venipuncture / Unknown 02/20/2024 2:51 PM CDT 02/20/2024 2:51 PM CDT Opal Richards DO HEMATOLOGY [facility] [address] [place] [address], * PLATELET ESTIMATE (02/20/2024 2:51 PM CDT) PLATELET ESTIMATE Adequate Adequate, No estimate 02/20/2024 3:38 PM CDT [facility] Blood BLOOD SPECIMEN / Unknown Venipuncture / Unknown 02/20/2024 2:51 PM CDT 02/20/2024 2:51 PM CDT Opal Richards DO HEMATOLOGY Performing Organization Address City/[facility]/ZIP Co de Phone Number [facility] [address] [place] [address], * (ABNORMAL) MANUAL DIFFERENTIAL (02/20/2024 2:51 PM CDT) % NEUTROPHILS 70.0 % 02/20/2024 3:38 PM CDT [facility] % LYMPHOCYTES 18.0 % 02/20/2024 3:38 PM CDT [facility] % MONOCYTES 9.0 % 02/20/2024 3:38 PM CDT [facility] % EOSINOPHILS 3.0 % 02/20/2024 3:38 PM CDT [facility] % BASOPHILS 0.0 % 02/20/2024 3:38 PM CDT [facility] NEUTROPHILS ABSOLUTE 7.5(H) 1.7 - 7.0 thou/cu mm 02/20/2024 3:38 PM CDT [facility] LYMPHOCYTES ABSOLUTE 1.9 0.9 - 2.9 thou/cu mm 02/20/2024 3:38 PM CDT [facility] MONOCYTES ABSOLUTE 1.0(H) <0.9 thou/cu mm 02/20/2024 3:38 PM CDT [facility] EOSINOPHILS ABSOLUTE 0.3 <0.5 thou/cu mm 02/20/2024 3:38 PM CDT [facility] BASOPHILS ABSOLUTE 0.0 <0.3 thou/cu mm 02/20/2024 3:38 PM CDT [facility] Blood BLOOD SPECIMEN / Unknown Venipuncture / Unknown 02/20/2024 2:51 PM CDT 02/20/2024 2:51 PM CDT Opal Richards DO HEMATOLOGY [facility] [address] [place] [address], * (ABNORMAL) BASIC METABOLIC PANEL (02/20/2024 2:51 PM CDT) Only the most recent of6 resultswithin the time period is included. SODIUM 131(L) 136 - 145 mmol/L 02/20/2024 11:58 PM CDT [facility] POTASSIUM 3.5 3.5 - 5.1 mmol/L 02/20/2024 11:58 PM CDT [facility] CHLORIDE 88(L) 98 - 107 mmol/L 02/20/2024 11:58 PM CDT [facility] CO2,TOTAL 25 22 - 29 mmol/L 02/20/2024 11:58 PM CDT [facility] ANION GAP 18 5 - 18 02/20/2024 11:58 PM T [facility] GLUCOSE 511(HH) 70 - 99 mg/dL 02/20/2024 11:58 PM CDT [facility] CALCIUM 9.6 8.8 - 10.2 mg/dL 02/20/2024 11:58 PM CDT [facility] BUN 46(H) 8 - 23 mg/dL 02/20/2024 11:58 PM T [facility] CREATININE 2.03(H) 0.70 - 1.20 mg/dL 02/20/2024 11:58 PM T [facility] BUN/CREAT RATIO 23(H) 10 - 20 11:58 PM CDT [facility] eGFR 35(L) >90 mL/min/1.7 3m2 02/20/2024 11:58 PM CDT [facility] Comment:As of 2021, eG FR is calculated by the CKD-EPI creatinine equation without race adjustment. ??eGFR can be influenced by muscle mass, exercise, and diet. ??The reported eGFR is an estimation only and is only applicable if the renal function is stable. Blood BLOOD SPECIMEN / Unknown Venipuncture / Unknown 02/20/2024 2:51 PM CDT 02/20/2024 2:51 PM CDT Opal Richards DO CHEMISTRY Performing Organization Address City/[facility]/ZIP Co de Phone Number [facility] [address] [address], [place] * PLATELET COUNT (02/12/2024 8:50 AM CDT) Only the most recent of6 resultswithin the time period is included. PLATELET COUNT 235 140 - 440 thou/cu mm 02/12/2024 8:59 AM CDT [facility] MPV 10.8 6.5 - 11.0 fL 02/12/2024 8:59 AM CDT [facility] Blood BLOOD SPECIMEN / Unknown Venipuncture / Unknown 02/12/2024 8:50 AM CDT 02/12/2024 8:51 AM CDT Narrative [facility] - 02/12/2024 8:59 AM CDT MD to monitor if out of range, to monitor for Heparin-Induced Thrombocytopenia while on lovenox. Opal Richards DO HEMATOLOGY Performing Organization Address City/[facility]/ZIP Co de Phone Number [facility] [address] [place] [address], [place] [phone] * SCAN CORRESP-LABORATORY RESULTS (02/11/2024 12:00 AM [...] Laterality Modality Other Scanner OTHER * (ABNORMAL) C-REACTIVE PROTEIN (01/29/2024 11:47 AM CDT) Only the most recent of2 resultswithin the time period is included. C-REACTIVE PROTEIN 0.5(H) <0.5 mg/dL 01/30/2024 2:11 AM CDT [facility] Blood BLOOD SPECIMEN / Unknown Butterfly / Unknown 01/29/2024 11:47 AM CDT 01/29/2024 11:48 AM CDT Opal Richards DO CHEMISTRY Performing Organization Address City/[facility]/ZIP Co de Phone Number [facility] [address] [place] [address], * (ABNORMAL) GLUCOSE METER (01/23/2024 7:01 AM CDT) Only the most recent of28 resultswithin the time period is included. GLUCOSE METER 280(H) 65 - 100 mg/dL 01/23/2024 7:02 AM CDT [facility] Blood BLOOD SPECIMEN / Unknown 01/23/2024 7:01 AM CDT 01/23/2024 7:02 AM CDT Sunni Christensen MD CHEMISTRY [facility] [address] [place] [address], [place] * (ABNORMAL) HEMOGLOBIN (01/23/2024 4:31 AM CDT) Only the most recent of7 resultswithin the time period is included. HEMOGLOBIN 10.3(L) 13.5 - 17.5 g/dL 01/23/2024 5:10 AM CDT [facility] MCV 84 80 - 100 fL 01/23/2024 5:10 AM CDT [facility] Blood BLOOD SPECIMEN / Unknown Venipuncture / Unknown 01/23/2024 4:31 AM CDT 01/23/2024 5:[address] [facility] - 01/23/2024 5:10 AM CDT Every morning while on IV heparin. Every morning while on IV heparin. Necessary every morning while on IV heparin. Michelle Turner DO HEMATOLOGY Performing Organization Address [facility] Co de Phone Number [facility] [address] [place] [address], * (ABNORMAL) HEMATOCRIT (01/23/2024 4:31 AM CDT) Only the most recent of4 resultswithin the time period is included. HEMATOCRIT 31.9(L) 37.0 - 53.0 % 01/23/2024 5:10 AM CDT [facility] Blood BLOOD SPECIMEN / Unknown Venipuncture / Unknown 01/23/2024 4:31 AM CDT 01/23/2024 5:05 AM CDT [facility] - 01/23/2024 5:10 AM CDT Every morning while on IV heparin. Every morning while on IV heparin. Necessary every morning while on IV heparin. Michelle Turner DO HEMATOLOGY Performing Organization Address City/[facility]/ZIP Co de Phone Number [facility] [address] [place] [address], * VANCOMYCIN TROUGH (01/21/2024 4:09 PM CDT) Only the most recent of2 resultswithin the time period is included. VANCOMYCIN,TRO UGH 12.1 7.0 - 20.0 ug/mL 01/21/2024 4:54 PM CDT [facility] DATE OF LAST DOSE,TROUGH 01/21/2024 01/21/2024 4:54 PM CDT [facility] TIME OF LAST DOSE,TROUGH 4:08 AM 01/21/2024 4:54 PM CDT [facility] Blood BLOOD SPECIMEN / Unknown Venipuncture / Unknown 01/21/2024 4:09 PM CDT 01/21/2024 4:16 PM CDT Sunni Christensen MD CHEMISTRY [facility] [address] [place] [address], * (ABNORMAL) Electrolyte panel AM (01/21/2024 6:21 AM CDT) SODIUM 136 136 - 145 mmol/L 01/21/2024 7:06 AM CDT [facility] POTASSIUM 3.8 3.5 - 5.1 mmol/L 01/21/2024 7:06 AM CDT [facility] CHLORIDE 106 98 - 107 mmol/L 01/21/2024 7:06 AM CDT [facility] CO2,TOTAL 20(L) 22 - 29 mmol/L 01/21/2024 7:06 AM CDT [facility] ANION GAP 10 5 - 18 01/21/2024 7:06 AM CDT [facility] Blood BLOOD SPECIMEN / Unknown Venipuncture / Unknown 01/21/2024 6:21 AM CDT 01/21/2024 6:38 AM CDT Michelle Turner DO CHEMISTRY [facility] [address] [address], * SCAN-SLEEP STUDY (01/21/2024 12:00 AM CDT) Narrative 01/21/2024 12:00 AM CDT Ordered by an unspecified provider. Other Clinical Staff OTHER * APTT (01/20/2024 9:50 PM CDT) Only the most recent of2 resultswithin the time period is included. Pathologist [facility] APTT 31 28 - 36 sec 01/20/2024 10:14 PM CDT [facility] Blood BLOOD SPECIMEN / Unknown Venipuncture / Unknown 01/20/2024 9:50 PM CDT 01/20/2024 10:02 PM CDT Narrative [facility] - 01/20/2024 10:14 PM CDT Therapeutic Range: 57-87 seconds Sunni Christensen MD HEMATOLOGY [facility] [address] * BUN (01/20/2024 11:39 AM CDT) [facility] BUN 16 8 - 23 mg/dL 01/20/2024 1:13 PM CDT [facility] Blood BLOOD SPECIMEN / Unknown Venipuncture / Unknown 01/20/2024 11:39 AM CDT 01/20/2024 12:24 PM CDT Michelle Turner DO CHEMISTRY Performing Organization Address City/[facility] Co de Phone Number [facility] [address] * PATH TISSUE EXAM (01/19/2024 12:13 PM CDT) [facility] Case Report Pathology Report ?Case: [id number] ? Authorizing Provider: ??Glen Chavez ? Collected: ? 01/19/2024 1213 ? MD Alex ? Ordering Location: ? [facility] ?Received: ?01/21/2024 0754 ? Hospital ? Pathologist: ? Silvio Sandoval MD ? Specimen: ?Prostate, Prostate chips ? 02/15/2024 2:39 PM CDT [facility] Amendment 02/06/2024 - Report updated to incorporate gene rearrangement testing. 02/15/2024 2:39 PM CDT [facility] Final Diagnosis PROSTATE, TRANSURETHRAL RESECTION: 1. 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 See comment 02/15/2024 2:39 PM CDT [facility] Amendment electronically signed by Silvio Sandoval MD on 02/15/2024 at 2:39 PM Comment Focal marked chronic active inflammation is [...] which are atypical but not conclusive for lymphoma based on the histological criteria alone. One particular suspicious lymphoid focus in paraffin block A5 was excised from the paraffin block and submitted for molecular analysis for B-cell gene rearrangement analysis by PCR, which is POSITIVE (see detailed report, below). ??Based on these results, an amended report is issued. ??As originally discussed with Dr. Chavez, careful clinical correlation is advised, in particular as to whether the patient has any suspicious regional lymphadenopathy, which, if present, should prompt additional biopsy investigation. Dr. Rachael Barajas discussed preliminary result with Dr. Glen Chavez on 01/24/24. Dr. Sandoval discussed the final results with Dr. Glen Chavez on 01/30/24. The the molecular studies and amended report are discussed with Dr. Mccoy, 02/15/2024 ([facility]) Case seen in consultation Suleiman Lazar, and Karl. 02/15/2024 2:39 PM CDT [facility] Clinical Information Prostate abscess 02/15/2024 2:39 PM CDT [facility] Gross Description A) Received in formalin, labeled with the patient's name and prostate chips, is a 6 g, 5.5 x 4 x 1.5 cm aggregate of alvarez-pink rubbery cauterized tissues. ?? Specimen is entirely submitted in 6 cassettes. Tissue is placed in formalin at 08: 00 on 01/21/2024. MIGUELITO 01/21/2024 02/15/2024 2:39 PM CDT [facility] Microscopic Description The final diagnosis is [...] cells ??PAX5: ?? Minimal staining ??ALK1: Negative An additional panel of immunostains on Block A2 was required in this case to arrive at a final conclusion: ??TP53: ?? No aberrant overexpression seen ??CD138: Highlights abundant plasma cells ??Ki67: Predominantly highlights areas of active inflammation ??EBV in situ: Negative ??[place]: Obscured due to high background ??Lambda: Unobscured due to high background Additional IHC stains on block A5 required for this complex case: CD3: Highlights abundant T lymphocytes CD20: Highlights dense foci of B cells, with one in particular which will be dissected from the paraffin block and submitted for B-cell gene rearrangement analysis CD138: Highlights foci of dense plasmacytic inflammation Cytokeratin cocktail: Highlights normal epithelial structures [place]: Stains majority of plasma cells (polytypic pattern) Lambda: Stains a minority of plasma cells (polytypic pattern) 02/15/2024 2:39 PM [facility] Molecular Diagnostics Summary B Cell Gene Rearrangement Analysis B cell Mu Heavy Chain PCR: Detected ?? Interpretation: ??A clonal B cell population is detected. Comment: ??Clonality does not necessarily define a malignant process; clinical and pathologic correlations are recommended. This Molecular Diagnostic report was reviewed by Daisha Eubanks, Ph.D. and Mihir Bearden M.D. METHODOLOGY: B Cell Gene Rearrangement: ??Genomic DNA is amplified by PCR using the Biomed II primer sets that bracket frameworks 1-3 of the B cell Ig heavy chain gene. ??An additional primer set targeting non-lymphoid cellular genes serves as a DNA quality monitor. ??PCR products are analyzed by capillary electrophoresis. FDA required disclaimer: ??This test was developed and its performance characteristics determined by the [facility]. It has not been cleared or approved by the U.S. Food and Drug Administration. The FDA has determined, however, that in most cases, such approval is not necessary. This test is used for clinical purposes. It should not be regarded as investigational or for research. 02/15/2024 2:39 PM CDT [facility] Additional Information Interpreted at [facility] - [address], [place] [address] 02/15/2024 2:39 PM CDT [facility] Tissue SPECIMEN FROM PROSTATE / Unknown 01/19/2024 12:13 PM CDT 01/21/2024 7:54 AM CDT Glen Chavez MD PATHOLOGY/ CYTOLOGY Performing Organization Address [facility] Co de Phone Number [facility] [address] [place] [address], [place] * GENE REARRANGEMENT (01/19/2024 12:13 PM CDT) SOURCE GENE REARRANGEMENT Prostate 02/15/2024 3:34 PM CDT [facility] B Cell Mu Heavy Chain PCR Completed 02/15/2024 3:34 PM CDT [facility] Tissue SPECIMEN FROM PROSTATE / Unknown 01/19/2024 12:13 PM CDT 01/31/2024 8:49 AM CDT Narrative [facility] - 02/15/2024 3:34 PM CDT See Pathology Report ? Glen Chavez MD SEND OUTS Performing Organization Address [facility] Co de Phone Number [facility] [address] [place] [address], [place] * HCHG TUBE PR1, HCHG INSTRUMENT DISP PR10, HCHG STYLET PR1, HCHG MOUTHPIECE PR1 (01/19/2024 11:32 AMCDT) Narrative Arvin Castro Ortez, METAL LOADER - 01/19/2024 11:32 AM CDT [facility] ? 01/19/2024 11:33 AM Procedure: ETT Patient [...] 11.0 thou/cu mm 01/18/2024 6:47 AM CDT [facility] RED BLOOD COUNT 3.91(L) 4.30 - 5.90 mil/cu mm 01/18/2024 6:47 AM CDT [facility] HEMOGLOBIN 11.0(L) 13.5 - 17.5 g/dL 01/18/2024 6:47 AM T [facility] HEMATOCRIT 33.5(L) 37.0 - 53.0 % 01/18/2024 6:47 AM CDT [facility] MCV 86 80 - 100 fL 01/18/2024 6:47 AM CDT [facility] MCH 28.1 26.0 - 34.0 pg 01/18/2024 6:47 AM CDT [facility] MCHC 32.8 32.0 - 36.0 g/dL 01/18/2024 6:47 AM [facility] RDW 13.7 11.5 - 15.5 % 01/18/2024 6:47 AM CDT [facility] PLATELET COUNT 228 140 - 440 thou/cu mm 01/18/2024 6:47 AM CDT [facility] MPV 10.0 6.5 - 11.0 fL 01/18/2024 6:47 AM CDT [facility] NRBC 0.0 % 01/18/2024 6:47 AM CDT [facility] ABS NRBC 0.0 thou /cu mm 01/18/2024 6:47 AM CDT [facility] Blood BLOOD SPECIMEN / Unknown Venipuncture / Unknown 01/18/2024 6:16 AM CDT 01/18/2024 6:32 AM CDT Michelle Turner DO HEMATOLOGY Performing Organization Address [facility] Co de Phone Number [facility] [address] [place] [address], [place] * (ABNORMAL) MRSA/SA PCR (01/17/2024 7:28 PM CDT) [facility] MRSA DNA PCR Positive( A) Negative 01/17/2024 10:52 PM CDT [facility] STAPHYLOCOCCUS AUREUS PCR Positive( A) Negative 01/17/2024 10:52 PM CDT [facility] Other SPECIMEN FROM INTERNAL NOSE / Unknown Non-Blood / Unknown 01/17/2024 7:28 PM CDT 01/17/2024 7:41 PM CDT Narrative [facility] - 01/17/2024 10:52 PM CDT A positive test result does not necessarily indicate the presence of viable organisms. It is, however, presumptive for the presence of Methicillin Resistant Staphylococcus aureus (MRSA) or Staphylococcus aureus. Michelle Turner DO MICROBIOLOGY Performing Organization Address [facility] Co de Phone Number [facility] [address] [place] [address], [place] * (ABNORMAL) WHITE BLOOD COUNT (01/17/2024 1:18 PM CDT) WHITE BLOOD COUNT 17.8(H) 4.5 - 11.0 thou/cu mm 01/17/2024 1:50 PM CDT [facility] NRBC 0.0 % 01/17/2024 1:50 PM CDT [facility] ABS NRBC 0.0 thou /cu mm 01/17/2024 1:50 PM CDT [facility] Blood BLOOD SPECIMEN / Unknown Butterfly / Unknown 01/17/2024 1:18 PM CDT 01/17/2024 1:30 PM CDT Michelle Turner DO HEMATOLOGY [facility] [address] [place] [address], * SCAN-CARDIAC STRIP (01/17/2024 12:00 AM CDT) Narrative 01/17/2024 12:00 AM CDT Ordered by an unspecified provider. Other Clinical Staff OTHER * (ABNORMAL) LIVER PANEL (HEPATIC FUNCTION PANEL) (01/14/2024 11:52 AM CDT) Pathologist [facility] ALBUMIN 4.4 4.0 - 4.9 g/dL 01/14/2024 10:44 PM CDT [facility] PROTEIN,TOTAL 8.7(H) 6.0 - 8.0 g/dL 01/14/2024 10:44 PM CDT [facility] BILIRUBIN,TOTAL 0.4 0.0 - 1.2 mg/dL 01/14/2024 10:44 PM CDT [facility] BILIRUBIN,DIRECT <0.2 0.0 - 0.3 mg/dL 01/14/2024 10:44 PM CDT [facility] BILIRUBIN,INDIRE CT 01/14/2024 10:44 PM CDT [facility] Comment:Unable to calculate, Direct Bili <0.2 ALK PHOSPHATASE 76 40 - 129 IU/L 01/14/2024 10:44 PM CDT [facility] ALT (SGPT) 31 10 - 50 IU/L 01/14/2024 10:44 PM CDT [facility] AST (SGOT) 35 10 - 50 IU/L 01/14/2024 10:44 PM CDT [facility] Blood BLOOD SPECIMEN / Unknown Butterfly / Unknown 01/14/2024 11:52 AM CDT 01/14/2024 11:53 AM CDT Opal Richards DO CHEMISTRY Performing Organization Address City/[facility]/ZIP Co de Phone Number [facility] [address] [place] [address], [place] * MAGNESIUM (01/14/2024 10:40 AM CDT) MAGNESIUM 1.6 1.6 - 2.4 mg/dL 01/14/2024 6:22 PM CDT [facility] Blood BLOOD SPECIMEN / Unknown Venipuncture / Unknown 01/14/2024 10:40 AM CDT 01/14/2024 10:40 AM CDT Opal Richards DO CHEMISTRY Performing Organization Address City/[facility]/ZIP Co de Phone Number [facility] [address] [place] [address], [place] * (ABNORMAL) IRON PLUS IRON BINDING CAP (01/03/2024 11:04 AM CDT) IRON 48(L) 61 - 157 ug/dL 01/03/2024 10:03 PM CDT [facility] UIBC (UNSATURATED) 302 112 - 347 ug/dL 01/03/2024 10:03 PM CDT [facility] IRON BINDING CAPACITY 350 250 - 400 ug/dL 01/03/2024 10:03 PM CDT [facility] IRON,% SATURATION 14 14 - 50 % 01/03/2024 10:03 PM CDT [facility] Blood BLOOD SPECIMEN / Unknown Butterfly / Unknown 01/03/2024 11:04 AM CDT 01/03/2024 11:04 AM CDT Opal Richards DO CHEMISTRY Performing Organization Address City/[facility]/ZIP Co de Phone Number [facility] [address] [place] [phone], [place] * FERRITIN (01/03/2024 11:04 AM CDT) FERRITIN 311.0 30.0 - 400.0 ng/mL 01/03/2024 10:03 PM CDT [facility] Blood BLOOD SPECIMEN / Unknown Butterfly / Unknown 01/03/2024 11:04 AM CDT 01/03/2024 11:04 AM CDT Opal Richards DO CHEMISTRY Performing Organization Address [facility]/ZIP Co de Phone Number [facility] [address] [place] [phone], [place] * (ABNORMAL) INR,POCT (12/20/2023 2:25 PM CDT) INR 2.2(H) <1.3 12/20/2023 2:28 PM CDT [facility] Blood BLOOD SPECIMEN / Unknown 12/20/2023 2:25 PM CDT 12/20/2023 2:28 PM CDT Narrative [facility] - 12/20/2023 2:28 PM CDT ?Therapeutic Range 2.0-3.0 for most anticoagulated patients 2.5-3.5 or 4.0 for high risk patients Opal Richards DO LABORATORY [facility] [address] [place] [address], [place] [phone] * [place] ABD AORTA SCREENING [[id number]] (07/02/2023 9:12 AM CDT) Anatomical Region Laterality [...] - 199 mg/dL 06/20/2023 7:00 AM CDT [facility] Comment: Cholesterol, Total Reference Ranges Desirable <200 mg/dL Borderline 200-239 mg/dL High >=240 mg/dL TRIGLYCERIDES 530(H) <150 mg/dL 06/20/2023 7:00 AM CDT [facility] HDL CHOLESTEROL 30(L) >40 mg/dL 3 7:00 AM CDT [facility] NON-HDL CHOLESTEROL 129 <145 mg/dl 06/20/2023 7:00 AM T [facility] CHOL/HDL RATIO 5.30(H) <4.50 06/20/2023 7:00 AM CDT [facility] LDL CHOLESTEROL 3 7:00 AM T [facility] Comment:Invalid LDL when Tri g >400. VLDL CHOLESTEROL COMMENT 06/20/2023 7:00 AM T [facility] Comment:Unable to calculate VLDL. PROVIDER ORDERED STATUS RANDOM 06/20/2023 7:00 AM T [facility] Blood BLOOD SPECIMEN / Unknown Venipuncture / Unknown 06/19/2023 11:13 AM CDT 06/19/2023 11:15 AM CDT Opal Richards DO CHEMISTRY [facility] [address] [place] [address], * ANTI HCV (02/27/2020 2:02 PM CDT) HEPATITIS C ANTIBODY Non-React gennaro Non-React gennaro 02/27/2020 8:36 PM CDT [facility] Comment:Antibodies to HCV no t detected; does not exclude the possibility of exposure to HCV. Blood BLOOD SPECIMEN / Unknown Butterfly / Unknown 02/27/2020 2:02 PM CDT 02/27/2020 2:03 PM CDT Radha Prieto MD SEND OUTS [facility] [address] [place] [address], [place] * SCAN-COLONOSCOPY (12/31/2017 12:00 AM CDT) [...] 12 months since positive culture): resides in acute/long term care social worker care, receiving hemodialysis, has chronic open wounds/skin [...] Status Discussion: Reviewed Preferences Care Teams Paper Hanger Relationship Specialty Start Date End Date [place] [address] [address] PCP - General Family Practice 06/21/23
[2024-03-17 12:24] LABS: Basophils Absolute Auto 0.03 K/uL (0.00-0.30); Basophils Percent Auto 0.5 % (0.0-3.0); Eosinophils Absolute Auto 0.28 K/uL (0.00-0.50); Eosinophils Percent Auto 4.8 % (0.0-7.0); Hematocrit 35.9 % (37.0-53.0); Immature Granulocytes Abs Auto 0.04 K/uL (0.00-0.30); Immature Granulocytes Pct Auto 0.7 %; Lymphocytes Percent Auto 18.4 % (20-44); Mean Corpuscular HGB Conc 33 gm/dL (32-36); Mean Corpuscular Hemoglobin 29 pg (26-34); Mean Corpuscular Volume 87 fL (80-100); Monocytes Percent Auto 13.2 % (0.0-11.0); Neutrophils Absolute Auto 3.64 K/uL (1.7-7.0); Neutrophils Percent Auto 62.4 % (42.0-72.0); Platelet Count* 208 K/uL (140-440); RDW Coefficient of Variation % 16.8 % (11.5-15.5); Red Blood Count 4.14 m/uL (4.30-5.90); White Blood Count* 5.83 K/uL (4.50-11.00)
[2024-03-17 12:26] LABS: Slide Review Reflex No
[2024-03-17 12:31] LABS: Troponin, Point-of-Care* 0.01 ng/ml (0.01-0.04)
[2024-03-17 12:38] LABS: Albumin* 4.3 g/dL (3.3-5.0); Chloride* 104 mmol/L (96-114); Sodium* 138 mmol/L (135-149)
[2024-03-17 12:39] LABS: INR 1.05 (0.91-1.10); Potassium* 4.1 mmol/L (3.6-5.1); Prothrombin Time 14.3 Seconds
[2024-03-17 12:40] LABS: Creatinine* 0.9 mg/dL (0.5-1.5); Est. Creatinine Clearance* 67.94; Estimated Glomerular Filt Rate 94 ml/min
[2024-03-17 12:41] LABS: Alanine Aminotransferase* 39 U/L (4-50); Alkaline Phosphatase* 68 U/L (40-150); Anion Gap 10 mEq/L (7-15); Aspartate Amino Transferase* 42 U/L (12-35); Bilirubin Direct* 0.2 mg/dL (0.0-0.5); Bilirubin Total* 0.4 mg/dL (0.1-1.5); Blood Urea Nitrogen* 16 mg/dL (7-30); Calcium* 9.5 mg/dL (8.4-10.6); Carbon Dioxide* 24 mmol/L (20-32); Glucose* 281 mg/dL (60-115); Total Protein* 7.2 g/dL (6.0-8.3)
[2024-03-17 12:42] LABS: Magnesium* 1.7 mg/dL (1.5-2.6)
[2024-03-17 12:51] LABS: NT Pro B Type NatriureticPept* 172 pg/mL
[2024-03-17 13:00] LABS: PCR FLU A Negative PCR FLU A (Negative); PCR FLU B Negative PCR FLU B (Negative); PCR RSV Negative PCR RSV (Negative); SARS PCR* Negative SARS-CoV-2 (Negative)
[2024-03-17 13:18] LABS: Appearance Urine Clear (Clear); Bilirubin Urine Negative (Negative); Blood Urine 2+ (Negative); Color Urine Other (Yellow); Glucose Urine 2+ (Negative); Ketones Urine 1+ (Negative); Leukocyte Esterase Urine 1+ (Negative); Nitrite Urine Negative (Negative); Protein Urine 2+ (Negative); Specific Gravity Urine 1.025 (1.000-1.030)
[2024-03-17 13:46] LABS: Bacteria Urine Moderate; RBC Urine 25-50 (0-2); Squamous Epithelial Cell Urine Few (None-Few); WBC Urine 50-100 (0-5)
[2024-03-17] MEDS: KETOROLAC 15 MG/ML inj IVP (13:52)
[2024-03-17 14:07] VITALS: PULSE 79
== END 2024-03-17 15:21 | disposition home or self-care (01) ==
PROVIDERS: Emergency Provider Family Medicine; PCP Family Medicine
DX: R53.83 Other fatigue (principal); N18.2 Chronic kidney disease, stage 2 (mild); R79.1 Abnormal coagulation profile; R14.0 Abdominal distension (gaseous); N39.0 Urinary tract infection, site not specified
CPT/HCPCS: 36415; 70450; 71250; 74176; 80048; 80076; 81001; 83735; 83880; 84484; 85025; 85610; 87086; 87186; 87631; 93005; 96374; 99284; 99285; J1885

== ENCOUNTER 2024-05-13 13:25 | Emergency (ER) | payer MEDICARE, SELFPAY ==
[2024-05-13 13:36] VITALS: BP 123/84; PULSE 85; RESP 18; TEMP 36.3; O2SAT 94; BMI 41.0
--- NOTE | 2024-05-13 14:08 | CRLHL7_ITS ---
For Patients: As a result of the Century Cures Act, medical imaging exams and procedure reports are released immediately into your electronic medical record. You may view this report before your referring provider. If you have questions, please contact your health care provider. INDICATION: Distention. COMPARISON: None available. TECHNIQUE: Views: 2; (5 images) FINDINGS: Nondilated bowel. Nonspecific moderate colonic fecal loading. No significant incidental calcifications. The visualized skeleton demonstrates no significant incidental findings. IMPRESSION: No specific radiographic findings to explain abdominal distention. Incidental findings described in the body of the report. Dictated by Chuck Tucker MD @ 05/13/2024 2:30:59 PM (Electronically Signed)
--- NOTE | 2024-05-13 14:09 | ED_ITS ---
HPI - General Adult General Chief complaint: Diarrhea Stated complaint: bloated & diarrhea Time Seen by Provider: 05/13/24 13:51 Source: patient Mode of arrival: ambulatory Limitations: no limitations History of Present Illness HPI narrative: 68 year male presenting today with several concerns. 1. Abdominal bloating. This has been present for many months. Patient was seen in the ER in March for the same concern where a chest, abdomen, pelvis CT was done which showed moderate stool burden and no other significant acute abnormalities. He states that the bloating has remained the same for the last 2 months. He denies any new weight gain in the last 2 months. He denies nausea or vomiting. 2. Second problem today is diarrhea. He states that he had diarrhea for 1 week and now he is improving. He describes his diarrhea as 2 bowel movements per day which are soft. He states that normally he has 2 bowel movements per day with they are not as soft. He denies pain with defecation. He denies blood in his stools. 3. He is concerned about dysuria going on for about 1 week. 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 He was on long- term antibiotic therapy which is now done. In the last week he has noticed dysuria at the end of urination and increased urinary frequency. Patient states that since his prostate surgery several months ago he continues to have urinary incontinence and this is unchanged. 4. patient is concerned about his blood sugars. States that he has been running 2-300 consistently. He has been told that he needs to be on Jardiance but he can not afford it. He currently is taking metformin, Lantus and Victoza. He denies any abdominal pain. No confusion, blurry vision. Lastly, patient is concerned that he stop taking his Coumadin 1 week ago. He states that he severed his care at [facility] and does not want to see them anymore and did not get a refill before he stopped seeing his care primary care provider. Related Data Home Medications ?Medication ?Instructions ?Recorded ?Confirmed hydrochlorothiazide 25 mg tablet 50 mg PO DAILY 09/04/23 05/13/24 insulin glargine 100 unit/mL (3 80 unit subcut Q24H 09/04/23 05/13/24 mL) subcutaneous pen (Lantus Solostar U-100 Insulin) metformin 500 mg tablet,extended 1,000 mg PO BID 09/04/23 05/13/24 release 24 hr metoprolol tartrate 100 mg tablet 100 mg PO BID 09/04/23 05/13/24 rosuvastatin 20 mg tablet 20 mg PO QPM 09/04/23 05/13/24 liraglutide 0.6 mg/0.1 mL (18 mg/3 1.8 mg subcut DAILY 02/06/24 05/13/24 mL) subcutaneous pen injector amlodipine 10 mg tablet mg 03/17/24 potassium chloride 20 mEq meq PO 03/17/24 tablet,extended release lisinopril .ROUTE 05/13/24 spironolactone .ROUTE 05/13/24 Previous Rx's ?Medication ?Instructions ?Recorded warfarin 3 mg tablet 6 mg (2 x 3 mg) PO DAILY #60 tabs 02/07/24 warfarin 5 mg tablet 5 mg PO DAILY #14 tabs 05/13/24 Allergies Allergy/AdvReac Type Severity Reaction Status Date / Time No Known Drug Allergies Allergy Verified 05/13/24 13:45 Review of Systems Status of ROS: Reports: 10 or more systems reviewed and unremarkable except as noted in History and below [facility] Medical History Abscess of prostate ?N41.2 - Abscess of prostate (ICD-10) MRSA (methicillin resistant Staphylococcus aureus) ?A49.02 - Methicillin resistant Staphylococcus aureus infection, unspecified site (ICD-10) CKD (chronic kidney disease) stage 2, GFR 60-89 ml/min (01/17/24) ?N18.2 - Chronic kidney disease, stage 2 (mild) (ICD-10) Sleep apnea (03/30/16) ?G47.30 - Sleep apnea, unspecified (ICD-10) Right atrial thrombus (10/08/19) ?I51.3 - Intracardiac thrombosis, not elsewhere classified (ICD-10) Polyp of colon (12/31/17) ?K63.5 - Polyp of colon (ICD-10) Patent foramen ovale (10/09/16) ?Q21.12 - Patent foramen ovale (ICD-10) Obesity, morbid (03/07/23) ?E66.01 - Morbid (severe) obesity due to excess calories (ICD-10) Mixed hyperlipidemia (03/19/17) ?E78.2 - Mixed hyperlipidemia (ICD-10) Melena (12/10/17) ?K92.1 - Melena (ICD-10) Hypertensive urgency (10/16/17) ?I16.0 - Hypertensive urgency (ICD-10) Hypertension (03/30/16) ?I10 - Essential (primary) hypertension (ICD-10) H/O bacterial endocarditis (06/21/18) ?Z86.79 - Personal history of other diseases of the circulatory system (ICD- 10) Fatigue (11/21/18) ?R53.83 - Other fatigue (ICD-10) Edema of lower extremity (11/21/18) ?R60.0 - Localized edema (ICD-10) Type 2 diabetes mellitus (03/03/11) ?E11.9 - Type 2 diabetes mellitus without complications (ICD-10) Cardiomyopathy (07/10/18) ?I42.9 - Cardiomyopathy, unspecified (ICD-10) Ascending aorta dilation (07/02/23) ?I77.810 - Thoracic aortic ectasia (ICD-10) Anticoagulation monitoring, INR range 2-3 (10/09/19) ?Z79.01 - detacker (current) use of anticoagulants (ICD-10) Adenomatous colon polyp (01/01/18) ?D12.6 - Benign neoplasm of colon, unspecified (ICD-10) Surgical History H/O cystoscopy ?Z98.890 - Other specified postprocedural states (ICD-10) H/O colonoscopy ?Z98.890 - Other specified postprocedural states (ICD-10) Social History Narrative: Denies tobacco or alcohol use. Wishes to be FULL CODE. What is your current living situation?: I presently have a place to live Problems where you live: no known problems Problems where you live details: no known problem In the past 12 months, utilities in danger of being shut off: no In past 12 months, lack of transportation kept you from medical appts, meetings, work, or getting things needed for daily living: no In the past 12 mos, have been you worried that your food would run out before you had money to buy more?: never true In the past 12 mos, the food you bought just didn't last and you didn't have money to buy more?: never true Smoking Status: Former smoker Do you use any of these nicotine containing products: None Second hand tobacco smoke exposure: No How often do you have a drink containing alcohol: monthly or less How often do you have six or more drinks on one occasion: Never AUDIT-C Alcohol total score: 1 Non-prescribed substance use: denies use Caffeine: Yes (Coffee) How often does anyone, including family, friends and others, physically hurt you : never How often does anyone, including family, friends and others, insult or talk down to you: never How often does anyone, including family, friends and others, threaten you with harm: never How often does anyone, including family, friends and others, scream or curse at you: never service: No Exam Narrative: Exam Narrative: Obese patient in no acute distress. Alert and oriented. Answers questions appropriately. Mood and affect are appropriate. Thoughts are goal oriented and rational. No tangential or magical thinking noted. Patient speaks in full sentences without needing to catch his breath. HEENT: Normocephalic atraumatic. Pupils are equally round reactive to light. Extraocular muscles are intact. Conjunctivae are moist without any icterus noted. Moist mucous membranes. Posterior pharynx is normal. Neck is soft. Cardiovascular: Heart is regular rate and rhythm S1 and S2 are present without any murmurs. Lungs: Clear to auscultation bilaterally no wheezes rhonchi or rales are appreciated. Patient takes deep breaths without any discomfort. Abdomen: Soft and nontender with normal bowel sounds. Abdomen is quite protuberant. Difficult to assess for organomegaly secondary to body habitus. Extremities: Bilateral lower extremities are without edema. Normal DP and PT pulses. Skin: Well perfused without any obvious rashes. Const: Vital Signs, click to edit/add: Vital Signs - 24 hr 05/13/24 13:36 05/13/24 15:20 05/13/24 15:32 Temperature 97.3 F L Pulse Rate 79 74 Pulse Rate [Pulse Oximeter] 85 Respiratory Rate 18 16 16 Blood Pressure 144/74 H 145/70 H Blood Pressure [Ri ght Upper Arm] 123/84 Pulse Oximetry 94 94 94 Oxygen Delivery Me thod Room Air 05/13/24 16:02 05/13/24 16:32 Temperature Pulse Rate 80 79 Pulse Rate [Pulse Oximeter] Respiratory Rate 12 15 Blood Pressure 126/93 H 152/76 H Blood Pressure [Ri ght Upper Arm] Pulse Oximetry 94 95 Oxygen Delivery Me thod Course Course ED Course: Did review the patient's imaging done in March and his CT scan was unremarkable. He states that since then he has not had any GI follow-up, no colonoscopy or EGD. He believes that his last EGD was in 2016 and last colostomy was in 2018, he was told to have a repeat colonoscopy in 5 years but has not done so yet. We discussed that the patient likely needs an EGD and/or colonoscopy. In the meantime I do think that working up his increased urinary frequency and dysuria given his history would be important. Therefore, labs were drawn: CBC was unremarkable. His sodium is slightly low at 133, otherwise is normal chemistries are unremarkable. His blood glucose is markedly elevated at 396 hurt and his lactate is also elevated at 2.7. Normal LFTs, normal BNP and normal lipase. At this time we started normal saline given his elevated lactate and gave the patient 10 units of regular insulin. His UA was abnormal but actually looked better than previous UAs. He does have 1+ leukocyte esterase with 2-5 RBCs and time to 10 wbc's. Repeat glucose improved to 256. Abdominal x-ray, read by me, showed a moderate amount of stool. Vital Signs Vital signs: Initial Vital Signs Temperature 97.3 F L 05/13/24 13:36 Temperature Source Temporal Artery Scan 05/13/24 13:36 Pulse Rate 85 05/13/24 13:36 Respiratory Rate 18 05/13/24 13:36 Blood Pressure 123/84 05/13/24 13:36 Blood Pressure Mean 97 05/13/24 13:36 Pulse Oximetry 94 05/13/24 13:36 Oxygen Delivery Method Room Air 05/13/24 13:36 Vital Signs Temperature 97.3 F L 05/13/24 13:36 Pulse Rate 85 05/13/24 13:36 Respiratory Rate 18 05/13/24 13:36 Blood Pressure 123/84 05/13/24 13:36 Pulse Oximetry 94 05/13/24 13:36 Oxygen Delivery Method Room Air 05/13/24 13:36 Temperature 97.3 F L 05/13/24 13:36 Pulse Rate 79 05/13/24 16:32 Respiratory Rate 15 05/13/24 16:32 Blood Pressure 152/76 H 05/13/24 16:32 Pulse Oximetry 95 05/13/24 16:32 Oxygen Delivery Method Room Air 05/13/24 13:36 Medications Administered Medications: Discontinued Medications Generic Name Dose Route Start Last Admin Trade Name Parveen PRN Reason Stop Dose Admin Sodium Chloride 1,000 mls @ 1,000 mls/hr 05/13/24 15:15 05/13/24 16:20 0.9 % Sodium Chloride 1000 Ml IV 05/13/24 16:14 Infused .Q1H BILLIE Infusion Insulin Human Regular 10 unit 05/13/24 15:22 05/13/24 15:30 Insulin Regular, Human 100 Unit/Ml Vial IVP 05/13/24 15:23 10 unit ONCE ONE Administration Medical Decision Making MDM Narrative Medical decision making narrative: Elevated blood sugars - appears that patient's diabetes is not well controlled. This is compounded by the fact that he has ever ties with his previous provider. At this time he is taking Lantus 50 units b.i.d.. At this time recommend simply increasing his Lantus to 52 b.i.d. and titrating upwards as needed. He has run out of Coumadin - will refill his meds for 2 weeks. He was on 6 mg f or 5 times per week and 4 mg 2 times per week, however the patient is uncertain if this was exact dosing her. Because of this we will simply restart him on 5 mg daily. He understands that he needs to have an INR checked before the end of the week. Abdominal distension - differential diagnosis includes gastroparesis, central obesity, constipation. Given the amount of stool present I do think con stipation is certainly playing a role. He does have MiraLax at home. Will restart 1 scoop per day. Dysuria with history of recurrent infection - discussed this at length with the patient. He is concerned because he has been on recurrent antibiotics. He would like to wait for the urine culture to come back before starting any treatment. I think this is reasonable given that he has mild dysuria at the end of urination. Medical Records Medical records reviewed: Yes I reviewed the patient's medical records Lab Data Lab results reviewed: Yes I reviewed the patient's lab results Labs: Lab Results 05/13/24 05/13/24 05/13/24 Range/Units 14:31 14:49 16:45 WBC 9.18 (4.50-11.00) K/uL RBC 5.27 (4.30-5.90) m/uL Hgb 15.0 (13.5-17.5) gm/dL Hct 44.3 (37.0-53.0) % MCV 84 (80-100) fL MCH 29 (26-34) pg MCHC 34 (32-36) gm/dL RDW Coeff of Yunior 14.1 (11.5-15.5) % Plt Count 190 (140-440) K/uL Neut % (Auto) 64.5 (42.0-72.0) % Lymph % (Auto) 17.4 L (20-44) % [place] % (Auto) 12.9 H (0.0-11.0) % Eos % (Auto) 4.2 (0.0-7.0) % Baso % (Auto) 0.5 (0.0-3.0) % Neut # (Auto) 5.91 (1.7-7.0) K/uL Lymph # (Auto) 1.60 (0.90-2.90) K/uL [place] # (Auto) 1.20 H (0.00-0.90) K/UL Eos # (Auto) 0.39 (0.00-0.50) K/uL Baso # (Auto) 0.05 (0.00-0.30) K/uL Abs Immat Gran (auto) 0.05 (0.00-0.30) K/uL Imm/Tot Granulo (auto) 0.5 % Sodium 133 L (135-149) mmol/L Potassium 4.7 (3.6-5.1) mmol/L Chloride 102 (96-114) mmol/L Carbon Dioxide 19 L (20-32) mmol/L Anion Gap 12 (7-15) mEq/L BUN 23 (7-30) mg/dL Creatinine 0.9 (0.5-1.5) mg/dL Estimated Creat Clear 67.94 Estimated GFR 94 ml/min Glucose 396 H* (60-115) mg/dL Lactate 2.7 H (0.5-1.9) mmol/L Calcium 10.2 (8.4-10.6) mg/dL Total Bilirubin 0.5 (0.1-1.5) mg/dL Direct Bilirubin 0.3 (0.0-0.5) mg/dL AST 31 (12-35) U/L ALT 35 (4-50) U/L Alkaline Phosphatase 96 (40-150) U/L C-Reactive Protein 0.8 (0.5-1.0) mg/dL NT-Pro-B Natriuret Pep 95 pg/mL Total Protein 8.1 (6.0-8.3) g/dL Albumin 4.9 (3.3-5.0) g/dL Lipase 145 (23-300) U/L Urine Color Yellow (Yellow) Urine Appearance Clear (Clear) Urine pH 5.5 (5.0-8.5) Ur Specific [place] 1.010 (1.000-1.030) Urine Protein 2+ A (Negative) Urine Glucose (UA) 2+ A (Negative) Urine Ketones Negative (Negative) Urine Blood 2+ A (Negative) Urine Nitrite Negative (Negative) Urine Bilirubin Negative (Negative) Urine Urobilinogen 0.2 (0.2-1.0) Ur Leukocyte Esterase 1+ A (Negative) Urine RBC 2-5 A (0-2) Urine WBC 5-10 A (0-5) Ur Squamous Epith Cells Few (None-Few) Urine Bacteria Few A (None) POC Glucose 256 H (60-115) mg/dl Imaging Data Abdominal x-ray: Attestation: I have reviewed the pertinent imaging results. Radiologist's impression: Views: 2; (5 images) FINDINGS: Nondilated bowel. Nonspecific moderate colonic fecal loading. No significant incidental calcifications. The visualized skeleton demonstrates no significant incidental findings. IMPRESSION: No specific radiographic findings to explain abdominal distention. Incidental findings described in the body of the report. ECG Data Attestation: I personally reviewed and interpreted this ECG as follows: Discharge Plan Discharge Clinical Impression: Dysuria, Elevated blood sugar, Abdominal bloating, Constipation Patient Disposition: Home, Self-Care Condition: Stable Additional Instructions: 1. Dysuria-for your burning with urination we will wait for urine cultures to return and decide if you need to be treated with antibiotics or not. If your cultures return and you require treatment you will be notified by the ER. 2. Abdominal bloating and moderate stool seen on x-ray-start daily scoop of MiraLax. Also recommend you follow-up with your primary care provider to discuss doing an EGD or studies to see how quickly your stomach is emptying. 3. Will restart Coumadin 5 mg daily. You do need an INR checked in 3 days. You must establish care with a primary care provider. 4. Elevated blood sugars. Increase your Lantus to 52 units twice daily. You can increase this to 54 units daily if blood sugars remain elevated, however I do recommend that you follow-up with your primary care provider before increasing it again. Prescriptions: New warfarin 5 mg tablet 5 mg PO DAILY Qty: 14 0RF No Action metoprolol tartrate 100 mg tablet 100 mg PO BID hydrochlorothiazide 25 mg tablet 50 mg PO DAILY Hold Instructions: held with high K- has not been told to restart it metformin 500 mg tablet extended release 24 hr 1,000 mg PO BID rosuvastatin 20 mg tablet 20 mg PO QPM insulin glargine [Lantus Solostar U-100 Insulin] 100 unit/mL (3 mL) insulin pen 80 unit subcut Q24H amlodipine 10 mg tablet Rx Instructions: Take 1 Tablet (10 mg) by mouth once daily. potassium chloride 20 mEq tablet extended release PO Rx Instructions: Take 1 Tablet (20 mEq) by mouth once daily with a meal. spironolactone .ROUTE lisinopril .ROUTE liraglutide 0.6 mg/0.1 mL (18 mg/3 mL) pen injector 1.8 mg SUBCUT DAILY Rx Instructions: Inject 1.8 mg subcutaneous once daily. warfarin 3 mg tablet 6 mg PO DAILY Qty: 60 0RF Follow Up/Referrals: Opal Richards DO [Primary Care Provider] - Stand Alone Forms: [employer] Info Instructions
--- OUTSIDE RECORDS SUMMARY | 2024-05-13 14:22 | XMS_ITS | Clinical Summary ---
Author Organization [facility] Address [place], [place] [address] Care Team Providers Care Manager Ob Name Role Phone Unavailable Primary Care Provider Unavailabl e Allergies Active Allergy Reactions Criticality Noted Date Comments Iodine Hives 10/08/2019 Medications Medication Sig Dispensed Refills Start Date End Date Status Jigeg-1-NUI-EPA-Fi sh Oil 1,000 mg (120 mg-180 mg) capIndications:Hyp erlipidemia, unspecified hyperlipidemia type Take 1 capsule by mouth once daily. 90 capsule 3 0 Active Microlet LancetIndications: Uncontrolled type 2 diabetes mellitus with hyperglycemia (HC) USE TO TEST BLOOD GLUCOSE FOUR TIMES A DAY 400 Each 3 2 Active blood-glucose meterIndications:U ncontrolled type 2 diabetes [...] be used to read blood sugars, follow audit mgr directions. 9 Each 3 3 Active Dexcom G7 Dairy Quality Assurance Officer for continuous blood glucose monitor (CGM)Indications:U ncontrolled type 2 diabetes mellitus with hyperglycemia (HC) To be used to read blood sugars follow audit mgr directions. 1 Each 3 Active acetaminophen (TYLENOL [...] once daily. 36 mL 4 Active Insulin [place], Disposable, (Novofine 32) 32 gauge x 1/4 To be used once daily with Victoza 200 Each 2 4 Active ferrous sulfate 325 mg delayed release tabletIndications: Iron deficiency anemia, unspecified iron deficiency anemia type Take 1 Tablet (325 mg) by mouth once daily with a meal. 90 Tablet 4 Active multivitamins-mine rals-lutein (Multivitamin 50 Plus) tab tablet Take 1 Tablet by mouth once daily. Active oxygen-air delivery systems (HOME OXYGEN)Indications :Sleep apnea, unspecified type Oxygen for home use. Liters per minute: 2-3 per nasal cannula. Frequency of use: Nocturnal;. Length of need: 999 Months. 1 Each 4 Active trimethoprim-sulfa methoxazole, 160-800 mg, (BACTRIM DS, SEPTRA DS) tabIndications:Pro state abscess Take 1 Tablet by mouth two times daily. 80 Tablet 4 Active cetirizine (ZYRTEC) 10 mg tabletIndications: Environmental allergies Take 1 Tablet (10 mg) by mouth once daily. 30 Tablet 4 Active Lantus Solostar U-100 Insulin 100 unit/mL (3 mL) penIndications:Unc ontrolled type 2 diabetes mellitus with hyperglycemia (HC) Inject 88 units subcutaneous before bedtime. 90 mL 4 Active Diaper,Brief, Adult,DisposableIn dications:Urinary incontinence, unspecified type For home use. Size XL. 100 Each 4 Active warfarin (COUMADIN) 3 mg tabletIndications: Right atrial thrombus,Patent foramen ovale,Anticoagulat ion monitoring, INR range 2-3,Anticoagulant long-term use Take by mouth 3 mg (3 mg x 1) every Sun; 6 mg (3 mg x 2) all other day in the evening OR as directed 4 Active metFORMIN (GLUCOPHAGE XR) 500 mg Extended-Release tabletIndications: Uncontrolled type 2 diabetes mellitus with hyperglycemia (HC) TAKE TWO TABLETS (1,000 MG) BY MOUTH TWICE A DAY WITH MEALS . 360 Tablet 4 Active amLODIPine (NORVASC) 10 mg tabletIndications: Hypertension TAKE ONE TABLET BY MOUTH EVERY DAY 90 Tablet 4 Active amLODIPine (NORVASC) 10 mg tabletIndications: Hypertension Take 1 Tablet (10 mg) by mouth once daily. 90 Tablet 3 3 024 Discontinued metFORMIN (GLUCOPHAGE XR) 500 mg Extended-Release tabletIndications: Uncontrolled type 2 diabetes mellitus with hyperglycemia (HC) Take 2 Tablets (1,000 mg) by mouth two times daily with meals. 120 Tablet 4 024 Discontinued Active Problems Problem Noted Date [...] Encounters Date Type Department Care Team Description 05/13/[address] [address] Pcp, No Anticoagulation (INR OVERDUE REMINDER #4 ) 05/02/[address] [address] Opal Richards, DO Medication Problem (warfarin ) 05/02/[address] [address] Radha Prieto MD Refill Request (Amlodipine) 04/28/[address] [address] Opal Richards, Anticoagulation (INR OVERDUE REMINDER #3 ) 04/22/[address] [address] Opal Richards, Appointment 04/19/[address] [address] Opal Richards, Refill Request (Metformin) 04/18/[address] [address] Radha Prieto MD Refill Request (Hydrochlorothiazide) 04/14/2024 Telephone [facility] [address] [place] [address] Opal Richards, Anticoagulation (OVERDUE #2 Reminder) 03/17/2024 Telephone [facility] [address] [place] [address] Rony Larson MD Medication Management (Abx) 03/06/2024 Telephone [facility] [address] [place] [address] Opal Richards DO Medication Management (rosuvastatin (CRESTOR) 20 mg tablet) 03/06/2024 Telephone [facility] [address] [place] [address] Opal Richards, Results 03/05/2024 10:50 AM CDT Office Visit [facility] [address] [place] [address] Opal Richards, Diabetes (Follow up ) 03/05/2024 Anticoagulation (warfarin) [facility] [address] [place] [address] 1, [facility] Anticoagulation 03/05/2024 Travel 02/26/2024 10:45 AM CDT Office Visit [facility] [address] [place] [address] Rony Larson MD Hospital F/U 02/26/2024 8:20 AM CDT Orders Only [facility] [address] [place] [address] Only, [facility] Lab Lab 02/26/2024 Travel 02/25/2024 Telephone [facility] [address] [place] [address] Opal Richards DO Anticoagulation (INR result) 02/21/2024 Telephone [facility] [address] [place] [address] Opal Richards, DO Results 02/21/2024 Telephone [facility] [address] [facility] [address] Jonathan Salazar MD Abnormal Lab Results 02/20/2024 2:00 PM CDT Office Visit [facility] [address] [facility] [address] Opal Richards, Follow Up (Has been to the ER several times this month. Is on antibiotics for both MRSA and E.Coli) 02/20/2024 Telephone [facility] [address] [place] [address] [place], [facility] Referral (/Abnormal prostate biopsy [R89.7]/Lymphoma, unspecified body region, unspecified lymphoma type (HC) [C85.90]//) 02/20/2024 Travel 02/14/2024 Telephone [facility] [address] [facility] [address] [place] [address] Gio Castanon MD Results (UC+ e. coli) 02/13/2024 Telephone [facility] [address] [facility] [address] Opal Richards, DO Results 02/12/2024 8:45 AM CDT Orders Only [facility] [address] [place] [address] Lab, [facility] 02/12/2024 Anticoagulation (warfarin) [facility] [address] [place] [address] 1, [facility] Anticoagulation 02/12/2024 Telephone [facility] [address] [place] [address] Opal Richards, Lab 02/12/2024 Travel 02/11/2024 Orders Only [facility] Scanner 1 scan: (1-Ord) INCOMING RECORDS-EKG, [facility], 02/11/2024 02/11/2024 Orders Only [facility] Scanner 1 scan: (1-Ord) INCOMING RECORDS-CT, [facility], 02/11/2024 02/11/2024 Orders Only [facility] Scanner 1 scan: (1-Ord) INCOMING RECORDS-LABS, [facility], 02/11/2024 from Last 3 Months Immunizations Name Administration [...] 01/18/2024 9:17 AM CDT Plan of Treatment Health Maintenance Due Date Last Done Comments Colonoscopy through age 75 12/31/2020 12/31/2017, Medicare Wellness for age 65+ 04/23/2024 04/23/2023 Depression screening for age 12+ 04/27/2024 04/27/2023, 04/24/2023, 04/23/2023, Additional history exists COVID-19 vaccine series ( season) 2024 07/03/2022, 12/27/2021, 11/03/2020, Additional history exists Influenza for age 65+ 05/11/2024 07/03/2022 , 07/04/2021, 06/15/2020, Additional history exists BMI (ht and wt on same day) for age 18+ 01/13/2025 01/14/2024, 04/23/2023, 03/07/2023, Additional history exists Tetanus booster 03/19/2027 03/19/2017, 0409/2007, 12/20/2007 Lipids for age 45-75 06/19/2028 06/19/2023, [...] CDT SCAN CORRESP-IMAGING 02/11/2024 12:00 AM CDT US ABD AORTA SCREENING Routine 07/02/2023 9:12 [...] Results * SODIUM (03/05/2024 11:55 AM CDT) SODIUM 136 136 - 145 mmol/L 03/06/2024 12:51 AM CDT [facility] Blood BLOOD SPECIMEN / Unknown Venipuncture / Unknown 03/05/2024 11:55 AM CDT 03/05/2024 11:58 AM CDT Opal Lawsonxler CHEMISTRY Performing Organization Address City/[facility]/ZIP Co de Phone Number [facility] [address] [place] [address], * POTASSIUM (03/05/2024 11:55 AM CDT) Only the most recent of3 resultswithin the time period is included. POTASSIUM 4.8 3.5 - 5.1 mmol/L 03/06/2024 12:51 AM CDT [facility] Blood BLOOD SPECIMEN / Unknown Venipuncture / Unknown 03/05/2024 11:55 AM CDT 03/05/2024 11:58 AM CDT Opal Richards DO CHEMISTRY Performing Organization Address [facility] de Phone Number [facility] [address] [place] [address], * (ABNORMAL) CREATININE (03/05/2024 11:55 AM CDT) Only the most recent of2 resultswithin the time period is included. eGFR 71(L) >90 mL/min/1.7 3m2 03/06/2024 12:51 AM CDT [facility] Comment:As of 2021, eG FR is calculated by the CKD-EPI creatinine equation without race adjustment. ??eGFR can be influenced by muscle mass, exercise, and diet. ??The reported eGFR is an estimation only and is only applicable if the renal function is stable. CREATININE 1.14 0.70 - 1.20 mg/dL 03/06/2024 12:51 AM CDT [facility] Blood BLOOD SPECIMEN / Unknown Venipuncture / Unknown 03/05/2024 11:55 AM CDT 03/05/2024 11:58 AM CDT Opal Richards DO CHEMISTRY Performing Organization Address [facility] de Phone Number [facility] [address] [address], * (ABNORMAL) PROTIME-INR (03/05/2024 11:55 AM CDT) Only the most recent of3 resultswithin the time period is included. Pathologist [facility] INR 1.7(H) <1.3 03/05/2024 4:05 PM CDT [facility] PROTIME 19.2(H) 10.3 - 12.3 sec 03/05/2024 4:05 PM CDT [facility] Blood BLOOD SPECIMEN / Unknown Venipuncture / Unknown 03/05/2024 11:55 AM CDT 03/05/2024 11:58 AM CDT Narrative [facility] - 03/05/2024 4:05 PM CDT [...] Opal Richards DO HEMATOLOGY Performing Organization Address [facility] Co de Phone Number [facility] [address] [address], [place] * (ABNORMAL) CBC WITH AUTO DIFFERENTIAL (02/20/2024 2:51 PM CDT) WHITE BLOOD COUNT 10.7 4.5 - 11.0 thou/cu mm 02/20/2024 3:39 PM CDT [facility] RED BLOOD COUNT 4.04(L) 4.30 - 5.90 mil/cu mm 02/20/2024 3:39 PM CDT [facility] HEMOGLOBIN 11.6(L) 13.5 - 17.5 g/dL 02/20/2024 3:39 PM CDT [facility] HEMATOCRIT 33.1(L) 37.0 - 53.0 % 02/20/2024 3:39 PM CDT [facility] MCV 82 80 - 100 fL 02/20/2024 3:39 PM CDT [facility] MCH 28.7 26.0 - 34.0 pg 02/20/2024 3:39 PM CDT [facility] MCHC 35.0 32.0 - 36.0 g/dL 02/20/2024 3:39 PM CDT [facility] RDW 14.5 11.5 - 15.5 % 02/20/2024 3:39 PM CDT [facility] PLATELET COUNT 238 140 - 440 thou/cu mm 02/20/2024 3:39 PM CDT [facility] MPV 10.5 6.5 - 11.0 fL 02/20/2024 3:39 PM CDT [facility] Blood BLOOD SPECIMEN / Unknown Venipuncture / Unknown 02/20/2024 2:51 PM CDT 02/20/2024 2:51 PM CDT Opal Richards DO HEMATOLOGY Performing Organization Address City/[facility]/ZIP Co de Phone Number [facility] [address] [place] [address], * RED CELL MORPHOLOGY (02/20/2024 2:51 PM CDT) RBC COMMENT RBC morphology appears normal RBC morphology appears normal, RBC morphology within normal limits for newborns. 02/20/2024 3:38 PM CDT [facility] Blood BLOOD SPECIMEN / Unknown Venipuncture / Unknown 02/20/2024 2:51 PM CDT 02/20/2024 2:51 PM CDT Opal Richards DO HEMATOLOGY [facility] [address] [place] [address], [place] [phone] * PLATELET ESTIMATE (02/20/2024 2:51 PM CDT) PLATELET ESTIMATE Adequate Adequate, No estimate 02/20/2024 3:38 PM CDT [facility] Blood BLOOD SPECIMEN / Unknown Venipuncture / Unknown 02/20/2024 2:51 PM CDT 02/20/2024 2:51 PM CDT Opal Richards DO HEMATOLOGY [facility] [address] [place] [address], [place] [phone] * (ABNORMAL) MANUAL DIFFERENTIAL (02/20/2024 2:51 PM CDT) % NEUTROPHILS 70.0 % 02/20/2024 3:38 PM CDT [facility] % LYMPHOCYTES 18.0 % 02/20/2024 3:38 PM CDT [facility] % MONOCYTES 9.0 % 02/20/2024 3:38 PM CDT [facility] % EOSINOPHILS 3.0 % 02/20/2024 3:38 PM CDT [facility] % BASOPHILS 0.0 % 02/20/2024 3:38 PM CDT [facility] NEUTROPHILS ABSOLUTE 7.5(H) 1.7 - 7.0 thou/cu mm 02/20/2024 3:38 PM CDT [facility] LYMPHOCYTES ABSOLUTE 1.9 0.9 - 2.9 thou/cu mm 02/20/2024 3:38 PM CDT [facility] MONOCYTES ABSOLUTE 1.0(H) <0.9 thou/cu mm 02/20/2024 3:38 PM CDT [facility] EOSINOPHILS ABSOLUTE 0.3 <0.5 thou/cu mm 02/20/2024 3:38 PM CDT [facility] BASOPHILS ABSOLUTE 0.0 <0.3 thou/cu mm 02/20/2024 3:38 PM CDT [facility] Blood BLOOD SPECIMEN / Unknown Venipuncture / Unknown 02/20/2024 2:51 PM CDT 02/20/2024 2:51 PM CDT Opal Tavera Maurice MARROQUIN HEMATOLOGY [facility] [address] [place] [address], * (ABNORMAL) BASIC METABOLIC PANEL (02/20/2024 2:51 PM CDT) Only the most recent of2 resultswithin the time period is included. SODIUM 131(L) 136 - 145 mmol/L 02/20/2024 11:58 PM CDT [facility] POTASSIUM 3.5 3.5 - 5.1 mmol/L 02/20/2024 11:58 PM CDT [facility] CHLORIDE 88(L) 98 - 107 mmol/L 02/20/2024 11:58 PM CDT [facility] CO2,TOTAL 25 22 - 29 mmol/L 02/20/2024 11:58 PM CDT [facility] ANION GAP 18 5 - 18 02/20/2024 11:58 PM T [facility] GLUCOSE 511(HH) 70 - 99 mg/dL 02/20/2024 11:58 PM CDT [facility] CALCIUM 9.6 8.8 - 10.2 mg/dL 02/20/2024 11:58 PM CDT [facility] BUN 46(H) 8 - 23 mg/dL 02/20/2024 11:58 PM CDT [facility] CREATININE 2.03(H) 0.70 - 1.20 mg/dL 02/20/2024 11:58 PM T [facility] BUN/CREAT RATIO 23(H) 10 - 20 11:58 PM CDT [facility] eGFR 35(L) >90 mL/min/1.7 3m2 02/20/2024 11:58 PM CDT [facility] Comment:As of 2021, eG FR [...] Opal Richards DO CHEMISTRY Performing Organization Address City/[facility]/ZIP Co de Phone Number [facility] [address] [place] [address], [place] * PLATELET COUNT (02/12/2024 8:50 AM CDT) PLATELET COUNT 235 140 - 440 thou/cu mm 02/12/2024 8:59 AM CDT [facility] MPV 10.8 6.5 - 11.0 fL 02/12/2024 8:59 AM CDT [facility] Blood BLOOD SPECIMEN / Unknown Venipuncture / Unknown 02/12/2024 8:50 AM CDT 02/12/2024 8:51 AM CDT Narrative [facility] - 02/12/2024 8:59 AM CDT MD to monitor if out of range, to monitor for Heparin-Induced Thrombocytopenia while on lovenox. Opal Richards DO HEMATOLOGY Performing Organization Address City/[facility]/ZIP Co de Phone Number [facility] [address] [place] [address], [place] [phone] * SCAN CORRESP-LABORATORY RESULTS (02/11/2024 12:00 AM CDT) Scanner OTHER * SCAN CORRESP-EKG RESULTS (02/11/2024 12:00 AM CDT) Scanner OTHER * SCAN CORRESP-IMAGING (02/11/2024 12:00 AM CDT) Anatomical Region Laterality Modality Other Scanner OTHER * US ABD AORTA SCREENING [[id number]] (07/02/2023 9:12 AM CDT) Anatomical Region Laterality [...] For Patients: As a result of the s Act, medical imagingexams and procedure reports are [...] - 199 mg/dL 06/20/2023 7:00 AM CDT [facility] Comment: Cholesterol, Total Reference Ranges Desirable <200 mg/dL Borderline 200-239 mg/dL High >=240 mg/dL TRIGLYCERIDES 530(H) <150 mg/dL 06/20/2023 7:00 AM CDT [facility] HDL CHOLESTEROL 30(L) >40 mg/dL 3 7:00 AM CDT [facility] NON-HDL CHOLESTEROL 129 <145 mg/dl 06/20/2023 7:00 AM CDT [facility] CHOL/HDL RATIO 5.30(H) <4.50 06/20/2023 7:00 AM CDT [facility] LDL CHOLESTEROL 3 7:00 AM CDT [facility] Comment:Invalid LDL when Tri g >400. VLDL CHOLESTEROL COMMENT 06/20/2023 7:00 AM CDT [facility] Comment:Unable to calculate VLDL. PROVIDER ORDERED STATUS RANDOM 06/20/2023 7:00 AM CDT [facility] Blood BLOOD SPECIMEN / Unknown Venipuncture / Unknown 06/19/2023 11:13 AM CDT 06/19/2023 11:15 AM CDT Opal Richards DO [facility]Y [facility] [address] [place] [address], * ANTI HCV (02/27/2020 2:02 PM CDT) HEPATITIS C ANTIBODY Non-React gennaro Non-React gennaro 02/27/2020 8:36 PM CDT [facility] Comment:Antibodies to HCV no t detected; does not exclude the possibility of exposure to HCV. Blood BLOOD SPECIMEN / Unknown Butterfly / Unknown 02/27/2020 2:02 PM CDT 02/27/2020 2:03 PM CDT Radha Prieto MD SEND OUTS [facility] [address] [place] [address], [place] * SCAN-COLONOSCOPY (12/31/2017 12:00 AM CDT) [...]
[2024-05-13 14:55] LABS: Basophils Absolute Auto 0.05 K/uL (0.00-0.30); Basophils Percent Auto 0.5 % (0.0-3.0); Eosinophils Absolute Auto 0.39 K/uL (0.00-0.50); Eosinophils Percent Auto 4.2 % (0.0-7.0); Hematocrit 44.3 % (37.0-53.0); Immature Granulocytes Abs Auto 0.05 K/uL (0.00-0.30); Immature Granulocytes Pct Auto 0.5 %; Lymphocytes Percent Auto 17.4 % (20-44); Mean Corpuscular HGB Conc 34 gm/dL (32-36); Mean Corpuscular Hemoglobin 29 pg (26-34); Mean Corpuscular Volume 84 fL (80-100); Monocytes Percent Auto 12.9 % (0.0-11.0); Neutrophils Absolute Auto 5.91 K/uL (1.7-7.0); Neutrophils Percent Auto 64.5 % (42.0-72.0); Platelet Count* 190 K/uL (140-440); RDW Coefficient of Variation % 14.1 % (11.5-15.5); Red Blood Count 5.27 m/uL (4.30-5.90); White Blood Count* 9.18 K/uL (4.50-11.00)
[2024-05-13 14:57] LABS: Lactate* 2.7 mmol/L (0.5-1.9); Slide Review Reflex No
[2024-05-13 15:06] LABS: Appearance Urine Clear (Clear); Bilirubin Urine Negative (Negative); Blood Urine 2+ (Negative); Color Urine Yellow (Yellow); Glucose Urine 2+ (Negative); Ketones Urine Negative (Negative); Leukocyte Esterase Urine 1+ (Negative); Nitrite Urine Negative (Negative); Protein Urine 2+ (Negative); Urobilinogen Urine 0.2 (0.2-1.0); pH Urine 5.5 (5.0-8.5)
[2024-05-13 15:11] LABS: Albumin* 4.9 g/dL (3.3-5.0); Chloride* 102 mmol/L (96-114); Sodium* 133 mmol/L (135-149)
[2024-05-13 15:12] LABS: Potassium* 4.7 mmol/L (3.6-5.1)
[2024-05-13 15:14] LABS: Creatinine* 0.9 mg/dL (0.5-1.5); Est. Creatinine Clearance* 67.94; Estimated Glomerular Filt Rate 94 ml/min
[2024-05-13 15:15] LABS: Alanine Aminotransferase* 35 U/L (4-50); Alkaline Phosphatase* 96 U/L (40-150); Anion Gap 12 mEq/L (7-15); Aspartate Amino Transferase* 31 U/L (12-35); Bilirubin Direct* 0.3 mg/dL (0.0-0.5); Bilirubin Total* 0.5 mg/dL (0.1-1.5); Blood Urea Nitrogen* 23 mg/dL (7-30); Calcium* 10.2 mg/dL (8.4-10.6); Carbon Dioxide* 19 mmol/L (20-32); Lipase* 145 U/L (23-300); Total Protein* 8.1 g/dL (6.0-8.3)
[2024-05-13 15:18] LABS: C Reactive Protein* 0.8 mg/dL (0.5-1.0)
[2024-05-13 15:20] VITALS: BP 144/74; PULSE 79; RESP 16; O2SAT 94
[2024-05-13] MEDS: 0.9 % SODIUM CHLORIDE 1000 ml 1,000 ML IV (15:20)
[2024-05-13 15:21] LABS: Glucose* 396 mg/dL (60-115)
[2024-05-13 15:29] LABS: NT Pro B Type NatriureticPept* 95 pg/mL
[2024-05-13] MEDS: INSULIN REGULAR, HUMAN 100 UNIT/ML VIAL 10 UNIT IVP (15:30)
[2024-05-13 15:32] VITALS: BP 145/70; PULSE 74; RESP 16; O2SAT 94
[2024-05-13 15:33] LABS: Bacteria Urine Few; Squamous Epithelial Cell Urine Few (None-Few)
[2024-05-13 16:02] VITALS: BP 126/93; PULSE 80; RESP 12; O2SAT 94
[2024-05-13 16:32] VITALS: BP 152/76; PULSE 79; RESP 15; O2SAT 95
[2024-05-13 17:08] LABS: Glucose, Point-of-Care* 256 mg/dl (60-115)
[2024-05-13 17:53] VITALS: BP 123/84; PULSE 85; RESP 15; TEMP 36.3
== END 2024-05-13 17:53 | disposition home or self-care (01) ==
PROVIDERS: Emergency Provider Family Medicine; PCP Family Medicine
DX: R14.0 Abdominal distension (gaseous) (principal); R19.7 Diarrhea, unspecified; E11.65 Type 2 diabetes mellitus with hyperglycemia
CPT/HCPCS: 36415; 74019; 80048; 80076; 81001; 82947; 83605; 83690; 83880; 85025; 86140; 87086; 87186; 99284; J7030

== ENCOUNTER 2024-05-19 12:47 | Outpatient (CLI) | payer MEDICARE, SELFPAY ==
--- OUTSIDE RECORDS SUMMARY | 2024-05-19 12:59 | XMS_ITS | Clinical Summary ---
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 9 Each 3 3 Active Dexcom G7 Inspector Balance Wheel Motion for continuous blood glucose monitor (CGM)Indications:U ncontrolled type 2 diabetes mellitus with hyperglycemia (HC) To be used to read blood sugars follow marine cargo specialist directions. 1 Each 3 Active acetaminophen (TYLENOL [...] once daily. 36 mL 4 Active Insulin [place], Disposable, (Novofine 32) 32 gauge x 1/4 [...] of insulin 01/17/2024 Ascending aorta dilation 07/02/2023 Overview (07/02/2023): US June 2023: 2.8 cm. Repeat imaging 5 years. Obesity, morbid 03/07/2023 Anticoagulation monitoring, INR range 2-3 2019 Right atrial thrombus 10/08/2019 Edema of lower extremity 11/21/2018 Fatigue 11/21/2018 Cardiomyopathy 07/10/2018 H/O bacterial endocarditis 06/21/2018 Adenomatous colon polyp 01/01/2018 Overview (01/01/2018): Colonoscopy 12/2017 polyps, repeat in 3 years Polyp of colon 12/31/2017 Melena 12/10/2017 Hypertensive urgency 10/16/2017 Mixed hyperlipidemia 03/19/2017 Patent foramen ovale 10/09/2016 Hypertension 03/30/2016 Sleep apnea 03/30/2016 Diabetes mellitus, type 2 03/03/2011 Overview (10/08/2019): Overview: Diabetes mellitus type II Resolved Problems Problem Noted Date Diagnosed Date Resolved Date Acute bacterial endocarditis 06/26/2019 12/05/2023 Anticoagulant long-term use 07/01/2018 08/07/2023 Obesity 03/19/2017 08/07/2023 Encounters Date Type Department Care Team Description 05/13/[address] [address] Pcp, No Anticoagulation (INR OVERDUE REMINDER #4 ) 05/02/[address] [address] Opal Richards, DO Medication Problem (warfarin ) 05/02/[address] [address] Radha Prieto MD Refill Request (Amlodipine) 04/28/[address] [address] Opal Richards, Anticoagulation (INR OVERDUE REMINDER #3 ) 04/22/[address] [address] Opal Richards, DO Appointment 04/19/2024 Refill [facility] [address] [place] [address] Opal Richards, Refill Request (Metformin) 04/18/2024 Refill [facility] [address] [place] [address] Radha Prieto MD Refill Request (Hydrochlorothiazide) 04/14/2024 Telephone [facility] [address] [place] [address] Opal Richards DO Anticoagulation (OVERDUE #2 Reminder) 03/17/2024 Telephone [facility] [address] [place] [address] Rony Larson MD Medication Management (Abx) 03/06/2024 Telephone [facility] [address] [place] [address] Opal Richards DO Medication Management (rosuvastatin (CRESTOR) 20 mg tablet) 03/06/2024 Telephone [facility] [address] [place] [address] Opal Richards DO Results 03/05/2024 10:50 AM CDT Office Visit [facility] [address] [place] [address] Opal Richards DO Diabetes (Follow up ) 03/05/2024 Anticoagulation (warfarin) [facility] [address] [place] [address] 1, [facility] Anticoagulation 03/05/2024 Travel 02/26/2024 10:45 AM CDT Office Visit [facility] [address] [place] [address] Rony Larson MD Hospital F/U 02/26/2024 8:20 AM CDT Orders Only [facility] [address] [place] [address] Only, [facility] 02/26/2024 Travel 02/25/2024 Telephone [facility] [address] [place] [address] Opal Richards DO Anticoagulation (INR result) 02/21/2024 Telephone [facility] [address] [place] [address] Opal Richards, DO Results 02/21/2024 Telephone [facility] [address] [facility] [place] [address] Jonathan Salazar MD Abnormal Lab Results 02/20/2024 2:00 PM CDT Office Visit [facility] [address] [place] [address] Opal Richards, DO Follow Up (Has been to the ER several times this month. Is on antibiotics for both MRSA and E.Coli) 02/20/2024 Telephone [facility] [address] [place] [address] [facility] Cancer Referral (/Abnormal prostate biopsy [R89.7]/Lymphoma, unspecified body region, unspecified lymphoma type (HC) [C85.90]//) 02/20/2024 Travel from Last 3 Months Immunizations Name [...] 02/20/2024 2:51 PM CDT Low serum sodium US ABD AORTA SCREENING Routine 07/02/2023 9:12 [...] - 145 mmol/L 03/06/2024 12:51 AM CDT [facility] Blood BLOOD SPECIMEN / Unknown Venipuncture / Unknown 03/05/2024 11:55 AM CDT 03/05/2024 11:58 AM CDT Opal Richards DO CHEMISTRY Performing Organization Address City/[facility] Co de Phone Number [facility] [address] [place] [address], [place] * POTASSIUM (03/05/2024 11:55 AM CDT) Only the most recent of2 resultswithin the time period is included. POTASSIUM 4.8 3.5 - 5.1 mmol/L 03/06/2024 12:51 AM CDT [facility] Blood BLOOD SPECIMEN / Unknown Venipuncture / Unknown 03/05/2024 11:55 AM CDT 03/05/2024 11:58 AM CDT Opal Richards DO CHEMISTRY Performing Organization Address [facility] Phone Number [facility] [address] [place] [address], [place] * (ABNORMAL) CREATININE (03/05/2024 11:55 AM CDT) Only the most recent of2 resultswithin the time period is included. eGFR 71(L) >90 mL/min/1.7 3m2 03/06/2024 12:51 AM CDT [facility] Comment:As of 2021, eG FR is calculated by the CKD-EPI creatinine equation without race adjustment. ??eGFR can be influenced by muscle mass, exercise, and diet. ??The reported eGFR is an estimation only and is only applicable if the renal function is stable. CREATININE 1.14 0.70 - 1.20 mg/dL 03/06/2024 12:51 AM CDT [facility] Blood BLOOD SPECIMEN / Unknown Venipuncture / Unknown 03/05/2024 11:55 AM CDT 03/05/2024 11:58 AM CDT Opal Richards DO CHEMISTRY Performing Organization Address [facility]/State/ZIP Co de Phone Number [facility] [address] [address], * (ABNORMAL) PROTIME-INR (03/05/2024 11:55 AM CDT) Only the most recent of2 resultswithin the time period is included. Pathologist [facility] INR 1.7(H) <1.3 03/05/2024 4:05 PM CDT [facility] PROTIME 19.2(H) 10.3 - 12.3 sec 03/05/2024 4:05 PM CDT [facility] Blood BLOOD SPECIMEN / Unknown Venipuncture / Unknown 03/05/2024 11:55 AM CDT 03/05/2024 11:58 AM CDT Narrative [facility] - 03/05/2024 4:05 PM CDT ?Therapeutic Range [...] is on UFH. Opal Richards DO HEMATOLOGY [facility] [address] [address], * (ABNORMAL) CBC WITH AUTO DIFFERENTIAL (02/20/2024 2:51 PM CDT) Pathologist [facility] WHITE BLOOD COUNT 10.7 4.5 - 11.0 thou/cu mm 02/20/2024 3:39 PM CDT [facility] RED BLOOD COUNT 4.04(L) 4.30 - 5.90 mil/cu mm 02/20/2024 3:39 PM CDT [facility] HEMOGLOBIN 11.6(L) 13.5 - 17.5 g/dL 02/20/2024 3:39 PM CDT [facility] HEMATOCRIT 33.1(L) 37.0 - 53.0 % 02/20/2024 3:39 PM CDT [facility] MCV 82 80 - 100 fL 02/20/2024 3:39 PM CDT [facility] MCH 28.7 26.0 - 34.0 pg 02/20/2024 3:39 PM CDT [facility] MCHC 35.0 32.0 - 36.0 g/dL 02/20/2024 3:39 PM CDT [facility] RDW 14.5 11.5 - 15.5 % 02/20/2024 3:39 PM CDT [facility] PLATELET COUNT 238 140 - 440 thou/cu mm 02/20/2024 3:39 PM CDT [facility] MPV 10.5 6.5 - 11.0 fL 02/20/2024 3:39 PM CDT [facility] Blood BLOOD SPECIMEN / Unknown Venipuncture / Unknown 02/20/2024 2:51 PM CDT 02/20/2024 2:51 PM CDT Opal Richards DO HEMATOLOGY [facility] [address] [place] [address], [place] [phone] * RED CELL MORPHOLOGY (02/20/2024 2:51 PM CDT) RBC COMMENT RBC morphology appears normal RBC morphology appears normal, RBC morphology within normal limits for newborns. 02/20/2024 3:38 PM CDT [facility] Blood BLOOD SPECIMEN / Unknown Venipuncture / Unknown 02/20/2024 2:51 PM CDT 02/20/2024 2:51 PM CDT Opal Richards DO HEMATOLOGY Performing Organization Address City/[facility]/ZIP Co de Phone Number [facility] [address] [place] [address], [place] [phone] * PLATELET ESTIMATE (02/20/2024 2:51 PM CDT) PLATELET ESTIMATE Adequate Adequate, No estimate 02/20/2024 3:38 PM CDT [facility] Blood BLOOD SPECIMEN / Unknown Venipuncture / Unknown 02/20/2024 2:51 PM CDT 02/20/2024 2:51 PM CDT Opal Richards DO HEMATOLOGY [facility] [address] [place] [address], * (ABNORMAL) MANUAL DIFFERENTIAL (02/20/2024 2:51 PM CDT) % NEUTROPHILS 70.0 % 02/20/2024 3:38 PM CDT [facility] % LYMPHOCYTES 18.0 % 02/20/2024 3:38 PM CDT [facility] % MONOCYTES 9.0 % 02/20/2024 3:38 PM CDT [facility] % EOSINOPHILS 3.0 % 02/20/2024 3:38 PM CDT [facility] % BASOPHILS 0.0 % 02/20/2024 3:38 PM CDT [facility] NEUTROPHILS ABSOLUTE 7.5(H) 1.7 - 7.0 thou/cu mm 02/20/2024 3:38 PM CDT [facility] LYMPHOCYTES ABSOLUTE 1.9 0.9 - 2.9 thou/cu mm 02/20/2024 3:38 PM CDT [facility] MONOCYTES ABSOLUTE 1.0(H) <0.9 thou/cu mm 02/20/2024 3:38 PM CDT [facility] EOSINOPHILS ABSOLUTE 0.3 <0.5 thou/cu mm 02/20/2024 3:38 PM CDT [facility] BASOPHILS ABSOLUTE 0.0 <0.3 thou/cu mm 02/20/2024 3:38 PM CDT [facility] Blood BLOOD SPECIMEN / Unknown Venipuncture / Unknown 02/20/2024 2:51 PM CDT 02/20/2024 2:51 PM CDT Opalevin Tavera Maurice MARROQUIN HEMATOLOGY [facility] [place] [address], * (ABNORMAL) BASIC METABOLIC PANEL (02/20/2024 2:51 PM CDT) SODIUM 131(L) 136 - 145 mmol/L 02/20/2024 11:58 PM CDT [facility] POTASSIUM 3.5 3.5 - 5.1 mmol/L 02/20/2024 11:58 PM CDT [facility] CHLORIDE 88(L) 98 - 107 mmol/L 02/20/2024 11:58 PM CDT [facility] CO2,TOTAL 25 22 - 29 mmol/L 02/20/2024 11:58 PM CDT [facility] ANION GAP 18 5 - 18 02/20/2024 11:58 PM CDT [facility] GLUCOSE 511(HH) 70 - 99 mg/dL 02/20/2024 11:58 PM CDT [facility] CALCIUM 9.6 8.8 - 10.2 mg/dL 02/20/2024 11:58 PM CDT [facility] BUN 46(H) 8 - 23 mg/dL 02/20/2024 11:58 PM T [facility] CREATININE 2.03(H) 0.70 - 1.20 mg/dL 02/20/2024 11:58 PM CDT [facility] BUN/CREAT RATIO 23(H) 10 - 20 11:58 PM T [facility] eGFR 35(L) >90 mL/min/1.7 3m2 02/20/2024 11:58 PM CDT [facility] Comment:As of 2021, eG FR is calculated by the CKD-EPI creatinine equation without race adjustment. ??eGFR can be influenced by muscle mass, exercise, and diet. ??The reported eGFR is an estimation only and is only applicable if the renal function is stable. Blood BLOOD SPECIMEN / Unknown Venipuncture / Unknown 02/20/2024 2:51 PM CDT 02/20/2024 2:51 PM CDT Opal Lawsonxler DO CHEMISTRY [facility] [address] [place] [address], [place] * US ABD AORTA SCREENING [[id number]] (07/02/2023 9:12 AM CDT) Anatomical Region Laterality [...] W REFLEX MEASURED LDL (06/19/2023 11:13 AM T) CHOLESTEROL,TOTAL 159 100 - 199 mg/dL 06/20/2023 7:00 AM [facility] Comment: Cholesterol, Total Reference Ranges Desirable <200 mg/dL Borderline 200-239 mg/dL High >=240 mg/dL TRIGLYCERIDES 530(H) <150 mg/dL 06/20/2023 7:00 AM [facility] HDL CHOLESTEROL 30(L) >40 mg/dL 3 7:00 AM [facility] NON-HDL CHOLESTEROL 129 <145 mg/dl 06/20/2023 7:00 AM [facility] CHOL/HDL RATIO 5.30(H) <4.50 06/20/2023 7:00 AM [facility] LDL CHOLESTEROL 3 7:00 AM [facility] Comment:Invalid LDL when Tri g >400. VLDL CHOLESTEROL COMMENT 06/20/2023 7:00 AM [facility] Comment:Unable to calculate VLDL. PROVIDER ORDERED STATUS RANDOM 06/20/2023 7:00 AM [facility] Blood BLOOD SPECIMEN / Unknown Venipuncture / Unknown 06/19/2023 11:13 AM CDT 06/19/2023 11:15 AM CDT Opal Richards DO CHEMISTRY [facility] [address] [place] [address], * ANTI HCV (02/27/2020 2:02 PM CDT) HEPATITIS C ANTIBODY Non-React gennaro Non-React gennaro 02/27/2020 8:36 PM CDT [facility] Comment:Antibodies to HCV no t detected; does not exclude the possibility of exposure to HCV. Blood BLOOD SPECIMEN / Unknown Butterfly / Unknown 02/27/2020 2:02 PM CDT 02/27/2020 2:03 PM CDT Radha Prieto MD SEND OUTS Performing Organization Address City/[facility]/ZIP Co de Phone Number [facility] [address] [place] [address], * SCAN-COLONOSCOPY (12/31/2017 12:00 AM CDT) Scanner [...]
== END 2024-05-19 12:48 | disposition home or self-care (01) ==
LOC: NFLDREF 12:57
PROVIDERS: PCP Registered Nurse; Visit Provider Registered Nurse
DX: E11.9 Type 2 diabetes mellitus without complications (principal); R73.9 Hyperglycemia, unspecified; I10 Essential (primary) hypertension; E87.5 Hyperkalemia; N39.0 Urinary tract infection, site not specified; Z79.01 Long term (current) use of anticoagulants
CPT/HCPCS: 82043; 82570

== ENCOUNTER 2024-07-01 10:37 | Outpatient (CLI) | payer MEDICARE, SELFPAY ==
--- NOTE | 2024-07-01 10:45 | CRLHL7_ITS ---
For Patients: As a result of the Century Cures Act, medical imaging exams and procedure reports are released immediately into your electronic medical record. You may view this report before your referring provider. If you have questions, please contact your health care provider. INDICATION: Gaseous abdominal distention. TECHNIQUE: Complete abdomen ultrasound. COMPARISON: Correlation is made with a contrast-enhanced CT of the abdomen and pelvis September 04, 2023. Correlation is made with plain radiographs of the abdomen and pelvis May 13, 2024. FINDINGS: Enlarged echogenic liver compatible with diffuse hepatic fatty infiltration. There are numerous hepatic cysts better appreciated on the prior CT. No solid hepatic mass. No intrahepatic biliary ductal dilatation. Cholelithiasis. The gallbladder wall measures 3 mm. The common bile duct measures 4 mm. The buyer agent`s worksheet suggested a positive sonographic August`s sign. However there is no evidence for elan cholecystic fluid or biliary dilatation. Clinical and laboratory correlation recommended. No upper abdominal ascites. Suboptimal visualization of the pancreas secondary to bowel gas. No hydronephrosis or splenomegaly. The right kidney measures 13.0 x 5.1 x 5.7 cm and the left kidney measures 12.4 x 6.1 x 5.3 cm. The right renal cortex measures 1.5 cm and the left renal cortex 2.2 cm. The spleen measures 6.4 x 13.1 cm. The visualized proximal abdominal aorta and IVC are normal. IMPRESSION: 1. Enlarged liver with hepatic fatty infiltration and hepatic cysts. No biliary ductal dilatation. 2. Cholelithiasis without ultrasound evidence for acute cholecystitis. Given the fact that the buyer agent`s worksheet states that the sonographic August`s sign was positive, further clinical evaluation and perhaps laboratory evaluation is strongly recommended. 3. No hydronephrosis or splenomegaly. Dictated by Alex Dia MD @ 07/02/2024 3:58:08 PM (Electronically Signed)
--- OUTSIDE RECORDS SUMMARY | 2024-07-01 10:45 | XMS_ITS | Clinical Summary ---
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 90 capsule 3 10/08/19 20 Active Microlet LancetIndications: Uncontrolled type 2 diabetes mellitus with hyperglycemia (HC) USE TO TEST BLOOD GLUCOSE FOUR TIMES A DAY 400 Each 3 06/09/20 22 Active blood-glucose meterIndications:U ncontrolled type 2 diabetes mellitus with hyperglycemia (HC) As directed. Dispense meter, test strips, lancets covered by pt ins. E11.65 NIDDM type II, uncontrolled - Test 4 times/day. Reason: High A1C 1 Each 03/07/20 23 Active lisinopriL (PRINIVIL; ZESTRIL) 40 mg tabletIndications: Hypertension Take 1 Tablet (40 mg) by mouth once daily. 90 Tablet 3 03/07/20 23 Active potassium chloride (K-TAB) 20 mEq extended-release tabletIndications: Hypokalemia Take 1 Tablet (20 mEq) by mouth once daily with a meal. 90 Tablet 3 03/07/20 23 Active spironolactone (ALDACTONE) 50 mg tabletIndications: [...] be used to read blood sugars, follow cage loader directions. 9 Each 3 06/21/20 Active Dexcom G7 Dust Box Tender for continuous blood glucose monitor (CGM)Indications:U ncontrolled type 2 diabetes mellitus with hyperglycemia (HC) To be used to read blood sugars follow cage loader directions. 1 Each 06/21/20 23 Active acetaminophen (TYLENOL EXTRA STRGTH) 500 mg tablet Take 500-1,000 mg by mouth every 6 hours if needed for Pain. Max acetaminophen dose: 4000mg in 24 hrs. 0 07/19/20 23 Active liraglutide (VICTOZA) 0.6 mg/0.1 mL (18 mg/3 mL) subcutaneous pen Inject 1.8 mg subcutaneous once daily. 36 mL 10/25/19 24 Active Insulin Niotaze, Disposable, (Novofine 32) 32 gauge x 1/4 To be used once daily with Victoza 200 Each 2 10/25/19 24 Active ferrous sulfate 325 mg delayed release tabletIndications: Iron deficiency anemia, unspecified iron deficiency anemia type Take 1 Tablet (325 mg) by mouth once daily with a meal. 90 Tablet 01/04/20 24 Active multivitamins-mine rals-lutein (Multivitamin 50 Plus) [...] once daily. 30 Tablet 01/25/20 24 Active Lantus Solostar U-100 Insulin 100 unit/mL (3 mL) penIndications:Unc ontrolled type 2 diabetes mellitus with hyperglycemia (HC) Inject 88 units subcutaneous before bedtime. 90 mL 02/27/20 24 Active Diaper,Brief, Adult,DisposableIn dications:Urinary incontinence, unspecified type For home use. Size XL. 100 Each 03/05/20 24 Active warfarin (COUMADIN) 3 mg tabletIndications: Right atrial thrombus,Patent foramen ovale,Anticoagulat ion monitoring, INR range 2-3,Anticoagulant long-term use Take by mouth 3 mg (3 mg x 1) every Sun; 6 mg (3 mg x 2) all other day in the evening OR as directed 03/06/20 24 Active metFORMIN (GLUCOPHAGE XR) 500 mg Extended-Release tabletIndications: Uncontrolled type 2 diabetes mellitus with hyperglycemia (HC) TAKE TWO TABLETS (1,000 MG) BY MOUTH TWICE A DAY WITH MEALS . 360 Tablet 04/22/20 24 Active amLODIPine (NORVASC) 10 mg tabletIndications: Hypertension TAKE ONE TABLET BY MOUTH EVERY DAY 90 Tablet 05/05/20 24 Active rosuvastatin (CRESTOR) 20 mg tabletIndications: Hyperlipidemia, unspecified hyperlipidemia type TAKE ONE TABLET BY MOUTH AT BEDTIME 90 Tablet 06/19/20 24 Active metoprolol tartrate (LOPRESSOR) 100 mg tabletIndications: Hypertension Take 1 Tablet (100 mg) by mouth two times daily. 180 Tablet 1 06/29/20 24 Active rosuvastatin (CRESTOR) 20 mg tabletIndications: Hyperlipidemia, unspecified hyperlipidemia type Take 1 Tablet (20 mg) by mouth at bedtime. 90 Tablet 2 08/10/20 23 024 Discontinued metoprolol tartrate (LOPRESSOR) 100 mg tabletIndications: Hypertension Take 1 Tablet (100 mg) by mouth two times daily. 180 Tablet 2 09/13/19 24 024 Discontinued(Re order (E-cancel not sent)) Active Problems Problem Noted Date Diagnosed Date Prostate abscess 01/17/2024 Type 2 diabetes mellitus wit h stage 2 chronic kidney disease, with long-term current use of insulin 01/17/2024 Ascending aorta dilation 07/02/2023 Overview (07/02/2023): US June 2023: 2.8 cm. Repeat imaging 5 years. Obesity, morbid 03/07/2023 Right atrial thrombus 10/08/2019 Edema of lower [...] Problem Noted Date Diagnosed Date Resolved Date Anticoagulation monitoring, INR range 2-3 10/09/2019 05/27/2024 Acute bacterial endocarditis 06/26/2019 12/05/2023 Anticoagulant long-term use 07/01/2018 08/07/2023 Obesity 03/19/2017 08/07/2023 Encounters Date Type Department Care Team Description 06/26/2024 Refill [facility] [address] [place] [address] Opal Richards, DO Refill Request (Lopressor) 06/14/2024 Refill [facility] [address] [place] [address] Radha Prieto MD Refill Request (Rosuvastatin) 05/27/2024 Telephone [facility] [address] [place] [address] Clinic, No Pcp Or Anticoagulation (CHART UPDATE/REVIEW FOR TRANSFER OF CARE ) 05/13/2024 Telephone [facility] [address] [place] [address] Pcp, No Anticoagulation (INR OVERDUE REMINDER #4 ) 05/02/2024 Telephone [facility] [address] [place] [address] Opal Richards, DO Medication Problem (warfarin ) 05/02/2024 Refill [facility] [address] [place] [address] Radha Prieto MD Refill Request (Amlodipine) 04/28/2024 Telephone [facility] [address] [place] [address] Opal Richards, DO Anticoagulation (INR OVERDUE REMINDER #3 ) 04/22/2024 Telephone [facility] [address] [place] [address] Opal Richards, DO Appointment 04/19/2024 Refill [facility] [address] [place] [address] Opal Richards, Refill Request (Metformin) 04/18/2024 Refill [facility] [address] [place] [address] Radha Prieto MD Refill Request (Hydrochlorothiazide) 04/14/2024 Telephone [facility] [address] [place] [address] Opal Richards, DO Anticoagulation (OVERDUE #2 Reminder) from Last 3 Months Immunizations Name Administration [...] Procedure Name Priority Date/Time Associated Diagnosis Comments US ABD AORTA SCREENING Routine 07/02/2023 9:12 [...] Recently Relevant to Health Maintenance Results * US ABD AORTA SCREENING [[id number]] (07/02/2023 9:12 AM CDT) Anatomical Region Laterality [...] - 199 mg/dL 06/20/2023 7:00 AM CDT [facility] Comment: Cholesterol, Total Reference Ranges Desirable <200 mg/dL Borderline 200-239 mg/dL High >=240 mg/dL TRIGLYCERIDES 530(H) <150 mg/dL 06/20/2023 7:00 AM CDT [facility] HDL CHOLESTEROL 30(L) >40 mg/dL 7:00 AM CDT [facility] NON-HDL CHOLESTEROL 129 <145 mg/dl 06/20/2023 7:00 AM CDT [facility] CHOL/HDL RATIO 5.30(H) <4.50 06/20/2023 7:00 AM CDT [facility] LDL CHOLESTEROL 7:00 AM CDT [facility] Comment:Invalid LDL when Tri g >400. VLDL CHOLESTEROL COMMENT 06/20/2023 7:00 AM CDT [facility] Comment:Unable to calculate VLDL. PROVIDER ORDERED STATUS RANDOM 06/20/2023 7:00 AM CDT [facility] Blood BLOOD SPECIMEN / Unknown Venipuncture / Unknown 06/19/2023 11:13 AM CDT 06/19/2023 11:15 AM CDT Opal Richards DO CHEMISTRY [facility] [address] [place] [address], * ANTI HCV (02/27/2020 2:02 PM CDT) HEPATITIS C ANTIBODY Non-React gennaro Non-React gennaro 02/27/2020 8:36 PM CDT [facility] Comment:Antibodies to HCV no t detected; does not exclude the possibility of exposure to HCV. Blood BLOOD SPECIMEN / Unknown Butterfly / Unknown 02/27/2020 2:02 PM CDT 02/27/2020 2:03 PM CDT Radha Prieto MD SEND OUTS [facility] [address] [place] [address], [place] * SCAN-COLONOSCOPY (12/31/2017 12:00 AM CDT) [...] 12 months since positive culture): resides in acute/penitentiary care, receiving hemodialysis, has chronic open wounds/skin [...]
== END 2024-07-01 10:38 | disposition home or self-care (01) ==
LOC: US 10:38
PROVIDERS: PCP Internal Medicine; Visit Provider Internal Medicine
DX: R14.0 Abdominal distension (gaseous) (principal); K76.0 Fatty (change of) liver, not elsewhere classified; K76.89 Other specified diseases of liver; K80.20 Calculus of gallbladder without cholecystitis without obstruction
CPT/HCPCS: 76700

== ENCOUNTER 2024-07-08 10:10 | Outpatient (CLI) | payer MEDICARE, SELFPAY ==
--- OUTSIDE RECORDS SUMMARY | 2024-07-08 10:13 | XMS_ITS | Clinical Summary ---
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 9 Each 3 06/21/20 Active Dexcom G7 Prime Broker for continuous blood glucose monitor (CGM)Indications:U ncontrolled type 2 diabetes mellitus with hyperglycemia (HC) To be used to read blood sugars follow audio video tech directions. 1 Each 06/21/20 23 Active acetaminophen (TYLENOL EXTRA STRGTH) 500 mg tablet Take 500-1,000 mg by mouth every 6 hours if needed for Pain. Max acetaminophen dose: 4000mg in 24 hrs. 0 07/19/20 23 Active liraglutide (VICTOZA) 0.6 mg/0.1 mL (18 mg/3 mL) subcutaneous pen Inject 1.8 mg subcutaneous once daily. 36 mL 10/25/19 24 Active Insulin [place], Disposable, (Novofine 32) 32 gauge x 1/4 [...] Type Department Care Team Description 06/26/2024 Refill [facility] [address] [place] [address] Oapl Richards, DO Refill Request (Lopressor) 06/14/2024 Refill [facility] [address] [place] [address] Radha Prieto MD Refill Request (Rosuvastatin) 05/27/2024 Telephone [facility] [address] [place] [address] Clinic, No Pcp Or Anticoagulation (CHART UPDATE/REVIEW FOR TRANSFER OF CARE ) 05/13/2024 Telephone [facility] [address] [place] [address] Pcp, No Anticoagulation (INR OVERDUE REMINDER #4 ) 05/02/2024 Telephone [facility] [address] [place] [address] Opal Richards, DO Medication Problem (warfarin ) 05/02/2024 Refill [facility] [address] [place] [address] Radha Prieto MD Refill Request (Amlodipine) 04/28/2024 Telephone [facility] [address] [place] [address] Opal Richards, DO Anticoagulation (INR OVERDUE REMINDER #3 ) 04/22/2024 Telephone [facility] [address] [place] [address] Opal Richards, DO Appointment 04/19/2024 Refill [facility] [address] [place] [address] Opal Richards, Refill Request (Metformin) 04/18/2024 Refill [facility] [address] [place] [address] Radha Prieto MD Refill Request (Hydrochlorothiazide) 04/14/2024 Telephone [facility] [address] [place] [address] Opal Richards, DO Anticoagulation (OVERDUE #2 Reminder) [...] Maintenance Results * US ABD AORTA SCREENING [[id number]] (07/02/2023 9:12 AM CDT) Anatomical Region Laterality [...] - 199 mg/dL 06/20/2023 7:00 AM CDT [facility] Comment: Cholesterol, Total Reference Ranges Desirable <200 mg/dL Borderline 200-239 mg/dL High >=240 mg/dL TRIGLYCERIDES 530(H) <150 mg/dL 06/20/2023 7:00 AM CDT [facility] HDL CHOLESTEROL 30(L) >40 mg/dL 7:00 AM CDT [facility] NON-HDL CHOLESTEROL 129 <145 mg/dl 06/20/2023 7:00 AM CDT [facility] CHOL/HDL RATIO 5.30(H) <4.50 06/20/2023 7:00 AM CDT [facility] LDL CHOLESTEROL 7:00 AM CDT [facility] Comment:Invalid LDL when Tri g >400. VLDL CHOLESTEROL COMMENT 06/20/2023 7:00 AM CDT [facility] Comment:Unable to calculate VLDL. PROVIDER ORDERED STATUS RANDOM 06/20/2023 7:00 AM CDT [facility] Blood BLOOD SPECIMEN / Unknown Venipuncture / Unknown 06/19/2023 11:13 AM CDT 06/19/2023 11:15 AM CDT Opal Richards DO CHEMISTRY [facility] [address] [place] [address], * ANTI HCV (02/27/2020 2:02 PM CDT) HEPATITIS C ANTIBODY Non-React gennaro Non-React gennaro 02/27/2020 8:36 PM CDT [facility] Comment:Antibodies to HCV no t detected; does not exclude the possibility of exposure to HCV. Blood BLOOD SPECIMEN / Unknown Butterfly / Unknown 02/27/2020 2:02 PM CDT 02/27/2020 2:03 PM CDT Radha Prieto MD SEND OUTS [facility] [address] [place] [address], [place] * SCAN-COLONOSCOPY (12/31/2017 12:00 AM CDT) [...] 12 months since positive culture): resides in acute/retirement care, receiving hemodialysis, has chronic open wounds/skin [...]
== END 2024-07-08 10:11 | disposition home or self-care (01) ==
PROVIDERS: PCP Internal Medicine; Visit Provider Internal Medicine
DX: R10.9 Unspecified abdominal pain (principal)
CPT/HCPCS: 80053

== ENCOUNTER 2024-07-22 11:37 | Outpatient (CLI) | payer MEDICARE, SELFPAY ==
--- OUTSIDE RECORDS SUMMARY | 2024-07-22 11:40 | XMS_ITS | Clinical Summary ---
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 90 capsule 3 0 Active Microlet LancetIndications:U ncontrolled type 2 diabetes mellitus with hyperglycemia (HC) USE TO TEST BLOOD GLUCOSE FOUR TIMES A DAY 400 Each 3 2 Active blood-glucose meterIndications:Un controlled type 2 diabetes [...] be used to read blood sugars, follow spun paste machine operator directions. 9 Each 3 3 Active Dexcom G7 Die Maker Trim for continuous blood glucose monitor (CGM)Indications:Un controlled type 2 diabetes mellitus with hyperglycemia (HC) To be used to read blood sugars follow spun paste machine operator directions. 1 Each 3 Active acetaminophen (TYLENOL EXTRA STRGTH) 500 mg tablet Take 500-1,000 mg by mouth every 6 hours if needed for Pain. Max acetaminophen dose: 4000mg in 24 hrs. 0 3 Active liraglutide (VICTOZA) 0.6 mg/0.1 mL (18 mg/3 mL) subcutaneous pen Inject 1.8 mg subcutaneous once daily. 36 mL 4 Active Insulin [place], Disposable, (Novofine 32) 32 gauge x 1/4 To be used once daily with Victoza 200 Each 2 4 Active ferrous sulfate 325 mg delayed release tabletIndications:I lillie deficiency anemia, unspecified iron deficiency anemia type Take 1 Tablet (325 mg) by mouth once daily with a meal. 90 Tablet 4 Active multivitamins-lightout examiner als-lutein (Multivitamin 50 Plus) tab tablet Take [...] Tablet 4 Active amLODIPine (NORVASC) 10 mg tabletIndications:H ypertension TAKE ONE TABLET BY MOUTH EVERY DAY 90 Tablet 4 Active rosuvastatin (CRESTOR) 20 mg tabletIndications:H yperlipidemia, unspecified hyperlipidemia type TAKE ONE TABLET BY MOUTH AT BEDTIME 90 Tablet 4 Active metoprolol tartrate (LOPRESSOR) 100 mg tabletIndications:H ypertension Take 1 Tablet (100 mg) by mouth two times daily. 180 Tablet 1 4 Active metoprolol tartrate (LOPRESSOR) 100 mg tabletIndications:H ypertension Take 1 Tablet (100 mg) by mouth two times daily. 180 Tablet 2 4 06/26/20 24 Discontinu ed(Reorder (E-cancel not sent)) Active Problems Problem Noted [...] Encounters Date Type Department Care Team Description 07/17/2024 Refill [facility] [address] [place] [address] Opal Richards, DO Refill Request (metFORMIN (GLUCOPHAGE XR) 500 mg Extended-Release tablet) 07/14/2024 Refill [facility] [address] [place] [address] Opal Richards, DO Refill Request (METFORMIN HCL ER 500MG TB) 07/14/2024 Refill [facility] [address] [place] [address] Opal Richards, DO Refill Request (Metoprolol Tartrate 100mg tabs) 06/26/2024 Refill [facility] [address] [place] [address] Opal Richards, DO Refill Request (Lopressor) 06/14/2024 Refill [facility] [address] [place] [address] Radha Prieto MD Refill Request (Rosuvastatin) 05/27/2024 Telephone [facility] [address] [place] [address] Clinic, No Pcp Or Anticoagulation (CHART UPDATE/REVIEW FOR TRANSFER OF CARE ) 05/13/2024 Telephone [facility] [address] [place] [address] Pcp, No Anticoagulation (INR OVERDUE REMINDER #4 ) 05/02/2024 Telephone [facility] [address] [place] [address] Opal Richards, Medication Problem (warfarin ) 05/02/2024 Refill [facility] [address] [place] [address] Radha Prieto MD Refill Request (Amlodipine) 04/28/2024 Telephone [facility] [address] [place] [address] pOal Richards, Anticoagulation (INR OVERDUE REMINDER #3 ) 04/22/2024 Telephone [facility] [address] [place] [address] Opal Richards, DO Appointment from Last 3 Months Immunizations Name Administration [...] Maintenance Results * US ABD AORTA SCREENING [[id number]] (07/02/2023 9:12 AM CDT) Anatomical Region Laterality Modality Abdomen, AORTA Ultrasound 07/02/2023 10:0 6 AM CDT Narrative 07/02/2023 10:06 AM CDT For Patients: ??As a result of the s Act, medical imaging exams and procedure reports [...] - 199 mg/dL 06/20/2023 7:00 AM CDT [facility] Comment: Cholesterol, Total Reference Ranges Desirable <200 mg/dL Borderline 200-239 mg/dL High >=240 mg/dL TRIGLYCERIDES 530(H) <150 mg/dL 06/20/2023 7:00 AM CDT [facility] HDL CHOLESTEROL 30(L) >40 mg/dL 3 7:00 AM CDT [facility] NON-HDL CHOLESTEROL 129 <145 mg/dl 06/20/2023 7:00 AM T [facility] CHOL/HDL RATIO 5.30(H) <4.50 06/20/2023 7:00 AM CDT [facility] LDL CHOLESTEROL 3 7:00 AM CDT [facility] Comment:Invalid LDL when Tri g >400. VLDL CHOLESTEROL COMMENT 06/20/2023 7:00 AM CDT [facility] Comment:Unable to calculate VLDL. PROVIDER ORDERED STATUS RANDOM 06/20/2023 7:00 AM T [facility] Blood BLOOD SPECIMEN / Unknown Venipuncture / Unknown 06/19/2023 11:13 AM CDT 06/19/2023 11:15 AM CDT Opal Richards DO CHEMISTRY [facility] [address] [place] [address], * ANTI HCV (02/27/2020 2:02 PM CDT) HEPATITIS C ANTIBODY Non-React gennaro Non-React gennaro 02/27/2020 8:36 PM CDT [facility] Comment:Antibodies to HCV no t detected; does not exclude the possibility of exposure to HCV. Blood BLOOD SPECIMEN / Unknown Butterfly / Unknown 02/27/2020 2:02 PM CDT 02/27/2020 2:03 PM CDT Radha Prieto MD SEND OUTS [facility] 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
--- NOTE | 2024-07-22 12:00 | CRLHL7_ITS ---
For Patients: As a result of the Cures Act, medical imaging exams and procedure reports are released immediately into your electronic medical record. You may view this report before your referring provider. If you have questions, please contact your health care provider. Indication: Cholelithiasis. Per technologist the patient has pain today is unchanged/nonacute. Technique: Nuclear medicine hepatobiliary scan with gallbladder ejection fraction after the intravenous administration of 5.4 millicuries technetium 99 M Mebrofenin. 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 Images obtained up to 60 minutes. Comparison: Abdominal ultrasound 07/01/2024 Findings: Normal hepatic extraction and excretion of the radiopharmaceutical with prompt appearance of the common bile duct followed by the small bowel. There is no enterogastric reflux. The gallbladder was not visualized. Impression: Nonvisualization of the gallbladder up to 60 minutes in this patient without acute pain favors false-positive (recent meal vs NPO<18 hours) versus chronic cholecystitis versus much less likely developing/very early acute cholecystitis. Recommend appropriate laboratory correlation and general surgical evaluation. Dictated by Saleem Pereyra MD @ 07/22/2024 3:54:22 PM (Electronically Signed)
== END 2024-07-22 11:38 | disposition home or self-care (01) ==
LOC: NM 11:38
PROVIDERS: PCP Internal Medicine; Visit Provider Internal Medicine
DX: K80.20 Calculus of gallbladder without cholecystitis without obstruction (principal)
CPT/HCPCS: 78226; A9537

== ENCOUNTER 2024-11-12 13:35 | Inpatient (IN) | payer MEDICARE, SELFPAY ==
[2024-11-12] VITALS (30 sets, daily range): BP systolic 111–162; BP diastolic 66–99; PULSE 77–109; RESP 0–37; TEMP 36.3–37.7; O2SAT 88–97; BMI 42.3; BMI 42.4
--- NOTE | 2024-11-12 | CRLHL7_ITS ---
For Patients: As a result of the Century Cures Act, medical imaging exams and procedure reports are released immediately into your electronic medical record. You may view this report before your referring provider. If you have questions, please contact your health care provider. INDICATION: .ABD PAIN, VERY SOB TECHNIQUE: CT chest PE was acquired with 100 cc Omnipaque 350 IV contrast. COMPARISON: None FINDINGS: Pulmonary Arteries: Suboptimal contrast bolus timing acquisition degrades evaluation of the distal segmental and subsegmental pulmonary arteries. No discrete large central or proximal segmental pulmonary embolus. No pulmonary hypertension or right ventricular strain. Heart and Mediastinum: The visualized portions of the thyroid are normal. No axillary or supraclavicular lymphadenopathy. No mediastinal, hilar or retrocrural lymphadenopathy. Normal heart size. Normal caliber aorta. Atherosclerotic and coronary artery calcifications. Lungs and Airways: Calcified granulomas. Scattered linear opacities likely subsegmental atelectasis. No mass or consolidation. No endoluminal lesion. Pleura: The pleural spaces are normal. Abdomen: Refer to abdominal CT of same day. Bones and soft tissues: The skeletal structures and soft tissues of the chest wall are unremarkable. IMPRESSION: 1. Suboptimal contrast bolus timing acquisition degrades evaluation of the distal segmental and subsegmental pulmonary arteries. No discrete large central or proximal segmental pulmonary embolus. 2. No mass or consolidation. Please note that all CT scans at this facility use dose modulation, iterative reconstruction, and/or weight-based dosing when appropriate to reduce radiation dose to as low as reasonably achievable. Dictated by Breezy Valadez MD @ 11/12/2024 6:36:09 PM (Electronically Signed)
--- OUTSIDE RECORDS SUMMARY | 2024-11-12 13:38 | XMS_ITS | Data Portability ---
Author Organization [place] [facility] Address [address] [place] [address] Care Team Providers Care Recreation Program Specialist Name Role Phone [facility] Primary Care Provider Assessment Encounter Date Assessment Date Assessment LastModified by Organization Details LastModified Time 10/03/2024 10/03/2024 69M presents for prostate abscess follow up. Doing well s/p TURP but has some incontinence, abscess cavity extending posterior to sphincter so this was expected. 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 Lab PSA, serum or plasma 2024 025 mmadrigalvaler o [facility], [address], [place], [address], 5 11:11:54 urinal ysis, dipsti ck 2023 024 moize [facility], [address], [place], [address], 4 16:05:45 cultur e, urine 2023 024 [facility], [address], [place], [address], 09:41:12 Referral None record ed. Procedures None record ed. Surgeries None record ed. Imaging None record ed. Medication Orders None record ed. Patient TargetsNo targets recorded. Patient InstructionsNo instructions recorded. Reason for Referral None Reported. Results Created Date Observation Date Name Description Value Unit Range Abnormal Flag Note LastModifiedBy Organization Detail LastModifiedTime 02/18/2002/18/2024 URINE CULTU RE final report MICROB IOLOGY RESULT S SOURC E Void KNOWN ALLER JULIANNE nkda TREAT MENT n/a MEDIA PLATE D AT: Media plate d on 2023 @ 5:25 PM RESUL T No Growt h This lab resul t is being provi ded to you and your provi ozzie at the same time in compl iance with the Centu ry Cures Act. Your provi ozzie may not have had time to revie w and make recom menda tions based on the resul t. Shirin e allow up to one week for provi ozzie revie w. Not Available [facility] [address] [facility] [address], [place], [address], 02/20/2024 09:41:12 02/18/2002/18/2024 urina lysis , dipst ick BLOOD Large (250 RBC/uL ) Not Available [facility] [address], [place], [address], 02/18/2024 16:02:33 02/18/2002/18/2024 urina lysis , dipst ick NITRITES Negati ve Not Available [facility] [address], [place], [address], 02/18/2024 16:02:33 02/18/2002/18/2024 urina lysis , dipst ick LEUKOCYTES Large (500 WBC/uL ) Not Available [facility] [address], [place], [address], 02/18/2024 16:02:33 10/03/19 25 10/03/2024 PSA, serum or plasm a PSA 0.11ng /mL 0-4.0 NG/mL Not Available [facility] [address], [place], [address], 10/03/2024 11:11:31 09/29/19 25 09/23/2024 MRI, prost ate, w/wo contr ast No observ ation record ed. [facility] [place] [address] [facility] , [place], [address], 10/03/2024 11:23:19 Result Notes None recorded. Problems Name Problem SNOMED Code Status Onset Date Resolution Date Notes Provider Name and Address Organization Details Recorded Time Abscess of prostate 1224742 Active 2024 Glen vanegas MD, PHD [address] [place] [address], [phone], [facility] 11:42:51 Male urinary stress incontinence 971152133 Active 2024 Glen vanegas MD, PHD [address] [place], [place] [address] [place] [address], [phone], [facility] 11:43:01 Problem Notes None recorded. Procedures Surgical History Date Name Laterality Status Provider Name and Address Organization Details Recorded Time 10/03/19 25 Bladder Scan completed Glen Chavez MD, PHD [address] [place] [address],[address], [address], [facility] 10/03/2024 11:18:27 10/03/19 25 Blood Draw/[employer] INSTRUCTOR/PSA RESULTS completed Glen Chavez MD, PHD [address] [place] [address], [phone], [facility] 10/03/2024 11:18:44 01/19/20 24 Prostate Surgery completed Tyra Almendarez [facility] 02/18/2024 14:53:31 02/09/20 colonoscopy completed Tyra Almendarez [facility] 02/18/2024 14:53:56 Imaging Results Imaging Date Name Status LastModified by Organiz ation Details LastModified Time 09/23/2024 MRI, prostate, w/wo contrast completed [facility] [place] [address] [facility] [place], [place], [address], 10/03/2024 11:23:19 Procedure Notes None recorded. Medical Equipment None Reported. Allergies Allergen ID Allergen Name Allergen Category Reaction Reaction Severity Criticality Documentation Date Start Date Code Code System Note Provider Name and Address Organization Details Recorded Time 215342 iodine medicatio n hives Not available Not available 10/03/20242019 5933 RxNorm Not Available Not Available Not Available Medications Name Sig Start Date Stop Date Status Note LastModified by Organization Details LastModified Time torsemide 20 mg tablet active Not Available Not Available Not Available metoprolol tartrate 100 mg tablet TAKE ONE TABLET BY MOUTH TWICE DAILY* active Not Available Not Available No t Available sulfamethox azole 800 mg-trimetho prim 160 mg tablet 10/03 completed Not Available Not Available Not Available warfarin 3 mg tablet active Not Available Not Available No t Available amlodipine 10 mg tablet TAKE ONE TABLET BY MOUTH ONE TIME DAILY* active Not Available Not Available No t Available cephalexin 500 mg capsule 10/03 completed Not Available Not Available Not Available warfarin 5 mg tablet take 1.5 tablets (7.5mg) by mouth daily* active Not Available Not Available No t Available gabapentin 300 mg capsule 02/17 completed Not Available Not Available Not Available hydrochloro thiazide 25 mg tablet active Not Available Not Available No t Available lisinopril 40 mg tablet active Not Available Not Available Not Available metformin ER 500 mg tablet,exte nded release 24 hr TAKE TWO TABLETS BY MOUTH TWICE DAILY* active Not Available Not Available No t Available spironolact one 50 mg tablet active Not Available Not Available Not Available enoxaparin 120 mg/0.8 mL subcutaneou s syringe 02/17 completed Not Available Not Available Not Available rosuvastati n 20 mg tablet active Not Available Not Available Not Available Lantus Solostar U-100 Insulin 100 unit/mL (3 mL) subcutaneou s pen inject 80 units (0.8 mL) subcutane ously twice a day* active Not Available Not Available No t Available potassium chloride ER 20 mEq tablet,exte nded release active Not Available Not Available Not Available Vitals Date Recorded Body height Body mass index (BMI) Body weight Provider Name and Address Organization Details Last Updated DateTime 02/18/2024 170.18 cm 38.8 kg/m2 158736.91 g Tyra Erickson [facility] 02/18/2024 14:48:42 Date Recorded Body height Body mass index (BMI) Body weight Provider Name and Address Organization Details Last Updated DateTime 10/03/2024 170.18 cm 38.8 kg/m2 844465.91 g Milhaleyi Barrett-Nina ero [facility] 10/03/2024 11:12:19 Social History Question Answer Notes LastModified by Organizat ion Details LastModified Time Tobacco Smoking Status [facility] 02/18/2024 14:52:27 What Is Your Level Of Alcohol Consumption? Occasional Information not available 02/18/2024 What Is Your Level Of Caffeine Consumption? Occasional Information not available 02/18/2024 When Did You Quit Smoking? 16+yearssincel astcigarette Information not available 02/18/2024 Recreational Drug Use No Information not available 02/18/2024 What Was The Date Of Your Most Recent Tobacco Screening? 10/03/2024 mmadrigalvalero Information not available 10/03/2024 Have You Ever Been Counseled For Unhealthy Alcohol Use? No Information not available 02/18/2024 How Much Tobacco Do You Smoke? No Information not available 02/18/2024 Do You Use Any Illicit Or Recreational Drugs? No Information not available 02/18/2024 Has Tobacco Cessation Counseling Been Provided? No Information not available 02/18/2024 Do You Or Have You Ever Used Any Other Forms Of Tobacco Or Nicotine? No Information not available 02/18/2024 How Many Days In The Past Year Have You Consumed 5 Or More Drinks? 0 Information not available 02/18/2024 Sex: Unknown Functional Status None recorded. Mental Status None recorded. Family History Relationship Description Onset Age of this Age Resolved Age Notes LastModified by Organization Details LastModified Time Father Leukemia addie Not availab le 02/18/2024 14:51:39 Medical History Condition Response High Blood Pressure Y Kidney Stones N Depression N Lung Disease N GERD/Acid Reflux N Sexually Transmitted Infection N Diabetes Y Bleeding Disorder N Cancer N High Cholesterol Y Heart Disease N Immunizations Vaccine Type Date Status Note Provider Nam e and Address Organization Details Recorded Time Influenza, split virus, quadrivalent, preservative 5 completed [facility] 14:48:50 Influenza, split virus, quadrivalent, preservative 1 completed [facility] 02/18/2024 14:48:50 Influenza, recombinant, quadrivalent, PF 9 completed [facility] 02/18/2024 14:48:50 zoster recombinant 2 completed Tyra Bwanakeye null, [facility] 02/18/2024 14:48:50 zoster recombinant 2 completed Tyra Bwanakeye null, [facility] 02/18/2024 14:48:50 Influenza, adjuvanted, quadrivalent, PF 3 completed [facility] 02/18/2024 14:48:50 COVID-19, mRNA, LNP-S, PF, 100 mcg/0.5mL dose or 50 mcg/0.25mL dose 1 completed [facility] 02/18/2024 14:48:50 COVID-19, mRNA, LNP-S, PF, 100 mcg/0.5mL dose or 50 mcg/0.25mL dose 1 completed Tyra Bwanakeye null, [facility] 02/18/2024 14:48:50 COVID-19, mRNA, LNP-S, PF, 100 mcg/0.5mL dose or 50 mcg/0.25mL dose 2 completed Tyra aClhounkeye null, [facility] 02/18/2024 14:48:51 Pneumococcal conjugate PCV20, polysaccharide QGS851 conjugate, adjuvant, PF 3 completed [facility] 02/18/2024 14:48:51 COVID-19, mRNA, LNP-S, bivalent, PF, 30 mcg/0.3 mL dose 2 completed Tyra Bwanakeye null, [facility] 02/18/2024 14:48:51 COVID-19, mRNA, LNP-S, PF, 50 mcg/0.5 mL 3 completed [facility] 02/18/2024 14:48:51 pneumococcal polysaccharide PPV23 1 completed [facility] 02/18/2024 14:48:51 influenza, unspecified formulation 3 completed [facility] 02/18/2024 14:48:51 influenza, unspecified formulation 0 completed Tyra Calhounkeye null, [facility] 02/18/2024 14:48:51 Tdap 7 completed [facility] 02/18/2024 14:48:51 Pneumococcal conjugate PCV 13 6 [facility] 02/18/2024 14:48:51 Influenza, high-dose, trivalent, PF 7 completed [facility] 02/18/2024 14:48:51 Td (adult), 5 Lf tetanus toxoid, preservative free, adsorbed 8 completed [facility] 02/18/2024 14:48:51 Influenza, split virus, quadrivalent, PF 7 completed [facility] 02/18/2024 14:48:51 Influenza, split virus, quadrivalent, PF 0 completed Tyra arce, [facility] 02/18/2024 14:48:51 Influenza, split virus, quadrivalent, PF 8 completed Tyra arce, [facility] 02/18/2024 14:48:51 Influenza, split virus, quadrivalent, PF 7 completed Tyra arce, [facility] 02/18/2024 14:48:51 Influenza, split virus, quadrivalent, PF 2 completed Tyra arce, [facility] 02/18/2024 14:48:51 Past Encounters Encounter ID Performer Location Encounter Start Date Encounter Closed Date Diagnosis/Indication Diagnosis SNOMED-CT Code Diagnosis ICD10 Code Diagnosis Note [id number] HERNAN HUYNH PA-C [facility] [address] [place] [address] 02/18/2024 14:32:43 02/29/2024 12:35:21 Abscess of prostate 0949044 N41.2 Discussed pathology with Charito jack -- will follow up in 6 monthsOn Bactrim per ID and will be following up with them soonWill check urine culture today given his worsening incontinen ce Benign pro static hyperplasia with outflow obstruction 132026959 N40.1 S/p TURP, prostate abscess unroofing 01/18 (Kandy vanegas)Still having some incontinen ce, managed with depends at this timeDiscus sed prolonged course of healing, incontinen ce may yet improve as he is only a few weeks out from surgery but due to the size/locat ion of his abscess this may be a chronic issue [id number] Glen jack MD, PHD [facility] [address] [place] [address] 10/03/2024 10:18:18 10/08/2024 09:54:55 Abscess of prostate 4620739 N41.2 Benign pro static hyperplasia with outflow obstruction 759316031 N40.1 Male urina ry stress incontinence 940624310 N39.3 Health Concerns Section Related Observation LastModified by Organization Detai ls LastModified Time None Recorded Concern Status LastModified by Organization Details LastModified Time None Recorded Advance Directives Directive None Recorded Payers Encounter Date Sequence Insurance Name Policy Number Policy Bet[place]court Covered Member ID Bettencourt Member ID Guarantor Name 02/18/2024 1 [facility] (MEDICARE REPLACEMENT/A DVANTAGE - PPO) [id number] [place]uma [place] [id number] [employer] [place] 10/03/2024 1 [facility] (MEDICARE REPLACEMENT/A DVANTAGE - PPO) [id number] [place]uma [place] [id number] [employer] [place] Notes Date Note Type Note Provider Name and Address Organization Details Recorded Time 02/18/2024 text/html 68 yo M presents for prostate abscess follow up. Recently admitted to [facility] with urosepsis with finding of prostate abscess, now s/p TURP and prostate abscess unroofing with Dr Chavez on 01/19/24. Postoperatively was weaned from CBI and discharged on 6 week course of Septra per ID. He was discharge with breaux x1 week, removed without issue in [place]. Was then admitted to [facility] with hypokalemia a couple weeks ago. 02/05/24 urine culture negative. ID recommended he stay on Bactrim, which he is still taking but having some GI upset, lack of appetite. Denies dysuria, fever, flank pain, or perineal pain today. Occasional pink gross hematuria, no clots. He endorses constant dribbling since his catheter was removed with very little urge/sensation of needing to void. Changes his Depends every 2-3 hours depending on how hydrated he is. He is on a loop diuretic which does not help. Surgical pathology with prostatic hyperplasia and chronic active prostatitis but also notable forRare foci of atypical B-cells, positive for clonal B-cell gene rearrangement: Suspicious for involvement by B-cell lymphoma. Mhx: T2DM, on warfarin HERNAN HUYNH PA-C [address] [facility], [place], [address], [facility] 02/19/2024 14:59:15 10/03/2024 text/html 69M presents for prostate abscess follow up. Feeling bloated last few months. 01/19/24: TUR/unroofing prostate abscess:Surgical pathology with prostatic hyperplasia and chronic active prostatitis but also notable forRare foci of atypical B-cells, positive for clonal B-cell gene rearrangement: Suspicious for involvement by B-cell lymphoma.Referral was made to [facility]. LUTS: some leakage; improving somewhat, uses 6-8 pads/day MRI prostate (09/23/24): 39g, resolved abscess, no suspicious lesions, no LAD PMH: DM2, AFib PSA results10/03/24: 0.11 Glen Chavez MD, PHD [address] [facility],[address], [place], [address], [facility] 10/03/2024 11:47:56
--- NOTE | 2024-11-12 15:27 | CRLHL7_ITS ---
For Patients: As a result of the Century Cures Act, medical imaging exams and procedure reports are released immediately into your electronic medical record. You may view this report before your referring provider. If you have questions, please contact your health care provider. Indication: Weakness Comparison: None available. Technique: Single AP view chest Findings: There is hyperinflation and chronic interstitial change. There is no focal consolidation, effusion, or pneumothorax. The cardiomediastinal silhouette is within normal limits. The bony thorax is grossly intact. Impression: No acute cardiopulmonary abnormality. Dictated by Chapin Coles MD @ 11/12/2024 3:51:58 PM (Electronically Signed)
--- NOTE | 2024-11-12 15:30 | ED_ITS ---
HPI - General Adult General Chief complaint: Weakness Stated complaint: Diarrhea, dehydration Time Seen by Provider: 11/12/24 14:06 History of Present Illness HPI narrative: [age] year white male who has elevated BMI history of hypertension, history of anticoagulation, chronic kidney disease, type 2 diabetes, intermittent abdominal pain, presents with not feeling well for the last few days. On Sunday he had a fever and diarrhea he had diarrhea for a couple of days that seems to slow down now. He has not had much appetite. He has not lost taste or smell. He has not had any cold cough fevers other than the 1st couple of days of the illness. No recent antibiotics. He has no blood in his stool, he has been able eat some yogurt and fluids but he has not had much of an appetite as mention. No dysuria frequency. He denies back pain. He reports his abdomen hurts occasionally. But not continuously. She had no skin rashes or swelling was arms or legs. Related Data Home Medications ?Medication ?Instructions ?Recorded ?Confirmed rosuvastatin 20 mg tablet 20 mg PO QPM 09/04/23 08/27/24 Previous Rx's ?Medication ?Instructions ?Recorded metoprolol tartrate 100 mg tablet 100 mg PO BID #90 tabs 07/17/24 amlodipine 10 mg tablet 10 mg PO QDAY #90 tabs 08/12/24 lisinopril 40 mg tablet 40 mg PO QDAY #90 tabs 10/08/24 insulin glargine 100 unit/mL (3 80 unit (0.8 mL) subcut BID #45 mL 10/13/24 mL) subcutaneous pen (Lantus Solostar U-100 Insulin) metformin 500 mg tablet,extended 1,000 mg (2 x 500 mg) PO BID #90 10/13/24 release 24 hr tabs warfarin 5 mg tablet 7.5 mg (1.5 x 5 mg) PO DAILY #60 10/13/24 tabs Allergies Allergy/AdvReac Type Severity Reaction Status Date / Time No Known Drug Allergies Allergy Verified 11/12/24 18:10 Review of Systems Status of ROS: Reports: 6 or more systems reviewed and unremarkable except as noted in History and below [facility] Medical History Abdominal pain ?R10.9 - Unspecified abdominal pain (ICD-10) Abscess of prostate (01/2024) ?N41.2 - Abscess of prostate (ICD-10) MRSA (methicillin resistant Staphylococcus aureus) ?A49.02 - Methicillin resistant Staphylococcus aureus infection, unspecified site (ICD-10) CKD (chronic kidney disease) stage 2, GFR 60-89 ml/min ?N18.2 - Chronic kidney disease, stage 2 (mild) (ICD-10) Sleep apnea (03/30/16) ?G47.30 - Sleep apnea, unspecified (ICD-10) Right atrial thrombus (10/08/19) ?I51.3 - Intracardiac thrombosis, not elsewhere classified (ICD-10) Patent foramen ovale (10/09/16) ?Q21.12 - Patent foramen ovale (ICD-10) Obesity, morbid (03/07/23) ?E66.01 - Morbid (severe) obesity due to excess calories (ICD-10) Mixed hyperlipidemia (03/19/17) ?E78.2 - Mixed hyperlipidemia (ICD-10) Hypertension (03/30/16) ?I10 - Essential (primary) hypertension (ICD-10) H/O bacterial endocarditis (06/21/18) ?Z86.79 - Personal history of other diseases of the circulatory system (ICD- 10) Type 2 diabetes mellitus (03/03/11) ?E11.9 - Type 2 diabetes mellitus without complications (ICD-10) Cardiomyopathy (07/10/18) ?I42.9 - Cardiomyopathy, unspecified (ICD-10) Ascending aorta dilation (07/02/23) ?I77.810 - Thoracic aortic ectasia (ICD-10) Anticoagulation monitoring, INR range 2-3 (10/09/19) ?Z79.01 - penitentiary (current) use of anticoagulants (ICD-10) Adenomatous colon polyp (01/01/18) ?D12.6 - Benign neoplasm of colon, unspecified (ICD-10) Surgical History H/O cystoscopy ?Z98.890 - Other specified postprocedural states (ICD-10) H/O colonoscopy ?Z98.890 - Other specified postprocedural states (ICD-10) Social History Narrative: Denies tobacco or alcohol use. Wishes to be FULL CODE. What is your current living situation?: I presently have a place to live Problems where you live: no known problems Problems where you live details: no known problem In the past 12 months, utilities in danger of being shut off: no In past 12 months, lack of transportation kept you from medical appts, meetings, work, or getting things needed for daily living: no In the past 12 mos, have been you worried that your food would run out before you had money to buy more?: never true In the past 12 mos, the food you bought just didn't last and you didn't have money to buy more?: never true Smoking Status: Former smoker Do you use any of these nicotine containing products: None Second hand tobacco smoke exposure: No How often do you have a drink containing alcohol: monthly or less How often do you have six or more drinks on one occasion: Never AUDIT-C Alcohol total score: 1 Non-prescribed substance use: denies use Caffeine: Yes (Coffee) How often does anyone, including family, friends and others, physically hurt you : never How often does anyone, including family, friends and others, insult or talk down to you: never How often does anyone, including family, friends and others, threaten you with harm: rarely How often does anyone, including family, friends and others, scream or curse at you: never service: No Health Related Social Needs: Other personal risk factors, not elsewhere classified (Z91.89) Exam Narrative: Exam Narrative: [age] year white male, Objective: In general alert orient x3, no apparent distress, mouth seems somewhat dry Neck is supple Chest is clear no rales or wheezing Heart distant heart sounds no obvious murmur noted regular rate and rhythm Abdomen obese benign nontender Extremities are no edema neurologic nonfocal upper lower extremities good strength, sensation. No skin rashes noted. Const: Vital Signs, click to edit/add: Vital Signs - 24 hr 11/12/24 13:44 11/12/24 15:27 11/12/24 16:00 Temperature 97.4 F L Pulse Rate 92 Pulse Rate [Pulse Oximeter] 101 H Respiratory Rate 36 H Blood Pressure Blood Pressure [Ri ght Upper Arm] 146/70 H Pulse Oximetry 92 95 90 Oxygen Delivery Me thod Room Air 11/12/24 16:15 11/12/24 16:30 11/12/24 16:45 Temperature Pulse Rate 92 87 88 Pulse Rate [Pulse Oximeter] Respiratory Rate 9 L 0 L 7 L Blood Pressure Blood Pressure [Ri ght Upper Arm] Pulse Oximetry 92 91 95 Oxygen Delivery Me thod 11/12/24 17:00 11/12/24 17:42 11/12/24 17:43 Temperature Pulse Rate 103 H 87 97 Pulse Rate [Pulse Oximeter] Respiratory Rate 21 21 22 Blood Pressure 125/71 Blood Pressure [Ri ght Upper Arm] Pulse Oximetry 97 94 94 Oxygen Delivery Me thod 11/12/24 17:45 11/12/24 17:47 11/12/24 18:08 Temperature Pulse Rate 89 101 H 97 Pulse Rate [Pulse Oximeter] Respiratory Rate 29 H 16 Blood Pressure 139/69 Blood Pressure [Ri ght Upper Arm] Pulse Oximetry 95 95 91 Oxygen Delivery Me thod 11/12/24 18:15 11/12/24 18:18 11/12/24 18:30 Temperature Pulse Rate 99 95 97 Pulse Rate [Pulse Oximeter] Respiratory Rate Blood Pressure 150/77 H Blood Pressure [Ri ght Upper Arm] Pulse Oximetry 90 93 89 Oxygen Delivery Me thod 11/12/24 18:33 11/12/24 18:45 11/12/24 18:48 Temperature Pulse Rate 96 88 100 Pulse Rate [Pulse Oximeter] Respiratory Rate 29 H Blood Pressure 149/68 H 131/81 Blood Pressure [Ri ght Upper Arm] Pulse Oximetry 97 95 95 Oxygen Delivery Me thod 11/12/24 19:00 11/12/24 19:02 11/12/24 19:15 Temperature Pulse Rate 109 H 99 90 Pulse Rate [Pulse Oximeter] Respiratory Rate 14 36 H 19 Blood Pressure 149/90 H Blood Pressure [Ri ght Upper Arm] Pulse Oximetry 93 92 94 Oxygen Delivery Me thod 11/12/24 19:17 11/12/24 19:30 11/12/24 19:33 Temperature Pulse Rate 95 101 H 101 H Pulse Rate [Pulse Oximeter] Respiratory Rate 32 H 13 37 H Blood Pressure 162/99 H Blood Pressure [Ri ght Upper Arm] Pulse Oximetry 88 94 95 Oxygen Delivery Me thod 11/12/24 19:45 11/12/24 19:47 Temperature Pulse Rate 90 97 Pulse Rate [Pulse Oximeter] Respiratory Rate 27 H 33 H Blood Pressure 111/76 Blood Pressure [Ri ght Upper Arm] Pulse Oximetry 89 90 Oxygen Delivery Me thod Course Vital Signs Vital signs: Initial Vital Signs Temperature 97.4 F L 11/12/24 13:44 Temperature Source Temporal Artery Scan 11/12/24 13:44 Pulse Rate 101 H 11/12/24 13:44 Pulse Rhythm Regular 11/12/24 13:44 Respiratory Rate 36 H 11/12/24 13:44 Blood Pressure 146/70 H 11/12/24 13:44 Blood Pressure Mean 95 11/12/24 13:44 Blood Pressure Position Sitting 11/12/24 13:44 Pulse Oximetry 92 11/12/24 13:44 Oxygen Delivery Method Room Air 11/12/24 13:44 Vital Signs Temperature 97.4 F L 11/12/24 13:44 Pulse Rate 101 H 11/12/24 13:44 Respiratory Rate 36 H 11/12/24 13:44 Blood Pressure 146/70 H 11/12/24 13:44 Pulse Oximetry 92 11/12/24 13:44 Oxygen Delivery Method Room Air 11/12/24 13:44 Temperature 97.4 F L 11/12/24 13:44 Pulse Rate 97 11/12/24 19:47 Respiratory Rate 33 H 11/12/24 19:47 Blood Pressure 111/76 11/12/24 19:47 Pulse Oximetry 90 11/12/24 19:47 Oxygen Delivery Method Room Air 11/12/24 13:44 Medications Administered Medications: Discontinued Medications Generic Name Dose Route Start Last Admin Trade Name Freq PRN Reason Stop Dose Admin Sodium Chloride 500 mls @ 500 mls/hr 11/12/24 15:27 11/12/24 19:56 0.9 % Sodium Chloride 500 Ml IV 11/12/24 16:26 Infused .Q1H ONE Infusion Piperacillin Sod/Tazobactam 100 mls @ 200 mls/hr 11/12/24 17:40 11/12/24 19:49 Sod 3.375 gm/ Sodium Chloride IVPB 11/12/24 17:41 200 mls/hr ONCE ONE Administration Pantoprazole Sodium 40 mg 11/12/24 17:41 11/12/24 19:49 Pantoprazole Sodium 40 Mg Inj IVP 11/12/24 17:42 40 mg ONCE ONE Administration Medical Decision Making [facility] Narrative Medical decision making narrative: [age] year white male with obesity hypertension and chronic kidney disease, currently anticoagulated, presents with not feeling well. He had a diarrhea illness in a febrile illness this weekend that have somewhat improved. He does seem to be a little bit better he feels. His brother brought him here today as he was concerned about him. He denies chest pain, denies shortness of breath. Denies diaphoresis. At this point I think could be diagnostic of general post viral, post diarrheal ill malaise and I think checking electrolytes, rehydrating him makes sense, check his cardiac status with the EKG and troponin, will check a chest x-ray. Will check COVID/influenza/RSV. Disposition pending findings above. He was comfortable this workup and assessment. 6:45 p.m. addendum: Patient a CT scan of his chest because he continued to be weak rule out PE given his INR subtherapeutic. This was negative basically with the limited bolus. But no large obvious emboli. CRP is elevated at 24.6, troponin is elevated 0.13. His renal function looks reasonably normal, his influenza a COVID RSV tests are negative. White count is 8070, his INR is 1.27, sodium 132 lactate is normal 1.4 glucose 234. CRP elevated as mention, BNP is elevated at 2100. Urinalysis shows 10-25 red cells and up to 10 white cells per high-powered field positive leukocyte and esterase and nitrate. Patient put on IV Zosyn, blood culture obtained. At this point in pending his CT scan of the abdomen pelvis. I suspect that he has perhaps even a UTI making him weak and giving him diarrhea. He has been given IV Zosyn. Blood cultures been obtained. He does have an elevated troponin certainly it could be stress induced, concert certainly could have had an AL in the past. His EKG looks reassuring. He is not having chest pain nor did he ever have chest pain. I do not have an old troponin to compare. Will repeat a troponin here to see if it is elevating or r emaining the same which would indicate perhaps it is always elevated slightly. He does have stage II renal failure by history. He also has known cardiomyopathy which could elevate his troponin if he has an element of heart failure and stress-induced enzyme leak. The patient has abdominal CT does have a delayed left nephrogram, that could be consistent with ascending infection which would make sense in his case given his urine results. IV Zosyn as mention. I think could be appropriate to talk to Cardiology regarding his elevated troponin if they have any recommendations regarding this other than just repeat. Addendum 7:23 p.m.: The patient has repeat troponin as the same and slightly lower than the last 1. Discussed with Cardiology they felt this was reassuring and with infection the troponin I for some reason can go significantly high. Will treat with antibiotics, could consider echocardiogram, need to increase anticoagulation. Discussed with hospitalist and they will follow in hospital thanks Lab Data Labs: Lab Results 11/12/24 11/12/24 11/12/24 Range/Units 15:28 15:55 17:43 WBC 8.07 (4.50-11.00) K/uL RBC 4.96 (4.30-5.90) m/uL Hgb 14.6 (13.5-17.5) gm/dL Hct 43.3 (37.0-53.0) % MCV 87 (80-100) fL MCH 29 (26-34) pg MCHC 34 (32-36) gm/dL RDW Coeff of Yunior 14.0 (11.5-15.5) % Plt Count 138 L (140-440) K/uL Neut % (Auto) 79.1 H (42.0-72.0) % Lymph % (Auto) 7.2 L (20-44) % [place] % (Auto) 12.9 H (0.0-11.0) % Eos % (Auto) 0.1 (0.0-7.0) % Baso % (Auto) 0.2 (0.0-3.0) % Neut # (Auto) 6.40 (1.7-7.0) K/uL Lymph # (Auto) 0.60 L (0.90-2.90) K/uL [place] # (Auto) 1.00 H (0.00-0.90) K/UL Eos # (Auto) 0.01 (0.00-0.50) K/uL Baso # (Auto) 0.02 (0.00-0.30) K/uL Abs Immat Gran (auto) 0.04 (0.00-0.30) K/uL Imm/Tot Granulo (auto) 0.5 % INR 1.27 H (0.91-1.10) Sodium 132 L (135-149) mmol/L Potassium 3.9 (3.6-5.1) mmol/L Chloride 95 L (96-114) mmol/L Carbon Dioxide 27 (20-32) mmol/L Anion Gap 10 (7-15) mEq/L BUN 14 (7-30) mg/dL Creatinine 1.1 (0.5-1.5) mg/dL Estimated Creat Clear 60.93 Estimated GFR 74 ml/min Glucose 234 H (60-115) mg/dL Lactate 1.4 (0.5-1.9) mmol/L Calcium 9.0 (8.4-10.6) mg/dL Total Bilirubin 1.2 (0.1-1.5) mg/dL Direct Bilirubin 0.4 (0.0-0.5) mg/dL AST 34 (12-35) U/L ALT 38 (4-50) U/L Alkaline Phosphatase 51 (40-150) U/L Troponin I 0.13 H* (0.01-0.04) ng/mL C-Reactive Protein 24.6 H (0.5-1.0) mg/dL NT-Pro-B Natriuret Pep 2100 pg/mL Total Protein 7.2 (6.0-8.3) g/dL Albumin 4.0 (3.3-5.0) g/dL Amylase 52 (18-89) U/L Urine Color Yellow (Yellow) Urine Appearance Slightly Cloudy A (Clear) Urine pH 5.5 (5.0-8.5) Ur Specific [place] 1.020 (1.000-1.030) Urine Protein 3+ A (Negative) Urine Glucose (UA) Negative (Negative) Urine Ketones 1+ A (Negative) Urine Blood 3+ A (Negative) Urine Nitrite Positive A (Negative) Urine Bilirubin Negative (Negative) Urine Urobilinogen 1.0 (0.2-1.0) Ur Leukocyte Esterase 1+ A (Negative) Urine RBC 10-25 A (0-2) Urine WBC 5-10 A (0-5) Ur Squamous Epith Cells Few (None-Few) Urine Bacteria Few A (None) SARS-CoV-2 (PCR) Negative SARS-CoV-2 (Negative) Influenza Type A (PCR) Negative PCR FLU A (Negative) Influenza Type B (PCR) Negative PCR FLU B (Negative) RSV (PCR) Negative PCR RSV (Negative) 11/12/24 Range/Units 18:16 WBC (4.50-11.00) K/uL RBC (4.30-5.90) m/uL Hgb (13.5-17.5) gm/dL Hct (37.0-53.0) % MCV (80-100) fL MCH (26-34) pg MCHC (32-36) gm/dL RDW Coeff of Yunior (11.5-15.5) % Plt Count (140-440) K/uL Neut % (Auto) (42.0-72.0) % Lymph % (Auto) (20-44) % [place] % (Auto) (0.0-11.0) % Eos % (Auto) (0.0-7.0) % Baso % (Auto) (0.0-3.0) % Neut # (Auto) (1.7-7.0) K/uL Lymph # (Auto) (0.90-2.90) K/uL [place] # (Auto) (0.00-0.90) K/UL Eos # (Auto) (0.00-0.50) K/uL Baso # (Auto) (0.00-0.30) K/uL Abs Immat Gran (auto) (0.00-0.30) K/uL Imm/Tot Granulo (auto) % INR (0.91-1.10) Sodium (135-149) mmol/L Potassium (3.6-5.1) mmol/L Chloride (96-114) mmol/L Carbon Dioxide (20-32) mmol/L Anion Gap (7-15) mEq/L BUN (7-30) mg/dL Creatinine (0.5-1.5) mg/dL Estimated Creat Clear Estimated GFR ml/min Glucose (60-115) mg/dL Lactate (0.5-1.9) mmol/L Calcium (8.4-10.6) mg/dL Total Bilirubin (0.1-1.5) mg/dL Direct Bilirubin (0.0-0.5) mg/dL AST (12-35) U/L ALT (4-50) U/L Alkaline Phosphatase (40-150) U/L Troponin I 0.12 H* (0.01-0.04) ng/mL C-Reactive Protein (0.5-1.0) mg/dL NT-Pro-B Natriuret Pep pg/mL Total Protein (6.0-8.3) g/dL Albumin (3.3-5.0) g/dL Amylase (18-89) U/L Urine Color (Yellow) Urine Appearance (Clear) Urine pH (5.0-8.5) Ur Specific [place] (1.000-1.030) Urine Protein (Negative) Urine Glucose (UA) (Negative) Urine Ketones (Negative) Urine Blood (Negative) Urine Nitrite (Negative) Urine Bilirubin (Negative) Urine Urobilinogen (0.2-1.0) Ur Leukocyte Esterase (Negative) Urine RBC (0-2) Urine WBC (0-5) Ur Squamous Epith Cells (None-Few) Urine Bacteria (None) SARS-CoV-2 (PCR) (Negative) Influenza Type A (PCR) (Negative) Influenza Type B (PCR) (Negative) RSV (PCR) (Negative) Discharge Plan Discharge Clinical Impression: Diarrhea, Weakness Patient Disposition: Admitted As Observation
--- OUTSIDE RECORDS SUMMARY | 2024-11-12 15:34 | XMS_ITS | Continuity of Care Document ---
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 Lab PSA, serum or plasma 2024 025 [email or web address] o [facility], [address], [place], [address], 11:11:54 Referral None record ed. Procedures None record ed. Surgeries None record ed. Imaging None record ed. Medication Orders None record ed. Patient TargetsNo targets recorded. Patient InstructionsNo instructions recorded. Reason for Referral None Reported. Results Created Date Observation Date Name Description Value Unit Range Abnormal Flag Note LastModifiedBy Organization Detail LastModifiedTime 10/03/19 25 10/03/2024 PSA, serum or plasm a PSA 0.11ng /mL 0-4.0 NG/mL Not Available [facility] [address], [place], [address], 10/03/2024 11:11:31 09/29/19 25 09/23/2024 MRI, prost ate, w/wo contr ast No observ ation record ed. [facility] Denise [address] [facility] [place], [address], 10/03/2024 11:23:19 Result Notes None recorded. Problems Name Problem SNOMED Code Status Onset Date Resolution Date Notes Provider Name and Address Organization Details Recorded Time Abscess of prostate 5783512 Active 2024 Glen vanegas MD, PHD [address] [place] [address], [phone], [facility] 11:42:51 Male urinary stress incontinence 857008796 Active 2024 Glen vanegas MD, PHD [address] [place] [address], [phone], [facility] 11:43:01 Problem Notes None recorded. Procedures Surgical History Date Name Laterality Status Provider Name and Address Organization Details Recorded Time 10/03/19 25 Bladder Scan completed Glen Chavez MD, PHD [address] [place] [address],[address], [address], [facility] 10/03/2024 11:18:27 10/03/19 25 Blood Draw/MUSEUM INFORMATICS SPECIALIST/PSA RESULTS completed Glen Chavez MD, PHD [address] [place] [address],[address], [address], [facility] 10/03/2024 11:18:44 01/19/20 24 Prostate Surgery completed Tyra Almendarez [facility] 02/18/2024 14:53:31 02/09/20 colonoscopy completed Tyra Almendarez [facility] 02/18/2024 14:53:56 Imaging Results None recorded. Procedure Notes None recorded. Medical Equipment None Reported. Allergies Allergen ID Allergen Name Allergen Category Reaction Reaction Severity Criticality Documentation Date Start Date Code Code System Note Provider Name and Address Organization Details Recorded Time 292382 iodine medicatio n hives Not available Not [...] Updated DateTime 10/03/2024 170.18 cm 38.8 kg/m2 349948.91 g Tammi Barrett-Nina o [place] - [facility] 10/03/2024 11:12:19 Social History Question Answer Notes LastModified by Organizat ion Details LastModified Time Tobacco Smoking Status Former Smoker Tyra arce [facility] 02/18/2024 14:52:27 What Is Your Level Of [...] by Organization Details LastModified Time Father Leukemia [email or web address] Not availab le 02/18/2024 14:51:39 Medical History Condition Response Sexually Transmitted Infection N Diabetes Y Bleeding Disorder N High Blood Pressure Y Kidney Stones N Cancer N Depression N Lung Disease N High Cholesterol Y GERD/Acid Reflux N Heart Disease N Immunizations Vaccine Type Date Status Note Provider Nam e and Address Organization Details Recorded Time Influenza, split virus, quadrivalent, preservative 5 completed Tyra arce [facility] 02/18/2024 14:48:50 Influenza, split virus, quadrivalent, preservative [address] [facility] 02/18/2024 14:48:50 Influenza, recombinant, quadrivalent, PF 9 completed Tyra Bwanakeye null, [facility] 02/18/2024 14:48:50 zoster recombinant 2 completed Tyra Bwanakeye null, [facility] 02/18/2024 14:48:50 zoster recombinant 2 completed Tyra Bwanakeye null, [facility] 02/18/2024 14:48:50 Influenza, adjuvanted, quadrivalent, PF 3 [facility] 14:48:50 COVID-19, mRNA, LNP-S, PF, 100 mcg/0.5mL dose or 50 mcg/0.25mL dose 1 [facility] 14:48:50 COVID-19, mRNA, LNP-S, PF, 100 mcg/0.5mL dose or 50 mcg/0.25mL dose 1 [facility] 14:48:50 COVID-19, mRNA, LNP-S, PF, 100 mcg/0.5mL dose or 50 mcg/0.25mL dose 2 [facility] 14:48:51 Pneumococcal conjugate PCV20, polysaccharide CRH345 conjugate, adjuvant, PF 3 [facility] 14:48:51 COVID-19, mRNA, LNP-S, bivalent, PF, 30 mcg/0.3 mL dose 2 [facility] 14:48:51 COVID-19, mRNA, LNP-S, PF, 50 mcg/0.5 mL 3 [facility] 14:48:51 pneumococcal polysaccharide PPV23 1 completed Tyra Bwanakeye null, [facility] 02/18/2024 14:48:51 influenza, unspecified formulation 3 completed Tyra Bwanakeye null, [facility] 02/18/2024 14:48:51 influenza, unspecified formulation 0 completed Tyra Bwanakeye null, [facility] 02/18/2024 14:48:51 Tdap 7 completed Tyra Bwanakeye null, [facility] 02/18/2024 14:48:51 Pneumococcal conjugate PCV 13 6 completed Tyra Bwanakeye null, [facility] 02/18/2024 14:48:51 Influenza, high-dose, trivalent, PF 7 completed Tyra Bwanakeye null, [facility] 02/18/2024 14:48:51 Td (adult), 5 Lf tetanus toxoid, preservative free, adsorbed 8 completed Tyra Bwanakeye null, [facility] 02/18/2024 14:48:51 Influenza, split virus, quadrivalent, PF 7 completed Tyra Bwanakeye null, [facility] 02/18/2024 14:48:51 Influenza, split virus, quadrivalent, PF 0 completed Tyra Bwanakeye null, [facility] 02/18/2024 14:48:51 Influenza, split virus, quadrivalent, PF 8 completed Tyra Bwanakeye null, [facility] 02/18/2024 14:48:51 Influenza, split virus, quadrivalent, PF 7 completed Tyra Bwanakeye null, [facility] 02/18/2024 14:48:51 Influenza, split virus, quadrivalent, PF 2 completed Tyra Bwanakeye null, [facility] 02/18/2024 14:48:51 Past Encounters Encounter ID Performer Location Encounter Start Date Encounter Closed Date Diagnosis/Indication Diagnosis SNOMED-CT Code Diagnosis ICD10 Code Diagnosis Note [id number] Glen jack MD, PHD [facility] [address] [place] [address] 10/03/2024 10:18:18 10/08/2024 09:54:55 Abscess of prostate 8273794 N41.2 Benign pro static hyperplasia with outflow obstruction 366645383 N40.1 Male urina ry stress incontinence 644097291 N39.3 Health Concerns Section Related Observation LastModified by Organization Detai ls LastModified Time None Recorded Concern Status LastModified by Organization Details LastModified Time None Recorded Payers Encounter Date Sequence Insurance Name Policy Number Policy Bet[place]court Covered Member ID Bettencourt Member ID Guarantor Name 10/03/2024 1 [facility] (MEDICARE REPLACEMENT/A DVANTAGE - PPO) [id number] [employer] [place] [id number] [employer] [place] Notes Date Note Type Note Provider Name and Address Organization Details Recorded Time 10/03/2024 text/html 69M presents for prostate abscess follow up. Feeling bloated last few months. 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 LUTS: some leakage; improving somewhat, uses 6-8 pads/day MRI prostate (09/23/24): 39g, resolved abscess, no suspicious lesions, no LAD PMH: DM2, AFib PSA results10/03/24: 0.11 Glen Chavez MD, PHD [address] [facility],[address], [place], [address], [facility] 10/03/2024 11:47:56"
--- OUTSIDE RECORDS SUMMARY | 2024-11-12 15:34 | XMS_ITS | Clinical Summary ---
Author Organization [facility] Address [address] [place] [address] Care Team Providers Care Steam Box Hand Name Role Phone Unavailable Primary Care Provider Unavailabl e Allergies Active Allergy Reactions Criticality Noted Date Comments Iodine Hives 10/08/2019 Medications Nrrhq-[id number]-[id number]-Fi sh Oil 1,000 mg (120 mg-180 mg) [...] be used to read blood sugars, follow safety spec directions. 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 1 Each 06/21/20 23 Active acetaminophen (TYLENOL EXTRA STRGTH) 500 mg tablet Take 500-1,000 mg by mouth every 6 hours if needed for Pain. Max acetaminophen dose: 4000mg in 24 hrs. 0 07/19/20 23 Active liraglutide (VICTOZA) 0.6 mg/0.1 mL (18 mg/3 mL) subcutaneous pen Inject 1.8 mg subcutaneous once daily. 36 mL 4 11:42 AM EVENT PROMOTER 10/25/19 24 Active Insulin [place], Disposable, (Novofine 32) 32 gauge x 1/4 To be used once daily with Victoza 200 Each 2 4 11:42 AM EVENT PROMOTER 10/25/19 24 Active ferrous sulfate 325 mg [...] mouth two times daily. 80 Tablet 4 1:15 PM CDT 01/23/20 24 Active cetirizine (ZYRTEC) 10 mg [...] two times daily. 180 Tablet 1 06/29/20 Active Active Problems Problem Noted Date Diagnosed Date [...] long-term use 07/01/2018 08/07/2023 Obesity 03/19/2017 08/07/2023 Immunizations Name Administration Dates Next Due AMB Influenza, IIV4 PF (=>6 mos Flulaval,Fluzone Fluarix)(Flu Clinic Only) 06/15/2020 COVID-19 vaccine (Moderna 100mcg/0.5mL) PF, MDV 12/27/2021,11/03/2020,10/06/2020 COVID-19 vaccine (MarketGid-Bio NTech 30mcg/0.3mL) 12YO+ BIVALENT PF, MDV 07/03/2022 [...] Recorded Sex Assigned at Not on file Legal Sex Male 10:45 AM CDT Gender Identity Not on file Sexual Orientation Not on file Obstetrics History Last Filed Vital Signs Vital Sign Reading Time Taken Comments Blood Pressure 136/72 03/05/2024 11:02 AM CDT Pulse 68 03/05/2024 11:02 AM CDT Temperature 36.4 C (97.5 F) 03/05/2024 11:02 AM CDT Respiratory Rate 16 01/23/2024 8:00 AM CDT Oxygen Saturation 96% 03/05/2024 11:02 AM CDT Inhaled Oxygen Concentration - - Weight 121.6 kg (268 lb) 03/05/2024 11:02 AM CDT Height 170.2 cm (5' 7) 01/18/2024 9:17 AM CDT Body Mass Index 41.97 01/18/2024 9:17 AM CDT Plan of Treatment Health Maintenance Due Date Last Done Comments RSV vaccine for adults or (1 - Risk 60-74 years 1-dose series) 2017 Colonoscopy through age 75 12/31/2020 12/31/2017, Medicare [...] Completed 07/03/2022, 02/22/2022 Pneumococcal series for age 50+ Completed 04/23/2023, 04/07/2016, 03/15/2011 AAA screening age [...] Maintenance Results * US ABD AORTA SCREENING [[id number]] (07/02/2023 9:12 AM CDT) Anatomical Region Laterality Modality Abdomen, AORTA Ultrasound 07/02/2023 10:0 6 AM CDT Narrative 07/02/2023 10:06 AM CDT For Patients: As a result of the Cures Act, medical imaging exams and procedure reports are released immediately into your electronic medical record. You may view this report before your referring provider. If you have questions, please contact your health [...] @ Jul 02 2023 10:06AM (Electronically Signed) Procedure Note Breezy Hooper MD - 07/02/2023 [...] @ Jul 02 2023 10:06AM (Electronically Signed) us Radha Prieto MD Final Resul t * (ABNORMAL) LIPID PANEL W REFLEX MEASURED LDL (06/19/2023 11:13 AM CDT) CHOLESTEROL,TOTAL 159 100 - 199 mg/dL 06/20/2023 7:00 AM CDT [facility] Comment: Cholesterol, Total Reference Ranges Desirable <200 mg/dL Borderline 200-239 mg/dL High >=240 mg/dL TRIGLYCERIDES 530(H) <150 mg/dL 06/20/2023 7:00 AM CDT [facility] HDL CHOLESTEROL 30(L) >40 mg/dL 7:00 AM CDT [facility] NON-HDL CHOLESTEROL 129 <145 mg/dl 06/20/2023 7:00 AM CDT [facility] CHOL/HDL RATIO 5.30(H) <4.50 06/20/2023 7:00 AM CDT [facility] LDL CHOLESTEROL 7:00 AM CDT [facility] Comment:Invalid LDL when Tri g >400. VLDL CHOLESTEROL COMMENT 06/20/2023 7:00 AM CDT [facility] Comment:Unable to calculate VLDL. PROVIDER ORDERED STATUS RANDOM 06/20/2023 7:00 AM CDT [facility] Blood BLOOD SPECIMEN / Unknown Venipuncture / Unknown 06/19/2023 11:13 AM CDT 06/19/2023 11:15 AM CDT Opal Richards DO CHEMISTRY Final Resu lt [facility] [address] [place] [address], [place] * ANTI HCV (02/27/2020 2:02 PM CDT) HEPATITIS C ANTIBODY Non-React gennaro Non-React gennaro 02/27/2020 8:36 PM CDT [facility] Comment:Antibodies to HCV no t detected; does not exclude the possibility of exposure to HCV. Blood BLOOD SPECIMEN / Unknown Butterfly / Unknown 02/27/2020 2:02 PM CDT 02/27/2020 2:03 PM CDT us Radha Prieto MD SEND OUTS Final Resul t [facility] 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 in acute/intermodal customer service care, receiving hemodialysis, has chronic open wounds/skin damage, has long-term percutaneous indwelling medical devices Exclusions for nares collection (if <12 months since positive culture) include all of the previous exclusions plus patients on antibiotics 7 days prior to collection 01/17/2024 01/17/2024 Insurance [facility] MR/MSHO Advance Directives * Full Code (Latest Code Status on File) Date Activated Date Inactivated Comments 01/17/2024 5:28 AM 01/23/2024 3:44 PM Question Answer Comments Code Status Discussion: Reviewed Preferences
[2024-11-12] MEDS: 0.9 % SODIUM CHLORIDE 500 ML 500 ML IV (16:00)
[2024-11-12 16:04] LABS: Basophils Absolute Auto 0.02 K/uL (0.00-0.30); Basophils Percent Auto 0.2 % (0.0-3.0); Eosinophils Absolute Auto 0.01 K/uL (0.00-0.50); Eosinophils Percent Auto 0.1 % (0.0-7.0); Hematocrit 43.3 % (37.0-53.0); Hemoglobin* 14.6 gm/dL (13.5-17.5); Immature Granulocytes Abs Auto 0.04 K/uL (0.00-0.30); Immature Granulocytes Pct Auto 0.5 %; Lymphocytes Percent Auto 7.2 % (20-44); Mean Corpuscular HGB Conc 34 gm/dL (32-36); Mean Corpuscular Hemoglobin 29 pg (26-34); Mean Corpuscular Volume 87 fL (80-100); Monocytes Percent Auto 12.9 % (0.0-11.0); Neutrophils Percent Auto 79.1 % (42.0-72.0); Platelet Count* 138 K/uL (140-440); Red Blood Count 4.96 m/uL (4.30-5.90); White Blood Count* 8.07 K/uL (4.50-11.00)
[2024-11-12 16:06] LABS: Lactate* 1.4 mmol/L (0.5-1.9)
[2024-11-12 16:11] LABS: Slide Review Reflex No
[2024-11-12 16:33] LABS: Chloride* 95 mmol/L (96-114); Sodium* 132 mmol/L (135-149)
[2024-11-12 16:34] LABS: Potassium* 3.9 mmol/L (3.6-5.1)
[2024-11-12 16:36] LABS: Alkaline Phosphatase* 51 U/L (40-150); Amylase* 52 U/L (18-89); Anion Gap 10 mEq/L (7-15); Aspartate Amino Transferase* 34 U/L (12-35); Bilirubin Direct* 0.4 mg/dL (0.0-0.5); Bilirubin Total* 1.2 mg/dL (0.1-1.5); Blood Urea Nitrogen* 14 mg/dL (7-30); Carbon Dioxide* 27 mmol/L (20-32); Creatinine* 1.1 mg/dL (0.5-1.5); Est. Creatinine Clearance* 60.93; Estimated Glomerular Filt Rate 74 ml/min; Glucose* 234 mg/dL (60-115); Total Protein* 7.2 g/dL (6.0-8.3)
[2024-11-12 16:37] LABS: Alanine Aminotransferase* 38 U/L (4-50)
[2024-11-12 16:44] LABS: PCR FLU A Negative PCR FLU A (Negative); PCR FLU B Negative PCR FLU B (Negative); PCR RSV Negative PCR RSV (Negative); SARS PCR* Negative SARS-CoV-2 (Negative)
[2024-11-12 17:04] LABS: C Reactive Protein* 24.6 mg/dL (0.5-1.0); NT Pro B Type NatriureticPept* 2100 pg/mL; Troponin I* 0.13 ng/mL (0.01-0.04)
--- NOTE | 2024-11-12 17:20 | CRLHL7_ITS ---
For Patients: As a result of the Century Cures Act, medical imaging exams and procedure reports are released immediately into your electronic medical record. You may view this report before your referring provider. If you have questions, please contact your health care provider. INDICATION: ABD PAIN, VERY SOB TECHNIQUE: CT abdomen and pelvis acquired with 134 cc Isovue 370 IV contrast. COMPARISON: August 2023. FINDINGS: Lower chest: Report of chest CT same day. ABDOMEN: Liver: Normal enhancement. Hepatic cysts. Subcentimeter hypodensities are too small to characterize however statistically represent cysts. Surgical clips abutting the right hepatic capsule. Gallbladder and biliary: Cholelithiasis in an otherwise normal gallbladder. Normal caliber bile ducts. Spleen: Normal size and enhancement. Pancreas: Normal enhancement without peripancreatic inflammatory changes or ductal dilatation. Adrenal glands: Normal adrenal glands. Kidneys and ureters: Subtle delayed nephrogram of the left kidney compared to the right. Associated mild prominence of the left renal collecting system compared to the right and mild left ureteral wall thickening, hyperemia and mild adjacent stranding. No discrete obstructing stone. Normal enhancement of the right kidney. Subcentimeter hypodensities are too small to characterize however statistically represent cysts. GI tract: The stomach is relatively decompressed. Normal caliber small and large bowel loops. The appendix is not definitively visualized. Colonic diverticulosis without diverticulitis. Vascular structures: Normal caliber aorta with atherosclerotic calcifications. Lymph nodes: No lymphadenopathy in the abdomen or pelvis by size criteria. Peritoneum: No free air, free fluid, or focal drainable fluid collection. PELVIS: Genitourinary system: Circumferential wall thickening of the urinary bladder. This may be secondary to muscular hypertrophy in the setting of chronic outlet obstruction from an enlarged prostate. Changes of TURP. SKELETAL STRUCTURES AND SOFT TISSUES: Lumbar spondylosis. IMPRESSION: Subtle delayed nephrogram of the left kidney compared to the right. Associated mild prominence of the left renal collecting system compared to the right and mild left ureteral wall thickening, hyperemia and mild adjacent stranding. No discrete obstructing stone. Differential considerations include underlying ureteritis/ascending infection. Please note that all CT scans at this facility use dose modulation, iterative reconstruction, and/or weight-based dosing when appropriate to reduce radiation dose to as low as reasonably achievable. Dictated by Breezy Valadez MD @ 11/12/2024 6:44:57 PM (Electronically Signed)
[2024-11-12 17:43] LABS: Bilirubin Urine Negative (Negative); Blood Urine 3+ (Negative); Color Urine Yellow (Yellow); Glucose Urine Negative (Negative); Ketones Urine 1+ (Negative); Leukocyte Esterase Urine 1+ (Negative); Nitrite Urine Positive (Negative); Protein Urine 3+ (Negative); pH Urine 5.5 (5.0-8.5)
[2024-11-12 18:20] LABS: INR 1.27 (0.91-1.10); Prothrombin Time 16.8 Seconds
[2024-11-12 18:27] LABS: Appearance Urine Slightly Cloudy (Clear)
[2024-11-12 18:33] LABS: Bacteria Urine Few; Squamous Epithelial Cell Urine Few (None-Few)
[2024-11-12 19:06] LABS: Troponin I* 0.12 ng/mL (0.01-0.04)
[2024-11-12] MEDS: PANTOPRAZOLE SODIUM 40 MG INJ IVP (19:49)
[2024-11-12] MEDS: PIPERACILLIN/TAZOBACTAM 3.375 GM in 0.9 % SODIUM CHLORIDE Mini-bag 100 ML IVPB (19:49)
--- NOTE | 2024-11-12 22:10 | PM.IMHP1 ---
Hospitalist- H&P: HPI History of Present Illness Date Seen: 11/12/24 Chief complaint: Diarrhea, dehydration Narrative: Juma South is a 69 year old male With past medical history of Obesity, hypertension, hyperlipidemia, diabetes, cardiomyopathy (EF in the 40s per the pt), ascending aortic dilatation, on warfarin for Rt mural thrombus, came in subtherapeutic with INR at 1.27 who presents with generalized weakness, abdominal pain, diarrhea, previously has been nauseated and vomiting in addition to shortness of breath and increasing of his weight though he mentioned that he was not able to eat and drink because of poor appetite. Pt has hx of recurrent UTIs (Ecoli). Patient's urinalysis was positive, CT abd w Cont showed: mild prominence of the left renal collecting system compared to the right and mild left ureteral wall thickening, hyperemia and mild adjacent stranding. No discrete obstructing stone. Differential considerations include underlying ureteritis/ascending infection. CTA -ve for PE. Lactate WNL and Bl Cx sent. EKG sinus tachy, Troponin elevated but flat at 0.13 -> 0.12. BNP 2100. IV Abx (Zosyn) started + Vancomycin d/t Hx of MRSA bacteremia, got 500 cc IVF at ED. C diff ordered. Review of Systems Status of ROS: Reports: 6 or more systems reviewed and unremarkable except as noted in History and below [facility] Medical History (Updated 11/12/24 @ 23:22 by Kassandra Campo MD) Mural thrombus of heart ?I51.3 - Intracardiac thrombosis, not elsewhere classified (ICD-10) Abdominal pain ?R10.9 - Unspecified abdominal pain (ICD-10) Abscess of prostate (01/2024) ?N41.2 - Abscess of prostate (ICD-10) MRSA (methicillin resistant Staphylococcus aureus) ?A49.02 - Methicillin resistant Staphylococcus aureus infection, unspecified site (ICD-10) CKD (chronic kidney disease) stage 2, GFR 60-89 ml/min ?N18.2 - Chronic kidney disease, stage 2 (mild) (ICD-10) Sleep apnea (03/30/16) ?G47.30 - Sleep apnea, unspecified (ICD-10) Right atrial thrombus (10/08/19) ?I51.3 - Intracardiac thrombosis, not elsewhere classified (ICD-10) Patent foramen ovale (10/09/16) ?Q21.12 - Patent foramen ovale (ICD-10) Obesity, morbid (03/07/23) ?E66.01 - Morbid (severe) obesity due to excess calories (ICD-10) Mixed hyperlipidemia (03/19/17) ?E78.2 - Mixed hyperlipidemia (ICD-10) Hypertension (03/30/16) ?I10 - Essential (primary) hypertension (ICD-10) H/O bacterial endocarditis (06/21/18) ?Z86.79 - Personal history of other diseases of the circulatory system (ICD-10) Type 2 diabetes mellitus (03/03/11) ?E11.9 - Type 2 diabetes mellitus without complications (ICD-10) Cardiomyopathy (07/10/18) ?I42.9 - Cardiomyopathy, unspecified (ICD-10) Ascending aorta dilation (07/02/23) ?I77.810 - Thoracic aortic ectasia (ICD-10) Anticoagulation monitoring, INR range 2-3 (10/09/19) ?Z79.01 - skilled nursing (current) use of anticoagulants (ICD-10) Adenomatous colon polyp (01/01/18) ?D12.6 - Benign neoplasm of colon, unspecified (ICD-10) Surgical History H/O cystoscopy ?Z98.890 - Other specified postprocedural states (ICD-10) H/O colonoscopy ?Z98.890 - Other specified postprocedural states (ICD-10) Social History Narrative: Denies tobacco or alcohol use. Wishes to be FULL CODE. What is your current living situation?: I presently have a place to live Problems where you live: no known problems Problems where you live details: n/a In the past 12 months, utilities in danger of being shut off: no In past 12 months, lack of transportation kept you from medical appts, meetings, work, or getting things needed for daily living: no In the past 12 mos, have been you worried that your food would run out before you had money to buy more?: never true In the past 12 mos, the food you bought just didn't last and you didn't have money to buy more?: never true Smoking Status: Former smoker What tobacco products do you use: cigars Do you use any of these nicotine containing products: None Second hand tobacco smoke exposure: No How often do you have a drink containing alcohol: 2-4 times a month How often do you have six or more drinks on one occasion: Never AUDIT-C Alcohol total score: 2 Non-prescribed substance use: denies use Caffeine: Yes How often does anyone, including family, friends and others, physically hurt you: never How often does anyone, including family, friends and others, insult or talk down to you: rarely How often does anyone, including family, friends and others, threaten you with harm: never How often does anyone, including family, friends and others, scream or curse at you: never service: No Health Related Social Needs: Other personal risk factors, not elsewhere classified (Z91.89) Meds Home Medications and Allergies Home Medications ?Medication ?Instructions ?Recorded ?Confirmed ?Type rosuvastatin 20 mg tablet 20 mg PO QPM 09/04/23 08/27/24 History Allergies Allergy/AdvReac Type Severity Reaction Status Date / Time No Known Drug Allergies Allergy Verified 11/12/24 18:10 Exam Narrative: Exam Narrative: Physical exam GENERAL: Sleepy, on O2 NC HEAD AND NECK: Atraumatic, normocephalic CARDIOVASCULAR: RRR. Normal S1, S2. No murmurs. RESPIRATORY: Clear to auscultation B/L. Reduced air entry. GASTROINTESTINAL: Obese, diffuse tenderness to palpation. NEUROLOGY: Alert, awake, oriented X 3. Normal speech. PSYCH: Normal mood, normal affect. Const: Vital Signs, click to edit/add: Vital Signs - 24 hr 11/12/24 13:44 11/12/24 15:27 11/12/24 16:00 Temperature 97.4 F L Pulse Rate 92 Pulse Rate [Pulse Oximeter] 101 H Respiratory Rate 36 H Blood Pressure Blood Pressure [Le ft Arm] Blood Pressure [Ri ght Upper Arm] 146/70 H Pulse Oximetry 92 95 90 Oxygen Delivery Me thod Room Air Oxygen Flow Rate 11/12/24 16:15 11/12/24 16:30 11/12/24 16:45 Temperature Pulse Rate 92 87 88 Pulse Rate [Pulse Oximeter] Respiratory Rate 9 L 0 L 7 L Blood Pressure Blood Pressure [Le ft Arm] Blood Pressure [Ri ght Upper Arm] Pulse Oximetry 92 91 95 Oxygen Delivery Me thod Oxygen Flow Rate 11/12/24 17:00 11/12/24 17:42 11/12/24 17:43 Temperature Pulse Rate 103 H 87 97 Pulse Rate [Pulse Oximeter] Respiratory Rate 21 21 22 Blood Pressure 125/71 Blood Pressure [Le ft Arm] Blood Pressure [Ri ght Upper Arm] Pulse Oximetry 97 94 94 Oxygen Delivery Me thod Oxygen Flow Rate 11/12/24 17:45 11/12/24 17:47 11/12/24 18:08 Temperature Pulse Rate 89 101 H 97 Pulse Rate [Pulse Oximeter] Respiratory Rate 29 H 16 Blood Pressure 139/69 Blood Pressure [Le ft Arm] Blood Pressure [Ri ght Upper Arm] Pulse Oximetry 95 95 91 Oxygen Delivery Me thod Oxygen Flow Rate 11/12/24 18:15 11/12/24 18:18 11/12/24 18:30 Temperature Pulse Rate 99 95 97 Pulse Rate [Pulse Oximeter] Respiratory Rate Blood Pressure 150/77 H Blood Pressure [Le ft Arm] Blood Pressure [Ri ght Upper Arm] Pulse Oximetry 90 93 89 Oxygen Delivery Me thod Oxygen Flow Rate 11/12/24 18:33 11/12/24 18:45 11/12/24 18:48 Temperature Pulse Rate 96 88 100 Pulse Rate [Pulse Oximeter] Respiratory Rate 29 H Blood Pressure 149/68 H 131/81 Blood Pressure [Le ft Arm] Blood Pressure [Ri ght Upper Arm] Pulse Oximetry 97 95 95 Oxygen Delivery Me thod Oxygen Flow Rate 11/12/24 19:00 11/12/24 19:02 11/12/24 19:15 Temperature Pulse Rate 109 H 99 90 Pulse Rate [Pulse Oximeter] Respiratory Rate 14 36 H 19 Blood Pressure 149/90 H Blood Pressure [Le ft Arm] Blood Pressure [Ri ght Upper Arm] Pulse Oximetry 93 92 94 Oxygen Delivery Me thod Oxygen Flow Rate 11/12/24 19:17 11/12/24 19:30 11/12/24 19:33 Temperature Pulse Rate 95 101 H 101 H Pulse Rate [Pulse Oximeter] Respiratory Rate 32 H 13 37 H Blood Pressure 162/99 H Blood Pressure [Le ft Arm] Blood Pressure [Ri ght Upper Arm] Pulse Oximetry 88 94 95 Oxygen Delivery Me thod Oxygen Flow Rate 11/12/24 19:45 11/12/24 19:47 11/12/24 20:34 Temperature 99.4 F Pulse Rate 90 97 Pulse Rate [Pulse Oximeter] 91 Respiratory Rate 27 H 33 H 21 Blood Pressure 111/76 Blood Pressure [Le ft Arm] 149/83 H Blood Pressure [Ri ght Upper Arm] Pulse Oximetry 89 90 95 Oxygen Delivery Me thod Nasal Cannula Oxygen Flow Rate 2 11/12/24 20:34 Temperature Pulse Rate Pulse Rate [Pulse Oximeter] Respiratory Rate 21 Blood Pressure Blood Pressure [Le ft Arm] Blood Pressure [Ri ght Upper Arm] Pulse Oximetry 95 Oxygen Delivery Me thod Nasal Cannula Oxygen Flow Rate 2 Hospitalist - H&P: Result Labs Labs: Short CBC 11/12/24 Range/Units 15:55 WBC 8.07 (4.50-11.00) K/uL Hgb 14.6 (13.5-17.5) gm/dL Hct 43.3 (37.0-53.0) % Plt Count 138 L (140-440) K/uL BMP 11/12/24 15:55 Sodium 132 L Potassium 3.9 Chloride 95 L Carbon Dioxide 27 BUN 14 Creatinine 1.1 Glucose 234 H Calcium 9.0 Cardiac Enzymes 11/12/24 11/12/24 Range/Units 15:55 18:16 Troponin I 0.13 H* 0.12 H* (0.01-0.04) ng/mL Liver Function 11/12/24 Range/Units 15:55 Total Bilirubin 1.2 (0.1-1.5) mg/dL Direct Bilirubin 0.4 (0.0-0.5) mg/dL AST 34 (12-35) U/L ALT 38 (4-50) U/L Alkaline Phosphatase 51 (40-150) U/L Albumin 4.0 (3.3-5.0) g/dL Urine 11/12/24 Range/Units 15:28 Urine Color Yellow (Yellow) Urine Appearance Slightly Cloudy A (Clear) Urine pH 5.5 (5.0-8.5) Ur Specific [place] 1.020 (1.000-1.030) Urine Protein 3+ A (Negative) Urine Glucose (UA) Negative (Negative) ECG Attestation: I personally reviewed and interpreted this ECG as follows: ECG interpretation date: 11/12/24 Interpretation: sinus tachy w 1st degree AV block Imaging CT Chest/Ab/Pelvis: Radiologist's impression: TECHNIQUE: CT abdomen and pelvis acquired with 134 cc Isovue 370 IV contrast. COMPARISON: August 2023. FINDINGS: Lower chest: Report of chest CT same day. ABDOMEN: Liver: Normal enhancement. Hepatic cysts. Subcentimeter hypodensities are too small to characterize however statistically represent cysts. Surgical clips abutting the right hepatic capsule. Gallbladder and biliary: Cholelithiasis in an otherwise normal gallbladder. Normal caliber bile ducts. Spleen: Normal size and enhancement. Pancreas: Normal enhancement without peripancreatic inflammatory changes or ductal dilatation. Adrenal glands: Normal adrenal glands. Kidneys and ureters: Subtle delayed nephrogram of the left kidney compared to the right. Associated mild prominence of the left renal collecting system compared to the right and mild left ureteral wall thickening, hyperemia and mild adjacent stranding. No discrete obstructing stone. Normal enhancement of the right kidney. Subcentimeter hypodensities are too small to characterize however statistically represent cysts. GI tract: The stomach is relatively decompressed. Normal caliber small and large bowel loops. The appendix is not definitively visualized. Colonic diverticulosis without diverticulitis. Vascular structures: Normal caliber aorta with atherosclerotic calcifications. Lymph nodes: No lymphadenopathy in the abdomen or pelvis by size criteria. Peritoneum: No free air, free fluid, or focal drainable fluid collection. PELVIS: Genitourinary system: Circumferential wall thickening of the urinary bladder. This may be secondary to muscular hypertrophy in the setting of chronic outlet obstruction from an enlarged prostate. Changes of TURP. SKELETAL STRUCTURES AND SOFT TISSUES: Lumbar spondylosis. IMPRESSION: Subtle delayed nephrogram of the left kidney compared to the right. Associated mild prominence of the left renal collecting system compared to the right and mild left ureteral wall thickening, hyperemia and mild adjacent stranding. No discrete obstructing stone. Differential considerations include underlying ureteritis/ascending infection. Please note that all CT scans at this facility use dose modulation, iterative reconstruction, and/or weight-based dosing when appropriate to reduce radiation dose to as low as reasonably achievable. Dictated by Breezy Valadez MD @ 11/12/2024 6:44:57 PM TECHNIQUE: CT chest PE was acquired with 100 cc Omnipaque 350 IV contrast. COMPARISON: None FINDINGS: Pulmonary Arteries: Suboptimal contrast bolus timing acquisition degrades evaluation of the distal segmental and subsegmental pulmonary arteries. No discrete large central or proximal segmental pulmonary embolus. No pulmonary hypertension or right ventricular strain. Heart and Mediastinum: The visualized portions of the thyroid are normal. No axillary or supraclavicular lymphadenopathy. No mediastinal, hilar or retrocrural lymphadenopathy. Normal heart size. Normal caliber aorta. Atherosclerotic and coronary artery calcifications. Lungs and Airways: Calcified granulomas. Scattered linear opacities likely subsegmental atelectasis. No mass or consolidation. No endoluminal lesion. Pleura: The pleural spaces are normal. Abdomen: Refer to abdominal CT of same day. Bones and soft tissues: The skeletal structures and soft tissues of the chest wall are unremarkable. IMPRESSION: 1. Suboptimal contrast bolus timing acquisition degrades evaluation of the distal segmental and subsegmental pulmonary arteries. No discrete large central or proximal segmental pulmonary embolus. 2. No mass or consolidation. Please note that all CT scans at this facility use dose modulation, iterative reconstruction, and/or weight-based dosing when appropriate to reduce radiation dose to as low as reasonably achievable. Dictated by Breezy Valadez MD @ 11/12/2024 6:36:09 PM Assessment and Plan Assessment and plan (1) Abdominal pain, vomiting, and diarrhea: Problem comment: Lactate WNL and Bl Cx sent. EKG sinus tachy, Troponin elevated but flat at 0.13 -> 0.12. BNP 2100. IV Abx (Zosyn) started + Vancomycin d/t Hx of MRSA bacteremia got 500 cc IVF at ED. C diff ordered. Status: Acute (2) Acute respiratory failure: Problem comment: Patient denies history of COPD, he states that he only has MILES Unlikely that his cardiomyopathy is the cause for respiratory distress, no pulmonary edema on CT scan CTA negative for PE Will order an echo Status: Acute (3) Pyelonephritis: Problem comment: Pt has hx of recurrent UTIs (Ecoli). Patient's urinalysis was positive, CT abd w Cont showed: mild prominence of the left renal collecting system compared to the right and mild left ureteral wall thickening, hyperemia and mild adjacent stranding. No discrete obstructing stone. Differential considerations include underlying ureteritis/ascending infection. IV Abx (Zosyn) started + Vancomycin d/t Hx of MRSA bacteremia Bl + U Cx Status: Suspected (4) Cardiomyopathy: Problem comment: EKG sinus tachy, Troponin elevated but flat at 0.13 -> 0.12. BNP 2100. CT chest unremarkable Will order an echo Patient states that he never needed a diuretic. Status: Acute (5) Type 2 diabetes mellitus: Problem comment: on insulin Status: Chronic (6) Subtherapeutic anticoagulation: Problem comment: INR 1.27 Status: Acute (7) MRSA (methicillin resistant Staphylococcus aureus): Problem comment: h/o MRSA bacteremia/endocarditis in 2016 & MRSA prostate abscess 01/2024. Status: Acute (8) Anticoagulation monitoring, INR range 2-3: Problem comment: For h/o R mural thrombus and & PFO. Goal 2-3. Status: Chronic (9) Mural thrombus of heart: Problem comment: As above Status: Acute (10) Ascending aorta dilation: Problem comment: US June 2023: 2.8 cm. Repeat imaging 5 years. Status: Chronic (11) Obesity, morbid: Status: Chronic Total Time Spent Total Time Spent: Time spent: Today I spent 75 minutes seeing the patient, discussing the patient with ER staff, reviewing Expanse and EPIC notes/diagnostics, discussing the care plan with our care time that includes social work, PT/OT, pharmacy, RT, intermediate and documenting my impressions and plan in the medical record.
--- NOTE | 2024-11-12 23:43 | PC.NURSE ---
Shift note (): Patient admitted from ED at 2034. Lives at [facility]. Pleasant, alert and oriented. Sleepy during admission assessment. On contact precautions for history of MRSA and pending C-diff results. Stand by assist with ambulation. Reported abdominal discomfort at times rated 3-4/10 and headache rated 3/10.??
[2024-11-12] MEDS: AMLODIPINE 10 MG TABLET PO (23:44)
[2024-11-12] MEDS: lisinopriL 20 MG TABLET 40 MG PO (23:45)
[2024-11-12] MEDS: WARFARIN 5 MG TABLET 7.5 MG PO (23:45)
[2024-11-12] MEDS: ACETAMINOPHEN 325 MG TABLET 650 MG PO (23:56)
[2024-11-13] VITALS (9 sets, daily range): BP systolic 119–136; BP diastolic 65–91; PULSE 71–94; RESP 18–22; TEMP 36.7–37.3; O2SAT 90–94
[2024-11-13 02:08] LABS: C.Difficile Negative (Negative); CDIFFEPI 027 PRESUMPTIVE NEGATIVE (Negative)
[2024-11-13] MEDS: PIPERACILLIN/TAZOBACTAM 4.5 GM in 0.9 % SODIUM CHLORIDE Mini-bag 100 ML IVPB ×4 (02:13→21:01)
[2024-11-13] MEDS: VANCOMYCIN 1.5 GM/300 ML 1.5 GM/300 ML PIGGYBACK IVPB ×2 (02:56→17:12)
--- NOTE | 2024-11-13 06:54 | PC.NURSE ---
Pt alert and oriented x3. Pt had temp of 99.9 overnight, treated with PRN Tylenol. Pt denies pain, chest pain, SOB, and N/V. SOB is noted with exertion.?Pt is up SBA with walker and gait belt, pt is voiding, and tolerating a regular diet. Pt had x2 small lose bowel movements overnight.
[2024-11-13 06:58] LABS: Albumin* 3.7 g/dL (3.3-5.0); Chloride* 98 mmol/L (96-114)
[2024-11-13 06:59] LABS: Potassium* 3.6 mmol/L (3.6-5.1); Sodium* 136 mmol/L (135-149)
[2024-11-13 07:00] LABS: INR 1.26 (0.91-1.10); Prothrombin Time 16.7 Seconds
[2024-11-13 07:01] LABS: Alkaline Phosphatase* 51 U/L (40-150); Anion Gap 10 mEq/L (7-15); Aspartate Amino Transferase* 34 U/L (12-35); Bilirubin Total* 1.1 mg/dL (0.1-1.5); Blood Urea Nitrogen* 14 mg/dL (7-30); Carbon Dioxide* 28 mmol/L (20-32); Est. Creatinine Clearance* 67.02; Estimated Glomerular Filt Rate 82 ml/min; Glucose* 223 mg/dL (60-115); Total Protein* 6.8 g/dL (6.0-8.3)
[2024-11-13 07:02] LABS: Alanine Aminotransferase* 37 U/L (4-50); Calcium* 8.5 mg/dL (8.4-10.6)
[2024-11-13 07:10] LABS: Hematocrit 42.5 % (37.0-53.0); Hemoglobin* 14.1 gm/dL (13.5-17.5); Mean Corpuscular HGB Conc 33 gm/dL (32-36); Mean Corpuscular Hemoglobin 29 pg (26-34); Mean Corpuscular Volume 89 fL (80-100); Platelet Count* 119 K/uL (140-440); White Blood Count* 7.65 K/uL (4.50-11.00)
[2024-11-13 07:11] LABS: Slide Review Reflex No
[2024-11-13] MEDS: INSULIN GLARGINE,HUM.REC.ANLOG 100 UNIT/ML INSULN.PEN 60 UNIT SUBCUT ×2 (09:39→21:06)
[2024-11-13] MEDS: INSULIN ASPART 100 UNIT/ML SUBCUT ×3 (09:40→17:11)
[2024-11-13] MEDS: METOPROLOL TARTRATE 100 MG TABLET PO ×2 (09:41→21:04)
[2024-11-13] MEDS: AMLODIPINE 10 MG TABLET PO (09:41)
[2024-11-13] MEDS: lisinopriL 20 MG TABLET 40 MG PO (09:42)
[2024-11-13] MEDS: PANTOPRAZOLE SODIUM 40 MG INJ IVP (09:42)
[2024-11-13] MEDS: SODIUM CHLORIDE 0.9 % (FLUSH) 10 ML SYRINGE 5 ML IVF ×2 (09:43→21:05)
--- NOTE | 2024-11-13 11:47 | P.IMPN_ITS ---
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 EKG sinus tachy, Troponin elevated but flat at 0.13 -> 0.12. BNP 2100. IV Abx (Zosyn) started + Vancomycin d/t Hx of MRSA bacteremia. 500 cc IVF at ED -following acute worsening prior to admission, has improved. Continues to feel chronically bloated -previous workup includes HIDA scan 07/2024 chronic versus acute cholecystitis, abdomen ultrasound 06/2024 showing enlarged liver with hepatic fatty infiltrat ion and hepatic cysts, cholelithiasis. -stool culture, GI path pending. H pylori added -continue PPI -consider outpatient GI consult Status: Chronic (4) Diarrhea: Problem details: -persists -C diff negative -culture and GI pathogen pending Status: Acute (5) Vomiting: Problem details: -resolved prior to admission, last episode was Sunday11/09/24 Status: Resolved (6) Pyelonephritis: Problem details: Pt has hx of recurrent UTIs (Ecoli). Patient's urinalysis was positive, CT abd w Cont showed: mild prominence of the left renal collecting system compared to the right and mild left ureteral wall thickening, hyperemia and mild adjacent stranding. No discrete obstructing stone. Differential considerations include underlying ureteritis/ascending infection. IV Abx (Zosyn) started + Vancomycin d/t Hx of MRSA bacteremia UC pending Status: Suspected (7) Acute respiratory failure: Problem details: Patient denies history of COPD, he states that he only has MILES Unlikely that his cardiomyopathy is the cause for respiratory distress, no pulmonary edema on CT scan CTA negative for PE Echo pending - discontinued for inpatient status, follow up outpatient Resolved, weaned to room air Status: Resolved (8) Cardiomyopathy: Problem details: EKG sinus tachy, Troponin elevated but flat at 0.13 -> 0.12. BNP 2100. CT chest shows Normal heart size. Normal caliber aorta. Atherosclerotic and coronary artery calcifications. Echo pending - discontinued for inpatient status, follow up outpatient Patient states that he never needed a diuretic Status: Acute (9) Type 2 diabetes mellitus: Problem details: -last A1c 11.7 -continue glargine 60 units at bedtime, glucose checks and ISS ACHS Status: Chronic (10) Mural thrombus of heart: Problem details: -R mural thrombus and PFO -chronic anticoagulation, Goal 2-3 Status: Acute (11) Subtherapeutic anticoagulation: Problem details: -INR 1.27 -continue warfarin, pharmacy to dose Status: Acute (12) Ascending aorta dilation: Problem details: US June 2023: 2.8 cm. Repeat imaging 5 years. Status: Chronic (13) Obesity, morbid: Problem details: -noted Status: Chronic (14) Thrombocytopenia: Problem details: -platelets 119, 138 on admission, previously WNL. Monitor Status: Acute Time Spent With Patient Total time spent: Today I spent 75 minutes seeing the patient, discussing the patient with ER staff, reviewing Expanse and Epic notes/diagnostics, discussing the care plan with our team that includes social work, PT/OT, pharmacy, RT, mcfp and documenting my impressions and plan in the medical record. Subjective Date Seen: 11/13/24 Interval history: Patient is seen sitting up in a chair this morning. Reports feeling better than on admission. Abdominal pain has improved but still present at its chronic level. Has had abdominal pain since March, mostly feeling distended bloated. Has had some outpatient workup with his PCP. Question at 1 time if he had a cholelithiasis. He is no longer nauseous. Last episode of vomiting was 11/09/2024. Continues with a few loose stools overnight. C diff thus far is negative. No known contacts or exposures. No longer requiring oxygen, has been weaned to room air and is comfortable. Denies chest pain or shortness of breath. Temp 99.9? just prior to midnight. Awaiting blood and urine cultures. Remains on vancomycin and Zosyn. Exam Narrative: Exam Narrative: PHYSICAL EXAM General: Pleasant, conversant, NAD HEENT: Normocephalic, atraumatic, sclera white, EOMI, oral mucosa moist Cardiovascular: RRR, S1S2 Pulmonary: CTA bilaterally without rhonchi, rales, expiratory wheezes. No dyspnea on room air Abdominal: distended, no focal tenderness, no guarding Neurological: Alert, answering questions appropriately, cranial nerves intact, no focal findings Extremities: No gross joint deformity or swelling. AROMI. Neurovascularly intact Skin: Warm, dry. Const: Vital Signs, click to edit/add: Vital Signs - 24 hr 11/12/24 13:44 11/12/24 15:27 11/12/24 16:00 Temperature 97.4 F L Pulse Rate 92 Pulse Rate [Pulse Oximeter] 101 H Respiratory Rate 36 H Blood Pressure Blood Pressure [Le ft Arm] Blood Pressure [Ri ght Arm] Blood Pressure [Ri ght Upper Arm] 146/70 H Pulse Oximetry 92 95 90 Oxygen Delivery Me thod Room Air Oxygen Flow Rate 11/12/24 16:15 11/12/24 16:30 11/12/24 16:45 Temperature Pulse Rate 92 87 88 Pulse Rate [Pulse Oximeter] Respiratory Rate 9 L 0 L 7 L Blood Pressure Blood Pressure [Le ft Arm] Blood Pressure [Ri ght Arm] Blood Pressure [Ri ght Upper Arm] Pulse Oximetry 92 91 95 Oxygen Delivery Me thod Oxygen Flow Rate 11/12/24 17:00 11/12/24 17:42 11/12/24 17:43 Temperature Pulse Rate 103 H 87 97 Pulse Rate [Pulse Oximeter] Respiratory Rate 21 21 22 Blood Pressure 125/71 Blood Pressure [Le ft Arm] Blood Pressure [Ri ght Arm] Blood Pressure [Ri ght Upper Arm] Pulse Oximetry 97 94 94 Oxygen Delivery Me thod Oxygen Flow Rate 11/12/24 17:45 11/12/24 17:47 11/12/24 18:08 Temperature Pulse Rate 89 101 H 97 Pulse Rate [Pulse Oximeter] Respiratory Rate 29 H 16 Blood Pressure 139/69 Blood Pressure [Le ft Arm] Blood Pressure [Ri ght Arm] Blood Pressure [Ri ght Upper Arm] Pulse Oximetry 95 95 91 Oxygen Delivery Me thod Oxygen Flow Rate 11/12/24 18:15 11/12/24 18:18 11/12/24 18:30 Temperature Pulse Rate 99 95 97 Pulse Rate [Pulse Oximeter] Respiratory Rate Blood Pressure 150/77 H Blood Pressure [Le ft Arm] Blood Pressure [Ri ght Arm] Blood Pressure [Ri ght Upper Arm] Pulse Oximetry 90 93 89 Oxygen Delivery Me thod Oxygen Flow Rate 11/12/24 18:33 11/12/24 18:45 11/12/24 18:48 Temperature Pulse Rate 96 88 100 Pulse Rate [Pulse Oximeter] Respiratory Rate 29 H Blood Pressure 149/68 H 131/81 Blood Pressure [Le ft Arm] Blood Pressure [Ri ght Arm] Blood Pressure [Ri ght Upper Arm] Pulse Oximetry 97 95 95 Oxygen Delivery Me thod Oxygen Flow Rate 11/12/24 19:00 11/12/24 19:02 11/12/24 19:15 Temperature Pulse Rate 109 H 99 90 Pulse Rate [Pulse Oximeter] Respiratory Rate 14 36 H 19 Blood Pressure 149/90 H Blood Pressure [Le ft Arm] Blood Pressure [Ri ght Arm] Blood Pressure [Ri ght Upper Arm] Pulse Oximetry 93 92 94 Oxygen Delivery Me thod Oxygen Flow Rate 11/12/24 19:17 11/12/24 19:30 11/12/24 19:33 Temperature Pulse Rate 95 101 H 101 H Pulse Rate [Pulse Oximeter] Respiratory Rate 32 H 13 37 H Blood Pressure 162/99 H Blood Pressure [Le ft Arm] Blood Pressure [Ri ght Arm] Blood Pressure [Ri ght Upper Arm] Pulse Oximetry 88 94 95 Oxygen Delivery Me thod Oxygen Flow Rate 11/12/24 19:45 11/12/24 19:47 11/12/24 20:34 Temperature 99.4 F Pulse Rate 90 97 Pulse Rate [Pulse Oximeter] 91 Respiratory Rate 27 H 33 H 21 Blood Pressure 111/76 Blood Pressure [Le ft Arm] 149/83 H Blood Pressure [Ri ght Arm] Blood Pressure [Ri ght Upper Arm] Pulse Oximetry 89 90 95 Oxygen Delivery Me thod Nasal Cannula Oxygen Flow Rate 2 11/12/24 20:34 11/12/24 23:00 11/12/24 23:40 Temperature Pulse Rate 77 Pulse Rate [Pulse Oximeter] Respiratory Rate 21 Blood Pressure Blood Pressure [Le ft Arm] Blood Pressure [Ri ght Arm] Blood Pressure [Ri ght Upper Arm] Pulse Oximetry 95 95 Oxygen Delivery Me thod Nasal Cannula Oxygen Flow Rate 2 11/12/24 23:40 11/12/24 23:40 11/12/24 23:56 Temperature 99.9 F H 99.9 F H Pulse Rate Pulse Rate [Pulse Oximeter] 86 Respiratory Rate 20 20 Blood Pressure Blood Pressure [Le ft Arm] 127/66 Blood Pressure [Ri ght Arm] Blood Pressure [Ri ght Upper Arm] Pulse Oximetry 95 Oxygen Delivery Me thod Nasal Cannula Oxygen Flow Rate 2 11/13/24 02:17 11/13/24 02:18 11/13/24 07:18 Temperature 98.3 F 98.3 F Pulse Rate 94 Pulse Rate [Pulse Oximeter] 73 Respiratory Rate 22 Blood Pressure Blood Pressure [Le ft Arm] 120/70 Blood Pressure [Ri ght Arm] Blood Pressure [Ri ght Upper Arm] Pulse Oximetry 94 Oxygen Delivery Me thod Nasal Cannula Oxygen Flow Rate 2 11/13/24 08:05 11/13/24 08:05 Temperature 98.9 F Pulse Rate Pulse Rate [Pulse Oximeter] 92 92 Respiratory Rate 20 20 Blood Pressure Blood Pressure [Le ft Arm] Blood Pressure [Ri ght Arm] 136/69 Blood Pressure [Ri ght Upper Arm] Pulse Oximetry 90 Oxygen Delivery Me thod Room Air Oxygen Flow Rate Labs Labs: Laboratory Results - last 24 hr 11/12/24 11/12/24 11/12/24 15:28 15:55 17:43 WBC 8.07 RBC 4.96 Hgb 14.6 Hct 43.3 MCV 87 MCH 29 MCHC 34 RDW Coeff of Yunior 14.0 Plt Count 138 L Neut % (Auto) 79.1 H Lymph % (Auto) 7.2 L [place] % (Auto) 12.9 H Eos % (Auto) 0.1 Baso % (Auto) 0.2 Neut # (Auto) 6.40 Lymph # (Auto) 0.60 L [place] # (Auto) 1.00 H Eos # (Auto) 0.01 Baso # (Auto) 0.02 Abs Immat Gran (auto) 0.04 Imm/Tot Granulo (auto) 0.5 INR 1.27 H Sodium 132 L Potassium 3.9 Chloride 95 L Carbon Dioxide 27 Anion Gap 10 BUN 14 Creatinine 1.1 Estimated Creat Clear 60.93 Estimated GFR 74 Glucose 234 H Lactate 1.4 Calcium 9.0 Magnesium Total Bilirubin 1.2 Direct Bilirubin 0.4 AST 34 ALT 38 Alkaline Phosphatase 51 Troponin I 0.13 H* C-Reactive Protein 24.6 H NT-Pro-B Natriuret Pep 2100 Total Protein 7.2 Albumin 4.0 Amylase 52 Urine Color Yellow Urine Appearance Slightly Cloudy A Urine pH 5.5 Ur Specific [place] 1.020 Urine Protein 3+ A Urine Glucose (UA) Negative Urine Ketones 1+ A Urine Blood 3+ A Urine Nitrite Positive A Urine Bilirubin Negative Urine Urobilinogen 1.0 Ur Leukocyte Esterase 1+ A Urine RBC 10-25 A Urine WBC 5-10 A Ur Squamous Epith Cells Few Urine Bacteria Few A Stl C. diff Tox B Gene Stl C. diff 027-NAP1-BI SARS-CoV-2 (PCR) Negative SARS-CoV-2 Influenza Type A (PCR) Negative PCR FLU A Influenza Type B (PCR) Negative PCR FLU B RSV (PCR) Negative PCR RSV Lab Acknowledgement 11/12/24 11/13/24 11/13/24 18:16 01:00 06:05 WBC 7.65 RBC 4.80 Hgb 14.1 Hct 42.5 MCV 89 MCH 29 MCHC 33 RDW Coeff of Yunior Plt Count 119 L Neut % (Auto) Lymph % (Auto) [place] % (Auto) Eos % (Auto) Baso % (Auto) Neut # (Auto) Lymph # (Auto) [place] # (Auto) Eos # (Auto) Baso # (Auto) Abs Immat Gran (auto) Imm/Tot Granulo (auto) INR 1.26 H Sodium 136 Potassium 3.6 Chloride 98 Carbon Dioxide 28 Anion Gap 10 BUN 14 Creatinine 1.0 Estimated Creat Clear 67.02 Estimated GFR 82 Glucose 223 H Lactate Calcium 8.5 Magnesium 2.0 Total Bilirubin 1.1 Direct Bilirubin AST 34 ALT 37 Alkaline Phosphatase 51 Troponin I 0.12 H* C-Reactive Protein NT-Pro-B Natriuret Pep Total Protein 6.8 Albumin 3.7 Amylase Urine Color Urine Appearance Urine pH Ur Specific [place] Urine Protein Urine Glucose (UA) Urine Ketones Urine Blood Urine Nitrite Urine Bilirubin Urine Urobilinogen Ur Leukocyte Esterase Urine RBC Urine WBC Ur Squamous Epith Cells Urine Bacteria Stl C. diff Tox B Gene Negative Stl C. diff 027-NAP1-BI PRESUMPTIVE NEGATIVE SARS-CoV-2 (PCR) Influenza Type A (PCR) Influenza Type B (PCR) RSV (PCR) Lab Acknowledgement 11/13/24 10:04 WBC RBC Hgb Hct MCV MCH MCHC RDW Coeff of Yunior Plt Count Neut % (Auto) Lymph % (Auto) [place] % (Auto) Eos % (Auto) Baso % (Auto) Neut # (Auto) Lymph # (Auto) [place] # (Auto) Eos # (Auto) Baso # (Auto) Abs Immat Gran (auto) Imm/Tot Granulo (auto) INR Sodium Potassium Chloride Carbon Dioxide Anion Gap BUN Creatinine Estimated Creat Clear Estimated GFR Glucose Lactate Calcium Magnesium Total Bilirubin Direct Bilirubin AST ALT Alkaline Phosphatase Troponin I C-Reactive Protein NT-Pro-B Natriuret Pep Total Protein Albumin Amylase Urine Color Urine Appearance Urine pH Ur Specific [place] Urine Protein Urine Glucose (UA) Urine Ketones Urine Blood Urine Nitrite Urine Bilirubin Urine Urobilinogen Ur Leukocyte Esterase Urine RBC Urine WBC Ur Squamous Epith Cells Urine Bacteria Stl C. diff Tox B Gene Stl C. diff 027-NAP1-BI SARS-CoV-2 (PCR) Influenza Type A (PCR) Influenza Type B (PCR) RSV (PCR) Lab Acknowledgement Test Added
[2024-11-13 13:14] LABS: H pylori Ag Stool* Negative (Negative)
[2024-11-13] MEDS: WARFARIN 5 MG TABLET 7.5 MG PO (17:10)
--- NOTE | 2024-11-13 18:50 | PC.NURSE ---
Pt up independent in room to BR. Denies nausea or diarrhea. As day progressed pt went from abdominal pain of 2-3/10 to 0/10 pain. Tolerates regular lunch and dinner. See MAR or antibiotics given.
[2024-11-13] MEDS: ROSUVASTATIN CALCIUM 10 MG TABLET 20 MG PO (19:20)
[2024-11-13] MEDS: ACETAMINOPHEN 325 MG TABLET 650 MG PO (23:02)
[2024-11-14] VITALS (8 sets, daily range): BP systolic 117–140; BP diastolic 63–80; PULSE 64–81; RESP 18–28; TEMP 36.6–37.2; O2SAT 91–97
[2024-11-14] MEDS: PIPERACILLIN/TAZOBACTAM 4.5 GM in 0.9 % SODIUM CHLORIDE Mini-bag 100 ML IVPB ×2 (02:14→09:12)
[2024-11-14] MEDS: VANCOMYCIN 1.5 GM/300 ML 1.5 GM/300 ML PIGGYBACK IVPB ×2 (03:15→16:59)
--- NOTE | 2024-11-14 05:52 | PC.NURSE ---
End of shift report [id number]: Pleasant and cooperative with cares. Independent with transfers and ambulation within room. Headache reported at 3/10, pain well managed with PRN tylenol and light reduction in room. Abdomen round and firm, bowel sounds active x 4 quadrants. Patient passing large amounts of flatus, one small, loose bm this shift. Denies any nausea or vomiting. Urine is cloudy, omkar in appearance with normal odor. Denies any pain or burning with urination.
[2024-11-14 07:15] LABS: INR 1.59 (0.91-1.10)
[2024-11-14] MEDS: INSULIN ASPART 100 UNIT/ML SUBCUT ×4 (09:03→20:46)
[2024-11-14] MEDS: INSULIN GLARGINE,HUM.REC.ANLOG 100 UNIT/ML INSULN.PEN 60 UNIT SUBCUT ×2 (09:03→20:46)
[2024-11-14] MEDS: METOPROLOL TARTRATE 100 MG TABLET PO ×2 (09:04→20:29)
[2024-11-14] MEDS: AMLODIPINE 10 MG TABLET PO (09:04)
[2024-11-14] MEDS: lisinopriL 20 MG TABLET 40 MG PO (09:04)
[2024-11-14] MEDS: PANTOPRAZOLE SODIUM 40 MG INJ IVP (09:04)
[2024-11-14] MEDS: SODIUM CHLORIDE 0.9 % (FLUSH) 10 ML SYRINGE 5 ML IVF ×2 (09:05→20:29)
--- NOTE | 2024-11-14 09:26 | PM.IMPN1 ---
Progress Note: A&P Assessment and plan (1) Bacteremia: Problem details: -1 of 2 bottles growing gram positive cocci in clusters, identified as Staph aureus -continue vancomycin and zosyn - covering for MRSA, awaiting susceptibilities -repeat blood culture ordered 11/13 and 11/14 ECHO 11/13 without report of vegetation though technically limited exam Status: Acute (2) Pyelonephritis: Problem details: Pt has hx of recurrent UTIs (Ecoli). Patient's urinalysis was positive, CT abd w Cont showed: mild prominence of the left renal collecting system compared to the right and mild left ureteral wall thickening, hyperemia and mild adjacent stranding. No discrete obstructing stone. Differential considerations include underlying ureteritis/ascending infection. IV Abx (Zosyn) started + Vancomycin d/t Hx of MRSA bacteremia UC growing Staph aureus, MRSA confirmation pending. 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 EKG sinus tachy, Troponin elevated but flat at 0.13 -> 0.12. BNP 2100. IV Abx (Zosyn) started + Vancomycin d/t Hx of MRSA bacteremia. 500 cc IVF at ED -following acute worsening prior to admission, has improved. Continues to feel chronically bloated -previous workup includes HIDA scan 07/2024 chronic versus acute cholecystitis, abdomen ultrasound 06/2024 showing enlarged liver with hepatic fatty infiltration and hepatic cysts, cholelithiasis. -stool culture, O&P, GI path pending. H pylori negative -continue PPI -consider outpatient GI consult Status: Chronic (5) Diarrhea: Problem details: -persists -C diff negative -culture, O&P, and GI pathogen pending Status: Acute (6) Vomiting: Problem details: -resolved prior to admission, last episode was Sunday11/09/24 Status: Resolved (7) Acute respiratory failure: Problem details: Patient denies history of COPD, he states that he only has MILES Unlikely that his cardiomyopathy is the cause for respiratory distress, no pulmonary edema on CT scan CTA negative for PE Echo pending - discontinued for inpatient status, follow up outpatient Resolved, weaned to room air Status: Resolved (8) Cardiomyopathy: Problem details: EKG sinus tachy, Troponin elevated but flat at 0.13 -> 0.12. BNP 2100. CT chest shows Normal heart size. Normal caliber aorta. Atherosclerotic and coronary artery calcifications. Patient reports previous echo EF in the 40% range. I have not found this in his EMR Patient states that he never needed a diuretic Will give couple of doses of IV Lasix given notable LE peripheral edema, discomfort. Reassess Echo 11/13/2024 Final Impressions: 1. Technically limited exam. 2. Normal LV size, mildly increased wall thickness, mildly reduced global systolic function with an estimated EF of 40 - 45%. 3. Mild concentric left ventricular hypertrophy. 4. Entire inferior wall is hypokinetic. 5. Mildly enlarged left atrium. 6. Right ventricular cavity size is mildly enlarged, global systolic RV function is borderline reduced. 7. Dilated sinus of Valsalva, diameter of 4.3 cm (upper limt of normal for age, sex, and BSA is 4.2 cm*), Height Index 2.53 cm/m. 8. No significant valve disease detected. Status: Acute (9) Type 2 diabetes mellitus: Problem details: -last A1c 11.7 -continue glargine 60 units at bedtime, glucose checks and ISS ACHS Status: Chronic (10) Mural thrombus of heart: Problem details: -R mural thrombus and PFO -chronic anticoagulation, Goal 2-3 Status: Acute (11) Subtherapeutic anticoagulation: Problem details: -INR 1.27, slowly increasing. Question if taking at home as prescribed -continue warfarin, pharmacy to dose Status: Acute (12) Ascending aorta dilation: Problem details: June 2023: 2.8 cm. Repeat imaging 5 years. Status: Chronic (13) Obesity, morbid: Problem details: -noted Status: Chronic (14) Hypokalemia: Problem details: -potassium 3.2, oral supplement and monitor Status: Acute Time Spent With Patient Total time spent: Today I spent 75 minutes seeing the patient, discussing the patient with ER staff, reviewing Expanse and Epic notes/diagnostics, discussing the care plan with our team that includes social work, PT/OT, pharmacy, RT, longterm and documenting my impressions and plan in the medical record. Subjective Date Seen: 11/14/24 Interval history: Patient reports feeling better this morning. Continuing to improve each day. Denies headache or dizziness. Denies chest pain or shortness of breath. Abdominal pain is usual chronic pain at this point. Tolerating orals without nausea or vomiting. Has been actively walking the hallways. Admitted on 11/12/2024 with abdominal pain, diarrhea, recent vomiting, hypoxia which resolved shortly after admission. Currently managing staph aureus bacteremia - awaiting susceptibilities and pyelonephritis with urine culture growing Gram-positive cocci - awaiting susceptibilities. Exam Narrative: Exam Narrative: PHYSICAL EXAM General: Pleasant, conversant, NAD Cardiovascular: RRR, S1S2 Pulmonary: CTA bilaterally without rhonchi, rales, expiratory wheezes. No dyspnea on room air Abdominal: Remains distended, no focal tenderness, no guarding Neurological: Alert, answering questions appropriately, cranial nerves intact, no focal findings Extremities: No gross joint deformity or swelling. AROMI. Neurovascularly intact Skin: Warm, dry. Const: Vital Signs, click to edit/add: Vital Signs - 24 hr 11/13/24 11:45 11/13/24 15:45 11/13/24 16:15 Temperature 98.5 F Pulse Rate 86 Pulse Rate [Pulse Oximeter] 92 77 Respiratory Rate 20 20 Blood Pressure [Ri ght Arm] 125/77 Pulse Oximetry 90 Oxygen Delivery Me thod Room Air 11/13/24 16:15 11/13/24 19:47 11/13/24 23:00 Temperature 98.4 F 99.1 F Pulse Rate 88 Pulse Rate [Pulse Oximeter] 77 78 Respiratory Rate 20 18 Blood Pressure [Ri ght Arm] 119/65 135/91 H Pulse Oximetry 92 91 Oxygen Delivery Mo thod Room Air Room Air 11/13/24 23:00 11/13/24 23:00 11/13/24 23:00 Temperature 98.1 F Pulse Rate Pulse Rate [Pulse Oximeter] 71 71 Respiratory Rate 18 18 Blood Pressure [Ri ght Arm] 126/77 Pulse Oximetry 91 91 Oxygen Delivery Mo thod Room Air 11/14/24 03:00 11/14/24 08:49 11/14/24 08:49 Temperature 98.9 F 98 F Pulse Rate Pulse Rate [Pulse Oximeter] 64 72 74 Respiratory Rate 22 18 18 Blood Pressure [Ri ght Arm] 122/65 123/63 Pulse Oximetry 95 93 Oxygen Delivery Me thod Room Air Room Air Labs Labs: Laboratory Results - last 24 hr 11/13/24 11/13/24 11/13/24 01:00 10:04 11:49 INR Stool H. pylori Ag Negative Lab Acknowledgement Test Added Test Added 11/14/24 05:58 INR 1.59 H Stool H. pylori Ag Lab Acknowledgement
[2024-11-14 09:28] LABS: Chloride* 102 mmol/L (96-114); Hemoglobin* 13.4 gm/dL (13.5-17.5); Mean Corpuscular HGB Conc 34 gm/dL (32-36); Mean Corpuscular Hemoglobin 29 pg (26-34); Mean Corpuscular Volume 88 fL (80-100); Platelet Count* 143 K/uL (140-440); Potassium* 3.2 mmol/L (3.6-5.1); Red Blood Count 4.57 m/uL (4.30-5.90); Sodium* 136 mmol/L (135-149); White Blood Count* 6.47 K/uL (4.50-11.00)
[2024-11-14 09:31] LABS: Anion Gap 13 mEq/L (7-15); Blood Urea Nitrogen* 22 mg/dL (7-30); Calcium* 8.6 mg/dL (8.4-10.6); Carbon Dioxide* 21 mmol/L (20-32); Creatinine* 1.2 mg/dL (0.5-1.5); Est. Creatinine Clearance* 55.85; Estimated Glomerular Filt Rate 66 ml/min; Glucose* 158 mg/dL (60-115); Slide Review Reflex No
[2024-11-14] MEDS: POTASSIUM CHLORIDE 10 MEQ CAPSULE ER 40 MEQ PO ×2 (13:11→20:28)
[2024-11-14] MEDS: FUROSEMIDE 10 MG/ML inj 40 MG IVP (13:11)
[2024-11-14] MEDS: PIPERACILLIN/TAZOBACTAM 3.375 GM in 0.9 % SODIUM CHLORIDE Mini-bag 100 ML IVPB ×2 (16:10→20:29)
[2024-11-14] MEDS: WARFARIN 5 MG TABLET 7.5 MG PO (18:00)
[2024-11-14] MEDS: ROSUVASTATIN CALCIUM 10 MG TABLET 20 MG PO (18:00)
--- NOTE | 2024-11-14 19:03 | PC.NURSE ---
Nursing Care Hours: [id number] Pt this shift calm and cooperative, alert and oriented. SB to independent ambulation in the room. No c/o pain. VSS. Talkative. Tolerating regular diet. Voiding, sm BM x1. ABX infused per order. Denies SOB or nausea.
--- NOTE | 2024-11-14 21:12 | PM.IMPN1 ---
Progress Note: A&P Assessment and plan (1) MRSA bacteremia: Problem details: Bacteremia with MRSA urinary infection as well. History of previous episodes of bacteremia and urinary tract infection due to MRSA, most recently March of 2024 when he received 6 weeks of Bactrim for MRSA prostatitis Status: Acute (2) Hypokalemia: Problem details: Resolved. Continue to monitor. Status: Acute (3) Abdominal pain: Problem details: -chronic, present since March 2024 -Lactate WNL and Bl Cx sent - staph aureus. EKG sinus tachy, Troponin elevated but flat at 0.13 -> 0.12. BNP 2100. IV Abx (Zosyn) started + Vancomycin d/t Hx of MRSA bacteremia. 500 cc IVF at ED -following acute worsening prior to admission, has improved. Continues to feel chronically bloated -previous workup includes HIDA scan 07/2024 chronic versus acute cholecystitis, abdomen ultrasound 06/2024 showing enlarged liver with hepatic fatty infiltration and hepatic cysts, cholelithiasis. -stool culture, O&P, GI path pending. H pylori negative -continue PPI Zosyn discontinued 11/14/2024 Status: Chronic (4) Cardiomyopathy: Problem details: EKG sinus tachy, Troponin elevated but flat at 0.13 -> 0.12. BNP 2100. CT chest shows Normal heart size. Normal caliber aorta. Atherosclerotic and coronary artery calcifications. Patient reports previous echo EF in the 40% range. I have not found this in his EMR Patient states that he never needed a diuretic Will give couple of doses of IV Lasix given notable LE peripheral edema, discomfort. Reassess Echo 11/13/2024 Final Impressions: 1. Technically limited exam. 2. Normal LV size, mildly increased wall thickness, mildly reduced global systolic function with an estimated EF of 40 - 45%. 3. Mild concentric left ventricular hypertrophy. 4. Entire inferior wall is hypokinetic. 5. Mildly enlarged left atrium. 6. Right ventricular cavity size is mildly enlarged, global systolic RV function is borderline reduced. 7. Dilated sinus of Valsalva, diameter of 4.3 cm (upper limt of normal for age, sex, and BSA is 4.2 cm*), Height Index 2.53 cm/m. 8. No significant valve disease detected. Status: Acute (5) Acute respiratory failure: Problem details: Patient denies history of COPD, he states that he only has MILES Unlikely that his cardiomyopathy is the cause for respiratory distress, no pulmonary edema on CT scan CTA negative for PE Resolved, weaned to room air Status: Resolved (6) Subtherapeutic anticoagulation: Problem details: -INR 1.27, slowly increasing. Question if taking at home as prescribed -continue warfarin, pharmacy to dose Status: Acute (7) Abdominal pain, vomiting, and diarrhea: Problem details: Lactate WNL and Bl Cx sent. EKG sinus tachy, Troponin elevated but flat at 0.13 -> 0.12. BNP 2100. IV Abx (Zosyn) started + Vancomycin d/t Hx of MRSA bacteremia got 500 cc IVF at ED. C diff ordered. Status: Acute (8) Pyelonephritis: Problem details: Pt has hx of recurrent UTIs (Ecoli). Patient's urinalysis was positive, CT abd w Cont showed: mild prominence of the left renal collecting system compared to the right and mild left ureteral wall thickening, hyperemia and mild adjacent stranding. No discrete obstructing stone. Differential considerations include underlying ureteritis/ascending infection. IV Abx (Zosyn) started + Vancomycin d/t Hx of MRSA bacteremia UC growing Staph aureus, MRSA confirmation pending. Sensitivities reviewed, vancomycin sensitive - deescalate when BC susceptibilities result Zosyn discontinued 11/14/2024. Status: Suspected (9) Mural thrombus of heart: Problem details: -R mural thrombus and PFO -chronic anticoagulation, Goal 2-3 Status: Acute (10) Diarrhea: Problem details: -persists -C diff negative -culture, O&P, and GI pathogen pending Status: Acute (11) Weakness: Problem details: Increased activity, therapy Status: Acute (12) Type 2 diabetes mellitus: Problem details: -last A1c 11.7 -continue glargine 60 units at bedtime, glucose checks and ISS ACHS Continue to monitor and adjust insulin. 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 Status: Chronic Plan Continue in-hospital pending cultures and clinical course. Infectious disease consult, likely needs PICC line when cultures are negative for 72 hours. Time Spent With Patient Total time spent: Total time spent today is 60 minutes in coordination of care and reviewing records and discussing with patient ongoing evaluation management of recurrent MRSA bacteremia and urinary tract infection. Subjective Date Seen: 11/15/24 Interval history: Admission HPI: Juma South is a 69 year old male With past medical history of Obesity, hypertension, hyperlipidemia, diabetes, cardiomyopathy (EF in the 40s per the pt), ascending aortic dilatation, on warfarin for Rt mural thrombus, came in subtherapeutic with INR at 1.27 who presents with generalized weakness, abdominal pain, diarrhea, previously has been nauseated and vomiting in addition to shortness of breath and increasing of his weight though he mentioned that he was not able to eat and drink because of poor appetite. Pt has hx of recurrent UTIs (Ecoli). Patient's urinalysis was positive, CT abd w Cont showed: mild prominence of the left renal collecting system compared to the right and mild left ureteral wall thickening, hyperemia and mild adjacent stranding. No discrete obstructing stone. Differential considerations include underlying ureteritis/ascending infection. CTA -ve for PE. Lactate WNL and Bl Cx sent. EKG sinus tachy, Troponin elevated but flat at 0.13 -> 0.12. BNP 2100. IV Abx (Zosyn) started + Vancomycin d/t Hx of MRSA bacteremia, got 500 cc IVF at ED. C diff ordered. From January to February 2024 was hospitalized for prostate abscess which led to MRSA bacteremia. Eventually had follow-up with Infectious Disease at [place]. Reports that he recovered from that episode without apparent complications. Patient reports feeling much better. No fevers. Able to eat but does report still some abdominal bloating. Having some right lower quadrant area discomfort. Able to void. Having bowel movements but loose. Exam Narrative: Exam Narrative: He is alert and appears in no distress. He is oriented to his circumstances and able to discuss recent health problems. Respirations are clear to auscultation. Cardiovascular: S1, S2, regular rate and rhythm. No murmur gallop or rub. Abdomen: Bowel sounds active. Abdomen is soft without tenderness or mass. Const: Vital Signs, click to edit/add: Vital Signs - 24 hr 11/13/24 23:00 11/13/24 23:00 11/13/24 23:00 Temperature Pulse Rate 88 Pulse Rate [Pulse Oximeter] 71 Respiratory Rate 18 Blood Pressure [Ri ght Arm] Pulse Oximetry 91 Oxygen Delivery Me thod 11/13/24 23:00 11/14/24 03:00 11/14/24 07:40 Temperature 98.1 F 98.9 F Pulse Rate 69 Pulse Rate [Pulse Oximeter] 71 64 Respiratory Rate 18 22 Blood Pressure [Ri ght Arm] 126/77 122/65 Pulse Oximetry 91 95 Oxygen Delivery Me thod Room Air Room Air 11/14/24 08:49 11/14/24 08:49 11/14/24 11:00 Temperature 98 F Pulse Rate Pulse Rate [Pulse Oximeter] 72 74 69 Respiratory Rate 18 18 Blood Pressure [Ri ght Arm] 123/63 117/80 Pulse Oximetry 93 95 Oxygen Delivery Me thod Room Air Room Air 11/14/24 15:00 11/14/24 15:00 11/14/24 15:00 Temperature Pulse Rate 70 Pulse Rate [Pulse Oximeter] 75 75 Respiratory Rate 18 24 Blood Pressure [Ri ght Arm] 117/76 Pulse Oximetry 97 Oxygen Delivery Me thod Room Air 11/14/24 19:00 Temperature 98.5 F Pulse Rate Pulse Rate [Pulse Oximeter] 76 Respiratory Rate 22 Blood Pressure [Ri ght Arm] 131/68 Pulse Oximetry 91 Oxygen Delivery Me thod Room Air Documenting provider has reviewed patient's vital signs: yes Labs Labs: Laboratory Results - last 24 hr 11/14/24 05:58 WBC 6.47 RBC 4.57 Hgb 13.4 L Hct 40.0 MCV 88 MCH 29 MCHC 34 Plt Count 143 INR 1.59 H Sodium 136 Potassium 3.2 L Chloride 102 Carbon Dioxide 21 Anion Gap 13 BUN 22 Creatinine 1.2 Estimated Creat Clear 55.85 Estimated GFR 66 Glucose 158 H Calcium 8.6
[2024-11-15] VITALS (9 sets, daily range): BP systolic 133–153; BP diastolic 66–79; PULSE 68–77; RESP 16–24; TEMP 36.6–36.9; O2SAT 89–96
[2024-11-15 00:43] LABS: Adenovirus PCR Not Detected; Astrovirus PCR Not Detected; Campylobacter PCR Not Detected; Cryptosporidium PCR Not Detected; Cyclospora cayetanensis PCR Not Detected; Entamoeba histolytica PCR Not Detected; Enteroaggregative E coli PCR Not Detected; Enteropathogenic E coli PCR Not Detected; Enterotoxigenic E coli PCR Not Detected; Giardia lamblia PCR Not Detected; Norovirus Gi/GII PCR Not Detected; Plesiomonas shig PCR Not Detected; Rotavirus A PCR Not Detected; Salmonella PCR Not Detected; Sapovirus PCR Not Detected; Shiga toxin E coli PCR Not Detected; Shigella/Enteroinvasive E coli Not Detected; Vibrio PCR Not Detected; Vibrio cholerae PCR Not Detected; Yersinia enterocolitica PCR Not Detected
[2024-11-15] MEDS: VANCOMYCIN 1.5 GM/300 ML 1.5 GM/300 ML PIGGYBACK IVPB ×2 (02:58→15:36)
--- NOTE | 2024-11-15 05:35 | PC.NURSE ---
[id number] Pt slept on and off during night, c/o being hot/cold, afebrile during shift. ambulating to br with walker, sba, tolerating activity fair, c/o feeling weak. denies pain.
[2024-11-15 06:36] LABS: Hematocrit 39.3 % (37.0-53.0); Hemoglobin* 13.1 gm/dL (13.5-17.5); Mean Corpuscular HGB Conc 33 gm/dL (32-36); Mean Corpuscular Hemoglobin 29 pg (26-34); Mean Corpuscular Volume 88 fL (80-100); Platelet Count* 164 K/uL (140-440); Red Blood Count 4.47 m/uL (4.30-5.90)
[2024-11-15 06:44] LABS: Slide Review Reflex No
[2024-11-15 06:50] LABS: Chloride* 105 mmol/L (96-114); Sodium* 138 mmol/L (135-149)
[2024-11-15 06:51] LABS: Potassium* 3.6 mmol/L (3.6-5.1)
[2024-11-15 06:53] LABS: Anion Gap 12 mEq/L (7-15); Blood Urea Nitrogen* 19 mg/dL (7-30); Carbon Dioxide* 21 mmol/L (20-32); Est. Creatinine Clearance* 67.02; Estimated Glomerular Filt Rate 82 ml/min
[2024-11-15 06:54] LABS: Calcium* 8.7 mg/dL (8.4-10.6); Glucose* 146 mg/dL (60-115)
[2024-11-15 07:14] LABS: INR 1.76 (0.91-1.10); Prothrombin Time 21.6 Seconds
[2024-11-15] MEDS: METOPROLOL TARTRATE 100 MG TABLET PO ×2 (09:00→20:38)
[2024-11-15] MEDS: INSULIN GLARGINE,HUM.REC.ANLOG 100 UNIT/ML INSULN.PEN 60 UNIT SUBCUT ×2 (09:00→20:37)
[2024-11-15] MEDS: FUROSEMIDE 10 MG/ML inj 40 MG IVP (09:00)
[2024-11-15] MEDS: AMLODIPINE 10 MG TABLET PO (09:00)
[2024-11-15] MEDS: lisinopriL 20 MG TABLET 40 MG PO (09:00)
[2024-11-15] MEDS: PANTOPRAZOLE SODIUM 40 MG INJ IVP (09:00)
[2024-11-15] MEDS: SODIUM CHLORIDE 0.9 % (FLUSH) 10 ML SYRINGE 5 ML IVF ×2 (09:01→20:39)
[2024-11-15] MEDS: INSULIN ASPART 100 UNIT/ML SUBCUT ×3 (12:39→20:38)
[2024-11-15] MEDS: WARFARIN 5 MG TABLET 7.5 MG PO (18:19)
[2024-11-15] MEDS: ROSUVASTATIN CALCIUM 10 MG TABLET 20 MG PO (18:20)
--- NOTE | 2024-11-15 19:11 | PC.NURSE ---
End of Shift: The patient is pleasant with cares. VSS on RA, no reports of pain. Voids in large amounts, although the patient does not report feeling like he fully empties his bladder. IV patent in L upper arm. SBA to BR, makes his needs known, insulin given for BG control with meals. The patient would like to know from the Dr how long he is going to be here. Contact precautions MRSA Shanel GAMBLE BSN
[2024-11-16 03:00] VITALS: BP 128/79; PULSE 69; RESP 20; TEMP 36.6; O2SAT 96
[2024-11-16] MEDS: VANCOMYCIN 1.5 GM/300 ML 1.5 GM/300 ML PIGGYBACK IVPB ×2 (03:30→17:33)
[2024-11-16 06:48] LABS: Hematocrit 37.9 % (37.0-53.0); Hemoglobin* 12.7 gm/dL (13.5-17.5); Mean Corpuscular HGB Conc 34 gm/dL (32-36); Mean Corpuscular Hemoglobin 29 pg (26-34); Mean Corpuscular Volume 87 fL (80-100); Platelet Count* 184 K/uL (140-440); Red Blood Count 4.34 m/uL (4.30-5.90); White Blood Count* 7.91 K/uL (4.50-11.00)
[2024-11-16 06:52] LABS: Slide Review Reflex No
[2024-11-16 07:06] LABS: Chloride* 104 mmol/L (96-114); Potassium* 3.4 mmol/L (3.6-5.1); Sodium* 136 mmol/L (135-149)
[2024-11-16 07:08] LABS: Blood Urea Nitrogen* 15 mg/dL (7-30); Creatinine* 0.9 mg/dL (0.5-1.5); Est. Creatinine Clearance* 67.02; Estimated Glomerular Filt Rate 94 ml/min
[2024-11-16 07:09] LABS: Anion Gap 11 mEq/L (7-15); Calcium* 8.6 mg/dL (8.4-10.6); Carbon Dioxide* 21 mmol/L (20-32); Glucose* 179 mg/dL (60-115)
[2024-11-16 07:10] VITALS: PULSE 77
[2024-11-16 07:17] LABS: INR 1.87 (0.91-1.10); Prothrombin Time 22.6 Seconds
--- NOTE | 2024-11-16 07:20 | PC.NURSE ---
: pleasant and cooperative. SBA. VSS. Tele ? NSR with first degree HB, PAC noted on tele strip. Apneic episodes noted to last 10-15 seconds, o2 sats would dip to 80s but quickly return to 90s. ?
[2024-11-16 07:35] VITALS: BP 169/79; PULSE 71; RESP 22; TEMP 36.8; O2SAT 95
[2024-11-16] MEDS: PANTOPRAZOLE SODIUM 40 MG INJ IVP (07:57)
[2024-11-16] MEDS: AMLODIPINE 10 MG TABLET PO (07:57)
[2024-11-16] MEDS: METOPROLOL TARTRATE 100 MG TABLET PO ×2 (07:57→21:24)
[2024-11-16] MEDS: lisinopriL 20 MG TABLET 40 MG PO (07:58)
[2024-11-16] MEDS: SODIUM CHLORIDE 0.9 % (FLUSH) 10 ML SYRINGE 5 ML IVF ×3 (07:58→21:24)
[2024-11-16] MEDS: INSULIN GLARGINE,HUM.REC.ANLOG 100 UNIT/ML INSULN.PEN 60 UNIT SUBCUT (07:58)
[2024-11-16] MEDS: INSULIN ASPART 100 UNIT/ML SUBCUT ×3 (08:00→21:24)
[2024-11-16] MEDS: POTASSIUM BICARB 25 MEQ EFFERVESCENT TAB PO (14:20)
[2024-11-16 15:30] VITALS: BP 144/69; PULSE 70; PULSE 71; RESP 22; TEMP 36.6; O2SAT 95
--- NOTE | 2024-11-16 16:35 | PM.IMPN1 ---
Progress Note: A&P Assessment and plan (1) MRSA bacteremia: Problem details: Bacteremia with MRSA urinary infection as well. History of previous episodes of bacteremia and urinary tract infection due to MRSA, most recently March of 2024 when he received 6 weeks of Bactrim for MRSA prostatitis Status: Acute (2) Hypokalemia: Problem details: Resolved. Continue to monitor and replace. Status: Acute (3) Abdominal pain: Problem details: -chronic, present since March 2024 -Lactate WNL and Bl Cx sent - staph aureus. EKG sinus tachy, Troponin elevated but flat at 0.13 -> 0.12. BNP 2100. IV Abx (Zosyn) started + Vancomycin d/t Hx of MRSA bacteremia. 500 cc IVF at ED -following acute worsening prior to admission, has improved. Continues to feel chronically bloated -previous workup includes HIDA scan 07/2024 chronic versus acute cholecystitis, abdomen ultrasound 06/2024 showing enlarged liver with hepatic fatty infiltration and hepatic cysts, cholelithiasis. -stool culture, O&P, GI path pending. H pylori negative -continue PPI Zosyn discontinued 11/14/2024 Status: Chronic (4) Cardiomyopathy: Problem details: EKG sinus tachy, Troponin elevated but flat at 0.13 -> 0.12. BNP 2100. CT chest shows Normal heart size. Normal caliber aorta. Atherosclerotic and coronary artery calcifications. Patient reports previous echo EF in the 40% range. I have not found this in his EMR Patient states that he never needed a diuretic Will give couple of doses of IV Lasix given notable LE peripheral edema, discomfort. Reassess Echo 11/13/2024 Final Impressions: 1. Technically limited exam. 2. Normal LV size, mildly increased wall thickness, mildly reduced global systolic function with an estimated EF of 40 - 45%. 3. Mild concentric left ventricular hypertrophy. 4. Entire inferior wall is hypokinetic. 5. Mildly enlarged left atrium. 6. Right ventricular cavity size is mildly enlarged, global systolic RV function is borderline reduced. 7. Dilated sinus of Valsalva, diameter of 4.3 cm (upper limt of normal for age, sex, and BSA is 4.2 cm*), Height Index 2.53 cm/m. 8. No significant valve disease detected. Status: Acute (5) Acute respiratory failure: Problem details: Patient denies history of COPD, he states that he only has MILES Unlikely that his cardiomyopathy is the cause for respiratory distress, no pulmonary edema on CT scan CTA negative for PE Resolved, weaned to room air Status: Resolved (6) Subtherapeutic anticoagulation: Problem details: -INR 1.27, slowly increasing. Question if taking at home as prescribed -continue warfarin, pharmacy to dose Status: Acute (7) Abdominal pain, vomiting, and diarrhea: Problem details: Lactate WNL and Bl Cx sent. EKG sinus tachy, Troponin elevated but flat at 0.13 -> 0.12. BNP 2100. IV Abx (Zosyn) started + Vancomycin d/t Hx of MRSA bacteremia got 500 cc IVF at ED. C diff ordered. Status: Acute (8) Pyelonephritis: Problem details: Pt has hx of recurrent UTIs (Ecoli). Patient's urinalysis was positive, CT abd w Cont showed: mild prominence of the left renal collecting system compared to the right and mild left ureteral wall thickening, hyperemia and mild adjacent stranding. No discrete obstructing stone. Differential considerations include underlying ureteritis/ascending infection. IV Abx (Zosyn) started + Vancomycin d/t Hx of MRSA bacteremia UC growing Staph aureus, MRSA confirmation pending. Sensitivities reviewed, vancomycin sensitive - deescalate when BC susceptibilities result Zosyn discontinued 11/14/2024. Status: Suspected (9) Mural thrombus of heart: Problem details: -R mural thrombus and PFO -chronic anticoagulation, Goal 2-3 Status: Acute (10) Diarrhea: Problem details: -persists -C diff negative -culture, O&P, and GI pathogen pending Status: Acute (11) Weakness: Problem details: Increased activity, therapy Status: Acute (12) Type 2 diabetes mellitus: Problem details: -last A1c 11.7 -continue glargine 60 units at bedtime, glucose checks and ISS ACHS Continue to monitor and adjust insulin. 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 Status: Chronic (15) BPH loc w urin obs/LUTS: Problem details: Patient is concerned about ongoing problems with slow urine flow, delayed bladder emptying, incontinence. Urologist has recently evaluated this. Status: Acute Plan PICC line is placed for long-term IV access for IV antibiotics for MRSA bacteremia. Will transition from basal only insulin to basal bolus. Will start at Lantus 50 units b.i.d. with NovoLog 20 units t.i.d. with meals plus sliding scale as needed. Continue to titrate to a more optimal basal bolus regimen. He would benefit from being back on Ozempic but he can not afford it. The following issues can be addressed in the next few days, general surgery consult for abdominal bloating and possible chronic cholecystitis, infectious disease consult regarding management of MRSA bacteremia related to UTI and possible urologic consultation related to recurrent urinary infections and lower urinary tract symptoms. Total time spent today is 55 minutes in coordination of care and discussing with patient and other providers ongoing management of these issues.. Subjective Date Seen: 11/16/24 Interval history: Admission HPI: Juma South is a 69 year old male With past medical history of Obesity, hypertension, hyperlipidemia, diabetes, cardiomyopathy (EF in the 40s per the pt), ascending aortic dilatation, on warfarin for Rt mural thrombus, came in subtherapeutic with INR at 1.27 who presents with generalized weakness, abdominal pain, diarrhea, previously has been nauseated and vomiting in addition to shortness of breath and increasing of his weight though he mentioned that he was not able to eat and drink because of poor appetite. Pt has hx of recurrent UTIs (Ecoli). Patient's urinalysis was positive, CT abd w Cont showed: mild prominence of the left renal collecting system compared to the right and mild left ureteral wall thickening, hyperemia and mild adjacent stranding. No discrete obstructing stone. Differential considerations include underlying ureteritis/ascending infection. CTA -ve for PE. Lactate WNL and Bl Cx sent. EKG sinus tachy, Troponin elevated but flat at 0.13 -> 0.12. BNP 2100. IV Abx (Zosyn) started + Vancomycin d/t Hx of MRSA bacteremia, got 500 cc IVF at ED. C diff ordered. From January to February 2024 was hospitalized for prostate abscess which led to MRSA bacteremia. Eventually had follow-up with Infectious Disease at [place]. Reports that he recovered from that episode without apparent complications. Patient reports feeling much better. No fevers. Able to eat but does report still some abdominal bloating. Having some right lower quadrant area discomfort. Able to void. Having bowel movements but loose. 11/16/2024: Patient reports still ongoing abdominal bloating. This is been going on since last summer according to the patient. I reviewed previous evaluation of this including abdominal ultrasound which showed cholelithiasis without cholecystitis and HIDA scan which showed a nonfilling gallbladder. CT scan on 11/12/2024 showed cholelithiasis without evidence of cholecystitis or ductal dilatation. Liver enzymes and lipase have been normal except for a minimal elevation of AST. He is also reporting difficulty with bladder emptying. Currently being treated for MRSA urinary infection/pyelonephritis We discussed diabetes management. He is open to trying basal bolus insulin regimen. Currently on b.i.d. Lantus 60 units and metformin. At home he takes 80 units of Lantus twice daily. He takes no short-acting insulin Exam Narrative: Exam Narrative: He is alert appears in no distress. Breathing is unlabored. Const: Vital Signs, click to edit/add: Vital Signs - 24 hr 11/15/24 20:30 11/15/24 23:00 11/15/24 23:00 Temperature 98 F 97.9 F Pulse Rate Pulse Rate [Pulse Oximeter] 76 68 Respiratory Rate 20 16 Blood Pressure [Ri ght Arm] 153/79 H 138/76 Pulse Oximetry 94 89 89 Oxygen Delivery Me thod Room Air Room Air 11/15/24 23:55 11/16/24 03:00 11/16/24 07:10 Temperature 98 F Pulse Rate 68 77 Pulse Rate [Pulse Oximeter] 69 Respiratory Rate 20 Blood Pressure [Ri ght Arm] 128/79 Pulse Oximetry 96 Oxygen Delivery Me thod Room Air 11/16/24 07:35 11/16/24 07:35 Temperature 98.2 F Pulse Rate Pulse Rate [Pulse Oximeter] 71 71 Respiratory Rate 22 22 Blood Pressure [Ri ght Arm] 169/79 H Pulse Oximetry 95 Oxygen Delivery Me thod Room Air Documenting provider has reviewed patient's vital signs: yes Labs Labs: Laboratory Results - last 24 hr 11/16/24 05:47 WBC 7.91 RBC 4.34 Hgb 12.7 L Hct 37.9 MCV 87 MCH 29 MCHC 34 Plt Count 184 INR 1.87 H Sodium 136 Potassium 3.4 L Chloride 104 Carbon Dioxide 21 Anion Gap 11 BUN 15 Creatinine 0.9 Estimated Creat Clear 67.02 Estimated GFR 94 Glucose 179 H Calcium 8.6
[2024-11-16] MEDS: WARFARIN 5 MG TABLET 7.5 MG PO (17:51)
[2024-11-16] MEDS: ROSUVASTATIN CALCIUM 10 MG TABLET 20 MG PO (17:52)
--- NOTE | 2024-11-16 18:46 | PC.NURSE ---
Pt denies pain, tolerates intake, denies nausea. PICC placed today in anticipation of 4-6 weeks of antibiotics.
[2024-11-16 19:00] VITALS: BP 166/72; PULSE 74; RESP 20; O2SAT 92
[2024-11-16] MEDS: INSULIN ASPART 100 UNIT/ML 20 UNIT SUBCUT (19:15)
[2024-11-16] MEDS: INSULIN GLARGINE,HUM.REC.ANLOG 100 UNIT/ML INSULN.PEN 50 UNIT SUBCUT (21:24)
[2024-11-16 22:55] VITALS: BP 138/61; PULSE 74; PULSE 78; RESP 20; TEMP 36.7; O2SAT 93
[2024-11-17] VITALS (9 sets, daily range): BP systolic 130–171; BP diastolic 69–89; PULSE 66–77; RESP 18–24; TEMP 36.7–36.8; O2SAT 92–95
[2024-11-17] MEDS: VANCOMYCIN 1.5 GM/300 ML 1.5 GM/300 ML PIGGYBACK IVPB ×2 (03:14→15:39)
[2024-11-17] MEDS: SODIUM CHLORIDE 0.9 % (FLUSH) 10 ML SYRINGE 5 ML IVF ×2 (03:14→09:51)
--- NOTE | 2024-11-17 05:45 | OT.MOCA ---
[id number] Pt up ind in room, friend brought in home cpap, pt used while sleeping, tolerated well. afebrile.
[2024-11-17 06:38] LABS: Chloride* 107 mmol/L (96-114); Hematocrit 38.9 % (37.0-53.0); Hemoglobin* 12.9 gm/dL (13.5-17.5); Mean Corpuscular HGB Conc 33 gm/dL (32-36); Mean Corpuscular Hemoglobin 29 pg (26-34); Mean Corpuscular Volume 88 fL (80-100); Platelet Count* 216 K/uL (140-440); Red Blood Count 4.43 m/uL (4.30-5.90); Sodium* 139 mmol/L (135-149); White Blood Count* 6.98 K/uL (4.50-11.00)
[2024-11-17 06:41] LABS: Anion Gap 7 mEq/L (7-15); Blood Urea Nitrogen* 11 mg/dL (7-30); Calcium* 8.9 mg/dL (8.4-10.6); Carbon Dioxide* 25 mmol/L (20-32); Creatinine* 0.8 mg/dL (0.5-1.5); Est. Creatinine Clearance* 67.02; Estimated Glomerular Filt Rate 97 ml/min; Glucose* 138 mg/dL (60-115)
[2024-11-17 06:45] LABS: Slide Review Reflex No
[2024-11-17 06:54] LABS: Potassium* 3.7 mmol/L (3.6-5.1)
[2024-11-17 06:56] LABS: INR 2.16 (0.91-1.10); Prothrombin Time 25.2 Seconds
[2024-11-17] MEDS: METOPROLOL TARTRATE 100 MG TABLET PO ×2 (08:39→21:48)
[2024-11-17] MEDS: lisinopriL 20 MG TABLET 40 MG PO (08:39)
[2024-11-17] MEDS: PANTOPRAZOLE SODIUM 40 MG INJ IVP (08:39)
[2024-11-17] MEDS: INSULIN GLARGINE,HUM.REC.ANLOG 100 UNIT/ML INSULN.PEN 50 UNIT SUBCUT (08:39)
[2024-11-17] MEDS: AMLODIPINE 10 MG TABLET PO (08:39)
[2024-11-17] MEDS: INSULIN ASPART 100 UNIT/ML 20 UNIT SUBCUT ×2 (09:48→12:24)
[2024-11-17] MEDS: INSULIN ASPART 100 UNIT/ML SUBCUT ×2 (12:23→21:50)
--- NOTE | 2024-11-17 16:03 | PM.IMPN1 ---
Progress Note: A&P Assessment and plan (1) MRSA bacteremia: Problem details: Bacteremia with MRSA urinary infection as well. History of previous episodes of bacteremia and urinary tract infection due to MRSA, most recently March of 2024 when he received 6 weeks of Bactrim for MRSA prostatitis. 11/17/2024: Reji Larson MD infectious disease specialist at [facility] recommends the following: Four weeks of vancomycin with trough level of 10-12. Starting after the vancomycin treat with 2 months of Bactrim for total of 3 months of treatment. Blood test monitoring: During vancomycin therapy weekly vancomycin trough level, white blood count, and twice weekly creatinine. During Bactrim therapy: Weekly creatinine and potassium and INR Hold lisinopril and potassium for the duration of Bactrim therapy. Status: Acute (2) Hypokalemia: Problem details: Resolved. Continue to monitor and replace. Status: Acute (3) Abdominal pain: Problem details: -chronic, present since March 2024 -Lactate WNL and Bl Cx sent - staph aureus. EKG sinus tachy, Troponin elevated but flat at 0.13 -> 0.12. BNP 2100. IV Abx (Zosyn) started + Vancomycin d/t Hx of MRSA bacteremia. 500 cc IVF at ED -following acute worsening prior to admission, has improved. Continues to feel chronically bloated -previous workup includes HIDA scan 07/2024 chronic versus acute cholecystitis, abdomen ultrasound 06/2024 showing enlarged liver with hepatic fatty infiltration and hepatic cysts, cholelithiasis. -stool culture, O&P, GI path pending. H pylori negative -continue PPI Zosyn discontinued 11/14/2024 Status: Chronic (4) Cardiomyopathy: Problem details: EKG sinus tachy, Troponin elevated but flat at 0.13 -> 0.12. BNP 2100. CT chest shows Normal heart size. Normal caliber aorta. Atherosclerotic and coronary artery calcifications. Patient reports previous echo EF in the 40% range. I have not found this in his EMR Patient states that he never needed a diuretic Will give couple of doses of IV Lasix given notable LE peripheral edema, discomfort. Reassess Echo 11/13/2024 Final Impressions: 1. Technically limited exam. 2. Normal LV size, mildly increased wall thickness, mildly reduced global systolic function with an estimated EF of 40 - 45%. 3. Mild concentric left ventricular hypertrophy. 4. Entire inferior wall is hypokinetic. 5. Mildly enlarged left atrium. 6. Right ventricular cavity size is mildly enlarged, global systolic RV function is borderline reduced. 7. Dilated sinus of Valsalva, diameter of 4.3 cm (upper limt of normal for age, sex, and BSA is 4.2 cm*), Height Index 2.53 cm/m. 8. No significant valve disease detected. Status: Acute (5) Acute respiratory failure: Problem details: Patient denies history of COPD, he states that he only has MILES Unlikely that his cardiomyopathy is the cause for respiratory distress, no pulmonary edema on CT scan CTA negative for PE Resolved, weaned to room air Status: Resolved (6) Subtherapeutic anticoagulation: Problem details: -INR 1.27, slowly increasing. Question if taking at home as prescribed -continue warfarin, pharmacy to dose Status: Acute (7) Abdominal pain, vomiting, and diarrhea: Problem details: Lactate WNL and Bl Cx sent. EKG sinus tachy, Troponin elevated but flat at 0.13 -> 0.12. BNP 2100. IV Abx (Zosyn) started + Vancomycin d/t Hx of MRSA bacteremia got 500 cc IVF at ED. C diff ordered. Status: Acute (8) Pyelonephritis: Problem details: Pt has hx of recurrent UTIs (Ecoli). Patient's urinalysis was positive, CT abd w Cont showed: mild prominence of the left renal collecting system compared to the right and mild left ureteral wall thickening, hyperemia and mild adjacent stranding. No discrete obstructing stone. Differential considerations include underlying ureteritis/ascending infection. IV Abx (Zosyn) started + Vancomycin d/t Hx of MRSA bacteremia UC growing Staph aureus, MRSA confirmation pending. Sensitivities reviewed, vancomycin sensitive - deescalate when BC susceptibilities result Zosyn discontinued 11/14/2024. 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 Status: Chronic (15) BPH loc w urin obs/LUTS: Problem details: Patient is concerned about ongoing problems with slow urine flow, delayed bladder emptying, incontinence. Urologist has recently evaluated this. Status: Acute Plan Continue in hospital for IV antibiotics pending outpatient IV antibiotic plan, management of transition to basal bolus insulin, management of other abdominal symptoms. Possible discharge to home tomorrow. Total time spent today is 70 minutes in coordination of care and discussing with other providers and patient plan of care Subjective Date Seen: 11/17/24 Interval history: Admission HPI: Juma South is a 69 year old male With past medical history of Obesity, hypertension, hyperlipidemia, diabetes, cardiomyopathy (EF in the 40s per the pt), ascending aortic dilatation, on warfarin for Rt mural thrombus, came in subtherapeutic with INR at 1.27 who presents with generalized weakness, abdominal pain, diarrhea, previously has been nauseated and vomiting in addition to shortness of breath and increasing of his weight though he mentioned that he was not able to eat and drink because of poor appetite. Pt has hx of recurrent UTIs (Ecoli). Patient's urinalysis was positive, CT abd w Cont showed: mild prominence of the left renal collecting system compared to the right and mild left ureteral wall thickening, hyperemia and mild adjacent stranding. No discrete obstructing stone. Differential considerations include underlying ureteritis/ascending infection. CTA -ve for PE. Lactate WNL and Bl Cx sent. EKG sinus tachy, Troponin elevated but flat at 0.13 -> 0.12. BNP 2100. IV Abx (Zosyn) started + Vancomycin d/t Hx of MRSA bacteremia, got 500 cc IVF at ED. C diff ordered. From January to February 2024 was hospitalized for prostate abscess which led to MRSA bacteremia. Eventually had follow-up with Infectious Disease at [facility]. Reports that he recovered from that episode without apparent complications. Patient reports feeling much better. No fevers. Able to eat but does report still some abdominal bloating. Having some right lower quadrant area discomfort. Able to void. Having bowel movements but loose. 11/16/2024: Patient reports still ongoing abdominal bloating. This is been going on since last summer according to the patient. I reviewed previous evaluation of this including abdominal ultrasound which showed cholelithiasis without cholecystitis and HIDA scan which showed a nonfilling gallbladder. CT scan on 11/12/2024 showed cholelithiasis without evidence of cholecystitis or ductal dilatation. Liver enzymes and lipase have been normal except for a minimal elevation of AST. He is also reporting difficulty with bladder emptying. Currently being treated for MRSA urinary infection/pyelonephritis We discussed diabetes management. He is open to trying basal bolus insulin regimen. Currently on b.i.d. Lantus 60 units and metformin. At home he takes 80 units of Lantus twice daily. He takes no short-acting insulin 11/17/2024: Patient reports doing well with ongoing sense of abdominal bloating. Mostly postprandial. Otherwise feels well. Tolerating the switch to basal bolus insulin. Plan of care is discussed in detail with the patient as well as Infectious Disease DrLucina today. See plan of care under assessment and plan Exam Narrative: Exam Narrative: He is alert and in no distress. Breathing is unlabored. Abdomen is soft with minimal right lower quadrant tenderness which is unchanged. Extremities with 1+ edema. Const: Vital Signs, click to edit/add: Vital Signs - 24 hr 11/16/24 19:00 11/16/24 22:55 11/16/24 22:55 Temperature Pulse Rate Pulse Rate [Pulse Oximeter] 74 74 Respiratory Rate 20 Blood Pressure [Le ft Arm] 166/72 H Pulse Oximetry 92 93 Oxygen Delivery Wi thod Room Air 11/16/24 22:55 11/17/24 01:05 11/17/24 03:00 Temperature 98.1 F Pulse Rate 73 Pulse Rate [Pulse Oximeter] 78 66 Respiratory Rate 20 24 Blood Pressure [Le ft Arm] 138/61 142/82 H Pulse Oximetry 93 [facility] 11/17/24 07:00 11/17/24 08:20 11/17/24 08:20 Temperature 98.3 F Pulse Rate 71 Pulse Rate [Pulse Oximeter] 74 74 Respiratory Rate 18 18 Blood Pressure [Le ft Arm] 171/89 H Pulse Oximetry 93 [facility] 11/17/24 11:00 Temperature 98.2 F Pulse Rate Pulse Rate [Pulse Oximeter] 66 Respiratory Rate 18 Blood Pressure [Le ft Arm] 130/69 Pulse Oximetry 92 Oxygen Delivery Me thod Room Air Documenting provider has reviewed patient's vital signs: yes Labs Labs: Laboratory Results - last 24 hr 11/17/24 Unknown WBC 6.98 RBC 4.43 Hgb 12.9 L Hct 38.9 MCV 88 MCH 29 MCHC 33 Plt Count 216 INR 2.16 H Sodium 139 Potassium 3.7 Chloride 107 Carbon Dioxide 25 Anion Gap 7 BUN 11 Creatinine 0.8 Estimated Creat Clear 67.02 Estimated GFR 97 Glucose 138 H Calcium 8.9
--- NOTE | 2024-11-17 16:46 | PM.EN ---
Chart Event Note Chart Event Note: Chart reviewed and spoke patient. He has had ongoing upper abdominal pain and bloating for the last several months. The pain does get worse with food. No change in his symptoms during this hospitalization. Abdominal ultrasound shows evidence of cholelithiasis. HIDA scan that was performed in July shows no filling of the gallbladder. Symptoms are suspicious for possible chronic cholecystitis. Would not recommend any intervention at this time with patient being treated for MRSA bacteremia and urinary tract infection. Recommend consultation in surgery clinic as an outpatient.
[2024-11-17] MEDS: TORSEMIDE 5 MG TABLET 10 MG PO (17:14)
[2024-11-17] MEDS: POTASSIUM CHLORIDE 10 MEQ CAPSULE ER 20 MEQ PO (17:14)
[2024-11-17] MEDS: WARFARIN 5 MG TABLET 7.5 MG PO (17:14)
[2024-11-17] MEDS: ROSUVASTATIN CALCIUM 10 MG TABLET 20 MG PO (18:34)
[2024-11-17] MEDS: INSULIN ASPART 100 UNIT/ML 26 UNIT SUBCUT (18:34)
--- NOTE | 2024-11-17 19:32 | PC.NURSE ---
End of Shift: Patient pleasant and cooperative, A&O. VSS, afebrile. SpO2 maintained above 90% on RA. Patient denies pain this shift. Tolerating diabetic diet. Sliding scale insulin given per protocol this shift. Independent in room
[2024-11-17] MEDS: INSULIN GLARGINE,HUM.REC.ANLOG 100 UNIT/ML INSULN.PEN 40 UNIT SUBCUT (21:49)
[2024-11-18] VITALS (9 sets, daily range): BP systolic 140–167; BP diastolic 67–84; PULSE 62–74; RESP 16–24; TEMP 36.6–36.8; O2SAT 90–96
[2024-11-18] MEDS: VANCOMYCIN 1.5 GM/300 ML 1.5 GM/300 ML PIGGYBACK IVPB ×2 (03:02→17:47)
[2024-11-18 07:02] LABS: Hematocrit 40.8 % (37.0-53.0); Hemoglobin* 13.5 gm/dL (13.5-17.5); Mean Corpuscular HGB Conc 33 gm/dL (32-36); Mean Corpuscular Hemoglobin 29 pg (26-34); Mean Corpuscular Volume 88 fL (80-100); Platelet Count* 266 K/uL (140-440); Red Blood Count 4.64 m/uL (4.30-5.90); White Blood Count* 6.49 K/uL (4.50-11.00)
--- NOTE | 2024-11-18 07:11 | PC.NURSE ---
End of shift summary: Pt has been A&O, afebrile and VSS. He?s independent in the room and denied pain overnight. He went back and forth with using CPAP while asleep and having it off. Reports no BM overnight. PICC in RUE patent & C/D/I. TELE read NSR with 1st degree block and BBB. Contact precautions ongoing for MRSA in blood and urine. ?
[2024-11-18 07:12] LABS: Chloride* 104 mmol/L (96-114); Sodium* 138 mmol/L (135-149)
[2024-11-18 07:13] LABS: Potassium* 3.8 mmol/L (3.6-5.1); Slide Review Reflex No
[2024-11-18 07:16] LABS: Anion Gap 8 mEq/L (7-15); Blood Urea Nitrogen* 11 mg/dL (7-30); Carbon Dioxide* 26 mmol/L (20-32); Creatinine* 0.9 mg/dL (0.5-1.5); Est. Creatinine Clearance* 67.02; Estimated Glomerular Filt Rate 94 ml/min; Glucose* 172 mg/dL (60-115)
[2024-11-18 07:26] LABS: INR 2.37 (0.91-1.10)
[2024-11-18] MEDS: AMLODIPINE 10 MG TABLET PO (08:29)
[2024-11-18] MEDS: POTASSIUM CHLORIDE 10 MEQ CAPSULE ER 20 MEQ PO (08:29)
[2024-11-18] MEDS: TORSEMIDE 5 MG TABLET 10 MG PO (08:29)
[2024-11-18] MEDS: lisinopriL 20 MG TABLET 40 MG PO (08:29)
[2024-11-18] MEDS: METOPROLOL TARTRATE 100 MG TABLET PO ×2 (08:29→21:47)
[2024-11-18] MEDS: PANTOPRAZOLE SODIUM 40 MG INJ IVP (08:29)
[2024-11-18] MEDS: INSULIN ASPART 100 UNIT/ML SUBCUT ×4 (08:30→21:48)
[2024-11-18] MEDS: SODIUM CHLORIDE 0.9 % (FLUSH) 10 ML SYRINGE 5 ML IVF ×2 (08:30)
[2024-11-18] MEDS: INSULIN ASPART 100 UNIT/ML 26 UNIT SUBCUT ×3 (08:31→17:49)
[2024-11-18] MEDS: INSULIN GLARGINE,HUM.REC.ANLOG 100 UNIT/ML INSULN.PEN 40 UNIT SUBCUT ×2 (08:32→21:49)
--- NOTE | 2024-11-18 13:36 | PC.SOCIAL ---
Addendum entered and electronically signed by Dena Lucas LCSW 11/18/24 15:30: SW faxed referral to [facility] for home infusion. SW awaiting call back with cost for patient. SW called [facility] Estimate line and left vm with patient's information to determine cost for OP infusion. SW awaiting for call back. Original Note: Discharge planning: SW met with patient to discuss home infusions. Patient states that he would feel more comfortable coming in to complete home infusions, but understands these may need to be done at home vs. coming to the hospital. Patient reports he doesn't have instructions for infusions yet, but understands that he will be watching a video and feels that this would be an appropriate learning method for him. SW discussed that there is likely a copay for home infusion, however, we don't know how much yet, as we need to wait for the home infusion company to inform us of this. SW to update patient when we have this. Patient states that the cost of the home infusion will likely be too much for him as he is on a very fixed income and won't be able to pay more than $50 a month. Patient and SW discussed MA and other resources. Patient states that he completed an MA application, but was denied. Patient utilizes community resources to support himself. SW updated provider with these concerns.
[2024-11-18 16:18] LABS: Ova and Parasite, Fecal Negative (Negative)
--- NOTE | 2024-11-18 16:27 | PM.IMPN1 ---
Progress Note: A&P Assessment and plan (1) MRSA bacteremia: Problem details: Bacteremia with MRSA urinary infection as well. History of previous episodes of bacteremia and urinary tract infection due to MRSA, most recently March of 2024 when he received 6 weeks of Bactrim for MRSA prostatitis. 11/17/2024: Reji Larson MD infectious disease specialist at [facility] recommends the following: Four weeks of vancomycin with trough level of 10-12. Starting after the vancomycin treat with 2 months of Bactrim for total of 3 months of treatment. Blood test monitoring: During vancomycin therapy weekly vancomycin trough level, white blood count, and twice weekly creatinine. During Bactrim therapy: Weekly creatinine and potassium and INR Hold lisinopril and potassium for the duration of Bactrim therapy. Status: Acute (2) Hypokalemia: Problem details: Resolved. Continue to monitor and replace. Status: Acute (3) Abdominal pain: Problem details: -chronic, present since March 2024 -Lactate WNL and Bl Cx sent - staph aureus. EKG sinus tachy, Troponin elevated but flat at 0.13 -> 0.12. BNP 2100. IV Abx (Zosyn) started + Vancomycin d/t Hx of MRSA bacteremia. 500 cc IVF at ED -following acute worsening prior to admission, has improved. Continues to feel chronically bloated -previous workup includes HIDA scan 07/2024 chronic versus acute cholecystitis, abdomen ultrasound 06/2024 showing enlarged liver with hepatic fatty infiltration and hepatic cysts, cholelithiasis. -stool culture, O&P, GI path pending. H pylori negative -continue PPI Zosyn discontinued 11/14/2024 Status: Chronic (4) Cardiomyopathy: Problem details: EKG sinus tachy, Troponin elevated but flat at 0.13 -> 0.12. BNP 2100. CT chest shows Normal heart size. Normal caliber aorta. Atherosclerotic and coronary artery calcifications. Patient reports previous echo EF in the 40% range. I have not found this in his EMR Patient states that he never needed a diuretic Will give couple of doses of IV Lasix given notable LE peripheral edema, discomfort. Reassess Echo 11/13/2024 Final Impressions: 1. Technically limited exam. 2. Normal LV size, mildly increased wall thickness, mildly reduced global systolic function with an estimated EF of 40 - 45%. 3. Mild concentric left ventricular hypertrophy. 4. Entire inferior wall is hypokinetic. 5. Mildly enlarged left atrium. 6. Right ventricular cavity size is mildly enlarged, global systolic RV function is borderline reduced. 7. Dilated sinus of Valsalva, diameter of 4.3 cm (upper limt of normal for age, sex, and BSA is 4.2 cm*), Height Index 2.53 cm/m. 8. No significant valve disease detected. Status: Acute (5) Acute respiratory failure: Problem details: Patient denies history of COPD, he states that he only has MILES Unlikely that his cardiomyopathy is the cause for respiratory distress, no pulmonary edema on CT scan CTA negative for PE Resolved, weaned to room air Status: Resolved (6) Subtherapeutic anticoagulation: Problem details: -INR 1.27, slowly increasing. Question if taking at home as prescribed -continue warfarin, pharmacy to dose Status: Acute (7) Abdominal pain, vomiting, and diarrhea: Problem details: Lactate WNL and Bl Cx sent. EKG sinus tachy, Troponin elevated but flat at 0.13 -> 0.12. BNP 2100. IV Abx (Zosyn) started + Vancomycin d/t Hx of MRSA bacteremia got 500 cc IVF at ED. C diff ordered. Status: Acute (8) Pyelonephritis: Problem details: Pt has hx of recurrent UTIs (Ecoli). Patient's urinalysis was positive, CT abd w Cont showed: mild prominence of the left renal collecting system compared to the right and mild left ureteral wall thickening, hyperemia and mild adjacent stranding. No discrete obstructing stone. Differential considerations include underlying ureteritis/ascending infection. IV Abx (Zosyn) started + Vancomycin d/t Hx of MRSA bacteremia UC growing Staph aureus, MRSA confirmation pending. Sensitivities reviewed, vancomycin sensitive - deescalate when BC susceptibilities result Zosyn discontinued 11/14/2024. Status: Suspected (9) Mural thrombus of heart: Problem details: -R mural thrombus and PFO -chronic anticoagulation, Goal 2-3 Concern about noncompliance with warfarin therapy. He is on warfarin 7.5 mg daily here in his INR is continuing to climb. Consider switching to apixaban if finances allow Status: Acute (10) Diarrhea: Problem details: Resolved. C diff negative Status: Acute (11) Weakness: Problem details: Improved Status: Acute (12) Type 2 diabetes mellitus: Problem details: -last A1c 11.7 Now on basal bolus insulin with ongoing adjustments Status: Chronic (13) MRSA (methicillin resistant Staphylococcus aureus): Problem details: -h/o MRSA bacteremia/endocarditis in 2017 & MRSA prostate abscess 01/2024 Status: Acute (14) Sleep apnea: Problem details: See scanned EMILY 01/21/24 Nocturnal Ox . Status: Chronic (15) BPH loc w urin obs/LUTS: Problem details: Patient is concerned about ongoing problems with slow urine flow, delayed bladder emptying, incontinence. Urologist has recently evaluated this. Status: Acute Plan Continue to work on an outpatient IV antibiotic plan. Discharge to home when that plan has been finalized. In the meantime continue to evaluate and manage other chronic medical problems, especially diabetes and anticoagulation. Time Spent With Patient Total time spent: Total time spent today is 60 minutes in coordination of care and discussing with patient and other providers outpatient IV antibiotic plan Subjective Date Seen: 11/18/24 Interval history: Admission HPI: Juma South is a 69 year old male With past medical history of Obesity, hypertension, hyperlipidemia, diabetes, cardiomyopathy (EF in the 40s per the pt), ascending aortic dilatation, on warfarin for Rt mural thrombus, came in subtherapeutic with INR at 1.27 who presents with generalized weakness, abdominal pain, diarrhea, previously has been nauseated and vomiting in addition to shortness of breath and increasing of his weight though he mentioned that he was not able to eat and drink because of poor appetite. Pt has hx of recurrent UTIs (Ecoli). Patient's urinalysis was positive, CT abd w Cont showed: mild prominence of the left renal collecting system compared to the right and mild left ureteral wall thickening, hyperemia and mild adjacent stranding. No discrete obstructing stone. Differential considerations include underlying ureteritis/ascending infection. CTA -ve for PE. Lactate WNL and Bl Cx sent. EKG sinus tachy, Troponin elevated but flat at 0.13 -> 0.12. BNP 2100. IV Abx (Zosyn) started + Vancomycin d/t Hx of MRSA bacteremia, got 500 cc IVF at ED. C diff ordered. From January to February 2024 was hospitalized for prostate abscess which led to MRSA bacteremia. Eventually had follow-up with Infectious Disease at [facility]. Reports that he recovered from that episode without apparent complications. Patient reports feeling much better. No fevers. Able to eat but does report still some abdominal bloating. Having some right lower quadrant area discomfort. Able to void. Having bowel movements but loose. 11/16/2024: Patient reports still ongoing abdominal bloating. This is been going on since last summer according to the patient. I reviewed previous evaluation of this including abdominal ultrasound which showed cholelithiasis without cholecystitis and HIDA scan which showed a nonfilling gallbladder. CT scan on 11/12/2024 showed cholelithiasis without evidence of cholecystitis or ductal dilatation. Liver enzymes and lipase have been normal except for a minimal elevation of AST. He is also reporting difficulty with bladder emptying. Currently being treated for MRSA urinary infection/pyelonephritis We discussed diabetes management. He is open to trying basal bolus insulin regimen. Currently on b.i.d. Lantus 60 units and metformin. At home he takes 80 units of Lantus twice daily. He takes no short-acting insulin 11/17/2024: Patient reports doing well with ongoing sense of abdominal bloating. Mostly postprandial. Otherwise feels well. Tolerating the switch to basal bolus insulin. Plan of care is discussed in detail with the patient as well as Infectious Disease Dr. today. See plan of care under assessment and plan 11/18/2024: Patient reports doing fairly well today. He has no new concerns. Anxious to go home. Has ongoing concerns about financial concerns about outpatient treatment. Exam Narrative: Exam Narrative: He is alert no distress. Moving in the room without discomfort. No respiratory distress. Const: Vital Signs, click to edit/add: Vital Signs - 24 hr 11/17/24 16:38 11/17/24 19:00 11/17/24 23:00 Temperature 98.1 F Pulse Rate 71 Pulse Rate [Pulse Oximeter] 73 77 Respiratory Rate 18 18 Blood Pressure [Le ft Arm] 151/76 H Pulse Oximetry 94 Oxygen Delivery Me thod Room Air 11/17/24 23:00 11/17/24 23:00 11/18/24 03:00 Temperature 97.9 F Pulse Rate Pulse Rate [Pulse Oximeter] 67 Respiratory Rate 20 20 24 Blood Pressure [Le ft Arm] 151/82 H Pulse Oximetry 92 Oxygen Delivery Me thod CPAP Room Air 11/18/24 07:00 11/18/24 08:21 11/18/24 08:21 Temperature Pulse Rate 71 Pulse Rate [Pulse Oximeter] 72 72 Respiratory Rate 16 18 Blood Pressure [Le ft Arm] 167/82 H Pulse Oximetry 94 Oxygen Delivery Me thod Room Air 11/18/24 11:00 11/18/24 15:00 11/18/24 15:00 Temperature Pulse Rate Pulse Rate [Pulse Oximeter] 62 62 72 Respiratory Rate 20 20 20 Blood Pressure [Le ft Arm] 152/72 H 144/84 H Pulse Oximetry 96 94 Oxygen Delivery Me thod Room Air Room Air 11/18/24 16:00 Temperature Pulse Rate 69 Pulse Rate [Pulse Oximeter] Respiratory Rate Blood Pressure [Le ft Arm] Pulse Oximetry Oxygen Delivery Me thod Documenting provider has reviewed patient's vital signs: yes Labs Labs: Laboratory Results - last 24 hr 11/13/24 11/17/24 11/18/24 01:00 Unknown 12:07 WBC RBC Hgb Hct MCV MCH MCHC Plt Count INR Sodium Potassium Chloride Carbon Dioxide Anion Gap BUN Creatinine Estimated Creat Clear Estimated GFR Glucose Calcium Vancomycin Trough 29.4 H 15.7 Ova & Parasites Negative 11/18/24 Unknown WBC 6.49 RBC 4.64 Hgb 13.5 Hct 40.8 MCV 88 MCH 29 MCHC 33 Plt Count 266 INR 2.37 H Sodium 138 Potassium 3.8 Chloride 104 Carbon Dioxide 26 Anion Gap 8 BUN 11 Creatinine 0.9 Estimated Creat Clear 67.02 Estimated GFR 94 Glucose 172 H Calcium 9.0 Vancomycin Trough Ova & Parasites
[2024-11-18] MEDS: ROSUVASTATIN CALCIUM 10 MG TABLET 20 MG PO (17:46)
[2024-11-18] MEDS: WARFARIN 5 MG TABLET 7.5 MG PO (17:46)
--- NOTE | 2024-11-18 19:48 | PC.NURSE ---
Nursing Care Hours: [id number] Pt this shift calm and cooperative. Alert and oriented. No c/o pain. VSS. Independent in room. Voiding. Reported three formed BM. PICC patent, dressing CDI. Insulin given per schedule and sliding scale.
[2024-11-19] MEDS: SODIUM CHLORIDE 0.9 % (FLUSH) 10 ML SYRINGE 5 ML IVF ×2 (02:02→09:44)
[2024-11-19 03:00] VITALS: BP 135/75; PULSE 65; RESP 18; TEMP 36.6; O2SAT 94
[2024-11-19 06:19] LABS: Hematocrit 41.7 % (37.0-53.0); Hemoglobin* 13.8 gm/dL (13.5-17.5); Mean Corpuscular HGB Conc 33 gm/dL (32-36); Mean Corpuscular Hemoglobin 29 pg (26-34); Mean Corpuscular Volume 88 fL (80-100); Platelet Count* 308 K/uL (140-440); Red Blood Count 4.72 m/uL (4.30-5.90); White Blood Count* 7.29 K/uL (4.50-11.00)
[2024-11-19 06:25] LABS: Slide Review Reflex No
[2024-11-19 06:26] LABS: Chloride* 105 mmol/L (96-114); Potassium* 4.2 mmol/L (3.6-5.1)
[2024-11-19 06:28] LABS: INR 2.32 (0.91-1.10); Prothrombin Time 26.6 Seconds
[2024-11-19 06:29] LABS: Blood Urea Nitrogen* 14 mg/dL (7-30); Calcium* 9.3 mg/dL (8.4-10.6); Carbon Dioxide* 26 mmol/L (20-32); Creatinine* 0.9 mg/dL (0.5-1.5); Est. Creatinine Clearance* 67.02; Estimated Glomerular Filt Rate 94 ml/min; Glucose* 167 mg/dL (60-115)
[2024-11-19] MEDS: VANCOMYCIN 1.5 GM/300 ML 1.5 GM/300 ML PIGGYBACK IVPB ×2 (06:33→17:35)
--- NOTE | 2024-11-19 06:34 | PC.NURSE ---
Pt doing well over night. VSS. He is up I in his room. PICC line drsg is CDI. PICC Flushes and draws without problems. Is hoping to go home today with IV abx. Pt is voiding well. Is incontinent at times.
[2024-11-19 06:40] LABS: Anion Gap 9 mEq/L (7-15); Sodium* 140 mmol/L (135-149)
[2024-11-19] MEDS: POTASSIUM CHLORIDE 10 MEQ CAPSULE ER 20 MEQ PO (08:01)
[2024-11-19] MEDS: TORSEMIDE 5 MG TABLET 10 MG PO (08:01)
[2024-11-19] MEDS: INSULIN ASPART 100 UNIT/ML 30 UNIT SUBCUT ×3 (08:01→17:29)
[2024-11-19] MEDS: INSULIN ASPART 100 UNIT/ML SUBCUT ×3 (08:05→17:30)
[2024-11-19 08:10] VITALS: BP 142/64; PULSE 66; RESP 20; TEMP 36.8; O2SAT 92
[2024-11-19 09:12] VITALS: PULSE 68
[2024-11-19] MEDS: METOPROLOL TARTRATE 100 MG TABLET PO (09:43)
[2024-11-19] MEDS: AMLODIPINE 10 MG TABLET PO (09:43)
[2024-11-19] MEDS: PANTOPRAZOLE SODIUM 40 MG INJ IVP (09:43)
[2024-11-19] MEDS: lisinopriL 20 MG TABLET 40 MG PO (09:44)
[2024-11-19] MEDS: INSULIN GLARGINE,HUM.REC.ANLOG 100 UNIT/ML INSULN.PEN 40 UNIT SUBCUT (09:44)
[2024-11-19 11:12] VITALS: BP 139/68; PULSE 67; RESP 24; TEMP 36.7; O2SAT 93
--- NOTE | 2024-11-19 12:58 | P.DS_ITS ---
DS: Providers Provider Date Seen: 11/19/24 Date of admission: 11/12/24 22:14 Primary care physician: Romeo Mendez MD Admitting Clinician: Kassandra Campo MD Attending Physician on discharge: Jose Stevens MD Date of Discharge: 11/19/24 DS: Diagnosis Discharge Diagnosis (1) MRSA bacteremia: Status: Acute Problem details: Bacteremia with MRSA urinary infection as well. History of previous episodes of bacteremia and urinary tract infection due to MRSA, most recently March of 2024 when he received 6 weeks of Bactrim for MRSA prostatitis. 11/17/2024: Reji Larson MD infectious disease specialist at [place] recommends the following: Four weeks of vancomycin with trough level of 10-12. Starting after the vancomycin, treat with 2 months of Bactrim for total of 3 months of treatment. Blood test monitoring: During vancomycin therapy weekly vancomycin trough level, white blood count, potassium and twice weekly creatinine. During Bactrim therapy: Weekly creatinine and potassium and INR Hold lisinopril and potassium for the duration of Bactrim therapy. Outpatient follow-up with primary care in [address] Larson in 3 weeks (2) Hypokalemia: Status: Acute Problem details: Resolved. Continue to monitor and replace. (3) Abdominal pain: Status: Chronic Problem details: -chronic, present since March 2024 Not clearly associated with current MRSA infection. Previous evaluation for biliary disease includes ultrasound and CT showing gallstones without cholecystitis or obstruction. HIDA scan showed nonfilling gallbladder. Consider outpatient general surgery consultation after recovering from MRSA bacteremia (4) Cardiomyopathy: Status: Acute Problem details: EKG sinus tachy, Troponin elevated but flat at 0.13 -> 0.12. BNP 2100. CT chest shows Normal heart size. Normal caliber aorta. Atherosclerotic and coronary artery calcifications. Patient reports previous echo EF in the 40% range. I have not found this in his EMR Patient states that he never needed a diuretic Will give couple of doses of IV Lasix given notable LE peripheral edema, d iscomfort. Reassess Echo 11/13/2024 Final Impressions: 1. Technically limited exam. 2. Normal LV size, mildly increased wall thickness, mildly reduced global systolic function with an estimated EF of 40 - 45%. 3. Mild concentric left ventricular hypertrophy. 4. Entire inferior wall is hypokinetic. 5. Mildly enlarged left atrium. 6. Right ventricular cavity size is mildly enlarged, global systolic RV function is borderline reduced. 7. Dilated sinus of Valsalva, diameter of 4.3 cm (upper limt of normal for age, sex, and BSA is 4.2 cm*), Height Index 2.53 cm/m. 8. No significant valve disease detected. (5) Acute respiratory failure: Status: Resolved Problem details: Patient denies history of COPD, he states that he only has MILES Unlikely that his cardiomyopathy is the cause for respiratory distress, no pulmonary edema on CT scan CTA negative for PE Resolved, weaned to room air (6) Subtherapeutic anticoagulation: Status: Acute Problem details: -INR 1.27, slowly increasing. Question if taking at home as prescribed -continue warfarin. Close outpatient monitoring with current antibiotic therapy plan (7) Abdominal pain, vomiting, and diarrhea: Status: Acute Problem details: Had acute gastrointestinal illness that has resolved. (8) Pyelonephritis: Status: Suspected Problem details: Pt has hx of recurrent UTIs (Ecoli). Patient's urinalysis was positive, CT abd w Cont showed: mild prominence of the left renal collecting system compared to the right and mild left ureteral wall thickening, hyperemia and mild adjacent stranding. No discrete obstructing stone. Differential considerations include underlying ureteritis/ascending infection. IV Abx (Zosyn) started + Vancomycin d/t Hx of MRSA bacteremia UC growing Staph aureus, MRSA confirmation pending. Sensitivities reviewed, vancomycin sensitive - deescalate when BC susceptibilities result Zosyn discontinued 11/14/2024. (9) Mural thrombus of heart: Status: Acute Problem details: -R mural thrombus and PFO -chronic anticoagulation, Goal 2-3 Concern about noncompliance with warfarin therapy. He is on warfarin 7.5 mg daily here in his INR is continuing to climb. Consider switching to apixaban if finances allow (10) Diarrhea: Status: Acute Problem details: Resolved. C diff negative (11) Weakness: Status: Acute Problem details: Improved (12) Type 2 diabetes mellitus: Status: Chronic Problem details: -last A1c 11.7 Now on basal bolus insulin with ongoing adjustments. 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 (15) BPH loc w urin obs/LUTS: Status: Acute Problem details: Patient is concerned about ongoing problems with slow urine flow, delayed bladder emptying, incontinence. Urologist has recently evaluated this. DS: Summary Hospital Course Hospital Course: Admission HPI: Juma South is a 69 year old male With past medical history of Obesity, hypertension, hyperlipidemia, diabetes, cardiomyopathy (EF in the 40s per the pt), ascending aortic dilatation, on warfarin for Rt mural thrombus, came in subtherapeutic with INR at 1.27 who presents with generalized weakness, abdominal pain, diarrhea, previously has been nauseated and vomiting in addition to shortness of breath and increasing of his weight though he mentioned that he was not able to eat and drink because of poor appetite. Pt has hx of recurrent UTIs (Ecoli). Patient's urinalysis was positive, CT abd w Cont showed: mild prominence of the left renal collecting system compared to the right and mild left ureteral wall thickening, hyperemia and mild adjacent stranding. No discrete obstructing stone. Differential considerations include underlying ureteritis/ascending infection. CTA -ve for PE. Lactate WNL and Bl Cx sent. EKG sinus tachy, Troponin elevated but flat at 0.13 -> 0.12. BNP 2100. IV Abx (Zosyn) started + Vancomycin d/t Hx of MRSA bacteremia, got 500 cc IVF at ED. C diff ordered. From January to February 2024 was hospitalized for prostate abscess which led to MRSA bacteremia. Eventually had follow-up with Infectious Disease at [place]. Reports that he recovered from that episode without apparent complications. Patient reports feeling much better. No fevers. Able to eat but does report still some abdominal bloating. Having some right lower quadrant area discomfort. Able to void. Having bowel movements but loose. 11/16/2024: Patient reports still ongoing abdominal bloating. This is been going on since last summer according to the patient. I reviewed previous evaluation of this including abdominal ultrasound which showed cholelithiasis without cholecystitis and HIDA scan which showed a nonfilling gallbladder. CT scan on 11/12/2024 showed cholelithiasis without evidence of cholecystitis or ductal dilatation. Liver enzymes and lipase have been normal except for a minimal elevation of AST. He is also reporting difficulty with bladder emptying. Currently being treated for MRSA urinary infection/pyelonephritis. Had urology evaluation about 2 weeks prior to admission We discussed diabetes management. He is open to trying basal/bolus insulin regimen. Currently on b.i.d. Lantus 60 units and metformin. At home he takes 80 units of Lantus twice daily. He takes no short-acting insulin 11/17/2024: Patient reports doing well with ongoing sense of abdominal bloating. Mostly postprandial. Otherwise feels well. Tolerating the switch to basal bolus insulin. Plan of care is discussed in detail with the patient as well as Infectious Disease Dr. today. See plan of care under assessment and plan 11/18/2024: Patient reports doing fairly well today. He has no new concerns. Anxious to go home. Has ongoing concerns about financial concerns about outpatient treatment. 11/19/2024: Patient will be discharged to home today with detailed outpatient plan noted above Status at Discharge Functional status at discharge: uses cane/walker Overall status at discharge: patient is back to baseline Time Spent with Patient Time attestation: Total time spent providing and/or coordinating discharge services: 60 minutes Exam Narrative: Exam Narrative: He is alert and appears in no distress. Breathing is unlabored. Mood and affec t are bright. Const: Vital Signs, click to edit/add: Vital Signs - 24 hr 11/18/24 15:00 11/18/24 15:00 11/18/24 16:00 Temperature Pulse Rate 69 Pulse Rate [Pulse Oximeter] 62 72 Respiratory Rate 20 20 Blood Pressure [Le ft Arm] 144/84 H Pulse Oximetry 94 Oxygen Delivery Me thod Room Air 11/18/24 20:00 11/18/24 20:17 11/18/24 23:00 Temperature Pulse Rate 73 62 Pulse Rate [Pulse Oximeter] 74 Respiratory Rate 16 Blood Pressure [Le ft Arm] 140/71 H Pulse Oximetry 94 Oxygen Delivery Me thod Room Air 11/18/24 23:00 11/18/24 23:00 11/19/24 03:00 Temperature 98.2 F 97.8 F Pulse Rate Pulse Rate [Pulse Oximeter] 69 65 Respiratory Rate 16 18 Blood Pressure [Le ft Arm] 142/67 H 135/75 Pulse Oximetry 91 90 94 Oxygen Delivery Hi thod Room Air Room Air 11/19/24 08:10 11/19/24 08:10 11/19/24 09:12 Temperature 98.3 F Pulse Rate 68 Pulse Rate [Pulse Oximeter] 66 66 Respiratory Rate 20 20 Blood Pressure [Le ft Arm] 142/64 H Pulse Oximetry 92 Oxygen Delivery Me thod Room Air 11/19/24 11:12 Temperature 98.1 F Pulse Rate Pulse Rate [Pulse Oximeter] 67 Respiratory Rate 24 Blood Pressure [Le ft Arm] 139/68 Pulse Oximetry 93 Oxygen Delivery Me thod Room Air Documenting provider has reviewed patient's vital signs: yes DS: Data Data Completed and Pending Labs on day of discharge: Labs from last 24 hours 11/19/24 11/18/24 11/13/24 05:57 12:07 01:00 WBC 7.29 RBC 4.72 Hgb 13.8 Hct 41.7 MCV 88 MCH 29 MCHC 33 Plt Count 308 INR 2.32 H Sodium 140 Potassium 4.2 Chloride 105 Carbon Dioxide 26 Anion Gap 9 BUN 14 Creatinine 0.9 Estimated Creat Clear 67.02 Estimated GFR 94 Glucose 167 H Calcium 9.3 Vancomycin Trough 15.7 Ova & Parasites Negative Imaging CT scan - chest: Radiologist's impression: INDICATION: .ABD PAIN, VERY SOB TECHNIQUE: CT chest PE was acquired with 100 cc Omnipaque 350 IV contrast. COMPARISON: None FINDINGS: Pulmonary Arteries: Suboptimal contrast bolus timing acquisition degrades evaluation of the distal segmental and subsegmental pulmonary arteries. No discrete large central or proximal segmental pulmonary embolus. No pulmonary hypertension or right ventricular strain. Heart and Mediastinum: The visualized portions of the thyroid are normal. No axillary or supraclavicular lymphadenopathy. No mediastinal, hilar or retrocrural lymphadenopathy. Normal heart size. Normal caliber aorta. Atherosclerotic and coronary artery calcifications. Lungs and Airways: Calcified granulomas. Scattered linear opacities likely subsegmental atelectasis. No mass or consolidation. No endoluminal lesion. Pleura: The pleural spaces are normal. Abdomen: Refer to abdominal CT of same day. Bones and soft tissues: The skeletal structures and soft tissues of the chest wall are unremarkable. IMPRESSION: 1. Suboptimal contrast bolus timing acquisition degrades evaluation of the distal segmental and subsegmental pulmonary arteries. No discrete large central or proximal segmental pulmonary embolus. 2. No mass or consolidation. CT scan - abdomen: Radiologist's impression: INDICATION: ABD PAIN, VERY SOB TECHNIQUE: CT abdomen and pelvis acquired with 134 cc Isovue 370 IV contrast. COMPARISON: August 2023. FINDINGS: Lower chest: Report of chest CT same day. ABDOMEN: Liver: Normal enhancement. Hepatic cysts. Subcentimeter hypodensities are too small to characterize however statistically represent cysts. Surgical clips abutting the right hepatic capsule. Gallbladder and biliary: Cholelithiasis in an otherwise normal gallbladder. Normal caliber bile ducts. Spleen: Normal size and enhancement. Pancreas: Normal enhancement without peripancreatic inflammatory changes or ductal dilatation. Adrenal glands: Normal adrenal glands. Kidneys and ureters: Subtle delayed nephrogram of the left kidney compared to the right. Associated mild prominence of the left renal collecting system compared to the right and mild left ureteral wall thickening, hyperemia and mild adjacent stranding. No discrete obstructing stone. Normal enhancement of the right kidney. Subcentimeter hypodensities are too small to characterize however statistically represent cysts. GI tract: The stomach is relatively decompressed. Normal caliber small and large bowel loops. The appendix is not definitively visualized. Colonic diverticulosis without diverticulitis. Vascular structures: Normal caliber aorta with atherosclerotic calcifications. Lymph nodes: No lymphadenopathy in the abdomen or pelvis by size criteria. Peritoneum: No free air, free fluid, or focal drainable fluid collection. PELVIS: Genitourinary system: Circumferential wall thickening of the urinary bladder. This may be secondary to muscular hypertrophy in the setting of chronic outlet obstruction from an enlarged prostate. Changes of TURP. SKELETAL STRUCTURES AND SOFT TISSUES: Lumbar spondylosis. IMPRESSION: Subtle delayed nephrogram of the left kidney compared to the right. Associated mild prominence of the left renal collecting system compared to the right and mild left ureteral wall thickening, hyperemia and mild adjacent stranding. No discrete obstructing stone. Differential considerations include underlying ureteritis/ascending infection. Chest x-ray: Radiologist's impression: INDICATION: PICC placement. TECHNIQUE: Chest 1 view(s) COMPARISON: Chest radiograph dated 11/12/2024. FINDINGS/IMPRESSION: Right PICC tip projects over the superior cavoatrial junction. Stable cardiomediastinal silhouette and pulmonary vasculature. Lungs are hypoinflated, no large focal consolidation. Left costophrenic angle excluded from field of view. No significant layering pleural effusion. No pneumothorax identified. Discharge Plan Discharge Disposition: Home, Self-Care Date of Admission: 11/12/24 22:14 Attending Provider on Discharge: Dayton Stevens Consulting Providers: Lary Arita; Michelle Rodriguez Primary Care Provider: Romeo Mendez Condition: Improved Anticipated Discharge Date/Time: 11/19/24 20:31 Discharge Medications: New potassium chloride 10 mEq Capsule, Extended Release 20 meq PO DAILYWM Qty: 60 0RF torsemide 10 mg tablet 10 mg PO DAILY Qty: 30 2RF insulin aspart U-100 [Novolog FlexPen U-100 Insulin] 100 unit/mL (3 mL) insulin pen 25 unit subcut TIDWMEAL Qty: 27 3RF Continued rosuvastatin 20 mg tablet 20 mg PO QPM omega 1-exf-ods-fish oil [Fish Oil] 1,000 (120-180) mg capsule 1 cap PO DAILY multivitamin [Daily Multi-Vitamin] Tablet 1 tab PO DAILY amlodipine 10 mg tablet 10 mg PO DAILY lisinopril 40 mg tablet 40 mg PO DAILY metoprolol tartrate 100 mg tablet 100 mg PO BID Qty: 90 3RF metformin 500 mg tablet extended release 24 hr 1,000 mg PO BID Qty: 90 2RF warfarin 5 mg tablet 7.5 mg PO DAILY Qty: 60 0RF Changed insulin glargine [Lantus Solostar U-100 Insulin] 100 unit/mL (3 mL) insulin pen 30 unit subcut BID Qty: 30 2RF Discharge Orders: Discharge Order (Routine); Ordered 11/19/24 Ordered By: Dayton Stevens Additional Instructions: See Dr. Larson, infectious disease, in the first 3 days of December for an appointment. See Dr. Mendez in 1 week. Return to the hospital for IV antibiotic, vancomycin, every 12 hours through December 11. Current plan is to come at 6:00 a.m. and 6:00 p.m. Twice a week you will get blood tests . Starting December 12 take Bactrim twice a day for 2 months. While you are taking Bactrim you should stop taking lisinopril and potassium. He will need weekly blood tests at this time as well Activity Level: No Restrictions Discharge Diet: Diabetic Follow Up Appointments: Reji Larson MD [Other] (Follow-up in 3 weeks, before December 12) Daniella Ramírez MD [Staff Physician] - Romeo Mendez MD [Primary Care Provider] - (Follow-up in 1 week) Forms: [employer] Info Instructions
--- NOTE | 2024-11-19 14:49 | PC.SOCIAL ---
Discharge Planning: POWER spoke with [facility] to determine the copayment for patient to receive services. fabric worker foreman states that there is a $90 cost for supplies and then weekly cost of $166 for medications. fabric worker foreman estimates that the daily cost would be around $37. POWER was informed that [place] [phone] is the worker assigned to this case. POWER emailed [facility] team with patient's information to determine the cost for OP infusion. POWER received update from Shivani, who states that patient's OOP is $450 a day until he reaches his OOP max. POWER discussed this with patient and patient would like to move forward with OP infusion. SW spoke with patient to determine if there was any stress, anxiety, or other feelings around cost/plan of care. Patient states no concerns at this time. POWER updated provider. SW available if other needs arise.
[2024-11-19 14:51] VITALS: BP 140/72; PULSE 67; RESP 24; TEMP 36.9; O2SAT 92
[2024-11-19] MEDS: WARFARIN 5 MG TABLET 7.5 MG PO (16:40)
[2024-11-19] MEDS: ROSUVASTATIN CALCIUM 10 MG TABLET 20 MG PO (17:34)
--- NOTE | 2024-11-19 18:24 | PC.NURSE ---
End of Shift: Patient pleasant and cooperative. Patient vitally stable, lungs clear, BS WNL, PICC currently running antibiotic. Patient with +1 pitting edema, and intermittent dry cough.Patient denies pain and is independent in room. Patient tolerating regular diet, urinating well, and had 1 BM. Patient also showered today. Patient's tele this AM was first degree HB with BBB. Blood sugars 178, 190, 153.
--- NOTE | 2024-11-19 19:22 | PC.NURSE ---
Discharge paper work and belongings sheet signed, patient had no further questions regarding discharge. Patient is awaiting ride home.
--- NOTE | 2024-11-19 19:31 | PC.NURSE ---
Addendum entered by Ghazal Velez RN 11/19/24 19:33: correction left at 1930. Original Note: Patient left to home by wheelchair at 1830.
== END 2024-11-19 19:30 | disposition home or self-care (01) | DRG 871 ==
LOC: ED 19:22 → MEDSURG 20:25
PROVIDERS: Family Medicine; Physician Assistant; Admitting Provider Student in an Organized Health Care Education/Training Program; Emergency Provider Family Medicine; PCP Internal Medicine; Visit Provider Student in an Organized Health Care Education/Training Program
DX: R78.81 Bacteremia (principal); J96.01 Acute respiratory failure with hypoxia; N10 Acute pyelonephritis; I43 Cardiomyopathy in diseases classified elsewhere; K80.10 Calculus of gallbladder with chronic cholecystitis without obstruction; Z68.41 Body mass index [BMI] 40.0-44.9, adult; B95.62 Methicillin resistant Staphylococcus aureus infection as the cause of diseases classified elsewhere; E87.6 Hypokalemia; I13.10 Hypertensive heart and chronic kidney disease without heart failure, with stage 1 through stage 4 chronic kidney disease, or unspecified chronic kidney disease; E11.22 Type 2 diabetes mellitus with diabetic chronic kidney disease; N18.2 Chronic kidney disease, stage 2 (mild); Z79.84 Long term (current) use of oral hypoglycemic drugs; Z79.4 Long term (current) use of insulin; R19.7 Diarrhea, unspecified; E86.0 Dehydration; Z87.440 Personal history of urinary (tract) infections; G47.33 Obstructive sleep apnea (adult) (pediatric); R79.1 Abnormal coagulation profile; G89.29 Other chronic pain; R10.9 Unspecified abdominal pain; D69.6 Thrombocytopenia, unspecified; K76.0 Fatty (change of) liver, not elsewhere classified; K76.89 Other specified diseases of liver; R11.2 Nausea with vomiting, unspecified; N40.1 Benign prostatic hyperplasia with lower urinary tract symptoms; N39.498 Other specified urinary incontinence; E66.01 Morbid (severe) obesity due to excess calories; R39.14 Feeling of incomplete bladder emptying; I51.3 Intracardiac thrombosis, not elsewhere classified; I77.819 Aortic ectasia, unspecified site; Z79.01 Long term (current) use of anticoagulants; E78.2 Mixed hyperlipidemia
CPT/HCPCS: 36415; 36573; 51798; 71045; 71275; 74177; 80048; 80053; 80076; 80202; 81001; 82150; 82962; 83605; 83735; 83880; 84484; 85025; 85027; 85610; 86140; 87040; 87045; 87046; 87086; 87177; 87186; 87209; 87338; 87427; 87493; 87505; 87631; 87800; 93005; 93306; 94761; 97116; 97161; 97165; 99285; A4221; A9270; C1751; J1815; J1940; J2470; J2543; J3372; J7030; Q9967

== ENCOUNTER 2024-12-11 17:44 | Outpatient (RCR) | payer MEDICARE, SELFPAY ==
[2024-11-20 06:15] VITALS: BP 176/71; PULSE 89; RESP 22; TEMP 36.4; O2SAT 96
[2024-11-20] MEDS: VANCOMYCIN 1.5 GM/300 ML 1.5 GM/300 ML PIGGYBACK IVPB ×2 (06:19→18:02)
[2024-11-20] MEDS: SODIUM CHLORIDE 0.9 % (FLUSH) 10 ML SYRINGE IVF ×3 (08:25→19:47)
[2024-11-20 18:08] VITALS: BP 145/69; PULSE 97; RESP 20; TEMP 36.6; O2SAT 95
[2024-11-21] MEDS: VANCOMYCIN 1.5 GM/300 ML 1.5 GM/300 ML PIGGYBACK IVPB ×2 (06:09→18:00)
[2024-11-21] MEDS: SODIUM CHLORIDE 0.9 % (FLUSH) 10 ML SYRINGE IVF (06:11)
[2024-11-21 06:18] VITALS: BP 142/66; PULSE 77; RESP 24; TEMP 36.3; O2SAT 93
[2024-11-21 06:53] LABS: Potassium* 3.8 mmol/L (3.6-5.1)
[2024-11-21 06:55] LABS: Creatinine* 0.8 mg/dL (0.5-1.5); Est. Creatinine Clearance* 67.02; Estimated Glomerular Filt Rate 97 ml/min
[2024-11-21 07:43] VITALS: BP 153/81; PULSE 74; RESP 20; TEMP 37.1; O2SAT 95
--- NOTE | 2024-11-21 08:06 | PC.NURSE ---
End of Transfusion: Patient pleasant and cooperative. VSS, afebrile. No reactions noted.
[2024-11-21 17:52] VITALS: BP 152/72; PULSE 80; RESP 18; TEMP 36.4; O2SAT 97
[2024-11-21 19:50] VITALS: BP 168/74; PULSE 71; RESP 18; TEMP 36.7; O2SAT 98
--- NOTE | 2024-11-21 20:07 | PC.NURSE ---
End of infusion: Pt alert, oriented and vitally stable. Infusion complete at 1950. No reaction noted post infusion.
[2024-11-22 06:05] VITALS: BP 138/70; PULSE 64; RESP 18; TEMP 36.6; O2SAT 95
[2024-11-22] MEDS: SODIUM CHLORIDE 0.9 % (FLUSH) 10 ML SYRINGE IVF (06:07)
[2024-11-22] MEDS: VANCOMYCIN 1.5 GM/300 ML 1.5 GM/300 ML PIGGYBACK IVPB ×2 (06:07→17:58)
[2024-11-22] MEDS: 0.9 % SODIUM CHLORIDE 250 ml IV (06:08)
--- NOTE | 2024-11-22 06:19 | PC.NURSE ---
Start of infusion: Pt arrived at 0555, vitally stable. Antibiotic started at 0603.
[2024-11-22 07:35] VITALS: BP 149/74; PULSE 63; RESP 18; TEMP 36.7; O2SAT 95
--- NOTE | 2024-11-22 10:11 | PC.NURSE ---
End of Transfusion: Patient pleasant and cooperative, VSS, afebrile. No transfusion reactions noted. Dressing on PICC line replaced this shift due to it was falling off.
[2024-11-22 18:00] VITALS: BP 158/71; PULSE 76; RESP 18; TEMP 36.7; O2SAT 97
[2024-11-22 20:32] VITALS: BP 147/73; PULSE 66; RESP 20; TEMP 37.2; O2SAT 95
[2024-11-23] MEDS: VANCOMYCIN 1.5 GM/300 ML 1.5 GM/300 ML PIGGYBACK IVPB ×2 (05:55→18:01)
[2024-11-23] MEDS: 0.9 % SODIUM CHLORIDE 250 ml IV (05:55)
[2024-11-23 06:00] VITALS: BP 132/67; PULSE 65; RESP 22; TEMP 36.5; O2SAT 96
[2024-11-23] MEDS: SODIUM CHLORIDE 0.9 % (FLUSH) 10 ML SYRINGE IVF ×3 (06:00→18:01)
[2024-11-23 18:06] VITALS: BP 153/65; PULSE 77; RESP 18; TEMP 36.7; O2SAT 97
[2024-11-23 19:35] VITALS: BP 136/60; PULSE 75; RESP 18; TEMP 36.4; O2SAT 93
--- NOTE | 2024-11-23 19:52 | PC.NURSE ---
End of infusion: Pt alert, oriented and vitally stable. Infusion complete at 1935. No reaction noted post infusion.
[2024-11-24 06:00] VITALS: BP 136/61; PULSE 67; RESP 16; TEMP 36.4; O2SAT 97
[2024-11-24] MEDS: VANCOMYCIN 1.5 GM/300 ML 1.5 GM/300 ML PIGGYBACK IVPB ×2 (06:01→18:49)
[2024-11-24] MEDS: SODIUM CHLORIDE 0.9 % (FLUSH) 10 ML SYRINGE IVF (06:01)
[2024-11-24] MEDS: 0.9 % SODIUM CHLORIDE 250 ml IV (06:01)
[2024-11-24 06:49] LABS: Creatinine* 0.9 mg/dL (0.5-1.5); Est. Creatinine Clearance* 67.02; Estimated Glomerular Filt Rate 94 ml/min
[2024-11-24 07:32] LABS: White Blood Count* 7.18 K/uL (4.50-11.00)
[2024-11-24 07:37] LABS: INR 2.32 (0.91-1.10); Prothrombin Time 26.6 Seconds
[2024-11-24 07:48] VITALS: BP 143/65; PULSE 72; RESP 18; TEMP 36.5; O2SAT 95
[2024-11-24 18:38] VITALS: BP 151/70; PULSE 81; RESP 18; TEMP 36.4; O2SAT 92
--- NOTE | 2024-11-24 21:26 | PC.NURSE ---
Pt received Infusion and tolerate well. Pt left 2039.
[2024-11-25 06:05] VITALS: BP 148/70; PULSE 60; RESP 18; TEMP 36.9; O2SAT 97
[2024-11-25] MEDS: SODIUM CHLORIDE 0.9 % (FLUSH) 10 ML SYRINGE IVF (06:09)
[2024-11-25] MEDS: VANCOMYCIN 1.5 GM/300 ML 1.5 GM/300 ML PIGGYBACK IVPB ×2 (06:09→17:56)
[2024-11-25 18:07] VITALS: BP 168/78; PULSE 77; RESP 22; TEMP 36.6; O2SAT 98
--- NOTE | 2024-11-25 22:10 | PC.NURSE ---
Pt came in for outpatient IV abx. VSS, afebrile and no c/o pain. PICC line patent & C/D/I. Tolerated infusion well. Ambulated off unit and left at 2030.
[2024-11-26 05:47] VITALS: BP 147/71; PULSE 70; RESP 20; TEMP 36.6; O2SAT 97
[2024-11-26] MEDS: VANCOMYCIN 1.5 GM/300 ML 1.5 GM/300 ML PIGGYBACK IVPB ×2 (05:58→17:59)
[2024-11-26] MEDS: SODIUM CHLORIDE 0.9 % (FLUSH) 10 ML SYRINGE IVF ×2 (18:01→19:41)
[2024-11-26 18:08] VITALS: BP 150/72; PULSE 77; RESP 20; TEMP 36.6; O2SAT 91
[2024-11-27] MEDS: 0.9 % SODIUM CHLORIDE 250 ml IV (06:08)
[2024-11-27] MEDS: SODIUM CHLORIDE 0.9 % (FLUSH) 10 ML SYRINGE IVF ×3 (06:08→20:07)
[2024-11-27] MEDS: VANCOMYCIN 1.5 GM/300 ML 1.5 GM/300 ML PIGGYBACK IVPB ×2 (06:09→18:05)
[2024-11-27 06:13] VITALS: BP 151/68; PULSE 68; RESP 16; TEMP 36.4; O2SAT 92
--- NOTE | 2024-11-27 08:14 | PC.NURSE ---
antibiotic infused without difficulty. Patient then ambulated to the door. will return this evening for his next dose.
[2024-11-27 18:00] VITALS: BP 164/78; PULSE 73; RESP 16; TEMP 36.6; O2SAT 95
[2024-11-28] MEDS: VANCOMYCIN 1.5 GM/300 ML 1.5 GM/300 ML PIGGYBACK IVPB ×2 (06:08→17:59)
[2024-11-28] MEDS: 0.9 % SODIUM CHLORIDE 250 ml IV ×2 (06:09→18:02)
[2024-11-28] MEDS: SODIUM CHLORIDE 0.9 % (FLUSH) 10 ML SYRINGE IVF ×2 (06:11→19:46)
[2024-11-28 06:13] VITALS: BP 140/68; PULSE 75; RESP 16; TEMP 36.7; O2SAT 91
[2024-11-28 06:22] LABS: Potassium* 3.9 mmol/L (3.6-5.1)
[2024-11-28 09:47] LABS: Creatine Kinase* 94 U/L (54-186)
[2024-11-28 17:57] VITALS: BP 152/67; PULSE 74; RESP 24; TEMP 36.4; O2SAT 93
[2024-11-28 19:45] VITALS: BP 164/70; PULSE 74; RESP 20; TEMP 36.4; O2SAT 91
--- NOTE | 2024-11-28 19:51 | PC.NURSE ---
Pt infusion ended around 1944. Pt tolerated well. Pt denies SOB, pain, Chest pain, and N/V. PICC patent and dressing CDI. Pt walked out of unit around 1949.
[2024-11-29 05:55] VITALS: BP 162/76; PULSE 68; RESP 20; TEMP 36.3; O2SAT 94
[2024-11-29] MEDS: VANCOMYCIN 1.5 GM/300 ML 1.5 GM/300 ML PIGGYBACK IVPB ×2 (05:57→18:02)
[2024-11-29] MEDS: SODIUM CHLORIDE 0.9 % (FLUSH) 10 ML SYRINGE IVF (05:57)
[2024-11-29 07:45] VITALS: BP 155/77; PULSE 70; RESP 32; TEMP 36.4; O2SAT 95
[2024-11-29] MEDS: 0.9 % SODIUM CHLORIDE 250 ml IV (18:02)
[2024-11-29 18:07] VITALS: BP 147/66; PULSE 88; RESP 25; TEMP 36.3; O2SAT 92
[2024-11-29 18:10] VITALS: BP 145/68; PULSE 72; RESP 20; TEMP 36.5; O2SAT 93
--- NOTE | 2024-11-29 20:44 | PC.NURSE ---
Pt alert and oriented x3. Afebrile. Pt tolerated infusion well. PICC dressing changed and CDI, pt tolerated well. Pt denies pain, chest pain, SOB, and N/V. Pt walk out of unit around 2019.
[2024-11-30 06:00] VITALS: BP 152/74; PULSE 70; O2SAT 98
[2024-11-30] MEDS: VANCOMYCIN 1.5 GM/300 ML 1.5 GM/300 ML PIGGYBACK IVPB ×2 (06:05→17:55)
[2024-11-30] MEDS: SODIUM CHLORIDE 0.9 % (FLUSH) 10 ML SYRINGE IVF ×2 (06:09→17:55)
[2024-11-30 18:00] VITALS: BP 142/62; PULSE 70; RESP 20; TEMP 36.3; O2SAT 91
--- NOTE | 2024-11-30 18:53 | PC.NURSE ---
Vs on RA, started vancomycin infusion via [facility]... Flushed with 10cc and blood return was observed. No reports of pain, although reports feeling fatigued.
[2024-11-30 19:30] VITALS: BP 121/54; PULSE 72; RESP 20; TEMP 36.6; O2SAT 94
[2024-12-01] MEDS: SODIUM CHLORIDE 0.9 % (FLUSH) 10 ML SYRINGE IVF ×3 (05:55→19:33)
[2024-12-01] MEDS: VANCOMYCIN 1.5 GM/300 ML 1.5 GM/300 ML PIGGYBACK IVPB (05:55)
[2024-12-01] MEDS: 0.9 % SODIUM CHLORIDE 250 ml IV (05:55)
[2024-12-01 05:58] VITALS: BP 131/70; PULSE 80; RESP 16; TEMP 36.3; O2SAT 92
[2024-12-01 07:50] LABS: White Blood Count* 6.73 K/uL (4.50-11.00)
[2024-12-01 08:07] LABS: INR 2.84 (0.91-1.10); Prothrombin Time 31.1 Seconds
[2024-12-01 08:09] LABS: Creatinine* 0.9 mg/dL (0.5-1.5); Est. Creatinine Clearance* 67.02; Estimated Glomerular Filt Rate 94 ml/min
[2024-12-01 18:05] VITALS: BP 141/70; PULSE 76; RESP 20; TEMP 36.5; O2SAT 94
[2024-12-02 05:55] VITALS: BP 143/65; PULSE 74; RESP 20; TEMP 36.3; O2SAT 96
[2024-12-02] MEDS: SODIUM CHLORIDE 0.9 % (FLUSH) 10 ML SYRINGE IVF ×2 (05:58→18:02)
[2024-12-02 07:38] VITALS: BP 136/69; PULSE 72; RESP 20; TEMP 36.3; O2SAT 96
[2024-12-02] MEDS: 0.9 % SODIUM CHLORIDE 250 ml IV (18:02)
[2024-12-02 18:05] VITALS: BP 142/67; PULSE 65; RESP 20; TEMP 36.4; O2SAT 97
[2024-12-03 05:56] VITALS: BP 151/72; PULSE 70; RESP 18; O2SAT 97
[2024-12-03] MEDS: SODIUM CHLORIDE 0.9 % (FLUSH) 10 ML SYRINGE IVF ×2 (07:38→18:02)
[2024-12-03] MEDS: 0.9 % SODIUM CHLORIDE 250 ml IV (18:02)
[2024-12-03 18:05] VITALS: BP 143/68; PULSE 70; RESP 20; TEMP 36.5; O2SAT 94
[2024-12-04] MEDS: 0.9 % SODIUM CHLORIDE 250 ml IV (06:02)
[2024-12-04] MEDS: SODIUM CHLORIDE 0.9 % (FLUSH) 10 ML SYRINGE IVF ×2 (06:02→19:40)
[2024-12-04 06:08] VITALS: BP 149/80; PULSE 67; RESP 20; TEMP 36.6; O2SAT 95
[2024-12-04 06:55] LABS: Potassium* 3.5 mmol/L (3.6-5.1)
[2024-12-04 06:58] LABS: Creatinine* 0.8 mg/dL (0.5-1.5); Est. Creatinine Clearance* 67.02; Estimated Glomerular Filt Rate 97 ml/min
[2024-12-04 07:49] VITALS: BP 164/75; PULSE 64; RESP 20; TEMP 36.5; O2SAT 96
[2024-12-04 18:23] VITALS: BP 142/66; PULSE 66; RESP 20; TEMP 36.6; O2SAT 95
[2024-12-05] MEDS: SODIUM CHLORIDE 0.9 % (FLUSH) 10 ML SYRINGE IVF ×2 (05:59→18:03)
[2024-12-05 06:05] VITALS: BP 162/64; PULSE 6; RESP 18; O2SAT 96
[2024-12-05 18:00] VITALS: BP 144/77; PULSE 73; RESP 18; TEMP 36.6; O2SAT 96
[2024-12-05] MEDS: 0.9 % SODIUM CHLORIDE 250 ml IV (18:03)
[2024-12-05 19:28] VITALS: BP 138/69; PULSE 67; RESP 18; TEMP 36.6; O2SAT 94
[2024-12-06 07:31] VITALS: BP 146/65; PULSE 66; RESP 22; TEMP 37.1; O2SAT 94
--- NOTE | 2024-12-06 07:37 | PC.NURSE ---
PICC dressing changed, tolerated infusion well.
[2024-12-06 17:50] VITALS: BP 138/65; PULSE 73; RESP 20; TEMP 36.8; O2SAT 95
[2024-12-07 06:01] VITALS: BP 136/68; PULSE 84; RESP 22; TEMP 36.4; O2SAT 98
[2024-12-07] MEDS: SODIUM CHLORIDE 0.9 % (FLUSH) 10 ML SYRINGE IVF ×4 (06:12→19:13)
[2024-12-07 17:57] VITALS: BP 147/78; PULSE 74; RESP 20; TEMP 36.6; O2SAT 97
[2024-12-08 05:55] VITALS: BP 152/74; PULSE 70; RESP 22; TEMP 36.5; O2SAT 98
[2024-12-08] MEDS: SODIUM CHLORIDE 0.9 % (FLUSH) 10 ML SYRINGE IVF ×3 (05:58→18:00)
[2024-12-08 06:32] LABS: White Blood Count* 6.14 K/uL (4.50-11.00)
[2024-12-08 06:47] LABS: Creatinine* 0.8 mg/dL (0.5-1.5); Est. Creatinine Clearance* 67.02; Estimated Glomerular Filt Rate 97 ml/min
[2024-12-08 06:53] LABS: INR 3.05 (0.91-1.10); Prothrombin Time 32.8 Seconds
[2024-12-08 17:58] VITALS: BP 142/73; PULSE 72; RESP 20; O2SAT 96
[2024-12-08 19:32] VITALS: BP 155/66; PULSE 70; RESP 20; TEMP 36.8; O2SAT 94
[2024-12-09 06:12] VITALS: BP 142/70; PULSE 67; RESP 20; TEMP 36.8; O2SAT 93
[2024-12-09 18:00] VITALS: BP 163/71; PULSE 72; RESP 20; TEMP 36.4; O2SAT 95
[2024-12-09] MEDS: SODIUM CHLORIDE 0.9 % (FLUSH) 10 ML SYRINGE IVF (18:01)
[2024-12-10] MEDS: SODIUM CHLORIDE 0.9 % (FLUSH) 10 ML SYRINGE IVF ×2 (05:57→18:06)
[2024-12-10 05:59] VITALS: BP 148/64; PULSE 63; RESP 20; TEMP 36.4; O2SAT 95
[2024-12-10 07:14] VITALS: BP 143/88; PULSE 82; RESP 16; TEMP 36.4; O2SAT 93
[2024-12-10 18:06] VITALS: BP 142/62; PULSE 69; RESP 20; TEMP 36.5; O2SAT 95
[2024-12-11] MEDS: SODIUM CHLORIDE 0.9 % (FLUSH) 10 ML SYRINGE IVF ×2 (06:07→18:22)
[2024-12-11 06:08] VITALS: BP 123/68; PULSE 62; RESP 22; TEMP 36.6; O2SAT 91
[2024-12-11 07:02] LABS: Creatinine* 0.9 mg/dL (0.5-1.5); Est. Creatinine Clearance* 67.02; Estimated Glomerular Filt Rate 94 ml/min
[2024-12-11 18:28] VITALS: BP 148/62; PULSE 73; RESP 18; TEMP 36.7; O2SAT 91
[2024-12-11 20:02] VITALS: BP 150/68; PULSE 68; RESP 22; TEMP 36.8; O2SAT 92
== END 2024-12-11 20:00 | disposition home or self-care (01) ==
LOC: MS OUT 17:44
PROVIDERS: PCP Internal Medicine; Visit Provider Family Medicine
DX: R78.81 Bacteremia (principal); B95.62 Methicillin resistant Staphylococcus aureus infection as the cause of diseases classified elsewhere
CPT/HCPCS: 36415; 36591; 80202; 82550; 82565; 84132; 85048; 85610; 96365; 96366; G0463; A4221; J3372; J7050

== ENCOUNTER 2024-12-17 10:43 | Outpatient (CLI) | payer MEDICARE, SELFPAY | END 2024-12-17 10:44 | disposition home or self-care (01) | LOC: NFLDREF 12-22 02:47 | PROVIDERS: PCP Internal Medicine; Referring Provider Internal Medicine; Visit Provider Internal Medicine | DX: N18.2 Chronic kidney disease, stage 2 (mild) (principal); Z79.01 Long term (current) use of anticoagulants | CPT/HCPCS: 80069 ==

== ENCOUNTER 2025-03-04 08:29 | Outpatient (CLI) | payer MEDICARE, SELFPAY ==
--- NOTE | 2025-03-04 09:00 | CRLHL7_ITS ---
For Patients: As a result of the Century Cures Act, medical imaging exams and procedure reports are released immediately into your electronic medical record. You may view this report before your referring provider. If you have questions, please contact your health care provider. Indication: ABD DISTENSION, ABD PAIN Technique: CT Abdomen/Pelvis W/144CC [id number] intravenous contrast Please note that all CT scans at this facility use dose modulation, iterative reconstruction, and/or weight-based dosing when appropriate to reduce radiation dose to as low as reasonably achievable. Comparison: 11/12/2024 Findings: Ill-defined density within the right lower lobe is now present measuring 1.2 cm. Mild scarring in both lung bases. Similar appearance of the liver with overall decreased attenuation. The liver measures 25 cm. Multiple hypodensities throughout the liver are stable. Layering stones in the gallbladder again noted. No biliary duct dilation. Pancreas normal. Spleen is unremarkable. Normal adrenal glands. Kidneys are within normal limits. Retroperitoneal adenopathy again noted with numerous lymph nodes measuring up to 1.5 cm. Enlarged lymph nodes about the right common iliac vein are also similar measuring up to 1.9 cm. Bladder normal. Prostate is similar with possible postprocedural changes. No bowel obstruction or free air. No free fluid or abscess. No bowel wall thickening. No evidence of enteritis or colitis. Degenerative changes. Stable density within the L2 vertebral body. No fracture. Impression: Hepatomegaly and hepatic steatosis. Stable intrahepatic cysts. No ascites. Chronic cholelithiasis. Chronic retroperitoneal and right common iliac adenopathy. New ill-defined density within the right lower lobe of the lung which could signify infiltrate. Short-term follow-up CT chest in 3 months recommended. Please note that all CT scans at this facility use dose modulation, iterative reconstruction, and/or weight-based dosing when appropriate to reduce radiation dose to as low as reasonably achievable. Dictated by Breezy Hooper MD @ 03/04/2025 10:52:27 AM (Electronically Signed)
[2025-03-04 09:06] LABS: Estimated Glomerular Filt Rate 82 ml/min
--- OUTSIDE RECORDS SUMMARY | 2025-03-05 00:12 | XMS_ITS | Clinical Summary ---
Author Organization [facility] Address [address] [place] [address] Care Team Providers Care Grain Mixer Name Role Phone Romeo Mendez MD Primary Care Provider [phone] Allergies Active Allergy Reactions Criticality Noted Date Comments Iodine Hives 10/08/2019 Medications Cepwa-6-IBC-EPA-Fi sh Oil 1,000 mg (120 mg-180 mg) [...] be used to read blood sugars, follow candle extrusion machine operator directions. 9 Each 3 06/21/20 23 Active Dexcom G7 Emergency Care Attendant for continuous blood glucose monitor (CGM)Indications:U ncontrolled type 2 diabetes mellitus with hyperglycemia (HC) To be used to read blood sugars follow candle extrusion machine operator directions. 1 Each 06/21/20 23 Active acetaminophen (TYLENOL EXTRA STRGTH) 500 mg tablet Take 500-1,000 mg by mouth every 6 hours if needed for Pain. Max acetaminophen dose: 4000mg in 24 hrs. 0 07/19/20 23 Active liraglutide (VICTOZA) 0.6 mg/0.1 mL (18 mg/3 mL) subcutaneous pen Inject 1.8 mg subcutaneous once daily. 36 mL 4 11:42 AM OUTREACH REP 10/25/19 24 Active Insulin [place], Disposable, (Novofine 32) 32 gauge x 1/4 To be used once daily with Victoza 200 Each 2 4 11:42 AM OUTREACH REP 10/25/19 24 Active ferrous sulfate 325 mg [...] 999 Months. 1 Each 01/22/20 24 Active cetirizine (ZYRTEC) 10 mg tabletIndications: [...] 3 mg tabletIndications: Right atrial thrombus,Patent foramen ovale (HC),Anticoagulati on monitoring, INR range 2-3,Anticoagulant long-term use [...] daily. 180 Tablet 1 06/29/20 24 Active rx trimethoprim-sulfa methoxazole, 160-800 mg, (BACTRIM DS, SEPTRA DS) tablet (ED DC MED)Indications:Pr ostate abscess,MRSA infection,MRSA bacteremia Take 1 Tablet by mouth two times daily. Start 1 day after last vancomycin dose 120 Tablet 12/16/19 25 Active Active Problems Problem Noted Date Diagnosed [...] Encounters Date Type Department Care Team Description 01/05/2025 11:40 AM CDT Orders Only [facility] [address] [place] [address] Only, [facility] Lab 01/05/2025 10:30 AM CDT Office Visit [facility] [address] [place] [address] Rony Larson MD Follow Up (On-going bloating and stomach pain) 01/05/2025 Travel 12/08/2024 Orders Only [facility] Scanner 1 scan: (1-Ord) MAXX RIOS, 12/08/2024 12/03/[address] [facility] [address] [place] [address] Rony Larson MD Lab; Infusion Therapy from Last 3 Months Immunizations Immunization Administration Dates Next Due AMB Influenza, IIV4 PF (=>6 mos Flulaval,Fluzone Fluarix)(Flu Clinic Only) 06/15/2020 COVID-19 VACCINE SPIKEVAX (M ODERNA 50MCG/0.5ML) 12YO+ PFS 07/09/2023 COVID-19 vaccine (Moderna 100mcg/0.5mL) PF, MDV 12/27/2021,11/03/2020,10/06/2020 COVID-19 vaccine (Cydcor NTSimplist 30mcg/0.3mL) 12YO+ BIVALENT PF, MDV 07/03/2022 Influenza RIV4 (Age 18+ Year s) PRESERV FREE 07/22/2019 Influenza Virus, Unspecified 10/02/2016, 09/28/2016,05/26/2015,2012,06/24/2010 Influenza, High-dose Inactivated 10/02/2016 Influenza, IIV4 07/03/2022, 8,06/26/2017,2016 Influenza, IIV4 (=>6mos) MDV 07/04/2021,05/26/20 15 Influenza, Inactivated AIIV4 (Age 65+ Years) Preserv Free 07/09/2023 Pneumococcal Conj 20-valent (Prevnar 20) 04/23/2023 Pneumococcal [...] Sign Reading Time Taken Comments Blood Pressure 146/69 01/05/2025 10:33 AM CDT Pulse 64 01/05/2025 10:33 AM CDT Temperature 36.4 C (97.5 F) 03/05/2024 11:02 AM CDT Respiratory Rate 22 01/05/2025 10:33 AM CDT Oxygen Saturation 93% 01/05/2025 10:33 AM CDT Inhaled Oxygen Concentration - - Weight 129.3 kg (285 lb) 01/05/2025 10:33 AM CDT Height 170.2 cm (5' 7) 01/18/2024 9:17 AM CDT Body Mass Index 44.64 01/18/2024 9:17 AM CDT Plan of Treatment Health Maintenance Due Date Last Done Comments RSV vaccine for adults or (1 - Risk 60-74 years 1-dose series) 2017 Colonoscopy through age 75 12/31/2020 12/31/2017, Medicare Wellness for age 65+ 04/23/2024 04/23/2023 Depression screening for age 12+ 04/27/2024 04/27/2023, 04/24/2023, 04/23/2023, Additional history exists COVID-19 vaccine series ( season) 2024 07/09/2023, 07/03/2022, 12/27/2021, Additional history exists BMI (ht and wt on same day) for age 18+ 01/13/2025 01/14/2024, 04/23/2023, 03/07/2023, Additional history exists Influenza Vaccine (Season Ended) 2025 07/09/2023, 07/03/2022, 07/04/2021, Additional history exists Tetanus booster 03/19/2027 03/19/2017, 12/09, 12/20/2007 Lipids for age 45-75 06/19/2028 06/19/2023, 06/19/2023, 03/07/2023, Additional history exists Tdap Completed 03/19/2017 Hepatitis C screening for age 18-79 Completed 02/27/2020 Zoster (shingles) series for age 50+ Completed 07/03/2022, 02/22/2022 Pneumococcal series for age 50+ Completed 04/23/2023, 04/07/2016, 03/15/2011 AAA screening age 65-74 Completed 07/02/2023 Hepatitis B series for 19+ Aged Out N o longer eligible based on patient's age to complete this topic Procedures Procedure Name Priority Date/Time Associated Diagnosis Comments HEPATIC FUNCTION PANEL Routine 01/05/2025 11:29 AM CDT Right lower quadrant abdominal pain CREATININE Routine 01/05/2025 11:29 AM CDT Chronic prostatitis POTASSIUM Routine 01/05/2025 11:29 AM CDT Chronic prostatitis CBC W PLT NO DIFF Routine 01/05/2025 11: 29 AM CDT Chronic prostatitis SCAN-LABORATORY REPORT 12/08/2024 12:00 AM CDT US ABD AORTA SCREENING [...] Recently Relevant to Health Maintenance Results * CBC W PLT NO DIFF (01/05/2025 11:29 AM CDT) WHITE BLOOD CELL COUNT 8.5 3.8 - 10.8 Thousand/u L [facility] RED BLOOD CELL COUNT 4.69 4.20 - 5.80 Million/uL [facility] HEMOGLOBIN 14.0 13.2 - 17.1 g/dL [facility] HEMATOCRIT 41.6 38.5 - 50.0 % [facility] MCV 88.7 80.0 - 100.0 fL [facility] MCH 29.9 27.0 - 33.0 pg [facility] MCHC 33.7 32.0 - 36.0 g/dL [facility] Comment: For adults, a slight decrease in the calculated MCHC value (in the range of 30 to 32 g/dL) is most likely not clinically significant; however, it should be interpreted with caution in correlation with other red cell parameters and the patient's clinical condition. RDW 14.7 11.0 - 15.0 % [facility] PLATELET COUNT 200 140 - 400 Thousand/u L [facility] MPV 10.8 7.5 - 12.5 fL [facility] Blood BLOOD SPECIMEN / Unknown 01/05/2025 11:29 AM CDT 01/05/2025 11:29 AM CDT Rony Larson MD HEMATOLOGY Final Resul t [facility] [address] [place] [address], [place] [phone] [facility] [address] [place] [address] * POTASSIUM (01/05/2025 11:29 AM CDT) POTASSIUM 4.7 3.5 - 5.3 mmol/L [facility] Blood BLOOD SPECIMEN / Unknown 01/05/2025 11:29 AM CDT 01/05/2025 11:29 AM CDT Rony Larson MD CHEMISTRY Final Resul t [facility] [address] [place] [address], [place] [phone] [facility] [address] [place] [address] * CREATININE (01/05/2025 11:29 AM CDT) [facility] CREATININE 1.26 0.70 - 1.35 mg/dL [facility] EGFR 63 > OR = 60 mL/min/1.73 m2 [facility] Blood BLOOD SPECIMEN / Unknown 01/05/2025 11:29 AM CDT 01/05/2025 11:29 AM CDT us Rony Larson MD CHEMISTRY Final Resul t [facility] [place] [id number] [place] [address], [facility] [address] [place] [phone] * HEPATIC FUNCTION PANEL (01/05/2025 11:29 AM CDT) [facility] PROTEIN, TOTAL 7.2 6.1 - 8.1 g/dL [facility] ALBUMIN 4.1 3.6 - 5.1 g/dL [facility] GLOBULIN 3.1 1.9 - 3.7 g/dL (calc) [facility] ALBUMIN/GLOBULIN RATIO 1.3 1.0 - 2.5 (calc) [facility] BILIRUBIN, TOTAL 0.5 0.2 - 1.2 mg/dL [facility] BILIRUBIN, DIRECT 0.1 < OR = 0.2 mg/dL [facility] BILIRUBIN, INDIRECT 0.4 0.2 - 1.2 mg/dL (calc) [facility] ALKALINE PHOSPHATASE 81 35 - 144 U/L [facility] AST 35 10 - 35 U/L [facility] ALT 38 9 - 46 U/L [facility] Blood BLOOD SPECIMEN / Unknown 01/05/2025 11:29 AM CDT 01/05/2025 11:29 AM CDT Rony Larson MD CHEMISTRY Final Resul t [facility] [address] [facility] [place] [address], [place] [phone] [facility] [address] [place] [address] * SCAN-LABORATORY REPORT (12/08/2024 12:00 AM CDT) us Scanner OTHER Final Result * US ABD AORTA SCREENING [[id number]] (07/02/2023 9:12 AM CDT) Anatomical Region Laterality [...] No abdominal aortic aneurysm. Dictated by Breezy Hopoer MD @ Jul 02 2023 10:06AM (Electronically [...] 100 - 199 mg/dL 06/20/2023 7:00 AM [facility] Comment: Cholesterol, Total Reference Ranges Desirable <200 mg/dL Borderline 200-239 mg/dL High >=240 mg/dL TRIGLYCERIDES 530(H) <150 mg/dL 06/20/2023 7:00 AM [facility] HDL CHOLESTEROL 30(L) >40 mg/dL 3 7:00 AM [facility] NON-HDL CHOLESTEROL 129 <145 mg/dl 06/20/2023 7:00 AM [facility] CHOL/HDL RATIO 5.30(H) <4.50 06/20/2023 7:00 AM [facility] LDL CHOLESTEROL 3 7:00 AM [facility] Comment:Invalid LDL when Tri g >400. VLDL CHOLESTEROL COMMENT 06/20/2023 7:00 AM [facility] Comment:Unable to calculate VLDL. PROVIDER ORDERED STATUS RANDOM 06/20/2023 7:00 AM [facility] Blood BLOOD SPECIMEN / Unknown Venipuncture / Unknown 06/19/2023 11:13 AM CDT 06/19/2023 11:15 AM CDT us Opal Richards DO CHEMISTRY Final Resu lt [facility] [address] [place] [address], [place] * ANTI HCV (02/27/2020 2:02 PM CDT) HEPATITIS C ANTIBODY Non-React gennaro Non-React gennaro 02/27/2020 8:36 PM CDT [facility] Comment:Antibodies to HCV no t detected; does not exclude the possibility of exposure to HCV. Blood BLOOD SPECIMEN / Unknown Butterfly / Unknown 02/27/2020 2:02 PM CDT 02/27/2020 2:03 PM CDT us Radha Prieto MD SEND OUTS Final Resul t Performing Organization Address City/[facility]/ZIP Co de Phone Number [facility] [address] [place] [address], [place] * SCAN-COLONOSCOPY (12/31/2017 12:00 AM CDT) [...] 12 months since positive culture): resides in acute/prison care, receiving hemodialysis, has chronic open wounds/skin damage, has long-term percutaneous indwelling medical devices Exclusions for nares collection (if <12 months since positive culture) include all of the previous exclusions plus patients on antibiotics 7 days prior to collection 01/17/2024 01/17/2024 Insurance [place] [address] Advance Directives * Full Code (Latest Code Status on File) Date Activated Date Inactivated Comments 01/17/2024 5:28 AM 01/23/2024 3:44 PM Question Answer Comments Code Status Discussion: Reviewed Preferences Care Teams Grain Mixer Relationship Specialty Start Date End Date Romeo Mendez MD [address] [facility] [place] [address] PCP - General Internal Medicine 12/05/24
--- OUTSIDE RECORDS SUMMARY | 2025-03-05 00:12 | XMS_ITS | Data Portability ---
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 Lab PSA, serum or plasma 2024 025 [email or web address] o [facility], [address], [place], [address], 5 11:11:54 urinal ysis, dipsti ck 2023 024 [email or web address] [facility], [address], [place], [address], 4 16:05:45 cultur e, urine 2023 024 [facility], [address], [place], [address], 09:41:12 Referral None record ed. Procedures None [...] for provi ozzie revie w. Not Available [facility] [address], [place], [address], 02/20/2024 09:41:12 02/18/20 24 02/18/2024 urina lysis , dipst ick BLOOD Large (250 RBC/uL ) Not Available [facility] [address], [place], [address], 02/18/2024 16:02:33 02/18/2002/18/2024 urina lysis , dipst ick NITRITES Negati ve Not Available [facility] [address], [place], [address], 02/18/2024 16:02:33 02/18/20 24 02/18/2024 urina lysis , dipst ick LEUKOCYTES Large (500 WBC/uL ) Not Available [facility] [address], [place], [address], 02/18/2024 16:02:33 10/03/19 25 10/03/2024 PSA, serum or plasm a PSA 0.11ng /mL 0-4.0 NG/mL Not Available [facility] [address], [place], [address], 10/03/2024 11:11:31 09/29/19 25 09/23/2024 MRI, prost ate, w/wo contr ast No observ ation record ed. [facility] [place] [address] , [place], [address], 10/03/2024 11:23:19 Result Notes None recorded. Problems Name Problem SNOMED Code Status Onset Date Resolution Date Notes Provider Name and Address Organization Details Recorded Time Abscess of prostate 8817994 Active 2024 Glen vanegas MD, PHD [address] [place] [address], [phone], [facility] 11:42:51 Male urinary stress incontinence 607934312 Active 2024 Glen vanegas MD, PHD [address] [place] [address], [phone], [facility] 11:43:01 Problem Notes None recorded. Procedures Surgical History Date Name Laterality Status Provider Name and Address Organization Details Recorded Time 10/03/19 25 Bladder Scan completed Glen Chavez MD, PHD [address] [place] [address],[address], [address], [facility] 10/03/2024 11:18:27 10/03/19 25 Blood Draw/SALES REPRESENTATIVE GRAPHIC ART/PSA RESULTS completed Glen Chavez MD, PHD [address] [place] [address],[address], [address], [facility] 10/03/2024 11:18:44 01/19/20 24 Prostate Surgery completed Tyra Almendarez [facility] 02/18/2024 14:53:31 02/09/20 18 colonoscopy completed Tyra Fryarian [facility] 02/18/2024 14:53:56 Imaging Results None recorded. Procedure Notes None recorded. Medical Equipment None Reported. Allergies Allergen ID Allergen Name Allergen Category Reaction Reaction Severity Criticality Documentation Date Start Date Code Code System Note Provider Name and Address Organization Details Recorded Time 151084 iodine medicatio n hives Not available Not available 10/03/20242019 5933 RxNorm Tammi arce [facility] 11:12:22 Medications Name Sig Start Date Stop Date [...] Updated DateTime 10/03/2024 170.18 cm 38.8 kg/m2 236087.91 g Tammi cavazos [facility] 10/03/2024 11:12:19 Date Recorded Body height Body mass index (BMI) Body weight Provider Name and Address Organization Details Last Updated DateTime 02/18/2024 170.18 cm 38.8 kg/m2 006784.91 evaristo Shahrk [facility] 02/18/2024 14:48:42 Social History Question Answer Notes LastModified by Organizat ion Details LastModified Time Tobacco Smoking Status Former Smoker Tyra Shahrk arce [facility] 02/18/2024 14:52:27 What Is Your Level Of Caffeine Consumption? [...] You Smoke? No Information not available 02/18/2024 Has Tobacco Cessation Counseling Been Provided? No Information not available 02/18/2024 How Many Days In The Past Year Have You Consumed 5 Or More Drinks? 0 Information not available 02/18/2024 Sex: Unknown Functional Status Question Answer Note LastModified by Organizat ion Details LastModified Time Do you use any illicit or recreational drugs? No Information not available 02/18/2024 Do you or have you ever used any other forms of tobacco or nicotine? No Information not available 02/18/2024 What is your level of alcohol consumption? Occasional Information not available 02/18/2024 Mental Status None recorded. Family History Relationship Description Onset Age of this Age Resolved Age Notes LastModified by Organization Details LastModified Time Father Leukemia [email or web address] Not availab le 02/18/2024 14:51:39 Medical History Condition Response Sexually Transmitted Infection N Diabetes Y Bleeding Disorder N High Blood Pressure Y Kidney Stones N Cancer N Lung Disease N Depression N High Cholesterol Y GERD/Acid Reflux N Heart Disease N Immunizations Vaccine Type Date Status Note Provider Nam e and Address Organization Details Recorded Time Influenza, split virus, quadrivalent, preservative 5 completed [facility]/18[facility]2024 14:48:50 Influenza, split virus, quadrivalent, preservative 1 completed [facility] 02/18/2024 14:48:50 Influenza, recombinant, quadrivalent, PF 9 completed [facility] 02/18/2024 14:48:50 zoster recombinant 2 completed [facility] 02/18/2024 14:48:50 zoster recombinant 2 completed [facility] 02/18/2024 14:48:50 Influenza, adjuvanted, quadrivalent, PF 3 completed [facility] 02/18/2024 14:48:50 COVID-19, mRNA, LNP-S, PF, 100 mcg/0.5mL dose or 50 mcg/0.25mL dose [address] [facility] 02/18/2024 14:48:50 COVID-19, mRNA, LNP-S, PF, 100 mcg/0.5mL dose or 50 mcg/0.25mL dose 1 [facility] 02/18/2024 14:48:50 COVID-19, mRNA, LNP-S, PF, 100 mcg/0.5mL dose or 50 mcg/0.25mL dose 2 completed [facility] 02/18/2024 14:48:51 Pneumococcal conjugate PCV20, polysaccharide [id number] conjugate, adjuvant, PF 3 completed [facility]e [facility] 02/18/2024 14:48:51 COVID-19, mRNA, LNP-S, bivalent, PF, 30 mcg/0.3 mL dose 2 completed [facility] 02/18/2024 14:48:51 COVID-19, mRNA, LNP-S, PF, 50 mcg/0.5 mL 3 completed Tyra Shahanakeye null, [facility] 02/18/2024 14:48:51 pneumococcal polysaccharide PPV23 1 completed [facility] 02/18/2024 14:48:51 influenza, unspecified formulation 3 completed [facility] 02/18/2024 14:48:51 influenza, unspecified formulation 0 completed [facility] 02/18/2024 14:48:51 Tdap [address] [facility] 02/18/2024 14:48:51 Pneumococcal conjugate PCV [address] [facility] 02/18/2024 14:48:51 Influenza, high-dose, trivalent, PF 7 completed [facility] 02/18/2024 14:48:51 Td (adult), 5 Lf tetanus toxoid, preservative free, adsorbed 8 completed [facility] 02/18/2024 14:48:51 Influenza, split virus, quadrivalent, PF 7 completed [facility] 02/18/2024 14:48:51 Influenza, split virus, quadrivalent, PF 0 completed [facility] 02/18/2024 14:48:51 Influenza, split virus, quadrivalent, PF 8 completed Tyra Erickson arce, [facility] 02/18/2024 14:48:51 Influenza, split virus, quadrivalent, PF 7 completed Tyra Erickson null, [facility] 02/18/2024 14:48:51 Influenza, split virus, quadrivalent, PF 2 completed Tyra Erickson arce, [facility] 02/18/2024 14:48:51 Past Encounters Encounter ID Performer Location Encounter Start Date Encounter Closed Date Diagnosis/Indication Diagnosis SNOMED-CT Code Diagnosis ICD10 Code Diagnosis Note [id number] HERNAN HUYNH PA-C [facility] [address] [place] [phone] 02/18/2024 14:32:43 02/29/2024 12:35:21 Abscess of prostate 6892022 N41.2 Discussed pathology with Charito jack -- will follow up in 6 monthsOn Bactrim per ID and will be following up with them soonWill check urine culture today given his worsening incontinen ce Benign pro static hyperplasia with outflow obstruction 163808059 N40.1 S/p TURP, prostate abscess unroofing 01/18 (Kandy vanegas)Still having some incontinen ce, managed with depends at this timeDiscus sed prolonged course of healing, incontinen ce may yet improve as he is only a few weeks out from surgery but due to the size/locat ion of his abscess this may be a chronic issue [id number] Glen jack MD, PHD [facility] [address] [place] [id number] 10/03/2024 10:18:18 10/08/2024 09:54:55 Abscess of prostate 8809959 N41.2 Benign pro static hyperplasia with outflow obstruction 206116292 N40.1 Male urina ry stress incontinence 377653146 N39.3 Health Concerns Section Related Observation LastModified by Organization Detai ls LastModified Time None Recorded Concern Status LastModified by Organization Details LastModified Time None Recorded Advance Directives Directive None Recorded Payers Insurance Date Sequence Insurance Name Policy Number Policy Bettencourt Covered Member ID Bettencourt Member ID Guarantor Name 10/08/2024 1 [facility] (MEDICARE REPLACEMENT/A DVANTAGE - PPO) [id number] [place] [place] [id number] Juma Evelin [place] Notes Date Note Type Note Provider Name and Address Organization Details Recorded Time 02/18/2024 text/html 68 yo M presents for prostate abscess follow up. Recently admitted to [facility] with urosepsis with finding of prostate abscess, now s/p TURP and prostate abscess unroofing with Dr Chavez on 01/19/24. Postoperatively was weaned from CBI and discharged on 6 week course of Septra per ID. He was discharge with breaux x1 week, removed without issue in [place]. Was then admitted to [facility] with hypokalemia a couple weeks ago. 02/05/24 [...] Mhx: T2DM, on warfarin HERNAN HUYNH PA-C [address] [place] [address],[address], [place], [address], [facility] 02/19/2024 14:59:15 10/03/2024 text/html 69M presents for prostate abscess follow up. Feeling bloated last few months. 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 LUTS: some leakage; improving somewhat, uses 6-8 pads/day MRI prostate (09/23/24): 39g, resolved abscess, no suspicious lesions, no LAD PMH: DM2, AFib PSA results10/03/24: 0.11 Glen Chavez MD, PHD [address] [address], [place], [address], [facility] 10/03/2024 11:47:56
== END 2025-03-04 08:30 | disposition home or self-care (01) ==
LOC: CT 08:30
PROVIDERS: PCP Internal Medicine; Visit Provider Internal Medicine
DX: R10.9 Unspecified abdominal pain (principal); R16.0 Hepatomegaly, not elsewhere classified; K76.0 Fatty (change of) liver, not elsewhere classified; K80.20 Calculus of gallbladder without cholecystitis without obstruction
CPT/HCPCS: 36415; 74177; 82565; Q9967

== ENCOUNTER 2025-04-01 12:18 | Inpatient (IN) | payer MEDICARE, SELFPAY ==
[2025-04-01] VITALS (25 sets, daily range): BP systolic 130–171; BP diastolic 58–73; PULSE 53–65; RESP 0–35; TEMP 35.1–36.2; O2SAT 80–96; BMI 48.2; BMI 48.3
--- OUTSIDE RECORDS SUMMARY | 2025-04-01 12:21 | XMS_ITS | Data Portability ---
Author Organization [place] - [facility] Address [address] [place] [address] Care Team Providers Care End Lathe Operator Name Role Phone [facility] Primary Care Provider Assessment Encounter Date Assessment [...] for possible sling - was referred to [facility] re: possible B cell lymphoma in prostate chips [facility] Not available 10/03/2024 11:47:50 Plan of Treatment Reminders Order Date Submit Date Provider Last Modified By Organization Details Last Modified Time Details Appointments None record ed. Lab PSA, serum or plasma 2024 025 [email or web address] o [facility], [address], [place], [address], 5 11:11:54 urinal ysis, dipsti ck 2023 024 [email or web address] [facility], [address], [place], [address], 4 16:05:45 cultur e, urine 2023 024 [facility], [address], [place], [address], 09:41:12 Referral None record ed. Procedures None [...] for provi ozzie revie w. Not Available [facility] [address], [place], [address], 02/20/2024 09:41:12 02/18/20 24 02/18/2024 urina lysis , dipst ick BLOOD Large (250 RBC/uL ) Not Available [facility] [address], [place], [address], 02/18/2024 16:02:33 02/18/2002/18/2024 urina lysis , dipst ick NITRITES Negati ve Not Available [facility] [address], [place], [address], 02/18/2024 16:02:33 02/18/20 24 02/18/2024 urina lysis , dipst ick LEUKOCYTES Large (500 WBC/uL ) Not Available [facility] [address], [place], [address], 02/18/2024 16:02:33 10/03/19 25 10/03/2024 PSA, serum or plasm a PSA 0.11ng /mL 0-4.0 NG/mL Not Available [facility] [address], [place], [address], 10/03/2024 11:11:31 09/29/19 25 09/23/2024 MRI, prost ate, w/wo contr ast No observ ation record ed. [facility] [place] [address] [facility] , [place], [address], 10/03/2024 11:23:19 Result Notes None recorded. Problems Name Problem SNOMED Code Status Onset Date Resolution Date Notes Provider Name and Address Organization Details Recorded Time Abscess of prostate 1529127 Active 2024 Glen vanegas MD, PHD [address] [place] [address], [phone], [facility] 11:42:51 Male urinary stress incontinence 529349400 Active 2024 Glen vanegas MD, PHD [address] [place] [address], [phone], [facility] 11:43:01 Problem Notes None recorded. Procedures Surgical History Date Name Laterality Status Provider Name and Address Organization Details Recorded Time 10/03/19 25 Bladder Scan completed Glen Chavez MD, PHD [address] [place] [address],[address], [address], [facility] 10/03/2024 11:18:27 10/03/19 25 Blood Draw/CORPORATE LIBRARIAN/PSA RESULTS completed Glen Chavez MD, PHD [address] [place] [address],[address], [address], [facility] 10/03/2024 11:18:44 01/19/20 24 Prostate Surgery completed Tyra Almendarez [facility] 02/18/2024 14:53:31 02/09/20 18 colonoscopy completed Tyra Fryarian [facility] 02/18/2024 14:53:56 Imaging Results None recorded. Procedure Notes None recorded. Medical Equipment None Reported. Allergies Allergen ID Allergen Name Allergen Category Reaction Reaction Severity Criticality Documentation Date Start Date Code Code System Note Provider Name and Address Organization Details Recorded Time 250600 iodine medicatio n hives Not available Not available 10/03/20242019 5933 RxNorm Tammi arce [facility] 11:12:22 Medications Name Sig [...] Updated DateTime 10/03/2024 170.18 cm 38.8 kg/m2 881460.91 g Tammi cavazos [facility] 10/03/2024 11:12:19 Date Recorded Body height Body mass index (BMI) Body weight Provider Name and Address Organization Details Last Updated DateTime 02/18/2024 170.18 cm 38.8 kg/m2 052378.91 evaristo Shahrk [facility] 02/18/2024 14:48:42 Social History Question Answer Notes LastModified by Organizat ion Details LastModified Time Tobacco Smoking Status Former Smoker Tyra Shahrk arce [facility] 02/18/2024 14:52:27 What Is Your Level Of [...] le 02/18/2024 14:51:39 Medical History Condition Response Diabetes Y Sexually Transmitted Infection N Bleeding Disorder N High Blood Pressure Y Kidney Stones N Cancer N Lung Disease N Depression N High Cholesterol Y GERD/Acid Reflux N Heart Disease N Immunizations Vaccine Type Date Status Note Provider Nam e and Address Organization Details Recorded Time Influenza, split virus, quadrivalent, preservative 5 completed [facility] 14:48:50 Influenza, split virus, quadrivalent, preservative 1 completed [facility] 02/18/2024 14:48:50 Influenza, recombinant, quadrivalent, PF 9 completed [facility] 02/18/2024 14:48:50 zoster recombinant 2 completed [facility] 02/18/2024 14:48:50 zoster recombinant 2 completed [facility] 02/18/2024 14:48:50 Influenza, adjuvanted, quadrivalent, PF 3 completed [facility] 02/18/2024 14:48:50 COVID-19, mRNA, LNP-S, PF, 100 mcg/0.5mL dose or 50 mcg/0.25mL dose 1 completed Tyra arce [facility] 02/18/2024 14:48:50 COVID-19, mRNA, LNP-S, PF, 100 mcg/0.5mL dose or 50 mcg/0.25mL dose 1 [facility] 02/18/2024 14:48:50 COVID-19, mRNA, LNP-S, PF, 100 mcg/0.5mL dose or 50 mcg/0.25mL dose 2 [facility] 02/18/2024 14:48:51 Pneumococcal conjugate PCV20, polysaccharide [id number] conjugate, adjuvant, PF 3 completed [facility] 02/18/2024 14:48:51 COVID-19, mRNA, LNP-S, bivalent, PF, 30 mcg/0.3 mL dose 2 completed [facility] 02/18/2024 14:48:51 COVID-19, mRNA, LNP-S, PF, 50 mcg/0.5 mL 3 completed Tyra Shahanakeye null, [facility] 02/18/2024 14:48:51 pneumococcal polysaccharide PPV23 1 completed [facility] 02/18/2024 14:48:51 influenza, unspecified formulation 3 completed [facility] 02/18/2024 14:48:51 influenza, unspecified formulation 0 completed [facility] 02/18/2024 14:48:51 Tdap 7 completed Tyra Calhounkeye [facility] 02/18/2024 14:48:51 Pneumococcal conjugate PCV 13 6 completed Tyra Calhounkeye [facility] 02/18/2024 14:48:51 Influenza, high-dose, trivalent, PF 7 completed [facility] 02/18/2024 14:48:51 Td (adult), 5 Lf tetanus toxoid, preservative free, adsorbed 8 completed [facility] 02/18/2024 14:48:51 Influenza, split virus, quadrivalent, PF 7 completed [facility] 02/18/2024 14:48:51 Influenza, split virus, quadrivalent, PF 0 completed [facility] 02/18/2024 14:48:51 Influenza, split virus, quadrivalent, PF 8 completed Tyra Erickson arce, [facility] 02/18/2024 14:48:51 Influenza, split virus, quadrivalent, PF 7 completed Tyra Erickson null, [facility] 02/18/2024 14:48:51 Influenza, split virus, quadrivalent, PF 2 completed Tyra Erickson arce, [facility] 02/18/2024 14:48:51 Past Encounters Encounter ID Performer Location Encounter Start Date Encounter Closed Date Diagnosis/Indication Diagnosis SNOMED-CT Code Diagnosis ICD10 Code Diagnosis Note [id number] HERNAN HUYNH PA-C [facility] [address] [place] [address] 02/18/2024 14:32:43 02/29/2024 12:35:21 Abscess of prostate 3031296 N41.2 Discussed pathology with Charito jack -- will follow up in 6 monthsOn Bactrim per ID and will be following up with them soonWill check urine culture today given his worsening incontinen ce Benign pro static hyperplasia with outflow obstruction 444164993 N40.1 S/p TURP, prostate abscess unroofing 01/18 (Kandy vanegas)Still having some incontinen ce, managed with depends at this timeDiscus sed prolonged course of healing, incontinen ce may yet improve as he is only a few weeks out from surgery but due to the size/locat ion of his abscess this may be a chronic issue [id number] Glen jack MD, PHD [facility] [address] [place] [address] 10/03/2024 10:18:18 10/08/2024 09:54:55 Abscess of prostate 9633180 N41.2 Benign pro static hyperplasia with outflow obstruction 511278350 N40.1 Male urina ry stress incontinence 109233142 N39.3 Health Concerns Section Related Observation LastModified by Organization Detai ls LastModified Time None Recorded Concern Status LastModified by Organization Details LastModified Time None Recorded Advance Directives Directive None Recorded Payers Insurance Date Sequence Insurance Name Policy Number Policy Bettencourt Covered Member ID Bettencourt Member ID Guarantor Name 10/08/2024 1 [facility] (MEDICARE REPLACEMENT/A DVANTAGE - PPO) [id number] J[address] [place] [id number] Juma Evelin [place] Notes Date Note Type Note Provider Name and Address Organization Details Recorded Time 02/18/2024 text/html 68 yo M presents for prostate abscess follow up. Recently admitted to [facility] with urosepsis with finding of prostate abscess, now s/p TURP and prostate abscess unroofing with Dr Chavez on 01/19/24. Postoperatively was weaned from CBI and discharged on 6 week course of Septra per ID. He was discharge with breaux x1 week, removed without issue in [place]. Was then admitted to [facility] with hypokalemia a couple weeks ago. 02/05/24 [...] Mhx: T2DM, on warfarin HERNAN HUYNH PA-C [address] [place] [address],[address], [place], [address], [facility] 02/19/2024 14:59:15 10/03/2024 text/html 69M presents for prostate abscess follow up. Feeling bloated last few months. 01/19/24: TUR/unroofing prostate abscess:Surgical pathology with prostatic hyperplasia and chronic active prostatitis but also notable forRare foci of atypical B-cells, positive for clonal B-cell gene rearrangement: Suspicious for involvement by B-cell lymphoma.Referral was made to [facility]. LUTS: some leakage; improving somewhat, uses 6-8 pads/day MRI prostate (09/23/24): 39g, resolved abscess, no suspicious lesions, no LAD PMH: DM2, AFib PSA results10/03/24: 0.11 Glen Chavez MD, PHD [address] [facility] [address],[place] [place] [address], [place], [address], [facility] 10/03/2024 11:47:56
--- OUTSIDE RECORDS SUMMARY | 2025-04-01 12:21 | XMS_ITS | Clinical Summary ---
Author Organization [employer] [facility] Address [address] [place] [address] Care Team Providers Care Searchlight Operator Name Role Phone Romeo Mendez MD Primary Care Provider Allergies Active Allergy Reactions Criticality Noted Date Comments Iodine Hives 10/08/2019 Medications Sgzeh-[id number] sh Oil 1,000 mg (120 mg-180 mg) [...] be used to read blood sugars, follow pantograph machine set up operator directions. 9 Each 3 06/21/20 23 Active Dexcom G7 Credit Department Manager for continuous blood glucose monitor (CGM)Indications:U ncontrolled type 2 diabetes mellitus with hyperglycemia (HC) To be used to read blood sugars follow pantograph machine set up operator directions. 1 Each 06/21/20 23 Active acetaminophen (TYLENOL EXTRA STRGTH) 500 mg tablet Take 500-1,000 mg by mouth every 6 hours if needed for Pain. Max acetaminophen dose: 4000mg in 24 hrs. 0 07/19/20 23 Active liraglutide (VICTOZA) 0.6 mg/0.1 mL (18 mg/3 mL) subcutaneous pen Inject 1.8 mg subcutaneous once daily. 36 mL 4 11:42 AM SALES SOLUTIONS REPRESENTATIVE 10/25/19 24 Active Insulin [place], Disposable, (Novofine 32) 32 gauge x 1/4 To be used once daily with Victoza 200 Each 2 4 11:42 AM SALES SOLUTIONS REPRESENTATIVE 10/25/19 24 Active ferrous sulfate 325 mg [...] CDT Orders Only [facility] [address] [place] [address] Only, [facility] 01/05/2025 10:30 AM CDT Office Visit [facility] [address] [place] [address] Rony Larson MD Follow Up (On-going bloating and stomach pain) 01/05/2025 Travel from Last 3 Months Immunizations Immunization Administration [...] 04/23/2023, 03/07/2023, Additional history exists Influenza Vaccine (#1) 2025 , 07/03/2022, 07/04/2021, Additional history exists Tetanus booster 03/19/2027 03/19/2017, 12/09, 12/20/2007 Lipids for age 45-75 06/19/2028 06/19/2023, 06/19/2023, 03/07/2023, Additional history exists Hepatitis C screening for age 18-79 Completed 02/27/2020 Zoster (shingles) series for age 50+ Completed 07/03/2022, 02/22/2022 Pneumococcal series for age 50+ Completed 04/23/2023, 04/07/2016, 03/15/2011 Hepatitis B series for 19+ Aged Out [...] 01/05/2025 11: 29 AM CDT Chronic prostatitis LIPID PANEL W REFLEX MEASURED LDL Routine [...] Rony Larson MD HEMATOLOGY Final Resul t [facility] [address] [place] [address], [place] [phone] [facility] [address] [place] [phone] * POTASSIUM (01/05/2025 11:29 AM CDT) POTASSIUM 4.7 3.5 - 5.3 mmol/L [facility] Blood BLOOD SPECIMEN / Unknown 01/05/2025 11:29 AM CDT 01/05/2025 11:29 AM CDT Rony Larson MD CHEMISTRY Final Resul t [facility] [address] [address], [place] [phone] [facility] [address] [place] [phone] * CREATININE (01/05/2025 11:29 AM CDT) CREATININE 1.26 0.70 - 1.35 mg/dL [facility] EGFR 63 > OR = 60 mL/min/1.73 m2 [facility] Blood BLOOD SPECIMEN / Unknown 01/05/2025 11:29 AM CDT 01/05/2025 11:29 AM CDT Rony Larson MD CHEMISTRY Final Resul t [facility] [address] [place] [address], [place] [phone] [facility] [address] [place] [address] * HEPATIC FUNCTION PANEL (01/05/2025 11:29 AM CDT) PROTEIN, TOTAL 7.2 6.1 - 8.1 g/dL [...] Rony Larson MD CHEMISTRY Final Resul t Performing Organization Address City/[facility]/ZIP Co de Phone Number [facility] [address] [place] [address], [place] [phone] [facility] [address] [place] [address] * (ABNORMAL) LIPID PANEL W REFLEX MEASURED LDL (06/19/2023 11:13 AM CDT) CHOLESTEROL,TOTAL 159 100 - 199 mg/dL 06/20/2023 7:00 AM CDT [facility] Comment: Cholesterol, Total Reference Ranges Desirable <200 mg/dL Borderline 200-239 mg/dL High >=240 mg/dL TRIGLYCERIDES 530(H) <150 mg/dL 06/20/2023 7:00 AM T [facility] HDL CHOLESTEROL 30(L) >40 mg/dL 3 7:00 AM T [facility] NON-HDL CHOLESTEROL 129 <145 mg/dl 06/20/2023 7:00 AM T [facility] CHOL/HDL RATIO 5.30(H) <4.50 06/20/2023 7:00 AM T [facility] LDL CHOLESTEROL 7:00 AM T [facility] Comment:Invalid LDL when Tri g >400. VLDL CHOLESTEROL COMMENT 06/20/2023 7:00 AM [facility] Comment:Unable to calculate VLDL. PROVIDER ORDERED STATUS RANDOM 06/20/2023 7:00 AM T [facility] Blood BLOOD SPECIMEN / Unknown Venipuncture / Unknown 06/19/2023 11:13 AM CDT 06/19/2023 11:15 AM CDT us Opal Richards DO CHEMISTRY Final Resu lt [facility] [address] [place] [address], * ANTI HCV (02/27/2020 2:02 PM CDT) HEPATITIS C ANTIBODY Non-React gennaro Non-React gennaro 02/27/2020 8:36 PM CDT [facility] Comment:Antibodies to HCV no t detected; does not exclude the possibility of exposure to HCV. Blood BLOOD SPECIMEN / Unknown Butterfly / Unknown 02/27/2020 2:02 PM CDT 02/27/2020 2:03 PM CDT us Radha Prieto MD SEND OUTS Final Resul t [facility] [address] [place] [address], [place] * SCAN-COLONOSCOPY (12/31/2017 12:00 AM CDT) [...] MRSA risk factors. #1 +MRSA 01/17/24 nares; 2016 blood exclusions for contact precaution discontinuation (if > 12 months since positive culture): resides in acute/chcf care, receiving hemodialysis, has chronic open wounds/skin damage, has long-term percutaneous indwelling medical devices Exclusions for nares collection (if <12 months since positive culture) include all of the previous exclusions plus patients on antibiotics 7 days prior to collection 01/17/2024 01/17/2024 Insurance [facility] MR Advance Directives * Full Code (Latest Code Status on File) Date Activated Date Inactivated Comments 01/17/2024 5:28 AM 01/23/2024 3:44 PM Question Answer Comments Code Status Discussion: Reviewed Preferences Care Teams Searchlight Operator Relationship Specialty Start Date End Date Romeo Mendez MD [address] [place] [address] PCP - General Internal Medicine 12/05/24
--- NOTE | 2025-04-01 12:43 | CRLHL7_ITS ---
For Patients: As a result of the Cures Act, medical imaging exams and procedure reports are released immediately into your electronic medical record. You may view this report before your referring provider. If you have questions, please contact your health care provider. INDICATION: : Shortness of breath, possible heart failure COMPARISON: Chest radiograph on March 11, 2025 TECHNIQUE: One view(s) of the chest FINDINGS/IMPRESSION: The cardiomediastinal silhouette is stable. Low lung volumes. Gradual increased opacification of the left thorax likely secondary to patient body habitus and positioning, versus layering pleural effusion. There is otherwise no focal airspace consolidation and no pneumothorax. No displaced fractures. Dictated by Keyshawn Luther MD @ 04/01/2025 1:37:06 PM (Electronically Signed)
--- NOTE | 2025-04-01 12:46 | ED.SOB ---
HPI - SOB/Dyspnea General Date Seen: 04/01/25 Chief Complaint: Shortness of Breath/Dyspnea Stated Complaint: hard time to breath Time Seen by Provider: 04/01/25 12:26 Source: patient Mode of arrival: ambulatory Limitations: no limitations History of Present Illness HPI Narrative: Patient is a 69-year-old male presenting to the emergency department for shortness of breath. He states he has a history of heart issues from previous MRSA bacteremia causing mild reduction in ejection fraction. Was previously on diuretic but no longer on any. States he has been having increased shortness of breath and lower extremity sterilely going on since the used DN due to known of this year. In that time frame he states he is VII lb. Was previously able to lay flat distended bile has to sit up in a chair. There the swelling started around his ankle and has progressed and now being swollen up to his thighs. Denies having swelling this bad before. Has also noticed increased swelling in his abdomen. The abdominal swelling has started over year ago and has been evaluated but has gotten worse over the past month. Does have chronic right lower quadrant pain but the rest of his abdominal tenderness seems to be new he states. Denies any fevers or chills. Shortness of breath has been gradually getting worse but got acutely worse this morning causing come to the emergency department. Former cigar smoker with 20+ years ago. No history of lung disease and does states he has some chronic the right right-sided lung pain that seems worse today. Does not wear oxygen at home. Denies headache, lightheadedness, dizziness, weakness, numbness, headache diarrhea, constipation, nausea. Related Data Home Medications ?Medication ?Instructions ?Recorded ?Confirmed amlodipine 10 mg tablet 10 mg PO DAILY 11/13/24 04/01/25 lisinopril 40 mg tablet 40 mg PO DAILY 11/13/24 04/01/25 multivitamin (Daily Multi-Vitamin 1 tab PO DAILY 11/13/24 04/01/25 tablet) omega 0-wkp-uye-fish oil 1,000 mg 1 cap PO DAILY 11/13/24 04/01/25 (120 mg-180 mg) capsule (Fish Oil) insulin glargine 100 unit/mL (3 45 unit subcut BID 03/11/25 04/01/25 mL) subcutaneous pen (Lantus Solostar U-100 Insulin) Previous Rx's ?Medication ?Instructions ?Recorded metoprolol tartrate 100 mg tablet 100 mg PO BID #90 tabs 07/17/24 rosuvastatin 20 mg tablet 20 mg PO QPM #90 tabs 11/20/24 blood-glucose sensor (Dexcom G7 #3 ea 01/21/25 Sensor device) insulin aspart U-100 100 unit/mL 25 unit (0.25 mL) subcut TIDWMEAL 01/21/25 (3 mL) subcutaneous pen (Novolog #27 mL FlexPen U-100 Insulin aspart) metformin 500 mg tablet,extended 1,000 mg (2 x 500 mg) PO BID #90 01/21/25 release 24 hr tabs warfarin 5 mg tablet 7.5 mg (1.5 x 5 mg) PO DAILY #60 02/26/25 tabs Allergies Allergy/AdvReac Type Severity Reaction Status Date / Time No Known Drug Allergies Allergy Verified 04/01/25 15:13 Review of Systems Status of ROS: Reports: 10 or more systems reviewed and unremarkable except as noted in History and below PFSH PFS Medical History Cholelithiasis ?K80.20 - Calculus of gallbladder without cholecystitis without obstruction (ICD-10) BPH loc w urin obs/LUTS ?N40.1 - Benign prostatic hyperplasia with lower urinary tract symptoms (ICD-10) MRSA bacteremia ?R78.81 - Bacteremia (ICD-10) ?B95.62 - Methicillin resistant Staphylococcus aureus infection as the cause of diseases classified elsewhere (ICD-10) Mural thrombus of heart ?I51.3 - Intracardiac thrombosis, not elsewhere classified (ICD-10) Abscess of prostate (01/2024) ?N41.2 - Abscess of prostate (ICD-10) CKD (chronic kidney disease) stage 2, GFR 60-89 ml/min ?N18.2 - Chronic kidney disease, stage 2 (mild) (ICD-10) Sleep apnea (03/30/16) ?G47.30 - Sleep apnea, unspecified (ICD-10) Right atrial thrombus (10/08/19) ?I51.3 - Intracardiac thrombosis, not elsewhere classified (ICD-10) Patent foramen ovale (10/09/16) ?Q21.12 - Patent foramen ovale (ICD-10) Obesity, morbid (03/07/23) ?E66.01 - Morbid (severe) obesity due to excess calories (ICD-10) Mixed hyperlipidemia (03/19/17) ?E78.2 - Mixed hyperlipidemia (ICD-10) Hypertension (03/30/16) ?I10 - Essential (primary) hypertension (ICD-10) H/O bacterial endocarditis (06/21/18) ?Z86.79 - Personal history of other diseases of the circulatory system (ICD-10) Type 2 diabetes mellitus (03/03/11) ?E11.9 - Type 2 diabetes mellitus without complications (ICD-10) Cardiomyopathy (07/10/18) ?I42.9 - Cardiomyopathy, unspecified (ICD-10) Ascending aorta dilation (07/02/23) ?I77.810 - Thoracic aortic ectasia (ICD-10) Anticoagulation monitoring, INR range 2-3 (10/09/19) ?Z79.01 - alf (current) use of anticoagulants (ICD-10) Adenomatous colon polyp (01/01/18) ?D12.6 - Benign neoplasm of colon, unspecified (ICD-10) Surgical History H/O cystoscopy ?Z98.890 - Other specified postprocedural states (ICD-10) H/O colonoscopy ?Z98.890 - Other specified postprocedural states (ICD-10) Social History Narrative: Denies tobacco or alcohol use. Wishes to be FULL CODE. What is your current living situation?: I presently have a place to live Problems where you live: no known problems Problems where you live details: n/a In the past 12 months, utilities in danger of being shut off: no In past 12 months, lack of transportation kept you from medical appts, meetings, work, or getting things needed for daily living: no In the past 12 mos, have been you worried that your food would run out before you had money to buy more?: never true In the past 12 mos, the food you bought just didn't last and you didn't have money to buy more?: never true Smoking Status: Former smoker What tobacco products do you use: cigars Do you use any of these nicotine containing products: None Second hand tobacco smoke exposure: No How often do you have a drink containing alcohol: 2-4 times a month How often do you have six or more drinks on one occasion: Never AUDIT-C Alcohol total score: 2 Non-prescribed substance use: denies use Caffeine: Yes How often does anyone, including family, friends and others, physically hurt you: never How often does anyone, including family, friends and others, insult or talk down to you: rarely How often does anyone, including family, friends and others, threaten you with harm: never How often does anyone, including family, friends and others, scream or curse at you: never service: No Health Related Social Needs: Other personal risk factors, not elsewhere classified (Z91.89) Exam Narrative: Exam Narrative: Const: Well-nourished, Well-developed, in mild distress Eyes: PERRL, no conjunctival injection, and symmetrical lids HENT: Atraumatic external nose and ears. Moist mucous membranes. Neck: Symmetric, trachea midline, No thyromegaly. CVS: RRR, No murmurs or gallops. Peripheral pulses 2+ and equal in all extremities, +3 lower extremity edema going from his ankles all the way up past his knees. RESP: Tachypneic, Clear to auscultation bilaterally. GI: Diffuse abnormal tenderness, distention of the abdomen noted, No rebound or guarding. MSK:Extremities w/o deformity, Normal Active ROM Skin: Warm, Dry. No rashes or lesions. Neuro: Normal Muscle tone, No focal neurological deficits. Psych: Awake, Alert, & Oriented x3. Appropriate mood and affect. Const: Vital Signs, click to edit/add: Vital Signs - 24 hr 04/01/25 12:19 04/01/25 12:21 04/01/25 12:23 Temperature 95.2 F L Pulse Rate Pulse Rate [Pulse Oximeter] 65 Respiratory Rate 28 H Blood Pressure Blood Pressure [Ri ght Upper Arm] 171/69 H Pulse Oximetry 80 L 80 L 91 Oxygen Delivery Me thod Room Air Room Air Nasal Cannula Oxygen Flow Rate 4 04/01/25 12:32 04/01/25 12:45 04/01/25 13:00 Temperature Pulse Rate 64 61 59 L Pulse Rate [Pulse Oximeter] Respiratory Rate 28 H Blood Pressure Blood Pressure [Ri ght Upper Arm] Pulse Oximetry 92 92 90 Oxygen Delivery Me thod Nasal Cannula Oxygen Flow Rate 4 04/01/25 13:11 04/01/25 13:15 04/01/25 13:28 Temperature Pulse Rate 61 Pulse Rate [Pulse Oximeter] Respiratory Rate 31 H 19 Blood Pressure 138/68 Blood Pressure [Ri ght Upper Arm] Pulse Oximetry 90 92 Oxygen Delivery Me thod Nasal Cannula Oxygen Flow Rate 4 04/01/25 13:30 04/01/25 13:45 04/01/25 14:00 Temperature Pulse Rate 60 62 58 L Pulse Rate [Pulse Oximeter] Respiratory Rate 26 H 35 H 17 Blood Pressure Blood Pressure [Ri ght Upper Arm] Pulse Oximetry 92 91 88 Oxygen Delivery Me thod Oxygen Flow Rate 04/01/25 14:04 04/01/25 14:30 04/01/25 14:44 Temperature Pulse Rate 58 L 58 L Pulse Rate [Pulse Oximeter] Respiratory Rate 20 32 H 10 L Blood Pressure 130/60 Blood Pressure [Ri ght Upper Arm] Pulse Oximetry 92 90 Oxygen Delivery Me thod Oxygen Flow Rate 04/01/25 14:45 04/01/25 15:00 04/01/25 15:33 Temperature Pulse Rate 58 L 57 L Pulse Rate [Pulse Oximeter] Respiratory Rate 0 L 25 H Blood Pressure Blood Pressure [Ri ght Upper Arm] Pulse Oximetry 91 96 Oxygen Delivery Me thod Oxygen Flow Rate Course Vital Signs Vital signs: Initial Vital Signs Pulse Oximetry 80 L 04/01/25 12:19 Oxygen Delivery Method Room Air 04/01/25 12:19 Vital Signs Pulse Oximetry 80 L 04/01/25 12:19 Oxygen Delivery Method Room Air 04/01/25 12:19 Temperature 95.2 F L 04/01/25 12:21 Pulse Rate 57 L 04/01/25 15:00 Respiratory Rate 25 H 04/01/25 15:00 Blood Pressure 130/60 04/01/25 14:44 Pulse Oximetry 96 04/01/25 15:33 Oxygen Delivery Method Nasal Cannula 04/01/25 13:11 Oxygen Flow Rate 4 04/01/25 13:11 Medications Administered Medications: Discontinued Medications Generic Name Dose Route Start Last Admin Trade Name Freq PRN Reason Stop Dose Admin Furosemide 40 mg 04/01/25 12:32 04/01/25 13:37 Furosemide 10 Mg/Ml Inj IVP 04/01/25 12:33 40 mg ONCE ONE Administration MDM - SOB/Dyspnea MDM Narrative Medical decision making narrative: Patient is a 69-year-old male presenting for shortness of breath. The differential diagnosis of shortness of breath is broad and includes common etiologies such as COPD, asthma, pneumonia, viral syndrome, etc. More serious etiologies considered include PE, CHF, coronary artery disease, pneumothorax, aortic dissection, aortic aneurysm. With his history and physical exam it seems most likely this is a CHF exacerbation. Is on this is at this we warfarin but will still check check for a PE. INR also checked. EKG troponin ordered look for cardiac abnormalities. BNP ordered to look for signs of CHF. Will also order CBC, CMP, viral swabs, magnesium. Lasix ordered. He is satting 91% on nasal cannula. Patient is feeling much better on the nasal cannula. States his breathing has improved quite a bit. His respiratory rate has improved to 20. Did try to move down to 3 L nasal cannula any he dropped to 88 %. Moved back up to 4 L. chest x-ray but inconclusive for possibly shows a pleural effusion. Lab work shows no concerning abnormalities. EKG shows no concerning abnormalities. Troponin within normal limits. His BNP is slightly elevated at 870 but actually is not as high as it was in previous hospitalizations. LFTs within normal limit. D-dimer within normal limits. No signs of infection at this time. Since he is having the abdominal pain and rather inconclusive chest x-ray we will do a CT scan chest abdomen pelvis better evaluation. This shows no acute concerning findings although he does have bilateral pleural effusions and increased body wall edema. He is doing well currently on nasal cannula. He was evaluated by respiratory therapy. Most likely his symptoms are from worsening heart failure. I believe he is safe it admission at this hospital. He is agreeable to this plan. Lab Data Labs: Lab Results 04/01/25 04/01/25 04/01/25 Range/Units 12:43 12:48 12:55 WBC (4.50-11.00) K/uL RBC (4.30-5.90) m/uL Hgb (13.5-17.5) gm/dL Hct (37.0-53.0) % MCV (80-100) fL MCH (26-34) pg MCHC (32-36) gm/dL RDW Coeff of Yunior (11.5-15.5) % Plt Count (140-440) K/uL Neut % (Auto) (42.0-72.0) % Lymph % (Auto) (20-44) % Humphreys % (Auto) (0.0-11.0) % Eos % (Auto) (0.0-7.0) % Baso % (Auto) (0.0-3.0) % Neut # (Auto) (1.7-7.0) K/uL Lymph # (Auto) (0.90-2.90) K/uL Humphreys # (Auto) (0.00-0.90) K/UL Eos # (Auto) (0.00-0.50) K/uL Baso # (Auto) (0.00-0.30) K/uL Abs Immat Gran (auto) (0.00-0.30) K/uL Imm/Tot Granulo (auto) % INR (0.91-1.10) D-Dimer Quant (PE/DVT) (0.00-0.50) ug/ml Sodium 139 (135-149) mmol/L Potassium 4.1 (3.6-5.1) mmol/L Chloride 105 (96-114) mmol/L Carbon Dioxide 28 (20-32) mmol/L Anion Gap 6 L (7-15) mEq/L BUN 12 (7-30) mg/dL Creatinine 0.9 (0.5-1.5) mg/dL Estimated Creat Clear 67.02 Estimated GFR 94 ml/min Glucose 95 (60-115) mg/dL Calcium 9.4 (8.4-10.6) mg/dL Magnesium 1.9 (1.5-2.6) mg/dL Total Bilirubin 0.9 (0.1-1.5) mg/dL AST 45 H (12-35) U/L ALT 40 (4-50) U/L Alkaline Phosphatase 58 (40-150) U/L NT-Pro-B Natriuret Pep 870 H (See Note) pg/mL Total Protein 7.3 (6.0-8.3) g/dL Albumin 4.1 (3.3-5.0) g/dL SARS-CoV-2 (PCR) Negative SARS-CoV-2 (Negative) Influenza Type A (PCR) Negative PCR FLU A (Negative) Influenza Type B (PCR) Negative PCR FLU B (Negative) RSV (PCR) Negative PCR RSV (Negative) POC Troponin I 0.02 (0.01-0.04) ng/ml 04/01/25 Range/Units 13:15 WBC 9.37 (4.50-11.00) K/uL RBC 4.97 (4.30-5.90) m/uL Hgb 14.5 (13.5-17.5) gm/dL Hct 44.9 (37.0-53.0) % MCV 90 (80-100) fL MCH 29 (26-34) pg MCHC 32 (32-36) gm/dL RDW Coeff of Yunior 14.6 (11.5-15.5) % Plt Count 199 (140-440) K/uL Neut % (Auto) 77.9 H (42.0-72.0) % Lymph % (Auto) 7.6 L (20-44) % Humphreys % (Auto) 11.0 (0.0-11.0) % Eos % (Auto) 2.5 (0.0-7.0) % Baso % (Auto) 0.5 (0.0-3.0) % Neut # (Auto) 7.30 H (1.7-7.0) K/uL Lymph # (Auto) 0.70 L (0.90-2.90) K/uL Humphreys # (Auto) 1.00 H (0.00-0.90) K/UL Eos # (Auto) 0.23 (0.00-0.50) K/uL Baso # (Auto) 0.05 (0.00-0.30) K/uL Abs Immat Gran (auto) 0.05 (0.00-0.30) K/uL Imm/Tot Granulo (auto) 0.5 % INR 2.25 H (0.91-1.10) D-Dimer Quant (PE/DVT) 0.03 (0.00-0.50) ug/ml Sodium (135-149) mmol/L Potassium (3.6-5.1) mmol/L Chloride (96-114) mmol/L Carbon Dioxide (20-32) mmol/L Anion Gap (7-15) mEq/L BUN (7-30) mg/dL Creatinine (0.5-1.5) mg/dL Estimated Creat Clear Estimated GFR ml/min Glucose (60-115) mg/dL Calcium (8.4-10.6) mg/dL Magnesium (1.5-2.6) mg/dL Total Bilirubin (0.1-1.5) mg/dL AST (12-35) U/L ALT (4-50) U/L Alkaline Phosphatase (40-150) U/L NT-Pro-B Natriuret Pep (See Note) pg/mL Total Protein (6.0-8.3) g/dL Albumin (3.3-5.0) g/dL SARS-CoV-2 (PCR) (Negative) Influenza Type A (PCR) (Negative) Influenza Type B (PCR) (Negative) RSV (PCR) (Negative) POC Troponin I (0.01-0.04) ng/ml Imaging Data Chest x-ray: Attestation: I have reviewed the pertinent imaging results. Radiologist's impression: The cardiomediastinal silhouette is stable. Low lung volumes. Gradual increased opacification of the left thorax likely secondary to patient body habitus and positioning, versus layering pleural effusion. There is otherwise no focal airspace consolidation and no pneumothorax. No displaced fractures. Dictated by Keyshawn Luther MD @ 04/01/2025 1:37:[address] scan abdomen pelvis: Attestation: I have reviewed the pertinent imaging results. Radiologist's impression: 1. No acute intra-abdominal or pelvic abnormality. Body wall edema has increased. 2. Cholelithiasis. 3. Pulmonary edema, small bilateral pleural effusions and bibasilar atelectasis. 4. Additional unchanged findings. Dictated by Guanaco Davila MD @ 04/01/2025 3:31:47 PM Please note that all CT scans at this facility use dose modulation, iterative reconstruction, and/or weight-based dosing when appropriate to reduce radiation dose to as low as reasonably achievable. Dictated by: Guanaco Davila MD @ 04/01/2025 15:32:00 ECG Data Attestation: I personally reviewed and interpreted this ECG as follows: Prior ECG tracings: available for review Interpretation: Normal sinus rhythm with a first-degree AV block. Rate of 64 beats per minute. Normal intervals, normal axis, no ST or T-wave abnormalities. Appears similar previous EKGs on file Discharge Plan Discharge Clinical Impression: Acute exacerbation of CHF (congestive heart failure) Qualifiers: Heart failure type: systolic Qualified Code(s): I50.23 - Acute on chronic systolic (congestive) heart failure Patient Disposition: Admitted As Observation Condition: Improved
[2025-04-01 13:15] LABS: Troponin, Point-of-Care* 0.02 ng/ml (0.01-0.04)
[2025-04-01 13:29] LABS: Hematocrit 44.9 % (37.0-53.0); Hemoglobin* 14.5 gm/dL (13.5-17.5); Immature Granulocytes Abs Auto 0.05 K/uL (0.00-0.30); Immature Granulocytes Pct Auto 0.5 %; Mean Corpuscular HGB Conc 32 gm/dL (32-36); Mean Corpuscular Hemoglobin 29 pg (26-34); Mean Corpuscular Volume 90 fL (80-100); RDW Coefficient of Variation % 14.6 % (11.5-15.5); Red Blood Count 4.97 m/uL (4.30-5.90); White Blood Count* 9.37 K/uL (4.50-11.00)
[2025-04-01 13:31] LABS: PCR FLU A Negative PCR FLU A (Negative); PCR FLU B Negative PCR FLU B (Negative); PCR RSV Negative PCR RSV (Negative); SARS PCR* Negative SARS-CoV-2 (Negative)
[2025-04-01 13:32] LABS: Albumin* 4.1 g/dL (3.3-5.0); Chloride* 105 mmol/L (96-114); Potassium* 4.1 mmol/L (3.6-5.1); Sodium* 139 mmol/L (135-149)
[2025-04-01 13:32] LABS: Lymphocytes Absolute Auto 0.70 K/uL (0.90-2.90); Slide Review Reflex No
[2025-04-01 13:34] LABS: Alanine Aminotransferase* 40 U/L (4-50); Aspartate Amino Transferase* 45 U/L (12-35); Blood Urea Nitrogen* 12 mg/dL (7-30); Creatinine* 0.9 mg/dL (0.5-1.5); Est. Creatinine Clearance* 67.02; Estimated Glomerular Filt Rate 94 ml/min
[2025-04-01 13:35] LABS: Alkaline Phosphatase* 58 U/L (40-150); Anion Gap 6 mEq/L (7-15); Bilirubin Total* 0.9 mg/dL (0.1-1.5); Calcium* 9.4 mg/dL (8.4-10.6); Carbon Dioxide* 28 mmol/L (20-32); Glucose* 95 mg/dL (60-115); Total Protein* 7.3 g/dL (6.0-8.3)
[2025-04-01] MEDS: FUROSEMIDE 10 MG/ML inj 40 MG IVP (13:37)
[2025-04-01 13:45] LABS: INR 2.25 (0.91-1.10); Prothrombin Time 26.0 Seconds
[2025-04-01 13:45] LABS: NT Pro B Type NatriureticPept* 870 pg/mL (See Note)
[2025-04-01 13:49] LABS: D Dimer Quantitative* 0.03 ug/ml (0.00-0.50)
--- NOTE | 2025-04-01 14:23 | CRLHL7_ITS ---
For Patients: As a result of the Century Cures Act, medical imaging exams and procedure reports are released immediately into your electronic medical record. You may view this report before your referring provider. If you have questions, please contact your health care provider. INDICATION: Shortness of breath. Diffuse abdominal pain/discomfort. CHF. TECHNIQUE: CT abdomen and pelvis acquired with 128 cc of Isovue 370 IV contrast. COMPARISON: CT abdomen and pelvis 03/04/2025. FINDINGS: Lower chest: Bilateral subtle interstitial and ground-glass opacities along with bibasilar atelectasis. New small bilateral pleural effusions. Mild cardiomegaly and coronary artery calcifications. No pericardial effusion. Liver: Fatty change and multiple cysts, as before. Spleen: Unremarkable. Pancreas: Unremarkable. Gallbladder and bile ducts: Cholelithiasis. Gallbladder is otherwise unremarkable. No biliary ductal dilatation. Kidneys: No urolithiasis, hydronephrosis or suspicious lesion. Adrenal glands: Unremarkable. GI tract: No obstruction or focal inflammatory changes. No free air or free fluid. Body wall edema has slightly increased. Lymph nodes: Retroperitoneal and iliac lymphadenopathy is unchanged. Vascular structures: Atherosclerotic disease. No abdominal aortic aneurysm. Pelvic Organs: Prostatomegaly and possible prior TURP, as before. Bladder as imaged is unremarkable. Bones: No acute or suspicious osseous abnormality. Degenerative changes spine and pelvis. IMPRESSION: 1. No acute intra-abdominal or pelvic abnormality. Body wall edema has increased. 2. Cholelithiasis. 3. Pulmonary edema, small bilateral pleural effusions and bibasilar atelectasis. 4. Additional unchanged findings. Dictated by Guanaco Davila MD @ 04/01/2025 3:31:47 PM Please note that all CT scans at this facility use dose modulation, iterative reconstruction, and/or weight-based dosing when appropriate to reduce radiation dose to as low as reasonably achievable. Dictated by: Guanaco Davila MD @ 04/01/2025 15:32:00 (Electronically Signed)
[2025-04-01 17:27] LABS: Lactate* 1.9 mmol/L (0.5-1.9)
--- NOTE | 2025-04-01 17:35 | PM.IMHP1 ---
Assessment and Plan Assessment and plan (1) Acute hypoxic respiratory failure: Problem comment: -likely secondary to exacerbation of congestive heart failure -currently patient needing oxygen at 4 liters/minute via nasal cannula -will treat for the cause and monitor Status: Acute (2) Acute exacerbation of CHF (congestive heart failure): Problem comment: -echo performed last November, ( 4 months ago ) showed reduced left ventricular systolic function with an ejection fraction of 40-45%. If he is does not improve on treatment he might need a repeat of the echocardiogram. -will start diuresing patient with a total dose of Lasix IV 60 mg today and will reassess tomorrow. -patient is currently on guideline-directed medical treatment for heart failure, he is currently on ACEI, a beta-ari. He might benefit from adding SGLT 2 inhibitors or spironolactone. -patient was not on a diuretic at home and he needs to be discharged on an oral diuretic -patient states that he never had heart catheterization but he had a stress test long time ago (around 2017) and it was negative at that time. He will need to following up with Cardiology as an outpatient. Status: Acute (3) History of bacteremia: Problem comment: -Hx of multiple MRSA bacteremia (urogenital infection), most recent bacteremia was in November 2024. -patient does not have any signs or symptoms of infection right now. He denied urinary symptoms. -F/up urinalysis and blood cultures. Status: Acute (4) Abdominal pain: Problem comment: -patient has a chronic pain in the area of his right lower abdominal quadrant/right inguinal area -differential diagnosis includes inguinal hernia that got worse with severe abdominal wall edema. -CT scan of the abdomen and pelvis on admission was unremarkable Status: Chronic (5) Cardiomyopathy: Problem comment: Echo 11/13/2024 Final Impressions: 1. Technically limited exam. 2. Normal LV size, mildly increased wall thickness, mildly reduced global systolic function with an estimated EF of 40 - 45%. 3. Mild concentric left ventricular hypertrophy. 4. Entire inferior wall is hypokinetic. 5. Mildly enlarged left atrium. 6. Right ventricular cavity size is mildly enlarged, global systolic RV function is borderline reduced. 7. Dilated sinus of Valsalva, diameter of 4.3 cm (upper limt of normal for age, sex, and BSA is 4.2 cm*), Height Index 2.53 cm/m. 8. No significant valve disease detected. Status: Acute (6) Anticoagulation monitoring, INR range 2-3: Problem comment: For h/o R mural thrombus and & PFO. Goal 2-3. Status: Chronic (7) Type 2 diabetes mellitus: Problem comment: -uncontrolled diabetes. Patient has a PCP and follows up here at our clinic -last A1c >10 Status: Chronic (8) Mixed hyperlipidemia: Problem comment: On a statin Status: Chronic (9) Sleep apnea: Status: Chronic (10) Hypertension: Status: Chronic Total Time Spent Total Time Spent: Time spent: Today I spent 75 minutes seeing the patient, discussing the patient with ER staff, reviewing Expanse and EPIC notes/diagnostics, discussing the care plan with our care time that includes social work, PT/OT, pharmacy, RT, nursing home and documenting my impressions and plan in the medical record. Hospitalist- H&P: HPI History of Present Illness Date Seen: 04/01/25 Chief complaint: hard time to breath Narrative: Juma South is a 69 year old male with past medical history of hypertension, hyperlipidemia, diabetes, chronic cardiomyopathy, history of multiple MRSA bacteremias secondary to UTI, on chronic warfarin treatment due to history of right mural thrombus who presents to the ED complaining of shortness of breath that has been worsening over the last 2 weeks, but according the patient he was short of breath for a few months now. Patient denies fevers, chills, recent infections, cough or chest pain. He states that he gained 20-25 lb over the last couple of months unintentionally. He also is having severe bilateral lower limb edema and severe abdominal wall edema. He added that there is some tenderness in the area of his right lower abdominal quadrant/right inguinal area that has been there for a long time. Patient has history of cardiomyopathy but he states that he was not on a diuretic for a while. He also added that he does not have any urinary symptoms right now. At the ED, patient presented with hypoxia his O2 sat was low 80s on room air and improved when patient was put on for L per minute oxygen nasal cannula. Chest x-ray showed congestion and bilateral pleural effusion. His abdominal/pelvis CT scan was unremarkable except for abdominal wall edema and cholelithiasis, gallbladder is otherwise unremarkable. No biliary ductal dilatation. No leukocytosis. No kidney injury. Pro BNP elevated. Troponin was negative and EKG was unremarkable. INR at target. Patient was given IV Lasix 40 mg at the ED. Review of Systems Status of ROS: Reports: 6 or more systems reviewed and unremarkable except as noted in History and below Medical Decision Making Medical Decision Making Has patient completed a Health Care Directive: No PFSH PFSH Medical History Cholelithiasis ?K80.20 - Calculus of gallbladder without cholecystitis without obstruction (ICD-10) BPH loc w urin obs/LUTS ?N40.1 - Benign prostatic hyperplasia with lower urinary tract symptoms (ICD-10) MRSA bacteremia ?R78.81 - Bacteremia (ICD-10) ?B95.62 - Methicillin resistant Staphylococcus aureus infection as the cause of diseases classified elsewhere (ICD-10) Mural thrombus of heart ?I51.3 - Intracardiac thrombosis, not elsewhere classified (ICD-10) Abscess of prostate (01/2024) ?N41.2 - Abscess of prostate (ICD-10) CKD (chronic kidney disease) stage 2, GFR 60-89 ml/min ?N18.2 - Chronic kidney disease, stage 2 (mild) (ICD-10) Sleep apnea (03/30/16) ?G47.30 - Sleep apnea, unspecified (ICD-10) Right atrial thrombus (10/08/19) ?I51.3 - Intracardiac thrombosis, not elsewhere classified (ICD-10) Patent foramen ovale (10/09/16) ?Q21.12 - Patent foramen ovale (ICD-10) Obesity, morbid (03/07/23) ?E66.01 - Morbid (severe) obesity due to excess calories (ICD-10) Mixed hyperlipidemia (03/19/17) ?E78.2 - Mixed hyperlipidemia (ICD-10) Hypertension (03/30/16) ?I10 - Essential (primary) hypertension (ICD-10) H/O bacterial endocarditis (06/21/18) ?Z86.79 - Personal history of other diseases of the circulatory system (ICD-10) Type 2 diabetes mellitus (03/03/11) ?E11.9 - Type 2 diabetes mellitus without complications (ICD-10) Cardiomyopathy (07/10/18) ?I42.9 - Cardiomyopathy, unspecified (ICD-10) Ascending aorta dilation (07/02/23) ?I77.810 - Thoracic aortic ectasia (ICD-10) Anticoagulation monitoring, INR range 2-3 (10/09/19) ?Z79.01 - MCFP (current) use of anticoagulants (ICD-10) Adenomatous colon polyp (01/01/18) ?D12.6 - Benign neoplasm of colon, unspecified (ICD-10) Surgical History H/O cystoscopy ?Z98.890 - Other specified postprocedural states (ICD-10) H/O colonoscopy ?Z98.890 - Other specified postprocedural states (ICD-10) Social History Narrative: Denies tobacco or alcohol use. Wishes to be FULL CODE. What is your current living situation?: I presently have a place to live Problems where you live: no known problems Problems where you live details: n/a In the past 12 months, utilities in danger of being shut off: no In past 12 months, lack of transportation kept you from medical appts, meetings, work, or getting things needed for daily living: no In the past 12 mos, have been you worried that your food would run out before you had money to buy more?: never true In the past 12 mos, the food you bought just didn't last and you didn't have money to buy more?: never true Highest level of school completed/degree received: Bachelor's degree Smoking Status: Former smoker What tobacco products do you use: cigars Do you use any of these nicotine containing products: None Second hand tobacco smoke exposure: No How often do you have a drink containing alcohol: 2-4 times a month How often do you have six or more drinks on one occasion: Never AUDIT-C Alcohol total score: 2 Non-prescribed substance use: denies use Caffeine: Yes How often does anyone, including family, friends and others, physically hurt you: never How often does anyone, including family, friends and others, insult or talk down to you: rarely How often does anyone, including family, friends and others, threaten you with harm: never How often does anyone, including family, friends and others, scream or curse at you: never service: No Health Related Social Needs: Other personal risk factors, not elsewhere classified (Z91.89) Meds Home Medications and Allergies Home Medications ?Medication ?Instructions ?Recorded ?Confirmed ?Type metoprolol tartrate 100 mg tablet 100 mg PO BID #90 tabs 07/17/24 04/01/25 Rx amlodipine 10 mg tablet 10 mg PO DAILY 11/13/24 04/01/25 History lisinopril 40 mg tablet 40 mg PO DAILY 11/13/24 04/01/25 History multivitamin (Daily Multi-Vitamin 1 tab PO DAILY 11/13/24 04/01/25 History tablet) omega 0-nvl-yqx-fish oil 1,000 mg 1 cap PO DAILY 11/13/24 04/01/25 History (120 mg-180 mg) capsule (Fish Oil) rosuvastatin 20 mg tablet 20 mg PO QPM #90 tabs 11/20/24 04/01/25 Rx blood-glucose sensor (Dexcom G7 #3 ea 01/21/25 03/11/25 Rx Sensor device) insulin aspart U-100 100 unit/mL 25 unit (0.25 mL) subcut TIDWMEAL 01/21/25 04/01/25 Rx (3 mL) subcutaneous pen (Novolog #27 mL FlexPen U-100 Insulin aspart) metformin 500 mg tablet,extended 1,000 mg (2 x 500 mg) PO BID #90 01/21/25 04/01/25 Rx release 24 hr tabs warfarin 5 mg tablet 7.5 mg (1.5 x 5 mg) PO DAILY #60 02/26/25 04/01/25 Rx tabs insulin glargine 100 unit/mL (3 45 unit subcut BID 03/11/25 04/01/25 History mL) subcutaneous pen (Lantus Solostar U-100 Insulin) Allergies Allergy/AdvReac Type Severity Reaction Status Date / Time No Known Drug Allergies Allergy Verified 04/01/25 15:13 Exam Narrative: Exam Narrative: Physical exam GENERAL: Pt is using ext resp muscles, and he is not able to complete full sentences without catching his breath, currently on 4 L/min oxygen. HEAD AND NECK: Atraumatic, normocephalic CARDIOVASCULAR: RRR. Normal S1, S2. No murmurs. RESPIRATORY: Clear to auscultation B/L. Good air entry B/L. No wheezes or rhonchi. GASTROINTESTINAL: severe abdominal wall edema, mild tenderness to palpation at the area of Rt lower quadrant/ down to Rt inguinal area. NEUROLOGY: Alert, awake, oriented X 3. Normal speech. PSYCH: Normal mood, normal affect. Const: Vital Signs, click to edit/add: Vital Signs - 24 hr 04/01/25 12:19 04/01/25 12:21 04/01/25 12:23 Temperature 95.2 F L Pulse Rate Pulse Rate [Pulse Oximeter] 65 Pulse Rate [Right Radial] Respiratory Rate 28 H Blood Pressure Blood Pressure [Ri ght Arm] Blood Pressure [Ri ght Upper Arm] 171/69 H Pulse Oximetry 80 L 80 L 91 Oxygen Delivery Me thod Room Air Room Air Nasal Cannula Oxygen Flow Rate 4 04/01/25 12:32 04/01/25 12:45 04/01/25 13:00 Temperature Pulse Rate 64 61 59 L Pulse Rate [Pulse Oximeter] Pulse Rate [Right Radial] Respiratory Rate 28 H Blood Pressure Blood Pressure [Ri ght Arm] Blood Pressure [Ri ght Upper Arm] Pulse Oximetry 92 92 90 Oxygen Delivery Me thod Nasal Cannula Oxygen Flow Rate 4 04/01/25 13:11 04/01/25 13:15 04/01/25 13:28 Temperature Pulse Rate 61 Pulse Rate [Pulse Oximeter] Pulse Rate [Right Radial] Respiratory Rate 31 H 19 Blood Pressure 138/68 Blood Pressure [Ri ght Arm] Blood Pressure [Ri ght Upper Arm] Pulse Oximetry 90 92 Oxygen Delivery Me thod Nasal Cannula Oxygen Flow Rate 4 04/01/25 13:30 04/01/25 13:45 04/01/25 14:00 Temperature Pulse Rate 60 62 58 L Pulse Rate [Pulse Oximeter] Pulse Rate [Right Radial] Respiratory Rate 26 H 35 H 17 Blood Pressure Blood Pressure [Ri ght Arm] Blood Pressure [Ri ght Upper Arm] Pulse Oximetry 92 91 88 Oxygen Delivery Me thod Oxygen Flow Rate 04/01/25 14:04 04/01/25 14:30 04/01/25 14:44 Temperature Pulse Rate 58 L 58 L Pulse Rate [Pulse Oximeter] Pulse Rate [Right Radial] Respiratory Rate 20 32 H 10 L Blood Pressure 130/60 Blood Pressure [Ri ght Arm] Blood Pressure [Ri ght Upper Arm] Pulse Oximetry 92 90 Oxygen Delivery Me thod Oxygen Flow Rate 04/01/25 14:45 04/01/25 15:00 04/01/25 15:33 Temperature Pulse Rate 58 L 57 L Pulse Rate [Pulse Oximeter] Pulse Rate [Right Radial] Respiratory Rate 0 L 25 H Blood Pressure Blood Pressure [Ri ght Arm] Blood Pressure [Ri ght Upper Arm] Pulse Oximetry 91 96 Oxygen Delivery Me thod Oxygen Flow Rate 04/01/25 17:06 04/01/25 17:06 04/01/25 17:06 Temperature 96.8 F L Pulse Rate Pulse Rate [Pulse Oximeter] Pulse Rate [Right Radial] 60 Respiratory Rate 26 H 25 H Blood Pressure Blood Pressure [Ri ght Arm] 133/58 L Blood Pressure [Ri ght Upper Arm] Pulse Oximetry 90 90 90 Oxygen Delivery Me thod Nasal Cannula Nasal Cannula Oxygen Flow Rate 3 3 04/01/25 17:10 Temperature 96.8 F L Pulse Rate Pulse Rate [Pulse Oximeter] Pulse Rate [Right Radial] 60 Respiratory Rate 25 H Blood Pressure Blood Pressure [Ri ght Arm] 133/58 L Blood Pressure [Ri ght Upper Arm] Pulse Oximetry 90 Oxygen Delivery Me thod Nasal Cannula Oxygen Flow Rate 3 Hospitalist - H&P: Result Labs Labs: Short CBC 04/01/25 Range/Units 13:15 WBC 9.37 (4.50-11.00) K/uL Hgb 14.5 (13.5-17.5) gm/dL Hct 44.9 (37.0-53.0) % Plt Count 199 (140-440) K/uL BMP 04/01/25 12:55 Sodium 139 Potassium 4.1 Chloride 105 Carbon Dioxide 28 BUN 12 Creatinine 0.9 Glucose 95 Calcium 9.4 Liver Function 04/01/25 Range/Units 12:55 Total Bilirubin 0.9 (0.1-1.5) mg/dL AST 45 H (12-35) U/L ALT 40 (4-50) U/L Alkaline Phosphatase 58 (40-150) U/L Albumin 4.1 (3.3-5.0) g/dL ECG Attestation: I personally reviewed and interpreted this ECG as follows: ECG interpretation date: 04/01/25 Interpretation: sinus rhythm, 1st degree block, non-specific T-wave/ST changes Imaging CT scan - abdomen: Attestation: I have reviewed the pertinent imaging results. Radiologist's impression: INDICATION: Shortness of breath. Diffuse abdominal pain/discomfort. CHF. TECHNIQUE: CT abdomen and pelvis acquired with 128 cc of Isovue 370 IV contrast. COMPARISON: CT abdomen and pelvis 03/04/2025. FINDINGS: Lower chest: Bilateral subtle interstitial and ground-glass opacities along with bibasilar atelectasis. New small bilateral pleural effusions. Mild cardiomegaly and coronary artery calcifications. No pericardial effusion. Liver: Fatty change and multiple cysts, as before. Spleen: Unremarkable. Pancreas: Unremarkable. Gallbladder and bile ducts: Cholelithiasis. Gallbladder is otherwise unremarkable. No biliary ductal dilatation. Kidneys: No urolithiasis, hydronephrosis or suspicious lesion. Adrenal glands: Unremarkable. GI tract: No obstruction or focal inflammatory changes. No free air or free fluid. Body wall edema has slightly increased. Lymph nodes: Retroperitoneal and iliac lymphadenopathy is unchanged. Vascular structures: Atherosclerotic disease. No abdominal aortic aneurysm. Pelvic Organs: Prostatomegaly and possible prior TURP, as before. Bladder as imaged is unremarkable. Bones: No acute or suspicious osseous abnormality. Degenerative changes spine and pelvis. IMPRESSION: 1. No acute intra-abdominal or pelvic abnormality. Body wall edema has increased. 2. Cholelithiasis. 3. Pulmonary edema, small bilateral pleural effusions and bibasilar atelectasis. 4. Additional unchanged findings. Dictated by Guanaco Davila MD @ 04/01/2025 3:31:47 PM Please note that all CT scans at this facility use dose modulation, iterative reconstruction, and/or weight-based dosing when appropriate to reduce radiation dose to as low as reasonably achievable. Dictated by: Guanaco Davila MD @ 04/01/2025 15:32:00
[2025-04-01] MEDS: FUROSEMIDE 10 MG/ML inj 20 MG IVP (18:12)
[2025-04-01 19:49] LABS: Appearance Urine Clear (Clear)
[2025-04-01] MEDS: SODIUM CHLORIDE 0.9 % (FLUSH) 10 ML SYRINGE 5 ML IVF (20:38)
[2025-04-01] MEDS: METOPROLOL TARTRATE 100 MG TABLET PO (20:39)
[2025-04-01] MEDS: ROSUVASTATIN CALCIUM 10 MG TABLET 20 MG PO (20:39)
[2025-04-02] VITALS (14 sets, daily range): BP systolic 114–158; BP diastolic 46–68; PULSE 56–76; RESP 18–24; TEMP 36.2–37.1; O2SAT 90–94
--- NOTE | 2025-04-02 06:36 | PC.NURSE ---
Pt alert and oriented. Pt had no complaints of pain. Pt maintained oxygen saturations low 90?s on 3 Liters. Pt had SOB but stated that it was better than earlier today.?Pt up independently in room.
[2025-04-02 06:40] LABS: HCO3 VBG 31 mmol/L (21-28); PCO2 VBG 50 mmHG (40-50); PO2 VBG 37.4 mmHG (25-47); pH VBG 7.396 (7.32-7.43)
[2025-04-02 06:42] LABS: Hematocrit 43.4 % (37.0-53.0); Hemoglobin* 14.0 gm/dL (13.5-17.5); Mean Corpuscular HGB Conc 32 gm/dL (32-36); Mean Corpuscular Hemoglobin 29 pg (26-34); Mean Corpuscular Volume 91 fL (80-100); Red Blood Count 4.79 m/uL (4.30-5.90); White Blood Count* 7.32 K/uL (4.50-11.00)
[2025-04-02 06:44] LABS: Slide Review Reflex No
[2025-04-02 06:58] LABS: Albumin* 3.9 g/dL (3.3-5.0); Chloride* 103 mmol/L (96-114); INR 2.35 (0.91-1.10); Potassium* 3.7 mmol/L (3.6-5.1); Prothrombin Time 26.8 Seconds; Sodium* 139 mmol/L (135-149)
[2025-04-02 07:00] LABS: Anion Gap 6 mEq/L (7-15); Blood Urea Nitrogen* 15 mg/dL (7-30); Carbon Dioxide* 30 mmol/L (20-32); Creatinine* 1.0 mg/dL (0.5-1.5); Est. Creatinine Clearance* 67.02; Estimated Glomerular Filt Rate 82 ml/min
[2025-04-02 07:01] LABS: Alanine Aminotransferase* 40 U/L (4-50); Alkaline Phosphatase* 58 U/L (40-150); Aspartate Amino Transferase* 42 U/L (12-35); Bilirubin Total* 0.8 mg/dL (0.1-1.5); Calcium* 9.2 mg/dL (8.4-10.6); Glucose* 100 mg/dL (60-115); Total Protein* 7.0 g/dL (6.0-8.3)
[2025-04-02] MEDS: AMLODIPINE 10 MG TABLET PO (09:14)
[2025-04-02] MEDS: FUROSEMIDE 10 MG/ML inj 40 MG IVP ×2 (09:14→15:33)
[2025-04-02] MEDS: METOPROLOL TARTRATE 100 MG TABLET PO ×2 (09:14→21:17)
[2025-04-02] MEDS: WARFARIN 5 MG TABLET 7.5 MG PO (09:15)
[2025-04-02] MEDS: SODIUM CHLORIDE 0.9 % (FLUSH) 10 ML SYRINGE 5 ML IVF ×3 (09:16→21:18)
--- NOTE | 2025-04-02 09:36 | NUTR.NU ---
RDN with nutrition screen for diabetic diet and heart healthy diet. Patient admitted with acute hypoxic respiratory failure likely secondary to CHF exacerbation. Medical history includes, but not limited to abdominal pain, type 2 diabetes mellitus, mixed hyperlipidemia, cardiomyopathy, sleep apnea, and hypertension. Patient reports a fair appetite and notes eating smaller frequent meals at home. Per rug cutter, patient ate 100% of dinner yesterday and patient reports eating 100% of breakfast this morning consisting of omelette, oatmeal, low sodium tomato juice, applesauce, and yogurt. Current weight 304lbs, height 5ft 7in, and BMI 47.7 kg/m2. Patient reports a ~20-25lb weight gain in ~2 months. Weight gain noted per weight history with weight of 294lbs 02/18/25, weight of 288lbs 01/21/25, weight of 276lbs 11/27/24, and weight of 266lbs 08/27/24. Of note, patient is currently receiving Lasix and has severe bilateral lower limb edema and severe abdominal wall edema. RDN anticipate's patient's weight will continue to fluctuate based on diagnosis and fluid status. Patient reports being familiar with the heart healthy and diabetic diet. Patient declined nutrition education and materials at this time. RDN will continue to follow prn.
--- NOTE | 2025-04-02 10:34 | P.IMPN_ITS ---
Assessment and Plan Assessment and plan (1) Acute hypoxic respiratory failure: Problem comment: -likely secondary to exacerbation of congestive heart failure -currently patient needing oxygen at 4 liters/minute via nasal cannula -will treat for the cause and monitor Status: Acute (2) Cardiomyopathy: Problem comment: Echo 11/13/2024 while admitted for bacteremia in [place]. -no outpatient follow-up for ischemic workup -repeating echo -POC trop negative in the ED Final Impressions: 1. Technically limited exam. 2. Normal LV size, mildly increased wall thickness, mildly reduced global systolic function with an estimated EF of 40 - 45%. 3. Mild concentric left ventricular hypertrophy. 4. Entire inferior wall is hypokinetic. 5. Mildly enlarged left atrium. 6. Right ventricular cavity size is mildly enlarged, global systolic RV function is borderline reduced. 7. Dilated sinus of Valsalva, diameter of 4.3 cm (upper limt of normal for age, sex, and BSA is 4.2 cm*), Height Index 2.53 cm/m. 8. No significant valve disease detected. Status: Acute (3) Personal history of Methicillin resistant Staphylococcus aureus infection: Problem comment: -history of MRSA bacteremia (severe sepsis) in 2016 (likely due to prostate abscess/UTI) with complication of right atrial cardiac thrombus/possible [place] valve endocarditis/vertebral discitis/osteomyelitis. 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 -follows with [place] urology and ID Status: Acute (4) Type 2 diabetes mellitus: Problem comment: -uncontrolled diabetes. Patient has a PCP and follows up here at our clinic -last A1c >10 Status: Chronic (5) Sleep apnea: Problem comment: non-compliant since winter due to orthopnea and PND. Status: Chronic (6) Hypertension: Problem comment: triple med therapy: amlodipine, lisinospril, metoprolol. Status: Chronic (7) Mixed hyperlipidemia: Problem comment: On a statin Status: Chronic (8) CKD (chronic kidney disease) stage 2, GFR 60-89 ml/min: Problem comment: Baseline Cr is about 1. Status: Chronic (9) Anticoagulation monitoring, INR range 2-3: Problem comment: For h/o R mural thrombus and & PFO. Goal 2-3. Status: Chronic (10) Obesity, morbid: Problem comment: -noted Status: Acute (11) Acute heart failure with mildly reduced ejection fraction (HFmrEF): Problem comment: -echo performed last November, ( 4 months ago ) showed reduced left ventricular systolic function with an ejection fraction of 40-45%. -diuresis with IV Lasix. No previous home diuretic. weight 1 year ago was 120kg, admission weight 139kg. 1 month ago: 133.47kg. -patient is currently on guideline-directed medical treatment for heart failure, he is currently on ACEI, a beta-ari. He might benefit from adding SGLT 2 inhibitors or spironolactone. -patient was not on a diuretic at home and he needs to be discharged on an oral diuretic -patient states that he never had heart catheterization but he had a stress test long time ago (around 2017) and it was negative at that time. He will need to following up with Cardiology as an outpatient. -repeating echo 04/02 -starting spironolactone and empaglifozin Status: Acute Subjective Date Seen: 04/02/25 Interval history: Daily Progress Note - Hospital Medicine Day #: 2 CC: Acute decompensated HFmrEF vs HFrEF 24 HOUR UPDATE: feeling a little better. less dyspneic. long bedside conversation regarding his MRSA, social, CHF, MILES hx. has never seen a features reporter outpatient. follows with PCP and ID (for MRSA) has not been wearing his CPAP secondary to nocturnal dyspnea; orthopnea. feels his abdomen and legs have been distended for months. Echo reviewed from November 2024 when done while he was septic. poorly controlled diabetic on insulin and metformin (A1C in February was >10) Notable Labs, Micro, Rads, Interventions: note by [facility] in Sep 2024 Encounter Date Assessment Date Assessment LastModified by Organization Details LastModified Time 10/03/2024 10/03/2024 69M presents for pro state abscess follow up. Doing well s/p TURP but has some incontinence, abscess cavity extending posterior to sphincter so this was expected. 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 very talkative. Vitals: see above Lungs: no wheezes. coarse. diminshed at bases. Cardiac: S1S2. regular. no harsh murmurs. Disposition/Potential discharge - consider TCU vs home with home health. Lives alone. Today I spent 50minutes seeing the patient, reviewing Expanse and EPIC notes/diagnostics, discussing the care plan with our care time that includes social work, PT/OT, pharmacy, RT, retirement and documenting my impressions and plan in the medical record. Exam Const: Vital Signs, click to edit/add: Vital Signs - 24 hr 04/01/25 12:19 04/01/25 12:21 04/01/25 12:23 Temperature 95.2 F L Pulse Rate Pulse Rate [Pulse Oximeter] 65 Pulse Rate [Right Radial] Respiratory Rate 28 H Blood Pressure Blood Pressure [Ri ght Arm] Blood Pressure [Ri ght Upper Arm] 171/69 H Pulse Oximetry 80 L 80 L 91 Oxygen Delivery Me thod Room Air Room Air Nasal Cannula Oxygen Flow Rate 4 04/01/25 12:32 04/01/25 12:45 04/01/25 13:00 Temperature Pulse Rate 64 61 59 L Pulse Rate [Pulse Oximeter] Pulse Rate [Right Radial] Respiratory Rate 28 H Blood Pressure Blood Pressure [Ri ght Arm] Blood Pressure [Ri ght Upper Arm] Pulse Oximetry 92 92 90 Oxygen Delivery Me thod Nasal Cannula Oxygen Flow Rate 4 04/01/25 13:11 04/01/25 13:15 04/01/25 13:28 Temperature Pulse Rate 61 Pulse Rate [Pulse Oximeter] Pulse Rate [Right Radial] Respiratory Rate 31 H 19 Blood Pressure 138/68 Blood Pressure [Ri ght Arm] Blood Pressure [Ri ght Upper Arm] Pulse Oximetry 90 92 Oxygen Delivery Me thod Nasal Cannula Oxygen Flow Rate 4 04/01/25 13:30 04/01/25 13:45 04/01/25 14:00 Temperature Pulse Rate 60 62 58 L Pulse Rate [Pulse Oximeter] Pulse Rate [Right Radial] Respiratory Rate 26 H 35 H 17 Blood Pressure Blood Pressure [Ri ght Arm] Blood Pressure [Ri ght Upper Arm] Pulse Oximetry 92 91 88 Oxygen Delivery Me thod Oxygen Flow Rate 04/01/25 14:04 04/01/25 14:30 04/01/25 14:44 Temperature Pulse Rate 58 L 58 L Pulse Rate [Pulse Oximeter] Pulse Rate [Right Radial] Respiratory Rate 20 32 H 10 L Blood Pressure 130/60 Blood Pressure [Ri ght Arm] Blood Pressure [Ri ght Upper Arm] Pulse Oximetry 92 90 Oxygen Delivery Me thod Oxygen Flow Rate 04/01/25 14:45 04/01/25 15:00 04/01/25 15:33 Temperature Pulse Rate 58 L 57 L Pulse Rate [Pulse Oximeter] Pulse Rate [Right Radial] Respiratory Rate 0 L 25 H Blood Pressure Blood Pressure [Ri ght Arm] Blood Pressure [Ri ght Upper Arm] Pulse Oximetry 91 96 Oxygen Delivery Me thod Oxygen Flow Rate 04/01/25 17:06 04/01/25 17:06 04/01/25 17:06 Temperature 96.8 F L Pulse Rate Pulse Rate [Pulse Oximeter] Pulse Rate [Right Radial] 60 Respiratory Rate 26 H 25 H Blood Pressure Blood Pressure [Ri ght Arm] 133/58 L Blood Pressure [Ri ght Upper Arm] Pulse Oximetry 90 90 90 Oxygen Delivery Me thod Nasal Cannula Nasal Cannula Oxygen Flow Rate 3 3 04/01/25 17:10 04/01/25 17:10 04/01/25 17:29 Temperature 96.8 F L Pulse Rate Pulse Rate [Pulse Oximeter] Pulse Rate [Right Radial] 60 Respiratory Rate 25 H 26 H Blood Pressure Blood Pressure [Ri ght Arm] 133/58 L Blood Pressure [Ri ght Upper Arm] Pulse Oximetry 90 94 94 Oxygen Delivery Me thod Nasal Cannula Nasal Cannula Oxygen Flow Rate 3 2.5 04/01/25 19:00 04/01/25 21:29 04/01/25 23:28 Temperature 97.2 F L Pulse Rate 53 L Pulse Rate [Pulse Oximeter] Pulse Rate [Right Radial] 61 Respiratory Rate 25 H Blood Pressure Blood Pressure [Ri ght Arm] 152/73 H Blood Pressure [Ri ght Upper Arm] Pulse Oximetry 93 90 Oxygen Delivery Me thod Nasal Cannula Oxygen Flow Rate 2.5 04/01/25 23:30 04/01/25 23:30 04/01/25 23:30 Temperature 97.0 F L Pulse Rate Pulse Rate [Pulse Oximeter] 55 L 53 L Pulse Rate [Right Radial] Respiratory Rate 26 H 26 H 26 H Blood Pressure Blood Pressure [Ri ght Arm] 138/68 Blood Pressure [Ri ght Upper Arm] Pulse Oximetry 91 91 Oxygen Delivery Me thod Nasal Cannula Nasal Cannula Oxygen Flow Rate 3 3 04/02/25 01:00 04/02/25 02:51 04/02/25 05:24 Temperature 98.1 F Pulse Rate Pulse Rate [Pulse Oximeter] 56 L Pulse Rate [Right Radial] Respiratory Rate 24 Blood Pressure Blood Pressure [Ri ght Arm] 114/46 L Blood Pressure [Ri ght Upper Arm] Pulse Oximetry 90 93 93 Oxygen Delivery Me thod Nasal Cannula Oxygen Flow Rate 3 04/02/25 08:09 Temperature 97.2 F L Pulse Rate Pulse Rate [Pulse Oximeter] 63 Pulse Rate [Right Radial] Respiratory Rate 18 Blood Pressure Blood Pressure [Ri ght Arm] 158/68 H Blood Pressure [Ri ght Upper Arm] Pulse Oximetry 91 Oxygen Delivery Me thod Nasal Cannula Oxygen Flow Rate 3 Labs Labs: Laboratory Results - last 24 hr 04/01/25 04/01/25 04/01/25 12:43 12:48 12:55 WBC RBC Hgb Hct MCV MCH MCHC RDW Coeff of [place]unior Plt Count Neut % (Auto) Lymph % (Auto) [place] % (Auto) Eos % (Auto) Baso % (Auto) Neut # (Auto) Lymph # (Auto) [place] # (Auto) Eos # (Auto) Baso # (Auto) Abs Immat Gran (auto) Imm/Tot Granulo (auto) INR D-Dimer Quant (PE/DVT) VBG pH VBG pCO2 VBG pO2 VBG HCO3 Sodium 139 Potassium 4.1 Chloride 105 Carbon Dioxide 28 Anion Gap 6 L BUN 12 Creatinine 0.9 Estimated Creat Clear 67.02 Estimated GFR 94 Glucose 95 Lactate Calcium 9.4 Magnesium 1.9 Total Bilirubin 0.9 AST 45 H ALT 40 Alkaline Phosphatase 58 Lactate Dehydrogenase NT-Pro-B Natriuret Pep 870 H Total Protein 7.3 Albumin 4.1 Urine Color Urine Appearance Urine pH Ur Specific [place] Urine Protein Urine Glucose (UA) Urine Ketones Urine Blood Urine Nitrite Urine Bilirubin Urine Urobilinogen Ur Leukocyte Esterase Urine RBC Urine WBC Ur Squamous Epith Cells Urine Bacteria SARS-CoV-2 (PCR) Negative SARS-CoV-2 Influenza Type A (PCR) Negative PCR FLU A Influenza Type B (PCR) Negative PCR FLU B RSV (PCR) Negative PCR RSV POC Troponin I 0.02 04/01/25 04/01/25 04/01/25 13:15 16:55 19:30 WBC 9.37 RBC 4.97 Hgb 14.5 Hct 44.9 MCV 90 MCH 29 MCHC 32 RDW Coeff of [place]unior 14.6 Plt Count 199 Neut % (Auto) 77.9 H Lymph % (Auto) 7.6 L [place] % (Auto) 11.0 Eos % (Auto) 2.5 Baso % (Auto) 0.5 Neut # (Auto) 7.30 H Lymph # (Auto) 0.70 L [place] # (Auto) 1.00 H Eos # (Auto) 0.23 Baso # (Auto) 0.05 Abs Immat Gran (auto) 0.05 Imm/Tot Granulo (auto) 0.5 INR 2.25 H D-Dimer Quant (PE/DVT) 0.03 VBG pH VBG pCO2 VBG pO2 VBG HCO3 Sodium Potassium Chloride Carbon Dioxide Anion Gap BUN Creatinine Estimated Creat Clear Estimated GFR Glucose Lactate 1.9 Calcium Magnesium Total Bilirubin AST ALT Alkaline Phosphatase Lactate Dehydrogenase 277 H NT-Pro-B Natriuret Pep Total Protein Albumin Urine Color Yellow Urine Appearance Clear Urine pH 5.0 Ur Specific [place] 1.015 Urine Protein 1+ A Urine Glucose (UA) Negative Urine Ketones Negative Urine Blood 1+ A Urine Nitrite Negative Urine Bilirubin Negative Urine Urobilinogen 0.2 Ur Leukocyte Esterase Negative Urine RBC 0-2 Urine WBC 0-2 Ur Squamous Epith Cells None Urine Bacteria None SARS-CoV-2 (PCR) Influenza Type A (PCR) Influenza Type B (PCR) RSV (PCR) POC Troponin I 04/02/25 06:22 WBC 7.32 RBC 4.79 Hgb 14.0 Hct 43.4 MCV 91 MCH 29 MCHC 32 RDW Coeff of Yunior Plt Count 190 Neut % (Auto) Lymph % (Auto) [place] % (Auto) Eos % (Auto) Baso % (Auto) Neut # (Auto) Lymph # (Auto) [place] # (Auto) Eos # (Auto) Baso # (Auto) Abs Immat Gran (auto) Imm/Tot Granulo (auto) INR 2.35 H D-Dimer Quant (PE/DVT) VBG pH 7.396 VBG pCO2 50 VBG pO2 37.4 VBG HCO3 31 H Sodium 139 Potassium 3.7 Chloride 103 Carbon Dioxide 30 Anion Gap 6 L BUN 15 Creatinine 1.0 Estimated Creat Clear 67.02 Estimated GFR 82 Glucose 100 Lactate Calcium 9.2 Magnesium 2.0 Total Bilirubin 0.8 AST 42 H ALT 40 Alkaline Phosphatase 58 Lactate Dehydrogenase NT-Pro-B Natriuret Pep Total Protein 7.0 Albumin 3.9 Urine Color Urine Appearance Urine pH Ur Specific [place] Urine Protein Urine Glucose (UA) Urine Ketones Urine Blood Urine Nitrite Urine Bilirubin Urine Urobilinogen Ur Leukocyte Esterase Urine RBC Urine WBC Ur Squamous Epith Cells Urine Bacteria SARS-CoV-2 (PCR) Influenza Type A (PCR) Influenza Type B (PCR) RSV (PCR) POC Troponin I
--- NOTE | 2025-04-02 10:37 | REH.PT ---
Orders for PT eval and treat received and chart reviewed. Pt is up amb ind to/from bathroom in hospital room upon approach. Able to self manage oxygen with all mobility. Pt doesn't believe he is in need of skilled PT services at this time. D/C PT. Will reassess if needed.
--- NOTE | 2025-04-02 11:18 | PC.PHA ---
Warfarin consult note: Reason for warfarin: right mural thrombus and PFO INR goal requested by the provider: 2-3 Most recent INR: 04/02/25: 2.35 Usual home dose (if any): 7.5 mg daily Today's dose ordered: 7.5 mg Vitamin K given: N/A Comments: Patient reports that he takes warfarin in the morning.
--- NOTE | 2025-04-02 11:24 | RESP.RT ---
Patient still appears to be up on fluid and is requiring 3L NC to keep SATs at 90%. We could use CPAP if his O2 requirements increase.
[2025-04-02] MEDS: PERFLUTREN LIPID MICROSPHERES 2 ML VIAL IVP (15:20)
[2025-04-02] MEDS: SPIRONOLACTONE 25 MG TABLET PO (15:33)
[2025-04-02] MEDS: EMPAGLIFLOZIN 10 MG TABLET PO (15:33)
[2025-04-02] MEDS: INSULIN ASPART 100 UNIT/ML SUBCUT (17:44)
--- NOTE | 2025-04-02 18:54 | PC.NURSE ---
Pt is doing well today. VSS. Denies pain. Pt states the swelling has decreased in his feet, making ambulation less painful and he feels more steady on his feet. Pt continues to be SOB with exertion. He is requiring 2L O2 for sat's >90%. Pt is independent in room.
[2025-04-02] MEDS: ROSUVASTATIN CALCIUM 10 MG TABLET 20 MG PO (21:17)
[2025-04-03] VITALS (18 sets, daily range): BP systolic 120–145; BP diastolic 58–97; PULSE 53–97; RESP 17–24; TEMP 36.1–36.8; O2SAT 91–95
[2025-04-03 06:36] LABS: HCO3 VBG 33 mmol/L (21-28); PCO2 VBG 53 mmHG (40-50); PO2 VBG 45.8 mmHG (25-47); pH VBG 7.398 (7.32-7.43)
[2025-04-03 06:55] LABS: Hematocrit 46.2 % (37.0-53.0); Hemoglobin* 14.9 gm/dL (13.5-17.5); Immature Granulocytes Abs Auto 0.02 K/uL (0.00-0.30); Immature Granulocytes Pct Auto 0.3 %; Mean Corpuscular HGB Conc 32 gm/dL (32-36); Mean Corpuscular Hemoglobin 29 pg (26-34); Mean Corpuscular Volume 90 fL (80-100); RDW Coefficient of Variation % 14.6 % (11.5-15.5); Red Blood Count 5.12 m/uL (4.30-5.90); White Blood Count* 7.25 K/uL (4.50-11.00)
[2025-04-03 07:00] LABS: Lymphocytes Absolute Auto 0.90 K/uL (0.90-2.90); Slide Review Reflex No
[2025-04-03 07:01] LABS: Albumin* 4.2 g/dL (3.3-5.0); Chloride* 102 mmol/L (96-114); Potassium* 4.2 mmol/L (3.6-5.1); Sodium* 139 mmol/L (135-149)
[2025-04-03 07:04] LABS: Alanine Aminotransferase* 53 U/L (4-50); Alkaline Phosphatase* 48 U/L (40-150); Anion Gap 5 mEq/L (7-15); Aspartate Amino Transferase* 74 U/L (12-35); Bilirubin Total* 1.0 mg/dL (0.1-1.5); Blood Urea Nitrogen* 20 mg/dL (7-30); Carbon Dioxide* 32 mmol/L (20-32); Creatinine* 1.0 mg/dL (0.5-1.5); Est. Creatinine Clearance* 67.02; Estimated Glomerular Filt Rate 82 ml/min; Total Protein* 7.5 g/dL (6.0-8.3)
[2025-04-03 07:05] LABS: Calcium* 9.4 mg/dL (8.4-10.6); Glucose* 96 mg/dL (60-115)
[2025-04-03 07:16] LABS: INR 1.99 (0.91-1.10); Prothrombin Time 23.7 Seconds
[2025-04-03 07:28] LABS: Iron* 68 ug/dL (49-181)
[2025-04-03 07:37] LABS: Percent Iron Saturation 18 % (20-50); Total Iron Binding Capacity 376 ug/dL (261-462)
--- NOTE | 2025-04-03 07:41 | PC.NURSE ---
Shift note ([id number]): Patient pleasant, alert and oriented. Ambulates independently in room. Was up in chair part of night as was unable to sleep. Asleep when arrived to take early am VS. Partial VS taken at that time to allow pt to sleep. Reports he stubbed his fifth toe on right foot. Fifth toe appears to have a purple blood blister/bruising on tip. There was a scant amount of active bleeding and some dried blood noted.?Bandage was applied. Denies discomfort. O2 sats 88-97% on 2 LPM.?
--- NOTE | 2025-04-03 08:08 | P.IMPN_ITS ---
Assessment and Plan Assessment and plan (1) Acute hypoxic respiratory failure: Problem comment: -likely secondary to exacerbation of congestive heart failure -weaning oxygen as possible. Status: Acute (2) Acute heart failure with mildly reduced ejection fraction (HFmrEF): Problem comment: -echo completed 04/02 -diuresis with IV Lasix. No previous home diuretic. weight 1 year ago was 120kg, admission weight 139kg. 1 month ago: 133.47kg. -no hx of LH cath. -starting spironolactone and empaglifozin, continuing bblocker, ACEI. Status: Acute (3) Cardiomyopathy: Problem comment: -has not had ischemic workup -echo 04/02/25 1. Normal LV size, mildly reduced function with an estimated EF of 40 - 45%. 2. Basal inferior segment is abnormal. 3. Right ventricular cavity size is normal, global systolic RV function is normal. 4. Moderately enlarged left atrium. 5. No significant valve disease detected. 6. The sinus of Valsalva is normal for age/sex/bsa, diameter of 4.2 cm (upper limit of normal for age, sex, and BSA is 4.2 cm*), Height Index 2.47 cm/m. Status: Acute (4) Personal history of Methicillin resistant Staphylococcus aureus infection: Problem comment: -history of MRSA bacteremia (severe sepsis) in 2016 (likely due to prostate abscess/UTI) with complication of right atrial cardiac thrombus/possible [place] valve endocarditis/vertebral discitis/osteomyelitis. 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 -follows with [facility] and ID Status: Acute (5) Type 2 diabetes mellitus: Problem comment: -uncontrolled diabetes. Patient has a PCP and follows up here at our clinic -last A1c >10 Status: Chronic (6) Sleep apnea: Problem comment: non-compliant since winter of due to orthopnea and PND. Status: Chronic (7) Hypertension: Problem comment: triple med therapy: amlodipine, lisinospril, metoprolol. Status: Chronic (8) Mixed hyperlipidemia: Problem comment: On a statin Status: Chronic (9) CKD (chronic kidney disease) stage 2, GFR 60-89 ml/min: Problem comment: Baseline Cr is about 1. Status: Chronic (10) Anticoagulation monitoring, INR range 2-3: Problem comment: For h/o R mural thrombus and & PFO. Goal 2-3. Status: Chronic (11) Obesity, morbid: Problem comment: -noted Status: Acute Subjective Date Seen: 04/03/25 Interval history: Daily Progress Note - Hospital #: 3 CC: Acute decompensated HFmrEF 24 HOUR UPDATE: More subdued this morning. appears sleepy but can tell he's 10lbs down from the look of his legs; abdomen still has distension (body wall edema) Afebrile Vitals reviewed, bradycardic but stable. 2 L per nasal cannula oxygen setting the low 90s Standing weight at admission was 139.82, down to 135.62, delta of 4.2 kg/9.24 lb CBC unremarkable. INR 1.99 Chemistries reviewed. Likely evidence of fatty liver and subclinical hyperthyroidism. Potassium and creatinine are stable. Blood cultures negative to date. RN: Patient pleasant, alert and oriented. Ambulates independently in room. Was up in chair part of night as was unable to sleep. Asleep when arrived to take early am VS. Partial VS taken at that time to allow pt to sleep. Reports he stubbed his fifth toe on right foot. Fifth toe appears to have a purple blood blister/bruising on tip. There was a scant amount of active bleeding and some dried blood noted.?Bandage was applied. Denies discomfort. O2 sats 88-97% on 2 LPM.? Echo 04/02/25 Final Impressions: 1. Normal LV size, mildly reduced function with an estimated EF of 40 - 45%. 2. Basal inferior segment is abnormal. 3. Right ventricular cavity size is normal, global systolic RV function is normal. 4. Moderately enlarged left atrium. 5. No significant valve disease detected. 6. The sinus of Valsalva is normal for age/sex/bsa, diameter of 4.2 cm (upper limit of normal for age, sex, and BSA is 4.2 cm*), Height Index 2.47 cm/m. Notable Labs, Micro, Rads, Interventions: Objective: in the chair; resting comfortably. Vitals: see above Lungs: no wheezes. coarse. diminshed at bases. Cardiac: S1S2. regular. no harsh murmurs. 3+ edema noted thoroughout lower extremities. Disposition/Potential discharge - consider TCU vs home with home health. Lives alone. Today I spent 50minutes seeing the patient, reviewing Expanse and EPIC notes/diagnostics, discussing the care plan with our care time that includes social work, PT/OT, pharmacy, RT, correction and documenting my impressions and plan in the medical record. Exam Const: Vital Signs, click to edit/add: Vital Signs - 24 hr 04/02/25 08:09 04/02/25 09:00 04/02/25 11:00 Temperature 97.2 F L 97.2 F L Pulse Rate Pulse Rate [Pulse Oximeter] 63 60 Pulse Rate [Right Radial] Respiratory Rate 18 18 Blood Pressure [Ri ght Arm] 158/68 H 139/66 Pulse Oximetry 91 91 93 Oxygen Delivery Me thod Nasal Cannula Nasal Cannula Oxygen Flow Rate 3 3 04/02/25 13:00 04/02/25 15:00 04/02/25 15:00 Temperature Pulse Rate 62 Pulse Rate [Pulse Oximeter] 64 Pulse Rate [Right Radial] 61 Respiratory Rate 18 Blood Pressure [Ri ght Arm] Pulse Oximetry 92 Oxygen Delivery Me thod Oxygen Flow Rate 04/02/25 15:00 04/02/25 15:31 04/02/25 17:00 Temperature 98.7 F Pulse Rate Pulse Rate [Pulse Oximeter] 64 Pulse Rate [Right Radial] Respiratory Rate 18 18 Blood Pressure [Ri ght Arm] 140/65 H Pulse Oximetry 93 93 92 Oxygen Delivery Me thod Nasal Cannula Nasal Cannula Oxygen Flow Rate 2 2 04/02/25 20:56 04/02/25 21:10 04/02/25 21:22 Temperature 97.3 F L Pulse Rate Pulse Rate [Pulse Oximeter] 61 Pulse Rate [Right Radial] Respiratory Rate 24 24 Blood Pressure [Ri ght Arm] 137/57 L Pulse Oximetry 94 94 Oxygen Delivery Me thod Nasal Cannula Oxygen Flow Rate 2 04/03/25 00:40 04/03/25 00:40 04/03/25 01:00 Temperature 97.0 F L Pulse Rate Pulse Rate [Pulse Oximeter] 55 L Pulse Rate [Right Radial] Respiratory Rate 20 20 Blood Pressure [Ri ght Arm] 138/69 Pulse Oximetry 93 93 93 Oxygen Delivery Me thod Nasal Cannula Nasal Cannula Oxygen Flow Rate 2 2 04/03/25 03:44 04/03/25 04:25 04/03/25 04:29 Temperature Pulse Rate 59 L Pulse Rate [Pulse Oximeter] 57 L Pulse Rate [Right Radial] 97 Respiratory Rate 17 Blood Pressure [Ri ght Arm] Pulse Oximetry 94 94 Oxygen Delivery Me thod Nasal Cannula Oxygen Flow Rate 2 Labs Labs: Laboratory Results - last 24 hr 04/03/25 06:10 WBC 7.25 RBC 5.12 Hgb 14.9 Hct 46.2 MCV 90 MCH 29 MCHC 32 RDW Coeff of Yunior 14.6 Plt Count 188 Neut % (Auto) 69.7 Lymph % (Auto) 13.0 L [place] % (Auto) 12.8 H Eos % (Auto) 3.2 Baso % (Auto) 1.0 Neut # (Auto) 5.06 Lymph # (Auto) 0.90 [place] # (Auto) 0.90 Eos # (Auto) 0.23 Baso # (Auto) 0.07 Abs Immat Gran (auto) 0.02 Imm/Tot Granulo (auto) 0.3 INR 1.99 H VBG pH 7.398 VBG pCO2 53 H VBG pO2 45.8 VBG HCO3 33 H Sodium 139 Potassium 4.2 Chloride 102 Carbon Dioxide 32 Anion Gap 5 L BUN 20 Creatinine 1.0 Estimated Creat Clear 67.02 Estimated GFR 82 Glucose 96 Calcium 9.4 Total Bilirubin 1.0 AST 74 H ALT 53 H Alkaline Phosphatase 48 Total Protein 7.5 Albumin 4.2
[2025-04-03] MEDS: FUROSEMIDE 10 MG/ML inj 40 MG IVP ×2 (09:33→16:09)
[2025-04-03] MEDS: SODIUM CHLORIDE 0.9 % (FLUSH) 10 ML SYRINGE 5 ML IVF (09:34)
[2025-04-03] MEDS: WARFARIN 5 MG TABLET 7.5 MG PO (09:34)
[2025-04-03] MEDS: METOPROLOL TARTRATE 100 MG TABLET PO ×2 (09:34→21:49)
[2025-04-03] MEDS: SPIRONOLACTONE 25 MG TABLET PO (09:35)
[2025-04-03] MEDS: AMLODIPINE 10 MG TABLET PO (09:35)
[2025-04-03] MEDS: EMPAGLIFLOZIN 10 MG TABLET PO (09:35)
[2025-04-03 13:06] LABS: Free T4 Free Thyroxine* 1.04 ng/dL (0.70-1.85)
--- NOTE | 2025-04-03 14:13 | PC.SOCIAL ---
Discharge planning: Met with pt who plans to return home to his apartment at [facility] on [address] [facility]. Pt does not have any supportive services in place and shared that he drives himself to appointments and on errands as needed. Per MD order for home health nursing at discharge. Pt is refusing this as he is not home bound and would only accept it if covered by insurance. Pt states there is a [facility] nurse that visits residents of the [place]. If this public health nurse is able to visit pt without him being home bound, he is interested in this. With pt's permission, called [facility] and left message requesting a call back regarding any possible services pt would be eligible for at the [place]. Pt states he has been wanting to try a medication for his diabetes management which is over $300/month and not covered by his insurance. Social work offered a referral to the [employer] Care Assessment through the [facility] Linkage Line to see if he is eligible for any financial programs to help with medication costs. Referral made online at pt's request, confirmation #[id number]. egg worker to follow up as needed.
--- NOTE | 2025-04-03 18:12 | PC.NURSE ---
End of Shift ([id number]): Patient pleasant and coopertive. Patient vitally stable, posterior lower lobes diminished, BS WNL, IV SL and intact. Patient is on 1 L NC with sats in the low 90s. Patient denies pain, and is independent in room. Patient tolerating regular diet, urinating well, No BM this shift. Patient has been up in chair this shift. Tele=NS with 1 degree HB. Dinner blood sugar was 149.
[2025-04-03] MEDS: ROSUVASTATIN CALCIUM 10 MG TABLET 20 MG PO (21:49)
[2025-04-04] VITALS (10 sets, daily range): BP systolic 136–157; BP diastolic 54–74; PULSE 54–65; RESP 20–24; TEMP 36.1–36.8; O2SAT 90–93
[2025-04-04 06:06] LABS: Hemoglobin* 14.1 gm/dL (13.5-17.5)
--- NOTE | 2025-04-04 06:11 | PC.NURSE ---
The patient is in stable condition. He reports that his SOB has improved and feels a lot better. On RA when awake, hx of MILES so required 1L NC overnight. Up independently, voiding well. The patient reported that he has had some abdominal pressure/bloating for awhile now... and stated that he, wishes a Dr could figure it out. VSS, no reports of pain, slept intermittently throughout the night. BLE and ankle 2+ pitting edema with a small amount of redness. Call light within reach. Shanel GAMBLE BSN
[2025-04-04 06:23] LABS: Albumin* 4.0 g/dL (3.3-5.0); Chloride* 102 mmol/L (96-114); Potassium* 3.8 mmol/L (3.6-5.1); Sodium* 139 mmol/L (135-149)
[2025-04-04 06:26] LABS: Alanine Aminotransferase* 60 U/L (4-50); Alkaline Phosphatase* 59 U/L (40-150); Anion Gap 5 mEq/L (7-15); Aspartate Amino Transferase* 64 U/L (12-35); Bilirubin Total* 0.7 mg/dL (0.1-1.5); Blood Urea Nitrogen* 19 mg/dL (7-30); Carbon Dioxide* 32 mmol/L (20-32); Creatinine* 1.0 mg/dL (0.5-1.5); Est. Creatinine Clearance* 67.02; Estimated Glomerular Filt Rate 82 ml/min; Total Protein* 7.1 g/dL (6.0-8.3)
[2025-04-04 06:27] LABS: Calcium* 9.1 mg/dL (8.4-10.6); Glucose* 127 mg/dL (60-115)
[2025-04-04 06:34] LABS: INR 2.01 (0.91-1.10); Prothrombin Time 23.9 Seconds
[2025-04-04] MEDS: METOPROLOL TARTRATE 100 MG TABLET PO ×2 (09:03→20:55)
[2025-04-04] MEDS: SPIRONOLACTONE 25 MG TABLET PO (09:04)
[2025-04-04] MEDS: EMPAGLIFLOZIN 10 MG TABLET PO (09:04)
[2025-04-04] MEDS: AMLODIPINE 10 MG TABLET PO (09:04)
[2025-04-04] MEDS: WARFARIN 5 MG TABLET 7.5 MG PO (09:05)
[2025-04-04] MEDS: SODIUM CHLORIDE 0.9 % (FLUSH) 10 ML SYRINGE 5 ML IVF ×2 (09:14→20:55)
[2025-04-04] MEDS: TORSEMIDE 20 MG TABLET 40 MG PO (09:45)
--- NOTE | 2025-04-04 14:59 | PM.IMPN1 ---
Assessment and Plan Assessment and plan (1) Acute hypoxic respiratory failure: Problem comment: -likely secondary to exacerbation of congestive heart failure -improving daily with diuresis Status: Acute (2) Acute heart failure with mildly reduced ejection fraction (HFmrEF): Problem comment: -echo completed 04/02 -diuresis with IV Lasix. No previous home diuretic. weight 1 year ago was 120kg, admission weight 139kg. 1 month ago: 133.47kg. -no hx of LH cath. -starting spironolactone and empagliflozin, continuing bblocker, ACEI. -starting torsemide Status: Acute (3) Cardiomyopathy: Problem comment: -has not had ischemic workup -echo 04/02/25 1. Normal LV size, mildly reduced function with an estimated EF of 40 - 45%. 2. Basal inferior segment is abnormal. 3. Right ventricular cavity size is normal, global systolic RV function is normal. 4. Moderately enlarged left atrium. 5. No significant valve disease detected. 6. The sinus of Valsalva is normal for age/sex/bsa, diameter of 4.2 cm (upper limit of normal for age, sex, and BSA is 4.2 cm*), Height Index 2.47 cm/m. Status: Acute (4) Personal history of Methicillin resistant Staphylococcus aureus infection: Problem comment: -history of MRSA bacteremia (severe sepsis) in 2016 (likely due to prostate abscess/UTI) with complication of right atrial cardiac thrombus/possible [place] valve endocarditis/vertebral discitis/osteomyelitis. 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 -follows with [place] [facility] and ID Status: Acute (5) Type 2 diabetes mellitus: Problem comment: -uncontrolled diabetes. Patient has a PCP and follows up here at our clinic -last A1c >10 Status: Chronic (6) Sleep apnea: Problem comment: non-compliant since winter of due to orthopnea and PND. Status: Chronic (7) Hypertension: Problem comment: triple med therapy: amlodipine, lisinospril, metoprolol. Status: Chronic (8) Mixed hyperlipidemia: Problem comment: On a statin Status: Chronic (9) CKD (chronic kidney disease) stage 2, GFR 60-89 ml/min: Problem comment: Baseline Cr is about 1. Status: Chronic (10) Anticoagulation monitoring, INR range 2-3: Problem comment: For h/o R mural thrombus and & PFO. Goal 2-3. Status: Chronic (11) Obesity, morbid: Problem comment: -noted Status: Acute Subjective Date Seen: 04/04/25 Interval history: Daily Progress Note - Hospital Medicine #: 4 CC: Acute decompensated HFmrEF 24 HOUR UPDATE: more alert and quite talkative this morning. He's feeling improved, breathing easier. On room air; untreated MILES needed 1L overnight. Afebrile Vitals reviewed, bradycardic but stable. Room air Standing weight at admission was 139.82, down to 134.037, delta of 12.7# CBC unremarkable. INR at goal Chemistries reviewed. Likely evidence of fatty liver and subclinical hyperthyroidism. Potassium and creatinine are stable. Blood cultures negative to date. Echo 04/02/25 Final Impressions: 1. Normal LV size, mildly reduced function with an estimated EF of 40 - 45%. 2. Basal inferior segment is abnormal. 3. Right ventricular cavity size is normal, global systolic RV function is normal. 4. Moderately enlarged left atrium. 5. No significant valve disease detected. 6. The sinus of Valsalva is normal for age/sex/bsa, diameter of 4.2 cm (upper limit of normal for age, sex, and BSA is 4.2 cm*), Height Index 2.47 cm/m. Objective: in the chair; resting comfortably. Vitals: see above Lungs: no wheezes. coarse. diminshed at bases. Cardiac: S1S2. regular. no harsh murmurs. 3+ edema noted thoroughout lower extremities. Disposition/Potential discharge - likely discharge to home (apartment in ) and clinic follow-up Today I spent 50minutes seeing the patient, reviewing Expanse and EPIC notes/diagnostics, discussing the care plan with our care time that includes social work, PT/OT, pharmacy, RT, [place] [facility] and documenting my impressions and plan in the medical record. Exam Const: Vital Signs, click to edit/add: Vital Signs - 24 hr 04/03/25 15:07 04/03/25 16:05 04/03/25 16:05 Temperature 98.3 F Pulse Rate 60 Pulse Rate [Pulse Oximeter] 57 L 57 L Respiratory Rate 24 24 Blood Pressure [Le ft Arm] 140/70 H Blood Pressure [Ri ght Arm] Pulse Oximetry 91 Oxygen Delivery Me thod Nasal Cannula Oxygen Flow Rate 1 07/25/25 16:05 04/03/25 18:11 04/03/25 19:46 Temperature 97.3 F L Pulse Rate Pulse Rate [Pulse Oximeter] 58 L Respiratory Rate 24 22 Blood Pressure [Le ft Arm] 145/69 H Blood Pressure [Ri ght Arm] Pulse Oximetry 91 92 93 Oxygen Delivery Me thod Nasal Cannula Nasal Cannula Oxygen Flow Rate 1 1 04/03/25 22:00 04/03/25 23:00 04/03/25 23:00 Temperature Pulse Rate 65 Pulse Rate [Pulse Oximeter] Respiratory Rate 22 Blood Pressure [Le ft Arm] Blood Pressure [Ri ght Arm] Pulse Oximetry 93 93 Oxygen Delivery Me thod Nasal Cannula Oxygen Flow Rate 1 04/03/25 23:07 04/03/25 23:07 04/04/25 03:00 Temperature 97.0 F L Pulse Rate Pulse Rate [Pulse Oximeter] 53 L 55 L Respiratory Rate 20 20 Blood Pressure [Le ft Arm] Blood Pressure [Ri ght Arm] 142/97 H 136/63 Pulse Oximetry 95 95 93 Oxygen Delivery Me thod Nasal Cannula Nasal Cannula Oxygen Flow Rate 1 04/04/25 07:21 04/04/25 09:14 04/04/25 09:14 Temperature 97.3 F L Pulse Rate 54 L Pulse Rate [Pulse Oximeter] 57 L 57 L Respiratory Rate 22 22 Blood Pressure [Le ft Arm] Blood Pressure [Ri ght Arm] 150/72 H Pulse Oximetry 92 Oxygen Delivery Me thod Room Air Oxygen Flow Rate 04/04/25 09:14 04/04/25 09:18 04/04/25 12:04 Temperature 97.6 F Pulse Rate Pulse Rate [Pulse Oximeter] 56 L Respiratory Rate 22 20 Blood Pressure [Le ft Arm] Blood Pressure [Ri ght Arm] 144/74 H Pulse Oximetry 92 92 93 Oxygen Delivery Me thod Room Air Room Air Oxygen Flow Rate Labs Labs: Laboratory Results - last 24 hr 04/04/25 05:27 Hgb 14.1 INR 2.01 H Sodium 139 Potassium 3.8 Chloride 102 Carbon Dioxide 32 Anion Gap 5 L BUN 19 Creatinine 1.0 Estimated Creat Clear 67.02 Estimated GFR 82 Glucose 127 H Calcium 9.1 Total Bilirubin 0.7 AST 64 H ALT 60 H Alkaline Phosphatase 59 Total Protein 7.1 Albumin 4.0
--- NOTE | 2025-04-04 19:31 | PC.NURSE ---
End of Shift: Patient pleasant and cooperative. Patient vitally stable, lungs clear/diminished, BS WNL, IV SL and intact. Patient denies pain. Lower extremity edema +1 pitting. Patient tolerating regular diet, urinating well, no BM. Blood sugars 118, 121, 116. Tele= first degree HN and BBB. Patient is up in chair all day.
[2025-04-04] MEDS: ROSUVASTATIN CALCIUM 10 MG TABLET 20 MG PO (20:55)
[2025-04-05 03:00] VITALS: BP 128/59; PULSE 60; RESP 22; TEMP 36.4; O2SAT 90
[2025-04-05 05:48] LABS: HCO3 VBG 30 mmol/L (21-28); PCO2 VBG 43 mmHG (40-50); PO2 VBG 66.2 mmHG (25-47); pH VBG 7.443 (7.32-7.43)
[2025-04-05 05:56] LABS: Hemoglobin* 14.2 gm/dL (13.5-17.5)
[2025-04-05 06:24] LABS: INR 2.28 (0.91-1.10); Prothrombin Time 26.3 Seconds
[2025-04-05 06:56] LABS: Chloride* 101 mmol/L (96-114); Sodium* 138 mmol/L (135-149)
[2025-04-05 06:57] LABS: Potassium* 4.0 mmol/L (3.6-5.1)
[2025-04-05 06:59] LABS: Blood Urea Nitrogen* 22 mg/dL (7-30); Creatinine* 1.0 mg/dL (0.5-1.5); Est. Creatinine Clearance* 67.02; Estimated Glomerular Filt Rate 82 ml/min
[2025-04-05 07:00] LABS: Anion Gap 9 mEq/L (7-15); Calcium* 9.0 mg/dL (8.4-10.6); Carbon Dioxide* 28 mmol/L (20-32); Glucose* 153 mg/dL (60-115)
[2025-04-05 08:26] VITALS: BP 146/66; PULSE 57; RESP 24; TEMP 36.2; O2SAT 91
[2025-04-05] MEDS: TORSEMIDE 20 MG TABLET 40 MG PO (08:29)
[2025-04-05] MEDS: EMPAGLIFLOZIN 10 MG TABLET PO (08:32)
[2025-04-05] MEDS: SPIRONOLACTONE 25 MG TABLET PO (08:32)
[2025-04-05] MEDS: METOPROLOL TARTRATE 100 MG TABLET PO (08:32)
[2025-04-05] MEDS: AMLODIPINE 10 MG TABLET PO (08:32)
[2025-04-05] MEDS: WARFARIN 5 MG TABLET 7.5 MG PO (08:33)
[2025-04-05] MEDS: SODIUM CHLORIDE 0.9 % (FLUSH) 10 ML SYRINGE 5 ML IVF (08:42)
--- NOTE | 2025-04-05 11:15 | PM.DS1 ---
DS: Providers Provider Date Seen: 04/05/25 Date of admission: 04/01/25 17:05 Primary care physician: Romeo Mendez MD Admitting Clinician: Kassandra Campo MD Consults: 04/01/25 17:05 Consult to Occupational Therapy [CONS] Routine Comment: Reason(s) for OT Consult:: Evaluate and Treat Any Restrictions?:: No Restrictions Consult to Physical Therapy [CONS] Routine Comment: Reason(s) for PT Consult:: Evaluate and Treat Any Restrictions?:: No Restrictions Consult to Respiratory Therapy [CONS] Routine Comment: Reason(s) for RT Consult:: Consult Consult to Transfer Station Operator [CONS] Routine Comment: Reason for Consult:: Discharge Planning Needs Attending Physician on discharge: Estela Buitrago MD [facility] Date of Discharge: 04/05/25 DS: Diagnosis Discharge Diagnosis (1) Acute heart failure with mildly reduced ejection fraction (HFmrEF): Status: Acute Problem details: -echo completed 04/02 -diuresis with IV Lasix. No previous home diuretic. weight 1 year ago was 120kg, admission weight 139kg. 1 month ago: 133.47kg. Discharge weight 132.8 -no hx of LH cath. -starting spironolactone and empagliflozin and continuing bblocker, ACEI. -tolerating torsemide, no hypokalemia. (2) Acute hypoxic respiratory failure: Status: Acute Problem details: -likely secondary to exacerbation of congestive heart failure -improving daily with diuresis -hypoxia resolved not being discharged on oxygen. (3) Personal history of Methicillin resistant Staphylococcus aureus infection: Status: Acute Problem details: -history of MRSA bacteremia (severe sepsis) in 2017 (likely due to prostate abscess/UTI) with complication of right atrial cardiac thrombus/possible [place] valve endocarditis/vertebral discitis/osteomyelitis. 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 -follows with [place] [facility] and ID (4) Cardiomyopathy: Status: Acute Problem details: -has not had ischemic workup. Given the inferior segment hypokinesis and recent hospitalization for decompensated heart failure, cardiology or heart failure clinic referral with [facility] should be considered. -echo 04/02/25 1. Normal LV size, mildly reduced function with an estimated EF of 40 - 45%. 2. Basal inferior segment is abnormal. 3. Right ventricular cavity size is normal, global systolic RV function is normal. 4. Moderately enlarged left atrium. 5. No significant valve disease detected. 6. The sinus of Valsalva is normal for age/sex/bsa, diameter of 4.2 cm (upper limit of normal for age, sex, and BSA is 4.2 cm*), Height Index 2.47 cm/m. (5) Mixed hyperlipidemia: Status: Chronic Problem details: On a statin (6) Type 2 diabetes mellitus: Status: Chronic Problem details: -uncontrolled diabetes. -last A1c >10 -would be a great candidate for a G LP 1 medication like Ozempic. (7) Sleep apnea: Status: Chronic Problem details: non-compliant since winter of due to orthopnea and PND. Referral to sleep medicine is advised (8) Hypertension: Status: Chronic Problem details: triple med therapy: amlodipine, lisinospril, metoprolol. Consider alternative therapies to the amlodipine if after diuresis his pedal edema persists. (9) Anticoagulation monitoring, INR range 2-3: Status: Chronic Problem details: For h/o R mural thrombus and & PFO. Goal 2-3. (10) Obesity, morbid: Status: Acute Problem details: -noted DS: Summary Hospital Course Hospital Course: FINAL DIAGNOSIS/FOLLOW UP ISSUES: 1. 1st lifetime presentation of acutely decompensated heart failure. HFmrEF. Inferior segment hypokinesis, EF 40-45%. Naive to diuretics. Diuresed 7 kg. No active ischemia noted. Sleep Medicine and Cardiology outpatient referrals highly recommended. Chronic care outpatient management/nurse educator for heart failure recommended. It medications to comply with GDMT included Jardiance and spironolactone. His diuresis regimen at discharge is 40 mg of torsemide. We will continue his beta-ari and LEVI-inhibitor as he was previously taking. BRIEF HOSPITAL COURSE: Patient was admitted for 5 days. Synopsis of acute inpatient issues are outlined above. Chronic medical conditions with notable findings outlined above. He diuresed nicely over 70 Zane's. He was weaned from oxygen. He felt so much better and had more energy. He was started on guideline directed medical therapy for this 1st presentation of heart failure. My recommendations are listed above. DISCHARGE MEDICATIONS: See Reconciled list - SIGNIFICANT CHANGES: Three new medications: Jardiance, spironolactone and torsemide. Specific instructions to the patient and follow-up are outlined below. REVIEW OF SYSTEMS No new chest pain or dyspnea Pain controlled No voiding difficulties Tolerating diet challenge PHYSICAL EXAM: CONSTITUTIONAL: Conversive, good historian. A/O. Knows setting and context. GENERAL: Well-developed and above ideal body weight, in no respiratory distress. VITAL SIGNS: see record. HEENT: Sclerae are anicteric. No petechiae. CARDIAC: rhythm is irregular. There is no S3 or rub. No harsh murmurs. Extremities show 2+ edema with symmetrical pulses. PULM: good air entry with no wheeze. NEURO: Speech is fluent. A brief neurologic exam is negative. SKIN: No rashes, petechiae, concerning changes PSYCHIATRIC: Euthymic. DISPOSITION: Home Time spent on discharge 37 minutes. Status at Discharge Overall status at discharge: patient is progressing back to baseline Time Spent with Patient Time attestation: Total time spent providing and/or coordinating discharge services: Time spent: Greater than 30 minutes Exam Const: Vital Signs, click to edit/add: Vital Signs - 24 hr 04/04/25 12:04 04/04/25 16:49 04/04/25 16:49 Temperature 97.6 F 98 F Pulse Rate Pulse Rate [Pulse Oximeter] 56 L 59 L 59 L Respiratory Rate 20 24 24 Blood Pressure [Ri ght Arm] 144/74 H 157/73 H Pulse Oximetry 93 93 Oxygen Delivery Me thod Room Air Room Air Oxygen Flow Rate 04/04/25 16:49 04/04/25 17:06 04/04/25 19:37 Temperature Pulse Rate 59 L Pulse Rate [Pulse Oximeter] Respiratory Rate 24 Blood Pressure [Ri ght Arm] Pulse Oximetry 93 93 Oxygen Delivery Me thod Room Air Oxygen Flow Rate 04/04/25 20:00 04/04/25 23:00 04/04/25 23:00 Temperature 98.3 F 97.3 F L Pulse Rate Pulse Rate [Pulse Oximeter] 65 63 Respiratory Rate 20 20 Blood Pressure [Ri ght Arm] 143/63 H 137/54 L Pulse Oximetry 91 90 90 Oxygen Delivery Me thod Room Air Room Air Room Air Oxygen Flow Rate 04/04/25 23:00 04/05/25 03:00 04/05/25 08:26 Temperature 97.5 F L 97.2 F L Pulse Rate 62 Pulse Rate [Pulse Oximeter] 60 57 L Respiratory Rate 22 24 Blood Pressure [Ri ght Arm] 128/59 L 146/66 H Pulse Oximetry 90 91 Oxygen Delivery Me thod Nasal Cannula Room Air Oxygen Flow Rate 1 04/05/25 08:26 04/05/25 08:26 Temperature Pulse Rate Pulse Rate [Pulse Oximeter] 57 L Respiratory Rate 24 24 Blood Pressure [Ri ght Arm] Pulse Oximetry 91 Oxygen Delivery Me thod Room Air Oxygen Flow Rate DS: Data Data Completed and Pending Completed studies during hospitalization: Procedures Insertion of Infusion Device into Superior Vena Cava, Percutaneous Approach (11/12/24) Labs on day of discharge: Labs from last 24 hours 04/05/25 05:26 Hgb 14.2 INR 2.28 H VBG pH 7.443 H VBG pCO2 43 VBG pO2 66.2 H VBG HCO3 30 H Sodium 138 Potassium 4.0 Chloride 101 Carbon Dioxide 28 Anion Gap 9 BUN 22 Creatinine 1.0 Estimated Creat Clear 67.02 Estimated GFR 82 Glucose 153 H Calcium 9.0 Preliminary micro results at discharge 04/01/25 16:50 Blood Culture - Preliminary Blood NO GROWTH AFTER 72 HOURS 04/01/25 16:55 Blood Culture - Preliminary Blood NO GROWTH AFTER 72 HOURS Discharge Plan Discharge Disposition: Home, Self-Care Date of Admission: 04/01/25 17:05 Attending Provider on Discharge: Estela Buitrago Primary Care Provider: Romeo Mendez Condition: Improved Anticipated Discharge Date/Time: 04/05/25 10:53 Discharge Medications: New torsemide 20 mg Tablet 40 mg PO DAILY@0800 Qty: 30 0RF spironolactone 25 mg Tablet 25 mg PO DAILY Qty: 30 0RF Jardiance 10 mg Tablet 10 mg PO DAILY Qty: 30 0RF Continued (DME) Dexcom G7 Sensor Device See Rx Instructions .Route Qty: 3 3RF Rx Instructions: As directed metformin 500 mg tablet extended release 24 hr 1,000 mg PO BID Qty: 90 3RF insulin aspart U-100 [Novolog FlexPen U-100 Insulin] 100 unit/mL (3 mL) insulin pen 25 unit subcut TIDWMEAL Qty: 27 2RF insulin glargine [Lantus Solostar U-100 Insulin] 100 unit/mL (3 mL) insulin pen 45 unit subcut BID omega 3-wad-spr-fish oil [Fish Oil] 1,000 (120-180) mg capsule 1 cap PO DAILY multivitamin [Daily Multi-Vitamin] Tablet 1 tab PO DAILY amlodipine 10 mg tablet 10 mg PO DAILY lisinopril 40 mg tablet 40 mg PO DAILY metoprolol tartrate 100 mg tablet 100 mg PO BID Qty: 90 3RF rosuvastatin 20 mg tablet 20 mg PO QPM Qty: 90 3RF warfarin 5 mg tablet 7.5 mg PO DAILY Qty: 60 0RF Discharge Orders: Discharge Order (Routine); Ordered 04/05/25 Ordered By: Estela Buitrago Additional Instructions: 1. Talk to a new primary care provider and get a referral to a alligator shear operator, sleep medicine specialists 2. Three new scripts 3. Weigh yourself everyday, take your blood pressure daily 4. Stay has active as you can What Is Congestive Heart Failure? Congestive heart failure (HF) means the heart is not pumping blood as well as it should. This can cause fluid to build up in the body, leading to symptoms like shortness of breath, swelling in the legs or belly, and feeling tired. Heart failure can happen because the heart muscle is weak (reduced ejection fraction, HFrEF) or stiff (preserved ejection fraction, HFpEF). Your specific type of HF is HFmrEF (heart failure with mildly reduced ejection fraction; 40-45%. Considered in between the main classifications. ?? Why Is Treatment Important? Treating heart failure can help you feel better, stay out of the hospital, and live longer. Early treatment is especially important for people who are newly diagnosed, as it can help prevent the condition from getting worse. ?? [employer] of Managing Heart Failure ? ?? 1. Take Your Medicines as Prescribed ? ?? - There are several types of medicines that help the heart work better and reduce symptoms. These may include: ? ?? - SGLT2 inhibitors: Help the body get rid of extra fluid and protect the heart and kidneys. ?Jardiance, ask pharmacist about low-income subsidies, GoodRX, etc. ?? - LEVI inhibitors, ARBs, or ARNI (sacubitril/valsartan): Help relax blood vessels and lower blood pressure. ?You are on! ?? - Beta blockers: Slow the heart rate and help the heart pump more efficiently. ?You are on! ?? - Mineralocorticoid receptor antagonists (MRAs): Help the body get rid of extra salt and water.[1][2] ?Spironolactone, new script ?? - Diuretics (water pills) may be used to help remove extra fluid and reduce swelling. ?Torsemide, new script ?? - Always take your medicines exactly as your doctor tells you. Do not stop or change them without talking to your doctor. ? ?? 2. Watch for Symptoms and Know When to Get Help ? ?? - Weigh yourself every day, at the same time, and write it down. Sudden weight gain (for example, more than 2-3 pounds in a day or 5 pounds in a week) can mean you are holding onto extra fluid. ? ?? - Watch for swelling in your feet, ankles, legs, or belly. ?WEIGH YOURSELF DAILY ?? - Notice if you feel more short of breath, especially when lying down or during activities. ? ?? - If you have any of these changes, call your healthcare team right away. ? ?? 3. Follow a Heart-Healthy Lifestyle ? ?? - Limit salt (sodium): Too much salt can make your body hold onto fluid. Try to eat less than 2,000 mg of sodium per day, or as recommended by your doctor. ? ?? - Limit fluids: Some people may need to limit how much they drink each day. Ask your doctor if this is needed for you. ? ?? - Eat a balanced diet: Focus on fruits, vegetables, whole grains, lean proteins, and low-fat dairy. ? ?? - Be active: Regular physical activity, like walking, can help you feel better and improve your heart health. Start slowly and ask your doctor what is safe for you. Cardiac rehabilitation programs can be very helpful. ?? - Maintain a healthy weight: Losing extra weight can help your heart work better, especially if you are overweight. Get on Ozempic! ?? 4. Keep Up With Medical Appointments ? ?? - Regular check-ups help your healthcare team monitor your condition and adjust your treatment as needed. ? ?? - Bring a list of your medicines and any questions to each visit. ? ?? 5. Other Important Tips ? ?? - Get recommended vaccines, like the flu and pneumonia shots. ? ?? - Avoid smoking and limit alcohol. ? ?? - Manage other health problems, such as high blood pressure, diabetes, or kidney disease. TREAT YOUR SLEEP APNEA ?? What to Do If You Feel Worse ? ?? Call your healthcare team if you: ? ?? - Gain weight quickly ? ?? - Have more swelling ? ?? - Feel more short of breath ? ?? - Have chest pain or feel faint ? ?? Working With Your Healthcare Team ? ?? Managing heart failure is a team effort. Nurses, pharmacists, and doctors will work with you to help you understand your medicines, diet, and what to watch for. Following your self-care plan can help you stay healthy and avoid hospital visits.? ?? Remember: Heart failure can be managed. Taking your medicines, watching for symptoms, and making healthy choices can help you live a better, longer life. ? Activity Level: Activity as Tolerated Discharge Diet: Heart Healthy (2 gm sodium, low fat) Follow Up Appointments: [facility] [Outside] Referral Note: Any of the primary care physicians or mid-levels that are located in [place]. Not [facility]. Eliazar Mendez, would like to try a new provider. Chen Syed MD [Staff Physician, Family Practice] - 04/10/25 3:30 pm Referral Note: [facility] for hospital follow-up. Forms: [employer] Info Instructions
[2025-04-05 11:21] VITALS: BP 137/70; PULSE 58; RESP 22; TEMP 36.6; O2SAT 91
--- NOTE | 2025-04-05 13:03 | PC.NURSE ---
Discharge: Patient pleasant and cooperative. Patient vitally stable, lungs clear, BS WNL, IV removed, catheter intact. Patient denies pain and is independent in room, and no longer on oxygen with sats in the low 90s. Patient tolerating diet, urinating well, with no BM yet today. Patient signed belongings sheet and discharge form. CHF education was given thoroughly eventhough patient reported he is familiar with CHF, patient had no further questions. Patient left the floor by wheelchair to home with belongings at 1204.
== END 2025-04-05 12:04 | disposition home or self-care (01) | DRG 291 ==
LOC: ED 15:48 → MEDSURG 16:10
PROVIDERS: Family Medicine; Admitting Provider Student in an Organized Health Care Education/Training Program; Emergency Provider Student in an Organized Health Care Education/Training Program; PCP Internal Medicine; Visit Provider Student in an Organized Health Care Education/Training Program
DX: I13.0 Hypertensive heart and chronic kidney disease with heart failure and stage 1 through stage 4 chronic kidney disease, or unspecified chronic kidney disease (principal); I50.23 Acute on chronic systolic (congestive) heart failure; J96.01 Acute respiratory failure with hypoxia; Z68.42 Body mass index [BMI] 45.0-49.9, adult; E11.22 Type 2 diabetes mellitus with diabetic chronic kidney disease; E11.65 Type 2 diabetes mellitus with hyperglycemia; N18.2 Chronic kidney disease, stage 2 (mild); E66.01 Morbid (severe) obesity due to excess calories; G89.29 Other chronic pain; R10.31 Right lower quadrant pain; I43 Cardiomyopathy in diseases classified elsewhere; Z79.84 Long term (current) use of oral hypoglycemic drugs; Z79.4 Long term (current) use of insulin; Z79.01 Long term (current) use of anticoagulants; G47.30 Sleep apnea, unspecified; K80.20 Calculus of gallbladder without cholecystitis without obstruction; N40.1 Benign prostatic hyperplasia with lower urinary tract symptoms; E78.2 Mixed hyperlipidemia; Z86.14 Personal history of Methicillin resistant Staphylococcus aureus infection; Z86.718 Personal history of other venous thrombosis and embolism
CPT/HCPCS: 36415; 71045; 74177; 80048; 80053; 81001; 81003; 82803; 82962; 83540; 83550; 83605; 83615; 83735; 83880; 84439; 84443; 84484; 85018; 85025; 85027; 85379; 85610; 87040; 87631; 93005; 93306; 94761; 97165; 97530; 99284; 99285; A9270; J1815; J1938; Q9957; Q9967

== ENCOUNTER 2025-05-06 14:06 | Outpatient (CLI) | payer MEDICARE, SELFPAY | END 2025-05-06 14:07 | disposition home or self-care (01) | PROVIDERS: PCP Family Medicine; Visit Provider Family Medicine | DX: E78.2 Mixed hyperlipidemia (principal); I13.0 Hypertensive heart and chronic kidney disease with heart failure and stage 1 through stage 4 chronic kidney disease, or unspecified chronic kidney disease; E11.22 Type 2 diabetes mellitus with diabetic chronic kidney disease; N18.2 Chronic kidney disease, stage 2 (mild); I50.23 Acute on chronic systolic (congestive) heart failure; Z79.899 Other long term (current) drug therapy | CPT/HCPCS: 80053; 80061; 82043; 82570; 82607; 85610 ==

== ENCOUNTER 2025-05-17 20:56 | Outpatient (CLI) | payer MEDICARE, SELFPAY ==
--- NOTE | 2025-05-19 09:00 | W.PM.SLEEP ---
Sleep Study Details Details Interpreting Provider: Adam Date of Sleep Study: 05/17/25 Sleep Study Details: STUDY TYPE:? Hospital-based attended with CPAP titration ? BMI:? 45.4 ORDERING PROVIDER:?Jahaira INDICATION:? Concern about sleep apnea ? SLEEP SUMMARY:? 333 minutes total sleep time RESPIRATORY SUMMARY:? Mean oxygen awake 94 asleep 90 minimum 81 52.6 minutes oxygen between 80 and 88% The baseline portion of study was done in the nonsupine position. The AHI per room CMS guideline was 73.4 pretreatment. Post treatment AHI overall was 15.5 CPAP was titrated to a pressure of 16 decreased seeing AHI to 16.7. The patient did best at a pressure of 10 which included nonsupine REM sleep and AHI decreased to 6.6. PERIODIC LIMB MOVEMENTS OF SLEEP:? Pre treatment index 11.8, index with arousal 0 Post treatment index 9.4 index with arousal 0 CARDIAC:? Awake 77, asleep 73, PVCs were noted IMPRESSION:? Very severe obstructive sleep apnea with significant hypo oxygenation. CPAP titration was relatively effective in the lateral position at a pressure of 10. RECOMMENDATION: Could consider initiating CPAP pressure of 10 if patient sleeps in lateral position. Alternatively could place patient on an AutoSet CPAP pressure range 9-18. Another alternative would be a repeat in-lab titration. This patient may ultimately require bilevel.
== END 2025-05-17 20:57 | disposition home or self-care (01) ==
LOC: SLEEP 20:57
PROVIDERS: PCP Family Medicine; Visit Provider Student in an Organized Health Care Education/Training Program
DX: G47.33 Obstructive sleep apnea (adult) (pediatric) (principal)
CPT/HCPCS: 95811

== ENCOUNTER 2025-05-28 09:44 | Outpatient (CLI) | payer MEDICARE, SELFPAY ==
--- NOTE | 2025-05-28 10:00 | CRLHL7_ITS ---
For Patients: As a result of the Century Cures Act, medical imaging exams and procedure reports are released immediately into your electronic medical record. You may view this report before your referring provider. If you have questions, please contact your health care provider. Indication: F/U ABNORMALITY SEEN ON CT AP IN FEBRUARY Technique: CT Chest w/ 75cc [id number] intravenous contrast Please note that all CT scans at this facility use dose modulation, iterative reconstruction, and/or weight-based dosing when appropriate to reduce radiation dose to as low as reasonably achievable. Comparison: 04/01/2025 Findings: The visualized thyroid is within normal limits. No enlarged intrathoracic lymph nodes. No pleural or pericardial effusion. Multiple intrahepatic cysts again noted along with dystrophic calcification within the periphery of the liver. No hiatal hernia. No fracture. Multilevel discogenic spurring. Mild dependent atelectasis. Resolution of the previously noted pleural effusions and bilateral parenchymal densities. 2 millimeter calcified granuloma within the left lower lobe, . Bilateral subareolar gynecomastia. Impression: Resolution of bilateral pleural effusions and adjacent parenchymal densities. Please note that all CT scans at this facility use dose modulation, iterative reconstruction, and/or weight-based dosing when appropriate to reduce radiation dose to as low as reasonably achievable. Dictated by Breezy Hooper MD @ 05/28/2025 11:35:14 AM (Electronically Signed)
== END 2025-05-28 09:45 | disposition home or self-care (01) ==
LOC: CT 09:45
PROVIDERS: PCP Family Medicine; Visit Provider Internal Medicine
DX: R91.8 Other nonspecific abnormal finding of lung field (principal)
CPT/HCPCS: 71260; Q9967

== ENCOUNTER 2025-06-04 12:13 | Inpatient (IN) | payer MEDICARE, SELFPAY ==
[2025-06-04] VITALS (10 sets, daily range): BP systolic 141–156; BP diastolic 69–77; PULSE 73–81; RESP 20–26; TEMP 35.9–36.7; O2SAT 91–96; BMI 45.4
--- NOTE | 2025-06-04 12:51 | ED.GENADULT ---
HPI - General Adult General Time Seen by Provider: 12:51 Date Seen: 06/04/25 Chief complaint: Shortness of Breath/Dyspnea Stated complaint: Needs infusion Time Seen by Provider: 06/04/25 12:49 Source: patient Mode of arrival: ambulatory Limitations: no limitations History of Present Illness HPI narrative: Juma is a 69-year-old male presents from cardiology clinic history of congestive heart failure last EF 40-45%, on anticoagulation with Coumadin, ascending aortic dilatation 0.5 cm, obesity, obstructive sleep apnea, type 2 diabetes mellitus, cardiomyopathy hypertension, chronic kidney disease presents emerged department with worsening shortness of breath. Patient states he has not been and his torsemide 40 mg daily over the last month due to insurance reasons, he does take his spironolactone 25 mg daily. He has noticed progressively worsening weight gain and shortness of breath over the last year. He has noticed increased swelling to his lower abdominal area and lower extremities, patient is about 290 lbs. Denies any coughing, fevers or chills, no dizziness or lightheadedness, he does sleep in a recliner which is not new. He also wears CPAP machine. 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 Related Data Home Medications ?Medication ?Instructions ?Recorded ?Confirmed amlodipine 10 mg tablet 10 mg PO DAILY 11/13/24 06/11/25 lisinopril 40 mg tablet 40 mg PO DAILY 11/13/24 06/11/25 multivitamin (Daily Multi-Vitamin 1 tab PO DAILY 11/13/24 06/11/25 tablet) omega 0-gnc-thc-fish oil 1,000 mg 1 cap PO DAILY 11/13/24 06/11/25 (120 mg-180 mg) capsule (Fish Oil) aspirin 325 mg tablet 325 mg PO DAILY 06/04/25 06/11/25 Previous Rx's ?Medication ?Instructions ?Recorded rosuvastatin 20 mg tablet 20 mg PO QPM #90 tabs 11/20/24 blood-glucose sensor (kajeetcom G7 #3 ea 01/21/25 Sensor device) insulin aspart U-100 100 unit/mL 25 unit (0.25 mL) subcut TIDWMEAL 01/21/25 (3 mL) subcutaneous pen (Novolog #27 mL FlexPen U-100 Insulin aspart) metformin 500 mg tablet,extended 1,000 mg (2 x 500 mg) PO BID #360 04/27/25 release 24 hr tabs metoprolol tartrate 100 mg tablet 100 mg PO BID #180 tabs 04/27/25 torsemide 20 mg tablet 40 mg (2 x 20 mg) PO DAILY@0800 05/06/25 #180 tabs spironolactone 25 mg tablet 50 mg (2 x 25 mg) PO DAILY #60 tabs 06/07/25 warfarin 5 mg tablet 5 - 10 mg PO DAILY #90 tabs 07/02/25 insulin glargine 100 unit/mL (3 55 unit (0.55 mL) subcut BID #15 mL 07/09/25 mL) subcutaneous pen (Lantus Solostar U-100 Insulin) Allergies Allergy/AdvReac Type Severity Reaction Status Date / Time No Known Drug Allergies Allergy Verified 06/11/25 10:19 Review of Systems Status of ROS: Reports: 10 or more systems reviewed and unremarkable except as noted in History and below [facility] Medical History (Updated 07/10/25 @ 00:01 by Background Daemon) Lymphedema ?I89.0 - Lymphedema, not elsewhere classified (ICD-10) 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(s), including pelvic girdle (ICD-10) HFrEF (heart failure with reduced ejection fraction) ?I50.20 - Unspecified systolic (congestive) heart failure (ICD-10) Uncontrolled diabetes mellitus Patient cannot afford medications ?Z59.86 - Financial insecurity (ICD-10) BPH loc w urin obs/LUTS ?N40.1 - Benign prostatic hyperplasia with lower urinary tract symptoms (ICD-10) Mural thrombus of heart (2017) ?I51.3 - Intracardiac thrombosis, not elsewhere classified (ICD-10) Patent foramen ovale (10/09/16) ?Q21.12 - Patent foramen ovale (ICD-10) Ascending aorta dilation (07/02/23) ?I77.810 - Thoracic aortic ectasia (ICD-10) Acute heart failure with mildly reduced ejection fraction (HFmrEF) (03/2025) ?I50.21 - Acute systolic (congestive) heart failure (ICD-10) Cholelithiasis ?K80.20 - Calculus of gallbladder without cholecystitis without obstruction (ICD-10) MRSA bacteremia ?R78.81 - Bacteremia (ICD-10) ?B95.62 - Methicillin resistant Staphylococcus aureus infection as the cause of diseases classified elsewhere (ICD-10) Abscess of prostate (01/2024) ?N41.2 - Abscess of prostate (ICD-10) CKD (chronic kidney disease) stage 2, GFR 60-89 ml/min ?N18.2 - Chronic kidney disease, stage 2 (mild) (ICD-10) Sleep apnea (03/30/16) ?G47.30 - Sleep apnea, unspecified (ICD-10) Right atrial thrombus (10/08/19) ?I51.3 - Intracardiac thrombosis, not elsewhere classified (ICD-10) Hypertension (03/30/16) ?I10 - Essential (primary) hypertension (ICD-10) H/O bacterial endocarditis (06/21/18) ?Z86.79 - Personal history of other diseases of the circulatory system (ICD-10) Type 2 diabetes mellitus (03/03/11) ?E11.9 - Type 2 diabetes mellitus without complications (ICD-10) Cardiomyopathy (07/10/18) ?I42.9 - Cardiomyopathy, unspecified (ICD-10) Anticoagulation monitoring, INR range 2-3 (10/09/19) ?Z79.01 - FDC (current) use of anticoagulants (ICD-10) Adenomatous colon polyp (01/01/18) ?D12.6 - Benign neoplasm of colon, unspecified (ICD-10) Surgical History History of prostate surgery (01/2024) ?Z98.890 - Other specified postprocedural states (ICD-10) H/O cystoscopy ?Z98.890 - Other specified postprocedural states (ICD-10) H/O colonoscopy ?Z98.890 - Other specified postprocedural states (ICD-10) Family History Mother Cardiac arrhythmia Father Leukemia Diabetes Brother Non-melanoma skin cancer Social History (Updated 07/08/25 @ 23:47 by Nadeen Tuttle MD) Narrative: since 1991, lives independently at [facility], 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 In the past 12 months, utilities in danger of being shut off: no In past 12 months, lack of transportation kept you from medical appts, meetings, work, or getting things needed for daily living: no In the past 12 mos, have been you worried that your food would run out before you had money to buy more?: never true In the past 12 mos, the food you bought just didn't last and you didn't have money to buy more?: never true Highest level of school completed/degree received: Bachelor's degree Smoking Status: Former smoker What tobacco products do you use: cigars Do you use any of these nicotine containing products: None Second hand tobacco smoke exposure: No How often do you have a drink containing alcohol: monthly or less Alcohol type: beer, wine and hard liquor How many standard drinks containing alcohol do you have on a typical day: 1 or 2 How often do you have six or more drinks on one occasion: Never AUDIT-C Alcohol total score: 1 Non-prescribed substance use: denies use Caffeine: Yes (coffee rarely) How often does anyone, including family, friends and others, physically hurt you: never How often does anyone, including family, friends and others, insult or talk down to you: never How often does anyone, including family, friends and others, threaten you with harm: sometimes How often does anyone, including family, friends and others, scream or curse at you: never service: No Health Related Social Needs: Other personal risk factors, not elsewhere classified (Z91.89) Exam Narrative: Exam Narrative: General: No obvious distress, sitting comfortably, nontoxic in appearance HEENT: Oropharynx clear and moist, pupils equal round react to light, extraocular muscles intact Lungs: Mild bibasilar crackles Heart: Normal sinus rhythm S1-S2 Abdomen: Increased lower abdominal girth, nontender to palpation, bowel sounds present Lower extremities: +3 pitting edema bilaterally, venous stasis changes present CMS intact Neuro: Alert awake and oriented x3 Const: Vital Signs, click to edit/add: Vital Signs - 24 hr 06/04/25 12:24 06/04/25 14:40 Temperature 96.7 F L Pulse Rate [Pulse Oximeter] 79 75 Respiratory Rate 20 Blood Pressure [Ri ght Upper Arm] 154/74 H Pulse Oximetry 92 93 Oxygen Delivery Me thod Room Air Room Air Course Course ED Course: 1:20 PM: aidet performed, vitals are stable at this time, workup will include CBC, magnesium, NT proBNP, CMP, INR, XR chest PA and lateral, differential includes acute on chronic heart failure, hepatic congestion secondary to heart failure, pneumonia, bronchitis, chronic lymphedema, medication noncompliance, COPD exacerbation as well as all etiologies, patient was seen here last month CT abdomen pelvis with IV contrast showed no acute abnormalities, he also had a CT chest with IV contrast 05/28, which showed resolving pleural effusions. May consider reaching out to Cardiology have a [facility]. Likely admit for acute on chronic heart failure. Reevaluation(s) Reevaluation #1: Labs were otherwise reassuring, NT proBNP similar to previous, XR chest PA and lateral stable, patient maintain O2 sats greater than 90% on room air, will plan to reach out to [facility] for further recommendations. Was able to speak to Cardiology [facility], he recommended admission for IV diuresis. Plan to admit for intravenous furosemide drip to aggressively diurese the patient. Monitor electrolytes and renal function and vital signs. Reevaluation #2: Spoke with hospitalist Dr. Stevens, he accepts care of the patient to [facility] surgery telemetry bed. All questions answered. Vital Signs Vital signs: Initial Vital Signs Temperature 96.7 F L 06/04/25 12:24 Temperature Source Temporal Artery Scan 06/04/25 12:24 Pulse Rate 79 06/04/25 12:24 Respiratory Rate 20 06/04/25 12:24 Blood Pressure 154/74 H 06/04/25 12:24 Blood Pressure Mean 100 06/04/25 12:24 Blood Pressure Position Sitting 06/04/25 12:24 Pulse Oximetry 92 06/04/25 12:24 Oxygen Delivery Method Room Air 06/04/25 12:24 Vital Signs Temperature 96.7 F L 06/04/25 12:24 Pulse Rate 79 06/04/25 12:24 Respiratory Rate 20 06/04/25 12:24 Blood Pressure 154/74 H 06/04/25 12:24 Pulse Oximetry 92 06/04/25 12:24 Oxygen Delivery Method Room Air 06/04/25 12:24 Temperature 97.8 F 06/07/25 15:00 Pulse Rate 74 06/07/25 15:00 Respiratory Rate 16 06/07/25 15:00 Blood Pressure 124/66 06/07/25 15:00 Pulse Oximetry 94 06/07/25 15:00 Oxygen Delivery Method Room Air 06/07/25 15:00 Medications Administered Medications: Discontinued Medications Generic Name Dose Route Start Last Admin Trade Name Freq PRN Reason Stop Dose Admin Amlodipine Besylate 10 mg 06/05/25 09:00 06/05/25 09:30 Amlodipine 10 Mg Tablet PO 10 mg DAILY BILLIE Administration Amlodipine Besylate 10 mg 06/06/25 07:46 06/07/25 09:26 Amlodipine 10 Mg Tablet PO 10 mg DAILY BILLIE Administration Aspirin 325 mg 06/05/25 09:00 06/07/25 09:26 Aspirin Ec 325 Mg Tablet PO 325 mg DAILY BILLIE Administration Furosemide 40 mg 06/04/25 14:00 06/04/25 15:14 Furosemide 10 Mg/Ml Inj IVP 06/04/25 14:01 40 mg ONCE ONE Administration Furosemide 40 mg 06/04/25 14:23 06/04/25 14:38 Furosemide 40 Mg Tablet PO 06/04/25 14:24 40 mg ONCE ONE Administration Furosemide 80 mg 06/05/25 14:30 06/05/25 15:21 Furosemide 10 Mg/Ml Inj IVP 80 mg BID@0900,1400 BILLIE Administration Furosemide 80 mg 06/06/25 08:00 06/07/25 16:28 Furosemide 10 Mg/Ml Inj IVP 80 mg Q8H BILLIE Administration Furosemide 100 mg/ Dextrose 110 mls @ 10 mls/hr 06/04/25 16:25 06/06/25 08:57 IVPB Infused Q10H BILLIE Infusion Insulin Aspart 25 unit 06/04/25 18:00 06/07/25 12:08 Insulin Aspart 100 Unit/Ml SUBCUT 25 unit TIDWM BILLIE Administration Insulin Aspart 0 unit 06/04/25 17:30 06/07/25 12:08 Insulin Aspart 100 Unit/Ml SUBCUT 12 unit ACHS BILLIE Administration Protocol Insulin Glargine 55 unit 06/04/25 21:00 06/06/25 08:43 Insulin Glargine,Hum.Rec.Anlog 100 Unit/Ml Insuln.Pen SUBCUT 55 unit BID BILLIE Administration Insulin Glargine 60 unit 06/06/25 21:00 06/07/25 09:31 Insulin Glargine,Hum.Rec.Anlog 100 Unit/Ml Insuln.Pen SUBCUT 60 unit BID BILLIE Administration Lisinopril 40 mg 06/05/25 09:00 06/07/25 09:26 Lisinopril 20 Mg Tablet PO 40 mg DAILY BILLIE Administration Magnesium Oxide 400 mg 06/04/25 21:00 06/07/25 09:26 Magnesium Oxide 400 Mg Tablet PO 400 mg BID BILLIE Administration Metformin HCl 1,000 mg 06/04/25 18:00 06/07/25 09:36 Metformin Er 500 Mg PO 1,000 mg BIDWM BILLIE Administration Metoprolol Tartrate 100 mg 06/04/25 21:00 06/07/25 09:26 Metoprolol Tartrate 100 Mg Tablet PO 100 mg BID BILLIE Administration Potassium Bicarbonate 25 meq 06/04/25 16:25 06/04/25 22:04 Potassium Bicarb 25 Meq Effervescent Tab PO 06/04/25 20:26 25 meq Q2H BILLIE Administration Potassium Chloride 20 meq 06/05/25 08:00 06/07/25 09:25 Potassium Chloride 10 Meq Capsule Er PO 20 meq DAILYWM BILLIE Administration Rosuvastatin Calcium 20 mg 06/04/25 21:00 06/06/25 20:29 Rosuvastatin Calcium 10 Mg Tablet PO 20 mg HS BILLIE Administration Sodium Chloride 5 ml 06/04/25 21:00 06/07/25 09:27 Sodium Chloride 0.9 % (Flush) 10 Ml Syringe IVF 5 ml BID BILLIE Administration Spironolactone 50 mg 06/05/25 09:00 06/07/25 09:26 Spironolactone 25 Mg Tablet PO 50 mg DAILY BILLIE Administration Warfarin Sodium 10 mg 06/04/25 17:00 06/04/25 18:05 Warfarin 5 Mg Tablet PO 06/04/25 17:01 Not Given ONCE ONE Warfarin Sodium 5 mg 06/05/25 17:00 06/05/25 17:41 Warfarin 5 Mg Tablet PO 06/05/25 17:01 5 mg DAILYC ONE Administration Warfarin Sodium 6 mg 06/06/25 17:00 06/06/25 16:44 Warfarin 3 Mg Tablet PO 06/06/25 17:01 6 mg ONCE ONE Administration Warfarin Sodium 5 mg 06/07/25 17:00 06/07/25 16:28 Warfarin 5 Mg Tablet PO 06/07/25 17:01 5 mg ONCE ONE Administration Medical Decision Making Lab Data Labs: Lab Results 06/04/25 06/05/25 Range/Units 13:40 06:30 WBC 7.70 (4.50-11.00) K/uL RBC 5.09 (4.30-5.90) m/uL Hgb 14.6 (13.5-17.5) gm/dL Hct 42.8 (37.0-53.0) % MCV 84 (80-100) fL MCH 29 (26-34) pg MCHC 34 (32-36) gm/dL RDW Coeff of Yunior 14.6 (11.5-15.5) % Plt Count 161 (140-440) K/uL Neut % (Auto) 70.6 (42.0-72.0) % Lymph % (Auto) 12.6 L (20-44) % [place] % (Auto) 12.9 H (0.0-11.0) % Eos % (Auto) 2.6 (0.0-7.0) % Baso % (Auto) 0.8 (0.0-3.0) % Neut # (Auto) 5.44 (1.7-7.0) K/uL Lymph # (Auto) 1.00 (0.90-2.90) K/uL [place] # (Auto) 1.00 H (0.00-0.90) K/UL Eos # (Auto) 0.20 (0.00-0.50) K/uL Baso # (Auto) 0.06 (0.00-0.30) K/uL Abs Immat Gran (auto) 0.04 (0.00-0.30) K/uL Imm/Tot Granulo (auto) 0.5 % INR 2.20 H 2.33 H (0.91-1.10) VBG pH 7.434 H (7.32-7.43) VBG pCO2 44 (40-50) mmHG VBG pO2 55.5 H (25-47) mmHG VBG HCO3 29 H (21-28) mmol/L Sodium 136 134 L (135-149) mmol/L Potassium 4.2 4.3 (3.6-5.1) mmol/L Chloride 101 95 L (96-114) mmol/L Carbon Dioxide 24 29 (20-32) mmol/L Anion Gap 11 10 (7-15) mEq/L BUN 15 16 (7-30) mg/dL Creatinine 0.9 1.0 (0.5-1.5) mg/dL Estimated Creat Clear 67.02 67.02 Estimated GFR 94 82 ml/min Glucose 266 H 253 H (60-115) mg/dL Calcium 9.4 9.3 (8.4-10.6) mg/dL Magnesium 1.8 1.7 (1.5-2.6) mg/dL Total Bilirubin 0.6 (0.1-1.5) mg/dL AST 49 H (12-35) U/L ALT 44 (4-50) U/L Alkaline Phosphatase 73 (40-150) U/L NT-Pro-B Natriuret Pep 99 (See Note) pg/mL Total Protein 7.2 (6.0-8.3) g/dL Albumin 4.2 (3.3-5.0) g/dL Discharge Plan Discharge Clinical Impression: Acute on chronic congestive heart failure Condition: Improved Activity Level: No Restrictions Discharge Diet: Heart Healthy (2 gm sodium, low fat) Procedures ABG Interpretation ABG Results: 06/05/25 06:30 VBG pH 7.434 H VBG pCO2 44 VBG pO2 55.5 H VBG HCO3 29 H
--- NOTE | 2025-06-04 13:10 | CRLHL7_ITS ---
For Patients: As a result of the Century Cures Act, medical imaging exams and procedure reports are released immediately into your electronic medical record. You may view this report before your referring provider. If you have questions, please contact your health care provider. INDICATION: Shortness of breath TECHNIQUE: Two view chest. FINDINGS: The lungs are clear. The heart, mediastinum and pulmonary vessels are of normal size. There is no evidence of pleural disease. IMPRESSION: Negative chest. Dictated by Pallavi Foreman MD @ 06/04/2025 1:49:01 PM (Electronically Signed)
[2025-06-04 13:49] LABS: Hematocrit* 42.8 % (37.0-53.0); Hemoglobin* 14.6 gm/dL (13.5-17.5); Immature Granulocytes Abs Auto 0.04 K/uL (0.00-0.30); Immature Granulocytes Pct Auto 0.5 %; Mean Corpuscular HGB Conc 34 gm/dL (32-36); Mean Corpuscular Hemoglobin 29 pg (26-34); Mean Corpuscular Volume 84 fL (80-100); RDW Coefficient of Variation % 14.6 % (11.5-15.5); Red Blood Count* 5.09 m/uL (4.30-5.90); White Blood Count* 7.70 K/uL (4.50-11.00)
[2025-06-04 13:53] LABS: Lymphocytes Absolute Auto 1.00 K/uL (0.90-2.90); Slide Review Reflex No
[2025-06-04 14:08] LABS: Albumin* 4.2 g/dL (3.3-5.0); Chloride* 101 mmol/L (96-114); INR 2.20 (0.91-1.10); Potassium* 4.2 mmol/L (3.6-5.1); Prothrombin Time 25.6 Seconds; Sodium* 136 mmol/L (135-149)
[2025-06-04 14:10] LABS: Alanine Aminotransferase* 44 U/L (4-50); Aspartate Amino Transferase* 49 U/L (12-35); Blood Urea Nitrogen* 15 mg/dL (7-30); Creatinine* 0.9 mg/dL (0.5-1.5); Est. Creatinine Clearance* 67.02; Estimated Glomerular Filt Rate 94 ml/min
[2025-06-04 14:11] LABS: Alkaline Phosphatase* 73 U/L (40-150); Anion Gap 11 mEq/L (7-15); Bilirubin Total* 0.6 mg/dL (0.1-1.5); Calcium* 9.4 mg/dL (8.4-10.6); Carbon Dioxide* 24 mmol/L (20-32); Glucose* 266 mg/dL (60-115); Total Protein* 7.2 g/dL (6.0-8.3)
[2025-06-04 14:20] LABS: NT Pro B Type NatriureticPept* 99 pg/mL (See Note)
[2025-06-04] MEDS: FUROSEMIDE 40 MG TABLET PO (14:38)
[2025-06-04] MEDS: FUROSEMIDE 10 MG/ML inj 40 MG IVP (15:14)
[2025-06-04] MEDS: DEXTROSE 5% IVPB (17:48)
[2025-06-04] MEDS: FUROSEMIDE IVPB (17:48)
[2025-06-04] MEDS: INSULIN ASPART 100 UNIT/ML 25 UNIT SUBCUT (17:49)
[2025-06-04] MEDS: METFORMIN ER 500 MG 1000 MG PO (17:49)
[2025-06-04] MEDS: INSULIN ASPART 100 UNIT/ML SUBCUT ×2 (17:50→21:50)
[2025-06-04] MEDS: POTASSIUM BICARB 25 MEQ EFFERVESCENT TAB PO ×2 (17:50→22:04)
--- NOTE | 2025-06-04 18:52 | PC.NURSE ---
Nursing Care Hours: [id number] Pt this shift arrived to unit alert and oriented, calm and cooperative. VSS. SOB with exertion, spo2 stable. Insulin given per sliding scale and MAR. Pt independent in room. Scattered sores on anterior bilat legs. Pt states the skin is taut from edema and when he has an itch, the skin breaks easily. Pt also states using hydrogen peroxide as cleaning agent on wounds. Masking Machine Feeder discussed drying effects to skin with hydrogen peroxide, pt unreceptive.
--- NOTE | 2025-06-04 19:39 | PM.IMHP1 ---
Assessment and Plan Assessment and plan (1) Congestive heart failure: Problem comment: Echocardiogram from April 03, 2025 shows ejection fraction of 40-45% without significant valvular disease. Status: Acute (2) Acute on chronic congestive heart failure: Problem comment: On this admission he predominantly has right-sided heart failure with generalized edema and no obvious pulmonary edema. It appears his torsemide dose on discharge in March was approximately right. Consider resuming torsemide or switching to furosemide which may need to be twice daily. Trial increasing spironolactone. Will not initiate expensive guideline therapy because he will not fill the prescriptions. Status: Acute (3) MILES (obstructive sleep apnea): Problem comment: Not using CPAP at home. He reports there is a CPAP that is been prescribed for him we waiting for him in [place] when he leaves the hospital Status: Acute (4) Uncontrolled diabetes mellitus: Problem comment: Hemoglobin A1c from 05/06/2025 is 11.9. He would benefit from Jardiance and GLP1 medication but cannot afford these. Continue to review options for getting guideline directed therapy for both heart failure and diabetes. Inpatient will titrate insulin dosing. Status: Acute (5) Patient cannot afford medications: Problem comment: Patient reports not being able to afford GLP 1 and SGLT to medications due to cost. I encouraged him to communicate with his primary care provider as well as other physicians if he is not taking medicines due to cost so that adjustments can be made to help manage his diseases and prevent hospitalizations. Status: Chronic (6) Anticoagulation monitoring, INR range 2-3: Problem comment: For h/o R mural thrombus and & PFO. Goal 2-3. Status: Chronic (7) Mural thrombus of heart: Problem comment: -R mural thrombus and PFO. Chronic anticoagulation Goal 2-3. Status: Chronic Plan Admit to hospital for intravenous furosemide drip to aggressively diurese the patient. Monitor electrolytes and renal function and vital signs. Ongoing discussion with patient about his financial challenges and the benefits of optimal care for his heart failure and diabetes. Total Time Spent Total Time Spent: Total time spent today is 90 minutes in reviewing outside records, coordination of care, discussion with patient and friend and other providers about ongoing management of heart failure, obesity, diabetes and cost of medications Hospitalist- H&P: HPI History of Present Illness Date Seen: 06/04/25 Chief complaint: Needs infusion Narrative: Juma South is a 69 year old male admitted to the hospital with progressive symptoms of heart failure for months. Patient reports that he is felt exertional dyspnea and had significant edema and weight gain developing over the last several months. He was seen by the stone crusher operator in clinic today who referred him to the hospital for diuresis. He is not having any chest pain. In reviewing his records I see his weight in November 2024 was about 125 kg. At that time he was hospitalized with MRSA bacteremia/UTI/prostatic abscess and had a prolonged outpatient course of IV and oral antibiotics. He is admitted to the hospital in March for heart failure at a weight of 140 kg. He was diuresed down to 136 kg. During that hospital stay he was started on spironolactone, Jardiance and torsemide. He continued on the spironolactone, did not get the Jardiance due to cost and did take the torsemide for 1 month but then the cost went up and so he did not get a refill. At the end of April his weight was 130.6 kg, down about 5.4 kg from March admission. He has had no torsemide or loop diuretic in the past month. His current weight is 131.5 kg. He reports not having any chest pain. No dyspnea at rest but worsening dyspnea with exertion. Worsening edema. No fever. 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 Review of Systems Narrative: Patient reports doing well other than issues outlined above. Medical Decision Making Medical Decision Making Has patient completed a Health Care Directive: No PFSH PFS Medical History (Updated 06/04/25 @ 20:02 by Dayton Stevens MD) Uncontrolled diabetes mellitus Patient cannot afford medications ?Z59.86 - Financial insecurity (ICD-10) BPH loc w urin obs/LUTS ?N40.1 - Benign prostatic hyperplasia with lower urinary tract symptoms (ICD-10) Mural thrombus of heart (2017) ?I51.3 - Intracardiac thrombosis, not elsewhere classified (ICD-10) Patent foramen ovale (10/09/16) ?Q21.12 - Patent foramen ovale (ICD-10) Ascending aorta dilation (07/02/23) ?I77.810 - Thoracic aortic ectasia (ICD-10) Acute heart failure with mildly reduced ejection fraction (HFmrEF) (03/2025) ?I50.21 - Acute systolic (congestive) heart failure (ICD-10) Cholelithiasis ?K80.20 - Calculus of gallbladder without cholecystitis without obstruction (ICD-10) MRSA bacteremia ?R78.81 - Bacteremia (ICD-10) ?B95.62 - Methicillin resistant Staphylococcus aureus infection as the cause of diseases classified elsewhere (ICD-10) Abscess of prostate (01/2024) ?N41.2 - Abscess of prostate (ICD-10) CKD (chronic kidney disease) stage 2, GFR 60-89 ml/min ?N18.2 - Chronic kidney disease, stage 2 (mild) (ICD-10) Sleep apnea (03/30/16) ?G47.30 - Sleep apnea, unspecified (ICD-10) Right atrial thrombus (10/08/19) ?I51.3 - Intracardiac thrombosis, not elsewhere classified (ICD-10) Hypertension (03/30/16) ?I10 - Essential (primary) hypertension (ICD-10) H/O bacterial endocarditis (06/21/18) ?Z86.79 - Personal history of other diseases of the circulatory system (ICD-10) Type 2 diabetes mellitus (03/03/11) ?E11.9 - Type 2 diabetes mellitus without complications (ICD-10) Cardiomyopathy (07/10/18) ?I42.9 - Cardiomyopathy, unspecified (ICD-10) Anticoagulation monitoring, INR range 2-3 (10/09/19) ?Z79.01 - [facility] (current) use of anticoagulants (ICD-10) Adenomatous colon polyp (01/01/18) ?D12.6 - Benign neoplasm of colon, unspecified (ICD-10) Surgical History History of prostate surgery (01/2024) ?Z98.890 - Other specified postprocedural states (ICD-10) H/O cystoscopy ?Z98.890 - Other specified postprocedural states (ICD-10) H/O colonoscopy ?Z98.890 - Other specified postprocedural states (ICD-10) Family History Mother Cardiac arrhythmia Father Leukemia Diabetes Brother Non-melanoma skin cancer Social History Narrative: since 1991, lives independently at [facility], 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, 1 child Walks neighbors hieu mendez 3 times a week, likes to garden Smoked cigars, quit 2004 Rare alcohol use What is your current living situation?: I presently have a place to live Problems where you live: mold and other Problems where you live details: poor ventilation In the past 12 months, utilities in danger of being shut off: no In past 12 months, lack of transportation kept you from medical appts, meetings, work, or getting things needed for daily living: no In the past 12 mos, have been you worried that your food would run out before you had money to buy more?: never true In the past 12 mos, the food you bought just didn't last and you didn't have money to buy more?: never true Highest level of school completed/degree received: Bachelor's degree Smoking Status: Never smoker Do you use any of these nicotine containing products: None Second hand tobacco smoke exposure: No How often do you have a drink containing alcohol: monthly or less Alcohol type: beer, wine and hard liquor How many standard drinks containing alcohol do you have on a typical day: 1 or 2 How often do you have six or more drinks on one occasion: Never AUDIT-C Alcohol total score: 1 Non-prescribed substance use: denies use Caffeine: Yes (coffee rarely) How often does anyone, including family, friends and others, physically hurt you: never How often does anyone, including family, friends and others, insult or talk down to you: rarely How often does anyone, including family, friends and others, threaten you with harm: rarely How often does anyone, including family, friends and others, scream or curse at you: never service: No Health Related Social Needs: Inadequate housing (Z59.1) and Other personal risk factors, not elsewhere classified (Z91.89) Meds Home Medications and Allergies Home Medications ?Medication ?Instructions ?Recorded ?Confirmed ?Type amlodipine 10 mg tablet 10 mg PO DAILY 11/13/24 06/04/25 History lisinopril 40 mg tablet 40 mg PO DAILY 11/13/24 06/04/25 History multivitamin (Daily Multi-Vitamin 1 tab PO DAILY 11/13/24 06/04/25 History tablet) omega 3-ucp-pqx-fish oil 1,000 mg 1 cap PO DAILY 11/13/24 06/04/25 History (120 mg-180 mg) capsule (Fish Oil) rosuvastatin 20 mg tablet 20 mg PO QPM #90 tabs 11/20/24 06/04/25 Rx blood-glucose sensor (Dexcom G7 #3 ea 01/21/25 06/04/25 Rx Sensor device) insulin aspart U-100 100 unit/mL 25 unit (0.25 mL) subcut TIDWMEAL 01/21/25 06/04/25 Rx (3 mL) subcutaneous pen (Novolog #27 mL FlexPen U-100 Insulin aspart) empagliflozin 10 mg tablet 10 mg PO DAILY #30 tabs 04/05/25 06/04/25 Rx (Jardiance) metformin 500 mg tablet,extended 1,000 mg (2 x 500 mg) PO BID #360 04/27/25 06/04/25 Rx release 24 hr tabs metoprolol tartrate 100 mg tablet 100 mg PO BID #180 tabs 04/27/25 06/04/25 Rx spironolactone 25 mg tablet 25 mg PO DAILY #90 tabs 05/06/25 06/04/25 Rx torsemide 20 mg tablet 40 mg (2 x 20 mg) PO DAILY@0800 05/06/25 06/04/25 Rx #180 tabs insulin glargine 100 unit/mL (3 55 unit (0.55 mL) subcut BID #15 mL 05/07/25 06/04/25 Rx mL) subcutaneous pen (Lantus Solostar U-100 Insulin) aspirin 325 mg tablet 325 mg PO DAILY 06/04/25 06/04/25 History warfarin 5 mg tablet 5 - 10 mg PO DAILY 06/04/25 06/04/25 History Allergies Allergy/AdvReac Type Severity Reaction Status Date / Time No Known Drug Allergies Allergy Verified 06/04/25 12:36 Exam Narrative: Exam Narrative: He is alert and appears in no distress breathing room air. Oropharynx with small airway. Neck is supple without mass or adenopathy. No obvious jugular venous distension. Respirations are clear to auscultation without wheezing rales or rhonchi. Diminished breath sounds. Cardiovascular: S1, S2, regular rate and rhythm. Abdomen: Bowel sounds active. Abdomen is protuberant soft and nontender. Lower extremities with 3+ edema to the distal thighs bilaterally. He has intact pedal pulses. Feet are warm to touch. Small skin ulcers without significant cellulitis. Const: Vital Signs, click to edit/add: Vital Signs - 24 hr 06/04/25 12:24 06/04/25 14:40 06/04/25 15:01 Temperature 96.7 F L Pulse Rate 74 Pulse Rate [Left P ulse Oximeter] Pulse Rate [Pulse Oximeter] 79 75 Respiratory Rate 20 Blood Pressure Blood Pressure [Le ft Arm] Blood Pressure [Ri ght Upper Arm] 154/74 H Pulse Oximetry 92 93 92 Oxygen Delivery Me thod Room Air Room Air 06/04/25 15:03 06/04/25 15:15 06/04/25 15:18 Temperature Pulse Rate 73 73 75 Pulse Rate [Left P ulse Oximeter] Pulse Rate [Pulse Oximeter] Respiratory Rate Blood Pressure 156/74 H 154/77 H Blood Pressure [Le ft Arm] Blood Pressure [Ri ght Upper Arm] Pulse Oximetry 91 93 94 Oxygen Delivery Me thod 06/04/25 15:19 06/04/25 16:27 06/04/25 16:27 Temperature Pulse Rate 74 Pulse Rate [Left P ulse Oximeter] 78 Pulse Rate [Pulse Oximeter] Respiratory Rate 26 H 20 Blood Pressure Blood Pressure [Le ft Arm] 147/71 H Blood Pressure [Ri ght Upper Arm] Pulse Oximetry 93 94 93 Oxygen Delivery Me thod Room Air Room Air Documenting provider has reviewed patient's vital signs: yes Hospitalist - H&P: Result Labs Labs: Short CBC 06/04/25 Range/Units 13:40 WBC 7.70 (4.50-11.00) K/uL Hgb 14.6 (13.5-17.5) gm/dL Hct 42.8 (37.0-53.0) % Plt Count 161 (140-440) K/uL BMP 06/04/25 13:40 Sodium 136 Potassium 4.2 Chloride 101 Carbon Dioxide 24 BUN 15 Creatinine 0.9 Glucose 266 H Calcium 9.4 Liver Function 06/04/25 Range/Units 13:40 Total Bilirubin 0.6 (0.1-1.5) mg/dL AST 49 H (12-35) U/L ALT 44 (4-50) U/L Alkaline Phosphatase 73 (40-150) U/L Albumin 4.2 (3.3-5.0) g/dL ECG Attestation: I personally reviewed and interpreted this ECG as follows: (Normal sinus rhythm, first-degree AV block, rate of 64) ECG interpretation date: 06/04/25 Imaging Chest x-ray: Radiologist's impression: INDICATION: Shortness of breath TECHNIQUE: Two view chest. FINDINGS: The lungs are clear. The heart, mediastinum and pulmonary vessels are of normal size. There is no evidence of pleural disease. IMPRESSION: Negative chest. CT scan - chest: Radiologist's impression: CHEST CT SCAN FROM 05/28/2025: Indication: F/U ABNORMALITY SEEN ON CT AP IN FEBRUARY Technique: CT Chest w/ 75cc [id number] intravenous contrast Please note that all CT scans at this facility use dose modulation, iterative reconstruction, and/or weight-based dosing when appropriate to reduce radiation dose to as low as reasonably achievable. Comparison: 04/01/2025 Findings: The visualized thyroid is within normal limits. No enlarged intrathoracic lymph nodes. No pleural or pericardial effusion. Multiple intrahepatic cysts again noted along with dystrophic calcification within the periphery of the liver. No hiatal hernia. No fracture. Multilevel discogenic spurring. Mild dependent atelectasis. Resolution of the previously noted pleural effusions and bilateral parenchymal densities. 2 millimeter calcified granuloma within the left lower lobe, . Bilateral subareolar gynecomastia. Impression: Resolution of bilateral pleural effusions and adjacent parenchymal densities.
[2025-06-04] MEDS: MAGNESIUM OXIDE 400 MG TABLET PO (21:53)
[2025-06-04] MEDS: ROSUVASTATIN CALCIUM 10 MG TABLET 20 MG PO (21:53)
[2025-06-04] MEDS: METOPROLOL TARTRATE 100 MG TABLET PO (21:53)
[2025-06-05] VITALS (8 sets, daily range): BP systolic 122–153; BP diastolic 61–86; PULSE 72–85; RESP 18–20; TEMP 36.4–36.9; O2SAT 92–94
[2025-06-05] MEDS: DEXTROSE 5% IVPB ×2 (02:42→12:47)
[2025-06-05] MEDS: FUROSEMIDE IVPB ×2 (02:42→12:47)
--- NOTE | 2025-06-05 06:36 | PC.NURSE ---
Pt is alert and oriented x3. Afebrile. Pt denies pain, chest pain and N/V. Pt reports SOB with exertion. Pt is up IND voiding, and tolerating a therapeutic diet. ?
[2025-06-05 06:43] LABS: HCO3 VBG 29 mmol/L (21-28); PCO2 VBG 44 mmHG (40-50); PO2 VBG 55.5 mmHG (25-47); pH VBG 7.434 (7.32-7.43)
[2025-06-05 07:00] LABS: INR 2.33 (0.91-1.10); Prothrombin Time 26.7 Seconds
[2025-06-05 07:01] LABS: Chloride* 95 mmol/L (96-114)
[2025-06-05 07:02] LABS: Potassium* 4.3 mmol/L (3.6-5.1); Sodium* 134 mmol/L (135-149)
[2025-06-05 07:05] LABS: Anion Gap 10 mEq/L (7-15); Blood Urea Nitrogen* 16 mg/dL (7-30); Calcium* 9.3 mg/dL (8.4-10.6); Carbon Dioxide* 29 mmol/L (20-32); Creatinine* 1.0 mg/dL (0.5-1.5); Est. Creatinine Clearance* 67.02; Estimated Glomerular Filt Rate 82 ml/min; Glucose* 253 mg/dL (60-115)
[2025-06-05] MEDS: INSULIN ASPART 100 UNIT/ML 25 UNIT SUBCUT ×3 (09:28→17:45)
[2025-06-05] MEDS: INSULIN ASPART 100 UNIT/ML SUBCUT ×4 (09:28→20:31)
[2025-06-05] MEDS: AMLODIPINE 10 MG TABLET PO (09:30)
[2025-06-05] MEDS: METOPROLOL TARTRATE 100 MG TABLET PO ×2 (09:30→20:28)
[2025-06-05] MEDS: MAGNESIUM OXIDE 400 MG TABLET PO ×2 (09:30→20:27)
[2025-06-05] MEDS: METFORMIN ER 500 MG 1000 MG PO ×2 (09:30→17:41)
[2025-06-05] MEDS: POTASSIUM CHLORIDE 10 MEQ CAPSULE ER 20 MEQ PO (09:30)
[2025-06-05] MEDS: SPIRONOLACTONE 25 MG TABLET 50 MG PO (09:30)
[2025-06-05] MEDS: ASPIRIN EC 325 MG TABLET PO (09:31)
--- NOTE | 2025-06-05 11:29 | NUTR.NU ---
RDN with diet education related to heart healthy diet. Patient admitted with heart failure, on lasix. Medical history includes congestive heart failure, ascending aortic dilatation, obesity, obstructive sleep apnea, uncontrolled type 2 diabetes mellitus, cardiomyopathy hypertension, chronic kidney disease. Current weight 285lb 2oz; height 5ft 7in; BMI 44.7 kg/m2. Weight history has been stable, however he was up to about 300 lbs in March. Current diet is heart healthy. Meal intakes at 100%. RDN visited with patient whom declined diet education related to heart failure and diabetes. He reports he knows what he is supposed to do with his diet, however he refuses to stop eating cheese and red meat. He reports his diabetes is uncontrolled due to not being able to take the medication Jardiance due to expensive co-pay. He also reports he knows he needs to try to exercise more, however he has neuropathy which makes it challenging. He did not have any questions or concerns at this time. RDN encouraged patient to consider visiting with a dietitian in a clinic setting for medical nutrition therapy related to diabetes, which medicare generally covers up to 3 visits per year. No nutrition interventions at this time. RDN will continue to monitor and follow-up prn.
--- NOTE | 2025-06-05 12:18 | PC.SOCIAL ---
Addendum entered by STERLING Pérez 06/05/25 15:10: Discharge planning: youth care worker left a message for Dr. Syed's nurse to see if the pt would qualify for Chronic Care Case Management through the clinic. youth care worker will probably not hear back about this until next week being it is Sunday afternoon. Social work to follow-up as needed. Addendum entered by STERLING Pérez 06/05/25 13:13: Discharge planning: Initial Psychosocial Assessment information is as follows: Initial Psychosocial Assessment: 1.? Assessment completed with: Patient, Spouse, Child, Friend, Other: Patient. 2.? Pt lives at address and phone number on face sheet? Own home; facility , Other: Yes. Lives at the [facility] on the [facility]. The address is correct. 3.?Insurance information? on face sheet is correct? Yes. 4.?Contacts? on face sheet are correct? Yes. 5.? Does pt have a Healthcare Directive, POLST or Guardian? No. 6.? Who is the pt?s main source/sources of emotional/physical support? Brother, Bebeto. 7.? Prior to admission did pt need assistance? Yes/No No. He is pretty independent. Has issues paying for his prescription medication co-pays due to cost. 8.? Who provided and what was the assistance needed? N/A. 9.? Was Home Health being provided, by what agency? N/A. 10. Does pt use/have medical equipment at home already? What? Compression socks, but he doesn't use them. 11. Will there be a need for additional assistance at discharge and is this available in previous setting? Unknown. 12. If pt needs to go to a higher level of care, are they open to this and do they have facilities they are interested in? Most likely not. 13. How would pt plan to transport at discharge? Own vehicle or friend. 14. Is there anyone pt would like social work specialist to contact to discuss discharge plans? No. Social work to follow-up as needed. Original Note: Discharge planning: youth care worker met with patient to complete the Initial Psychosocial Assessment with geriatric social worker and to also talk about prescription drug assistance programs. Pt has two medications that he stopped taking due to co-pay costs: Jardiance and Torsemide. youth care worker suggested the pt look into [facility] to help with his prescription co-pay costs. Pt stated that he was told in the past by [facility] in [place] that [facility] does not work with people that are on Medicare. youth care worker could not find any information stating that about [facility] on the internet. Pt stated that he would look into [facility] again. Pt seemed to be very focused on federal government conspiracy theories related to prescription drug costs. Pt also stated that he is no longer a pt of [facility] because they told him he has cancer and he then found out from another specialist that he does not have cancer. Pt now sees Dr. Syed in the [place] [facility] connected to the hospital for primary care. Social work to follow-up as needed.
--- NOTE | 2025-06-05 12:43 | PM.IMPN1 ---
Assessment and Plan Assessment and plan (1) Congestive heart failure: Problem comment: Echocardiogram from April 03, 2025 shows ejection fraction of 40-45% without significant valvular disease. continue IV Lasix drip for now, spironolactone. Potassium replacement strict I&Os, daily weights lower extremity compression, elevation Status: Acute (2) Acute on chronic congestive heart failure: Problem comment: On this admission he predominantly has right-sided heart failure with generalized edema and no obvious pulmonary edema. It appears his torsemide dose on discharge in March was approximately right. Consider resuming torsemide or switching to furosemide which may need to be twice daily. Trial increasing spironolactone. Will not initiate expensive guideline therapy because he will not fill the prescriptions. Status: Acute (3) MILES (obstructive sleep apnea): Problem comment: Not using CPAP at home. He reports there is a CPAP that is been prescribed for him we waiting for him in [place] when he leaves the hospital Status: Acute (4) Uncontrolled diabetes mellitus: Problem comment: Hemoglobin A1c from 05/06/2025 is 11.9. He would benefit from Jardiance and GLP1 medication but cannot afford these. Continue to review options for getting guideline directed therapy for both heart failure and diabetes. Inpatient will titrate insulin dosing, continue metformin. Status: Acute (5) Patient cannot afford medications: Problem comment: Patient reports not being able to afford GLP 1 and SGLT to medications due to cost. I encouraged him to communicate with his primary care provider as well as other physicians if he is not taking medicines due to cost so that adjustments can be made to help manage his diseases and prevent hospitalizations. director of social work consulted Status: Chronic (6) Anticoagulation monitoring, INR range 2-3: Problem comment: For h/o R mural thrombus and & PFO. Goal 2-3. pharmacy to manage Status: Chronic (7) Mural thrombus of heart: Problem comment: -R mural thrombus and PFO. Chronic anticoagulation Goal 2-3. Status: Chronic Plan continue IV Lasix drip, spironolactone. transition to oral when appropriate. Unfortunately, at risk for recurrent hospitalizations if unable to afford most appropriate medications. Total Time Spent Total Time Spent: Today I spent 45 minutes seeing the patient, reviewing Expanse and EPIC notes/diagnostics, discussing the care plan with our care time that includes social work, PT/OT, pharmacy, RT, penitentiary and documenting my impressions and plan in the medical record. Subjective Date Seen: 06/05/25 Interval history: Patient is seen sitting up in a chair this morning. Feeling a bit better. Continues to have quite a bit of abdominal and lower extremity edema. Has been urinating quite a bit. Weight is down 2 kg since admission. Denies headache or dizziness. Denies chest pain or shortness of breath. No hypoxia. Remains afebrile. Exam Narrative: Exam Narrative: PHYSICAL EXAM General: Pleasant, conversant, NAD HEENT: Normocephalic, atraumatic, sclera white, EOMI, oral mucosa moist Cardiovascular: RRR. +2 pitting edema bilaterally Pulmonary: Mildly diminished but moving air well throughout without rhonchi or wheezes. No dyspnea On room air Abdominal: Soft, mildly distended, NTTP Neurological: Alert, answering questions appropriately, cranial nerves intact, no focal findings Extremities: No gross joint deformity or swelling. AROMI. Neurovascularly intact Skin: Warm, dry. Const: Vital Signs, click to edit/add: Vital Signs - 24 hr 06/04/25 14:40 06/04/25 15:01 06/04/25 15:03 Temperature Pulse Rate 74 73 Pulse Rate [Left P ulse Oximeter] Pulse Rate [Pulse Oximeter] 75 Respiratory Rate Blood Pressure 156/74 H Blood Pressure [Le ft Arm] Pulse Oximetry 93 92 91 [facility] 06/04/25 15:15 06/04/25 15:18 06/04/25 15:19 Temperature Pulse Rate 73 75 74 Pulse Rate [Left P ulse Oximeter] Pulse Rate [Pulse Oximeter] Respiratory Rate Blood Pressure 154/77 H Blood Pressure [Le ft Arm] Pulse Oximetry 93 94 93 Oxygen Delivery Me [facility]od 06/04/25 16:27 06/04/25 16:27 06/04/25 19:00 Temperature 98.1 F Pulse Rate Pulse Rate [Left P ulse Oximeter] 78 Pulse Rate [Pulse Oximeter] Respiratory Rate 26 H 20 20 Blood Pressure Blood Pressure [Le ft Arm] 147/71 H 141/73 H Pulse Oximetry 94 93 92 [facility] Room Air Room Air 06/04/25 23:19 06/04/25 23:19 06/04/25 23:19 Temperature 97.8 F Pulse Rate Pulse Rate [Left P ulse Oximeter] 81 Pulse Rate [Pulse Oximeter] Respiratory Rate 20 20 20 Blood Pressure Blood Pressure [Le ft Arm] 143/69 H Pulse Oximetry 96 93 Oxygen Delivery Me thod Room Air Room Air 06/05/25 01:30 06/05/25 01:40 06/05/25 07:00 Temperature 97.5 F L 98.4 F Pulse Rate 73 Pulse Rate [Left P ulse Oximeter] 72 78 Pulse Rate [Pulse Oximeter] Respiratory Rate 20 18 Blood Pressure Blood Pressure [Le ft Arm] 134/67 145/86 H Pulse Oximetry 92 92 Oxygen Delivery Id [facility] Room Air Room Air 06/05/25 07:45 06/05/25 07:45 Temperature Pulse Rate 73 Pulse Rate [Left P ulse Oximeter] Pulse Rate [Pulse Oximeter] Respiratory Rate Blood Pressure Blood Pressure [Le ft Arm] Pulse Oximetry 92 Oxygen Delivery Id thod Room Air Labs Labs: Laboratory Results - last 24 hr 06/04/25 06/05/25 13:40 06:30 WBC 7.70 RBC 5.09 Hgb 14.6 Hct 42.8 MCV 84 MCH 29 MCHC 34 RDW Coeff of Yunior 14.6 Plt Count 161 Neut % (Auto) 70.6 Lymph % (Auto) 12.6 L [place] % (Auto) 12.9 H Eos % (Auto) 2.6 Baso % (Auto) 0.8 Neut # (Auto) 5.44 Lymph # (Auto) 1.00 [place] # (Auto) 1.00 H Eos # (Auto) 0.20 Baso # (Auto) 0.06 Abs Immat Gran (auto) 0.04 Imm/Tot Granulo (auto) 0.5 INR 2.20 H 2.33 H VBG pH 7.434 H VBG pCO2 44 VBG pO2 55.5 H VBG HCO3 29 H Sodium 136 134 L Potassium 4.2 4.3 Chloride 101 95 L Carbon Dioxide 24 29 Anion Gap 11 10 BUN 15 16 Creatinine 0.9 1.0 Estimated Creat Clear 67.02 67.02 Estimated GFR 94 82 Glucose 266 H 253 H Calcium 9.4 9.3 Magnesium 1.8 1.7 Total Bilirubin 0.6 AST 49 H ALT 44 Alkaline Phosphatase 73 NT-Pro-B Natriuret Pep 99 Total Protein 7.2 Albumin 4.2
[2025-06-05] MEDS: FUROSEMIDE 10 MG/ML inj 80 MG IVP (15:21)
--- NOTE | 2025-06-05 15:36 | REH.OT ---
OT: Order received for use of edema wear for BLE edema. OT met with patient who reports he used at last admit and did not continue use, declines use. Patient had complaints about positioning in current recliner and reports he will not lie in bed due to sleeps in recliner at home and does not want to lie in bed. Patient did agree to trial recliner with lift to aid in positioning for elevating LEs with tilt option to elevate above heart level. Patient will elevate, but reports not that high. Patient instructed to elevate LEs, complete ankle pumps and walk more frequently. He is getting up to bathroom frequently during diuresing and is up independently in room. No charge. Recommend order for outpatient OT lymphedema at discharge. Patient may be good candidate for velcro wrap compression garments.
[2025-06-05] MEDS: WARFARIN 5 MG TABLET PO (17:41)
[2025-06-05] MEDS: ROSUVASTATIN CALCIUM 10 MG TABLET 20 MG PO (20:28)
[2025-06-05] MEDS: SODIUM CHLORIDE 0.9 % (FLUSH) 10 ML SYRINGE 5 ML IVF (20:35)
[2025-06-06] VITALS (11 sets, daily range): BP systolic 116–156; BP diastolic 63–71; PULSE 74–87; RESP 16–24; TEMP 36.7–36.9; O2SAT 90–94
[2025-06-06 06:09] LABS: HCO3 VBG 30 mmol/L (21-28); PCO2 VBG 49 mmHG (40-50); PO2 VBG 53.9 mmHG (25-47); pH VBG 7.401 (7.32-7.43)
[2025-06-06 06:26] LABS: INR 2.23 (0.91-1.10); Prothrombin Time 25.8 Seconds
[2025-06-06 06:28] LABS: Chloride* 96 mmol/L (96-114); Sodium* 132 mmol/L (135-149)
[2025-06-06 06:29] LABS: Potassium* 4.0 mmol/L (3.6-5.1)
[2025-06-06 06:31] LABS: Blood Urea Nitrogen* 25 mg/dL (7-30); Creatinine* 1.0 mg/dL (0.5-1.5); Est. Creatinine Clearance* 67.02; Estimated Glomerular Filt Rate 82 ml/min
[2025-06-06 06:32] LABS: Anion Gap 7 mEq/L (7-15); Calcium* 8.7 mg/dL (8.4-10.6); Carbon Dioxide* 29 mmol/L (20-32); Glucose* 203 mg/dL (60-115)
[2025-06-06] MEDS: METFORMIN ER 500 MG 1000 MG PO ×2 (07:45→17:44)
[2025-06-06] MEDS: INSULIN ASPART 100 UNIT/ML 25 UNIT SUBCUT ×3 (07:45→17:42)
[2025-06-06] MEDS: POTASSIUM CHLORIDE 10 MEQ CAPSULE ER 20 MEQ PO (07:45)
[2025-06-06] MEDS: INSULIN ASPART 100 UNIT/ML SUBCUT ×4 (07:46→20:45)
--- NOTE | 2025-06-06 07:50 | PC.NURSE ---
Shift note ([id number]): Patient pleasant, alert and oriented. Ambulated independently in room. Denied pain.?
[2025-06-06] MEDS: SPIRONOLACTONE 25 MG TABLET 50 MG PO (08:40)
[2025-06-06] MEDS: ASPIRIN EC 325 MG TABLET PO (08:40)
[2025-06-06] MEDS: FUROSEMIDE 10 MG/ML inj 80 MG IVP ×2 (08:40→16:44)
[2025-06-06] MEDS: SODIUM CHLORIDE 0.9 % (FLUSH) 10 ML SYRINGE 5 ML IVF ×2 (08:41→20:31)
[2025-06-06] MEDS: METOPROLOL TARTRATE 100 MG TABLET PO ×2 (08:41→20:30)
[2025-06-06] MEDS: MAGNESIUM OXIDE 400 MG TABLET PO ×2 (08:41→20:29)
[2025-06-06] MEDS: AMLODIPINE 10 MG TABLET PO (08:41)
--- NOTE | 2025-06-06 10:23 | P.IMPN_ITS ---
Assessment and Plan Assessment and plan (1) Acute on chronic congestive heart failure: Problem comment: - 06/04: On this admission he predominantly has right-sided heart failure with generalized edema and no obvious pulmonary edema. It appears his torsemide dose on discharge in March was approximately right. Consider resuming torsemide or switching to furosemide which may need to be twice daily. Trial increasing spironolactone. Will not initiate expensive guideline therapy because he will not fill the prescriptions. - Echocardiogram from April 03, 2025 shows ejection fraction of 40-45% without significant valvular disease. - strict I&Os, daily weights, lower extremity compression, elevation - Was initially on lasix drip that was transitioned to lasix 80mg IV BID yesterday. Spironolactone was doubled on admission. - 06/06 Wt today is unchanged from yesterday, UO 1300 over 24 hours. Cr stable. Increase frequency of lasix to q8h. SW gave resources yesterday. Status: Acute (2) MILES (obstructive sleep apnea): Problem comment: Not using CPAP at home. He reports there is a CPAP that is been prescribed for him we waiting for him in [place] when he leaves the hospital Status: Chronic (3) Uncontrolled diabetes mellitus: Problem comment: Hemoglobin A1c from 05/06/2025 is 11.9. He would benefit from Jardiance and GLP1 medication but cannot afford these. Continue to review options for getting guideline directed therapy for both heart failure and diabetes. Inpatient will titrate insulin dosing, continue metformin. - 06/06 POC glucoses 160-250s. Increase glargine to 60u BID (up from 55u BID) Status: Acute (4) Patient cannot afford medications: Problem comment: Patient reports not being able to afford GLP 1 and SGLT to medications due to cost. I encouraged him to communicate with his primary care provider as well as other physicians if he is not taking medicines due to cost so that adjustments can be made to help manage his diseases and prevent hospitalizations. 7th grade social studies teacher consulted - 06/06 Nurse called [facility] today to clarify pricing and was told that the gaston difference is explained by he was filling a 3 months supply instead of a 1 month supply. Status: Chronic (5) Anticoagulation monitoring, INR range 2-3: Problem comment: For h/o R mural thrombus and & PFO. Goal 2-3. pharmacy to manage Status: Chronic (6) Mural thrombus of heart: Problem comment: -R mural thrombus and PFO. Chronic anticoagulation Goal 2-3. Status: Chronic Plan continue IV Lasix drip, spironolactone. transition to oral when appropriate. Unfortunately, at risk for recurrent hospitalizations if unable to afford most appropriate medications. Total Time Spent Total Time Spent: Today I spent 40 minutes seeing the patient, reviewing Expanse and EPIC notes/diagnostics, discussing the care plan with our care time that includes social work, PT/OT, pharmacy, RT, group home and documenting my impressions and plan in the medical record. Subjective Time Seen by Provider: 08:07 Date Seen: 06/06/25 Interval history: Deniz says he feels better overall, less SOB. He tells me that he tried to refill his torsemide a month ago, but the gaston had increased by 600%, and he was told by [facility] pharmacy to contact his insurance company about it. He says he just hadn't gotten around to it yet. He does not want to switch to furosemide. He says he will contact his insurance company on Sunday. He says he has tried to apply for assistance with his medications with [facility] and several other places, but keeps getting turned down for assistance. He has as the Jardiance has just been too costly for him to try to fill, at 300 dollars per month. He states that he has a new CPAP ready for him to bead picker in out on hand he was planning to do that soon because he is only able to use is current CPAP for about an hour at a time due to issues with a humidifier. Exam Narrative: Exam Narrative: General: No acute distress. Awake, alert, oriented x3. Sitting in the bedside chair. No pallor. No jaundice. Oropharynx: Clear. Mucous membranes moist. Cardiovascular: Regular rate and rhythm. No murmurs, gallops, or rubs. Respiratory: No respiratory distress, talking in complete sentences. Breath sounds diminished, no wheezes or crackles. Abdomen: Bowel sounds present. Soft, nondistended, nontender. Extremities: 2+ bilateral lower extremity pitting edema. Const: Vital Signs, click to edit/add: Vital Signs - 24 hr 06/05/25 11:00 06/05/25 15:00 06/05/25 15:00 Temperature 98.0 F Pulse Rate Pulse Rate [Left P ulse Oximeter] 75 76 Respiratory Rate 18 20 Blood Pressure [Le ft Arm] 140/70 H 131/70 Pulse Oximetry 92 93 93 Oxygen Delivery [facility] Room Air Room Air Room Air 06/05/25 15:00 06/05/25 19:21 06/05/25 22:31 Temperature 98.0 F Pulse Rate 75 Pulse Rate [Left P ulse Oximeter] 78 Respiratory Rate 20 Blood Pressure [Le ft Arm] 122/61 Pulse Oximetry 94 93 Oxygen Delivery [facility] Room Air Room Air 06/05/25 22:31 06/06/25 00:12 06/06/25 02:31 Temperature 97.8 F 98.2 F Pulse Rate 78 Pulse Rate [Left P ulse Oximeter] 85 80 Respiratory Rate 19 17 Blood Pressure [Le ft Arm] 153/69 H 116/63 Pulse Oximetry 93 94 [facility] 06/06/25 07:55 06/06/25 07:56 06/06/25 09:05 Temperature 98.1 F Pulse Rate 87 Pulse Rate [Left P ulse Oximeter] 76 Respiratory Rate 24 24 Blood Pressure [Le ft Arm] 131/71 Pulse Oximetry 92 92 Oxygen Delivery [facility] Room Air Room Air Labs Labs: Laboratory Results - last 24 hr 06/06/25 05:43 INR 2.23 H VBG pH 7.401 VBG pCO2 49 VBG pO2 53.9 H VBG HCO3 30 H Sodium 132 L Potassium 4.0 Chloride 96 Carbon Dioxide 29 Anion Gap 7 BUN 25 Creatinine 1.0 Estimated Creat Clear 67.02 Estimated GFR 82 Glucose 203 H Calcium 8.7 Magnesium 1.8
--- NOTE | 2025-06-06 13:55 | PC.NURSE ---
[employer] Shift Manager called [facility] pharmacy at request of Dr. Brenner to discuss with pharmacy the cost of patient's torsemide. [employer] Shift Manager spoke with compounding pharmacy technician who accessed patient records. Torsemide 30 day supply for patient on first few fills of medication was $6.90, the last fill of this prescription was $42.00 for a 3 month supply of torsemide per compounding pharmacy technician. [employer] Shift Manager updated Dr. Brenner and primary nurse regarding.
[2025-06-06] MEDS: WARFARIN 3 MG TABLET 6 MG PO (16:44)
--- NOTE | 2025-06-06 18:51 | PC.NURSE ---
End of shift-- Very pleasant and cooperative, alert and oriented patient. VSS and pt is afebrile. SPO2 maintained >90% on RA. He denied any pain. LS CTA. Telemetry shows NSR with 1st degree AV block. 1+ pitting edema in bilateral LE. Pt given IVP lasix for diureses per MD order. Voiding adequate amounts. He denied nausea and ate 100% of 3 regular meals today without difficulty. He stated a regular BM this afternoon. He showered this afternoon and ambulated in hallway independently and tolerated it well. BG 149-281 today and pt was given insulin per ss. Report to oncoming shift.
[2025-06-06] MEDS: ROSUVASTATIN CALCIUM 10 MG TABLET 20 MG PO (20:29)
[2025-06-07 00:18] VITALS: BP 130/60; PULSE 72; RESP 20; TEMP 36.6; O2SAT 91
[2025-06-07] MEDS: FUROSEMIDE 10 MG/ML inj 80 MG IVP ×3 (00:31→16:28)
[2025-06-07 03:49] VITALS: BP 133/58; PULSE 72; RESP 20; TEMP 36.5; O2SAT 93
--- NOTE | 2025-06-07 06:45 | PC.NURSE ---
Shift note ([id number]): Patient pleasant, alert and oriented. Ambulated independently in room. Good urine output this shift. Denied pain.?
[2025-06-07 06:51] LABS: HCO3 VBG 30 mmol/L (21-28); PCO2 VBG 49 mmHG (40-50); PO2 VBG 47.0 mmHG (25-47); pH VBG 7.402 (7.32-7.43)
[2025-06-07 07:00] VITALS: PULSE 66; O2SAT 92
[2025-06-07 07:19] LABS: Chloride* 96 mmol/L (96-114); Potassium* 4.1 mmol/L (3.6-5.1); Sodium* 135 mmol/L (135-149)
[2025-06-07 07:22] LABS: Anion Gap 9 mEq/L (7-15); Blood Urea Nitrogen* 28 mg/dL (7-30); Calcium* 8.8 mg/dL (8.4-10.6); Carbon Dioxide* 30 mmol/L (20-32); Creatinine* 1.0 mg/dL (0.5-1.5); Est. Creatinine Clearance* 67.02; Estimated Glomerular Filt Rate 82 ml/min; Glucose* 215 mg/dL (60-115)
[2025-06-07 07:28] LABS: INR 2.20 (0.91-1.10); Prothrombin Time 25.6 Seconds
[2025-06-07 09:24] VITALS: BP 144/70; PULSE 82; RESP 18; TEMP 36.8; O2SAT 92
[2025-06-07] MEDS: POTASSIUM CHLORIDE 10 MEQ CAPSULE ER 20 MEQ PO (09:25)
[2025-06-07] MEDS: MAGNESIUM OXIDE 400 MG TABLET PO (09:26)
[2025-06-07] MEDS: ASPIRIN EC 325 MG TABLET PO (09:26)
[2025-06-07] MEDS: METOPROLOL TARTRATE 100 MG TABLET PO (09:26)
[2025-06-07] MEDS: SPIRONOLACTONE 25 MG TABLET 50 MG PO (09:26)
[2025-06-07] MEDS: AMLODIPINE 10 MG TABLET PO (09:26)
[2025-06-07] MEDS: SODIUM CHLORIDE 0.9 % (FLUSH) 10 ML SYRINGE 5 ML IVF (09:27)
[2025-06-07] MEDS: INSULIN ASPART 100 UNIT/ML 25 UNIT SUBCUT ×2 (09:29→12:08)
[2025-06-07] MEDS: INSULIN ASPART 100 UNIT/ML SUBCUT ×2 (09:30→12:08)
[2025-06-07] MEDS: METFORMIN ER 500 MG 1000 MG PO (09:36)
--- NOTE | 2025-06-07 10:23 | PM.DS1 ---
DS: Providers Provider Time Seen by Provider: 07:59 Date Seen: 06/07/25 Date of admission: 06/05/25 12:51 Primary care physician: Chen Syed MD Admitting Clinician: Dayton Stevens MD Consults: 06/04/25 16:25 Consult to Occupational Therapy [CONS] Routine Comment: Reason(s) for OT Consult:: Evaluate and Treat Any Restrictions?:: No Restrictions Comment: edema wear Attending Physician on discharge: Tyra Brenner MD Date of Discharge: 06/07/25 DS: Diagnosis Discharge Diagnosis (1) Acute on chronic congestive heart failure: Status: Acute Problem details: - 06/04: On this admission he predominantly has right-sided heart failure with generalized edema and no obvious pulmonary edema. It appears his torsemide dose on discharge in March was approximately right. Consider resuming torsemide or switching to furosemide which may need to be twice daily. Trial increasing spironolactone. Will not initiate expensive guideline therapy because he will not fill the prescriptions. - Echocardiogram from April 03, 2025 shows ejection fraction of 40-45% without significant valvular disease. - strict I&Os, daily weights, lower extremity compression, elevation - Was initially on lasix drip that was transitioned to lasix 80mg IV BID yesterday. Spironolactone was doubled on admission. - 06/06 Wt today is unchanged from yesterday, UO 1300 over 24 hours. Cr stable. Increase frequency of lasix to q8h. gave resources yesterday. - 06/07 Wt down 1 kg today, which is down 3 kg overall from admission. LE edema improving. Verified with patient this morning that he would like to continue taking torsemide as outpatient (instead of furosemide) and that he is willing to pay copay. I spoke with him about our conversation with [facility] pharmacy yesterday regarding that he will be paying for a 3 month supply, hence the higher up front cost, and he demonstrated understanding and was agreeable to this. He feels back to baseline today. I will have him follow-up with his primary care provider later this week. (2) MILES (obstructive sleep apnea): Status: Chronic Problem details: Not using CPAP at home. He reports there is a CPAP that is been prescribed for him we waiting for him in [place] when he leaves the hospital - 06/07 I encouraged him to go pick that up and start using it as soon as possible (3) Uncontrolled diabetes mellitus: Status: Acute Problem details: Hemoglobin A1c from 05/06/2025 is 11.9. He would benefit from Jardiance and GLP1 medication but cannot afford these. Continue to review options for getting guideline directed therapy for both heart failure and diabetes. Inpatient will titrate insulin dosing, continue metformin. - 06/06 POC glucoses 160-250s. Increase glargine to 60u BID (up from 55u BID) - 06/07 POC glucoses 250-280s. Increased glargine yesterday. Will send him home on this higher dose and have him f/u with PCP this week. (4) Patient cannot afford medications: Status: Chronic Problem details: Patient reports not being able to afford GLP 1 and SGLT to medications due to cost. I encouraged him to communicate with his primary care provider as well as other physicians if he is not taking medicines due to cost so that adjustments can be made to help manage his diseases and prevent hospitalizations. social work lecturer consulted - 06/06 Nurse called [facility] today to clarify pricing and was told that the gaston difference is explained by he was filling a 3 months supply instead of a 1 month supply. - 06/07 SW saw patient on 06/05 and left message for PCP's nurse to see if patient will qualify for Chronic Care Case Managment through clinic. (5) Anticoagulation monitoring, INR range 2-3: Status: Chronic Problem details: For h/o R mural thrombus and & PFO. Goal 2-3. pharmacy to manage - 06/07 INR as outpatient on Sunday (6) Mural thrombus of heart: Status: Chronic Problem details: -R mural thrombus and PFO. Chronic anticoagulation Goal 2-3. (7) CKD (chronic kidney disease) stage 2, GFR 60-89 ml/min: Status: Chronic Problem details: Baseline Cr is about 1. - 06/07 Cr stable. DS: Summary Hospital Course Hospital Course: Per H&P: Juma South is a 69 year old male admitted to the hospital with progressive symptoms of heart failure for months. Patient reports that he is felt exertional dyspnea and had significant edema and weight gain developing over the last several months. He was seen by the supply chain systems manager in clinic today who referred him to the hospital for diuresis. He is not having any chest pain. In reviewing his records I see his weight in November 2024 was about 125 kg. At that time he was hospitalized with MRSA bacteremia/UTI/prostatic abscess and had a prolonged outpatient course of IV and oral antibiotics. He is admitted to the hospital in March for heart failure at a weight of 140 kg. He was diuresed down to 136 kg. During that hospital stay he was started on spironolactone, Jardiance and torsemide. He continued on the spironolactone, did not get the Jardiance due to cost and did take the torsemide for 1 month but then the cost went up and so he did not get a refill. At the end of April his weight was 130.6 kg, down about 5.4 kg from March admission. He has had no torsemide or loop diuretic in the past month. His current weight is 131.5 kg. He reports not having any chest pain. No dyspnea at rest but worsening dyspnea with exertion. Worsening edema. No fever. 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 Weight, dyspnea, and edema have improved. Discharge weight is 128.8kg, down from admission weight of 131.5kg and lower than his weight at the end of April, 130.6 kg. As above, he was seen by social work regarding medication noncompliance and cost of medications who left a message for the his primary care provider's nurse regarding his possible eligibility for clinical care case management through the clinic and we verified with [facility] the pricing of his torsemide and that the increase in [place] was mainly due to the fact that he was picking up a 3 month supply instead about 1 month supply. This information was relayed to the patient and he is agreeable to pay for the torsemide refill and understanding that not taking his torsemide may lead to readmission. He is discharged home today in improved and stable condition and is agreeable to pay for and flower buncher or picker torsemide and take it as prescribed. I have also increased his spironolactone. While I recommended that patient start Jardiance, he states that this remains cost prohibitive for him, possibly until the beginning of next year if the gaston has come down. Time Spent with Patient Time attestation: Total time spent providing and/or coordinating discharge services: Exam Narrative: Exam Narrative: General: No acute distress. Awake, alert, oriented x3. Sitting in the bedside chair. No pallor. No jaundice. Oropharynx: Clear. Mucous membranes moist. Cardiovascular: Regular rate and rhythm. No murmurs, gallops, or rubs. Respiratory: No respiratory distress, talking in complete sentences. Breath sounds diminished, no wheezes or crackles. Abdomen: Bowel sounds present. Soft, nondistended, nontender. Extremities: 1-2+ bilateral lower extremity pitting edema. Const: Vital Signs, click to edit/add: Vital Signs - 24 hr 06/06/25 11:24 06/06/25 15:00 06/06/25 15:00 Temperature 98.0 F 98.0 F Pulse Rate Pulse Rate [Left P ulse Oximeter] 74 80 Respiratory Rate 18 20 20 Blood Pressure [Le ft Arm] 118/63 129/63 Pulse Oximetry 91 90 90 Oxygen Delivery Tn thod Room Air Room Air Room Air 06/06/25 15:00 06/06/25 15:25 06/06/25 19:29 Temperature 98.4 F Pulse Rate 81 Pulse Rate [Left P ulse Oximeter] 80 75 Respiratory Rate 20 16 Blood Pressure [Le ft Arm] 156/63 H Pulse Oximetry 93 Oxygen Delivery Tn thod Room Air 06/06/25 21:46 06/07/25 00:18 06/07/25 00:18 Temperature 97.8 F Pulse Rate 85 Pulse Rate [Left P ulse Oximeter] 72 Respiratory Rate 20 Blood Pressure [Le ft Arm] 130/60 Pulse Oximetry 91 Oxygen Delivery Tn thod Room Air Room Air 06/07/25 03:49 06/07/25 07:00 06/07/25 07:00 Temperature 97.7 F Pulse Rate 66 Pulse Rate [Left P ulse Oximeter] 72 Respiratory Rate 20 Blood Pressure [Le ft Arm] 133/58 L Pulse Oximetry 93 92 Oxygen Delivery Tn thod Room Air Room Air 06/07/25 09:24 Temperature 98.2 F Pulse Rate Pulse Rate [Left P ulse Oximeter] 82 Respiratory Rate 18 Blood Pressure [Le ft Arm] 144/70 H Pulse Oximetry 92 Oxygen Delivery Tn thod Room Air DS: Data Data Completed and Pending Completed studies during hospitalization: 06/04/2025 EKG: Sinus rhythm with first-degree AV block, 76 beats per minute, left anterior fascicular block, cannot rule out anterior infarct, age undetermined. Ordering Physician: Alejandro Nesbitt M.D. Date of Service: 06/04/25 Procedure(s): XR chest 2V Accession Number(s): [id number] cc: Chen Syed M.D.; Alejandro Nesbitt M.D.~ For Patients: As a result of the Cures Act, medical imaging exams and procedure reports are released immediately into your electronic medical record. You may view this report before your referring provider. If you have questions, please contact your health care provider. INDICATION: Shortness of breath TECHNIQUE: Two view chest. FINDINGS: The lungs are clear. The heart, mediastinum and pulmonary vessels are of normal size. There is no evidence of pleural disease. IMPRESSION: Negative chest. Dictated by Pallavi Foreman MD @ 06/04/2025 1:49:01 PM (Electronically Signed) Labs on day of discharge: Labs from last 24 hours 06/07/25 06:05 INR 2.20 H VBG pH 7.402 VBG pCO2 49 VBG pO2 47.0 VBG HCO3 30 H Sodium 135 Potassium 4.1 Chloride 96 Carbon Dioxide 30 Anion Gap 9 BUN 28 Creatinine 1.0 Estimated Creat Clear 67.02 Estimated GFR 82 Glucose 215 H Calcium 8.8 Magnesium 1.9 Discharge Plan Discharge Disposition: Home, Self-Care Date of Admission: 06/05/25 12:51 Attending Provider on Discharge: Tyra Brenner Primary Care Provider: Chen Syed Condition: Improved Anticipated Discharge Date/Time: 06/07/25 10:41 Discharge Medications: New spironolactone 25 mg Tablet 50 mg PO DAILY Qty: 60 0RF Continued (DME) Dexcom G7 Sensor Device See Rx Instructions .Route Qty: 3 3RF Rx Instructions: As directed insulin aspart U-100 [Novolog FlexPen U-100 Insulin] 100 unit/mL (3 mL) insulin pen 25 unit subcut TIDWMEAL Qty: 27 2RF torsemide 20 mg tablet 40 mg PO DAILY@0800 Qty: 180 0RF Patient Comments: has not taken for a month some confusion about copay omega 6-fms-jet-fish oil [Fish Oil] 1,000 (120-180) mg capsule 1 cap PO DAILY multivitamin [Daily Multi-Vitamin] Tablet 1 tab PO DAILY amlodipine 10 mg tablet 10 mg PO DAILY lisinopril 40 mg tablet 40 mg PO DAILY Jardiance 10 mg Tablet 10 mg PO DAILY Qty: 30 0RF warfarin 5 mg tablet 5 - 10 mg PO DAILY Protocol: Dose Management Condition: Sunday Dose/Route: 5 mg Instruction: 1 x 5 mg tablet Condition: Sunday Dose/Route: 10 mg Instruction: 2 x 5 mg tablets Condition: Sunday Dose/Route: 5 mg Instruction: 1 x 5 mg tablet Condition: Sunday Dose/Route: 5 mg Instruction: 1 x 5 mg tablet Condition: Dose/Route: 10 mg Instruction: 2 x 5 mg tablets Condition: Sunday Dose/Route: 5 mg Instruction: 1 x 5 mg tablet Condition: Sunday Dose/Route: 5 mg Instruction: 1 x 5 mg tablet Protocol Text: Adjustment Start Date: 05/28/25 INR Value: 3.5 INR Date: 05/28/25 Recheck Date: 06/11/25 Patient Comments: 10 MG (5 MG TAB X 2) ON SUNDAY AND SUNDAY, 5 MG (1 TAB) ALL OTHER DAYS aspirin 325 mg tablet 325 mg PO DAILY rosuvastatin 20 mg tablet 20 mg PO QPM Qty: 90 3RF metformin 500 mg tablet extended release 24 hr 1,000 mg PO BID Qty: 360 0RF metoprolol tartrate 100 mg tablet 100 mg PO BID Qty: 180 0RF Changed insulin glargine [Lantus Solostar U-100 Insulin] 100 unit/mL (3 mL) insulin pen 60 unit subcut BID Qty: 15 12RF Discontinued spironolactone 25 mg tablet 25 mg PO DAILY Qty: 90 3RF Discharge Orders: Discharge Order (Routine); Ordered 06/07/25 Ordered By: Tyra Brenner Additional Instructions: Weigh yourself every morning on the same scale when you get up, after use the bathroom, before you eat. Wear similar clothing each time you weigh yourself. Keep track of your weight. Call your doctor if you gain more than 2 pounds in a day, or 5 pounds in a week. Activity Level: No Restrictions Discharge Diet: Heart Healthy (2 gm sodium, low fat) Follow Up Appointments: Chen Syed MD [Primary Care Provider, Family Practice] Referral Note: Sunday, BMP, INR Forms: Patient Belongings, MyHealth Info Instructions
[2025-06-07 11:00] VITALS: BP 156/65; PULSE 84; RESP 20; TEMP 36.8; O2SAT 92
--- NOTE | 2025-06-07 14:30 | PC.NURSE ---
Pt doing well today. VSS. Denies pain. SOB is improving. Independent in room, tolerating activity well. Pt is eager to discharge this afternoon.
[2025-06-07 15:00] VITALS: BP 124/66; PULSE 70; PULSE 74; RESP 16; TEMP 36.6; O2SAT 94
[2025-06-07] MEDS: WARFARIN 5 MG TABLET PO (16:28)
== END 2025-06-07 17:00 | disposition home or self-care (01) | DRG 291 ==
LOC: ED 13:50 → MEDSURG 16:19
PROVIDERS: Admitting Provider Family Medicine; Emergency Provider Student in an Organized Health Care Education/Training Program; PCP Family Medicine; Visit Provider Family Medicine
DX: I13.0 Hypertensive heart and chronic kidney disease with heart failure and stage 1 through stage 4 chronic kidney disease, or unspecified chronic kidney disease (principal); I50.23 Acute on chronic systolic (congestive) heart failure; Q21.12 Patent foramen ovale; Z68.41 Body mass index [BMI] 40.0-44.9, adult; Z59.19 Other inadequate housing; Z91.141 Patient's other noncompliance with medication regimen due to financial hardship; Z59.89 Other problems related to housing and economic circumstances; Z59.71 Insufficient health insurance coverage; I50.813 Acute on chronic right heart failure; E11.65 Type 2 diabetes mellitus with hyperglycemia; E11.22 Type 2 diabetes mellitus with diabetic chronic kidney disease; N18.2 Chronic kidney disease, stage 2 (mild); G47.33 Obstructive sleep apnea (adult) (pediatric); Z79.82 Long term (current) use of aspirin; Z79.4 Long term (current) use of insulin; Z79.01 Long term (current) use of anticoagulants; I77.810 Thoracic aortic ectasia; E66.9 Obesity, unspecified; I51.3 Intracardiac thrombosis, not elsewhere classified; N40.1 Benign prostatic hyperplasia with lower urinary tract symptoms; Z79.84 Long term (current) use of oral hypoglycemic drugs
CPT/HCPCS: 36415; 71046; 80048; 80053; 82803; 82962; 83735; 83880; 85025; 85610; 93005; 99283; A9270; G0378; J1815; J1938

== ENCOUNTER 2025-07-08 21:09 | Observation (INO) | payer MEDICARE, SELFPAY ==
--- OUTSIDE RECORDS SUMMARY | 2025-07-08 21:12 | XMS_ITS | Clinical Summary ---
Author Organization [employer] [facility] Address [address] [place] [id number] Care Team Providers Care Hook And Eye Attacher Name Role Phone Romeo Mendez MD Primary Care Provider Allergies Active Allergy Reactions Criticality Noted Date Comments Iodine Hives 10/08/2019 Medications Lphai-6-OLS-EPA-Fi sh Oil 1,000 mg (120 mg-180 mg) [...] be used to read blood sugars, follow employee relations administrator directions. 9 Each 3 06/21/20 23 Active Dexcom G7 Contract Serviceman for continuous blood glucose monitor (CGM)Indications:U ncontrolled type 2 diabetes mellitus with hyperglycemia (HC) To be used to read blood sugars follow employee relations administrator directions. 1 Each 06/21/20 23 Active acetaminophen (TYLENOL EXTRA STRGTH) 500 mg tablet Take 500-1,000 mg by mouth every 6 hours if needed for Pain. Max acetaminophen dose: 4000mg in 24 hrs. 0 07/19/20 23 Active liraglutide (VICTOZA) 0.6 mg/0.1 mL (18 mg/3 mL) subcutaneous pen Inject 1.8 mg subcutaneous once daily. 36 mL 4 11:42 AM GUMMED TAPE PRESS OPERATOR 10/25/19 24 Active Insulin Rocky Comfort, Disposable, (Novofine 32) 32 gauge x 1/4 To be used once daily with Victoza 200 Each 2 4 11:42 AM GUMMED TAPE PRESS OPERATOR 10/25/19 24 Active ferrous sulfate 325 mg [...] Encounters Date Type Department Care Team Description 06/04/2025 10:00 AM CDT Office Visit [facility] [address] [place] [address] Robi Mcduffie MD 06/04/2025 Telephone [facility] - [address] [place] [address] Glen Forbes MD CV Heart Failure Est from Last 3 Months Immunizations Immunization Administration [...] Sign Reading Time Taken Comments Blood Pressure 151/64 06/09/2025 11:20 AM CDT Pulse 79 06/09/2025 11:19 AM CDT Temperature 36.4 C (97.5 F) 03/05/2024 11:02 AM CDT Respiratory Rate 22 01/05/2025 10:33 AM CDT Oxygen Saturation 95% 06/09/2025 11:19 AM CDT Inhaled Oxygen Concentration - - Weight 132.6 kg (292 lb 6 oz) 06/09/2025 11:19 A M CDT Height 171.5 cm (5' 7.5) 06/09/2025 11:19 AM CD T Body Mass Index 45.12 06/09/2025 11:19 AM CDT Plan of Treatment Health Maintenance Due Date Last Done Comments RSV vaccine for adults or (1 - Risk 60-74 years 1-dose series) 2017 Colonoscopy through age 75 12/31/2020 12/31/2017, Medicare Wellness for age 65+ 04/23/2024 04/23/2023 Depression screening for age 12+ 04/27/2024 04/27/2023, 04/24/2023, 04/23/2023, Additional history exists Influenza Vaccine (#1) 2025 , 07/03/2022, 07/04/2021, Additional history exists BMI (ht and wt on same day) for age 18+ 06/04/2026 06/04/2025, 01/14/2024, 04/23/2023, Additional history exists Tetanus booster 03/19/2027 03/19/2017, [...] Procedure Name Priority Date/Time Associated Diagnosis Comments LIPID PANEL W REFLEX MEASURED LDL Routine 06/19/2023 11:13 AM CDT Hyperlipidemia, unspecified hyperlipidemia type ANTI HCV Routine 02/27/2020 2:02 PM CDT Encounter for hepatitis C screening test for low risk patient SCAN-COLONOSCOPY 12/31/2017 12:0 0 AM CDT from Last 3 Months or Most Recently Relevant to Health Maintenance Results * (ABNORMAL) LIPID PANEL W REFLEX MEASURED LDL (06/19/2023 11:13 AM CDT) CHOLESTEROL,TOTAL 159 100 - 199 mg/dL 06/20/2023 7:00 AM CDT [facility] Comment: Cholesterol, Total Reference Ranges Desirable <200 mg/dL Borderline 200-239 mg/dL High >=240 mg/dL TRIGLYCERIDES 530(H) <150 mg/dL 06/20/2023 7:00 AM CDT [facility] HDL CHOLESTEROL 30(L) >40 mg/dL 3 7:00 AM CDT [facility] NON-HDL CHOLESTEROL 129 <145 mg/dl 06/20/2023 7:00 AM CDT [facility] CHOL/HDL RATIO 5.30(H) <4.50 06/20/2023 7:00 AM CDT [facility] LDL CHOLESTEROL 3 7:00 AM CDT [facility] Comment:Invalid LDL when Tri g >400. VLDL CHOLESTEROL COMMENT 06/20/2023 7:00 AM CDT [facility] Comment:Unable to calculate VLDL. PROVIDER ORDERED STATUS RANDOM 06/20/2023 7:00 AM CDT [facility] Blood BLOOD SPECIMEN / Unknown Venipuncture / Unknown 06/19/2023 11:13 AM CDT 06/19/2023 11:15 AM CDT us Opal Richards DO CHEMISTRY Final Resu lt [facility] [address] [place] [address], [place] * ANTI HCV (02/27/2020 2:02 PM CDT) HEPATITIS C ANTIBODY Non-React gennaro Non-React gennaro 02/27/2020 8:36 PM CDT [facility] Comment:Antibodies to HCV no t detected; does not exclude the possibility of exposure to HCV. Blood BLOOD SPECIMEN / Unknown Butterfly / Unknown 02/27/2020 2:02 PM CDT 02/27/2020 2:03 PM CDT us Radha Prieto MD SEND OUTS Final Resul t [facility] [address] [place] [address], [place] * SCAN-COLONOSCOPY (12/31/2017 12:00 AM CDT) [...] 12 months since positive culture): resides in acute/correction care, receiving hemodialysis, has chronic open wounds/skin damage, has long-term percutaneous indwelling medical devices Exclusions for nares collection (if <12 months since positive culture) include all of the previous exclusions plus patients on antibiotics 7 days prior to collection 01/17/2024 01/17/2024 Insurance [phone] [place] [address] [facility] [place] [address] Advance Directives * Full Code (Latest Code Status on File) Date Activated Date Inactivated Comments 01/17/2024 5:28 AM 01/23/2024 3:44 PM Question Answer Comments Code Status Discussion: Reviewed Preferences Care Teams Hook And Eye Attacher Relationship Specialty Start Date End Date Romeo Mendez MD [address] [place] [id number] PCP - General Internal Medicine 12/05/24
--- OUTSIDE RECORDS SUMMARY | 2025-07-08 21:12 | XMS_ITS | Data Portability ---
Author Organization [place] - [facility] Address [address] [place] [address] Care Team Providers Care Coke Wheeler Name Role Phone [facility] Primary Care Provider Assessment Encounter Date Assessment [...] for possible sling - was referred to [facility] re: possible B cell lymphoma in prostate chips [facility] Not available 10/03/2024 11:47:50 Plan of Treatment Reminders Order Date Submit Date Provider Last Modified By Organization Details Last Modified Time Details Appointments None record ed. Lab PSA, serum or plasma 2024 025 mmadrigalvaler o [facility], [address], [place], [address], 5 11:11:54 urinal ysis, dipsti ck 2023 024 [email or web address] [facility], [address], [place], [address], 4 16:05:45 cultur e, urine 2023 024 [facility], [address], [place], [address], 09:41:12 Referral None record ed. Procedures None [...] for provi ozzie revie w. Not Available [facility] [address], [place], [address], 02/20/2024 09:41:12 02/18/20 24 02/18/2024 urina lysis , dipst ick BLOOD Large (250 RBC/uL ) Not Available [facility] [address], [place], [address], 02/18/2024 16:02:33 02/18/2002/18/2024 urina lysis , dipst ick NITRITES Negati ve Not Available [facility] [address], [place], [address], 02/18/2024 16:02:33 02/18/20 24 02/18/2024 urina lysis , dipst ick LEUKOCYTES Large (500 WBC/uL ) Not Available [facility] [address], [place], [address], 02/18/2024 16:02:33 10/03/19 25 10/03/2024 PSA, serum or plasm a PSA 0.11ng /mL 0-4.0 NG/mL Not Available [facility] [address], [place], [address], 10/03/2024 11:11:31 09/29/19 25 09/23/2024 MRI, prost ate, w/wo contr ast No observ ation record ed. [facility] [place] [address] , [place], [address], 10/03/2024 11:23:19 Result Notes None recorded. Problems Name Problem SNOMED Code Status Onset Date Resolution Date Notes Provider Name and Address Organization Details Recorded Time Abscess of prostate 5170062 Active 2024 Glen vanegas MD, PHD [address] [place] [address], [phone], [facility] 11:42:51 Male urinary stress incontinence 625136942 Active 2024 Glen vanegas MD, PHD [address] [place] [address], [phone], [facility] 11:43:01 Problem Notes None recorded. Procedures Surgical History Date Name Laterality Status Provider Name and Address Organization Details Recorded Time 10/03/19 25 Bladder Scan completed Glen Chavez MD, PHD [address] [place] [address],[address], [address], [facility] 10/03/2024 11:18:27 10/03/19 25 Blood Draw/CLUB LOUNGE ATTENDANT/PSA RESULTS completed Glen Chavez MD, PHD [address] [place] [address],[address], [address], [facility] 10/03/2024 11:18:44 01/19/20 24 Prostate Surgery completed Tyra Almendarez [facility] 02/18/2024 14:53:31 02/09/20 18 colonoscopy completed Tyra Fryarian [facility] 02/18/2024 14:53:56 Imaging Results None recorded. Procedure Notes None recorded. Medical Equipment None Reported. Allergies Allergen ID Allergen Name Allergen Category Reaction Reaction Severity Criticality Documentation Date Start Date Code Code System Note Provider Name and Address Organization Details Recorded Time 148439 iodine medicatio n hives Not available Not available 10/03/20242019 5933 RxNorm Tammi arce [facility] 11:12:22 Medications Name Sig Start Date [...] Updated DateTime 10/03/2024 170.18 cm 38.8 kg/m2 184893.91 g Tammi cavazos [facility] 10/03/2024 11:12:19 Date Recorded Body height Body mass index (BMI) Body weight Provider Name and Address Organization Details Last Updated DateTime 02/18/2024 170.18 cm 38.8 kg/m2 923207.91 evaristo Shahrk [facility] 02/18/2024 14:48:42 Social History Question Answer Notes LastModified by Organizat ion Details LastModified Time Tobacco Smoking Status Former Smoker Tyra Shahrk arce [facility] 02/18/2024 14:52:27 What Is Your Level Of [...] virus, quadrivalent, preservative 5 completed [facility]24 14:48:50 Influenza, split virus, quadrivalent, preservative 1 completed [facility] 02/18/2024 14:48:50 Influenza, recombinant, quadrivalent, PF 9 completed [facility] 02/18/2024 14:48:50 zoster recombinant 2 completed [facility] 02/18/2024 14:48:50 zoster recombinant 2 completed [facility] 02/18/2024 14:48:50 Influenza, adjuvanted, quadrivalent, PF 3 completed [facility] 02/18/2024 14:48:50 COVID-19, mRNA, LNP-S, PF, 100 mcg/0.5mL dose or 50 mcg/0.25mL dose 1 completed Tyra arce [facility] 02/18/2024 14:48:50 COVID-19, mRNA, LNP-S, PF, 100 mcg/0.5mL dose or 50 mcg/0.25mL dose 1 [facility] 02/18/2024 14:48:50 COVID-19, mRNA, LNP-S, PF, 100 mcg/0.5mL dose or 50 mcg/0.25mL dose 2 [facility] 02/18/2024 14:48:51 Pneumococcal conjugate PCV20, polysaccharide [id number] conjugate, adjuvant, PF 3 completed [facility] 02/18/2024 14:48:51 COVID-19, mRNA, LNP-S, bivalent, PF, 30 mcg/0.3 mL dose 2 completed [facility] 02/18/2024 14:48:51 COVID-19, mRNA, LNP-S, PF, 50 mcg/0.5 mL 3 completed Tyra Shahanakeye null, [facility] 02/18/2024 14:48:51 pneumococcal polysaccharide PPV23 1 completed [facility] 02/18/2024 14:48:51 influenza, unspecified formulation 3 completed [facility] 02/18/2024 14:48:51 influenza, unspecified formulation 0 completed [facility] 02/18/2024 14:48:51 Tdap 7 completed Tyra Calhounkeye [facility] 02/18/2024 14:48:51 Pneumococcal conjugate PCV 13 6 completed Tyra Calhounkeye [facility] 02/18/2024 14:48:51 Influenza, high-dose, trivalent, PF 7 completed [facility] 02/18/2024 14:48:51 Td (adult), 5 Lf tetanus toxoid, preservative free, adsorbed 8 completed [facility] 02/18/2024 14:48:51 Influenza, split virus, quadrivalent, PF 7 completed [facility] 02/18/2024 14:48:51 Influenza, split virus, quadrivalent, PF 0 completed [facility] 02/18/2024 14:48:51 Influenza, split virus, quadrivalent, PF 8 completed Tyra Erickson arce, [facility] 02/18/2024 14:48:51 Influenza, split virus, quadrivalent, PF 7 completed Tyra Erickson null, [facility] 02/18/2024 14:48:51 Influenza, split virus, quadrivalent, PF 2 completed Tyra Erickson null, [facility] 02/18/2024 14:48:51 Past Encounters Encounter ID Performer Location Encounter Start Date Encounter Closed Date Diagnosis/Indication Diagnosis SNOMED-CT Code Diagnosis ICD10 Code Diagnosis IMO Codes Diagnosis Note [id number] HERNAN HUYNH PA-C [facility] [address] [place] [address] 02/18/2024 14:32:43 02/29/2024 12:35:21 Abscess of prostate 9429080 N41.2 Discussed pathology with Charito jack -- will follow up in 6 monthsOn Bactrim per ID and will be following up with them soonWill check urine culture today given his worsening incontinen ce Benign pro static hyperplasia with outflow obstruction 808947919 N40.1 S/p TURP, prostate abscess unroofing 01/18 (aKndy vanegas)Still having some incontinen ce, managed with depends at this timeDiscus sed prolonged course of healing, incontinen ce may yet improve as he is only a few weeks out from surgery but due to the size/locat ion of his abscess this may be a chronic issue [id number] Glen jack MD, PHD _[facility] [address] [place] [address] 10/03/2024 10:18:18 10/08/2024 09:54:55 Abscess of prostate 7075953 N41.2 Benign pro static hyperplasia with outflow obstruction 280972569 N40.1 Male urina ry stress incontinence 867313934 N39.3 Health Concerns Section Related Observation LastModified by Organization Detai ls LastModified Time None Recorded Concern Status LastModified by Organization Details LastModified Time None Recorded Advance Directives Directive None Recorded Payers Insurance Date Sequence Insurance Name Policy Number Policy [place] Covered Member ID Bettencourt Member ID Guarantor Name 10/08/2024 1 [facility] (MEDICARE REPLACEMENT/A DVANTAGE - PPO) [id number] [place] [id number] [place] Notes Date Note Type Note Provider Name and Address Organization Details Recorded Time 02/18/2024 text/html 68 yo M presents for prostate abscess follow up. Recently admitted to [facility] with urosepsis with finding of prostate abscess, now s/p TURP and prostate abscess unroofing with Dr Chavez on 01/19/24. Postoperatively was weaned from CBI and discharged on 6 week course of Septra per ID. He was discharge with breaux x1 week, removed without issue in [place]. Was then admitted to [facility] with hypokalemia a couple weeks ago. [...] Mhx: T2DM, on warfarin HERNAN HUYNH PA-C [address] [place] [address],[address], [place], [address], [facility] 02/19/2024 14:59:15 10/03/2024 text/html 69M presents for prostate abscess follow up. Feeling bloated last few months. 01/19/24: TUR/unroofing prostate abscess:Surgical pathology with prostatic hyperplasia and chronic active prostatitis but also notable forRare foci of atypical B-cells, positive for clonal B-cell gene rearrangement: Suspicious for involvement by B-cell lymphoma.Referral was made to [facility]. LUTS: some leakage; improving somewhat, uses 6-8 pads/day MRI prostate (09/23/24): 39g, resolved abscess, no suspicious lesions, no LAD PMH: DM2, AFib PSA results10/03/24: 0.11 Glen Chavez MD, PHD [address], [place], [address], [facility] 10/03/2024 11:47:56
[2025-07-08 21:18] VITALS: BP 154/74; PULSE 73; RESP 20; TEMP 36.1; O2SAT 93; BMI 45.3
--- NOTE | 2025-07-08 21:21 | CRLHL7_ITS ---
For Patients: As a result of the Century Cures Act, medical imaging exams and procedure reports are released immediately into your electronic medical record. You may view this report before your referring provider. If you have questions, please contact your health care provider. INDICATION: Dizziness, right-sided headache. TECHNIQUE: CT head without contrast. COMPARISON: None. FINDINGS: CSF spaces: Proportionate prominence of the ventricles and sulci, reflecting mild generalized cerebral volume loss. Brain parenchyma: The liao-white differentiation is maintained. No evidence of intracranial hemorrhage, extra-axial collection, or midline shift. Atherosclerotic calcifications of the cavernous carotids and carotid siphons. Skull base and calvarium: The visualized paranasal sinuses and mastoid air cells demonstrate no acute or significant findings. The visualized orbits are grossly unremarkable. Calvarium is intact. IMPRESSION: No acute intracranial abnormality. Please note that all CT scans at this facility use dose modulation, iterative reconstruction, and/or weight-based dosing when appropriate to reduce radiation dose to as low as reasonably achievable. Dictated by Jose Angel Bazan MD @ 07/08/2025 10:25:34 PM (Electronically Signed)
--- NOTE | 2025-07-08 21:52 | ED.GENADULT ---
HPI - General Adult General Time Seen by Provider: 21:52 Date Seen: 07/08/25 Chief complaint: Abdominal Pain Stated complaint: swelling abdomen/ankles/legs Time Seen by Provider: 07/08/25 21:52 Source: patient Mode of arrival: ambulatory History of Present Illness HPI narrative: Juma is a 69-year-old male with a past medical history of hypertension, diabetes, heart failure, cardiomyopathy, chronic kidney disease, on chronic anticoagulation with warfarin who presents to the emergency department for edema. Patient reports worsening lower extremity ankle/feet edema over the past few days. Patient reports he is on diuretics - spironolactone and torsemide however reports. A few days ago. Patient noted increased swelling in his abdomen so called the clinic on Sunday and restarted taking on. Patient states that he does not like to take them as they make him urinate often. Patient noted increased swelling to his lower extremities over the past few days as well as a sore to his right 2nd toe that is not healing well. Patient denies any recent trauma or injury. Also c/o of headache and is on chronic anticoagulation with warfarin. Patient denies any fever, chills, chest pain, shortness of breath. Patient states he sleeps in a recliner in wears his CPAP. No other complaints. Patient states that he does not wear compression stockings and has not been elevating his legs while at rest because it is uncomfortable. Patient feels as if he is not able to manage his fluid overload at home so came to the emergency department. Related Data Home Medications ?Medication ?Instructions ?Recorded ?Confirmed amlodipine 10 mg tablet 10 mg PO DAILY 11/13/24 06/11/25 lisinopril 40 mg tablet 40 mg PO DAILY 11/13/24 06/11/25 multivitamin (Daily Multi-Vitamin 1 tab PO DAILY 11/13/24 06/11/25 tablet) omega 4-efp-svy-fish oil 1,000 mg 1 cap PO DAILY 11/13/24 06/11/25 (120 mg-180 mg) capsule (Fish Oil) aspirin 325 mg tablet 325 mg PO DAILY 06/04/25 06/11/25 Previous Rx's ?Medication ?Instructions ?Recorded rosuvastatin 20 mg tablet 20 mg PO QPM #90 tabs 11/20/24 blood-glucose sensor (Twelvefold G7 #3 ea 01/21/25 Sensor device) insulin aspart U-100 100 unit/mL 25 unit (0.25 mL) subcut TIDWMEAL 01/21/25 (3 mL) subcutaneous pen (Novolog #27 mL FlexPen U-100 Insulin aspart) metformin 500 mg tablet,extended 1,000 mg (2 x 500 mg) PO BID #360 04/27/25 release 24 hr tabs metoprolol tartrate 100 mg tablet 100 mg PO BID #180 tabs 04/27/25 torsemide 20 mg tablet 40 mg (2 x 20 mg) PO DAILY@0800 05/06/25 #180 tabs insulin glargine 100 unit/mL (3 60 unit (0.6 mL) subcut BID #15 mL 06/07/25 mL) subcutaneous pen (Lantus Solostar U-100 Insulin) spironolactone 25 mg tablet 50 mg (2 x 25 mg) PO DAILY #60 tabs 06/07/25 warfarin 5 mg tablet 5 - 10 mg PO DAILY #90 tabs 07/02/25 Allergies Allergy/AdvReac Type Severity Reaction Status Date / Time No Known Drug Allergies Allergy Verified 06/11/25 10:19 Review of Systems Narrative: Past medical history, past surgical history, medications, allergies, family history, and social history were reviewed with the patient. No additional pertinent items. A medically appropriate review of systems was performed with pertinent positives and negatives noted in HPI, all other systems negative. [facility] Medical History (Updated 07/09/25 @ 02:05 by Pam Buitrago MD) HFrEF (heart failure with reduced ejection fraction) ?I50.20 - Unspecified systolic (congestive) heart failure (ICD-10) Uncontrolled diabetes mellitus Patient cannot afford medications ?Z59.86 - Financial insecurity (ICD-10) BPH loc w urin obs/LUTS ?N40.1 - Benign prostatic hyperplasia with lower urinary tract symptoms (ICD-10) Mural thrombus of heart (2017) ?I51.3 - Intracardiac thrombosis, not elsewhere classified (ICD-10) Patent foramen ovale (10/09/16) ?Q21.12 - Patent foramen ovale (ICD-10) Ascending aorta dilation (07/02/23) ?I77.810 - Thoracic aortic ectasia (ICD-10) Acute heart failure with mildly reduced ejection fraction (HFmrEF) (03/2025) ?I50.21 - Acute systolic (congestive) heart failure (ICD-10) Cholelithiasis ?K80.20 - Calculus of gallbladder without cholecystitis without obstruction (ICD-10) MRSA bacteremia ?R78.81 - Bacteremia (ICD-10) ?B95.62 - Methicillin resistant Staphylococcus aureus infection as the cause of diseases classified elsewhere (ICD-10) Abscess of prostate (01/2024) ?N41.2 - Abscess of prostate (ICD-10) CKD (chronic kidney disease) stage 2, GFR 60-89 ml/min ?N18.2 - Chronic kidney disease, stage 2 (mild) (ICD-10) Sleep apnea (03/30/16) ?G47.30 - Sleep apnea, unspecified (ICD-10) Right atrial thrombus (10/08/19) ?I51.3 - Intracardiac thrombosis, not elsewhere classified (ICD-10) Hypertension (03/30/16) ?I10 - Essential (primary) hypertension (ICD-10) H/O bacterial endocarditis (06/21/18) ?Z86.79 - Personal history of other diseases of the circulatory system (ICD-10) Type 2 diabetes mellitus (03/03/11) ?E11.9 - Type 2 diabetes mellitus without complications (ICD-10) Cardiomyopathy (07/10/18) ?I42.9 - Cardiomyopathy, unspecified (ICD-10) Anticoagulation monitoring, INR range 2-3 (10/09/19) ?Z79.01 - retirement (current) use of anticoagulants (ICD-10) Adenomatous colon polyp (01/01/18) ?D12.6 - Benign neoplasm of colon, unspecified (ICD-10) Surgical History History of prostate surgery (01/2024) ?Z98.890 - Other specified postprocedural states (ICD-10) H/O cystoscopy ?Z98.890 - Other specified postprocedural states (ICD-10) H/O colonoscopy ?Z98.890 - Other specified postprocedural states (ICD-10) Family History Mother Cardiac arrhythmia Father Leukemia Diabetes Brother Non-melanoma skin cancer Social History (Updated 07/08/25 @ 23:47 by Nadeen Tuttle MD) Narrative: since 1991, lives independently at [facility], 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 In the past 12 months, utilities in danger of being shut off: no In past 12 months, lack of transportation kept you from medical appts, meetings, work, or getting things needed for daily living: no In the past 12 mos, have been you worried that your food would run out before you had money to buy more?: never true In the past 12 mos, the food you bought just didn't last and you didn't have money to buy more?: never true Highest level of school completed/degree received: Bachelor's degree Smoking Status: Former smoker What tobacco products do you use: cigars Do you use any of these nicotine containing products: None Second hand tobacco smoke exposure: No How often do you have a drink containing alcohol: monthly or less Alcohol type: beer, wine and hard liquor How many standard drinks containing alcohol do you have on a typical day: 1 or 2 How often do you have six or more drinks on one occasion: Never AUDIT-C Alcohol total score: 1 Non-prescribed substance use: denies use Caffeine: Yes (coffee rarely) How often does anyone, including family, friends and others, physically hurt you: never How often does anyone, including family, friends and others, insult or talk down to you: never How often does anyone, including family, friends and others, threaten you with harm: sometimes How often does anyone, including family, friends and others, scream or curse at you: never service: No Health Related Social Needs: Other personal risk factors, not elsewhere classified (Z91.89) Exam Narrative: Exam Narrative: General: Afebrile, no acute distress HEENT: Normocephalic, atraumatic, conjunctiva normal. MMM Neck: non-tender, supple Cardio: regular rate. regular rhythm Resp: Normal work of breathing, no respiratory distress, lungs clear bilaterally, no wheezing, rhonchi, rales Chest/Back: no visual signs of trauma, no midline tenderness, no CVA tenderness Abdomen: soft, distension, no fluid wave, no tenderness, no peritoneal signs Neuro: alert and fully oriented. CN II-XII grossly intact. Grossly normal strength and sensation in all extremities. MSK: b/l lower extremity edema with lower extremities with few chronic draining lesions, no erythema, no fluctuance, no evidence of cellulitsis. Right 2nd toe with some swelling, appears to have bruising/ecchymosis, Normal range of motion Integumentary/Skin: no rash visualized, normal color Psych: normal affect, normal behavior Const: Vital Signs, click to edit/add: Vital Signs - 24 hr 07/08/25 21:18 07/08/25 22:45 07/08/25 23:17 Temperature 97 F L Pulse Rate 64 Pulse Rate [Pulse Oximeter] 73 150 H Respiratory Rate 20 Blood Pressure [Ri ght Upper Arm] 154/74 H Pulse Oximetry 93 93 93 Oxygen Delivery Me thod Room Air Room Air 07/08/25 23:30 Temperature Pulse Rate 63 Pulse Rate [Pulse Oximeter] Respiratory Rate Blood Pressure [Ri ght Upper Arm] Pulse Oximetry 95 Oxygen Delivery Me thod Course Vital Signs Vital signs: Initial Vital Signs Temperature 97 F L 07/08/25 21:18 Temperature Source Temporal Artery Scan 07/08/25 21:18 Pulse Rate 73 07/08/25 21:18 Respiratory Rate 20 07/08/25 21:18 Blood Pressure 154/74 H 07/08/25 21:18 Blood Pressure Mean 100 07/08/25 21:18 Blood Pressure Position Sitting 07/08/25 21:18 Pulse Oximetry 93 07/08/25 21:18 Oxygen Delivery Method Room Air 07/08/25 21:18 Vital Signs Temperature 97 F L 07/08/25 21:18 Pulse Rate 73 07/08/25 21:18 Respiratory Rate 20 07/08/25 21:18 Blood Pressure 154/74 H 07/08/25 21:18 Pulse Oximetry 93 07/08/25 21:18 Oxygen Delivery Method Room Air 07/08/25 21:18 Temperature 98.1 F 07/08/25 23:49 Pulse Rate 63 07/08/25 23:49 Respiratory Rate 18 07/08/25 23:49 Blood Pressure 141/63 H 07/08/25 23:49 Pulse Oximetry 94 07/08/25 23:49 Oxygen Delivery Method Room Air 07/08/25 23:49 Medications Administered Medications: Generic Name Dose Route Start Last Admin Trade Name Freq PRN Reason Stop Dose Admin Furosemide 40 mg 07/08/25 23:45 07/09/25 01:15 Furosemide 10 Mg/Ml Inj IVP 40 mg Q8H BILLIE Administration Insulin Glargine 55 unit 07/09/25 09:00 07/09/25 01:18 Insulin Glargine,Hum.Rec.Anlog 100 Unit/Ml Insuln.Pen SUBCUT 55 unit BID BILLIE Administration Medical Decision Making MDM Narrative Medical decision making narrative: Juma is a 69-year-old male with a past medical history of hypertension, diabetes, heart failure, cardiomyopathy, chronic kidney disease, on chronic anticoagulation with warfarin who presents to the emergency department for edema. Upon arrival patient is chronically ill-appearing but otherwise no distress. Patient is slightly hypertensive upon arrival with blood pressure 154/74, no tachycardic heart rate 73, oxygen 93% on room air. Differential diagnosis includes but is not limited to acute on chronic CHF versus fluid overload versus acute kidney injury versus metabolic/electrolyte versus infection among others. Upon arrival comprehensive labs, CT imaging, x-ray performed. I reviewed EKG which demonstrates sinus rhythm with first-degree AV block AZ 336, left axis deviation, ventricular rate of 64 beats per minute, QTC 402, no acute ischemic change. I reviewed comprehensive labs which are remarkable for no leukocytosis white blood cell count 7.9, hemoglobin 13.1, INR 2.0, no acute metabolic or electrolyte abnormality, creatinine 1.2, glucose 228, troponin 0.01, BNP 100. I personally reviewed and interpreted CT the head which demonstrates no acute intracranial process/hemorrhage/mass/stroke. I personally reviewed interpreted chest x-ray which demonstrates no significant pleural effusion, no large focal infiltrate, pneumothorax. X-ray of the foot with no acute fracture, dislocation, no evidence of osseous erosions to suggest osteomyelitis. Patient states he has feels that he is unable to manage him symptoms at home so I discussed patient management with hospitalist who agrees with observation admission for IV diuresis. Patient understands and agrees the plan. Medical Records Medical records reviewed: Yes I reviewed the patient's medical records Lab Data Lab results reviewed: Yes I reviewed the patient's lab results Labs: Lab Results 07/08/25 Range/Units 22:40 WBC 7.92 (4.50-11.00) K/uL RBC 4.51 (4.30-5.90) m/uL Hgb 13.1 L (13.5-17.5) gm/dL Hct 38.8 (37.0-53.0) % MCV 86 (80-100) fL MCH 29 (26-34) pg MCHC 34 (32-36) gm/dL RDW Coeff of Yunior 14.9 (11.5-15.5) % Plt Count 201 (140-440) K/uL Neut % (Auto) 65.0 (42.0-72.0) % Lymph % (Auto) 15.3 L (20-44) % Dundy % (Auto) 15.2 H (0.0-11.0) % Eos % (Auto) 3.3 (0.0-7.0) % Baso % (Auto) 0.6 (0.0-3.0) % Neut # (Auto) 5.15 (1.7-7.0) K/uL Lymph # (Auto) 1.20 (0.90-2.90) K/uL Dundy # (Auto) 1.20 H (0.00-0.90) K/UL Eos # (Auto) 0.26 (0.00-0.50) K/uL Baso # (Auto) 0.05 (0.00-0.30) K/uL Abs Immat Gran (auto) 0.05 (0.00-0.30) K/uL Imm/Tot Granulo (auto) 0.6 % INR 2.01 H (0.91-1.10) Sodium 139 (135-149) mmol/L Potassium 4.2 (3.6-5.1) mmol/L Chloride 100 (96-114) mmol/L Carbon Dioxide 29 (20-32) mmol/L Anion Gap 10 (7-15) mEq/L BUN 21 (7-30) mg/dL Creatinine 1.2 (0.5-1.5) mg/dL Estimated Creat Clear 55.85 Estimated GFR 66 ml/min Glucose 228 H (60-115) mg/dL Calcium 9.7 (8.4-10.6) mg/dL Total Bilirubin 0.6 (0.1-1.5) mg/dL AST 40 H (12-35) U/L ALT 37 (4-50) U/L Alkaline Phosphatase 68 (40-150) U/L Troponin I 0.01 (0.01-0.04) ng/mL NT-Pro-B Natriuret Pep 100 (See Note) pg/mL Total Protein 7.7 (6.0-8.3) g/dL Albumin 4.3 (3.3-5.0) g/dL Discharge Plan Discharge Clinical Impression: Bilateral lower extremity edema, HFrEF (heart failure with reduced ejection fraction) Patient Disposition: Admitted As Observation Condition: Stable
--- NOTE | 2025-07-08 22:13 | CRLHL7_ITS ---
For Patients: As a result of the Century Cures Act, medical imaging exams and procedure reports are released immediately into your electronic medical record. You may view this report before your referring provider. If you have questions, please contact your health care provider. INDICATION: Chest pain, shortness of breath. TECHNIQUE: Chest 2 views. COMPARISON: 06/04/2025. FINDINGS: Cardiovascular and mediastinum: Cardiomediastinal silhouette is within normal limits. Lungs and pleural spaces: Lungs are clear. No sign of infiltrate or mass. No sign of pleural effusion. No pneumothorax. Bones and soft tissues: No significant findings. IMPRESSION: No acute findings and no significant changes from the prior exam. Dictated by Jose Angel Bazan MD @ 07/08/2025 11:12:23 PM (Electronically Signed)
--- NOTE | 2025-07-08 22:13 | CRLHL7_ITS ---
For Patients: As a result of the Cures Act, medical imaging exams and procedure reports are released immediately into your electronic medical record. You may view this report before your referring provider. If you have questions, please contact your health care provider. INDICATION: Pain and swelling. TECHNIQUE: Right foot 2nd toe three views. COMPARISON: None. FINDINGS/IMPRESSION: No acute fracture or dislocation. No evidence of osseous erosions to suggest osteomyelitis. Soft tissue swelling. No soft tissue gas. Dictated by Jose Angel Bazan MD @ 07/08/2025 11:14:05 PM (Electronically Signed)
[2025-07-08 22:45] VITALS: PULSE 150; O2SAT 93
[2025-07-08 23:00] LABS: Hematocrit* 38.8 % (37.0-53.0); Hemoglobin* 13.1 gm/dL (13.5-17.5); Immature Granulocytes Abs Auto 0.05 K/uL (0.00-0.30); Immature Granulocytes Pct Auto 0.6 %; Mean Corpuscular HGB Conc 34 gm/dL (32-36); Mean Corpuscular Hemoglobin 29 pg (26-34); Mean Corpuscular Volume 86 fL (80-100); RDW Coefficient of Variation % 14.9 % (11.5-15.5); Red Blood Count* 4.51 m/uL (4.30-5.90); White Blood Count* 7.92 K/uL (4.50-11.00)
--- NOTE | 2025-07-08 23:08 | PM.IMHP1 ---
Assessment and Plan Assessment and plan (1) HFrEF (heart failure with reduced ejection fraction): Problem comment: - patient feels that he is fluid overloaded; does not appear to clinically have a significant exacerbation - Will admit for IV furosemide, strict I's and O's - EF 40-45% in 03/2025 - has cardiology follow-up scheduled 08/13/2025 Status: Acute (2) Uncontrolled diabetes mellitus: Problem comment: - A1c from 05/06/2025 is 11.9 - on Metformin and insulin (55U Lantus BID and 25 units aspart t.i.d.) - continue home regimen, sliding scale insulin added Status: Acute (3) Noncompliance with medication regimen: Problem comment: - not always taking diuretics daily as he does not feel that they are working, also has financial constraints Status: Acute (4) Anticoagulation monitoring, INR range 2-3: Problem comment: - For h/o R mural thrombus and & PFO. Goal 2-3. pharmacy to manage Status: Chronic (5) Mural thrombus of heart: Problem comment: -R mural thrombus and PFO. Chronic anticoagulation Goal 2-3. Status: Chronic (6) Toe anomaly: Problem comment: - hyperpigmentation of right 2nd toe, does not appear acutely infected (rather bruised), denies recent injury, x-ray in ER reassuring - continue to follow Status: Acute Hospitalist- H&P: HPI History of Present Illness Date Seen: 07/08/25 Chief complaint: swelling abdomen/ankles/legs Narrative: Juma South is a 69 year old male who presented to the ER with worsening edema over the past 1-2 days. Known history of HFrEF, has struggled to titrate up GDMT 2/2 financial constraints. He didn't feel like his Torsemide was working as he was having more edema in his LEs and abdomen, so stopped it for a few days last week. Called the clinic, who advised restarting this on 07/02, which he did, but then continued to have worsening edema and presented to the emergency room. No change to his chronic shortness of breath, no chest pain. Chronically sleeps in his recliner. ER Course and Findings: - reassuring/baseline labs, including troponin and BNP - no hypoxia - reassuring head CT, CXR and toe Xray Juma does not feel that he can manage his fluid overload as an outpatient, is admitted for IV diuresis. Review of Systems Status of ROS: Reports: 10 or more systems reviewed and unremarkable except as noted in History and below Narrative: - notes some bruising of his right 2nd toe with some skin desquamation medially, no pain - has had intermittent dizziness over the past week, worse when looking up. No focal neurological deficits - feels that abdomen is quite swollen, no changes in bowel habits; specifically, no constipation Medical Decision Making Medical Decision Making Code Status: Full Has patient completed a Health Care Directive: No During This Stay, Who Would You Like To Make Decisions For You In The Event You Are Unable To Make Them For Yourself?: Brother Bebeto or neighbor Carlie [facility] Medical History (Updated 07/09/25 @ 00:03 by Nadeen Tuttle MD) HFrEF (heart failure with reduced ejection fraction) ?I50.20 - Unspecified systolic (congestive) heart failure (ICD-10) Uncontrolled diabetes mellitus Patient cannot afford medications ?Z59.86 - Financial insecurity (ICD-10) BPH loc w urin obs/LUTS ?N40.1 - Benign prostatic hyperplasia with lower urinary tract symptoms (ICD-10) Mural thrombus of heart (2017) ?I51.3 - Intracardiac thrombosis, not elsewhere classified (ICD-10) Patent foramen ovale (10/09/16) ?Q21.12 - Patent foramen ovale (ICD-10) Ascending aorta dilation (07/02/23) ?I77.810 - Thoracic aortic ectasia (ICD-10) Acute heart failure with mildly reduced ejection fraction (HFmrEF) (03/2025) ?I50.21 - Acute systolic (congestive) heart failure (ICD-10) Cholelithiasis ?K80.20 - Calculus of gallbladder without cholecystitis without obstruction (ICD-10) MRSA bacteremia ?R78.81 - Bacteremia (ICD-10) ?B95.62 - Methicillin resistant Staphylococcus aureus infection as the cause of diseases classified elsewhere (ICD-10) Abscess of prostate (01/2024) ?N41.2 - Abscess of prostate (ICD-10) CKD (chronic kidney disease) stage 2, GFR 60-89 ml/min ?N18.2 - Chronic kidney disease, stage 2 (mild) (ICD-10) Sleep apnea (03/30/16) ?G47.30 - Sleep apnea, unspecified (ICD-10) Right atrial thrombus (10/08/19) ?I51.3 - Intracardiac thrombosis, not elsewhere classified (ICD-10) Hypertension (03/30/16) ?I10 - Essential (primary) hypertension (ICD-10) H/O bacterial endocarditis (06/21/18) ?Z86.79 - Personal history of other diseases of the circulatory system (ICD-10) Type 2 diabetes mellitus (03/03/11) ?E11.9 - Type 2 diabetes mellitus without complications (ICD-10) Cardiomyopathy (07/10/18) ?I42.9 - Cardiomyopathy, unspecified (ICD-10) Anticoagulation monitoring, INR range 2-3 (10/09/19) ?Z79.01 - MCC (current) use of anticoagulants (ICD-10) Adenomatous colon polyp (01/01/18) ?D12.6 - Benign neoplasm of colon, unspecified (ICD-10) Surgical History History of prostate surgery (01/2024) ?Z98.890 - Other specified postprocedural states (ICD-10) H/O cystoscopy ?Z98.890 - Other specified postprocedural states (ICD-10) H/O colonoscopy ?Z98.890 - Other specified postprocedural states (ICD-10) Family History Mother Cardiac arrhythmia Father Leukemia Diabetes Brother Non-melanoma skin cancer Social History (Updated 07/08/25 @ 23:47 by Nadeen Tuttle MD) Narrative: since 1991, lives independently at [facility], 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, 1 daughter (estranged) Walks neighbor's dog TeresaBun a mi 3 times a week, likes to garden Smoked cigars, quit 2004 Rare alcohol use, Full Code Brother Bebeto or neighbor Carlie would be MDM if needed What is your current living situation?: I presently have a place to live Problems where you live: mold and other Problems where you live details: poor ventilation In the past 12 months, utilities in danger of being shut off: no In past 12 months, lack of transportation kept you from medical appts, meetings, work, or getting things needed for daily living: no In the past 12 mos, have been you worried that your food would run out before you had money to buy more?: never true In the past 12 mos, the food you bought just didn't last and you didn't have money to buy more?: never true Highest level of school completed/degree received: Bachelor's degree Smoking Status: Never smoker Do you use any of these nicotine containing products: None Second hand tobacco smoke exposure: No How often do you have a drink containing alcohol: monthly or less Alcohol type: beer, wine and hard liquor How many standard drinks containing alcohol do you have on a typical day: 1 or 2 How often do you have six or more drinks on one occasion: Never AUDIT-C Alcohol total score: 1 Non-prescribed substance use: denies use Caffeine: Yes (coffee rarely) How often does anyone, including family, friends and others, physically hurt you: never How often does anyone, including family, friends and others, insult or talk down to you: rarely How often does anyone, including family, friends and others, threaten you with harm: rarely How often does anyone, including family, friends and others, scream or curse at you: never service: No Health Related Social Needs: Inadequate housing (Z59.1) and Other personal risk factors, not elsewhere classified (Z91.89) Meds Home Medications and Allergies Home Medications ?Medication ?Instructions ?Recorded ?Confirmed ?Type amlodipine 10 mg tablet 10 mg PO DAILY 11/13/24 06/11/25 History lisinopril 40 mg tablet 40 mg PO DAILY 11/13/24 06/11/25 History multivitamin (Daily Multi-Vitamin 1 tab PO DAILY 11/13/24 06/11/25 History tablet) omega 8-aui-pgd-fish oil 1,000 mg 1 cap PO DAILY 11/13/24 06/11/25 History (120 mg-180 mg) capsule (Fish Oil) rosuvastatin 20 mg tablet 20 mg PO QPM #90 tabs 11/20/24 06/11/25 Rx blood-glucose sensor (Dexcom G7 #3 ea 01/21/25 06/11/25 Rx Sensor device) insulin aspart U-100 100 unit/mL 25 unit (0.25 mL) subcut TIDWMEAL 05/14/25 10/02/25 Rx (3 mL) subcutaneous pen (Novolog #27 mL FlexPen U-100 Insulin aspart) metformin 500 mg tablet,extended 1,000 mg (2 x 500 mg) PO BID #360 04/27/25 06/11/25 Rx release 24 hr tabs metoprolol tartrate 100 mg tablet 100 mg PO BID #180 tabs 04/27/25 06/11/25 Rx torsemide 20 mg tablet 40 mg (2 x 20 mg) PO DAILY@0800 05/06/25 06/11/25 Rx #180 tabs aspirin 325 mg tablet 325 mg PO DAILY 06/04/25 06/11/25 History insulin glargine 100 unit/mL (3 60 unit (0.6 mL) subcut BID #15 mL 06/07/25 06/11/25 Rx mL) subcutaneous pen (Lantus Solostar U-100 Insulin) spironolactone 25 mg tablet 50 mg (2 x 25 mg) PO DAILY #60 tabs 06/07/25 06/11/25 Rx warfarin 5 mg tablet 5 - 10 mg PO DAILY #90 tabs 07/02/25 Rx Allergies Allergy/AdvReac Type Severity Reaction Status Date / Time No Known Drug Allergies Allergy Verified 06/11/25 10:19 Exam Narrative: Exam Narrative: GEN: Alert and oriented, speaking in full sentences, nontoxic HEENT: EOMIs bilaterally, no scleral icterus CV: RRR, no obvious murmurs, distant heart sounds R: LCTA bilaterally without rales Abdomen: Protuberant, no fluid wave, no tenderness to palpation Ext: 1-2+ edema bilateral lower extremities. Right 2nd toe is hyperpigmented (appears more consistent with bruising), Skin sheared off medially. Normal capillary refill Skin: Draining vesicular lesions bilateral lower extremities, chronic and unchanged per patient Neuro: Nonfocal, no resting tremor, no pronator drift Psych: Appropriate Const: Vital Signs, click to edit/add: Vital Signs - 24 hr 07/08/25 21:18 07/08/25 22:45 Temperature 97 F L Pulse Rate [Pulse Oximeter] 73 150 H Respiratory Rate 20 Blood Pressure [Ri ght Upper Arm] 154/74 H Pulse Oximetry 93 93 Oxygen Delivery Me thod Room Air Room Air
[2025-07-08 23:10] LABS: Lymphocytes Absolute Auto 1.20 K/uL (0.90-2.90); Slide Review Reflex No
[2025-07-08 23:14] LABS: Albumin* 4.3 g/dL (3.3-5.0); Chloride* 100 mmol/L (96-114); Sodium* 139 mmol/L (135-149)
[2025-07-08 23:15] LABS: Potassium* 4.2 mmol/L (3.6-5.1)
[2025-07-08 23:17] VITALS: PULSE 64; O2SAT 93
[2025-07-08 23:17] LABS: Alanine Aminotransferase* 37 U/L (4-50); Anion Gap 10 mEq/L (7-15); Aspartate Amino Transferase* 40 U/L (12-35); Blood Urea Nitrogen* 21 mg/dL (7-30); Carbon Dioxide* 29 mmol/L (20-32); Creatinine* 1.2 mg/dL (0.5-1.5); Est. Creatinine Clearance* 55.85; Estimated Glomerular Filt Rate 66 ml/min
[2025-07-08 23:18] LABS: Alkaline Phosphatase* 68 U/L (40-150); Bilirubin Total* 0.6 mg/dL (0.1-1.5); Calcium* 9.7 mg/dL (8.4-10.6); Glucose* 228 mg/dL (60-115); Total Protein* 7.7 g/dL (6.0-8.3)
[2025-07-08 23:22] LABS: INR 2.01 (0.91-1.10); Prothrombin Time 23.8 Seconds
[2025-07-08 23:30] VITALS: PULSE 63; O2SAT 95
[2025-07-08 23:42] LABS: NT Pro B Type NatriureticPept* 100 pg/mL (See Note)
[2025-07-08 23:49] VITALS: BP 141/63; PULSE 63; RESP 18; TEMP 36.7; O2SAT 94; BMI 45.6
[2025-07-09] MEDS: FUROSEMIDE 10 MG/ML inj 40 MG IVP ×2 (01:15→09:03)
[2025-07-09 03:27] VITALS: BP 139/66; PULSE 61; RESP 16; TEMP 35.8; O2SAT 96
--- NOTE | 2025-07-09 06:27 | PC.NURSE ---
Shift note ([id number]): Patient admitted from ED at 2340. Arrived in wheelchair. Pt pleasant, alert and oriented. BS at time of admission was 175. Patient given HS Lantus and had a bedtime snack. BS at 0530 was 149. Reported pain rated 5-6/10 on admission. Denied pain during VS at ?0330. Ambulates independently in room. Good urine output.?
[2025-07-09 07:00] VITALS: BP 136/64; PULSE 61; PULSE 68; RESP 18; TEMP 36.4; O2SAT 96
[2025-07-09 07:07] LABS: Hematocrit* 38.7 % (37.0-53.0); Hemoglobin* 13.1 gm/dL (13.5-17.5); Immature Granulocytes Abs Auto 0.02 K/uL (0.00-0.30); Immature Granulocytes Pct Auto 0.3 %; Mean Corpuscular HGB Conc 34 gm/dL (32-36); Mean Corpuscular Hemoglobin 29 pg (26-34); Mean Corpuscular Volume 86 fL (80-100); RDW Coefficient of Variation % 15.1 % (11.5-15.5); Red Blood Count* 4.49 m/uL (4.30-5.90); White Blood Count* 7.16 K/uL (4.50-11.00)
[2025-07-09 07:10] LABS: Lymphocytes Absolute Auto 1.10 K/uL (0.90-2.90)
[2025-07-09 07:11] LABS: Slide Review Reflex No
[2025-07-09 07:26] LABS: Chloride* 101 mmol/L (96-114)
[2025-07-09 07:27] LABS: Potassium* 3.8 mmol/L (3.6-5.1); Sodium* 137 mmol/L (135-149)
[2025-07-09 07:30] LABS: Anion Gap 9 mEq/L (7-15); Blood Urea Nitrogen* 22 mg/dL (7-30); Calcium* 9.2 mg/dL (8.4-10.6); Carbon Dioxide* 27 mmol/L (20-32); Creatinine* 1.1 mg/dL (0.5-1.5); Est. Creatinine Clearance* 60.93; Estimated Glomerular Filt Rate 74 ml/min; Glucose* 176 mg/dL (60-115)
--- NOTE | 2025-07-09 07:55 | PC.NURSE ---
Maribell Gore updated regarding pt reports of reaction to CT scan tincture iodine contrast over 40 yrs ago. Per Lyn Gore they no longer use that contrast no need to add to Allergies list.
[2025-07-09] MEDS: INSULIN ASPART 100 UNIT/ML 25 UNIT SUBCUT ×2 (09:03→13:00)
[2025-07-09] MEDS: SODIUM CHLORIDE 0.9 % (FLUSH) 10 ML SYRINGE 5 ML IVF (09:03)
[2025-07-09] MEDS: WARFARIN 5 MG TABLET PO (09:04)
[2025-07-09] MEDS: ASPIRIN EC 325 MG TABLET PO (09:04)
[2025-07-09] MEDS: METOPROLOL TARTRATE 100 MG TABLET PO (09:04)
[2025-07-09] MEDS: METFORMIN ER 500 MG 1000 MG PO (09:04)
[2025-07-09] MEDS: SPIRONOLACTONE 25 MG TABLET 50 MG PO (09:04)
--- NOTE | 2025-07-09 09:57 | W.PC.NUTR.NO ---
Nutrition Progress Note Progress Note Progress Note: RDN with MD consult and positive MST for wounds. Patient admitted with heart failure. Medical history includes, but not limited to uncontrolled type 2 diabetes mellitus, cardiomyopathy, hypertension, sleep apnea, CKD, ascending aorta dilation, obesity, and non-compliance with medication regimen. Per exhaust equipment operator, patient has multiple open areas on bilateral lower extremities, some weeping sores, and draining vesicular lesions on bilateral extremities. Patient comes from [facility] independent living. Per exhaust equipment operator, patient ate 100% at breakfast this morning. Current weight 291lbs, height 5ft 7in, and BMI 45.6kg/m2. Weight history: 284lbs 06/07/25, 288lbs 05/06/25, 292lbs 04/05/25, 294lbs 02/18/25, and 288lbs 01/21/25. Weight fairly stable, but fluctuations likely related to heart failure diagnosis and fluid status. Patient is currently on Lasix. RDN visited with patient in room on this day. Patient declined nutrition education for heart failure, diabetes, and wound healing. Patient was accepting of education materials, which were provided to patient for his reference. Patient reports doing the cooking and grocery shopping. Patient reports being mindful of salt intake and label reading. He also notes eating more fish recently. Patient reports knowing what he needs to do with his diet, but does not always follow it. RDN encouraged protein intake for wound healing. Patient declined nutrition supplements at this time. Patient had no questions or concerns at this time. RDN encouraged patient to consider visiting with a dietitian in a clinic setting for medical nutrition therapy related to diabetes. RDN contact information was provided and patient was encouraged to call with questions. RDN will continue to monitor and follow-up prn.
[2025-07-09 11:00] VITALS: BP 140/82; PULSE 64; RESP 18; TEMP 36.2; O2SAT 95
--- NOTE | 2025-07-09 11:16 | P.DS_ITS ---
DS: Providers Provider Date Seen: 07/09/25 Date of admission: 07/08/25 23:48 Primary care physician: Chen Syed MD Admitting Clinician: Nadeen Tuttle MD Consults: 07/08/25 23:54 Consult to Nutrition [CONS] Routine Comment: Reason for consult:: Miscellaneous Comment: cardiac diet Consult to Occupational Therapy [CONS] Routine Comment: Reason(s) for OT Consult:: Evaluate and Treat Any Restrictions?:: No Restrictions Comment: edema wear, ADLs 07/09/25 01:53 Consult to Dental Technician Metal [CONS] Routine Comment: Reason for Consult:: Social Service Consult Attending Physician on discharge: Nadeen Tuttle MD Date of Discharge: 07/09/25 DS: Diagnosis Discharge Diagnosis (1) Lymphedema: Status: Acute Problem details: chronic; open sores. recommended lymphedema clinic for wraps and/or pumps. he has edema wear. he has diuretics. -noncompliance is his biggest barrier to improvement. -pt should work with chronic disease management nurse to avoid the ED and hospital observations stays (2) Noncompliance with medication regimen: Status: Acute Problem details: - not always taking diuretics daily as he does not feel that they are working, also has financial constraints (3) HFrEF (heart failure with reduced ejection fraction): Status: Acute Problem details: - patient feels that he is fluid overloaded; does not appear to clinically have a significant exacerbation - Will admit for IV furosemide, strict I's and O's - EF 40-45% in 03/2025 - has cardiology follow-up scheduled 08/13/2025 (4) Uncontrolled diabetes mellitus: Status: Acute Problem details: - A1c from 05/06/2025 is 11.9 - on Metformin and insulin (55U Lantus BID and 25 units aspart t.i.d.) - continue home regimen, sliding scale insulin added (5) Congestive heart failure: Status: Acute Problem details: - Echocardiogram from April 03, 2025 shows ejection fraction of 40-45% without significant valvular disease. DS: Summary Hospital Course Hospital Course: QUESTIONS/CONCERNS FOR FOLLOW UP -how is the compliance with all medications? -is he getting some exercise? -has he met with lymphedema clinic? BRIEF HOSPITAL COURSE: Patient was admitted overnight. Synopsis of acute inpatient issues are outlined above. Chronic medical conditions with notable findings outlined above. Deniz is here for overnight observation and help with his ongoing lower extremity chronic lymphedema. Compliance and insight remain the largest barrier for Deniz. We discussed all of the therapies from general walking and being active, low- salt diet, medications, edema wear, and follow-up appointments. I encouraged Deniz that when he feels overwhelmed or having it issue with any of the therapies, call his PCP or chronic care nurse and work through these difficulties and or find alternatives. No new med changes today. The only thing I did was at a lymphedema clinic referral. DISCHARGE MEDICATIONS: See Reconciled list - SIGNIFICANT CHANGES: No changes Specific instructions to the patient and follow-up are outlined below. REVIEW OF SYSTEMS No new chest pain or dyspnea Pain controlled No voiding difficulties Tolerating diet challenge PHYSICAL EXAM: CONSTITUTIONAL: Conversive, good historian. A/O. Knows setting and context. GENERAL: Well-developed and above ideal body weight, in no respiratory distress. VITAL SIGNS: see record. HEENT: Sclerae are anicteric. No petechiae. CARDIAC: rhythm is regular. There is no S3 or rub. No harsh murmurs. Extremities 1 to 2+ edema, chronic discoloration consistent with venous stasis and pooling, open superficial ulcers. PULM: good air entry with no wheeze. NEURO: Speech is fluent. A brief neurologic exam is negative. SKIN: No rashes, petechiae, concerning changes PSYCHIATRIC: Euthymic. DISPOSITION: Home, [facility]. Time spent on discharge 37 minutes. Status at Discharge Functional status at discharge: uses cane/walker Overall status at discharge: patient is progressing back to baseline Time Spent with Patient Time attestation: Total time spent providing and/or coordinating discharge services: Time spent: Greater than 30 minutes Exam Const: Vital Signs, click to edit/add: Vital Signs - 24 hr 07/08/25 21:18 07/08/25 22:45 07/08/25 23:17 Temperature 97 F L Pulse Rate 64 Pulse Rate [Pulse Oximeter] 73 150 H Respiratory Rate 20 Blood Pressure [Le ft Arm] Blood Pressure [Ri ght Upper Arm] 154/74 H Pulse Oximetry 93 93 93 Oxygen Delivery Me thod Room Air Room Air 07/08/25 23:30 07/08/25 23:49 07/08/25 23:49 Temperature 98.1 F Pulse Rate 63 Pulse Rate [Pulse Oximeter] 63 Respiratory Rate 18 18 Blood Pressure [Le ft Arm] 141/63 H Blood Pressure [Ri ght Upper Arm] Pulse Oximetry 95 94 94 Oxygen Delivery Me thod Room Air Room Air 07/09/25 03:27 07/09/25 07:00 07/09/25 07:00 Temperature 96.4 F L 97.5 F L Pulse Rate Pulse Rate [Pulse Oximeter] 61 61 68 Respiratory Rate 16 18 18 Blood Pressure [Le ft Arm] 139/66 136/64 Blood Pressure [Ri ght Upper Arm] Pulse Oximetry 96 96 Oxygen Delivery Me thod CPAP Room Air DS: Data Data Completed and Pending Completed studies during hospitalization: Procedures Insertion of Infusion Device into Superior Vena Cava, Percutaneous Approach (11/12/24) Introduction of Other Gas into Respiratory Tract, Via Natural or Artificial Opening (04/01/25) Labs on day of discharge: Labs from last 24 hours 07/09/25 07/08/25 06:55 22:40 WBC 7.16 7.92 RBC 4.49 4.51 Hgb 13.1 L 13.1 L Hct 38.7 38.8 MCV 86 86 MCH 29 29 MCHC 34 34 RDW Coeff of Yunior 15.1 14.9 Plt Count 186 201 Neut % (Auto) 67.6 65.0 Lymph % (Auto) 14.[address] [place] % (Auto) 12.8 H 15.2 H Eos % (Auto) 3.9 3.3 Baso % (Auto) 0.6 0.6 Neut # (Auto) 4.84 5.15 Lymph # (Auto) 1.[address] [place] # (Auto) 0.90 1.20 H Eos # (Auto) 0.28 0.26 Baso # (Auto) 0.04 0.05 Abs Immat Gran (auto) 0.02 0.05 Imm/Tot Granulo (auto) 0.3 0.6 INR 2.01 H Sodium 137 139 Potassium 3.8 4.2 Chloride 101 100 Carbon Dioxide 27 29 Anion Gap 9 10 BUN 22 21 Creatinine 1.1 1.2 Estimated Creat Clear 60.93 55.85 Estimated GFR 74 66 Glucose 176 H 228 H Calcium 9.2 9.7 Total Bilirubin 0.6 AST 40 H ALT 37 Alkaline Phosphatase 68 Troponin I 0.01 NT-Pro-B Natriuret Pep 100 Total Protein 7.7 Albumin 4.3 Preliminary micro results at discharge 07/09/25 08:00 Wound Culture - Preliminary Foot Right Culture in Progress Discharge Plan Discharge Disposition: Home, Self-Care Date of Admission: 07/08/25 23:48 Attending Provider on Discharge: Estela Buitrago Primary Care Provider: Chen Syed Condition: Stable Anticipated Discharge Date/Time: 07/09/25 11:07 Discharge Medications: Continued (DME) Dexcom G7 Sensor Device See Rx Instructions .Route Qty: 3 3RF Rx Instructions: As directed insulin aspart U-100 [Novolog FlexPen U-100 Insulin] 100 unit/mL (3 mL) insulin pen 25 unit subcut TIDWMEAL Qty: 27 2RF torsemide 20 mg tablet 40 mg PO DAILY@0800 Qty: 180 0RF Patient Comments: has not taken for a month some confusion about copay omega 8-slx-gzm-fish oil [Fish Oil] 1,000 (120-180) mg capsule 1 cap PO DAILY multivitamin [Daily Multi-Vitamin] Tablet 1 tab PO DAILY amlodipine 10 mg tablet 10 mg PO DAILY lisinopril 40 mg tablet 40 mg PO DAILY aspirin 325 mg tablet 325 mg PO DAILY spironolactone 25 mg Tablet 50 mg PO DAILY Qty: 60 0RF insulin glargine [Lantus Solostar U-100 Insulin] 100 unit/mL (3 mL) insulin pen 60 unit subcut BID Qty: 15 12RF rosuvastatin 20 mg tablet 20 mg PO QPM Qty: 90 3RF metformin 500 mg tablet extended release 24 hr 1,000 mg PO BID Qty: 360 0RF metoprolol tartrate 100 mg tablet 100 mg PO BID Qty: 180 0RF warfarin 5 mg tablet 5 - 10 mg PO DAILY Qty: 90 0RF Protocol: Dose Management Condition: Sunday Dose/Route: 5 mg Instruction: 1 x 5 mg tablet Condition: Sunday Dose/Route: 10 mg Instruction: 2 x 5 mg tablets Condition: Sunday Dose/Route: 5 mg Instruction: 1 x 5 mg tablet Condition: Sunday Dose/Route: 5 mg Instruction: 1 x 5 mg tablet Condition: Dose/Route: 10 mg Instruction: 2 x 5 mg tablets Condition: Sunday Dose/Route: 5 mg Instruction: 1 x 5 mg tablet Condition: Sunday Dose/Route: 5 mg Instruction: 1 x 5 mg tablet Protocol Text: Adjustment Start Date: 07/02/25 INR Value: 2.2 INR Date: 07/02/25 Recheck Date: 07/30/25 Rx Instructions: Take 10mg Mondays/ and 5mg all other days Discharge Orders: Discharge Order (Routine); Ordered 07/09/25 Ordered By: Estela Buitrago Patient Education: Lymphedema (DC) Additional Instructions: 1. I would like you to continue to use the edema wear stockings. They do work, if use as directed. 2. I am referring you to outpatient lymphedema clinic for discussion on wound care/compression of your legs 3. Stop using hydrogen peroxide. Use just mild soap and water to clean the skin, pat dry and a barrier ointment like Vaseline is fine. They will heal if the swelling goes down. 4. Be med compliant and before stopping a med or not refilling a medication - discuss with your primary care team 5. Keep all follow-up appointments Activity Level: Activity as Tolerated Discharge Diet: Diabetic Follow Up Appointments: [facility] [place] [Provider Group, Occupational Therapy] Referral Note: Needs lymphedema clinic evaluation 1-2 weeks Chen Syed MD [Primary Care Provider, Family Practice] - 07/30/25 9:30 am Referral Note: Forms: [employer] Info Instructions
--- NOTE | 2025-07-09 11:45 | PC.SOCIAL ---
Discharge planning: anvil worker met with the pt who states that he is still having issues with finding ways to pay for his prescription co-pays. Rhea de la cruz offered to do a refferal to the [facility], which the pt agreed with. anvil worker also left a message with Sandi-Population Health Nurse at [facility] to notify her that the pt is in the hospital again for CHF exacerbation. The pt was referred to the Chronic Care Management program through [facility] the last time he was in the hospital this past May. Social work to follow-up as needed.
--- NOTE | 2025-07-09 11:51 | PC.SOCIAL ---
Discharge planning: adz worker met with the pt who states that he is still having issues with finding ways to pay for his prescription co-pays. adz worker offered to do a referral to the [facility] now known as [facility], which the pt agreed with. The referral confirmation number for [facility] is [id number]. adz worker also left a message with SandiPopulation Health Nurse at [facility] to notify her that the pt is in the hospital again for CHF exacerbation. The pt was referred to the Chronic Care Management program through [facility] the last time he was in the hospital this past May. Social work to follow-up as needed.
--- NOTE | 2025-07-09 14:46 | PC.NURSE ---
End of shift report [id number]: Alert and oriented x 4. Headache reported but tolerating at this time. BLE edema 4+ pitting, patient abdomen appears distended and firm as well. SOB with exertion, lung sounds clear bilaterally throughout lung dixon. IV lasix administered per orders. Patient refusing compression stockings or edema wear stating I already have that stuff and it doesn't do a thing for me. Discussed with patient medication compliance and following up with recommended appts. Reports his right foot 2nd toe being sore from rubbing on my shoes because I don't wear socks, I've been soaking my foot in hydrogen peroxide several times a day. Filer Repairer inspected foot and right 2nd is open laterally and posteriorly as well as open area between 2nd and 3rd toe and 3rd to 4th toe, appears to be all one large open area with purulent drainage and malodorous. Wound culture obtained per order. Contact precautions for known MRSA. Discharge paperwork completed with patient, awaiting ride at this time.
== END 2025-07-09 15:23 | disposition home or self-care (01) ==
LOC: ED 22:57 → MEDSURG 23:48
PROVIDERS: Admitting Provider Family Medicine; Emergency Provider Emergency Medicine; PCP Family Medicine; Visit Provider Family Medicine
DX: I89.0 Lymphedema, not elsewhere classified (principal); I50.20 Unspecified systolic (congestive) heart failure; E11.65 Type 2 diabetes mellitus with hyperglycemia; Z79.01 Long term (current) use of anticoagulants; Z91.148 Patient's other noncompliance with medication regimen for other reason; I51.3 Intracardiac thrombosis, not elsewhere classified; M20.5X1 Other deformities of toe(s) (acquired), right foot
CPT/HCPCS: 36415; 70450; 71046; 73660; 80048; 80053; 83880; 84484; 85025; 85610; 87070; 87186; 93005; 94761; 96374; 97166; 99285; A9270; G0378; J1938

== ENCOUNTER 2025-07-28 09:48 | Outpatient (CLI) | payer MEDICARE, SELFPAY | END 2025-07-28 09:49 | disposition home or self-care (01) | LOC: NFLDREF 08-01 16:58 | PROVIDERS: PCP Family Medicine; Referring Provider Family Medicine; Visit Provider Family Medicine | DX: E11.65 Type 2 diabetes mellitus with hyperglycemia (principal); Z79.4 Long term (current) use of insulin; I10 Essential (primary) hypertension; E78.5 Hyperlipidemia, unspecified | CPT/HCPCS: 80053; 80061; 82043; 82570 ==